=== PATIENT | female | born 1950 | race Caucasian/White ===

== ENCOUNTER 2019-08-29 12:36 | Outpatient (CLI) | payer MEDICARE, SELFPAY ==
--- NOTE | ~2019-08-29 | CT_ITS ---
EXAMINATION: CTA brain carotid EXAM DATE: 08/29/2019 14:06 INDICATION: Posterior intermittent headaches. TECHNIQUE: Noncontrast head CT. Spiral CTA of the carotid arteries was performed with intravenous i njection 100 cc of Omnipaque 350. Axial, coronal, sagittal reformatted images reviewed. Additional r eformatted images created on dedicated 3-D workstation. NASCET comparable standard used to assess th e degree of arterial stenosis. Spiral CT angiogram cerebral arteries performed with the same intrave nous injection of contrast. Source images of the brain CTA transferred to dedicated workstation for 3 -D rotational image creation. Coronal, sagittal maximum intensity pixel images also reviewed. The d ose-length product (DLP) for this examination was 1526.78 mGy-cm. The exposure was tailored accordi ng to patient size, and iterative reconstruction (ASIR) was used as additional dose reduction techniq ue. There is no prior study for comparison. FINDINGS: There is mild bilateral carotid arterial sclerosis with 0% stenosis. Mild to moderate bilat eral carotid siphon arterial sclerosis with no more than 20% stenosis bilaterally. Vertebral arteries are codominant. There is no carotid or vertebral basilar arterial dissection or fibromuscular dyspl po. There are no cerebral artery aneurysms. There is symmetric cerebral artery arborization. The sa gittal, transverse and sigmoid sinuses enhance normally, no venous sinus thrombosis. Internal cerebra l veins also enhance normally. There is no acute intraparenchymal hemorrhage. No evidence of intraparenchymal brain mass lesion. N o evidence of acute infarction. There is mild periventricular and subcortical hypodensity, nonspecifi c but probably related to small vessel ischemic disease. Punctate old lacunar infarction within each basal ganglia. There is mild prominence of the sulci and ventricles related to cerebral atrophy. Th ere is intracranial carotid arteriosclerosis. There is no mass effect or midline shift. There is no obstructive hydrocephalus suspected. There are no extra-axial collections. There are no calvarial acute fractures. Thyroid nodules. There is cervical spondylosis. There is apical mosaic attenuation t o the lungs affecting both dependent and nondependent portions. Most likely air trapping) groundglass opacities. IMPRESSION: 1. No cervical arterial dissection or cerebral artery aneurysm. 2. No carotid bulb stenosis. Scattered arterial sclerosis with less than 20% carotid siphon stenosis bilaterally. 3. Mild age-related findings. 4. Diffuse lung mosaic attenuation, more likely air trapping and ground glass opacities. 5. Thyroid nodules. Reviewed, dictated and finalized at location A. IMPRESSION: 1. No cervical arterial dissection or cerebral artery aneurysm. 2. No carotid bulb stenosis. Scattered arterial sclerosis with less than 20% c arotid siphon stenosis bilaterally. 3. Mild age-related findings. 4. Diffuse lung mosaic attenuation, more likely air trapping and ground glass opacities. 5. Thyroid nodules.
[2019-08-29 13:48] LABS: Estimated Glomerular Filt Rate > 60
== END 2019-08-29 12:37 | disposition home or self-care (01) ==
PROVIDERS: PCP Internal Medicine; Visit Provider Psychiatry & Neurology Neurology
DX: R51 Headache (principal); R91.8 Other nonspecific abnormal finding of lung field; E04.2 Nontoxic multinodular goiter
CPT/HCPCS: 36415; 70496; 70498; Q9967

== ENCOUNTER 2024-08-02 09:00 | Outpatient (RCR) | payer MEDICARE, SELFPAY ==
--- NOTE | 2024-06-22 08:43 | OTOPDC ---
Assessment and note entered by ZAKIA Carrillo/Sally, CHT Evaluation Information & Discharge Notification 06/22/24 Diagnosis G82.91, I69.351, I69.398, I63.89 Subjective Information Patient had a CVA, she is unsure of the date. She discharged home from inpatient rehab where she lives with her . She reports she has returned to being able to dress and bathe herself. Prior to her stroke she primarily did all of the cooking and her is doing most of the cooking at this time. 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 Laundry is in the basement and is taking care of this due to the stairs, prior to CVA she was doing the laundry. Patient reports she has also resumed some cleaning duties - sweeping and cleaning counters. She reports she cannot kneel to clean the shower yet. She states she has putty from rehab and she uses it regularly. Reported Pain Level Pain Score 0: Self Report Assessment OT Clinical Summary Patient referred to OT with dx of CVA, right side affected. OT evaluation completed this AM. Patient has normal and symmetrical UB strength. Life Manager strength is WNL. Fine motor coordination is WNL. She has a putty HEP from inpatient rehab and we reviewed this and she completes independently. No further skilled OT indicated at this time. D/C OT. Plan of Care OT Services Indicated No
--- NOTE | 2024-06-22 10:02 | OPREHPOC ---
Outpatient Therapy Plan of Care This is a Multidisciplinary Plan of Care that may contain components documented by all disciplines (PT, OT, and ST.) PT Problem 1 PT Problem #1 Knowledge Deficit PT Goal 1 Goal / Goal Update *indep with HEP Target Visit 8 PT Problem 2 PT Problem #2 Impaired Functional Mobility PT Goal 1 Goal / Goal Update improve mobility and safety: * 5 reps sit/stand time of 19 seconds, without use of UE's Target Visit 8 PT Goal 2 Goal / Goal Update * Segura balance/gait score of 54/56 Target Visit 8 PT Problem 3 PT Problem #3 Impaired Strength PT Goal 1 Goal / Goal Update * single leg standing R and L x 10 seconds with good stability Target Visit 8 PT Goal 2 Goal / Goal Update pt perform sitting ankle DF to 5' x 20 reps, to improve gait skill and clearing foot with walking Target Visit 8 PT Problem 4 PT Problem #4 Impaired Functional Mobility PT Goal 1 Goal / Goal Update * 2 minute walking test distance of 400' with cane Target Visit 8 PT Goal 2 Goal / Goal Update *up/down 12 steps with alternating step pattern and one hand railing, modified indep Target Visit 8
--- NOTE | 2024-06-22 10:02 | PTOPEVAL1 ---
Assessment and note entered by Abida Winchester, PT Evaluation Information Assessment Status Evaluation ICD-10 Condition Codes (PT) Abnormalities of gait and mobility R26.9,Weakness R53.1 Other ICD-10 Condition Codes ( CVA PT) Onset May 2023 Subjective Information hospitalized, in pt rehab and then home; using wheeled walker for mobility; have not been doing all the leg exercises, but walking more and doing home things. have been out in the community with her wheeled walker and did OK activity: prior to CVA- active, indep, did not use an assistive device; home with ; 4 entry steps- bilateral rails; have basement and upstairs--not been going to basement for laundry/ grand son lives upstairs; retired; GOAL: walk without the walker; get stronger and better Reported Pain Level Pain Score 5: Self Report Pain Score 0: Self Report Additional Pain Score Comments pain in R knee from previous surgery/chronic pain Assessment PT Clinical Summary Pinky is s/p CVA. She has completed in pt rehab and returned home with her . She has not had any falls and is increasing her walking and outings into the community. She has not gone into her basement. Prior to CVA, she did not use an assistive device and was indep with all home and self care tasks. She had decreased R knee ROM due to prior R hip and distal femur ORIF's. With the evaluation: decreased strength of R LE; 2 minute walking test distance of 300' with wheeled walker; 5 reps sit/stand time of 24 seconds without using her UE's; Segura balance score of 43/56--difficulty with dynamic balance and single leg standing activities; on 4 steps, uses 1 railing and single step pattern. She is motivated to return to walking without a device and getting stronger. Skilled PT services are indicated to increase LE strength, gait and balance skills, to improve mobility to walking without an assistive device and return to prior level of activity. Plan of Care Interventions Gait Training,Neuro Re-education,Patient/Caregiver Education,Therapeutic Activities,Therapeutic Exercise PT Services Indicated Yes Treatment Frequency and 2x/wk for 8 visits Duration These treatments will address the objective and functional deficits as defined above. The patient will be advanced safely and appropriately in order for the patient to progress towards his/her prior level of function. Additional exercises will be introduced and as well as a comprehensive home exercise program upon discharge, if needed, ?to ensure carryover of functional gains achieved in the clinic. This treatment plan has been reviewed and agreement upon by the patient.
--- NOTE | 2024-07-05 15:11 | PCPTNOTE ---
Canceled due to a in the family. AKS
--- NOTE | 2024-07-24 12:01 | PTOPDC ---
Assessment and note entered by Abida Winchester, PT Assessment Status Discharge ICD-10 Condition Codes (PT) Abnormalities of gait and mobility R26.9,Weakness R53.1 Other ICD-10 Condition Codes ( CVA PT) Onset May 2023 Subjective Information feel like balance and walking are a little better; not comfortable walking with the cane, have one at home, but do not use it; no falls; is using the wheeled walker for walking; in her bathroom, it is small and not enough room for the walker, so hold onto counter top; is wearing the AFO and it helps; use the motorized scooter for shopping and long distances; Reported Pain Level Pain Score 0: Self Report Assessment PT Clinical Summary Pinky has received 7 PT sessions. Compared to the initial evaluation: Segura balance score from 43 to 48/56; increase strength of R LE; 2 minute walking test distance with wheeled walker from 300 to 385' and with cane 300'; she is awkward with using the cane and does better without it; no longer requires the R AFO for walking; is independent on stairs with use of one hand railing; education completed for HEP. She has good safety awareness and has not had any falls. The goals were partially met. Discharge PT. She is to continue with the HEP and walking as tolerated, to increase her endurance and activity level. Plan of Care PT Services Indicated No
--- NOTE | 2024-08-02 15:39 | STOPEVDC ---
Assessment and note entered by Myra Schneider, GAS LINE SERVICER Thank you for referring Pinky Yao to [facility].? An evaluation has been completed. No further treatment is needed. Evaluation Information Assessment Status Evaluation Diagnosis I69.398 CVA, I63.89 other cerebral infarction Onset 05-31-24 Subjective Information Patient was referred for a skilled ST evaluation post CVA. Patient participated in therapy treatment after hospitalization in an acute [facility] facility and reported that she felt it was very beneficial and saw great improvements. Patient reported that post CVA she had difficulty with her memory and word finding abilities. Patient reported that currently she feels that she is very close to where she was with her cognitive-communication skills prior to CVA. She continues to participate in various word games and other cognitive tasks to challenge herself in her environment. Discussion with patient regarding plan for skilled ST evaluation to assess areas of language and cognition to determine if any deficits continue to persist with response in understanding with results below. Reported Pain Level Pain Score 0: Self Report Assessment ST Clinical Summary Patient was referred for a skilled ST evaluation due to recent CVA I69.398 and other cerebral infarction I63.89. Patient participated in skilled ST treatment in an acute [facility] facility for several weeks and is currently living at home with significant other. Patient reported that after the stroke she had difficulty with cognition and communication skills but after completion of skilled ST treatment patient feels that she is currently at her PLOF. Throughout the assessment the patient spoke at the conversational level with very minimal to no difficulty with word finding skills. The SLUMS was administered with a score of 27/30 indicating normal cognitive-communication skills. Parts of the [facility] Cognitive evaluation and Adult Language Evaluation were administered during the session with very minimal difficulties within complex directives, moderate/ complex paragraph retention, moderate complexity reading comprehension, divergent naming, and sorting/categorization skills. Throughout testing patient indicated whether or not deficits were present prior to the CVA with all areas of testing currently within PLOF per patient report. Patient reported some mild difficulties with memory prior to CVA. Skilled ST is not warranted at this time due to patient presenting at PLOF with education given regarding tasks to continue to target at home to improve cognitive-communication skills with response in understanding and agreement. Plan of Care ST Services Indicated No Treatment Frequency and Evaluation only at this time. Duration
== END 2024-08-03 12:26 | disposition home or self-care (01) ==
LOC: ANHST 09:00
PROVIDERS: PCP Internal Medicine; Visit Provider Internal Medicine
DX: I69.351 Hemiplegia and hemiparesis following cerebral infarction affecting right dominant side (principal); I69.398 Other sequelae of cerebral infarction; I63.89 Other cerebral infarction; R53.1 Weakness; R26.9 Unspecified abnormalities of gait and mobility
CPT/HCPCS: 92523; 96125; 97110; 97116; 97161; 97165; 97530

== ENCOUNTER 2024-08-09 09:43 | Outpatient (CLI) | payer MEDICARE, SELFPAY ==
--- NOTE | ~2024-08-09 | CT_ITS ---
CT Scan of the Chest without Contrast: Clinical Indication: Lung nodule Technique: Contiguous sections were acquired throughout the chest without intravenous contrast. Dose reduction technique was used on this scan by utilizing automated exposure control and iterative recon struction technique. The dose-length product (DLP) was 83.55 mGy-cm. Findings: There is no evidence of any significant mediastinal, hilar or axillary lymphadenopathy. Calcified med iastinal and hilar lymph nodes are present. Extensive coronary artery calcifications are present. There is no evidence of pleural or pericardial effusion. Moderate emphysema present. Several calcified granulomas are present. Images through the upper abdomen reveal no abnormalities. Impression: Moderate emphysema. Evidence of prior granulomatous disease. Reviewed, dictated and finalized at location . Impression: Moderate emphysema. Evidence of prior granulomatous disease.
--- OUTSIDE RECORDS SUMMARY | 2024-08-09 10:53 | XMS_ITS | Data Portability ---
Author Organization [place] [facility], Main Office Address [address] [place] [address] Care Team Providers Care Senior Ui Ux Designer Name Role Phone NOEL RODAZ Primary Care Provider NOEL ORDAZ Referring Provider [phone] Assessment Encounter Date Assessment Date Assessment LastModified by Organization Details LastModified Time 01/05/2024 01/05/2024 73 yo patient presents today after a fall on 01/02/24. She fell onto her left side getting into bed. She presented to the ED and was told she had a broken wrist. She was placed in a splint and told to follow up with us. Today she complains of pain in the left shoulder, wrist, and knee. The knee pain did not start until a few days after the fall. She walks with a cane. She was given pain medications and 600mg ibuprofen in the ED, which has been helping with the pain. Physical exam: Tenderness around humeral head. Tenderness with palpitation around wrist. Edema around wrist and hand. No tenderness around elbow or forearm. Able to perform slight ROM of elbow. Able to wiggle fingers. Sensation is intact throughout arm. No pain with palpitation around knee. ROM 0-110. No edema. Imaging: X-rays reviewed show mildly displaced fracture of the left humeral head. Mildly displaced fracture of the left distal radius and chronic fracture of ulnar styloid. Left knee shows no acute bony abnormality or fracture. Moderate degenerative changes with joint space narrowing on the low lateral side. For the humeral head fracture we will place her in a cuff and collar. For the distal radius fracture we will place her in a removable brace. We stated that she must wear it at all times like a cast unless doing hygiene. She can continue to take the ibuprofen and pain medications given to her in the ED. we will see her back in 2 weeks with repeat x-rays to check her healing. She is in agreement with this plan. Not available 01/05/2024 11:04:36 01/19/2024 01/19/2024 73 yo patient presents today for follow up of left proximal humerus and left distal radius fracture after a fall on 01/02/24. She has been wearing the wrist brace and cuff and collar sling. She states she has been letting the arm dangle without the sling often. Physical exam: Tenderness around humeral head. Tenderness with firm palpitation around wrist. No edema. Able to perform ROM of elbow. Sensation is intact throughout arm. Imaging: X-rays reviewed show mildly displaced fracture of the left humeral head. No obvious fracture line seen in distal radius. For the humeral head fracture we will continue the cuff and collar. We demonstrated the correct way to wear it so the arm does not dangle. For the distal radius fracture we will continue the removable brace. She can continue to take the ibuprofen and pain medications given to her in the ED as needed. We will see her back in 2 weeks with repeat x-rays to check her healing. She is in agreement with this plan. Not available 01/19/2024 11:15:09 02/02/2024 02/02/2024 73-year-old female presents for follow-up of her left shoulder and left wrist fractures being treated non operatively. She reports feeling little bit better, still having soreness, currently rates her pain 7/10. She has been using a cuff and collar and wearing a wrist brace. She still has some tenderness over the proximal humerus and distal radius. No pain with gentle motion. Neurovascular intact. X-rays reviewed, demonstrating healing proximal humerus fracture, healing distal radius fracture, maintenance of alignment She should continue wearing the sling and brace, but may come out to work on motion and prevent stiffness. We will also give her an order for physical therapy so they can work with her on that as well. We will see her back in 3 weeks with repeat x-rays. She is in agreement with the plan. Not available 02/03/2024 15:10:03 02/28/2024 02/28/2024 73-year-old female presents for follow-up of her left proximal humerus fracture treated non operatively, and her left distal radius fracture also treated non operatively. She reports feeling better with the wrist, does not really bother her. She is still having pain with the shoulder rated as 7/10. She has been doing physical therapy. She is still wearing the sling. She reports PT has been helping. No tenderness around the wrist. Good motion of the fingers and wrist, 2+ radial pulse. She has no tenderness with gentle range of motion of the shoulder and no soreness with palpation. She does have some stiffness with pain with passive range of motion X-rays were reviewed, demonstrating healing fracture of the shoulder and wrist For her wrist, she is doing well and she may discontinue the brace. The shoulder also appears to be healing wells have stiffness which is causing pain. We will have her continue physical therapy, working on the stiffness and range of motion. We will see her back in 6 weeks with repeat x-rays of shoulder. Not available 02/28/2024 12:39:49 04/10/2024 04/10/2024 73-year-old female presents for follow-up of her left proximal humerus fracture and left distal radius fracture both treated non operatively. Her original injury was 01/02/2024. She reports some soreness as well as some stiffness with the shoulder. Pain controlled. She has no focal tenderness over the distal radius side of the fracture as well as over the proximal humerus. She has soreness over the wrist and hand with movement of the wrist. She has active elevaion to about 80 , external rotation 30, internal rotation to back pocket. X-rays were reviewed of the shoulder and wrist, demonstrating healed fractures At this point her fractures are healed. She should continue physical therapy to work on mobility and strengthening. She can not start until the beginning of next year because of insurance issues so we will give her a home exercise program in the meantime. She may follow-up as needed, call with any questions or concerns. Not available 04/10/2024 11:10:05 Plan of Treatment Reminders Order Date Submit Date Provider Last Modified By Organization Details Last Modified Time Details Appointments New Patient 15 2024 09:45A Pilar Hernandez DPM Not available Not available Not available Lab None recorded. Referral physical therapist referral - Please contact pt to schedule on or after 05/03/2024. Thanks 2023 [facility] [place], [address], [place], [address], 04/11/2024 10:10:34 physical therapist referral - Please contact patient to schedule 2023 [facility], [address] [place], [address], 02/15/2024 14:55:44 occupatio nal therapist referral - Please contact patient to schedule [address] Physical, [facility], [address] [place], [address], 02/02/2024 21:15:03 Procedures None recorded. Surgeries None recorded. Imaging XR, shoulder, 2 or more view 2023 [email or web address], [address] [place] [address], [phone], 04/10/2024 20:15:51 XR, wrist, 3 or more view 2023 [email or web address], [address] [place] [address], [phone], 04/10/2024 20:15:51 XR, shoulder, 2 or more view 2023 024 [email or web address], [address] [place] [address], [phone], 03/01/2024 17:07:46 XR, wrist 2023 024 [email or web address], [address] [place] [address], [phone], 03/01/2024 17:07:46 XR, shoulder 2023 024 [email or web address] [place], [address], [place], [address], 02/03/2024 16:23:40 XR, wrist 2023 024 [email or web address] [place], [address], [place], [address], 02/03/2024 16:24:00 XR, shoulder, 2 or more view 2023 024 [email or web address] [facility] [place], [address], [place], [address], 01/19/2024 16:27:44 XR, wrist, 3 or more view 2023 024 [email or web address] [place], [address], [place], [address], 01/19/2024 16:27:44 XR, knee, 3 view 2023 024 [facility] [place], [address], [place], [address], 01/05/2024 16:35:10 Medication Orders None recorded. Patient TargetsNo targets recorded. Patient InstructionsNo instructions recorded. Reason for Referral Physical Therapist Referral for Pain of left shoulder joint Please contact patient to schedule Referring Physician: Christiano Loera, Orthopedic Surgery, Encounter Date: 02/02/2024 Occupational Therapist Refer ral for Pain of left wrist Please contact patient to schedule Referring Physician: Christiano Loera, Orthopedic Surgery, Encounter Date: 02/02/2024 Physical Therapist Referral for Pain of left shoulder joint L shoulder Please contact pt to schedule on or after 05/03/2024. Thanks Referring Physician: Christiano Loera, Orthopedic Surgery, Encounter Date: 04/10/2024 Results Created Date Observation Date Name Description Value Unit Range Abnormal Flag Note LastModifiedBy Organization Detail LastModifiedTime 01/04/2001/02/2024 shaei ng/judi davis tic resul t No observ ation record ed. [email or web address] Not Available 01/03 10:07:57 01/05/20 24 XR, knee, 3 view No observ ation record ed. [email or web address] [facility] [place] [address], [place], [address], 01/05/2024 10:57:36 01/19/20 24 XR, shoul rosemary, 2 or more view No observ ation record ed. [email or web address] [facility] [place] [address], [place], [address], 01/19/2024 11:15:11 01/19/20 24 XR, wrist , 3 or more view No observ ation record ed. [email or web address] [facility] [place] [address], [place], [address], 01/19/2024 11:15:16 02/02/20 24 XR, shoul rosemary No observ ation record ed. [email or web address] [facility] [place] [address], [place], [address], 02/02/2024 10:34:49 02/02/20 24 XR, wrist No observ ation record ed. [email or web address] [facility] [place] [address], [place], [address], 02/02/2024 10:34:57 02/28/20 24 XR, shoul rosemary, 2 or more view No observ ation record ed. [email or web address] [facility] [address], [place], [address], 02/28/2024 11:04:53 02/28/20 24 XR, wrist No observ ation record ed. [email or web address] [facility] [address], [place], [address], 02/28/2024 11:05:11 04/10/20 24 XR, shoul rosemary, 2 or more view No observ ation record ed. [email or web address] [facility] [address], [place], [address], 04/10/2024 10:50:51 04/10/20 24 XR, wrist , 3 or more view No observ ation record ed. [email or web address] [facility] [address], [place], [address], 04/10/2024 10:56:46 Result Notes None recorded. Problems Name Problem SNOMED Code Status Onset Date Resolution Date Notes Provider Name and Address Organization Details Recorded Time Anxiety 32359919 Active 2022 Not Available [facility] 3 07:43:33 Cough 27008228 Active 2022 Not Available [facility] 3 07:43:33 CT of chest abnormal 13652386755 237465 Active 2022 Not Available [facility] 3 07:43:33 Thyroid nodule 214464272 Active 2022 referred to Endocrino logy Not Available [facility] 3 07:43:33 Bilateral chronic serous otitis 138992197 Active 2023 Shankar Hoover MD [address] [facility], [facility] [address], [place], [address] , [facility] 4 11:06:18 Pain of left shoulder joint 07594720637 593055 Active 2023 MARYURI Miguel null, [facility] 4 10:19:12 Pain of left wrist 68313660868 9102 Active 2023 MARYURI Miguel null, [facility] 4 10:19:33 Pain of left knee joint 98550507057 4107 Active 2023 MARYURI Miguel, [facility] 4 10:19:54 Achilles tendiniti s 25091639 Active 2019 Not Available [facility] 3 07:43:32 Contusion of right hip region 59566932571 804712 Active 2021 Not Available [facility] 3 07:43:32 Hyperchol esterolem ia 24942489 Active 2019 Not Available [facility] 3 07:43:32 Acquired trigger finger 9406617 Active Not Available [facility] 3 07:43:33 Radiother apy follow-up 443231946 Active Not Available [facility] 3 07:43:33 Anxiety disorder 700749978 Active Not Available [facility] 3 07:43:33 Abdominal pain 71015767 Active 2021 Not Available [facility] 3 07:43:33 Osteophyt e of bone 60571168133 9100 Active 2019 Not Available [facility] 3 07:43:33 Osteoarth ritis of knee 021224603 Active 2021 Not Available [facility] 3 07:43:33 Fractured nasal bones 791812058 Active Not Available [facility] 3 07:43:33 Long-term drug therapy Active 2021 Not Available [facility] 3 07:43:33 Pure hyperchol esterolem ia 564800408 Active Not Available [facility] 3 07:43:33 Adult health examinati on Active 2021 Not Available [facility] 3 07:43:33 Anemia 620215278 Active 2021 Not Available [facility] 3 07:43:33 Low back pain 720585399 Active 2016 Not Available [facility] 3 07:43:33 Pain in right arm 640962145 Active Not Available [facility] 3 07:43:33 Disorder of adrenal gland 66890938 Active 2021 Not Available [facility] 3 07:43:33 Knee pain Active Not Available [facility] 3 07:43:33 Screening for disorder Active 2021 Not Available [facility] 3 07:43:33 Type 2 diabetes mellitus without complicat ion 320253669 Active 2021 Not Available [facility] 3 07:43:33 Pain in right hip joint 25366019910 9102 Active 2021 Not Available [facility] 3 07:43:33 Pain of right wrist 77926664128 9100 Active 2017 Not Available [facility] 3 07:43:33 Trochante heladio bursitis of right hip 66718728153 9100 Active 2021 Not Available [facility] 3 07:43:33 Osteoarth ritis of right knee joint 93400886100 9100 Active 2018 Not Available [facility] 3 07:43:33 Vitamin D deficienc y 41278110 Active 2018 Not Available [facility] 3 07:43:33 Arthritis 5257421 Active 2019 Not Available [facility] 3 07:43:33 Osteoarth ritis 590626972 Active Not Available [facility] 3 07:43:33 Dysphagia 95844893 Active 2021 Not Available [facility] 3 07:43:33 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 Not Available [facility] 3 07:43:33 Acute urinary tract infection 972796851 Active 2021 Not Available [facility] 3 07:43:33 Dysuria 52568937 Active 2016 Not Available [facility] 3 07:43:33 Acute conjuncti vitis 57500256 Active 2021 Not Available [facility] 3 07:43:33 Essential hypertens ion 61889505 Active Not Available [facility] 3 07:43:33 Urinary tract infectiou s disease 91153598 Active 2021 Not Available [facility] 3 06:42:22 Rhinitis 35610304 Active 2017 Not Available [facility] 3 07:43:33 Diabetes mellitus 40695867 Active Not Available [facility] 3 07:43:33 Nodule of lung 598344587 Active 2021 3.5 mm right lower lobe August 2021 Not Available [facility] 3 07:43:33 Nodule of adrenal cortex 111774419 Active 2021 18 mm right adrenal lipoma Not Available [facility] 3 07:43:33 Weight loss 32856254 Active 2021 Not Available [facility] 3 07:43:33 Closed intertroc hanteric fracture 16763954 Active 2020 Not Available [facility] 3 07:43:33 Conjuncti vitis 8808857 Active 2021 Not Available [facility] 3 07:43:33 Notes:Some problems listed i n Document: #[id number] could not be added to this patient's chart. Please review this document and add these problems to the patient's chart manually as needed. Problem Notes None recorded. Procedures Surgical History Date Name Laterality Status Provider Name and Address Organization Details Recorded Time 08/15/19 23 Medicare Wellness CPT Code, subsequent completed Veda Franco RN [email or web address] 08/14/2022 14:14:08 07/17/19 23 Ortho - Cortisone Injection completed Kendrick Quintana MD [address] [place] [address], [place] [address], [place], [address], [email or web address] 07/16/2022 11:08:33 07/17/19 22 EGD completed Not Available [facility] 3 04:42:13 07/17/19 22 Colonoscopy completed Not Available [facility] 07/02/19 23 04:42:13 01/07/20 21 Most Recent Bone Density completed Not Available [facility] 07/01/2022 04:42:11 12/16/19 19 Date of Last Colonoscopy completed Not Available [facility] 07/01/2022 04:42:11 12/16/19 19 Colonoscopy completed Not Available [facility] 07/02/19 04:42:13 10/01/19 17 release of trigger finger completed Not Available [facility] 07/01/2022 04:42:13 10/21/19 16 release of trigger finger completed Not Available [facility] 07/01/2022 04:42:13 06/12/19 11 Colonoscopy completed Not Available [facility] 07/02/19 04:42:13 completed Not Available [facility] 0 07/01/2022 04:42:13 Unlisted px femur/knee completed Not Available [facility] 07/01/2022 04:42:13 Back Surgery completed [facility] 07/01/2022 04:42:13 Gallbladder Surgery completed Not Available [facility] 07/01/2022 04:42:13 Tonsillectomy completed Not Available [facility] 07/01/2022 04:42:13 Imaging Results Imaging Date Name Status LastModified by Organiz ation Details LastModified Time 01/02/2024 imaging/diagn ostic result completed [email or web address] Information not available 01/04/2024 10:07:57 01/05/2024 XR, knee, 3 view completed [email or web address] [facility] [place] [address], [place], [address], 01/05/2024 10:57:36 01/19/2024 XR, shoulder, 2 or more view completed [email or web address] [facility] [place] [address], [place], [address], 01/19/2024 11:15:11 01/19/2024 XR, wrist, 3 or more view completed [email or web address] [facility] [place] [address], [place], [address], 01/19/2024 11:15:16 02/02/2024 XR, shoulder completed [email or web address] [facility] [address], [place], [address], 02/02/2024 10:34:49 02/02/2024 XR, wrist completed [email or web address] [facility] [address], [place], [address], 02/02/2024 10:34:57 02/28/2024 XR, shoulder, 2 or more view completed [email or web address] [facility] [address], [address], 02/28/2024 11:04:53 02/28/2024 XR, wrist completed [email or web address] [facility] [address], [address], 02/28/2024 11:05:11 04/10/2024 XR, shoulder, 2 or more view completed [email or web address] [facility] [address], [address], 04/10/2024 10:50:51 04/10/2024 XR, wrist, 3 or more view completed [facility] [address], [address], 04/10/2024 10:56:46 Procedure Notes None recorded. Medical Equipment None Reported. Allergies No known drug allergies Medications Name Sig Start Date Stop Date Status Note LastModified by Organization Details LastModified Time celecoxib 200 mg capsule TAKE 1 CAPSULE BY MOUTH ONCE DAILY 11/26 completed Not Available Not Available Not Available cyclobenz aprine 10 mg tablet TAKE 1 TABLET BY MOUTH EVERY 8 HOURS active Not Available Not Available No t Available amoxicill in 500 mg capsule active Not Available Not Available Not Available atorvasta tin 40 mg tablet TAKE 1 TABLET BY MOUTH ONCE DAILY active Not Available Not Available No t Available methocarb jennifer 500 mg tablet 11/06 completed Not Available Not Available Not Available metformin 500 mg tablet TAKE 2 TABLETS BY MOUTH TWICE DAILY 05/15 completed Not Available Not Available Not Available atorvasta tin 80 mg tablet TAKE 1 TABLET BY MOUTH ONCE DAILY active Not Available Not Available No t Available prednison e 10 mg tablet TAKE 1 TABLET BY MOUTH THREE TIMES DAILY FOR 3 DAYS, THEN TAKE 1 TAB TWICE DAILY FOR 2 DAYS, AND THEN TAKE 1 TAB ONCE DAILY FOR 1 DAY 12/02 completed Not Available Not Available Not Available cefuroxim e axetil 250 mg tablet 11/06 completed Not Available Not Available Not Available atorvasta tin 20 mg tablet TAKE 1 TABLET BY MOUTH ONCE DAILY active Not Available Not Available No t Available atorvasta tin 10 mg tablet Take 1 tablet every day by oral route. 05/15 completed Not Available Not Available Not Available Pneumovax -23 25 mcg/0.5 mL injection solution active Not Available Not Available Not Available azithromy miguel 250 mg tablet TAKE 2 TABLETS BY MOUTH ON DAY 1, AND THEN TAKE 1 TABLET BY MOUTH ONCE A DAY ON DAY 2 THROUGH DAY 5 12/07 completed Not Available Not Available Not Available aspirin 325 mg tablet Take 1 tablet every day by oral route. 2020 active Not Available Not Available Not Avai lable ibuprofen 800 mg tablet 11/06 completed Not Available Not Available Not Available fluconazo le 150 mg tablet Take 1 tablet every day by oral route. 10/02 completed Not Available Not Available Not Available hydrocodo ne 5 mg-acetam inophen 325 mg tablet Take 1 tablet every 6 hours by oral route. active Not Available Not Available No t Available ondansetr on HCl 4 mg tablet TAKE 1 TABLET BY MOUTH EVERY 6 HOURS 12/07 completed Not Available Not Available Not Available bupivacai ne HCl 0.5 % (5 mg/mL) injection solution Take 20 mg by injectio n route. 12/02 completed Not Available Not Available Not Available prednison e 20 mg tablet Take 2 tablets every day by oral route for 5 days. active Not Available Not Available No t Available amlodipin e 2.5 mg tablet TAKE 1 TABLET BY MOUTH ONCE DAILY active Not Available Not Available No t Available amlodipin e 5 mg tablet TAKE 1 TABLET BY MOUTH ONCE DAILY active Not Available Not Available No t Available peg-elect rolyte solution 420 gram oral solution 08/08 completed Not Available Not Available Not Available tramadol 50 mg tablet TAKE 1 TABLET BY MOUTH EVERY 8 HOURS NEEDED 06/22 completed Not Available Not Available Not Available quinapril 40 mg tablet Take 1 tablet by mouth once daily 04/30 completed changed to Lisinopr il due to backorde r Not Available Not Available Not Available ondansetr on 8 mg disintegr ating tablet DISSOLVE 1 TABLET BY MOUTH EVERY 8 HOURS NEEDED 08/08 completed Not Available Not Available Not Available prednison e 10 mg tablets in a dose pack Take 1 tab by mouth, 3 times a day for 3 daysTake 1 tab by mouth 2 times a day for 2 daysTake 1 tab by mouth once a day for 1 day 12/02 completed Not Available Not Available Not Available amoxicill in 875 mg tablet 11/06 completed Not Available Not Available Not Available citalopra m 20 mg tablet TAKE 1 TABLET BY MOUTH ONCE DAILY active Not Available Not Available No t Available Kenalog 10 mg/mL suspensio n for injection Take 20 mg by injectio n route. 10/14 completed [facility]: [id number] Not Available Not Available Not Available hydrocodo ne 7.5 mg-acetam inophen 325 mg tablet TAKE 1 TABLET BY MOUTH EVERY 6 TO 8 HOURS NEEDED 04/03 completed Not Available Not Available Not Available cephalexi n 500 mg capsule TAKE 1 CAPSULE BY MOUTH EVERY 8 HOURS FOR 7 DAYS 09/25 completed Not Available Not Available Not Available metformin 1,000 mg tablet TAKE 1 TABLET BY MOUTH TWICE DAILY active Not Available Not Available No t Available docusate sodium 100 mg capsule TAKE 1 CAPSULE BY MOUTH TWICE DAILY 04/03 completed Not Available Not Available Not Available sertralin e 25 mg tablet Take 1 tablet every day by oral route. 12/07 completed Not Available Not Available Not Available monteluka st 10 mg tablet Take 1 tablet every day by oral route. active Not Available Not Available No t Available ergocalci ferol (vitamin D2) 1,250 mcg (50,000 unit) capsule take one capsule by [facility] for 12 weeks active Not Available Not Available No t Available lotepredn ol etabonate 0.5 % eye drops,tarah pension INSTILL ONE DROP INTO BOTH EYES FOUR TIMES DAILY FOR 10 DAYS, SHAKE WELL BEFORE USE 04/03 completed Not Available Not Available Not Available ibuprofen 600 mg tablet TAKE 1 TABLET BY MOUTH EVERY 6 HOURS NEEDED FOR PAIN active Not Available Not Available No t Available methylpre dnisolone 4 mg tablets in a dose pack TAKE BY MOUTH DIRECTED ON INSIDE OF PACKAGE 01/04 completed Not Available Not Available Not Available lisinopri l 40 mg tablet TAKE 1 TABLET BY MOUTH ONCE DAILY 02/01 completed changed to losartan Not Available Not Available Not Available cefdinir 300 mg capsule TAKE 1 CAPSULE BY MOUTH TWICE DAILY FOR 7 DAYS 01/04 completed Not Available Not Available Not Available losartan 100 mg tablet TAKE 1 TABLET BY MOUTH ONCE DAILY active Not Available Not Available No t Available fluticaso ne propionat e 50 mcg/actua tion nasal spray,tarah pension [place] 2 sprays every day by intranas al route at dinner. active Not Available Not Available No t Available doxycycli ne hyclate 100 mg tablet TAKE 1 TABLET BY MOUTH TWICE DAILY FOR 7 DAYS 02/01 completed Not Available Not Available Not Available amoxicill in 875 mg-potass ium clavulana te 125 mg tablet 10/02 completed Not Available Not Available Not Available neomycin 3.5 mg/g-poly myxin B 10,000 unit/g-de xameth 0.1 % eye oint 11/06 completed Not Available Not Available Not Available Actonel 35 mg tablet TAKE 1 TABLET BY MOUTH ONCE A WEEK 09/06 completed Not Available Not Available Not Available Pneumovax -23 25 mcg/0.5 mL injection syringe PHARMACI ST ADMINIST ERED IMMUNIZA TION ADMINIST ERED AT TIME OF DISPENSI NG 08/19 completed Not Available Not Available Not Available ezetimibe 10 mg tablet TAKE 1 TABLET BY MOUTH ONCE DAILY active Not Available Not Available No t Available Crestor 10 mg tablet Take 1 tablet every day by oral route. 02/19 completed Not Available Not Available Not Available nitrofura ntoin monohydra te/macroc rystals 100 mg capsule TAKE 1 CAPSULE BY MOUTH TWICE DAILY FOR 5 DAYS 02/01 completed Not Available Not Available Not Available calcium 1200 daily 04/19 completed Not Available Not Available Not Available lidocaine (PF) 10 mg/mL (1 %) injection solution In office injectio n administ ered by the provider active [facility]: [phone] 10-17 Not Available Not Available Not Available Zostavax (PF) 19,400 unit/0.65 mL subcutane ous suspensio n active Not Available Not Available Not Available Januvia 100 mg tablet take one tablet by mouth once daily 08/28 completed started on Ozempic Not Available Not Available Not Available FreeStyle Lite Strips 09/05 completed Not Available Not Available Not Available Adacel (Tdap Adolesn/A dult)(PF) 2 Lf-(2.5-5 -3-5)-5 Lf/0.5 mL IM syringe PHARMACI ST ADMINIST ERED IMMUNIZA TION ADMINIST ERED AT TIME OF DISPENSI NG active Not Available Not Available No t Available OneTouch Delica Lancets 33 gauge USE 1 LANCET TO CHECK GLUCOSE ONCE DAILY 01/04 completed Not Available Not Available Not Available Prolia 60 mg/mL subcutane ous syringe Inject 1 mL by subcutan eous route. 04/19 completed lot # [id number] - exp. 03/22 - given in left deltoid Not Available Not Available Not Available Tobradex ST 0.3 %-0.05 % eye drops,tarah pension INSTILL 3 DROP INTO BOTH EYE(S) BY OPHTHALM IC ROUTE THREE TIMES DAILY FOR 7 Days 12/07 completed Not Available Not Available Not Available Suprep Bowel Prep Kit 17.5 gram-3.13 gram-1.6 gram oral solution 08/03 completed Not Available Not Available Not Available ropivacai ne (PF) 5 mg/mL (0.5 %) injection solution Take 20 mg by injectio n route. 10/14 completed Not Available Not Available Not Available OneTouch Delica Lancets 30 gauge USE ONE LANCET TO CHECK GLUCOSE ONCE DAILY 01/04 completed Not Available Not Available Not Available Farxiga 5 mg tablet TAKE 1 TABLET BY MOUTH ONCE DAILYn eeds appt 12/20 completed Not Available Not Available Not Available Fluzone High-Dose 9789-4788 (PF) 180 mcg/0.5 mL intramusc ular syringe 08/27 completed Not Available Not Available Not Available Shingrix (PF) 50 mcg/0.5 mL intramusc ular suspensio n, kit PHARMACI ST ADMINIST ERED IMMUNIZA TION ADMINIST ERED AT TIME OF DISPENSI NG 08/19 completed Not Available Not Available Not Available Ozempic 0.25 mg or 0.5 mg (2 mg/1.5 mL) subcutane ous pen injector INJECT 0.5 MG SUBCUTAN EOUSLY EVERY WEEK 06/22 completed Not Available Not Available Not Available Loud MountainToNovint Ultra Blue Test Strip USE ONE STRIP TO CHECK GLUCOSE ONCE DAILY 01/04 completed Not Available Not Available Not Available Fluzone High-Dose 2018- (PF) 180 mcg/0.5 mL intramusc ular syringe PHARMACI ST ADMINIST ERED IMMUNIZA TION ADMINIST ERED AT TIME OF DISPENSI NG 08/03 completed Not Available Not Available Not Available Fluzone High-Dose Quad (PF) 240 mcg/0.7 mL IM syringe PHARMACI ST ADMINIST ERED IMMUNIZA TION ADMINIST ERED AT TIME OF DISPENSI NG 08/19 completed Not Available Not Available Not Available Ozempic 1 mg/dose (4 mg/3 mL) subcutane ous pen injector 06/22 completed Not Available Not Available Not Available Vitals Date Recorded Body height Body mass index (BMI) Body weight Pain severity - 0-10 verbal numeric rating [Score] - Reported Provider Name and Address Organization Details Last Updated DateTime 01/05/2024 165.1 cm 28.3 kg/m2 42766.7 g 9 MARYURI [email or web address] 01/05/2024 10:15:43 Date Recorded Body height Body mass index (BMI) Body weight Pain severity - 0-10 verbal numeric rating [Score] - Reported Provider Name and Address Organization Details Last Updated DateTime 01/19/2024 165.1 cm 28.3 kg/m2 66776.7 g 6 MARYURI [email or web address] 01/19/2024 09:57:56 Date Recorded Body height Provider Name an d Address Organization Details Last Updated DateTime 02/02/2024 165.1 cm Neda Braxton [facility] 02/02/2024 10:33:54 Date Recorded Body height Body mass index (BMI) Body weight Pain severity - 0-10 verbal numeric rating [Score] - Reported Provider Name and Address Organization Details Last Updated DateTime 02/28/2024 165.1 cm 28.3 kg/m2 64344.7 g 7 Suzanne Ferguson [facility] 02/28/2024 11:04:17 Date Recorded Body height Body mass index (BMI) Body weight Pain severity - 0-10 verbal numeric rating [Score] - Reported Provider Name and Address Organization Details Last Updated DateTime 04/10/2024 165.1 cm 28.3 kg/m2 21760.7 g 7 Suzanne Ferguson [facility] 04/10/2024 10:49:54 Social History Question Answer Notes LastModified by Organizat ion Details LastModified Time Tobacco Smoking Status Former Smoker quit in 1999 Not Available [facility] 07/01/2022 04:41:55 Do You Have An Advance Directive? Yes MIGRATION.63440 86670 Information not available 07/01/2022 What Is Your Level Of Alcohol Consumption? None MIGRATION.04352 80116 Information not available 07/01/2022 Are You Blind Or Do You Have Difficulty Seeing? No MIGRATION.81991 79566 Information not available 07/01/2022 What Is Your Level Of Caffeine Consumption? Occasional MIGRATION.39624 09031 Information not available 07/01/2022 How Much Tobacco Do You Chew? None MIGRATION.18682 94835 Information not available 07/01/2022 In The 14 Days Before Symptom Onset, Have You Had Close Contact With A Laboratory-confi rmed COVID-19 While That Case Was Ill? No MIGRATION.99300 74948 Information not available 07/01/2022 In The 14 Days Before Symptom Onset, Have You Had Close Contact With A Person Who Is Under Investigation For COVID-19 While That Person Was Ill? No MIGRATION.54383 29881 Information not available 07/01/2022 Are You Deaf Or Do You Have Serious Difficulty Hearing? No MIGRATION.55363 03076 Information not available 07/01/2022 What Type Of Diet Are You Following? REGULAR MIGRATION.02996 57200 Information not available 07/01/2022 Which Illicit Or Recreational Drugs Have You Used? None MIGRATION.80905 71938 Information not available 07/01/2022 Do You Or Have You Ever Used E-cigarettes Or Vape? Never Used Electronic Cigarettes MIGRATION.00704 29460 Information not available 07/01/2022 What Is The Highest Grade Or Level Of School You Have Completed Or The Highest Degree You Have Received? [id number] MIGRATION.96483 95294 Information not available 07/01/2022 What Is Your Occupation? Retired MIGRATION.79813 00516 Information not available 07/01/2022 Have There Been Any Changes To Your Family Or Social Situation? No MIGRATION.22348 65503 Information not available 07/01/2022 What Is The Fluoride Status Of Your Home? Unknown MIGRATION.31226 22113 Information not available 07/01/2022 When Did You Quit Smoking? 16+yearssincelastc igarette MIGRATION.88989 50704 Information not available 07/01/2022 Are There Any Guns Present In Your Home? No MIGRATION.53507 24306 Information not available 07/01/2022 Do You Use Insect Repellent Routinely? No MIGRATION.78857 49380 Information not available 07/01/2022 Where Do You Live? [facility] MIGRATION.86457 18976 Information not available 07/01/2022 Presence Of Domestic Violence No Information not available 08/14/2022 Guns Present In The Home? No Information not available 08/14/2022 Are You Able To Care For Yourself? Yes Information not available 08/14/2022 Are You Blind Or Do Yo Have Difficulty Seeing? No Information not available 08/14/2022 Are You Deaf Or Do You Have Serious Difficulty Hearing? No Information not available 08/14/2022 General Stress Level? Moderate Information not available 08/14/2022 Live Alone Of With Others? With Others Information not available 08/14/2022 Do You Have A Medical Power Of Tip Printer? No MIGRATION.15440 99389 Information not available 07/01/2022 What Was The Date Of Your Most Recent Tobacco Screening? 01/05/2024 [email or web address] Information not available 01/05/2024 Do You Have Any Pets? Yes MIGRATION.71293 83281 Information not available 07/01/2022 What Is Your Relationship Status? Domestic Partner MIGRATION.30456 14692 Information not available 07/01/2022 Do You Use Your Seat Belt Or Car Seat Routinely? Yes MIGRATION.87793 86290 Information not available 07/01/2022 Do You Have Smoke And Carbon Monoxide Detectors In Your Home? Yes MIGRATION.17996 96756 Information not available 07/01/2022 Are You Passively Exposed To Smoke? No MIGRATION.46264 51972 Information not available 07/01/2022 Do You Or Have You Ever Used Smokeless Tobacco? Never Used Smokeless Tobacco MIGRATION.99058 81276 Information not available 07/01/2022 Are There Any Smokers In Your House? No MIGRATION.83620 66624 Information not available 07/01/2022 How Much Tobacco Do You Smoke? No Was 2ppd MIGRATION.24389 40748 Information not available 07/01/2022 What Types Of Sporting Activities Do You Participate In? None MIGRATION.60263 23398 Information not available 07/01/2022 Do You Feel Stressed (tense, Restless, Nervous, Or Anxious, Or Unable To Sleep At Night)? [id number] MIGRATION.35253 69821 Information not available 07/01/2022 Do You Use Any Illicit Or Recreational Drugs? No MIGRATION.84768 75713 Information not available 07/01/2022 Do You Use Sunscreen Routinely? No Information not available 08/14/2022 Has Tobacco Cessation Counseling Been Provided? No MIGRATION.61913 17062 Information not available 07/01/2022 Have You Recently Traveled Abroad? No MIGRATION.73956 53786 Information not available 07/01/2022 Do You Have Any Dietary Restrictions? No MIGRATION.75594 27520 Information not available 07/01/2022 Do You Or Have You Ever Used Any Other Forms Of Tobacco Or Nicotine? No MIGRATION.76544 59844 Information not available 07/01/2022 Sex: Female Functional Status Question Answer Note LastModified by Organizat ion Details LastModified Time Do you have difficulty walking or climbing stairs? No MIGRATION.738360 1850 Information not available 07/01/2022 Do you have transportation difficulties? No MIGRATION.322690 6852 Information not available 07/01/2022 Are you able to walk? YESWOREST MIGRATION.968584 4159 Information not available 07/01/2022 Do you have difficulty doing errands alone? No MIGRATION.443617 0172 Information not available 07/01/2022 Are you able to care for yourself? Yes MIGRATION.198883 5814 Information not available 07/01/2022 Do you have difficulty dressing or bathing? No MIGRATION.590915 5519 Information not available 07/01/2022 What is your exercise level? None stays active Information not available 08/14/2022 Mental Status Question Answer Note LastModified by Organizat ion Details LastModified Time Do you have difficulty concentrating, remembering or making decisions? No MIGRATION.031161130 6 Information not available 07/01/2022 Family History Relationship Description Onset Age of this Age Resolved Age Notes LastModified by Organization Details LastModified Time Mother Colostomy MIGRATION.291 [id number] Not available 07/01/2022 04:42:20 Sister Family history of malignant neoplasm MIGRATION.143 [id number] Not available 07/01/2022 04:42:20 Sister COVID-19 deceas ed MIGRATION.968 [id number] Not available 07/01/2022 04:42:20 Son Family history of malignant neoplasm MIGRATION.438 [id number] Not available 07/01/2022 04:42:20 Notes:NO ENT Medical History Condition Response BLINDNESS N NERVE DISEASE N RHEUMATIC FEVER N BLADDER PROBLEMS N KIDNEY STONES N MRSA N OTHER # 1 N POLIO N LUNG DISEASE/DISORDER N RADIATION / CHEMOTHERAPY N COPD N Other # 2 N BLOOD DISEASES N SURGERY N EAR OR HEARING PROBLEMS N MUMPS N BOWEL PROBLEMS N DEPRESSION (INCLUDING POST ) N STROKE/TIA Y ULCERS N BENIGN PROSTATIC HYPERPLASIA N MEASLES N MYOCARDIAL INFARCTION N OBESITY N GERD/NAUSEA N ANEURYSM N URINARY/BLADDER/KIDNEY PROBLEMS N CORONARY ARTERY DISEASE (CAD) N ADDICTION CONCERNS N ENDOMETRIOSIS N Impotence N USE OF BLOOD THINNERS N SKIN PROBLEMS N GASTROINTESTINAL DISORDER N PERIPHERAL VASCULAR DISEASE N MUSCLE,JOINT OR BONE PROBLEMS N GASTROINTESTINAL BLEEDING N BLOOD CLOTS N ASTHMA N CATARACTS N ERECTILE DYSFUNCTION N VARICOSITIES N GI PROBLEMS N Low Testosterone N INFERTILITY N AIDS/HIV N CHEMOTHERAPY / RADIATION N LIVER DISEASE N MALE HYPOGONADISM N HYPERTENSION Y Deficiency Y ANXIETY DISORDER N BLOOD TRANSFUSION N ANEMIA/BLOOD DISORDER N CHRONIC EAR INFECTIONS N BRONCHITIS N TUBERCULOSIS N GLAUCOMA N FOOT PROBLEM N DIVERTICULITIS N SLEEP APNEA N CHICKENPOX N INFECTIOUS DISEASE N HEART ARRHYTHMIA N PROSTATE N INSOMNIA N HIGH CHOLESTEROL / HYPERLIPIDEMIA Y HYPERTHYROIDISM N EYE PROBLEMS N NEUROLOGICAL PROBLEMS N EDEMA N CHRONIC PAIN SYNDROME N HYPOTHYROIDISM N CAROTID BLOCKAGE N CONSTIPATION N BACK / NECK PROBLEMS N HAVE YOU BEEN HOSPITALIZED OR SEEN IN [facility] ER IN THE PAST YEAR ? N ATHEROSCLEROSIS N BREAST PROBLEMS N DIALYSIS N ECZEMA N OSTEOPOROSIS N ARTHRITIS Y APPENDICITIS N DIABETES, TYPE Y BAD TEETH N ENT N HEARTBURN / REFLUX N AFIB N AUTISM SPECTRUM DISORDER (ASD) N HEPATITIS / LIVER DISEASE N GOUT N SLEEP DISORDER N ALZHEIMER'S DISEASE N Brain Problems N HERPES N DEMENTIA N HEADACHES/MIGRAINES N SEIZURES/EPILEPSY N VASCULAR DISEASE N PACEMAKER N Blood Disorder N DIZZINESS N HEART DISEASE/HEART PROBLEMS N KIDNEY DISEASE N MULTIPLE SCLEROSIS N CARDIAC ARRHYTHMIA N CANCER: SPECIFY N ATRIAL FIBRILLATION N Gall Stones N PULMONARY EMBOLISM N AUTOIMMUNE DISEASE N Gynecological History Statement/Question Response Date of Last Pap Date of Last Mammogram 05/09/2020 Date of Last Colonoscopy 12/15/2018 Most Recent Bone Density 05/09/2020 Obstetrics History GPAL:G 0 P 0 0 0 0 Immunizations Vaccine Type Date Status Note Provider Nam e and Address Organization Details Recorded Time Influenza, split virus, trivalent, preservative 3 completed Not Available [facility] 04/05/2023 07:43:34 zoster, unspecified formulation 0 completed Not Available [facility] 04/05/2023 07:43:33 pneumococcal polysaccharide PPV23 0 completed Not Available [facility] 04/05/2023 07:43:34 Influenza, high-dose, trivalent, PF 0 completed Not Available [facility] 04/05/2023 07:43:34 Tdap 9 completed Not Available [facility] 04/05/2023 07:43:34 Influenza, high-dose, trivalent, PF 9 completed Not Available [facility] 04/05/2023 07:43:34 Pneumococcal conjugate PCV 13 7 completed Not Available [facility] 04/05/2023 07:43:34 Influenza, high-dose, trivalent, PF 7 completed Not Available [facility] 04/05/2023 07:43:34 Influenza, high-dose, quadrivalent, PF 9 completed Not Available [facility] 04/05/2023 07:43:34 pneumococcal, unspecified formulation 4 completed Not Available [facility] 04/05/2023 07:43:34 Influenza, split virus, trivalent, preservative 3 completed Not Available [facility] 04/05/2023 07:43:34 Past Encounters Encounter ID Performer Location Encounter Start Date Encounter Closed Date Diagnosis/Indication Diagnosis SNOMED-CT Code Diagnosis ICD10 Code Diagnosis Note [id number] [facility] [address] [place], [place] [address]e., [address] [address] 08/19/2020 00:00:00 08/24/2020 21:06:00 [id number] [facility] [address] [address] 09/06/2020 00:00:00 09/22/2020 17:54:42 [id number] [facility] [address] [address] 11/27/2020 00:00:00 12/01/2020 10:20:57 [id number] [facility] [place] [address] [place] [address] 12/19/2020 00:00:00 12/19/2020 15:03:41 [id number] [facility] [place] [address] [facility] [address] [place] [address] 01/16/2021 00:00:00 01/16/2021 10:15:45 [id number] [facility] [address] [place], [place] [address]., [address] [address] 03/17/2021 00:00:00 03/29/2021 17:37:35 [id number] [facility] [address] [address] 04/29/2021 00:00:00 04/29/2021 09:46:31 [id number] [facility] [address] [address] 05/27/2021 00:00:00 05/27/2021 09:27:52 [id number] [facility] [address] [place] [address] Michaele., [address] [address] 06/09/2021 00:00:00 07/06/2021 20:54:16 [id number] [facility] [address] [place] [address] Michaele[address] [facility] 15 [place] [address] 07/04/2021 00:00:00 07/27/2021 17:49:16 [id number] [facility] [address] [place] [address] Michaele., [address] [address] 08/08/2021 00:00:00 08/23/2021 19:21:55 [id number] [facility] [place] [address] [place] [address] 08/19/2021 00:00:00 08/19/2021 14:36:35 [id number] [facility] [address] [place]., [address] [address] 09/05/2021 00:00:00 09/05/2021 22:19:44 [id number] [facility] [place] [address] [place] [address] 09/30/2021 00:00:00 09/30/2021 14:04:01 [id number] [facility] [place] [address] [place] [address] 10/28/2021 00:00:00 10/28/2021 13:46:53 [id number] [facility] [address] [place] [address] Michaele., [address] [address] 12/02/2021 00:00:00 01/10/2022 11:43:58 [id number] [facility] [place] [address] [place] [address] 12/30/2021 00:00:00 12/30/2021 10:38:57 [id number] [facility] [address] [address] 01/27/2022 00:00:00 01/27/2022 09:39:23 [id number] [facility] [address] [address] 02/10/2022 00:00:00 02/10/2022 09:25:31 [id number] [facility] [address] [address] 03/10/2022 00:00:00 03/10/2022 10:24:18 [id number] [facility] [place] [address] [address] 04/03/2022 00:00:00 04/03/2022 10:29:50 [id number] Kendrick Quintana MD [facility] [address] [place] [address] 07/16/2022 10:45:59 07/16/2022 12:01:06 Contusion of right hip region 0222667801 1162901 S70.01XD Pain in ri ght hip joint 3546495747 73003 M25.551 Trochanter ic bursitis of right hip 8961256929 13843 M70.61 [id number] Noel Ordaz MD [facility] [place] [address] [facility] [place] [address] 08/14/2022 13:46:37 08/14/2022 14:44:49 Adult health examination 332614188 Z00.00 Screening for disorder 527096906 Z13.9 Anxiety 32911364 F41.9 Hypercholesterolemia 136 00558 E78.00 Essential hypertension 90155266 I10 Pure hypercholesterolemia 356637706 E78.00 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 774128354 E11.9 [id number] Noel Ordaz MD [facility] [place] [address] [place] [facility] [address] [place] [address] 09/25/2022 11:15:07 09/25/2022 12:27:49 Diabetes mellitus 21438584 E11.9 Essential hypertension 27602780 I10 Nodule of lung 364087624 R91.1 Hypercholesterolemia 136 59764 E78.00 Anxiety 24918973 F41.9 [id number] Noel Ordaz MD [facility] Internal Med [facility] [address] [address] 10/14/2022 10:24:55 10/14/2022 11:20:28 Essential hypertension 16992813 I10 Hypercholesterolemia 136 72072 E78.00 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 022059427 E11.9 [id number] Noel Ordaz MD [facility] Internal Med [facility] [address] [facility] [address] [address] 11/26/2022 10:18:25 11/26/2022 12:06:32 Pure hypercholesterolemia 589277205 E78.00 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 263438563 E11.9 Essential hypertension 83690954 I10 [id number] Noel Ordaz MD [facility] Internal Med [facility] [address] [place] [address] Ave[address] [address] 02/01/2023 11:02:25 02/01/2023 12:42:17 Essential hypertension 19874477 I10 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 [place] [address] 01/05/2024 09:57:28 01/05/2024 11:17:17 Pain of left shoulder joint 5715188820 2271511 M25.512 Pain of left wrist 41437 88234 52981 M25.532 Pain of le ft knee joint 8275572254 95182 M25.460 [id number] Sylvia Cabrera NP [facility] [place] [address] [place] [address] 01/19/2024 09:52:28 01/19/2024 10:23:53 Pain of left shoulder joint 1913803112 8444351 M25.512 Pain of left wrist 69836 23914 15318 M25.532 Pain of le ft knee joint 6317143243 88844 M25.646 [id number] Christiano Loera MD [facility] [place] [address] [place] [address] 02/02/2024 10:29:59 02/02/2024 11:12:10 Pain of left shoulder joint 3685350930 4530805 M25.512 Closed intertrochanteric fracture 40204608 S72.141D Pain of left wrist 35630 74882 33010 M25.499 [id number] Christiano Loera MD [address] [address] 02/28/2024 11:00:37 02/28/2024 11:42:36 Pain of left shoulder joint 6071345081 4528799 M25.512 Pain of left wrist 70845 18913 28774 M25.718 [id number] Christiano Loera MD [address] [address] 04/10/2024 10:45:00 04/10/2024 12:36:06 Pain of left shoulder joint 1834987481 9973778 M25.512 Pain of left wrist 65904 86306 69530 M25.532 Health Concerns Section Related Observation LastModified by Organization Detai ls LastModified Time None Recorded Concern Status LastModified by Organization Details LastModified Time None Recorded Advance Directives Directive Y: Payers Encounter Date Sequence Insurance Name Policy Number Policy Soto Covered Member ID Soto Member ID Guarantor Name 01/05/2024 1 [facility] (MEDICARE REPLACEMENT/A DVANTAGE - HMO) [id number] Pinky Yao [id number] Pinky Yao 01/19/2024 1 [facility] (MEDICARE REPLACEMENT/A DVANTAGE - HMO) [id number] Pinky Sheth Weeks [id number] Pinky Sheth Weeks 02/02/2024 1 [facility] (MEDICARE REPLACEMENT/A DVANTAGE - HMO) [id number] Pinky Sheth Weeks [id number] Pinky Sheth Weeks 02/28/2024 1 [facility] (MEDICARE REPLACEMENT/A DVANTAGE - HMO) [id number] Pinky Sheth Weeks [id number] Pinky Sheth Weeks 04/10/2024 1 [facility] (MEDICARE REPLACEMENT/A DVANTAGE - HMO) [id number] Pinky Sheth Weeks [id number] Pinky Sheth Weeks OBGyn Episode No OBEpisode recorded.
--- OUTSIDE RECORDS SUMMARY | 2024-08-09 10:53 | XMS_ITS | CONTINUITY OF CARE DOCUMENT ---
Author Name annie, annie Address Unknown Organization [facility] Address [address] [place] [address] Phone [phone] Care Team Providers Care Electrical Electronics Technician Name Role Phone Carol ACOSTA, Gregorio Unavailable NOEL PITTS MD Unavailable NOEL PITTS MD Unavailable [phone] PROBLEMS Condition Status Date Provider Notes HYPERLIPIDEMIA-PMD MONITORIN G LIPID LEVELS active ? CHI RENAE NP CVA active Gregorio Medina MD ENCOUNTERS Date Type Provider Location Encounter Diag nosis - In-person encounter Office Visit Gregorio Medina MD [facility] CVA - In-person encounter Office Visit Donnell Forbes MD [facility] - In-person encounter Office Visit Donnell Forbes MD [facility] HYPERLIPIDEMIA-PMD MONITORING LIPID LEVELS VITAL SIGNS Date Observation Value Provider Body Mass Index (Ratio) 30.45 kg/m2 Leandro Medina MD blood pressure, cuff size regular Ja rret blood pressure, diastolic 70 mm[Hg] Ja rret blood pressure, systolic 133 mm[Hg] Brianna ret pulse rate 74 /min Aron respiratory rate E&M 12 /min Aron oxygen saturation, oximetry 97 % Aron height E&M 65 [in_i] Aron [facility] y weight E&M 183 [lb_av] Aron [facility] y blood pressure, diastolic, left arm 87 mm [Hg] Martita Sherwood blood pressure, systolic, left arm 145 mm [Hg] Martita Sherwood blood pressure, diastolic, right arm 78 m m[Hg] Martita Sherwood blood pressure, systolic, right arm 147 m m[Hg] Martita Sherwood blood pressure, diastolic 78 mm[Hg] Fe jhoan Sherwood blood pressure, systolic 147 mm[Hg] Fel icia Sherwood pulse rate 80 /min Martita Sherwood oxygen saturation, oximetry 96 % Martita Sherwood respiratory rate E&M 18 /min Martita Sherwood weight E&M 228 [lb_av] Martita Sherwood blood pressure, diastolic 67 mm[Hg] Ned Burgos RN blood pressure, systolic 103 mm[Hg] Bennie Burgos RN pulse rate 63 /min Bennie Burgos RN oxygen saturation, oximetry 96 % Bennie Burgos RN respiratory rate E&M 22 /min Bennie rose RN weight E&M 221 [lb_av] Bennie Burgos RN ALLERGIES No Known Drug Allergies HISTORY OF MEDICATION USE Medication Status Instructions Dates Provider Indications Com ments Zetia 10 mg tablet active TAKE 1 TABLET BY MOUTH ONCE A DAY Shanice Ventimiglia RECEPTION amlodipine 2.5 mg tablet active Shanice Ventimiglia RECEPTION atorvastatin 40 mg tablet active aspirin unspecified unspecified active CIPRO TABS completed 500 mg twice a day - Shanice Ventimiglia RECEPTION Lexapro 10 mg tablet completed 1 tablet once a day - Shanice Ventimiglia RECEPTION Lipitor 20 mg tablet completed 1 tablet once a day - Shanice Ventimiglia RECEPTION quinapril 40 mg tablet active Take 1 tablet by mouth once a day Shanice Rodriguez [facility] SOCIAL HISTORY Date Observation Value Provider drug use no Shanice knapp [facility] alcohol use no Shanice knapp [facility] smoking status Former smoker Shanice rodarte [facility] social history reviewed E&M reviewed Donnell Forbes MD social history E&M Marital Statu s: Single L [place] with family/friends E thnicity: [employer] RENAE [employer] drug use none 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 Mood and affect are normal. Donnell Forbes MD assessment of judgme nt and insight E&M Alert and oriented to time, place and person. Mood and affect are normal. Bennie Burgos RN INSURANCE PROVIDERS Payer name Policy type / Coverage type Lizett red alliance party ID [employer] MEDICARE ADVANTAGE HMO-POS HMO [id number] ADVANCE DIRECTIVES Name Date DISCUSSED - NO DECISION MADE TREATMENT PLAN Date Name Performer [id number],C,l ifestyl modification encouraged. Shanice Rodriguez [facility] [id number],C,w ith residual rt sided weakness. Negative carotid study on recent hospital stay Shanice Rodriguez [facility] [id number],C,B P 133/70 today B vi controlled E ncouraged home monitoring for goal BP <130/80 H er updated medication list for this problem includes: Quinapril 40 Mg Tablet (Quinapril) ..... Take 1 tablet by mouth once a day Amlodipine 2.5 Mg Tablet (Amlodipine) Aspirin Unspecified Unspecified (Aspirin) Shaniceomar Rodriguez [facility] [id number],C,A typical chest pain has been ongoing for over a year and occurs weekly. She was hospitalized for HTN urgency and had elevated troponin. Echo in hospital showed EF of 65% with mild LV, mod mitral calcification and aortic calcification. She had stress test that showed fixed defect. At ths time medical management. [facility] [id number],C,W ill add zetia as LDL 119 in hospital. Will do f/u lipid panel in 3 months T he following medications were removed from the medication list: Lipitor 20 Mg Tablet (Atorvastatin) ..... 1 tablet once a day Her updated medication list for this problem includes: Zetia 10 Mg Tablet (Ezetimibe) ..... Take 1 tablet by mouth once a day Atorvastatin 40 Mg Tablet (Atorvastatin) Orders: 9 9214 MOD 30-39min (CPT-92945) L IPID PANEL (9944) [facility] Cardiology:lifestyl modification encouraged. [facility] Cardiology:with resi dual rt sided weakness. Negative carotid study on recent hospital stay [facility] Cardiology:BP 133/70 today B vi controlled E ncouraged home monitoring for goal BP <130/80 H er updated medication list for this problem includes: Quinapril 40 Mg Tablet (Quinapril) ..... Take 1 tablet by mouth once a day Amlodipine 2.5 Mg Tablet (Amlodipine) Aspirin Unspecified Unspecified (Aspirin) [facility] Cardiology:Atypical chest pain has been ongoing for over a year and occurs weekly. She was hospitalized for HTN urgency and had elevated troponin. Echo in hospital showed EF of 65% with mild LV, mod mitral calcification and aortic calcification. She had stress test that showed fixed defect. At ths time medical management. [facility] Cardiology:Will add zetia as LDL 119 in hospital. Will do f/u lipid panel in 3 months T he following medications were removed from the medication list: Lipitor 20 Mg Tablet (Atorvastatin) ..... 1 tablet once a day Her updated medication list for this problem includes: Zetia 10 Mg Tablet (Ezetimibe) ..... Take 1 tablet by mouth once a day Atorvastatin 40 Mg Tablet (Atorvastatin) Orders: 9 9214 MOD 30-39min (CPT-11377) L IPID PANEL (9810) Shanice Rodriguez RECEPTION ROUTINE F/U WITH ECH O: H er updated medication list for this problem includes: Quinapril Hcl 40 Mg Tabs (Quinapril hcl) ..... Take 1 tablet by mouth every day Donnell Forbes MD ROUTINE F/U WITH ECH O: H er updated medication list for this problem includes: Lipitor 20 Mg Tabs (Atorvastatin calcium) ..... One tab. daily Donnell Forbes MD ROUTINE F/U WITH ECH O: H er updated medication list for this problem includes: Quinapril Hcl 40 Mg Tabs (Quinapril hcl) ..... Take 1 tablet by mouth every day Donnell Forbes MD ROUTINE F/U WITH ECHO Donnell griffin MD ROUTINE F/U WITH ECH O: H er updated medication list for this problem includes: Quinapril Hcl 40 Mg Tabs (Quinapril hcl) ..... Take 1 tablet by mouth every day Orders: Ngoc KG (CPT-30669) Donnell Forbes MD office visit: B P today: Orders: Jairon omplete Echo (CPT-[id number]) S chedule Followup (*) CHI RENAE NP office visit: H er updated medication list for this problem includes: Quinapril Hcl 40 Mg Tabs (Quinapril hcl) ..... Take 1 tablet by mouth every day BP today: 103 Prior BP: / () Nuclear Stress Findings: NORMAL EF 50% (12/31/2006) E chocardiogram: normal: EF 60% (12/31/2006) Orders: C omplete Echo (CPT-95204) S chedule Followup (*) CHI GINNYTRENTON [employer] office visit: H er updated medication list for this problem includes: Quinapril Hcl 40 Mg Tabs (Quinapril hcl) ..... Take 1 tablet by mouth every day BP today: Prior BP: / () Nuclear Stress Findings: NORMAL EF 50% (12/31/2006) E chocardiogram: normal: EF 60% (12/31/2006) Orders: C omplete Echo (CPT-[id number]) S chedule Followup (*) CHI GINNYTRENTON [employer] office visit: H er updated medication list for this problem includes: Quinapril Hcl 40 Mg Tabs (Quinapril hcl) ..... 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 Take 1 tablet by mouth every day BP today: Prior BP: / () Nuclear Stress Findings: NORMAL EF 50% (12/31/2006) E chocardiogram: normal: EF 60% (12/31/2006) CHI GINNYTRENTON [employer] ENGINEER office visit: H er updated medication list for this problem includes: Quinapril Hcl 40 Mg Tabs (Quinapril hcl) ..... 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 Take 1 tablet by mouth every day BP today: 103/67 Prior BP: / () Nuclear Stress Findings: NORMAL EF 50% (12/31/2006) E chocardiogram: normal: EF 60% (12/31/2006) BP today: 103/67 CHI RENAE [employer] ENG[employer] Date Name LIPID PANEL Stress Regadenoson Complete Echo Complete Echo HISTORY OF PROCEDURES Procedure Date Procedure Name Provider Procedure Notes S tatus Mobile Cardiac Telemetry - Tech Shaan Montemayor DO completed Mobile Cardiac Telemetry - Prof Shaan Montemayor DO completed EKG Donnell Forbes MD completed Schedule Followup Donnell Forbes MD F/U 1 YEAR co mpleted
--- OUTSIDE RECORDS SUMMARY | 2024-08-09 10:53 | XMS_ITS | Clinical Summary ---
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 Active ezetimibe (ZETIA) 10 mg tablet Take 1 tablet (10 mg total) by mouth daily Active amLODIPine (NORVASC) 5 mg tablet Take 1 tablet (5 mg total) by mouth daily 90 tablet 3 5 Active aspirin 81 mg enteric coated tablet Take 1 tablet (81 mg total) by mouth daily for 17 days 5 Active clopidogreL (PLAVIX) 75 mg tablet Take 1 tablet (75 mg total) by mouth daily 30 tablet 5 05/26/19 26 Active cholecalciferol (VITAMIN D-3) 25 mcg (1,000 unit) tablet Take 1 tablet (1,000 Units total) by mouth daily 30 tablet 11 5 05/25/19 26 Active atorvastatin (LIPITOR) 80 mg tablet Take 1 tablet (80 mg total) by mouth daily 30 tablet 5 5 11/22/19 25 Active metFORMIN (GLUCOPHAGE) 500 mg tablet Take 1 tablet (500 mg total) by mouth 2 (two) times a day with meals 60 tablet 11 5 05/25/19 26 Active Active Problems Problem Noted Date Diagnosed Date Infarction of left basal ganglia 05/22/2024 Acute stroke due to ischemia 05/22/2024 Vitamin D deficiency 05/22/2024 Overview (05/22/2024): Vitamin D 25-OH 9.0 on 05/22/24 Stroke-like symptoms 05/21/2024 Multinodular goiter 03/09/2023 Assessment & Plan (03/09/2023 12:52 PM DIRECTOR OF ANCILLARY SERVICES): Differential diagnosis would include benign nodule (macrofollicular or adenomatoid/hyperplastic nodules, colloid adenomas, nodular goiter, and Delfina's thyroiditis) vs thyroid carcinoma ( follicular , papillary ) FNA indicated and scheduled If benign, will follow up with serial ultrasound Otherwise, will need referral to surgery 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 There was no atrial fibrillation noted, carotid stenosis of significance, or akinetic segment or mural thrombi to necessitate consideration of anticoagulation over antiplatelet therapy. As such she will continue on aspirin for cerebrovascular prophylaxis in addition to her diabetic, cholesterol, and hypertension treatment. I will see her back in the office from a general neurological standpoint on an as-needed basis. Assessment & Plan (08/26/2020 2:08 PM CDT): Patient has a recent history of development of right hemibody sensory disturbance along with a temporary right lower extremity incoordination as a sequelae to a left ischemic thalamic infarction. She has known cerebrovascular risk factors of hypertension and diabetes. She has been placed on aspirin therapy in addition to atorvastatin lisinopril and Ozempic at this time. She has had a transthoracic echocardiogram and carotid ultrasound results of which are unknown but will be retrieved for review. In addition she has an ongoing histology manager to screen for atrial fibrillation which should be completed later this week. She will continue on aspirin therapy at this time pending completion of her outstanding tests. I will see her back thereafter. Encounters Date Type Department Care Team Description 07/10/2024 9:00 AM CDT Office Visit 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) 05/26/2024 Orders Only [facility] [phone] Unknown, Notinfile 05/21/2024 1:14 PM DIRECTOR OF ANCILLARY SERVICES - 05/25/2024 3:41 PM DIRECTOR OF ANCILLARY SERVICES [facility] Med Surg [facility] [place] [address] Zay Toledo MD Nyquist, MD Drake Ball, August Lebron MD Infarction of left basal ganglia (HCC) (Primary Dx); 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) Discharge Disposition: Discharge to an IP Rehab facility from Last 3 Months Immunizations Immunization Administration Dates Next Due Influenza, Trivalent, High D ose, Split, Preservative Free, Intramuscular 05/25/2024(Deferred: Patient Refused) Surgical History Surgery Date Site/Laterality Comments CHOLECYSTECTOMY OPEN 05/03/1980 - 05/02/1981 TONSILLECTOMY 05/03/1968 - 05/02/1969 LEG SURGERY Right LUMBAR DISCECTOMY Medical History Medical History Date Comments Hypercholesteremia 08/26/2020 Diabetes 1.5, managed as type 2 (HCC) Hypertension Family History Medical History Relation Name Comments No Known Problems Father No Known Problems Mother Lung cancer Sister Relation Name Status Comments Father Mother Sister Social History Tobacco Use Types Packs/Day Years Used Date Smoking Tobacco: Former Cigarettes Smokeless Tobacco: Never Tobacco Cessation:Counseling Given: Not Answered [facility] Utilities Answer Date Recorded In the past 12 months has [employer] electric, gas, oil, or water company threatened to shut off services in your home? No 05/22/2024 Social Connection and Isolat ion Panel [NHANES] Answer Date Recorded In a typical week, how many times do you talk on the phone with family, friends, or neighbors? More than three times a week 05/22/2024 How often do you get togethe r with friends or relatives? Three times a week 05/22/2024 How often do you attend chur ch or zoroastrian services? Never 05/22/2024 Do you belong to any clubs o r organizations such as confucianist groups, unions, fraternal or athletic groups, or school groups? No 05/22/2024 How often do you attend meet ings of the clubs or organizations you belong to? Never 05/22/2024 Are you , , di vorced, , never , or living with a partner? 05/22/2024 AUDIT-C Answer Date Recorded Q1: How often do you have a drink containing alcohol? Never 05/21/2024 Q2: How many drinks containi ng alcohol do you have on a typical day when you are drinking? Patient does not drink Q3: How often do you have si x or more drinks on one occasion? Never 05/21/2024 Overall Financial Resource Strain (CARDIA) Answe r Date Recorded How hard is it for you to pa y for the very basics like food, housing, medical care, and heating? Not hard at all 05/22/2024 PHQ-2 Answer Date Recorded PHQ-2 Total Score (If total score is 3 or more points, staff should administer the PHQ-9) 0 03/09/2023 Hunger Vital Sign Answer Date Recorded Within the past 12 months, y ou worried that your food would run out before you got the money to buy more. Never true 05/22/19 Within the past 12 months, t he food you bought just didn't last and you didn't have money to get more. Never true 05/22/2024 PRAPARE - Transportation Answer Date Re corded In the past 12 months, has l ack of transportation kept you from medical appointments or from getting medications? No 05/04 In the past 12 months, has l ack of transportation kept you from meetings, work, or from getting things needed for daily living? No 05/22/2024 Housing Stability Vital Sign Answer Reyes e Recorded In the last 12 months, was t here a time when you were not able to pay the mortgage or rent on time? No 05/22/2024 In the past 12 months, how m any times have you moved where you were living? 0 05/22/2024 At any time in the past 12 m [facility], were you homeless or living in a [facility] (including now)? No 05/22/2024 Personal Safety Answer Date Recorded Have you ever been in or are you currently in a harmful physical or emotional relationship or is someone making you feel afraid or unsafe? Denies 05/21/2024 Comments No Sex and Gender Information Value Date Recorded Sex Assigned at Not on file Legal Sex Female 8:13 PM DIRECTOR OF ANCILLARY SERVICES Gender Identity Not on file Sexual Orientation Not on file Obstetrics History Last Filed Vital Signs Vital Sign Reading Time Taken Comments Blood Pressure 120/60 07/10/2024 9:14 AM CDT Pulse 91 07/10/2024 9:14 AM CDT Temperature 36.3 C (97.3 F) 05/25/2024 11:34 AM DIRECTOR OF ANCILLARY SERVICES Respiratory Rate 19 07/10/2024 9:14 AM CDT Oxygen Saturation 97% 07/10/2024 9:14 AM CDT Inhaled Oxygen Concentration - - Weight 74.8 kg (165 lb) 07/10/2024 9:14 AM CDT Height 165.1 cm (5' 5 ) 07/10/2024 9:14 AM CDT Body Mass Index 27.46 07/10/2024 9:14 AM CDT Plan of Treatment Health Maintenance Due Date Last Done Comments Albumin Creatinine Ratio, Urine 1950 Breast Cancer Screening-Mammogram 1950 Colon Cancer Screening-Colonoscopy 1950 Hepatitis C Screening 1950 Osteoporosis Screening-Bone Density Scan 1950 Dilated Eye Exam 1950 Foot Exam 1950 Hepatitis B Screening 1968 Well Visit 65+ 08/31/2015 Zoster Vaccine (2 of 2) 04/21/2020 02/25/2020, 02/24 Depression Screening 03/09/2024 03/09/2023 Hemoglobin A1C 11/18/2024 05/21/2024 Influenza Vaccine (Season Ended) 2025 02/25/2020, 02/25/2020, 03/08/2019, Additional history exists Lipid Panel 05/21/2025 05/21/2024 Fall Risk Assessment 05/25/2025 05/25/2024, 03/09/20 23 eGFR 05/29/2025 05/29/2024, 05/04, 05/25/2024, Additional history exists DTaP/Tdap/Td Vaccine (2 - Td or Tdap) 03/17/2029 03/17/2019 Pneumococcal vaccine 65+ Completed 020, 06/01/2016, 11/27/2013 Procedures Procedure Name Priority Date/Time Associated Diagnosis Comments EGFR Routine 05/29/2024 6:03 AM DIRECTOR OF ANCILLARY SERVICES BASIC METABOLIC PANEL Routine 05/29/2024 6:03 AM DIRECTOR OF ANCILLARY SERVICES DIFFERENTIAL AUTO Routine 05/29/2024 6:0 3 AM DIRECTOR OF ANCILLARY SERVICES CBC WITH AUTO DIFFERENTIAL Routine 05/29/2024 6:03 AM DIRECTOR OF ANCILLARY SERVICES VITAMIN D 25 HYDROXY Routine 05/26/2024 6:13 AM DIRECTOR OF ANCILLARY SERVICES PREALBUMIN Routine 05/26/2024 6:13 AM DIRECTOR OF ANCILLARY SERVICES EGFR Routine 05/26/2024 6:13 AM DIRECTOR OF ANCILLARY SERVICES VITAMIN B12 Routine 05/26/2024 6:13 AM DIRECTOR OF ANCILLARY SERVICES COMPREHENSIVE METABOLIC PANEL Routine 05/26/2024 6:13 AM DIRECTOR OF ANCILLARY SERVICES MAGNESIUM Routine 05/26/2024 6:13 AM DIRECTOR OF ANCILLARY SERVICES PHOSPHORUS Routine 05/26/2024 6:13 AM DIRECTOR OF ANCILLARY SERVICES POCT GLUCOSE DEVICE Routine 05/25/2024 1 2:22 PM DIRECTOR OF ANCILLARY SERVICES POCT GLUCOSE DEVICE Routine 05/25/2024 7 :46 AM DIRECTOR OF ANCILLARY SERVICES EGFR Routine 05/25/2024 6:01 AM DIRECTOR OF ANCILLARY SERVICES DIFFERENTIAL AUTO Routine 05/25/2024 6:0 1 AM DIRECTOR OF ANCILLARY SERVICES CBC WITH AUTO DIFFERENTIAL Routine 05/25/2024 6:01 AM DIRECTOR OF ANCILLARY SERVICES BASIC METABOLIC PANEL Routine 05/25/2024 6:01 AM DIRECTOR OF ANCILLARY SERVICES POCT GLUCOSE DEVICE Routine 05/24/2024 8 :32 PM DIRECTOR OF ANCILLARY SERVICES POCT GLUCOSE DEVICE Routine 05/24/2024 5 :18 PM DIRECTOR OF ANCILLARY SERVICES POCT GLUCOSE DEVICE Routine 05/24/2024 1 1:59 AM DIRECTOR OF ANCILLARY SERVICES EGFR Routine 05/24/2024 7:58 AM DIRECTOR OF ANCILLARY SERVICES DIFFERENTIAL AUTO Routine 05/24/2024 7:5 8 AM DIRECTOR OF ANCILLARY SERVICES CBC WITH AUTO DIFFERENTIAL Routine 05/24/2024 7:58 AM DIRECTOR OF ANCILLARY SERVICES BASIC METABOLIC PANEL Routine 05/24/2024 7:58 AM DIRECTOR OF ANCILLARY SERVICES POCT GLUCOSE DEVICE Routine 05/24/2024 7 :42 AM DIRECTOR OF ANCILLARY SERVICES POCT GLUCOSE DEVICE Routine 05/23/2024 9 :07 PM DIRECTOR OF ANCILLARY SERVICES POCT GLUCOSE DEVICE Routine 05/23/2024 5 :55 PM DIRECTOR OF ANCILLARY SERVICES POCT GLUCOSE DEVICE Routine 05/23/2024 1 1:06 AM DIRECTOR OF ANCILLARY SERVICES POCT GLUCOSE DEVICE Routine 05/23/2024 8 :02 AM DIRECTOR OF ANCILLARY SERVICES EGFR Routine 05/23/2024 5:34 AM DIRECTOR OF ANCILLARY SERVICES DIFFERENTIAL AUTO Routine 05/23/2024 5:3 4 AM DIRECTOR OF ANCILLARY SERVICES CBC WITH AUTO DIFFERENTIAL Routine 05/23/2024 5:34 AM DIRECTOR OF ANCILLARY SERVICES BASIC METABOLIC PANEL Routine 05/23/2024 5:34 AM DIRECTOR OF ANCILLARY SERVICES POCT GLUCOSE DEVICE Routine 05/22/2024 9 :13 PM DIRECTOR OF ANCILLARY SERVICES CTA HEAD NECK W WO CONTRAST IP Routine 05/22/2024 8:04 PM DIRECTOR OF ANCILLARY SERVICES POCT GLUCOSE DEVICE Routine 05/22/2024 6 :14 PM DIRECTOR OF ANCILLARY SERVICES TRANSTHORACIC ECHO (TTE) COMPLETE W DOPPLER/CF W CONTRAST W BUBBLE Routine 05/22/2024 2:20 PM DIRECTOR OF ANCILLARY SERVICES POCT GLUCOSE DEVICE Routine 05/22/2024 1 2:48 PM DIRECTOR OF ANCILLARY SERVICES ECG 12-LEAD Routine 05/22/2024 10:35 AM DIRECTOR OF ANCILLARY SERVICES US CAROTIDS DUPLEX BILATERAL IP Routine 05/22/2024 9:28 AM DIRECTOR OF ANCILLARY SERVICES POCT GLUCOSE DEVICE Routine 05/22/2024 8 :56 AM DIRECTOR OF ANCILLARY SERVICES VITAMIN D 25 HYDROXY Timed 05/22/2024 8:03 AM DIRECTOR OF ANCILLARY SERVICES FOLATE Timed 05/22/2024 8:03 AM DIRECTOR OF ANCILLARY SERVICES IRON PROFILE W/ IBC Timed 05/22/2024 8 :03 AM DIRECTOR OF ANCILLARY SERVICES CRP (ACUTE PHASE) Routine 05/22/2024 5:5 2 AM DIRECTOR OF ANCILLARY SERVICES MAGNESIUM Routine 05/22/2024 5:52 AM DIRECTOR OF ANCILLARY SERVICES FERRITIN Routine 05/22/2024 5:52 AM DIRECTOR OF ANCILLARY SERVICES EGFR Routine 05/22/2024 5:52 AM DIRECTOR OF ANCILLARY SERVICES DIFFERENTIAL AUTO Routine 05/22/2024 5:5 2 AM DIRECTOR OF ANCILLARY SERVICES CBC WITH AUTO DIFFERENTIAL Routine 05/22/2024 5:52 AM DIRECTOR OF ANCILLARY SERVICES BASIC METABOLIC PANEL Routine 05/22/2024 5:52 AM DIRECTOR OF ANCILLARY SERVICES POCT GLUCOSE DEVICE Routine 05/21/2024 7 :39 PM DIRECTOR OF ANCILLARY SERVICES MRI BRAIN WO CONTRAST IP Routine 05/21/2024 6:34 PM DIRECTOR OF ANCILLARY SERVICES CT BODY OUTSIDE REFERENCE Routine 05/21/2024 4:52 PM DIRECTOR OF ANCILLARY SERVICES CT BODY OUTSIDE REFERENCE Routine 05/21/2024 4:46 PM DIRECTOR OF ANCILLARY SERVICES POCT GLUCOSE DEVICE Routine 05/21/2024 4 :31 PM DIRECTOR OF ANCILLARY SERVICES EGFR STAT 05/21/2024 3:03 PM DIRECTOR OF ANCILLARY SERVICES DIFFERENTIAL AUTO STAT 05/21/2024 3:0 3 PM DIRECTOR OF ANCILLARY SERVICES THYROID FUNCTION CASCADE Routine 05/21/2024 3:03 PM DIRECTOR OF ANCILLARY SERVICES HEMOGLOBIN A1C STAT 05/21/2024 3:03 PM DIRECTOR OF ANCILLARY SERVICES LIPID PANEL STAT 05/21/2024 3:03 PM DIRECTOR OF ANCILLARY SERVICES BASIC METABOLIC PANEL STAT 05/21/2024 3:03 PM DIRECTOR OF ANCILLARY SERVICES CBC WITH AUTO DIFFERENTIAL STAT 05/21/2024 3:03 PM DIRECTOR OF ANCILLARY SERVICES CT BODY OUTSIDE REFERENCE Routine 05/20/2024 12:00 AM DIRECTOR OF ANCILLARY SERVICES from Last 3 Months Results * eGFR (05/29/2024 6:03 AM DIRECTOR OF ANCILLARY SERVICES) Pathologist [facility] eGFR 62 >=60 mL/min/1. 73 m2 JARED PÉREZ Comment: Interpretive Data Reference Interval Normal >/= 90 mL/min/1.73m2 Mildly decreased* 60 - 89 mL/min/1.73m2 Mildly to moderately decreased 45 - 59 mL/min/1.73m2 Moderately to severely decreased 30 - 44 mL/min/1.73m2 Severely decreased 15 - 29 mL/min/1.73m2 Kidney Failure < 15 mL/min/1.73m2 *Relative to young adult level Estimated glomerular filtration rate is determined by the 2020 CKD-EPI equation recommended by the National Kidney Foundation (A Unifying Approach to GFR Estimation: Recommendations of the NKF-ASK Task Force on Reassessing the Inclusion of Race in Diagnosing Kidney Disease, JASN 2020). The CKD-EPI equation should not be used for patients with unstable renal function and has not been validated in children and those over 70. Current interpretive data was last reviewed 2021. Testing performed by: [address] [address] Blood 05/29/2024 6:03 AM DIRECTOR OF ANCILLARY SERVICES 05/29/2024 8:14 AM DIRECTOR OF ANCILLARY SERVICES us Notinfile Unknown LAB BLOOD ORDERABLES Final Res ult JARED [address] [facility] Department [place] [address] * Differential, auto (05/29/2024 6:03 AM DIRECTOR OF ANCILLARY SERVICES) Neutrophil abs 5.4 1.5 - 6.5 K/cumm JARED PÉREZ Comment:Testing performed by : [address] [address] Imm gran abs 0.0 0.0 - 0.1 K/cumm JARED PÉREZ Comment:Testing performed by : [address] [address] Lymphocyte abs 1.6 0.8 - 3.3 K/cumm JARED PÉREZ Comment:Testing performed by : [address] [address] Monocyte abs 0.8 0.2 - 0.8 K/cumm JARED PÉREZ Comment:Testing performed by : [address] [address] Eosinophil abs 0.1 0.0 - 0.5 K/cumm JARED Comment:Testing performed by : [address] [address] Basophil abs 0.1 0.0 - 0.1 K/cumm JARED Comment:Testing performed by : [address] [address] Neutrophil pct 67.6 % [facility] Comment: Interpretive Data Percent cell count reference ranges are not reported, since discordance with absolute values may lead to misinterpretation of CBC data. Current Interpretive Data was last revised on 2017. Testing performed by: [address] [address] Imm gran pct 0.4 % [facility] Comment: Interpretive Data Percent cell count reference ranges are not reported, since discordance with absolute values may lead to misinterpretation of CBC data. Current Interpretive Data was last revised on 2017. Testing performed by: [address] [address] Lymphocyte pct 19.4 % [facility] Comment: Interpretive Data Percent cell count reference ranges are not reported, since discordance with absolute values may lead to misinterpretation of CBC data. Current Interpretive Data was last revised on 2017. Testing performed by: [address] [address] Monocyte pct 9.4 % [facility] Comment: Interpretive Data Percent cell count reference ranges are not reported, since discordance with absolute values may lead to misinterpretation of CBC data. Current Interpretive Data was last revised on 2017. Testing performed by: [address] [address] Eosinophil pct 1.8 % [facility] Comment: Interpretive Data Percent cell count reference ranges are not reported, since discordance with absolute values may lead to misinterpretation of CBC data. Current Interpretive Data was last revised on 2017. Testing performed by: [address] [address] Basophil pct 1.4 % [facility] Comment: Interpretive Data Percent cell count reference ranges are not reported, since discordance with absolute values may lead to misinterpretation of CBC data. Current Interpretive Data was last revised on 2017. Testing performed by: [address] [address] Blood 05/29/2024 6:03 AM DIRECTOR OF ANCILLARY SERVICES 05/29/2024 8:14 AM DIRECTOR OF ANCILLARY SERVICES us Notinfile Unknown LAB BLOOD ORDERABLES Final Res ult JARED PÉREZ [address] [facility] Department [place] [address] * (ABNORMAL) CBC with auto differential (05/29/2024 6:03 AM DIRECTOR OF ANCILLARY SERVICES) WBC 8.0 3.8 - 9.9 K/cumm JARED PÉREZ Comment:Testing performed by : [address] [address] Hgb 11.6(L) 11.9 - 15.5 g/dL JARED Comment:Testing performed by : [address] [address] Hct 36.8 35.6 - 45.5 % JARED Comment:Testing performed by : [address] [address] Plt 311 150 - 400 K/cumm JARED Comment:Testing performed by : [address] [address] MPV 9.6 9.1 - 12.3 fL JRAED Comment:Testing performed by : [address] [address] RBC 4.75 3.90 - 5.20 M/cumm JARED PÉREZ Comment:Testing performed by : [address] [address] MCV 77.5(L) 81.3 - 96.4 fL JARED Comment:Testing performed by : [address] [address] MCH 24.4(L) 27.1 - 33.3 pg JARED PÉREZ Comment:Testing performed by : [address] [address] MCHC 31.5(L) 32.3 - 35.7 g/dL JARED Comment:Testing performed by : [address] [address] RDW CV 15.6(H) 11.1 - 14.9 % JARED Comment:Testing performed by : [address] [address] RDW SD 42.9 35.7 - 48.1 fL JARED PÉREZ Comment:Testing performed by : [address] [address] NRBC abs 0.00 0.00 - 0.01 K/cumm JARED Comment:Testing performed by : [address] [address] Blood 05/29/2024 6:03 AM DIRECTOR OF ANCILLARY SERVICES 05/29/2024 8:14 AM DIRECTOR OF ANCILLARY SERVICES us Notinfile Unknown LAB BLOOD ORDERABLES Final Res ult JARED [address] [facility] Department [place] [address] * (ABNORMAL) Basic metabolic panel (05/29/2024 6:03 AM DIRECTOR OF ANCILLARY SERVICES) Sodium 138 135 - 145 mmol/L JARED PÉREZ Comment:Testing performed by : [address], [address] Potassium, pl 4.2 3.3 - 4.9 mmol/L JARED Comment:Testing performed by : [address] [address] Chloride 108 97 - 110 mmol/L JARED Comment:Testing performed by : [address] [address] CO2 20(L) 22 - 32 mmol/L JARED Comment:Testing performed by : [address], [address] Anion gap 10 2 - 15 mmol/L JARED Comment:Testing performed by : [address] [address] BUN 13 6 - 25 mg/dL JARED Comment:Testing performed by : [address], [address] Creatinine 0.96 0.60 - 1.10 mg/dL JARED PÉREZ Comment:Testing performed by : [address] [address] Glucose 91 70 - 199 mg/dL JARED PÉREZ Comment: Interpretive Data Fasting glucose >/= 126 mg/dl is diagnostic for diabetes. Fasting is defined as no caloric intake for at least 8 hours. Fasting glucose between 100 mg/dl to 125 mg/dl is diagnostic of prediabetes. In a patient with classic symptoms of hyperglycemia or hyperglycemic crisis, a random glucose >/= 200 mg/dl is diagnostic for diabetes. In the absence of unequivocal hyperglycemia, results should be confirmed by repeat testing. The classification and Diagnosis of Diabetes Diabetes Care 202; 46: S19-S40. Current interpretive data was last revised 2022. Testing performed by: [address] [address] Calcium 10.0 8.5 - 10.3 mg/dL JARED Comment:Testing performed by : [address] [address] Blood 05/29/2024 6:03 AM DIRECTOR OF ANCILLARY SERVICES 05/29/2024 8:14 AM DIRECTOR OF ANCILLARY SERVICES us Notinfile Unknown LAB BLOOD ORDERABLES Final Res ult JARED [address] [facility] Department of Laboratories [place], [place] [id number] * eGFR (05/26/2024 6:13 AM DIRECTOR OF ANCILLARY SERVICES) eGFR 78 >=60 mL/min/1. 73 m2 JARED PÉREZ Comment: Interpretive Data Reference Interval Normal >/= 90 mL/min/1.73m2 Mildly decreased* 60 - 89 mL/min/1.73m2 Mildly to moderately decreased 45 - 59 mL/min/1.73m2 Moderately to severely decreased 30 - 44 mL/min/1.73m2 Severely decreased 15 - 29 mL/min/1.73m2 Kidney Failure < 15 mL/min/1.73m2 *Relative to young adult level Estimated glomerular filtration rate is determined by the 2020 CKD-EPI equation recommended by the National Kidney Foundation (A Unifying Approach to GFR Estimation: Recommendations of the NKF-ASK Task Force on Reassessing the Inclusion of Race in Diagnosing Kidney Disease, JASN 202). The CKD-EPI equation should not be used for patients with unstable renal function and has not been validated in children and those over 70. Current interpretive data was last reviewed 2021. Testing performed by: [facility], [address] [place] [address]., [address] Blood 05/26/2024 6:13 AM DIRECTOR OF ANCILLARY SERVICES 05/26/2024 8:39 AM DIRECTOR OF ANCILLARY SERVICES us Notinfile Unknown LAB BLOOD ORDERABLES Final Res ult Performing Organization Address [facility] Co de Phone Number [address] [employer] [address] * (ABNORMAL) Vitamin D 25 hydroxy (05/26/2024 6:13 AM DIRECTOR OF ANCILLARY SERVICES) Vitamin D 25-OH 13.0(L) 30.0 - 80.0 ng/mL [facility] Blood 05/26/2024 6:13 AM DIRECTOR OF ANCILLARY SERVICES 05/26/2024 10:19 AM DIRECTOR OF ANCILLARY SERVICES us Notinfile Unknown LAB BLOOD ORDERABLES Final Res ult Performing Organization Address [facility] Co de Phone Number [address] [place] [address] * (ABNORMAL) Prealbumin (05/26/2024 6:13 AM DIRECTOR OF ANCILLARY SERVICES) Prealbumin 13.2(L) 20.0 - 40.0 mg/dL [facility] Comment:Specimen is Lipemic; results may be inaccurate due to high levels of lipids. Blood 05/26/2024 6:13 AM DIRECTOR OF ANCILLARY SERVICES 05/26/2024 10:19 AM DIRECTOR OF ANCILLARY SERVICES us Notinfile Unknown LAB BLOOD ORDERABLES Final Res ult Performing Organization Address [facility] [facility] Co de Phone Number [address] [place] [address] * Phosphorus (05/26/2024 6:13 AM DIRECTOR OF ANCILLARY SERVICES) Phosphorus, pl 4.1 2.3 - 4.5 mg/dL JARED PÉREZ Comment:Testing performed by : [address] [address] Blood 05/26/2024 6:13 AM DIRECTOR OF ANCILLARY SERVICES 05/26/2024 8:39 AM DIRECTOR OF ANCILLARY SERVICES us Notinfile Unknown LAB BLOOD ORDERABLES Final Res ult JARED [address] [address] * Magnesium (05/26/2024 6:13 AM DIRECTOR OF ANCILLARY SERVICES) Pathologist [facility] Magnesium 2.5 1.4 - 2.5 mg/dL JARED Comment:Testing performed by : [address] [address] Blood 05/26/2024 6:13 AM DIRECTOR OF ANCILLARY SERVICES 05/26/2024 8:39 AM DIRECTOR OF ANCILLARY SERVICES us Notinfile Unknown LAB BLOOD ORDERABLES Final Res ult Performing Organization Address City/[facility]/ZIP Co de Phone Number [address] [address] * Vitamin B12 (05/26/2024 6:13 AM DIRECTOR OF ANCILLARY SERVICES) Vitamin B12 421 230 - 1,250 pg/mL JARED Comment:Testing performed by : [address] [address] Blood 05/26/2024 6:13 AM DIRECTOR OF ANCILLARY SERVICES 05/26/2024 8:39 AM DIRECTOR OF ANCILLARY SERVICES us Notinfile Unknown LAB BLOOD ORDERABLES Final Res ult [address] [place] [address] * (ABNORMAL) Comprehensive metabolic panel (05/26/2024 6:13 AM DIRECTOR OF ANCILLARY SERVICES) Sodium 136 135 - 145 mmol/L JARED Comment:Testing performed by : [address] [address] Potassium, pl 4.4 3.3 - 4.9 mmol/L JARED Comment:Testing performed by : [address] [address] Chloride 105 97 - 110 mmol/L JARED Comment:Testing performed by : [address], [place]., [address] CO2 21(L) 22 - 32 mmol/L JARED Comment:Testing performed by : [address] [address] Anion gap 10 2 - 15 mmol/L JARED Comment:Testing performed by : [address] [address] BUN 15 6 - 25 mg/dL JARED Comment:Testing performed by : [address] [address] Creatinine 0.80 0.60 - 1.10 mg/dL JARED Comment:Testing performed by : [address] [address] Glucose 111 70 - 199 mg/dL JARED Comment: Interpretive Data Fasting glucose >/= 126 mg/dl is diagnostic for diabetes. Fasting is defined as no caloric intake for at least 8 hours. Fasting glucose between 100 mg/dl to 125 mg/dl is diagnostic of prediabetes. In a patient with classic symptoms of hyperglycemia or hyperglycemic crisis, a random glucose >/= 200 mg/dl is diagnostic for diabetes. In the absence of unequivocal hyperglycemia, results should be confirmed by repeat testing. The classification and Diagnosis of Diabetes Diabetes Care 202; 46: S19-S40. Current interpretive data was last revised 2022. Testing performed by: [address] [address] Calcium 10.4(H) 8.5 - 10.3 mg/dL JARED Comment:Testing performed by : [address] [address] Bilirubin, total 0.6 0.1 - 1.2 mg/dL JARED PÉREZ Comment:Testing performed by : [address] [address] Protein, pl 6.9 6.5 - 8.5 g/dL JARED PÉREZ Comment:Testing performed by : [address] [address] Albumin 3.8 3.5 - 5.0 g/dL JARED Comment:Testing performed by : [address] [address] Alk phos 92 40 - 130 Units/L JARED Comment:Testing performed by : [address] [address] ALT 8 7 - 45 Units/L JARED Comment:Testing performed by : [address] [address] AST 26 10 - 45 Units/L JAERD Comment:Testing performed by : [address] [address] Blood 05/26/2024 6:13 AM DIRECTOR OF ANCILLARY SERVICES 05/26/2024 8:39 AM DIRECTOR OF ANCILLARY SERVICES us Notinfile Unknown LAB BLOOD ORDERABLES Final Res ult [facility] [address] [facility] Department [place] [address] * POCT glucose (05/25/2024 12:22 PM DIRECTOR OF ANCILLARY SERVICES) [employer] Signature Glucose, POC 146 70 - 199 mg/dL Comment:Testing performed by : [address] [address] Glucose comment 1 Use This Result JARED PÉREZ Comment:Testing performed by : [address] [address] Glucose comment 2 RN/MD Notified JARED PÉREZ Comment:Testing performed by : [address] [address] Blood 05/25/2024 12:2 2 PM DIRECTOR OF ANCILLARY SERVICES 05/25/2024 12:22 PM DIRECTOR OF ANCILLARY SERVICES August Juan MD LAB POCT ORDERABLES - D EVICE Final Result Performing Organization Address [facility] de Phone Number JARED [facility] [place] [address] * POCT glucose (05/25/2024 7:46 AM DIRECTOR OF ANCILLARY SERVICES) [facility] Glucose, POC 97 70 - 199 mg/dL Comment:Testing performed by : [address] [address] Glucose comment 1 Use This Result JARED PÉREZ Comment:Testing performed by : [address] [address] Glucose comment 2 RN/MD Notified JARED PÉREZ Comment:Testing performed by : [address] [address] Blood 05/25/2024 7:46 AM DIRECTOR OF ANCILLARY SERVICES 05/25/2024 7:46 AM DIRECTOR OF ANCILLARY SERVICES August Juan MD LAB POCT ORDERABLES - D EVICE Final Result Performing Organization Address [facility] Co de Phone Number JARED [facility] [place] [address] * eGFR (05/25/2024 6:01 AM DIRECTOR OF ANCILLARY SERVICES) [facility] eGFR >90 >=60 mL/min/1. 73 m2 Comment: Interpretive Data Reference Interval Normal >/= 90 mL/min/1.73m2 Mildly decreased* 60 - 89 mL/min/1.73m2 Mildly to moderately decreased 45 - 59 mL/min/1.73m2 Moderately to severely decreased 30 - 44 mL/min/1.73m2 Severely decreased 15 - 29 mL/min/1.73m2 Kidney Failure < 15 mL/min/1.73m2 *Relative to young adult level Estimated glomerular filtration rate is determined by the 2020 CKD-EPI equation recommended by the National Kidney Foundation (A Unifying Approach to GFR Estimation: Recommendations of the NKF-ASK Task Force on Reassessing the Inclusion of Race in Diagnosing Kidney Disease, JASN 2020). The CKD-EPI equation should not be used for patients with unstable renal function and has not been validated in children and those over 70. Current interpretive data was last reviewed 2021. Testing performed by: [address] [address] Blood 05/25/2024 6:01 AM DIRECTOR OF ANCILLARY SERVICES 05/25/2024 6:27 AM DIRECTOR OF ANCILLARY SERVICES us Jenise Joyce NP LAB BLOOD ORDERABLES Final Re sult [facility] [address] [facility] Department [place] [address] * Differential, auto (05/25/2024 6:01 AM DIRECTOR OF ANCILLARY SERVICES) Neutrophil abs 5.6 1.5 - 6.5 K/cumm Comment:Testing performed by : [address] [address] Imm gran abs 0.0 0.0 - 0.1 K/cumm JARED Comment:Testing performed by : [address] [address] Lymphocyte abs 1.2 0.8 - 3.3 K/cumm JARED Comment:Testing performed by : [address] [address] Monocyte abs 0.7 0.2 - 0.8 K/cumm JARED Comment:Testing performed by : [address] [address] Eosinophil abs 0.2 0.0 - 0.5 K/cumm JARED Comment:Testing performed by : [address] [address] Basophil abs 0.1 0.0 - 0.1 K/cumm JARED Comment:Testing performed by : [address] [address] Neutrophil pct 72.0 % JARED Comment: Interpretive Data Percent cell count reference ranges are not reported, since discordance with absolute values may lead to misinterpretation of CBC data. Current Interpretive Data was last revised on 2017. Testing performed by: [address] [address] Imm gran pct 0.3 % [facility] Comment: Interpretive Data Percent cell count reference ranges are not reported, since discordance with absolute values may lead to misinterpretation of CBC data. Current Interpretive Data was last revised on 2017. Testing performed by: [address] [address] Lymphocyte pct 15.7 % [facility] Comment: Interpretive Data Percent cell count reference ranges are not reported, since discordance with absolute values may lead to misinterpretation of CBC data. Current Interpretive Data was last revised on 2017. Testing performed by: [address] [address] Monocyte pct 8.5 % [facility] Comment: Interpretive Data Percent cell count reference ranges are not reported, since discordance with absolute values may lead to misinterpretation of CBC data. Current Interpretive Data was last revised on 2017. Testing performed by: [address] [address] Eosinophil pct 2.2 % [facility] Comment: Interpretive Data Percent cell count reference ranges are not reported, since discordance with absolute values may lead to misinterpretation of CBC data. Current Interpretive Data was last revised on 2017. Testing performed by: [address] [address] Basophil pct 1.3 % [facility] Comment: Interpretive Data Percent cell count reference ranges are not reported, since discordance with absolute values may lead to misinterpretation of CBC data. Current Interpretive Data was last revised on 2017. Testing performed by: [address] [address] Blood 05/25/2024 6:01 AM DIRECTOR OF ANCILLARY SERVICES 05/25/2024 6:27 AM DIRECTOR OF ANCILLARY SERVICES us Jenise Joyce NP LAB BLOOD ORDERABLES Final Re sult JARED [address] [facility] Department [place] [address] * (ABNORMAL) CBC with auto differential (05/25/2024 6:01 AM DIRECTOR OF ANCILLARY SERVICES) [facility] WBC 7.8 3.8 - 9.9 K/cumm Comment:Testing performed by : [address] [address] Hgb 11.9 11.9 - 15.5 g/dL JARED Comment:Testing performed by : [address] [address] Hct 37.4 35.6 - 45.5 % JARED Comment:Testing performed by : [address] [address] Plt 315 150 - 400 K/cumm JARED Comment:Testing performed by : [address] [address] MPV 9.8 9.1 - 12.3 fL JARED Comment:Testing performed by : [address] [address] RBC 4.93 3.90 - 5.20 M/cumm JARED Comment:Testing performed by : [address] [address] MCV 75.9(L) 81.3 - 96.4 fL JARED Comment:Testing performed by : [address] [address] MCH 24.1(L) 27.1 - 33.3 pg JARED Comment:Testing performed by : [address] [address] MCHC 31.8(L) 32.3 - 35.7 g/dL JARED Comment:Testing performed by : [address], [address] RDW CV 15.1(H) 11.1 - 14.9 % JARED Comment:Testing performed by : [address] [address] RDW SD 41.2 35.7 - 48.1 fL JARED Comment:Testing performed by : [address] [address] NRBC abs 0.00 0.00 - 0.01 K/cumm JARED Comment:Testing performed by : [address] [address] Blood 05/25/2024 6:01 AM DIRECTOR OF ANCILLARY SERVICES 05/25/2024 6:27 AM DIRECTOR OF ANCILLARY SERVICES Jenise Joyce NP LAB BLOOD ORDERABLES Final Re sult JARED [address] [facility] Department [place] [address] * Basic metabolic panel (05/25/2024 6:01 AM DIRECTOR OF ANCILLARY SERVICES) Sodium 136 135 - 145 mmol/L Comment:Testing performed by : [address] [address] Potassium, pl 4.3 3.3 - 4.9 mmol/L JARED Comment:Testing performed by : [address] [address] Chloride 104 97 - 110 mmol/L JARED Comment:Testing performed by : [address] [address] CO2 22 22 - 32 mmol/L JARED Comment:Testing performed by : [address] [address] Anion gap 10 2 - 15 mmol/L JARED Comment:Testing performed by : [address] [address] BUN 12 6 - 25 mg/dL JARED Comment:Testing performed by : [address] [address] Creatinine 0.70 0.60 - 1.10 mg/dL JARED Comment:Testing performed by : [address] [address] Glucose 102 70 - 199 mg/dL JARED Comment: Interpretive Data Fasting glucose >/= 126 mg/dl is diagnostic for diabetes. Fasting is defined as no caloric intake for at least 8 hours. Fasting glucose between 100 mg/dl to 125 mg/dl is diagnostic of prediabetes. In a patient with classic symptoms of hyperglycemia or hyperglycemic crisis, a random glucose >/= 200 mg/dl is diagnostic for diabetes. In the absence of unequivocal hyperglycemia, results should be confirmed by repeat testing. The classification and Diagnosis of Diabetes Diabetes Care 2021; 46: S19-S40. Current interpretive data was last revised 2022. Testing performed by: [address] [address] Calcium 10.2 8.5 - 10.3 mg/dL JARED Comment:Testing performed by : [address] [address] Blood 05/25/2024 6:01 AM DIRECTOR OF ANCILLARY SERVICES 05/25/2024 6:27 AM DIRECTOR OF ANCILLARY SERVICES us Jenise Joyce NP LAB BLOOD ORDERABLES Final Re sult Performing Organization Address City/[facility]/ZIP Co de Phone Number [address] [place] [address] * POCT glucose (05/24/2024 8:32 PM DIRECTOR OF ANCILLARY SERVICES) Glucose, POC 107 70 - 199 mg/dL Comment:Testing performed by : [address] [address] Glucose comment 1 Use This Result JARED Comment:Testing performed by : [address] [address] Blood 05/24/2024 8:32 PM DIRECTOR OF ANCILLARY SERVICES 05/24/2024 8:32 PM DIRECTOR OF ANCILLARY SERVICES us August Juan MD LAB POCT ORDERABLES - D JEFFERYICE Final Result Performing Organization Address City/[facility]/ZIP Co de Phone Number [address] [place] [address] * POCT glucose (05/24/2024 5:18 PM DIRECTOR OF ANCILLARY SERVICES) Glucose, POC 103 70 - 199 mg/dL Comment:Testing performed by : [address] [address] Glucose comment 1 Use This Result JARED Comment:Testing performed by : [facility], [address] [place] [address]., [address] Glucose comment 2 RN/MD Notified JARED Comment:Testing performed by : [facility], [address] [place] [address]., [address] Blood 05/24/2024 5:18 PM DIRECTOR OF ANCILLARY SERVICES 05/24/2024 5:18 PM DIRECTOR OF ANCILLARY SERVICES August Juan MD LAB POCT ORDERABLES - D EVICE Final Result Performing Organization Address [facility] Co de Phone Number PETRTARA [address] [place] [address] * POCT glucose (05/24/2024 11:59 AM DIRECTOR OF ANCILLARY SERVICES) [facility] Glucose, POC 171 70 - 199 mg/dL Comment:Testing performed by : [facility], [address] [place] [address]., [address] Glucose comment 1 Use This Result JARED Comment:Testing performed by : [facility], [address] [place] [address]., [address] Glucose comment 2 RN/MD Notified JARED Comment:Testing performed by : [facility], [address] [place] [address]., [address] Blood 05/24/2024 11:5 9 AM DIRECTOR OF ANCILLARY SERVICES 05/24/2024 11:59 AM DIRECTOR OF ANCILLARY SERVICES August Juan MD LAB POCT ORDERABLES - D EVICE Final Result Performing Organization Address [facility] Co de Phone Number [place] [address] [facility] [place] [address] * eGFR (05/24/2024 7:58 AM DIRECTOR OF ANCILLARY SERVICES) [facility] eGFR 77 >=60 mL/min/1. 73 m2 Comment: Interpretive Data Reference Interval Normal >/= 90 mL/min/1.73m2 Mildly decreased* 60 - 89 mL/min/1.73m2 Mildly to moderately decreased 45 - 59 mL/min/1.73m2 Moderately to severely decreased 30 - 44 mL/min/1.73m2 Severely decreased 15 - 29 mL/min/1.73m2 Kidney Failure < 15 mL/min/1.73m2 *Relative to young adult level Estimated glomerular filtration rate is determined by the 2020 CKD-EPI equation recommended by the National Kidney Foundation (A Unifying Approach to GFR Estimation: Recommendations of the NKF-ASK Task Force on Reassessing the Inclusion of Race in Diagnosing Kidney Disease, JASN 2020). The CKD-EPI equation should not be used for patients with unstable renal function and has not been validated in children and those over 70. Current interpretive data was last reviewed 2021. Testing performed by: [address] [address] Blood 05/24/2024 7:58 AM DIRECTOR OF ANCILLARY SERVICES 05/24/2024 9:06 AM DIRECTOR OF ANCILLARY SERVICES us Jenise Joyce NP LAB BLOOD ORDERABLES Final Re sult [facility] [address] [facility] Department [place] [address] * Differential, auto (05/24/2024 7:58 AM DIRECTOR OF ANCILLARY SERVICES) Neutrophil abs 5.0 1.5 - 6.5 K/cumm Comment:Testing performed by : [address] [address] Imm gran abs 0.0 0.0 - 0.1 K/cumm JARED Comment:Testing performed by : [address] [address] Lymphocyte abs 1.2 0.8 - 3.3 K/cumm JARED Comment:Testing performed by : [address] [address] Monocyte abs 0.5 0.2 - 0.8 K/cumm JARED Comment:Testing performed by : [address] [address] Eosinophil abs 0.1 0.0 - 0.5 K/cumm JARED Comment:Testing performed by : [address] [address] Basophil abs 0.1 0.0 - 0.1 K/cumm JARED Comment:Testing performed by : [address] [address] Neutrophil pct 71.8 % [facility] Comment: Interpretive Data Percent cell count reference ranges are not reported, since discordance with absolute values may lead to misinterpretation of CBC data. Current Interpretive Data was last revised on 2017. Testing performed by: [address] [address] Imm gran pct 0.4 % [facility] Comment: Interpretive Data Percent cell count reference ranges are not reported, since discordance with absolute values may lead to misinterpretation of CBC data. Current Interpretive Data was last revised on 2017. Testing performed by: [address] [address] Lymphocyte pct 16.8 % [facility] Comment: Interpretive Data Percent cell count reference ranges are not reported, since discordance with absolute values may lead to misinterpretation of CBC data. Current Interpretive Data was last revised on 2017. Testing performed by: [address] [address] Monocyte pct 7.8 % [facility] Comment: Interpretive Data Percent cell count reference ranges are not reported, since discordance with absolute values may lead to misinterpretation of CBC data. Current Interpretive Data was last revised on 2017. Testing performed by: [address] [address] Eosinophil pct 1.9 % [facility] Comment: Interpretive Data Percent cell count reference ranges are not reported, since discordance with absolute values may lead to misinterpretation of CBC data. Current Interpretive Data was last revised on 2017. Testing performed by: [address] [address] Basophil pct 1.3 % [facility] Comment: Interpretive Data Percent cell count reference ranges are not reported, since discordance with absolute values may lead to misinterpretation of CBC data. Current Interpretive Data was last revised on 2017. Testing performed by: [address] [address] Blood 05/24/2024 7:58 AM DIRECTOR OF ANCILLARY SERVICES 05/24/2024 9:08 AM DIRECTOR OF ANCILLARY SERVICES us Jenise Joyce NP LAB BLOOD ORDERABLES Final Re sult [facility] [address] [facility] Department [place] [address] * (ABNORMAL) CBC with auto differential (05/24/2024 7:58 AM DIRECTOR OF ANCILLARY SERVICES) WBC 7.0 3.8 - 9.9 K/cumm Comment:Testing performed by : [address] [address] Hgb 12.1 11.9 - 15.5 g/dL JARED Comment:Testing performed by : [address] [address] Hct 37.8 35.6 - 45.5 % JARED Comment:Testing performed by : [address] [address] Plt 318 150 - 400 K/cumm JARED Comment:Testing performed by : [address] [address] MPV 9.4 9.1 - 12.3 fL JARED Comment:Testing performed by : [address] [address] RBC 4.92 3.90 - 5.20 M/cumm JARED Comment:Testing performed by : [address] [address] MCV 76.8(L) 81.3 - 96.4 fL JARED Comment:Testing performed by : [address] [address] MCH 24.6(L) 27.1 - 33.3 pg JARED Comment:Testing performed by : [address] [address] MCHC 32.0(L) 32.3 - 35.7 g/dL JARED Comment:Testing performed by : [address] [address] RDW CV 15.2(H) 11.1 - 14.9 % JARED PÉREZ Comment:Testing performed by : [address] [address] RDW SD 41.7 35.7 - 48.1 fL JARED PÉREZ Comment:Testing performed by : [address] [address] NRBC abs 0.00 0.00 - 0.01 K/cumm JARED PÉREZ Comment:Testing performed by : [address] [address] Blood 05/24/2024 7:58 AM DIRECTOR OF ANCILLARY SERVICES 05/24/2024 9:08 AM DIRECTOR OF ANCILLARY SERVICES us Jenise Joyce NP LAB BLOOD ORDERABLES Final Re sult JARED [facility] Department [place] [address] * (ABNORMAL) Basic metabolic panel (05/24/2024 7:58 AM DIRECTOR OF ANCILLARY SERVICES) Sodium 136 135 - 145 mmol/L Comment:Testing performed by : [address] [address] Potassium, pl 4.7 3.3 - 4.9 mmol/L JARED PÉREZ Comment: Hemolyzed; Potassium value may be falsely elevated by as much as 1.0 mmol/L. Suggest redraw and reanalysis. Testing performed by: [address] [address] Chloride 106 97 - 110 mmol/L JARED PÉREZ Comment:Testing performed by : [address] [address] CO2 20(L) 22 - 32 mmol/L JARED PÉREZ Comment:Testing performed by : [address] [address] Anion gap 10 2 - 15 mmol/L JARED PÉREZ Comment:Testing performed by : [address] [address] BUN 14 6 - 25 mg/dL JARED PÉREZ Comment:Testing performed by : [address] [address] Creatinine 0.81 0.60 - 1.10 mg/dL JARED PÉREZ Comment:Testing performed by : [address] [address] Glucose 99 70 - 199 mg/dL JARED PÉREZ Comment: Interpretive Data Fasting glucose >/= 126 mg/dl is diagnostic for diabetes. Fasting is defined as no caloric intake for at least 8 hours. Fasting glucose between 100 mg/dl to 125 mg/dl is diagnostic of prediabetes. In a patient with classic symptoms of hyperglycemia or hyperglycemic crisis, a random glucose >/= 200 mg/dl is diagnostic for diabetes. In the absence of unequivocal hyperglycemia, results should be confirmed by repeat testing. The classification and Diagnosis of Diabetes Diabetes Care 202; 46: S19-S40. Current interpretive data was last revised 2022. Testing performed by: [address] [address] Calcium 9.9 8.5 - 10.3 mg/dL JARED Comment:Testing performed by : [address] [address] Blood 05/24/2024 7:58 AM DIRECTOR OF ANCILLARY SERVICES 05/24/2024 9:06 AM DIRECTOR OF ANCILLARY SERVICES us Jenise Joyce NP LAB BLOOD ORDERABLES Final Re sult Performing Organization Address City/State/[facility] Co de Phone Number JARED [address] [facility] Department of [facility] [place], [place] [id number] * POCT glucose (05/24/2024 7:42 AM DIRECTOR OF ANCILLARY SERVICES) [facility] Glucose, POC 99 70 - 199 mg/dL Comment:Testing performed by : [address] [address] Glucose comment 1 Use This Result JARED PÉREZ Comment:Testing performed by : [address] [address] Glucose comment 2 RN/MD Notified JARED PÉREZ Comment:Testing performed by : [address] [address] Blood 05/24/2024 7:42 AM DIRECTOR OF ANCILLARY SERVICES 05/24/2024 7:42 AM DIRECTOR OF ANCILLARY SERVICES August Juan MD LAB POCT ORDERABLES - D EVICE Final Result Performing Organization Address [facility] de Phone Number JARED [address] [facility] [place] [address] * POCT glucose (05/23/2024 9:07 PM DIRECTOR OF ANCILLARY SERVICES) Glucose, POC 164 70 - 199 mg/dL Comment:Testing performed by : [address] [address] Glucose comment 1 Use This Result JARED PÉREZ Comment:Testing performed by : [address] [address] Glucose comment 2 RN/MD Notified JARED Comment:Testing performed by : [address] [address] Blood 05/23/2024 9:07 PM DIRECTOR OF ANCILLARY SERVICES 05/23/2024 9:07 PM DIRECTOR OF ANCILLARY SERVICES August Juan MD LAB POCT ORDERABLES - D EVICE Final Result Performing Organization Address [facility] Co de Phone Number JARED [address] [place] [address] * POCT glucose (05/23/2024 5:55 PM DIRECTOR OF ANCILLARY SERVICES) Glucose, POC 97 70 - 199 mg/dL Comment:Testing performed by : [address] [address] Glucose comment 1 Use This Result JARED Comment:Testing performed by : [address] [address] Glucose comment 2 RN/MD Notified JARED Comment:Testing performed by : [address] [address] Blood 05/23/2024 5:55 PM DIRECTOR OF ANCILLARY SERVICES 05/23/2024 5:55 PM DIRECTOR OF ANCILLARY SERVICES August Juan MD LAB POCT ORDERABLES - D EVICE Final Result Performing Organization Address [facility] Co de Phone Number JARED [address] [facility] [place] [address] * POCT glucose (05/23/2024 11:06 AM DIRECTOR OF ANCILLARY SERVICES) Glucose, POC 191 70 - 199 mg/dL Comment:Testing performed by : [address] [address] Glucose comment 1 Use This Result JARED Comment:Testing performed by : [address] [address] Glucose comment 2 RN/MD Notified JARED Comment:Testing performed by : [address] [address] Blood 05/23/2024 11:0 6 AM DIRECTOR OF ANCILLARY SERVICES 05/23/2024 11:06 AM DIRECTOR OF ANCILLARY SERVICES August Juan MD LAB POCT ORDERABLES - D EVICE Final Result Performing Organization Address [facility] Co de Phone Number JARED [facility] [place] [address] * POCT glucose (05/23/2024 8:02 AM DIRECTOR OF ANCILLARY SERVICES) Glucose, POC 109 70 - 199 mg/dL Comment:Testing performed by : [address] [address] Glucose comment 1 Use This Result JARED Comment:Testing performed by : [address] [address] Glucose comment 2 RN/MD Notified JARED Comment:Testing performed by : [address] [address] Blood 05/23/2024 8:02 AM DIRECTOR OF ANCILLARY SERVICES 05/23/2024 8:02 AM DIRECTOR OF ANCILLARY SERVICES August Juan MD LAB POCT ORDERABLES - D EVICE Final Result Performing Organization Address [facility] de Phone Number JARED [facility] [place] [address] * eGFR (05/23/2024 5:34 AM DIRECTOR OF ANCILLARY SERVICES) eGFR >90 >=60 mL/min/1. 73 m2 Comment: Interpretive Data Reference Interval Normal >/= 90 mL/min/1.73m2 Mildly decreased* 60 - 89 mL/min/1.73m2 Mildly to moderately decreased 45 - 59 mL/min/1.73m2 Moderately to severely decreased 30 - 44 mL/min/1.73m2 Severely decreased 15 - 29 mL/min/1.73m2 Kidney Failure < 15 mL/min/1.73m2 *Relative to young adult level Estimated glomerular filtration rate is determined by the 2020 CKD-EPI equation recommended by the National Kidney [employer] (A Unifying Approach to GFR Estimation: Recommendations of the NKF-ASK Task Force on Reassessing the Inclusion of Race in Diagnosing Kidney Disease, JASN 2020). The CKD-EPI equation should not be used for patients with unstable renal function and has not been validated in children and those over 70. Current interpretive data was last reviewed 2021. Testing performed by: [address] [address] Blood 05/23/2024 5:34 AM DIRECTOR OF ANCILLARY SERVICES 05/23/2024 6:19 AM DIRECTOR OF ANCILLARY SERVICES us Jenise Joyce NP LAB BLOOD ORDERABLES Final Re sult Performing Organization Address [facility] Co de Phone Number [facility] [address] [facility] [place] [address] * Differential, auto (05/23/2024 5:34 AM DIRECTOR OF ANCILLARY SERVICES) Neutrophil abs 5.5 1.5 - 6.5 K/cumm Comment:Testing performed by : [address] [address] Imm gran abs 0.1 0.0 - 0.1 K/cumm JARED Comment:Testing performed by : [address] [address] Lymphocyte abs 1.6 0.8 - 3.3 K/cumm CERNER Comment:Testing performed by : [address] [address] Monocyte abs 0.8 0.2 - 0.8 K/cumm [facility] Comment:Testing performed by : [address] [address] Eosinophil abs 0.2 0.0 - 0.5 K/cumm [facility] Comment:Testing performed by : [address], [place]., [address] Basophil abs 0.1 0.0 - 0.1 K/cumm [facility] Comment:Testing performed by : [address] [address] Neutrophil pct 66.9 % [facility] Comment: Interpretive Data Percent cell count reference ranges are not reported, since discordance with absolute values may lead to misinterpretation of CBC data. Current Interpretive Data was last revised on 2017. Testing performed by: [address] [address] Imm gran pct 1.1 % [facility] Comment: Interpretive Data Percent cell count reference ranges are not reported, since discordance with absolute values may lead to misinterpretation of CBC data. Current Interpretive Data was last revised on 2017. Testing performed by: [address] [address] Lymphocyte pct 19.0 % [facility] Comment: Interpretive Data Percent cell count reference ranges are not reported, since discordance with absolute values may lead to misinterpretation of CBC data. Current Interpretive Data was last revised on 2017. Testing performed by: [address] [address] Monocyte pct 9.6 % CERN[facility] Comment: Interpretive Data Percent cell count reference ranges are not reported, since discordance with absolute values may lead to misinterpretation of CBC data. Current Interpretive Data was last revised on 2017. Testing performed by: [address] [address] Eosinophil pct 2.1 % CERNER Comment: Interpretive Data Percent cell count reference ranges are not reported, since discordance with absolute values may lead to misinterpretation of CBC data. Current Interpretive Data was last revised on 2017. Testing performed by: [address] [address] Basophil pct 1.3 % JARED PÉREZ Comment: Interpretive Data Percent cell count reference ranges are not reported, since discordance with absolute values may lead to misinterpretation of CBC data. Current Interpretive Data was last revised on 2017. Testing performed by: [address] [address] Blood 05/23/2024 5:34 AM DIRECTOR OF ANCILLARY SERVICES 05/23/2024 6:19 AM DIRECTOR OF ANCILLARY SERVICES us Jenise Joyce NP LAB BLOOD ORDERABLES Final Re sult JARED [address] [facility] [place] [address] * (ABNORMAL) CBC with auto differential (05/23/2024 5:34 AM DIRECTOR OF ANCILLARY SERVICES) WBC 8.2 3.8 - 9.9 K/cumm Comment:Testing performed by : [address] [address] Hgb 11.9 11.9 - 15.5 g/dL JARED PÉREZ Comment:Testing performed by : [address] [address] Hct 37.9 35.6 - 45.5 % JARED PÉREZ Comment:Testing performed by : [address] [address] Plt 295 150 - 400 K/cumm JARED PÉREZ Comment:Testing performed by : [address] [address] MPV 9.4 9.1 - 12.3 fL JARED PÉREZ Comment:Testing performed by : [address] [address] RBC 4.95 3.90 - 5.20 M/cumm JARED PÉREZ Comment:Testing performed by : [address] [address] MCV 76.6(L) 81.3 - 96.4 fL JARED PÉREZ Comment:Testing performed by : [address] [address] MCH 24.0(L) 27.1 - 33.3 pg JARED PÉREZ Comment:Testing performed by : [address] [address] MCHC 31.4(L) 32.3 - 35.7 g/dL JARED PÉREZ Comment:Testing performed by : [address] [address] RDW CV 15.3(H) 11.1 - 14.9 % JARED PÉREZ Comment:Testing performed by : [address] [address] RDW SD 42.3 35.7 - 48.1 fL JARED PÉREZ Comment:Testing performed by : [address] [address] NRBC abs 0.00 0.00 - 0.01 K/cumm JARED PÉREZ Comment:Testing performed by : [address], [address] Blood 05/23/2024 5:34 AM DIRECTOR OF ANCILLARY SERVICES 05/23/2024 6:19 AM DIRECTOR OF ANCILLARY SERVICES us Jenise Joyce NP LAB BLOOD ORDERABLES Final Re sult JARED [address] [facility] Department of Laboratories [place], [place] [id number] * (ABNORMAL) Basic metabolic panel (05/23/2024 5:34 AM DIRECTOR OF ANCILLARY SERVICES) Sodium 138 135 - 145 mmol/L Comment:Testing performed by : [address] [address] Potassium, pl 4.1 3.3 - 4.9 mmol/L JARED PÉREZ Comment:Testing performed by : [address] [address] Chloride 107 97 - 110 mmol/L JARED PÉREZ Comment:Testing performed by : [address] [address] CO2 20(L) 22 - 32 mmol/L JARED Comment:Testing performed by : [address] [address] Anion gap 11 2 - 15 mmol/L JARED Comment:Testing performed by : [address] [address] BUN 13 6 - 25 mg/dL JARED Comment:Testing performed by : [address] [address] Creatinine 0.70 0.60 - 1.10 mg/dL JARED Comment:Testing performed by : [address] [address] Glucose 106 70 - 199 mg/dL AJRED Comment: Interpretive Data Fasting glucose >/= 126 mg/dl is diagnostic for diabetes. Fasting is defined as no caloric intake for at least 8 hours. Fasting glucose between 100 mg/dl to 125 mg/dl is diagnostic of prediabetes. In a patient with classic symptoms of hyperglycemia or hyperglycemic crisis, a random glucose >/= 200 mg/dl is diagnostic for diabetes. In the absence of unequivocal hyperglycemia, results should be confirmed by repeat testing. The classification and Diagnosis of Diabetes Diabetes Care 202; 46: S19-S40. Current interpretive data was last revised 2022. Testing performed by: [address] [address] Calcium 9.7 8.5 - 10.3 mg/dL JARED Comment:Testing performed by : [address] [address] Blood 05/23/2024 5:34 AM DIRECTOR OF ANCILLARY SERVICES 05/23/2024 6:19 AM DIRECTOR OF ANCILLARY SERVICES us Jenise Joyce NP LAB BLOOD ORDERABLES Final Re sult JARED PÉREZ [address] [facility] Department [place] [address] * POCT glucose (05/22/2024 9:13 PM DIRECTOR OF ANCILLARY SERVICES) Glucose, POC 171 70 - 199 mg/dL Comment:Testing performed by : [facility], [address] [place] [address]., [address] Glucose comment 1 Use This Result JARED PÉREZ Comment:Testing performed by : [facility], [address] [place] [address]., [address] Blood 05/22/2024 9:13 PM DIRECTOR OF ANCILLARY SERVICES 05/22/2024 9:13 PM DIRECTOR OF ANCILLARY SERVICES us Christiano Cummins MD LAB POCT ORDERABLES - DEVICE Final Result [facility] [address] [facility] Department [place] [address] * CTA Head Neck W WO Contrast (05/22/2024 8:04 PM DIRECTOR OF ANCILLARY SERVICES) Anatomical Region Laterality Modality Head and Neck N/A Computed Tomogra phy 05/22/2024 10:1 0 PM DIRECTOR OF ANCILLARY SERVICES Narrative 05/22/2024 10:25 PM DIRECTOR OF ANCILLARY SERVICES EXAM DESCRIPTION: CTA HEAD NECK W WO CONTRAST REASON FOR STUDY: Stroke/TIA, determine embolic source Stroke/TIA , determine embolic source. TECHNIQUE: Axial images were first obtained through the brain without contrast. Axial dynamic scanning technique with dynamic contrast enhancement through the intracranial and extracranial carotid and vertebral arteries. Multiplanar reconstruction. All stenosis measurements are based on NASCET criteria. 3D MIP images rendered on scanning unit and reviewed at time of interpretation. Automated exposure control was used as a dose optimization technique for this examination. CONTRAST TYPE/DOSE: 100mL of IOVERSOL 350 MG IODINE/ML INTRAVENOUS SYRINGE injected via intravenous COMPARISON: MRI of the brain of May 21, [address] of the head and CTA of the head and neck of May 20, 2024. FINDINGS: HEAD BRAIN: There is no midline shift, mass or mass effect. The ventricles, cisterns and sulci are globally and proportionally prominent consistent with atrophy. There is normal differentiation of the zazueta-white matter. There is no intracranial hemorrhage. There is decreased attenuation in the periventricular white matter, nonspecific, but likely related to small vessel ischemic change. There are multiple old left basal ganglia and walters radiata lacunar infarcts with mild ex vacuo dilation of the adjacent left lateral ventricle, unchanged. No abnormality is visible to correspond to the small focus of restricted diffusion seen in the left basal ganglia and walters radiata on previous MRI. EXTRA-AXIAL SPACES: No fluid collections. No masses. CALVARIUM: No fracture. SINUSES/MASTOIDS: No fluid or mucosal thickening. ORBITS: No significant abnormality. INTRACRANIAL VESSELS TORRES MARTINEZ OF [place]: The posterior communicating arteries are not well visualized bilaterally. The cgjvnh-ig-Iomjxu is otherwise intact. ANTERIOR CIRCULATION: There is heavy athero sclerotic calcification of the bilateral carotid siphons appear patent without significant stenosis. The anterior cerebral arteries are patent. The anterior communicating artery is patent. The middle cerebral arteries are patent. POSTERIOR CIRCULATION: The posterior cerebral arteries are patent. The basilar artery is patent. The distal vertebral arteries are patent. The vertebral arteries are codominant. CAROTID CTA AORTIC ARCH: There is atherosclerosis of the aorta. There is normal three-vessel anatomy. RIGHT CAROTIDS: The right common and internal carotid arteries are patent. There is atherosclerosis of the right carotid bulb. No significant stenosis. No dissection. LEFT CAROTIDS: The left common and internal carotid arteries are patent. There is atherosclerosis of the left carotid bulb. No significant stenosis. No dissection. RIGHT VERTEBRAL: Patent. No significant stenosis. No dissection. LEFT VERTEBRAL: Patent. No significant stenosis. No dissection. NON-VASCULAR SOFT TISSUES: There is a 3.7 cm enhancing nodule in the right lobe of the thyroid. BONES: No acute bony abnormality seen. LUNG APICES: There are small scattered nodules seen in the lung apices measuring up to 5 mm in diameter. OTHER: No other significant finding. IMPRESSION: BRAIN: No acute intracranial abnormality. Acute infarct visualized on previous MRI is not detectable on current CT scan. Old left basal ganglia lacunar infarcts. Global atrophy and white matter changes consistent with small-vessel ischemic disease. INTRACRANIAL CTA: No large vessel occlusion or significant stenosis. CAROTID CTA: No significant stenosis of the carotid or vertebral arteries. 3.7 cm nodule in the right lobe of the thyroid. Recommend further evaluation with dedicated thyroid ultrasound. Small nodules in the lung apices measuring up to 5 mm in diameter. Per Fleischner Society Guidelines, no further investigation recommended. THIS IS AN ELECTRONICALLY VERIFIED FINAL REPORT 05/22/2024 10:25 PM - Electronically signed by Duyen Bautista M.D. SN: Report ID: [id number] Reading Location: [id number] Procedure Note Duyen Bautista MD - 05/22/2024 EXAM DESCRIPTION: CTA HEAD NECK W WO CONTRAST REASON FOR STUDY: Stroke/TIA, determine embolic source Stroke/TIA , determine embolic source. TECHNIQUE: Axial images were first obtained through the brain without contrast. Axial dynamic scanning technique with dynamic contrast enhancement throughthe intracranial and extracranial carotid and vertebral arteries. Multiplanar reconstruction. All stenosis measurements are based on NASCET criteria. 3D MIP images rendered on scanning unit and reviewed at time of interpretation. Automated exposure control was used as a dose optimization technique forthis examination. CONTRAST TYPE/DOSE: 100mL of IOVERSOL 350 MG IODINE/ML INTRAVENOUSSYRINGE injected via intravenous COMPARISON: MRI of the brain of May 21, [address] of the head and CTA of the head and neck of May 20, 2024. FINDINGS: HEAD BRAIN: There is no midline shift, mass or mass effect. The ventricles, cisterns and sulci are globally and proportionally prominent consistentwith atrophy. There is normal differentiation of the zazueta-white matter. Thereis no intracranial hemorrhage. There is decreased attenuation in the periventricular white matter, nonspecific, but likely related to smallvessel ischemic change. There are multiple old left basal ganglia and coronaradiata lacunar infarcts with mild ex vacuo dilation of the adjacent left lateral ventricle, unchanged. No abnormality is visible to correspond to thesmall focus of restricted diffusion seen in the left basal ganglia and walters radiata on previous MRI. EXTRA-AXIAL SPACES: No fluid collections. No masses. CALVARIUM: No fracture. SINUSES/MASTOIDS: No fluid or mucosal thickening. ORBITS: No significant abnormality. INTRACRANIAL VESSELS TORRES MARTINEZ OF [place]: The posterior communicating arteries are not wellvisualized bilaterally. The ybxdsl-jd-Mbtota is otherwise intact. ANTERIOR CIRCULATION: There is heavy athero sclerotic calcification ofthe bilateral carotid siphons appear patent without significant stenosis.The anterior cerebral arteries are patent. The anterior communicating arteryis patent. The middle cerebral arteries are patent. POSTERIOR CIRCULATION: The posterior cerebral arteries are patent. The basilar artery is patent. The distal vertebral arteries are patent.The vertebral arteries are codominant. CAROTID CTA AORTIC ARCH: There is atherosclerosis of the aorta. There is normal three-vessel anatomy. RIGHT CAROTIDS: The right common and internal carotid arteries arepatent. There is atherosclerosis of the right carotid bulb. No significantstenosis. No dissection. LEFT CAROTIDS: The left common and internal carotid arteries are patent. There is atherosclerosis of the left carotid bulb. No significantstenosis. No dissection. RIGHT VERTEBRAL: Patent. No significant stenosis. No dissection. LEFT VERTEBRAL: Patent. No significant stenosis. No dissection. NON-VASCULAR SOFT TISSUES: There is a 3.7 cm enhancing nodule in theright lobe of the thyroid. BONES: No acute bony abnormality seen. LUNG APICES: There are small scattered nodules seen in the lung apices measuring up to 5 mm in diameter. OTHER: No other significant finding. IMPRESSION: BRAIN: No acute intracranial abnormality. Acute infarct visualized on previousMRI is not detectable on current CT scan. Old left basal ganglia lacunar infarcts. Global atrophy and white matter changes consistent with small-vesselischemic disease. INTRACRANIAL CTA: No large vessel occlusion or significant stenosis. CAROTID CTA: No significant stenosis of the carotid or vertebral arteries. 3.7 cm nodule in the right lobe of the thyroid. Recommend furtherevaluation with dedicated thyroid ultrasound. Small nodules in the lung apices measuring up to 5 mm in diameter. Per Fleischner Society Guidelines, no further investigation recommended. THIS IS AN ELECTRONICALLY VERIFIED FINAL REPORT 05/22/2024 10:25 PM - Electronically signed by Duyen Bautista M.D. SN: Report ID: [id number] Reading Location: [place] [address] us Amita Bledsoe MD IMG CT PROCEDURES Fin al Result * POCT glucose (05/22/2024 6:14 PM DIRECTOR OF ANCILLARY SERVICES) [employer] Signature Glucose, POC 90 70 - 199 mg/dL Comment:Testing performed by : [address] [address] Glucose comment 1 Use This Result JARED Comment:Testing performed by : [address] [place]., [address] Glucose comment 2 RN/MD Notified JARED PÉREZ Comment:Testing performed by : [facility], [address] [place] [address]., [address] Blood 05/22/2024 6:14 PM DIRECTOR OF ANCILLARY SERVICES 05/22/2024 6:14 PM DIRECTOR OF ANCILLARY SERVICES us Christiano Cummins MD LAB POCT ORDERABLES - DEVICE Final Result Performing Organization Address City/State/[facility] Co de Phone Number JARED [address] [facility] Department [place] [address] * TRANSTHORACIC ECHO (TTE) COMPLETE W DOPPLER/CF W CONTRAST W BUBBLE (05/22/2024 2:20 PM DIRECTOR OF ANCILLARY SERVICES) Anatomical Region Laterality Modality Ultrasound 05/22/2024 1:27 PM DIRECTOR OF ANCILLARY SERVICES Narrative 05/23/2024 11:17 AM DIRECTOR OF ANCILLARY SERVICES Adult Echocardiogram + ----- + :Name: PINKY YAO Study Date: 05/22/2024 Status: E : : Patient Location: [address]^[id number]^MHeight: 65 in : : Weight: 170 lbBP: 161/60 mmHg: :: 1950 Gender: Female BSA: 1.8 m2 : :Reason For Study: cerebrovascular accident : :Ordering Physician: ZAHRA, : :JENISE : :Referring Physician: : :KARISHMA MARLEY : :Performed By: Calra : :ASHER Carr : + ----- + Procedure A two-dimensional transthoracic echocardiogram with color flow and Doppler was performed. A saline contrast injection was performed to assess for cardiac shunting. A contrast injection of Definity was performed to improve assessment of LV function. Definity lot # is ' [id number] '. Left Ventricle The left ventricle is normal in size. There is moderate concentric left ventricular hypertrophy. Left ventricular systolic function is normal. Ejection Fraction = 65-70%. No regional wall motion abnormalities noted. There is no obvious thrombus noted. Right Ventricle The right ventricle is mildly dilated. The right ventricular systolic function is normal. Atria A bubble study shows no evidence of intracardiac rxhpz-sq-sujs shunting, i.e. no evidence of patent foramen ovale (PFO). Mitral Valve There is no mitral valve stenosis. Aortic Valve Calcified 'non' coronary cusp. No aortic stenosis . Great Vessels The aortic root is normal size. Pericardium There is no pericardial effusion. Diastology Grade I diastolic dysfunction, (abnormal relaxation pattern). Interpretation Summary The left ventricle is normal in size. There is moderate concentric left ventricular hypertrophy. Left ventricular systolic function is normal. Ejection Fraction = 65-70%. No regional wall motion abnormalities noted. There is no obvious thrombus noted. Grade I diastolic dysfunction, (abnormal relaxation pattern). The right ventricle is mildly dilated. The right ventricular systolic function is normal. A bubble study shows no evidence of intracardiac sbast-nb-ursl shunting, i.e. no evidence of patent foramen ovale (PFO). + + :Measurements with Normals : :IVSd: 1.2 cm(0.6-1.2 LVIDd: (3.5-5.7 Ao root diam: (2.0-3.7 : : cm) 3.3 cm cm) 2.5 cm cm) : :LVPWd: (0.6-1.1 LVIDs: (3.1-4.6 LA dimension: (1.9-4.0 : :1.5 cm cm) 2.3 cm cm) 2.8 cm cm) : + + MMode/2D Measurements & Calculations RVDd: 3.6 cm FS: 30.3 % LVOT diam: 2.0 cm EDV(Teich): 43.2 ml Ao root area: 4.9 cm2 ESV(Teich): 17.7 ml LVOT area: 3.1 cm2 Doppler Measurements & Calculations MV E max abdon: MV V2 max: MV P1/2t max abdon: Ao V2 max: 114.0 cm/sec 128.0 cm/sec 140.0 cm/sec 202.0 cm/sec MV A max abdon: MV max PG: MV P1/2t: 38.5 msec Ao max P.1 cm/sec 6.6 mmHg 16.4 mmHg MV E/A: 1.9 MV V2 mean: MVA(P1/2t): 5.7 cm2 Ao V2 mean: 84.1 cm/sec MV dec slope: 133.0 cm/sec MV mean P cm/sec2 Ao mean P.0 mmHg MV dec time: 0.05 sec 8.3 mmHg MV V2 VTI: 18.0 cm Ao V2 VTI: 31.4 cm MVA(VTI): 4.0 cm2 BERNADINE(I,D): 2.3 cm2 BERNADINE(V,D): 2.3 cm2 LV V1 max PG: SV(LVOT): 72.3 ml PA V2 max: RV V1 max: 8.6 mmHg 134.0 cm/sec 119.0 cm/sec LV V1 mean PG: PA max P.2 mmHg 5.0 mmHg LV V1 max: 147.0 cm/sec LV V1 mean: 107.0 cm/sec LV V1 VTI: 23.0 cm Electronically signed by: Aden Hollingsworth MD 05/23/2024 11:17 AM Procedure Note Aden Hollingsworth MD - 05/23/2024 Adult Echocardiogram + ----- + :Name: PINKY YAO Study Date: 05/22/2024Status: MHE : : Patient Location: [address]^[id number]^MHeight: 65 in : : : 170 lbBP: 161/60 mmHg: :: 1950 Gender: FemaleBSA: 1.8 m2 : :Reason For Study: cerebrovascular accident: :Ordering Physician: ZAHRA,: :JENISE: :Referring Physician:: :KARISHMA MARLEY: :Performed By: Clara: :ASHER Carr: + ----- + Procedure A two-dimensional transthoracic echocardiogram with color flow and Dopplerwas performed. A saline contrast injection was performed to assess forcardiac shunting. A contrast injection of Definity was performed to improveassessment of LV function. Definity lot # is ' [id number] '. Left Ventricle The left ventricle is normal in size. There is moderate concentric left ventricular hypertrophy. Left ventricular systolic function is normal. Ejection Fraction = 65-70%. No regional wall motion abnormalities noted.There is no obvious thrombus noted. Right Ventricle The right ventricle is mildly dilated. The right ventricular systolicfunction is normal. Atria A bubble study shows no evidence of intracardiac evhik-up-nhan shunting,i.e. no evidence of patent foramen ovale (PFO). Mitral Valve There is no mitral valve stenosis. Aortic Valve Calcified 'non' coronary cusp. No aortic stenosis . Great Vessels The aortic root is normal size. Pericardium There is no pericardial effusion. Diastology Grade I diastolic dysfunction, (abnormal relaxation pattern). Interpretation Summary The left ventricle is normal in size. There is moderate concentric left ventricular hypertrophy. Left ventricular systolic function is normal. Ejection Fraction = 65-70%. No regional wall motion abnormalities noted.There is no obvious thrombus noted. Grade I diastolic dysfunction, (abnormal relaxation pattern). The right ventricle is mildly dilated. The right ventricular systolicfunction is normal. A bubble study shows no evidence of intracardiac lqlue-cw-qssa shunting,i.e. no evidence of patent foramen ovale (PFO). + + :Measurements with Normals: :IVSd: 1.2 cm(0.6-1.2 LVIDd: (3.5-5.7 Ao root diam:(2.0-3.7 : : cm) 3.3 cm cm) 2.5 cm cm): :LVPWd: (0.6-1.1 LVIDs: (3.1-4.6 LA dimension:(1.9-4.0 : :1.5 cm cm) 2.3 cm cm) 2.8 cm cm): + + MMode/2D Measurements & Calculations RVDd: 3.6 cm FS: 30.3 % LVOT diam: 2.0cm EDV(Teich): 43.2 ml Ao root area: 4.9 cm2 ESV(Teich): 17.7 ml LVOT area: 3.1cm2 Doppler Measurements & Calculations MV E max abdon: MV V2 max: MV P1/2t max abdon: Ao V2 max: 114.0 cm/sec 128.0 cm/sec 140.0 cm/sec 202.0 cm/sec MV A max abdon: MV max PG: MV P1/2t: 38.5 msec Ao max P.1 cm/sec 6.6 mmHg 16.4 mmHg MV E/A: 1.9 MV V2 mean: MVA(P1/2t): 5.7 cm2 Ao V2 mean: 84.1 cm/sec MV dec slope: 133.0 cm/sec MV mean P cm/sec2 Ao mean P.0 mmHg MV dec time: 0.05 sec 8.3 mmHg MV V2 VTI: 18.0 cm Ao V2 VTI:31.4 cm MVA(VTI): 4.0 cm2 BERNADINE(I,D): 2.3cm2 BERNADINE(V,D): 2.3cm2 LV V1 max PG: SV(LVOT): 72.3 ml PA V2 max: RV V1 max: 8.6 mmHg 134.0 cm/sec 119.0 cm/sec LV V1 mean PG: PA max P.2 mmHg 5.0 mmHg LV V1 max: 147.0 cm/sec LV V1 mean: 107.0 cm/sec LV V1 VTI: 23.0 cm Electronically signed by: Aden Hollingsworth MD 05/23/2024 11:17 AM us Jenise Joyce NP CV ECHO PROCEDURES Final Resu lt * POCT glucose (05/22/2024 12:48 PM DIRECTOR OF ANCILLARY SERVICES) [facility] Glucose, POC 172 70 - 199 mg/dL Comment:Testing performed by : [address] [address] Glucose comment 1 Use This Result JARED Comment:Testing performed by : [address] [address] Glucose comment 2 RN/MD Notified JARED Comment:Testing performed by : [address] [address] Blood 05/22/2024 12:4 8 PM DIRECTOR OF ANCILLARY SERVICES 05/22/2024 12:48 PM DIRECTOR OF ANCILLARY SERVICES us Christiano Cummins MD LAB POCT ORDERABLES - DEVICE Final Result JARED [address] [facility] Department [place] [address] * ECG 12 lead (05/22/2024 10:35 AM DIRECTOR OF ANCILLARY SERVICES) [facility] Ventricular Rate EKG/Min 70 BPM [facility] Atrial Rate 70 BPM [facility] FL-Interval (MSEC) 210 ms [facility] QRS-Interval (MSEC) 92 ms [facility] QT-Interval (MSEC) 412 ms [facility] QTc 444 ms [facility] P [place] 39 degrees [facility] R [place] -9 degrees [facility] T [place] -3 degrees [facility] Diagnosis Sinus rhythm with 1st degree A-V block Moderate voltage criteria for LVH, may be normal variant Inferior infarct , age undetermined Abnormal ECG No previous ECGs available Confirmed by ASPEN RAHMAN M.D. ([id number]) on 05/23/2024 7:37:36 AM [facility] 05/22/2024 10:3 5 AM DIRECTOR OF ANCILLARY SERVICES 05/23/2024 7:37 AM DIRECTOR OF ANCILLARY SERVICES Jenise Joyce NP ECG ORDERABLES Final Result [facility] * US Carotids Duplex Bilateral (05/22/2024 9:28 AM DIRECTOR OF ANCILLARY SERVICES) Anatomical Region Laterality Modality Vascular Bilateral Ultrasound 05/22/2024 Narrative 05/26/2024 7:36 AM DIRECTOR OF ANCILLARY SERVICES [employer] Job ID: [id number] [employer] Document ID: [id number] Dictated date/time: [id number] BILATERAL CAROTID DUPLEX REASON FOR EXAM Stroke. FINDINGS ON THE RIGHT The right CCA peak systolic velocity is 77 cm/second. Right ICA velocities 42, 51 and 56. ECA is 83. The right vertebral has antegrade flow. FINDINGS ON THE LEFT The left CCA peak systolic velocity is 58 cm/sec. Left ICA velocities are 32, 61, 52. ECA is 69. The left vertebral has antegrade flow. INTERPRETATION No evidence of significant stenosis in bilateral internal carotid arteries. Job ID/Internal Job ID: [id number] Jenise Joyce NP IMG US PROCEDURES Final Resul t * POCT glucose (05/22/2024 8:56 AM DIRECTOR OF ANCILLARY SERVICES) [facility] Glucose, POC 105 70 - 199 mg/dL Comment:Testing performed by : [facility], [address] [place] [address]., [address] Glucose comment 1 Use This Result JARED PÉREZ Comment:Testing performed by : [address] [address] Glucose comment 2 RN/MD Notified JARED PÉREZ Comment:Testing performed by : [address] [address] Blood 05/22/2024 8:56 AM DIRECTOR OF ANCILLARY SERVICES 05/22/2024 8:56 AM DIRECTOR OF ANCILLARY SERVICES Christiano Cummins MD LAB POCT ORDERABLES - DEVICE Final Result Performing Organization Address [facility] Co de Phone Number JARED [address] [place] [address] * (ABNORMAL) Iron profile w/ IBC (05/22/2024 8:03 AM DIRECTOR OF ANCILLARY SERVICES) Pathologist [facility] Iron 46 35 - 145 mcg/dL Comment:Testing performed by : [address] [address] TIBC 319 250 - 400 mcg/dL JARED PÉREZ Comment:Testing performed by : [address] [address] Transferrin saturation 14(L) 20 - 50 % JARED PÉREZ Comment:Testing performed by : [address] [address] Blood 05/22/2024 8:03 AM DIRECTOR OF ANCILLARY SERVICES 05/22/2024 9:04 AM DIRECTOR OF ANCILLARY SERVICES us Christiano Cummins MD LAB BLOOD ORDERABLES Final R esult Performing Organization Address City/[facility]/ZIP Co de Phone Number JARED [address] [place] [address] * (ABNORMAL) Vitamin D 25 hydroxy (05/22/2024 8:03 AM DIRECTOR OF ANCILLARY SERVICES) Vitamin D 25-OH 9.0(L) 30.0 - 80.0 ng/mL Blood 05/22/2024 8:03 AM DIRECTOR OF ANCILLARY SERVICES 05/22/2024 12:51 PM DIRECTOR OF ANCILLARY SERVICES Christiano Cummins MD LAB BLOOD ORDERABLES Final R esult Performing Organization Address City/[facility] Co de Phone Number JARED [address] [place] [address] * Folate (05/22/2024 8:03 AM DIRECTOR OF ANCILLARY SERVICES) Folic acid 6.0 >=5.0 ng/mL Comment:Testing performed by : [address] [address] Blood 05/22/2024 8:03 AM DIRECTOR OF ANCILLARY SERVICES 05/22/2024 9:04 AM DIRECTOR OF ANCILLARY SERVICES Christiano Cummins MD LAB BLOOD ORDERABLES Final R esult Performing Organization Address City/[facility] Co de Phone Number JARED [address] [place] [employer] [address] * eGFR (05/22/2024 5:52 AM DIRECTOR OF ANCILLARY SERVICES) eGFR >90 >=60 mL/min/1. 73 m2 Comment: Interpretive Data Reference Interval Normal >/= 90 mL/min/1.73m2 Mildly decreased* 60 - 89 mL/min/1.73m2 Mildly to moderately decreased 45 - 59 mL/min/1.73m2 Moderately to severely decreased 30 - 44 mL/min/1.73m2 Severely decreased 15 - 29 mL/min/1.73m2 Kidney Failure < 15 mL/min/1.73m2 *Relative to young adult level Estimated glomerular filtration rate is determined by the 2020 CKD-EPI equation recommended by the National Kidney Foundation (A Unifying Approach to GFR Estimation: Recommendations of the NKF-ASK Task Force on Reassessing the Inclusion of Race in Diagnosing Kidney Disease, JASN 2020). The CKD-EPI equation should not be used for patients with unstable renal function and has not been validated in children and those over 70. Current interpretive data was last reviewed 2021. Testing performed by: [address] [place]., [address] Blood 05/22/2024 5:52 AM DIRECTOR OF ANCILLARY SERVICES 05/22/2024 6:01 AM DIRECTOR OF ANCILLARY SERVICES us Jenise Joyce NP LAB BLOOD ORDERABLES Final Re sult [facility] [address] [facility] Department [place] [address] * Differential, auto (05/22/2024 5:52 AM DIRECTOR OF ANCILLARY SERVICES) Neutrophil abs 5.2 1.5 - 6.5 K/cumm Comment:Testing performed by : [address] [address] Imm gran abs 0.0 0.0 - 0.1 K/cumm JARED Comment:Testing performed by : [address] [address] Lymphocyte abs 1.3 0.8 - 3.3 K/cumm JARED Comment:Testing performed by : [address] [address] Monocyte abs 0.7 0.2 - 0.8 K/cumm JARED Comment:Testing performed by : [address] [address] Eosinophil abs 0.1 0.0 - 0.5 K/cumm JARED Comment:Testing performed by : [address] [address] Basophil abs 0.1 0.0 - 0.1 K/cumm JARED Comment:Testing performed by : [address] [address] Neutrophil pct 70.2 % JARED Comment: Interpretive Data Percent cell count reference ranges are not reported, since discordance with absolute values may lead to misinterpretation of CBC data. Current Interpretive Data was last revised on 2017. Testing performed by: [address] [address] Imm gran pct 0.3 % JARED Comment: Interpretive Data Percent cell count reference ranges are not reported, since discordance with absolute values may lead to misinterpretation of CBC data. Current Interpretive Data was last revised on 2017. Testing performed by: [address] [address] Lymphocyte pct 17.7 % [facility] Comment: Interpretive Data Percent cell count reference ranges are not reported, since discordance with absolute values may lead to misinterpretation of CBC data. Current Interpretive Data was last revised on 2017. Testing performed by: [address] [address] Monocyte pct 8.8 % [facility] Comment: Interpretive Data Percent cell count reference ranges are not reported, since discordance with absolute values may lead to misinterpretation of CBC data. Current Interpretive Data was last revised on 2017. Testing performed by: [address] [address] Eosinophil pct 1.8 % [facility] Comment: Interpretive Data Percent cell count reference ranges are not reported, since discordance with absolute values may lead to misinterpretation of CBC data. Current Interpretive Data was last revised on 2017. Testing performed by: [address] [address] Basophil pct 1.2 % [facility] Comment: Interpretive Data Percent cell count reference ranges are not reported, since discordance with absolute values may lead to misinterpretation of CBC data. Current Interpretive Data was last revised on 2017. Testing performed by: [address] [address] Blood 05/22/2024 5:52 AM DIRECTOR OF ANCILLARY SERVICES 05/22/2024 6:01 AM DIRECTOR OF ANCILLARY SERVICES us Jenise Joyce NP LAB BLOOD ORDERABLES Final Re sult JARED PÉREZ [address] [facility] Department [place] [address] * (ABNORMAL) CBC with auto differential (05/22/2024 5:52 AM DIRECTOR OF ANCILLARY SERVICES) WBC 7.4 3.8 - 9.9 K/cumm Comment:Testing performed by : [address], [address] Hgb 11.6(L) 11.9 - 15.5 g/dL JARED Comment:Testing performed by : [address], [address] Hct 37.4 35.6 - 45.5 % JARED Comment:Testing performed by : [address], [address] Plt 278 150 - 400 K/cumm JARED Comment:Testing performed by : [address], [address] MPV 9.2 9.1 - 12.3 fL JARED Comment:Testing performed by : [address], [address] RBC 4.85 3.90 - 5.20 M/cumm JARED Comment:Testing performed by : [address], [address] MCV 77.1(L) 81.3 - 96.4 fL JARED Comment:Testing performed by : [address], [address] MCH 23.9(L) 27.1 - 33.3 pg JARED Comment:Testing performed by : [address], [address] MCHC 31.0(L) 32.3 - 35.7 g/dL JARED Comment:Testing performed by : [address], [address] RDW CV 15.2(H) 11.1 - 14.9 % JARED Comment:Testing performed by : [address], [address] RDW SD 42.2 35.7 - 48.1 fL JARED Comment:Testing performed by : [address], [address] NRBC abs 0.00 0.00 - 0.01 K/cumm JARED Comment:Testing performed by : [address], [address] Blood 05/22/2024 5:52 AM DIRECTOR OF ANCILLARY SERVICES 05/22/2024 6:01 AM DIRECTOR OF ANCILLARY SERVICES Jenise Joyce NP LAB BLOOD ORDERABLES Final Re sult Performing Organization Address [facility] Co de Phone Number [address] [address] * CRP (acute phase) (05/22/2024 5:52 AM DIRECTOR OF ANCILLARY SERVICES) CRP 1.8 <=10.0 mg/L Comment:Testing performed by : [address] [address] Blood 05/22/2024 5:52 AM DIRECTOR OF ANCILLARY SERVICES 05/22/2024 6:01 AM DIRECTOR OF ANCILLARY SERVICES Christiano Cummins MD LAB BLOOD ORDERABLES Final R esult Performing Organization Address [facility] Co de Phone Number [address] [address] * Magnesium (05/22/2024 5:52 AM DIRECTOR OF ANCILLARY SERVICES) Magnesium 2.2 1.4 - 2.5 mg/dL Comment:Testing performed by : [address] [address] Blood 05/22/2024 5:52 AM DIRECTOR OF ANCILLARY SERVICES 05/22/2024 6:01 AM DIRECTOR OF ANCILLARY SERVICES Christiano Cummins MD LAB BLOOD ORDERABLES Final R esult Performing Organization Address [facility] Co de Phone Number [address] [address] * Ferritin (05/22/2024 5:52 AM DIRECTOR OF ANCILLARY SERVICES) Ferritin 18 15 - 150 ng/mL Comment:Testing performed by : [address] [address] Blood 05/22/2024 5:52 AM DIRECTOR OF ANCILLARY SERVICES 05/22/2024 6:01 AM DIRECTOR OF ANCILLARY SERVICES us Christiano Cummins MD LAB BLOOD ORDERABLES Final R esult JARED PÉREZ [address] [facility] Department [place] [address] * Basic metabolic panel (05/22/2024 5:52 AM DIRECTOR OF ANCILLARY SERVICES) Sodium 139 135 - 145 mmol/L Comment:Testing performed by : [address] [address] Potassium, pl 4.0 3.3 - 4.9 mmol/L JARED Comment:Testing performed by : [address] [address] Chloride 107 97 - 110 mmol/L JARED Comment:Testing performed by : [address] [address] CO2 25 22 - 32 mmol/L JARED Comment:Testing performed by : [address] [address] Anion gap 7 2 - 15 mmol/L JARED Comment:Testing performed by : [address] [address] BUN 12 6 - 25 mg/dL JARED Comment:Testing performed by : [address] [address] Creatinine 0.70 0.60 - 1.10 mg/dL JARED Comment:Testing performed by : [address] [address] Glucose 106 70 - 199 mg/dL JARED Comment: Interpretive Data Fasting glucose >/= 126 mg/dl is diagnostic for diabetes. Fasting is defined as no caloric intake for at least 8 hours. Fasting glucose between 100 mg/dl to 125 mg/dl is diagnostic of prediabetes. In a patient with classic symptoms of hyperglycemia or hyperglycemic crisis, a random glucose >/= 200 mg/dl is diagnostic for diabetes. In the absence of unequivocal hyperglycemia, results should be confirmed by repeat testing. The classification and Diagnosis of Diabetes Diabetes Care 202; 46: S19-S40. Current interpretive data was last revised 2022. Testing performed by: [facility], [address] [place] [address]., [address] Calcium 9.7 8.5 - 10.3 mg/dL JARED PÉREZ Comment:Testing performed by : [address] [address] Blood 05/22/2024 5:52 AM DIRECTOR OF ANCILLARY SERVICES 05/22/2024 6:01 AM DIRECTOR OF ANCILLARY SERVICES Jenise Joyce NP LAB BLOOD ORDERABLES Final Re sult Performing Organization Address [facility] Co de Phone Number [facility] [address] [facility] [place] [address] * POCT glucose (05/21/2024 7:39 PM DIRECTOR OF ANCILLARY SERVICES) [facility] Glucose, POC 120 70 - 199 mg/dL Comment:Testing performed by : [address] [address] Glucose comment 1 Use This Result JARED PÉREZ Comment:Testing performed by : [address] [address] Glucose comment 2 RN/MD Notified JARED Comment:Testing performed by : [address] [address] Blood 05/21/2024 7:39 PM DIRECTOR OF ANCILLARY SERVICES 05/21/2024 7:39 PM DIRECTOR OF ANCILLARY SERVICES Zay Toledo MD LAB POCT ORDERABLE S - DEVICE Final Result Performing Organization Address [facility] Co de Phone Number [facility] [address] [facility] [place] [address] * MRI Brain WO Contrast (05/21/2024 6:34 PM DIRECTOR OF ANCILLARY SERVICES) Anatomical Region Laterality Modality Head and Neck N/A Magnetic Resonan ce 05/21/2024 8:27 PM DIRECTOR OF ANCILLARY SERVICES Narrative 05/21/2024 8:46 PM DIRECTOR OF ANCILLARY SERVICES EXAM DESCRIPTION: MRI BRAIN WO CONTRAST REASON FOR STUDY: Neuro deficit, acute, stroke suspected Neuro deficit, acute, stroke suspected TECHNIQUE: Multiplanar imaging includes non-contrasted T1, T2, FLAIR, and diffusion with ADC map sequences. Additional sequence(s) sensitive to blood products. Images stored on PACS. COMPARISON: None available. FINDINGS: DIFFUSION IMAGING: Small focal area of restricted diffusion involving the left walters radiata/basal ganglia measuring up to 8 mm compatible with acute/subacute lacunar infarction. CEREBRUM: No acute hemorrhage or mass effect. 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 Additional small old lacunar infarcts involving the bilateral walters radiata. WHITE MATTER: As above. Additionally, there are scattered bilateral patchy subcortical and confluent periventricular supratentorial white matter T2/FLAIR hyperintensities, most compatible with moderate chronic small vessel ischemic changes. POSTERIOR FOSSA: Brainstem and cerebellum appear unremarkable. EXTRAAXIAL SPACES: No hemorrhage. No mass. BRAIN VOLUME: The ventricles and sulci are mildly enlarged commensurate with global cerebral parenchymal volume loss. PITUITARY: Unremarkable. VASCULATURE: No flow disturbance identified. ORBITS: No masses. Globes normal. PARANASAL SINUSES AND MASTOIDS: Well-aerated with no fluid levels. No mucosa thickening. OTHER: No other significant finding. IMPRESSION: 1. Small acute/subacute lacunar infarct involving the left walters radiata/basal ganglia. 2. Additional chronic findings; as detailed. Acute findings were discussed with DILSHAD Jones by Dr. Barrera at 8:45 p.m. on 05/21/2024 by telephone. THIS IS AN ELECTRONICALLY VERIFIED FINAL REPORT 05/21/2024 8:46 PM - Electronically signed by Johnie Barrera M.D. MF: VENUS Report ID: [id number] Reading Location: [id number] Procedure Note Johnie Barrera, - 05/21/2024 EXAM DESCRIPTION: MRI BRAIN WO CONTRAST REASON FOR STUDY: Neuro deficit, acute, stroke suspected Neuro deficit, acute, stroke suspected TECHNIQUE: Multiplanar imaging includes non-contrasted T1, T2, FLAIR, and diffusion with ADC map sequences. Additional sequence(s) sensitive toblood products. Images stored on PACS. COMPARISON: None available. FINDINGS: DIFFUSION IMAGING: Small focal area of restricted diffusion involving the left walters radiata/basal ganglia measuring up to 8 mm compatible with acute/subacute lacunar infarction. CEREBRUM: No acute hemorrhage or mass effect. 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 Additional small old lacunar infarcts involving the bilateral walters radiata. WHITE MATTER: As above. Additionally, there are scattered bilateralpatchy subcortical and confluent periventricular supratentorial white matterT2/FLAIR hyperintensities, most compatible with moderate chronic small vesselischemic changes. POSTERIOR FOSSA: Brainstem and cerebellum appear unremarkable. EXTRAAXIAL SPACES: No hemorrhage. No mass. BRAIN VOLUME: The ventricles and sulci are mildly enlarged commensuratewith global cerebral parenchymal volume loss. PITUITARY: Unremarkable. VASCULATURE: No flow disturbance identified. ORBITS: No masses. Globes normal. PARANASAL SINUSES AND MASTOIDS: Well-aerated with no fluid levels. Nomucosa thickening. OTHER: No other significant finding. IMPRESSION: 1. Small acute/subacute lacunar infarct involving the left walters radiata/basal ganglia. 2. Additional chronic findings; as detailed. Acute findings were discussed with DILSHAD Jones by Dr. Barrera at 8:45 p.m. on 05/21/2024 by telephone. THIS IS AN ELECTRONICALLY VERIFIED FINAL REPORT 05/21/2024 8:46 PM - Electronically signed by Johnie Barrera M.D. MF: VENUS Report ID: [id number] Reading Location: [id number] us Jenise Joyce NP IMG MRI PROCEDURES Final Resu lt * CT Body Outside Reference (05/21/2024 4:52 PM DIRECTOR OF ANCILLARY SERVICES) Narrative JENELLE_[email or web address] - 05/21/2024 4:52 PM DIRECTOR OF ANCILLARY SERVICES This order has been auto-finalized and does not contain a result. us Provider Transcribed Order IMG CT PROCEDURES Fin al Result [email or web address] * CT Body Outside Reference (05/21/2024 4:46 PM DIRECTOR OF ANCILLARY SERVICES) Narrative ROSALIND_KRISTOFER_MHE - 05/21/2024 4:46 PM DIRECTOR OF ANCILLARY SERVICES This order has been auto-finalized and does not contain a result. us Provider Transcribed Order IMG CT PROCEDURES Fin al Result Performing Organization Address [facility] de Phone Number [email or web address] * POCT glucose (05/21/2024 4:31 PM DIRECTOR OF ANCILLARY SERVICES) Pathologist [facility] Glucose, POC 113 70 - 199 mg/dL Comment:Testing performed by : [facility], [address] [place] [address]., [address] Glucose comment 1 Use This Result JARED Comment:Testing performed by : [facility], [address] [place] [address]., [address] Glucose comment 2 RN/MD Notified JARED Comment:Testing performed by : [facility], [address] [place] [address]., [address] Blood 05/21/2024 4:31 PM DIRECTOR OF ANCILLARY SERVICES 05/21/2024 4:31 PM DIRECTOR OF ANCILLARY SERVICES Zay Toledo MD LAB POCT ORDERABLE S - DEVICE Final Result Performing Organization Address [facility] de Phone Number JARED [address] [facility] [place] [address] * eGFR (05/21/2024 3:03 PM DIRECTOR OF ANCILLARY SERVICES) eGFR 68 >=60 mL/min/1. 73 m2 Comment: Interpretive Data Reference Interval Normal >/= 90 mL/min/1.73m2 Mildly decreased* 60 - 89 mL/min/1.73m2 Mildly to moderately decreased 45 - 59 mL/min/1.73m2 Moderately to severely decreased 30 - 44 mL/min/1.73m2 Severely decreased 15 - 29 mL/min/1.73m2 Kidney Failure < 15 mL/min/1.73m2 *Relative to young adult level Estimated glomerular filtration rate is determined by the 2020 CKD-EPI equation recommended by the National Kidney Foundation (A Unifying Approach to GFR Estimation: Recommendations of the NKF-ASK Task Force on Reassessing the Inclusion of Race in Diagnosing Kidney Disease, JASN 2020). The CKD-EPI equation should not be used for patients with unstable renal function and has not been validated in children and those over 70. Current interpretive data was last reviewed 2021. Testing performed by: [address] [address] Blood 05/21/2024 3:03 PM DIRECTOR OF ANCILLARY SERVICES 05/21/2024 3:05 PM DIRECTOR OF ANCILLARY SERVICES us Jenise Joyce NP LAB BLOOD ORDERABLES Final Re sult JARED [address] [facility] [place] [address] * Differential, auto (05/21/2024 3:03 PM DIRECTOR OF ANCILLARY SERVICES) Neutrophil abs 4.0 1.5 - 6.5 K/cumm Comment:Testing performed by : [address] [address] Imm gran abs 0.0 0.0 - 0.1 K/cumm JARED Comment:Testing performed by : [address] [address] Lymphocyte abs 1.2 0.8 - 3.3 K/cumm JARED Comment:Testing performed by : [address] [address] Monocyte abs 0.6 0.2 - 0.8 K/cumm JARED Comment:Testing performed by : [address] [address] Eosinophil abs 0.2 0.0 - 0.5 K/cumm JARED Comment:Testing performed by : [address] [address] Basophil abs 0.1 0.0 - 0.1 K/cumm JARED Comment:Testing performed by : [address] [address] Neutrophil pct 66.3 % JARED Comment: Interpretive Data Percent cell count reference ranges are not reported, since discordance with absolute values may lead to misinterpretation of CBC data. Current Interpretive Data was last revised on 2017. Testing performed by: [address] [address] Imm gran pct 0.3 % JARED Comment: Interpretive Data Percent cell count reference ranges are not reported, since discordance with absolute values may lead to misinterpretation of CBC data. Current Interpretive Data was last revised on 2017. Testing performed by: [address] [address] Lymphocyte pct 19.6 % [facility] Comment: Interpretive Data Percent cell count reference ranges are not reported, since discordance with absolute values may lead to misinterpretation of CBC data. Current Interpretive Data was last revised on 2017. Testing performed by: [address] [address] Monocyte pct 9.7 % [facility] Comment: Interpretive Data Percent cell count reference ranges are not reported, since discordance with absolute values may lead to misinterpretation of CBC data. Current Interpretive Data was last revised on 2017. Testing performed by: [address] [address] Eosinophil pct 2.5 % [facility] Comment: Interpretive Data Percent cell count reference ranges are not reported, since discordance with absolute values may lead to misinterpretation of CBC data. Current Interpretive Data was last revised on 2017. Testing performed by: [address] [address] Basophil pct 1.6 % [facility] Comment: Interpretive Data Percent cell count reference ranges are not reported, since discordance with absolute values may lead to misinterpretation of CBC data. Current Interpretive Data was last revised on 2017. Testing performed by: [address] [address] Blood 05/21/2024 3:03 PM DIRECTOR OF ANCILLARY SERVICES 05/21/2024 3:05 PM DIRECTOR OF ANCILLARY SERVICES [place] ELECTROENCEPHALOGRAPHIC TECHNOLOGIST LAB BLOOD ORDERABLES Final Re sult Performing Organization Address City/[facility] Co de Phone Number JARED [address] [place] [address] * Thyroid Function Russell (05/21/2024 3:03 PM DIRECTOR OF ANCILLARY SERVICES) Pathologist [facility] TSH 1.23 0.30 - 4.20 mcIUnit/mL Comment:Testing performed by : [address] [address] Blood 05/21/2024 3:03 PM DIRECTOR OF ANCILLARY SERVICES 05/21/2024 3:05 PM DIRECTOR OF ANCILLARY SERVICES [place] ELECTROENCEPHALOGRAPHIC TECHNOLOGIST LAB BLOOD ORDERABLES Final Re sult Performing Organization Address [facility] de Phone Number JARED [facility] [place] [address] * (ABNORMAL) CBC with auto differential (05/21/2024 3:03 PM DIRECTOR OF ANCILLARY SERVICES) Pathologist [facility] WBC 6.1 3.8 - 9.9 K/cumm Comment:Testing performed by : [address] [address] Hgb 11.8(L) 11.9 - 15.5 g/dL JARED PÉREZ Comment:Testing performed by : [address] [address] Hct 37.7 35.6 - 45.5 % JARED PÉREZ Comment:Testing performed by : [address] [address] Plt 291 150 - 400 K/cumm JARED PÉREZ Comment:Testing performed by : [address] [address] MPV 9.4 9.1 - 12.3 fL JARED PÉREZ Comment:Testing performed by : [address] [address] RBC 4.86 3.90 - 5.20 M/cumm JARED PÉREZ Comment:Testing performed by : [address] [address] MCV 77.6(L) 81.3 - 96.4 fL JARED Comment:Testing performed by : [address] [address] MCH 24.3(L) 27.1 - 33.3 pg JARED PÉREZ Comment:Testing performed by : [address] [address] MCHC 31.3(L) 32.3 - 35.7 g/dL JARED Comment:Testing performed by : [address] [address] RDW CV 15.3(H) 11.1 - 14.9 % JARED Comment:Testing performed by : [address] [address] RDW SD 42.9 35.7 - 48.1 fL JARED Comment:Testing performed by : [address] [address] NRBC abs 0.00 0.00 - 0.01 K/cumm JARED Comment:Testing performed by : [address] [address] Blood 05/21/2024 3:03 PM DIRECTOR OF ANCILLARY SERVICES 05/21/2024 3:05 PM DIRECTOR OF ANCILLARY SERVICES Jenise Joyce NP LAB BLOOD ORDERABLES Final Re sult JARED [address] [facility] Department of Laboratories [place], [place] [id number] * (ABNORMAL) Hemoglobin A1c (05/21/2024 3:03 PM DIRECTOR OF ANCILLARY SERVICES) Hgb A1C 6.7(H) 4.0 - 5.6 % Comment:Testing performed by : [address] [address] Estimated Average Glucose 146 mg/dL JARED PÉREZ Comment: The ADA recommends reporting an estimated Average Glucose (eAG) with all Hemoglobin A1c results using the equation derived from a study of 507 normal and diabetic adults. Minority populations were underrepresented and children were not included. (Diabetes Care 31:4772-1066, 2008). The eAG is not equivalent to a fasting glucose. Testing performed by: [address] [address] Blood 05/21/2024 3:03 PM DIRECTOR OF ANCILLARY SERVICES 05/21/2024 3:05 PM DIRECTOR OF ANCILLARY SERVICES Jenise Joyce NP LAB BLOOD ORDERABLES Final Re sult JARED [address] [facility] Department [place] [address] * Lipid panel (05/21/2024 3:03 PM DIRECTOR OF ANCILLARY SERVICES) Cholesterol 167 30 - 199 mg/dL Comment: Interpretive Data Ages < or = 19 years Acceptable: <170 mg/dL Borderline high: 170-199 mg/dL High: >or= 200 mg/dL Ages > or = 20 years Desirable: <200 mg/dL Borderline high: 200-239 mg/dL High: >or= 240 mg/dL Literature References: 1. Expert Panel on Integrated Guidelines for Cardiovascular Health and Risk Reduction in Children and Adolescents. Pediatrics 2011;128:S213 2. NCEP Expert Panel. Circulation 2004;110:227 Current Interpretive Data was last revised on 2017. Testing performed by: [facility], [address] [place] [address]., [address] Triglycerides 100 <=149 mg/dL JARED PÉREZ Comment: Interpretive Data Ages < or = 9 years Acceptable: <75 mg/dL Borderline high: 75-99 mg/dL High: >or= 100 mg/dL Ages 10 to 20 years Acceptable: <90 mg/dL Borderline high: 90-129 mg/dL High: >or= 130 mg/dL Ages > or = 20 years Desirable: <150 mg/dL Borderline high: 150-199 mg/dL High: 200-499 mg/dL Very high: >or= 499 mg/dL Literature References: 1. Expert Panel on Integrated Guidelines for Cardiovascular Health and Risk Reduction in Children and Adolescents. Pediatrics 2011;128:S213 2. NCEP Expert Panel. Circulation 2004;110:227 Current Interpretive Data was last revised on 2017. Testing performed by: [facility], [address] [place] [address]., [address] HDL 44 >=40 mg/dL JARED PÉREZ Comment: Interpretive Data Ages < or = 19 years Acceptable: >45 mg/dL Borderline low: 40-45 mg/dL Low: <40 mg/dL Ages > or = 20 years Desirable: >or= 60 mg/dL Low: <40 mg/dL Literature References: 1. Expert Panel on Integrated Guidelines for Cardiovascular Health and Risk Reduction in Children and Adolescents. Pediatrics 2011;128:S213 2. NCEP Expert Panel. Circulation 2004;110:227 Current Interpretive Data was last revised on 2017. Testing performed by: [facility], [address] [place] [address]., [address] LDL, calculated 105 <=129 mg/dL JARED PÉREZ Comment: Interpretive Data Ages < or = 19 years Acceptable: <110 mg/dL Borderline high: 110-129 mg/dL High: >or= 130 mg/dL Ages > or = 20 years Optimal: <100 mg/dL Near optimal: 100-129 mg/dL Borderline high: 130-159 mg/dL High: >160 mg/dL Calculated using the Garcia LDL-C estimating equation. This equation was implemented on 2023. Prior to this date LDL-C was estimated using the Friedewald equation. Literature References: 1. Expert Panel on Integrated Guidelines for Cardiovascular Health and Risk Reduction in Children and Adolescents. Pediatrics 2011;128:S213 2. NCEP Expert Panel. Circulation 2004;110:227 3. Garcia Miller al. JESSI Cardiol. 2019August 31;5(5):540-548. doi: 10.1001/[email or web address] Current Interpretive Data was last revised on 2023. Testing performed by: [facility], [address] [place] [address]., [address] Non-HDL Cholesterol 123 mg/dL JARED PÉREZ Comment: Interpretive Data Ages < or = 19 years Acceptable: <120 mg/dL Borderline high: 120-144 mg/dL High: >145 mg/dL Ages > or = 20 years When triglycerides are >200 mg/dL, Non-HDL cholesterol is a secondary target of therapy with treatment goals that are 30 mg/dL greater than the LDL cholesterol target. Literature References: 1. Expert Panel on Integrated Guidelines for Cardiovascular Health and Risk Reduction in Children and Adolescents. Pediatrics 2011;128:S213 2. NCEP Expert Panel. Circulation 2004;110:227 Current Interpretive Data was last revised on 2017. Testing performed by: [address] [address] Chol/HDL ratio 4 JARED Comment:Testing performed by : [address] [address] Blood 05/21/2024 3:03 PM DIRECTOR OF ANCILLARY SERVICES 05/21/2024 3:05 PM DIRECTOR OF ANCILLARY SERVICES us Jenise Joyce NP LAB BLOOD ORDERABLES Final Re sult JARED [address] [facility] Department [place] [address] * Basic metabolic panel (05/21/2024 3:03 PM DIRECTOR OF ANCILLARY SERVICES) Sodium 140 135 - 145 mmol/L Comment:Testing performed by : [address] [address] Potassium, pl 4.1 3.3 - 4.9 mmol/L JARED Comment:Testing performed by : [address] [address] Chloride 107 97 - 110 mmol/L JARED Comment:Testing performed by : [address] [address] CO2 24 22 - 32 mmol/L JARED Comment:Testing performed by : [address] [address] Anion gap 9 2 - 15 mmol/L JARED Comment:Testing performed by : [address] [address] BUN 12 6 - 25 mg/dL JARED Comment:Testing performed by : [address] [address] Creatinine 0.90 0.60 - 1.10 mg/dL JARED Comment:Testing performed by : [address] [address] Glucose 99 70 - 199 mg/dL JARED Comment: Interpretive Data Fasting glucose >/= 126 mg/dl is diagnostic for diabetes. Fasting is defined as no caloric intake for at least 8 hours. Fasting glucose between 100 mg/dl to 125 mg/dl is diagnostic of prediabetes. In a patient with classic symptoms of hyperglycemia or hyperglycemic crisis, a random glucose >/= 200 mg/dl is diagnostic for diabetes. In the absence of unequivocal hyperglycemia, results should be confirmed by repeat testing. The classification and Diagnosis of Diabetes Diabetes Care 2021; 46: S19-S40. Current interpretive data was last revised 2022. Testing performed by: [facility], [address] [place] [address]., [address] Calcium 9.6 8.5 - 10.3 mg/dL JARED Comment:Testing performed by : [address] [address] Blood 05/21/2024 3:03 PM DIRECTOR OF ANCILLARY SERVICES 05/21/2024 3:05 PM DIRECTOR OF ANCILLARY SERVICES us Jenise Joyce NP LAB BLOOD ORDERABLES Final Re sult Performing Organization Address City/[facility] Co de Phone Number JARED [address] [facility] Department [place] [address] * CT Body Outside Reference (05/20/2024 12:00 AM DIRECTOR OF ANCILLARY SERVICES) Narrative JENELLE_[email or web address] - 05/21/2024 4:53 PM DIRECTOR OF ANCILLARY SERVICES This order has been auto-finalized and does not contain a result. us Provider Transcribed Order IMG CT PROCEDURES Fin al Result Performing Organization Address City/[facility] Co de Phone Number RAD_CLARIO_MHB_MHE from Last 3 Months Insurance [employer] S[employer]IOR [employer] MEDICARE [id number] MEDICARE ADVANTAGE [facility] [address] Advance Directives For more information, please contact: [phone] * Full Code (Latest Code Status on File) Date Activated Date Inactivated Comments 05/21/2024 3:27 PM 05/25/2024 7:46 PM 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
--- OUTSIDE RECORDS SUMMARY | 2024-08-09 10:54 | XMS_ITS | Data Portability ---
[facility] Organization [facility] [address] [facility] [place] [address] Care Team Providers Care Medicare Interviewer Name Role Phone NOEL ORDAZ Primary Care Provider Assessment Encounter Date Assessment Date Assessment LastModified by Organization Details LastModified Time 10/26/2023 10/26/2023 continue current therapy over the counter fluticasone and she can also use some Gely but not Gely D she will be set up for a diabetic eye exam I think that the Eustachian tube dysfunction may take a week or 2 to settle down Not available 11/07/2023 20:11:20 01/25/2024 01/25/2024 He had a colonoscopy in 2021 with some diverticulosis that was seen blood work will be ordered she needs to get her mammogram up-to-date increase fluids and fiber. Back off salt and processed foods and we will see if the blood pressure comes down a little bit stop the ibuprofen because of the blood in stool I will see her in 6 weeks consider colonoscopies [email or web address] Not available 02/20/2024 20:14:29 03/03/2024 03/03/2024 last colonoscopy 2021 diverticulosis without bleeding. She was recommended to consider having another 1 since she had some blood in her stool but she says that since it has stopped she does not want to pursue. A blood pressure 132/70 so she will stay off the ibuprofen he needs a podiatry referral for a foot examination because of her diabetes follow up 3 months [email or web address] Not available 03/04/2024 16:49:35 04/07/2024 04/07/2024 the importance o f taking her medications daily could not be stressed enough. To help prevent end-organ damage and a multitude of organ systems that can lead to heart attack stroke all of which can lead to sudden her chronic medical illness she will restart her medicines on a daily basis and she will come get her blood pressure checked in a couple of weeks last blood work has been reviewed has an appointment with ball worker for comprehensive foot exam 04/11/2024. Offered her home ambulatory blood pressure monitoring through our program and she declined Not available 04/08/2024 14:36:02 06/23/2024 06/23/2024 I will see her back 2 months we will continue current therapy refill the amlodipine 5 mg daily significance of her findings discussed see me in 2 months hospital records reviewed [email or web address] Not available 06/24/2024 21:05:01 Plan of Treatment Reminders Order Date Submit Date Provider Last Modified By Organization Details Last Modified Time Details Appointments ANY 15 2024 10:00A Pilar Ordaz MD Not available Not available Not available Lab HbA1c (hemoglob in A1c), blood 2023 024 [facility], [address], [place], [address], 01/26/2024 06:20:12 lipid panel, serum 2023 024 [facility], [address], [place], [address], 01/26/2024 06:20:11 CBC w/ auto diff 2023 024 [facility], [address], [place], [address], 01/26/2024 06:20:13 CMP, serum or plasma 2023 024 [facility], [address], [place], [address], 01/26/2024 06:20:12 Referral podiatris t referral 2023 024 cruz Hernandez DPM, [address], [address], [place], [address], 07/28/2024 16:26:06 diabetic ophthalmo logy referral 2023 024 [facility], [address] [place], [place] [address], [place], [address], 11/15/2023 09:44:53 Procedures None recorded. Surgeries None recorded. Imaging None recorded. Medication Orders amlodipin e 5 mg tablet 2024 025 [facility], [address] [place] [address], [place], [address], 06/23/2024 12:47:57 Patient TargetsNo targets recorded. Patient Instructions Encounter Date Encounter Id Patient Instructions Last Modified By Organization Details Last Modified Time 10/26/2023 [id number] A healthy lifestyle: care instructions [email or web address] Not available 10/26/2023 13:25:15 01/25/2024 [id number] A healthy lifestyle: care instructions [email or web address] Not available 01/25/2024 11:21:41 06/23/2024 [id number] A healthy lifestyle: care instructions [email or web address] Not available 06/23/2024 12:47:57 Reason for Referral Diabetic Ophthalmology Refer ral for Type 2 diabetes mellitus Referring Physician: Noel Ordaz, Internal Medicine, Encounter Date: 10/26/2023 Preventative Maintenance Technician Referral for Type 2 diabetes mellitus Referring Physician: Noel Ordaz, Internal Medicine, Encounter Date: 03/03/2024 Results Created Date Observation Date Name Description Value Unit Range Abnormal Flag Note LastModifiedBy Organization Detail LastModifiedTime 01/25/2001/26/2024 LIPID PANEL cholesterol, total 176 mg/dL 100-19 9 Not Available [facility] ([facility]) [address] [facility], [place], [address], 01/26/2024 06:20:11 01/25/20 24 01/26/2024 LIPID PANEL triglyceride s 91 mg/dL 0-149 Not Available [facility] ([facility]) [address] [facility], [place], [address], 01/26/2024 06:20:11 01/25/20 24 01/26/2024 LIPID PANEL HDL cholesterol 45 mg/dL >39 Not Available [facility]) [address] [place], [address], 01/26/2024 06:20:11 01/25/20 24 01/26/2024 LIPID PANEL VLDL cholesterol patricia 17 mg/dL 5-40 Not Available [facility] ([facility]) [address] [place], [address], 01/26/2024 06:20:11 01/25/20 24 01/26/2024 LIPID PANEL LDL chol calc ([facility]) 114 mg/dL 0-99 above high normal Not Available [facility] ([facility]) [address] [place], [address], 01/26/2024 06:20:11 01/25/20 24 01/26/2024 COMP. METAB OLIC PANEL (14) glucose 134 mg/dL 70-99 above high normal Not Available [facility] ([facility]) [address] [place], [address], 01/26/2024 06:20:12 01/25/20 24 01/26/2024 COMP. METAB OLIC PANEL (14) BUN 12 mg/dL 8-27 Not Available [facility] ([facility]) [address] [place], [address], 01/26/2024 06:20:12 01/25/20 24 01/26/2024 COMP. METAB OLIC PANEL (14) creatinine 0.96 mg/dL 0.57-1 .00 Not Available [facility] ([facility]) [address] [place], [address], 01/26/2024 06:20:12 01/25/20 24 01/26/2024 COMP. METAB OLIC PANEL (14) eGFR 62 mL/mi n/1.7 3 >59 Not Available [facility] ([facility]) [address], [place], [address], 01/26/2024 06:20:12 01/25/20 24 01/26/2024 COMP. METAB OLIC PANEL (14) BUN/creatini ne ratio 13 12-28 Not Available [facility] ([facility]) [address], [place], [address], 01/26/2024 06:20:12 01/25/20 24 01/26/2024 COMP. METAB OLIC PANEL (14) sodium 139 mmol/ L 134-14 4 Not Available [facility] ([facility]) [address], [place], [address], 01/26/2024 06:20:12 01/25/20 24 01/26/2024 COMP. METAB OLIC PANEL (14) potassium 4.7 mmol/ L 3.5-5. 2 Not Available [facility] ([facility]) [address], [place], [address], 01/26/2024 06:20:12 01/25/20 24 01/26/2024 COMP. METAB OLIC PANEL (14) chloride 102 mmol/ L 96-106 Not Available [facility] ([facility]) [address] [facility], [place], [address], 01/26/2024 06:20:12 01/25/20 24 01/26/2024 COMP. METAB OLIC PANEL (14) carbon dioxide, total 22 mmol/ L 20-29 Not Available [facility] ([facility]) [address] [facility], [place], [address], 01/26/2024 06:20:12 01/25/20 24 01/26/2024 COMP. METAB OLIC PANEL (14) calcium 10.5 mg/dL 8.7-10 .3 above high normal Not Available [facility] ([facility]) [address] [facility] [place], [address], 01/26/2024 06:20:12 01/25/20 24 01/26/2024 COMP. METAB OLIC PANEL (14) protein, total 7.0 g/dL 6.0-8. 5 Not Available [facility] ([facility]) [address] [place], [address], 01/26/2024 06:20:12 01/25/20 24 01/26/2024 COMP. METAB OLIC PANEL (14) albumin 4.1 g/dL 3.8-4. 8 Not Available [facility] ([facility]) [address] [place], [address], 01/26/2024 06:20:12 01/25/20 24 01/26/2024 COMP. METAB OLIC PANEL (14) globulin, total 2.9 g/dL 1.5-4. 5 Not Available [facility] ([facility]) [address] [place], [address], 01/26/2024 06:20:12 01/25/20 24 01/26/2024 COMP. METAB OLIC PANEL (14) bilirubin, total 0.9 mg/dL 0.0-1. 2 Not Available [facility] ([facility]) [address] [place], [address], 01/26/2024 06:20:12 01/25/20 24 01/26/2024 COMP. METAB OLIC PANEL (14) alkaline phosphatase 130 IU/L 44-121 above high normal Not Available [facility] ([facility]) [address] [place], [address], 01/26/2024 06:20:12 01/25/20 24 01/26/2024 COMP. METAB OLIC PANEL (14) AST (SGOT) 13 IU/L 0-40 Not Available [facility] ([facility]) [address] [place], [address], 01/26/2024 06:20:12 01/25/20 24 01/26/2024 COMP. METAB OLIC PANEL (14) ALT (SGPT) 9 IU/L 0-32 Not Available [facility] ([facility]) [address] [facility], [place], [address], 01/26/2024 06:20:12 01/25/20 24 01/25/2024 HEMOG LOBIN A1C hemoglobin A1C 6.3 % 4.8-5. 6 above high normal Predi abete s: 5.7 - 6.4 Diabe valentino: >6.4 Glyce josé miguel contr ol for adult s with diabe valentino: <7.0 Not Available [facility] ([facility]) [address] [place], [address], 01/26/2024 06:20:12 01/25/20 24 01/25/2024 CBC WITH DIFFE RENTI AL/PL ATELE T WBC 7.9 x10e3 /uL 3.4-10 .8 Not Available [facility] ([facility]) [address] [place], [address], 01/26/2024 06:20:13 01/25/20 24 01/25/2024 CBC WITH DIFFE RENTI AL/PL ATELE T RBC 5.51 x10e6 /uL 3.77-5 .28 above high normal Not Available [facility] ([facility]) [address] [place], [address], 01/26/2024 06:20:13 01/25/20 24 01/25/2024 CBC WITH DIFFE RENTI AL/PL ATELE T hemoglobin 13.6 g/dL 11.1-1 5.9 Not Available [facility] ([facility]) [address] [place], [address], 01/26/2024 06:20:13 01/25/20 24 01/25/2024 CBC WITH DIFFE RENTI AL/PL ATELE T hematocrit 44.5 % 34.0-4 6.6 Not Available [facility] ([facility]) [address] [facility], [place], [address], 01/26/2024 06:20:13 01/25/20 24 01/25/2024 CBC WITH DIFFE RENTI AL/PL ATELE T MCV 81 fL 79-97 Not Available [facility] ([facility]) [address] [facility], [place], [address], 01/26/2024 06:20:13 01/25/20 24 01/25/2024 CBC WITH DIFFE RENTI AL/PL ATELE T MCH 24.7 pg 26.6-3 3.0 below low normal Not Available [facility] ([facility]) [address] [facility], [place], [address], 01/26/2024 06:20:13 01/25/20 24 01/25/2024 CBC WITH DIFFE RENTI AL/PL ATELE T MCHC 30.6 g/dL 31.5-3 5.7 below low normal Not Available [facility] ([facility]) [address] [facility], [place], [address], 01/26/2024 06:20:13 01/25/20 24 01/25/2024 CBC WITH DIFFE RENTI AL/PL ATELE T RDW 14.6 % 11.7-1 5.4 Not Available [facility] ([facility]) [address] [facility], [place], [address], 01/26/2024 06:20:13 01/25/2001/25/2024 CBC WITH DIFFE RENTI AL/PL ATELE T platelets 370 x10e3 /uL 150-45 0 Not Available [facility] ([facility]) [address] [facility], [place], [address], 01/26/2024 06:20:13 01/25/20 24 01/25/2024 CBC WITH DIFFE RENTI AL/PL ATELE T neutrophils 69 % notest ab. Not Available [facility] ([facility]) [address] [facility], [place], [address], 01/26/2024 06:20:13 01/25/2001/25/2024 CBC WITH DIFFE RENTI AL/PL ATELE T lymphs 17 % notest ab. Not Available [facility] ([facility]) [address] [facility], [place], [address], 01/26/2024 06:20:13 01/25/20 24 01/25/2024 CBC WITH DIFFE RENTI AL/PL ATELE T monocytes 9 % notest ab. Not Available [facility] ([facility]) [address] [facility], [place], [address], 01/26/2024 06:20:13 01/25/20 24 01/25/2024 CBC WITH DIFFE RENTI AL/PL ATELE T eos 3 % notest ab. Not Available [facility] ([facility]) [address] [facility], [place], [address], 01/26/2024 06:20:13 01/25/2001/25/2024 CBC WITH DIFFE RENTI AL/PL ATELE T basos 2 % notest ab. Not Available [facility] ([facility]) [address] [place], [address], 01/26/2024 06:20:13 01/25/2001/25/2024 CBC WITH DIFFE RENTI AL/PL ATELE T neutrophils (absolute) 5.5 x10e3 /uL 1.4-7. 0 Not Available [facility] ([facility]) [address] [place], [address], 01/26/2024 06:20:13 01/25/20 24 01/25/2024 CBC WITH DIFFE RENTI AL/PL ATELE T lymphs (absolute) 1.3 x10e3 /uL 0.7-3. 1 Not Available [facility] ([facility]) [address] [place], [address], 01/26/2024 06:20:13 01/25/20 24 01/25/2024 CBC WITH DIFFE RENTI AL/PL ATELE T monocytes(ab solute) 0.7 x10e3 /uL 0.1-0. 9 Not Available [facility] ([facility]) [address] [facility], [place], [address], 01/26/2024 06:20:13 01/25/20 24 01/25/2024 CBC WITH DIFFE RENTI AL/PL ATELE T eos (absolute) 0.3 x10e3 /uL 0.0-0. 4 Not Available [facility] ([facility]) [address] [facility], [place], [address], 01/26/2024 06:20:13 01/25/20 24 01/25/2024 CBC WITH DIFFE RENTI AL/PL ATELE T baso (absolute) 0.1 x10e3 /uL 0.0-0. 2 Not Available [facility] ([facility]) [address] [facility], [place], [address], 01/26/2024 06:20:13 01/25/20 24 01/25/2024 CBC WITH DIFFE RENTI AL/PL ATELE T immature granulocytes 0 % notest ab. Not Available [facility] ([facility]) [address] [facility], [place], [address], 01/26/2024 06:20:13 01/25/20 24 01/25/2024 CBC WITH DIFFE RENTI AL/PL ATELE T immature grans (abs) 0.0 x10e3 /uL 0.0-0. 1 Not Available [facility] ([facility]) [address] [facility], [place], [address], 01/26/2024 06:20:13 10/15/19 24 10/15/2023 XR, chest No observ ation record ed. [facility] [address] [place], [address], 10/19/2023 17:59:20 10/25/19 24 07/16/2021 colon oscop y proce dure (PROC ) No observ ation record ed. [email or web address] Not Available 2023 15:46:07 01/02/20 24 01/02/2024 XR, wrist , 3 or more view No observ ation record ed. [facility] [address] [place], [address], 01/10/2024 18:16:17 01/02/20 24 01/02/2024 XR, shoul rosemary No observ ation record ed. [facility] [address] [place], [address], 01/10/2024 18:16:46 05/20/19 25 05/20/2024 CT, head + brain , w/o contr ast No observ ation record ed. [facility] [address] [place], [address], 05/24/2024 09:07:44 05/20/19 25 05/20/2024 XR, chest , 1 view No observ ation record ed. [facility] [address] [place], [address], 05/24/2024 09:07:56 05/20/19 25 05/20/2024 CT, angio gram, head + neck, w/wo contr ast No observ ation record ed. [facility] [address] [place], [address], 05/24/2024 09:08:50 05/20/19 25 05/20/2024 CT, angio gram, head, w/wo contr ast No observ ation record ed. [facility] [address] [place], [address], 05/24/2024 09:09:18 04/01/20 2508/09/2024 CT, chest , w/o contr ast No observ ation record ed. [place] [id number] [facility] [address], [place], [address], 08/09/2024 11:34:59 08/10/1908/09/2024 CT, chest , w/o contr ast No observ ation record ed. [facility] [address], [place], [address], 08/09/2024 11:38:16 Result Notes None recorded. 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 Active 2023 Noel Ordaz MD Attn: Marielena fernandez,[address] [facility], [place], [address], [place] [facility] 4 21:21:20 Dyslipide benson 449899575 Active 2023 Noel Ordaz MD Attn: Marielena fernandez,[address] [facility], [place], [address], [place] [facility] 4 21:21:32 Nodule of lung 150100492 Active 2023 rescan 12/2023 Noel Ordaz MD Attn: Marielena fernandze,[address] [facility], [place], [address], [place] [facility] 4 21:24:01 Type 2 diabetes mellitus 07630076 Active 2023 Hermes Nichols MA null, [place] [facility] 4 11:09:11 Visual disturban ce 12643017 Active 2023 Hermes Nichols [place], [place] [facility] 4 11:09:12 Constipat ion 36618338 Active 2023 Noel Ordaz MD Attn: Marielena fernandez,[address] [facility], [place], [address], [place] [facility] 4 20:12:28 Rectal hemorrhag e 19819112 Active 2023 Noel Ordaz MD Attn: Marielena fernandez,[address] [facility], [place], [address], [place] [facility] 4 20:12:33 Closed fracture of proximal left humerus 330303809011 Active 2023 Greta Aj null, [place] [facility] 5 11:56:49 Fracture of distal end of left radius Active 2023 Greta Rocha [place], [place] [facility] 5 11:57:29 Diabetes mellitus 49086279 Active Kemi Oconnor RN null, [place] [facility] 6 13:35:10 Essential hypertens ion 27240015 Active Ivan Schaefer MD Attn: Marielena fernandez,[address] [facility], [place], [address], [place] [facility] 6 11:41:12 Problem Notes None recorded. Procedures Surgical History Date Name Laterality Status Provider Name and Address Organization Details Recorded Time 05/03/19 15 Diagnostic colonoscopy completed Shankar Moore MA [facility] 06/28/2015 14:33:09 Dilation and Curettage completed Shankar Moore [place] [facility] 06/28/2015 14:33:09 Caesarean Section completed Shankar Moore MA [facility] 06/28/2015 14:33:09 Mammogram screening completed Shankar Moore MA [facility] 06/28/2015 14:33:09 Back Surgery completed Shankar Moore MA [facility] 06/28/2015 14:33:09 Tonsillectomy completed Shankar Moore MA [facility] 06/28/2015 14:33:09 Cholecystectomy completed Shankar Moore MA [facility] 06/28/2015 14:33:09 Anesth nose/sinus surgery completed Shankar Moore MA [facility] 06/28/2015 14:33:09 Tubal Ligation completed Shankar Moore [place] [facility] 06/28/2015 14:33:09 Imaging Results Imaging Date Name Status LastModified by [facility] Details LastModified Time 10/15/2023 XR, chest completed [facility] [address] [place], [address], 10/19/2023 17:59:20 07/16/2021 colonoscopy procedure (PROC) completed [facility] Information not available 10/25/2023 15:46:07 01/02/2024 XR, wrist, 3 or more view completed [facility] [address] [place], [address], 01/10/2024 18:16:17 01/02/2024 XR, shoulder completed [facility] [address] [place], [address], 01/10/2024 18:16:46 05/20/2024 CT, head + brain, w/o contrast completed [facility] [address] [place], [address], 05/24/2024 09:07:44 05/20/2024 XR, chest, 1 view completed [facility] [address] [place], [address], 05/24/2024 09:07:56 05/20/2024 CT, angiogram, head + neck, w/wo contrast completed [facility] [address] [place], [address], 05/24/2024 09:08:50 05/20/2024 CT, angiogram, head, w/wo contrast completed [facility] [address] [place], [address], 05/24/2024 09:09:18 08/09/2024 CT, chest, w/o contrast active [address], [address], 08/09/2024 11:34:59 08/09/2024 CT, chest, w/o contrast active [facility] [address] [facility] [address], [place], [address], 08/09/2024 11:38:16 Procedure Notes None recorded. Medical Equipment None Reported. Allergies No known drug allergies Medications Name Sig Start Date Stop Date Status Note LastModified by Organization Details LastModified Time Prescriptio n - Renewal 06/29 completed Not Available Not Available Not Available celecoxib 200 mg capsule TAKE 1 CAPSULE BY MOUTH ONCE DAILY 06/29 completed Not Available Not Available Not Available cyclobenzap rine 10 mg tablet TAKE 1 TABLET BY MOUTH EVERY 8 HOURS 06/23 completed Not Available Not Available Not Available metformin 500 mg tablet Take 1 tablet twice a day by oral route. 06/29 completed Not Available Not Available Not Available atorvastati n 80 mg tablet TAKE 1 TABLET BY MOUTH ONCE DAILY active Not Available Not Available No t Available azithromyci n 250 mg tablet TAKE 2 TABLETS (500 MG) BY ORAL ROUTE ONCE DAILY FOR 1 DAY THEN 1 TABLET (250 MG) BY ORAL ROUTE ONCE DAILY FOR 4 DAYS 01/24 completed Not Available Not Available Not Available ondansetron HCl 4 mg tablet TAKE 1 TABLET BY MOUTH EVERY 6 HOURS 01/24 completed Not Available Not Available Not Available amlodipine 2.5 mg tablet TAKE 1 TABLET BY MOUTH ONCE DAILY 06/23 completed Not Available Not Available Not Available clopidogrel 75 mg tablet TAKE 1 TABLET BY MOUTH ONCE DAILY active Not Available Not Available No t Available amlodipine 5 mg tablet TAKE 1 TABLET BY MOUTH ONCE DAILY active Not Available Not Available No t Available aspirin 81 mg tablet,kathie yed release TAKE 1 TABLET BY MOUTH ONCE DAILY active Not Available Not Available No t Available quinapril 40 mg tablet Take 1 tablet every day by oral route for 30 days. 06/29 completed Not Available Not Available Not Available cephalexin 500 mg capsule TAKE 1 CAPSULE BY MOUTH 4 TIMES DAILY FOR 7 DOSES 06/23 completed Not Available Not Available Not Available metformin 1,000 mg tablet TAKE ONE TABLET BY MOUTH TWICE DAILY 06/29 completed Not Available Not Available Not Available ibuprofen 600 mg tablet TAKE 1 TABLET BY MOUTH EVERY 6 HOURS NEEDED FOR PAIN 06/23 completed Not Available Not Available Not Available methylpredn isolone 4 mg tablets in a dose pack TAKE BY MOUTH DIRECTED ON INSIDE OF PACKAGE 01/24 completed Not Available Not Available Not Available lisinopril 40 mg tablet TAKE 1 TABLET BY MOUTH ONCE DAILY 06/29 completed Not Available Not Available Not Available cefdinir 300 mg capsule TAKE 1 CAPSULE BY MOUTH TWICE DAILY FOR 7 DAYS 01/24 completed Not Available Not Available Not Available losartan 100 mg tablet TAKE 1 TABLET BY MOUTH ONCE DAILY active Not Available Not Available No t Available metformin ER 500 mg tablet,exte nded release 24 hr TAKE 1 TABLET BY MOUTH ONCE DAILY WITH SUPPER active Not Available Not Available No t Available doxycycline hyclate 100 mg tablet TAKE 1 TABLET BY MOUTH TWICE DAILY FOR 7 DAYS 06/29 completed Not Available Not Available Not Available ezetimibe 10 mg tablet TAKE 1 TABLET BY MOUTH ONCE DAILY active Not Available Not Available No t Available nitrofurant oin monohydrate /macrocryst als 100 mg capsule TAKE 1 CAPSULE BY MOUTH TWICE DAILY FOR 5 DAYS active Not Available Not Available No t Available Januvia 100 mg tablet TAKE ONE TABLET BY MOUTH ONCE DAILY 06/29 completed Not Available Not Available Not Available Vitals Date Recorded Body height Body mass index (BMI) Body weight Heart rate Body temperature Oxygen saturation Oxygen saturation in Arterial blood by Pulse oximetry Systolic blood pressure Diastolic blood pressure Provider Name and Address Organization Details Last Updated DateTime 4 167.64 cm 28.6 kg/m2 99770.6 5 g 76 /min 97.8 [degF] 97 % 97 % 122 mm[Hg] 70 mm[Hg] Estelita Gilbert [place] - [facility] 4 10:37:14 Date Recorded Body height Body mass index (BMI) Body weight Heart rate Oxygen saturation Oxygen saturation in Arterial blood by Pulse oximetry Systolic blood pressure Diastolic blood pressure Provider Name and Address Organization Details Last Updated DateTime 4 167.64 cm 27.6 kg/m2 17234.3 g 86 /min 98 % 98 % 130 mm[Hg] 90 mm[Hg] Claritza Ortiz [place] [facility] 4 10:40:56 Date Recorded Body height Body mass index (BMI) Body weight Heart rate Oxygen saturation Oxygen saturation in Arterial blood by Pulse oximetry Systolic blood pressure Diastolic blood pressure Provider Name and Address Organization Details Last Updated DateTime 4 167.64 cm 27.8 kg/m2 57549.3 2 g 68 /min 97 % 97 % 132 mm[Hg] 70 mm[Hg] Imani Ge MA [facility] 4 11:57:10 Date Recorded Body height Body mass index (BMI) Body weight Heart rate Oxygen saturation Oxygen saturation in Arterial blood by Pulse oximetry Systolic blood pressure Diastolic blood pressure Provider Name and Address Organization Details Last Updated DateTime 4 167.64 cm 27.5 kg/m2 01674.8 6 g 71 /min 98 % 98 % 160 mm[Hg] 80 mm[Hg] Jcarlos Quintana MA [facility] 4 11:56:36 Date Recorded Body height Body mass index (BMI) Body weight Heart rate Oxygen saturation Oxygen saturation in Arterial blood by Pulse oximetry Systolic blood pressure Diastolic blood pressure Provider Name and Address Organization Details Last Updated DateTime 5 167.64 cm 27.2 kg/m2 77790.6 7 g 65 /min 98 % 98 % 142 mm[Hg] 60 mm[Hg] Claritza Ortiz MA [facility] 5 09:57:47 Social History Question Answer Notes LastModified by Organizat ion Details LastModified Time Tobacco Smoking Status Former Smoker quit 2000 cigarettes Estelita Gilbert MA [facility] 10/26/2023 10:38:42 Do You Have An Advance Directive? No Information not available 06/29/2023 What Is Your Level Of Alcohol Consumption? None [email or web address] Information not available 06/28/2015 Are You Blind Or Do You Have Difficulty Seeing? Yes Information not available 01/25/2024 What Is Your Level Of Caffeine Consumption? Occasional Information not available 06/29/2023 In The 14 Days Before Symptom Onset, Have You Had Close Contact With A [facility] COVID-19 While That Case Was Ill? No Information not available 01/25/2024 In The 14 Days Before Symptom Onset, Have You Had Close Contact With A Person Who Is Under Investigation For COVID-19 While That Person Was Ill? No Information not available 01/25/2024 Have You Been To An Area Known To Be High Risk For COVID-19? No Information not available 01/25/2024 Are You Currently Employed? No Information not available 01/25/2024 Are You Deaf Or Do You Have Serious Difficulty Hearing? No Information not available 01/25/2024 What Type Of Diet Are You Following? REGULAR Information not available 01/25/2024 Are There Any Guns Present In Your Home? No Information not available 01/25/2024 What Was The Date Of Your Most Recent Tobacco Screening? 06/23/2024 Information not available 06/23/2024 What Is Your Relationship Status? Domestic Partner Information not available 06/29/2023 Do You Use Your Seat Belt Or Car Seat Routinely? Yes Information not available 06/29/2023 Do You Have Smoke And Carbon Monoxide Detectors In Your Home? Yes Information not available 06/29/2023 Do You Use Any Illicit Or Recreational Drugs? No Information not available 06/29/2023 Do You Use Sunscreen Routinely? No Information not available 06/29/2023 Has Tobacco Cessation Counseling Been Provided? Yes Information not available 06/29/2023 On What Date Was Tobacco Cessation Counseling Provided? 06/23/2024 Information not available 06/23/2024 How Many Years Have You Smoked Tobacco? 30 [email or web address] Information not available 10/26/2023 Do You Or Have You Ever Used Any Other Forms Of Tobacco Or Nicotine? No Information not available 06/29/2023 Sex: Female Functional Status Question Answer Note LastModified by Organization D etails LastModified Time Are you able to care for yourself? Yes Information n ot available 01/25/2024 Mental Status None recorded. Family History Relationship Description Onset Age of this Age Resolved Age Notes LastModified by Organization Details LastModified Time Mother Hypertensive disorder [email or web address] Not available 06/28 14:33:10 Sister Neoplasm of lung [email or web address] Not available 2023 21:19:32 Medical History Condition Response Coronary Artery Disease N Other N High Blood Pressure Y Atrial Fibrillation N Kidney or Bladder Problems N Thyroid Problems N GI Problems N Depression N COPD N Blood Clots N Skin Problems N Anemia N Heart Attack (NH) N Anxiety Disorder N Diabetes Y Muscle, Joint, or Bone Problems N Seizures/Epilepsy N Acid Reflux (GERD) N Cancer N Stroke N Asthma N Allergies N High Cholesterol Y Hepatitis N Liver Disease N Headaches N Heart Failure N Osteoporosis N Gynecological HistoryNo gynecological history recorded. Obstetrics History GPAL:G 0 P 0 0 0 0 Immunizations Vaccine Type Date Status Note Provider Nam e and Address Organization Details Recorded Time zoster recombinant 0 completed Veda Rector [place], [place] [facility] 10/25/2023 15:46:52 Influenza, high-dose, quadrivalent, PF 0 completed V[place] [facility] 10/25/2023 15:46:52 pneumococcal polysaccharide PPV23 0 completed [place]eda [place]hl [place] [facility] 10/25/2023 15:46:52 Tdap 9 completed Veda [place] [facility] 10/25/2023 15:46:52 Pneumococcal conjugate PCV 13 7 completed Veda [place] [facility] 10/25/2023 15:46:52 pneumococcal, unspecified formulation 4 completed Veda [place] [facility] 10/25/2023 15:46:52 Influenza, high-dose, trivalent, PF 7 completed Veda Rector [place] [facility] 10/25/2023 15:46:52 Influenza, high-dose, trivalent, PF 8 completed Veda [place] [facility] 10/25/2023 15:46:52 Influenza, high-dose, trivalent, PF 9 completed V[place] [facility] 10/25/2023 15:46:52 Influenza, high-dose, trivalent, PF 7 completed Veda [place] [facility] 10/25/2023 15:46:52 Influenza, split virus, trivalent, preservative 3 completed Veda nick, [facility] 10/25/2023 15:46:52 Past Encounters Encounter ID Performer Location Encounter Start Date Encounter Closed Date Diagnosis/Indication Diagnosis SNOMED-CT Code Diagnosis ICD10 Code Diagnosis Note [id number] MD Shameka Rueda (Adult Med) [address] [place] [address] [phone] 06/28/2015 13:06:05 06/28/2015 14:52:20 Diabetes mellitus 09193094 E13.65 Essential hypertension 80502044 I10 [id number] MD Shameka Santos (Adult Med) [address] [place] [address] [phone] 0 06/29/2023 09:50:25 06/29/2023 11:23:25 Essential hypertension 66120310 I10 Pain in right foot 45535 90629 99035 M79.671 Type 2 venkatesh betes mellitus 80972411 E11.9 Dyslipidemia 663309818 E 78.5 History of cerebrovascular accident 128359361 Z86.73 Nodular goiter 257719913 E04.9 Diabetes mellitus 671711 09 E11.9 Nodule of lung 044057801 R91.1 [id number] MD Shameka Santos (Adult Med) [address] [place] [address] [phone] 0 10/26/2023 10:18:13 10/26/2023 11:19:48 Type 2 diabetes mellitus 27129980 E11.9 Visual disturbance 92693 001 H53.9 Overweight 602084993 E66 .3 Dyslipidemia 795781259 E 78.5 Essential hypertension 04615759 I10 Dysfunctio n of bilateral eustachian tubes 8641781082 644863 H69.93 [id number] MD Shameka Santos (Adult Med) [address] [place] [address] [phone] 0 01/25/2024 10:19:16 01/25/2024 11:25:27 Overweight 414436292 E66.3 Rectal hemorrhage 299706 02 K62.5 Essential hypertension 88379415 I10 Diabetes mellitus 600333 09 E11.9 Constipation 21927739 K5 9.00 [id number] MD Shameka Santos (Adult Med) [address] [place] [address] [phone] 0 03/03/2024 11:13:16 03/03/2024 12:51:34 Type 2 diabetes mellitus 67647895 E11.9 Essential hypertension 53735247 I10 [id number] MD Shameka Santos (Adult Med) [address] [place] [address] [phone] 0 04/07/2024 10:47:52 04/07/2024 12:46:34 Dyslipidemia 198444000 E78.5 Type 2 venkatesh betes mellitus 02386995 E11.9 Essential hypertension 71213148 I10 [id number] MD Shameka Santos (Adult Med) [address] [place] [address] [id number] 0 06/23/2024 09:47:32 06/23/2024 10:48:20 Body mass index 25-29 - overweight 361666466 Z68.27 Overweight 429146751 E66 .3 Essential hypertension 25309991 I10 Ischemic stroke 13739440 2 I63.9 Health Concerns Section Related Observation LastModified by Organization Detai ls LastModified Time None Recorded Concern Status LastModified by Organization Details LastModified Time None Recorded Advance Directives Directive N: Payers Encounter Date Sequence Insurance Name Policy Number Policy Soto Covered Member ID Soto Member ID Guarantor Name 10/26/2023 1 [facility] (MEDICARE REPLACEMENT/A DVANTAGE - HMO) [id number] Pinky Yao [id number] Pinky Weeks 01/25/2024 1 [facility] (MEDICARE REPLACEMENT/A DVANTAGE - HMO) [id number] Pinky Yao [id number] Pinky Weeks 03/03/2024 1 [facility] (MEDICARE REPLACEMENT/A DVANTAGE - HMO) [id number] Pinky Yao [id number] Pinky Weeks 04/07/2024 1 [facility] (MEDICARE REPLACEMENT/A DVANTAGE - HMO) [id number] Pinky Yao [id number] Pinky Weeks 06/23/2024 1 [facility] (MEDICARE REPLACEMENT/A DVANTAGE - HMO) [id number] Pinky Yao [id number] Pinky Yao Notes Date Note Type Note Provider Name and Address Organization Details Recorded Time 10/26/2023 text/html she was at [facility] and she had some problems with her eyes watering in runny nose hearing a little muffledblood sugars have been up a little bit having trouble losing weight could do better with regards to intake of fat hypertension blood pressure stable Noel Ordaz MD Attn: Accounting[address] [place], [address], [place] [facility] 11/07/2023 20:11:37 01/25/2024 text/html hypertension no headache or dizziness hyperlipidemia she is taking her medication she can do better and following the diet. History of stroke that has been stable diabetes no polyphagia or polydipsia she has had a little bit of blood in her stool that is really been without pain but she has been constipated from time to time as well. Noel Ordaz MD Attn: Accounting, [address] [place], [address], [facility] - [facility] 02/20/2024 20:14:55 03/03/2024 text/html no blood in stoo l. Short interval follow up of blood pressure and she has been asymptomatic with regards to the Noel Ordaz MD Attn: Accounting, [address] [place], [address], [place] [facility] 03/04/2024 16:49:53 04/07/2024 text/html blood pressure i s 160/80 and she is not taking her blood pressure medicine on a daily basis no stroke or stroke-like symptoms no chest pain no shortness a breath. Dyslipidemia not taking medicines regularly. diabetes she was not taking anything currently watching her diet she had significant weight loss with GLP ones and had to stop them last A1c a couple of months ago was 6.3 Noel Ordaz MD Attn: Accounting, [address] [place], [address], [place] [facility] 04/08/2024 14:36:20 06/23/2024 text/html left basal gangl ia infarct workup was negative CT angiogram did not show anything specific MRI left basilar infarct 3.7 cm right lobe thyroid nodule I believe that has been biopsied in the past she is making slow improvement they did increase her amlodipine to 5 daily increase atorvastatin to 80 mg daily she is doing fine she is really upset though her young 56-year-old son is been diagnosed with terminal stomach cancer and she had a another family member pass away in the last month lots of stress Noel Ordaz MD Attn: Accounting[address] [facility], [place], [address], [facility] - [facility] 06/24/2024 21:06:03 OBGyn Episode No OBEpisode recorded.
--- OUTSIDE RECORDS SUMMARY | 2024-08-09 10:54 | XMS_ITS ---
Author Organization [employer] [facility] Care Team Providers Care Rapid Extractor Operator Name Role Phone BALA SHEA Unavailable Unavailable ALBINO CHAVEZ Unavailable Unavailable Jessica Brice Unavailable Unavailable Allergies and adverse reactions No Known Allergies Care Team Name Role Address Phone Organization Dates ALBINO CHAVEZ PCP [address] [facility] [address], [place], [address], [place] (Office): : [facility] 12/10/2020 - 12/21/2020 BALA SHEA Attending Physician [address], [place], [address], [place] (Office): [facility] 12/10/2020 - 12/21/2020 Jessica Brice Attending Physician [address], [place], [address], [place] (Office): : [facility] 12/10/2020 - 12/21/2020 Mental Status Section Date Assessment Total Score Description 12/21/2020 CAM 0 No delirium ind icated 12/17/2020 BIMS 15 cognitively int act CAM 0 No delirium ind icated PHQ-9 00 Problems Problem # Description Date of onset Resolved Date Code CodeSystem Concern Status 1 FRACTURE OF UNSPECIFIED PART OF NECK OF RIGHT FEMUR, SUBSEQUENT ENCOUNTER FOR CLOSED FRACTURE WITH ROUTINE HEALING 12/11/[address] active 2 HEMIPLEGIA AND HEMIPARESIS FOLLOWING CEREBRAL INFARCTION AFFECTING RIGHT DOMINANT SIDE 12/11/[address] active 3 HISTORY OF FALLING 12/11/[address] active 4 HYPERLIPIDEMIA, UNSPECIFIED 12/11/[address] active 5 MUSCLE WEAKNESS (GENERALIZED) 12/11/[address] active 6 NEED FOR ASSISTANCE WITH PERSONAL CARE 12/11/[address] active 7 OTHER ABNORMALITIES OF GAIT AND MOBILITY 12/11/[address] active 8 TYPE 2 DIABETES MELLITUS WITHOUT COMPLICATIONS 12/11/[address] active 9 UNSPECIFIED SEQUELAE OF UNSPECIFIED CEREBROVASCULAR DISEASE 12/11/[address] active Reason for Referral No Reasons for Referral Entered Social History Social History Observation Description Start Date End Date Code Code System Current Smoking Status Tobacco smoking consumption unknown 160656823 SNOMED CT Sex Assigned At Female 1950 35024-4 [facility] Vital Signs Code Code System Vitals Name Values and Units Timing Information 90182-0 [facility] Pain Level Value=0.0 12/22/2020 9279-1 [facility] Respiratory Rate Value=16.0 Units=/m in 12/21/2020 8462-4 [facility] Blood Pressure-Diastolic Value=67 Un its=mmHg 12/21/2020 8480-6 [facility] Blood Pressure-Systolic Pvsny=108 Un its=mmHg 12/21/2020 8310-5 [facility] Body Temperature Value=98.1 Units= F 12/21/2020 8867-4 [facility] Heart rate Value=84.0 Units=/min 92506-0 [facility] O2 % BldC Oximetry Value=94.0 Units= % 12/21/2020 15330-3 [facility] Weight Rocxj=198.1 Units=Lbs 2339-0 [facility] Blood Sugar Periy=845.0 Units=mg/dL 12/11/2020 8302-2 [facility] Height Value=65.0 Units=Inches 12/11/2020
--- OUTSIDE RECORDS SUMMARY | 2024-08-09 10:54 | XMS_ITS | Referral Summary ---
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) 05/26/2024 Orders Only [facility] [phone] Unknown, Notinfile 05/21/2024 1:14 PM LIVE STUDY MANAGER - 05/25/2024 3:41 PM LIVE STUDY MANAGER Hospital Encounter [facility] 5 Med Surg [facility] [place] [address] Zay Toledo MD Nyquist, David J., MD Smith, August Lebron MD Infarction of left basal ganglia (HCC) (Primary Dx); 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) Discharge Disposition: Discharge to an IP Rehab facility from Last 3 Months Allergies No known active allergies Medications blood [...] Units total) by mouth daily 30 tablet 5 05/25/19 26 Active atorvastatin (LIPITOR) 80 mg tablet Take 1 tablet (80 mg total) by mouth daily 30 tablet 5 11/22/19 25 Active metFORMIN (GLUCOPHAGE) 500 mg tablet Take 1 tablet (500 mg total) by mouth 2 (two) times a day with meals 60 tablet 05/25/19 26 Active Active Problems Problem Noted Date Diagnosed Date Infarction of left basal ganglia 05/22/2024 Acute stroke due to ischemia 05/22/2024 Vitamin D deficiency 05/22/2024 Overview (05/22/2024): Vitamin D 25-OH 9.0 on 05/22/24 Stroke-like symptoms 05/21/2024 Multinodular goiter 03/09/2023 Assessment & Plan (03/09/2023 12:52 PM LIVE STUDY MANAGER): Differential diagnosis would include benign nodule (macrofollicular [...] review. In addition she has an ongoing desk monitor to screen for atrial fibrillation which should be completed later this week. She will continue on aspirin therapy at this time pending completion of her outstanding tests. I will see her back thereafter. Immunizations Immunization Administration Dates Next Due Influenza, Trivalent, High D ose, Split, Preservative Free, Intramuscular 05/25/2024(Deferred: Patient Refused) Social History Tobacco Use Types Packs/Day Years Used Date Smoking Tobacco: Former Cigarettes Smokeless Tobacco: Never Tobacco Cessation:Counseling Given: Not Answered [facility] Utilities Answer Date Recorded In the past 12 months has [employer], or water [employer] threatened to shut off services in your [...] 05/22/2024 How often do you attend chur or episcopalian services? Never 05/22/2024 Do you belong to any clubs o r organizations such as religion groups, unions, fraternal or athletic groups, or [...] money to buy more. Never true 05/22/19 25 Within the past 12 months, t he [...] any time in the past 12 m [facility], were you homeless or living in a residential (including now)? No 05/22/2024 Personal Safety Answer Date Recorded Have you ever been in or are you currently in a harmful physical or emotional relationship or is someone making you feel afraid or unsafe? Denies 05/21/2024 Comments No Sex and Gender Information Value Date Recorded Sex Assigned at Not on file Legal Sex Female 8:13 PM LIVE STUDY MANAGER Gender Identity Not on file Sexual Orientation Not on file Last Filed Vital Signs Vital Sign Reading Time Taken Comments Blood Pressure 120/60 07/10/2024 9:14 AM CDT Pulse 91 07/10/2024 9:14 AM CDT Temperature 36.3 C (97.3 F) 05/25/2024 11:34 AM LIVE STUDY MANAGER Respiratory Rate 19 07/10/2024 9:14 AM CDT Oxygen Saturation 97% 07/10/2024 9:14 AM CDT Inhaled Oxygen Concentration - - Weight 74.8 kg (165 lb) 07/10/2024 9:14 AM CDT Height 165.1 cm (5' 5 ) 07/10/2024 9:14 AM CDT Body Mass Index 27.46 07/10/2024 9:14 AM CDT Plan of Treatment Not on file Procedures Procedure Name Priority Date/Time Associated Diagnosis Comments EGFR Routine 05/29/2024 6:03 AM LIVE STUDY MANAGER BASIC METABOLIC PANEL Routine 05/29/2024 6:03 AM LIVE STUDY MANAGER DIFFERENTIAL AUTO Routine 05/29/2024 6:0 3 AM LIVE STUDY MANAGER CBC WITH AUTO DIFFERENTIAL Routine 05/29/2024 6:03 AM LIVE STUDY MANAGER VITAMIN D 25 HYDROXY Routine 05/26/2024 6:13 AM LIVE STUDY MANAGER PREALBUMIN Routine 05/26/2024 6:13 AM LIVE STUDY MANAGER EGFR Routine 05/26/2024 6:13 AM LIVE STUDY MANAGER VITAMIN B12 Routine 05/26/2024 6:13 AM LIVE STUDY MANAGER COMPREHENSIVE METABOLIC PANEL Routine 05/26/2024 6:13 AM LIVE STUDY MANAGER MAGNESIUM Routine 05/26/2024 6:13 AM LIVE STUDY MANAGER PHOSPHORUS Routine 05/26/2024 6:13 AM LIVE STUDY MANAGER POCT GLUCOSE DEVICE Routine 05/25/2024 1 2:22 PM LIVE STUDY MANAGER POCT GLUCOSE DEVICE Routine 05/25/2024 7 :46 AM LIVE STUDY MANAGER EGFR Routine 05/25/2024 6:01 AM LIVE STUDY MANAGER DIFFERENTIAL AUTO Routine 05/25/2024 6:0 1 AM LIVE STUDY MANAGER CBC WITH AUTO DIFFERENTIAL Routine 05/25/2024 6:01 AM LIVE STUDY MANAGER BASIC METABOLIC PANEL Routine 05/25/2024 6:01 AM LIVE STUDY MANAGER POCT GLUCOSE DEVICE Routine 05/24/2024 8 :32 PM LIVE STUDY MANAGER POCT GLUCOSE DEVICE Routine 05/24/2024 5 :18 PM LIVE STUDY MANAGER POCT GLUCOSE DEVICE Routine 05/24/2024 1 1:59 AM LIVE STUDY MANAGER EGFR Routine 05/24/2024 7:58 AM LIVE STUDY MANAGER DIFFERENTIAL AUTO Routine 05/24/2024 7:5 8 AM LIVE STUDY MANAGER CBC WITH AUTO DIFFERENTIAL Routine 05/24/2024 7:58 AM LIVE STUDY MANAGER BASIC METABOLIC PANEL Routine 05/24/2024 7:58 AM LIVE STUDY MANAGER POCT GLUCOSE DEVICE Routine 05/24/2024 7 :42 AM LIVE STUDY MANAGER POCT GLUCOSE DEVICE Routine 05/23/2024 9 :07 PM LIVE STUDY MANAGER POCT GLUCOSE DEVICE Routine 05/23/2024 5 :55 PM LIVE STUDY MANAGER POCT GLUCOSE DEVICE Routine 05/23/2024 1 1:06 AM LIVE STUDY MANAGER POCT GLUCOSE DEVICE Routine 05/23/2024 8 :02 AM LIVE STUDY MANAGER EGFR Routine 05/23/2024 5:34 AM LIVE STUDY MANAGER DIFFERENTIAL AUTO Routine 05/23/2024 5:3 4 AM LIVE STUDY MANAGER CBC WITH AUTO DIFFERENTIAL Routine 05/23/2024 5:34 AM LIVE STUDY MANAGER BASIC METABOLIC PANEL Routine 05/23/2024 5:34 AM LIVE STUDY MANAGER POCT GLUCOSE DEVICE Routine 05/22/2024 9 :13 PM LIVE STUDY MANAGER CTA HEAD NECK W WO CONTRAST IP Routine 05/22/2024 8:04 PM LIVE STUDY MANAGER POCT GLUCOSE DEVICE Routine 05/22/2024 6 :14 PM LIVE STUDY MANAGER TRANSTHORACIC ECHO (TTE) COMPLETE W DOPPLER/CF W CONTRAST W BUBBLE Routine 05/22/2024 2:20 PM LIVE STUDY MANAGER POCT GLUCOSE DEVICE Routine 05/22/2024 1 2:48 PM LIVE STUDY MANAGER ECG 12-LEAD Routine 05/22/2024 10:35 AM LIVE STUDY MANAGER US CAROTIDS DUPLEX BILATERAL IP Routine 05/22/2024 9:28 AM LIVE STUDY MANAGER POCT GLUCOSE DEVICE Routine 05/22/2024 8 :56 AM LIVE STUDY MANAGER VITAMIN D 25 HYDROXY Timed 05/22/2024 8:03 AM LIVE STUDY MANAGER FOLATE Timed 05/22/2024 8:03 AM LIVE STUDY MANAGER IRON PROFILE W/ IBC Timed 05/22/2024 8 :03 AM LIVE STUDY MANAGER CRP (ACUTE PHASE) Routine 05/22/2024 5:5 2 AM LIVE STUDY MANAGER MAGNESIUM Routine 05/22/2024 5:52 AM LIVE STUDY MANAGER FERRITIN Routine 05/22/2024 5:52 AM LIVE STUDY MANAGER EGFR Routine 05/22/2024 5:52 AM LIVE STUDY MANAGER DIFFERENTIAL AUTO Routine 05/22/2024 5:5 2 AM LIVE STUDY MANAGER CBC WITH AUTO DIFFERENTIAL Routine 05/22/2024 5:52 AM LIVE STUDY MANAGER BASIC METABOLIC PANEL Routine 05/22/2024 5:52 AM LIVE STUDY MANAGER POCT GLUCOSE DEVICE Routine 05/21/2024 7 :39 PM LIVE STUDY MANAGER MRI BRAIN WO CONTRAST IP Routine 05/21/2024 6:[address] BODY OUTSIDE REFERENCE Routine 05/21/2024 4:[address] BODY OUTSIDE REFERENCE Routine 05/21/2024 4:46 PM LIVE STUDY MANAGER POCT GLUCOSE DEVICE Routine 05/21/2024 4 :31 PM LIVE STUDY MANAGER EGFR STAT 05/21/2024 3:03 PM LIVE STUDY MANAGER DIFFERENTIAL AUTO STAT 05/21/2024 3:0 3 PM LIVE STUDY MANAGER THYROID FUNCTION CASCADE Routine 05/21/2024 3:03 PM LIVE STUDY MANAGER HEMOGLOBIN A1C STAT 05/21/2024 3:03 PM LIVE STUDY MANAGER LIPID PANEL STAT 05/21/2024 3:03 PM LIVE STUDY MANAGER BASIC METABOLIC PANEL STAT 05/21/2024 3:03 PM LIVE STUDY MANAGER CBC WITH AUTO DIFFERENTIAL STAT 05/21/2024 3:03 [address]UDY [address] CT BODY OUTSIDE REFERENCE Routine 05/20/2024 12:00 AM LIVE STUDY MANAGER from Last 3 Months Results * eGFR (05/29/2024 6:03 AM LIVE STUDY MANAGER) eGFR 62 >=60 mL/min/1. 73 m2 JARED [...] was last reviewed 2021. Testing performed by: [address] [address] Blood 05/29/2024 6:03 AM LIVE STUDY MANAGER 05/29/2024 8:14 AM LIVE STUDY MANAGER us Notinfile Unknown LAB BLOOD ORDERABLES Final Res ult JARED [address] Department [place] [address] * Differential, auto (05/29/2024 6:03 AM LIVE STUDY MANAGER) Neutrophil abs 5.4 1.5 - 6.5 K/cumm JARED Comment:Testing performed by : [address] [address] Imm gran abs 0.0 0.0 - 0.1 K/cumm JARED PÉREZ Comment:Testing performed by : [address] [address] Lymphocyte abs 1.6 0.8 - 3.3 K/cumm JARED Comment:Testing performed by : [address] [address] Monocyte abs 0.8 0.2 - 0.8 K/cumm [facility] Comment:Testing performed by : [address] [address] Eosinophil abs 0.1 0.0 - 0.5 K/cumm [facility] Comment:Testing performed by : [address] [address] Basophil abs 0.1 0.0 - 0.1 K/cumm [facility] Comment:Testing performed by : [address] [address] Neutrophil pct 67.6 % [facility] Comment: Interpretive Data Percent cell count reference ranges are not reported, since discordance with absolute values may lead to misinterpretation of CBC data. Current Interpretive Data was last revised on 2017. Testing performed by: [address] [address] Imm gran pct 0.4 % [facility] Comment: Interpretive Data Percent cell count reference ranges are not reported, since discordance with absolute values may lead to misinterpretation of CBC data. Current Interpretive Data was last revised on 2017. Testing performed by: [address] [address] Lymphocyte pct 19.4 % [facility] Comment: Interpretive Data Percent cell count reference ranges are not reported, since discordance with absolute values may lead to misinterpretation of CBC data. Current Interpretive Data was last revised on 2017. Testing performed by: [address] [address] Monocyte pct 9.4 % [facility] Comment: Interpretive Data Percent cell count reference ranges are not reported, since discordance with absolute values may lead to misinterpretation of CBC data. Current Interpretive Data was last revised on 2017. Testing performed by: [address] [address] Eosinophil pct 1.8 % [facility] Comment: Interpretive Data Percent cell count reference ranges are not reported, since discordance with absolute values may lead to misinterpretation of CBC data. Current Interpretive Data was last revised on 2017. Testing performed by: [address] [address] Basophil pct 1.4 % JARED PÉREZ Comment: Interpretive Data Percent cell count reference ranges are not reported, since discordance with absolute values may lead to misinterpretation of CBC data. Current Interpretive Data was last revised on 2017. Testing performed by: [address] [address] Blood 05/29/2024 6:03 AM LIVE STUDY MANAGER 05/29/2024 8:14 AM LIVE STUDY MANAGER us Notinfile Unknown LAB BLOOD ORDERABLES Final Res ult JARED PÉREZ [facility] [facility] [facility] Department [place] [address] * (ABNORMAL) CBC with auto differential (05/29/2024 6:03 AM LIVE STUDY MANAGER) WBC 8.0 3.8 - 9.9 K/cumm JARED PÉREZ Comment:Testing performed by : [address] [address] Hgb 11.6(L) 11.9 - 15.5 g/dL JARED PÉREZ Comment:Testing performed by : [address] [address] Hct 36.8 35.6 - 45.5 % JARED PÉREZ Comment:Testing performed by : [address] [address] Plt 311 150 - 400 K/cumm JARED PÉREZ Comment:Testing performed by : [address] [address] MPV 9.6 9.1 - 12.3 fL JARED PÉREZ Comment:Testing performed by : [address] [address] RBC 4.75 3.90 - 5.20 M/cumm JARED PÉREZ Comment:Testing performed by : [address] [address] MCV 77.5(L) 81.3 - 96.4 fL JARED PÉREZ Comment:Testing performed by : [address] [address] MCH 24.4(L) 27.1 - 33.3 pg JARED PÉREZ Comment:Testing performed by : [address] [address] MCHC 31.5(L) 32.3 - 35.7 g/dL JARED PÉREZ Comment:Testing performed by : [address] [address] RDW CV 15.6(H) 11.1 - 14.9 % JARED PÉREZ Comment:Testing performed by : [address], [place]., [address] RDW SD 42.9 35.7 - 48.1 fL JARED PÉREZ Comment:Testing performed by : [address] [address] NRBC abs 0.00 0.00 - 0.01 K/cumm JARED PÉREZ Comment:Testing performed by : [address] [address] Blood 05/29/2024 6:03 AM LIVE STUDY MANAGER 05/29/2024 8:14 AM LIVE STUDY MANAGER us Notinfile Unknown LAB BLOOD ORDERABLES Final Res ult JARED PÉREZ [address] [place] [address] Department [place] [address] * (ABNORMAL) Basic metabolic panel (05/29/2024 6:03 AM LIVE STUDY MANAGER) Sodium 138 135 - 145 mmol/L JARED PÉREZ Comment:Testing performed by : [address] [address] Potassium, pl 4.2 3.3 - 4.9 mmol/L JARED PÉREZ Comment:Testing performed by : [address] [address] Chloride 108 97 - 110 mmol/L JARED PÉREZ Comment:Testing performed by : [address] [address] CO2 20(L) 22 - 32 mmol/L JARED PÉREZ Comment:Testing performed by : [address] [address] Anion gap 10 2 - 15 mmol/L JARED Comment:Testing performed by : [address] [address] BUN 13 6 - 25 mg/dL JARED Comment:Testing performed by : [address] [address] Creatinine 0.96 0.60 - 1.10 mg/dL JARED Comment:Testing performed by : [address] [address] Glucose 91 70 - 199 mg/dL JARED Comment: Interpretive [...] was last revised 2022. Testing performed by: [address] [address] Calcium 10.0 8.5 - 10.3 mg/dL JARED Comment:Testing performed by : [address] [address] Blood 05/29/2024 6:03 AM LIVE STUDY MANAGER 05/29/2024 8:14 AM LIVE STUDY MANAGER us Notinfile Unknown LAB BLOOD ORDERABLES Final Res ult JARED [address] [facility] Department [place] [address] * eGFR (05/26/2024 6:13 AM LIVE STUDY MANAGER) eGFR 78 >=60 mL/min/1. 73 m2 JARED Comment: Interpretive Data Reference Interval Normal >/= [...] was last reviewed 2021. Testing performed by: [facility], [address] [place] [address]., [address] Blood 05/26/2024 6:13 AM LIVE STUDY MANAGER 05/26/2024 8:39 AM LIVE STUDY MANAGER us Notinfile Unknown LAB BLOOD ORDERABLES Final Res ult [address] [place] [place] [address] * (ABNORMAL) Vitamin D 25 hydroxy (05/26/2024 6:13 AM LIVE STUDY MANAGER) Vitamin D 25-OH 13.0(L) 30.0 - 80.0 ng/mL JARED Blood 05/26/2024 6:13 AM LIVE STUDY MANAGER 05/26/2024 10:19 AM LIVE STUDY MANAGER Notinfile Unknown LAB BLOOD ORDERABLES Final Res ult [address] [employer] [place] [address] * (ABNORMAL) Prealbumin (05/26/2024 6:13 AM LIVE STUDY MANAGER) Prealbumin 13.2(L) 20.0 - 40.0 mg/dL JARED Comment:Specimen is Lipemic; results may be inaccurate due to high levels of lipids. Blood 05/26/2024 6:13 AM LIVE STUDY MANAGER 05/26/2024 10:19 AM LIVE STUDY MANAGER us Notinfile Unknown LAB BLOOD ORDERABLES Final Res ult Performing Organization Address City/[facility]/ZIP Co de Phone Number JARED [address] [address] * Phosphorus (05/26/2024 6:13 AM LIVE STUDY MANAGER) Phosphorus, pl 4.1 2.3 - 4.5 mg/dL JARED Comment:Testing performed by : [address] [address] Blood 05/26/2024 6:13 AM LIVE STUDY MANAGER 05/26/2024 8:39 AM LIVE STUDY MANAGER us Notinfile Unknown LAB BLOOD ORDERABLES Final Res ult Performing Organization Address [facility] Co de Phone Number JARED [address] [address] * Magnesium (05/26/2024 6:13 AM LIVE STUDY MANAGER) Magnesium 2.5 1.4 - 2.5 mg/dL JARED Comment:Testing performed by : [address] [address] Blood 05/26/2024 6:13 AM LIVE STUDY MANAGER 05/26/2024 8:39 AM LIVE STUDY MANAGER us Notinfile Unknown LAB BLOOD ORDERABLES Final Res ult Performing Organization Address [facility] de Phone Number JARED [address] [address] * Vitamin B12 (05/26/2024 6:13 AM LIVE STUDY MANAGER) Vitamin B12 421 230 - 1,250 pg/mL JARED Comment:Testing performed by : [address] [address] Blood 05/26/2024 6:13 AM LIVE STUDY MANAGER 05/26/2024 8:39 AM LIVE STUDY MANAGER us Notinfile Unknown LAB BLOOD ORDERABLES Final Res ult [facility] [address] Department [place] [address] * (ABNORMAL) Comprehensive metabolic panel (05/26/2024 6:13 AM LIVE STUDY MANAGER) Sodium 136 135 - 145 mmol/L JARED Comment:Testing performed by : [address] [address] Potassium, pl 4.4 3.3 - 4.9 mmol/L JARED Comment:Testing performed by : [address] [address] Chloride 105 97 - 110 mmol/L JARED Comment:Testing performed by : [address] [address] CO2 21(L) 22 - 32 mmol/L JARED Comment:Testing performed by : [address] [address] Anion gap 10 2 - 15 mmol/L JARED Comment:Testing performed by : [address] [address] BUN 15 6 - 25 mg/dL JARED Comment:Testing performed by : [address] [address] Creatinine 0.80 0.60 - 1.10 mg/dL JARED Comment:Testing performed by : [address] [address] Glucose 111 70 - 199 mg/dL JARED [...] was last revised 2022. Testing performed by: [address] [address] Calcium 10.4(H) 8.5 - 10.3 mg/dL JARED Comment:Testing performed by : [address] [address] Bilirubin, total 0.6 0.1 - 1.2 mg/dL JARED Comment:Testing performed by : [address] [address] Protein, pl 6.9 6.5 - 8.5 g/dL JARED Comment:Testing performed by : [address] [address] Albumin 3.8 3.5 - 5.0 g/dL JARED Comment:Testing performed by : [address] [address] Alk phos 92 40 - 130 Units/L JARED Comment:Testing performed by : [address] [address] ALT 8 7 - 45 Units/L JARED Comment:Testing performed by : [address] [address] AST 26 10 - 45 Units/L JARED Comment:Testing performed by : [address] [address] Blood 05/26/2024 6:13 AM LIVE STUDY MANAGER 05/26/2024 8:39 AM LIVE STUDY MANAGER us Notinfile Unknown LAB BLOOD ORDERABLES Final Res ult JARED PÉREZ [address] [facility] Department [place] [address] * POCT glucose (05/25/2024 12:22 PM LIVE STUDY MANAGER) [facility] Signature Glucose, POC 146 70 - 199 mg/dL Comment:Testing performed by : [facility], [address] [place] [address]., [address] Glucose comment 1 Use This Result JARED Comment:Testing performed by : [address] [address] Glucose comment 2 RN/MD Notified JARED Comment:Testing performed by : [address] [address] Blood 05/25/2024 12:2 2 PM LIVE STUDY MANAGER 05/25/2024 12:22 PM LIVE STUDY MANAGER August Juan MD LAB POCT ORDERABLES - D EVICE Final Result Performing Organization Address [facility] Co de Phone Number JARED [address] [place] [place] [address] * POCT glucose (05/25/2024 7:46 AM LIVE STUDY MANAGER) [facility] Glucose, POC 97 70 - 199 mg/dL Comment:Testing performed by : [facility], [address] [place] [address]., [address] Glucose comment 1 Use This Result JARED Comment:Testing performed by : [address] [address] Glucose comment 2 RN/MD Notified JARED Comment:Testing performed by : [address] [address] Blood 05/25/2024 7:46 AM LIVE STUDY MANAGER 05/25/2024 7:46 AM LIVE STUDY MANAGER August Juan MD LAB POCT ORDERABLES - D EVICE Final Result Performing Organization Address City/[facility] Co de Phone Number [place] [phone] [facility] [place] [place] [address] * eGFR (05/25/2024 6:01 AM LIVE STUDY MANAGER) [facility] eGFR >90 >=60 mL/min/1. 73 m2 Comment: [...] was last reviewed 2021. Testing performed by: [address] [address] Blood 05/25/2024 6:01 AM LIVE STUDY MANAGER 05/25/2024 6:27 AM LIVE STUDY MANAGER us Jenise Joyce NP LAB BLOOD ORDERABLES Final Re sult JARED [facility] Department of Laboratories [place], [place] [id number] * Differential, auto (05/25/2024 6:01 AM LIVE STUDY MANAGER) Neutrophil abs 5.6 1.5 - 6.5 K/cumm Comment:Testing performed by : [address] [address] Imm gran abs 0.0 0.0 - 0.1 K/cumm JARED Comment:Testing performed by : [address] [address] Lymphocyte abs 1.2 0.8 - 3.3 K/cumm JARED Comment:Testing performed by : [address] [address] Monocyte abs 0.7 0.2 - 0.8 K/cumm JARED Comment:Testing performed by : [address] [address] Eosinophil abs 0.2 0.0 - 0.5 K/cumm JARED Comment:Testing performed by : [address] [address] Basophil abs 0.1 0.0 - 0.1 K/ericm JARED Comment:Testing performed by : [address] [address] Neutrophil pct 72.0 % JARED Comment: Interpretive Data Percent cell count reference ranges are not reported, since discordance with absolute values may lead to misinterpretation of CBC data. Current Interpretive Data was last revised on 2017. Testing performed by: [address] [address] Imm gran pct 0.3 % JARED Comment: Interpretive Data Percent cell count reference ranges are not reported, since discordance with absolute values may lead to misinterpretation of CBC data. Current Interpretive Data was last revised on 2017. Testing performed by: [address] [address] Lymphocyte pct 15.7 % [facility] Comment: Interpretive Data Percent cell count reference ranges are not reported, since discordance with absolute values may lead to misinterpretation of CBC data. Current Interpretive Data was last revised on 2017. Testing performed by: [address] [address] Monocyte pct 8.5 % JARED Comment: Interpretive Data Percent cell count reference ranges are not reported, since discordance with absolute values may lead to misinterpretation of CBC data. Current Interpretive Data was last revised on 2017. Testing performed by: [address] [address] Eosinophil pct 2.2 % JARED Comment: Interpretive Data Percent cell count reference ranges are not reported, since discordance with absolute values may lead to misinterpretation of CBC data. Current Interpretive Data was last revised on 2017. Testing performed by: [address] [address] Basophil pct 1.3 % JARED Comment: Interpretive Data Percent cell count reference ranges are not reported, since discordance with absolute values may lead to misinterpretation of CBC data. Current Interpretive Data was last revised on 2017. Testing performed by: [address] [address] Blood 05/25/2024 6:01 AM LIVE STUDY MANAGER 05/25/2024 6:27 AM LIVE STUDY MANAGER us Jenise Jocye NP LAB BLOOD ORDERABLES Final Re sult [facility] [address] [facility] [place] [address] * (ABNORMAL) CBC with auto differential (05/25/2024 6:01 AM LIVE STUDY MANAGER) WBC 7.8 3.8 - 9.9 K/cumm Comment:Testing performed by : [address] [address] Hgb 11.9 11.9 - 15.5 g/dL JARED Comment:Testing performed by : [address] [address] Hct 37.4 35.6 - 45.5 % JARED Comment:Testing performed by : [address] [address] Plt 315 150 - 400 K/cumm JARED Comment:Testing performed by : [address] [address] MPV 9.8 9.1 - 12.3 fL JARED Comment:Testing performed by : [address] [address] RBC 4.93 3.90 - 5.20 M/cumm JARED Comment:Testing performed by : [address] [address] MCV 75.9(L) 81.3 - 96.4 fL JARED PÉREZ Comment:Testing performed by : [address] [address] MCH 24.1(L) 27.1 - 33.3 pg JARED PÉREZ Comment:Testing performed by : [address] [address] MCHC 31.8(L) 32.3 - 35.7 g/dL JARED PÉREZ Comment:Testing performed by : [address] [address] RDW CV 15.1(H) 11.1 - 14.9 % JARED PÉREZ Comment:Testing performed by : [address] [address] RDW SD 41.2 35.7 - 48.1 fL JARED PÉREZ Comment:Testing performed by : [address] [address] NRBC abs 0.00 0.00 - 0.01 K/cumm JARED PÉREZ Comment:Testing performed by : [address] [address] Blood 05/25/2024 6:01 AM LIVE STUDY MANAGER 05/25/2024 6:27 AM LIVE STUDY MANAGER Jenise Joyce NP LAB BLOOD ORDERABLES Final Re sult Performing Organization Address City/State/[facility] Co de Phone Number JARED PÉREZ [address] [place] [address] Department [place] [address] * Basic metabolic panel (05/25/2024 6:01 AM LIVE STUDY MANAGER) Sodium 136 135 - 145 mmol/L Comment:Testing performed by : [address] [address] Potassium, pl 4.3 3.3 - 4.9 mmol/L JARED PÉREZ Comment:Testing performed by : [address] [address] Chloride 104 97 - 110 mmol/L JARED PÉRZE Comment:Testing performed by : [address] [address] CO2 22 22 - 32 mmol/L JARED PÉREZ Comment:Testing performed by : [address] [address] Anion gap 10 2 - 15 mmol/L JARED PÉREZ Comment:Testing performed by : [address] [address] BUN 12 6 - 25 mg/dL JARED PÉREZ Comment:Testing performed by : [address] [address] Creatinine 0.70 0.60 - 1.10 mg/dL JARED Comment:Testing performed by : [address] [address] Glucose 102 70 - 199 mg/dL JARED [...] was last revised 2022. Testing performed by: [address] [address] Calcium 10.2 8.5 - 10.3 mg/dL JARED Comment:Testing performed by : [address] [address] Blood 05/25/2024 6:01 AM LIVE STUDY MANAGER 05/25/2024 6:27 AM LIVE STUDY MANAGER Jenise Joyce NP LAB BLOOD ORDERABLES Final Re sult [facility] [address] [facility] Department [place] [address] * POCT glucose (05/24/2024 8:32 PM LIVE STUDY MANAGER) [facility] Signature Glucose, POC 107 70 - 199 mg/dL Comment:Testing performed by : [address] [address] Glucose comment 1 Use This Result JARED PÉREZ Comment:Testing performed by : [address] [address] Blood 05/24/2024 8:32 PM LIVE STUDY MANAGER 05/24/2024 8:32 PM LIVE STUDY MANAGER us August Juan MD LAB POCT ORDERABLES - D EVICE Final Result Performing Organization Address [facility] de Phone Number JARED [address] [place] [address] * POCT glucose (05/24/2024 5:18 PM LIVE STUDY MANAGER) Glucose, POC 103 70 - 199 mg/dL Comment:Testing performed by : [address] [address] Glucose comment 1 Use This Result JARED Comment:Testing performed by : [address] [address] Glucose comment 2 RN/MD Notified JARED Comment:Testing performed by : [address] [address] Blood 05/24/2024 5:18 PM LIVE STUDY MANAGER 05/24/2024 5:18 PM LIVE STUDY MANAGER August Juan MD LAB POCT ORDERABLES - D EVICE Final Result Performing Organization Address [facility] de Phone Number [address] [address] * POCT glucose (05/24/2024 11:59 AM LIVE STUDY MANAGER) Glucose, POC 171 70 - 199 mg/dL Comment:Testing performed by : [address] [address] Glucose comment 1 Use This Result JARED Comment:Testing performed by : [address] [address] Glucose comment 2 RN/MD Notified JARED Comment:Testing performed by : [address] [address] Blood 05/24/2024 11:5 9 AM LIVE STUDY MANAGER 05/24/2024 11:59 AM LIVE STUDY MANAGER August Juan MD LAB POCT ORDERABLES - D EVICE Final Result Performing Organization Address City/[facility] Co de Phone Number JARED [facility] [place] [address] * eGFR (05/24/2024 7:58 AM LIVE STUDY MANAGER) eGFR 77 >=60 mL/min/1. 73 m2 Comment: [...] was last reviewed 2021. Testing performed by: [address] [address] Blood 05/24/2024 7:58 AM LIVE STUDY MANAGER 05/24/2024 9:06 AM LIVE STUDY MANAGER us Jenise Joyce NP LAB BLOOD ORDERABLES Final Re sult [place] [id number] [facility] [place] [address] * Differential, auto (05/24/2024 7:58 AM LIVE STUDY MANAGER) Pathologist [facility] Neutrophil abs 5.0 1.5 - 6.5 K/cumm Comment:Testing performed by : [address] [address] Imm gran abs 0.0 0.0 - 0.1 K/cumm JARED PÉREZ Comment:Testing performed by : [address] [address] Lymphocyte abs 1.2 0.8 - 3.3 K/cumm JARED PÉREZ Comment:Testing performed by : [address] [address] Monocyte abs 0.5 0.2 - 0.8 K/cumm [facility] Comment:Testing performed by : [address] [address] Eosinophil abs 0.1 0.0 - 0.5 K/cumm [facility] Comment:Testing performed by : [address] [address] Basophil abs 0.1 0.0 - 0.1 K/cumm [facility] Comment:Testing performed by : [address] [address] Neutrophil pct 71.8 % [facility] Comment: Interpretive Data Percent cell count reference ranges are not reported, since discordance with absolute values may lead to misinterpretation of CBC data. Current Interpretive Data was last revised on 2017. Testing performed by: [address] [address] Imm gran pct 0.4 % [facility] Comment: Interpretive Data Percent cell count reference ranges are not reported, since discordance with absolute values may lead to misinterpretation of CBC data. Current Interpretive Data was last revised on 2017. Testing performed by: [address] [address] Lymphocyte pct 16.8 % [facility] Comment: Interpretive Data Percent cell count reference ranges are not reported, since discordance with absolute values may lead to misinterpretation of CBC data. Current Interpretive Data was last revised on 2017. Testing performed by: [address] [address] Monocyte pct 7.8 % [facility] Comment: Interpretive Data Percent cell count reference ranges are not reported, since discordance with absolute values may lead to misinterpretation of CBC data. Current Interpretive Data was last revised on 2017. Testing performed by: [address] [address] Eosinophil pct 1.9 % [facility] Comment: Interpretive Data Percent cell count reference ranges are not reported, since discordance with absolute values may lead to misinterpretation of CBC data. Current Interpretive Data was last revised on 2017. Testing performed by: [address] [address] Basophil pct 1.3 % JARED PÉREZ Comment: Interpretive Data Percent cell count reference ranges are not reported, since discordance with absolute values may lead to misinterpretation of CBC data. Current Interpretive Data was last revised on 2017. Testing performed by: [address] [address] Blood 05/24/2024 7:58 AM LIVE STUDY MANAGER 05/24/2024 9:08 AM LIVE STUDY MANAGER us Jenise Joyce NP LAB BLOOD ORDERABLES Final Re sult JARED [address] [facility] Department [place] [address] * (ABNORMAL) CBC with auto differential (05/24/2024 7:58 AM LIVE STUDY MANAGER) Pathologist [facility] WBC 7.0 3.8 - 9.9 K/cumm Comment:Testing performed by : [address] [address] Hgb 12.1 11.9 - 15.5 g/dL JARED PÉREZ Comment:Testing performed by : [address] [address] Hct 37.8 35.6 - 45.5 % JARED PÉREZ Comment:Testing performed by : [address] [address] Plt 318 150 - 400 K/cumm JARED Comment:Testing performed by : [address] [address] MPV 9.4 9.1 - 12.3 fL JARED PÉREZ Comment:Testing performed by : [address] [address] RBC 4.92 3.90 - 5.20 M/cumm JARED PÉREZ Comment:Testing performed by : [address] [address] MCV 76.8(L) 81.3 - 96.4 fL JARED PÉREZ Comment:Testing performed by : [address] [address] MCH 24.6(L) 27.1 - 33.3 pg JARED PÉREZ Comment:Testing performed by : [address] [address] MCHC 32.0(L) 32.3 - 35.7 g/dL JARED PÉREZ Comment:Testing performed by : [address] [address] RDW CV 15.2(H) 11.1 - 14.9 % JARED PÉREZ Comment:Testing performed by : [address] [address] RDW SD 41.7 35.7 - 48.1 fL JARED PÉREZ Comment:Testing performed by : [address] [address] NRBC abs 0.00 0.00 - 0.01 K/cumm JARED Comment:Testing performed by : [address] [address] Blood 05/24/2024 7:58 AM LIVE STUDY MANAGER 05/24/2024 9:08 AM LIVE STUDY MANAGER Jenise Joyce NP LAB BLOOD ORDERABLES Final Re sult JARED [address] [facility] Department [place] [address] * (ABNORMAL) Basic metabolic panel (05/24/2024 7:58 AM LIVE STUDY MANAGER) Sodium 136 135 - 145 mmol/L Comment:Testing performed by : [address] [address] Potassium, pl 4.7 3.3 - 4.9 mmol/L JARED PÉREZ Comment: Hemolyzed; Potassium value may be falsely elevated by as much as 1.0 mmol/L. Suggest redraw and reanalysis. Testing performed by: [address] [address] Chloride 106 97 - 110 mmol/L JARED PÉREZ Comment:Testing performed by : [address] [address] CO2 20(L) 22 - 32 mmol/L JARED Comment:Testing performed by : [address] [address] Anion gap 10 2 - 15 mmol/L JARED Comment:Testing performed by : [address] [address] BUN 14 6 - 25 mg/dL JARED Comment:Testing performed by : [address] [address] Creatinine 0.81 0.60 - 1.10 mg/dL JARED Comment:Testing performed by : [address] [address] Glucose 99 70 - 199 mg/dL JARED [...] was last revised 2022. Testing performed by: [address] [address] Calcium 9.9 8.5 - 10.3 mg/dL JARED Comment:Testing performed by : [address] [address] Blood 05/24/2024 7:58 AM LIVE STUDY MANAGER 05/24/2024 9:06 AM LIVE STUDY MANAGER us Jenise Joyce NP LAB BLOOD ORDERABLES Final Re sult JARED PÉREZ [address] [facility] Department of Laboratories [place], [place] [id number] * POCT glucose (05/24/2024 7:42 AM LIVE STUDY MANAGER) Glucose, POC 99 70 - 199 mg/dL Comment:Testing performed by : [address] [address] Glucose comment 1 Use This Result JARED PÉREZ Comment:Testing performed by : [address] [address] Glucose comment 2 RN/MD Notified JARED Comment:Testing performed by : [address] [address] Blood 05/24/2024 7:42 AM LIVE STUDY MANAGER 05/24/2024 7:42 AM LIVE STUDY MANAGER August Juan MD LAB POCT ORDERABLES - D EVICE Final Result Performing Organization Address City/[facility] Co de Phone Number JARED [facility]2 [facility] [place] [place] [address] * POCT glucose (05/23/2024 9:07 PM LIVE STUDY MANAGER) [facility] Signature Glucose, POC 164 70 - 199 mg/dL Comment:Testing performed by : [address] [address] Glucose comment 1 Use This Result JARED PÉREZ Comment:Testing performed by : [address] [address] Glucose comment 2 RN/MD Notified JARED Comment:Testing performed by : [address] [address] Blood 05/23/2024 9:07 PM LIVE STUDY MANAGER 05/23/2024 9:07 PM LIVE STUDY MANAGER August Juan MD LAB POCT ORDERABLES - D EVICE Final Result Performing Organization Address City/[facility]/ZIP Co de Phone Number JARED [address] [employer] [place] [address] * POCT glucose (05/23/2024 5:55 PM LIVE STUDY MANAGER) Glucose, POC 97 70 - 199 mg/dL Comment:Testing performed by : [address] [address] Glucose comment 1 Use This Result JARED Comment:Testing performed by : [address] [address] Glucose comment 2 RN/MD Notified JARED Comment:Testing performed by : [address] [address] Blood 05/23/2024 5:55 PM LIVE STUDY MANAGER 05/23/2024 5:55 PM LIVE STUDY MANAGER August Juan MD LAB POCT ORDERABLES - D EVICE Final Result Performing Organization Address [facility] Co de Phone Number JARED [facility] [place] [address] * POCT glucose (05/23/2024 11:06 AM LIVE STUDY MANAGER) Glucose, POC 191 70 - 199 mg/dL Comment:Testing performed by : [address] [address] Glucose comment 1 Use This Result JARED Comment:Testing performed by : [address] [address] Glucose comment 2 RN/MD Notified JARED Comment:Testing performed by : [address] [address] Blood 05/23/2024 11:0 6 AM LIVE STUDY MANAGER 05/23/2024 11:06 AM LIVE STUDY MANAGER August Juan MD LAB POCT ORDERABLES - D EVICE Final Result Performing Organization Address [facility] Co de Phone Number [place] [id number] [facility] [place] [address] * POCT glucose (05/23/2024 8:02 AM LIVE STUDY MANAGER) Glucose, POC 109 70 - 199 mg/dL Comment:Testing performed by : [address] [address] Glucose comment 1 Use This Result JARED Comment:Testing performed by : [address] [place]., [address] Glucose comment 2 RN/MD Notified JARED Comment:Testing performed by : [facility], [address] [place] [address]., [address] Blood 05/23/2024 8:02 AM LIVE STUDY MANAGER 05/23/2024 8:02 AM LIVE STUDY MANAGER us August Juan MD LAB POCT ORDERABLES - D EVICE Final Result Performing Organization Address [facility] Co de Phone Number JARED [address] [place] [place] [address] * eGFR (05/23/2024 5:34 AM LIVE STUDY MANAGER) eGFR >90 >=60 mL/min/1. 73 m2 Comment: [...] was last reviewed 2021. Testing performed by: [facility], [address] [place] [address]., [address] Blood 05/23/2024 5:34 AM LIVE STUDY MANAGER 05/23/2024 6:19 AM LIVE STUDY MANAGER us Jenise Joyce NP LAB BLOOD ORDERABLES Final Re sult Performing Organization Address City/[facility]/ZIP Co de Phone Number PETR[address] [place] [place] [address] * Differential, auto (05/23/2024 5:34 AM LIVE STUDY MANAGER) Neutrophil abs 5.5 1.5 - 6.5 K/cumm Comment:Testing performed by : [address] [address] Imm gran abs 0.1 0.0 - 0.1 K/cumm [facility] Comment:Testing performed by : [address] [address] Lymphocyte abs 1.6 0.8 - 3.3 K/cumm [facility] Comment:Testing performed by : [address] [address] Monocyte abs 0.8 0.2 - 0.8 K/cumm [facility] Comment:Testing performed by : [address] [address] Eosinophil abs 0.2 0.0 - 0.5 K/cumm [facility] Comment:Testing performed by : [address] [address] Basophil abs 0.1 0.0 - 0.1 K/cumm [facility] Comment:Testing performed by : [address] [address] Neutrophil pct 66.9 % [facility] Comment: Interpretive Data Percent cell count reference ranges are not reported, since discordance with absolute values may lead to misinterpretation of CBC data. Current Interpretive Data was last revised on 2017. Testing performed by: [address] [address] Imm gran pct 1.1 % [facility] Comment: Interpretive Data Percent cell count reference ranges are not reported, since discordance with absolute values may lead to misinterpretation of CBC data. Current Interpretive Data was last revised on 2017. Testing performed by: [address] [address] Lymphocyte pct 19.0 % [facility] Comment: Interpretive Data Percent cell count reference ranges are not reported, since discordance with absolute values may lead to misinterpretation of CBC data. Current Interpretive Data was last revised on 2017. Testing performed by: [address] [address] Monocyte pct 9.6 % JARED Comment: Interpretive Data Percent cell count reference ranges are not reported, since discordance with absolute values may lead to misinterpretation of CBC data. Current Interpretive Data was last revised on 2017. Testing performed by: [address] [address] Eosinophil pct 2.1 % JARED Comment: Interpretive Data Percent cell count reference ranges are not reported, since discordance with absolute values may lead to misinterpretation of CBC data. Current Interpretive Data was last revised on 2017. Testing performed by: [address] [address] Basophil pct 1.3 % JARED Comment: Interpretive Data Percent cell count reference ranges are not reported, since discordance with absolute values may lead to misinterpretation of CBC data. Current Interpretive Data was last revised on 2017. Testing performed by: [address] [address] Blood 05/23/2024 5:34 AM LIVE STUDY MANAGER 05/23/2024 6:19 AM LIVE STUDY MANAGER us Jenise Joyce NP LAB BLOOD ORDERABLES Final Re sult JARED [address] [facility] Department of Laboratories [place], [place] [id number] * (ABNORMAL) CBC with auto differential (05/23/2024 5:34 AM LIVE STUDY MANAGER) Pathologist [facility] WBC 8.2 3.8 - 9.9 K/cumm Comment:Testing performed by : [address] [address] Hgb 11.9 11.9 - 15.5 g/dL JARED PÉREZ Comment:Testing performed by : [address] [address] Hct 37.9 35.6 - 45.5 % JARED PÉREZ Comment:Testing performed by : [address] [address] Plt 295 150 - 400 K/cumm JARED PÉREZ Comment:Testing performed by : [address] [address] MPV 9.4 9.1 - 12.3 fL JARED PÉREZ Comment:Testing performed by : [address] [address] RBC 4.95 3.90 - 5.20 M/cumm JARED PÉREZ Comment:Testing performed by : [address] [address] MCV 76.6(L) 81.3 - 96.4 fL JARED Comment:Testing performed by : [address] [address] MCH 24.0(L) 27.1 - 33.3 pg JARED Comment:Testing performed by : [address] [address] MCHC 31.4(L) 32.3 - 35.7 g/dL JARED Comment:Testing performed by : [address] [address] RDW CV 15.3(H) 11.1 - 14.9 % JARED Comment:Testing performed by : [address] [address] RDW SD 42.3 35.7 - 48.1 fL JARED Comment:Testing performed by : [address] [address] NRBC abs 0.00 0.00 - 0.01 K/cumm JARED Comment:Testing performed by : [address] [address] Blood 05/23/2024 5:34 AM LIVE STUDY MANAGER 05/23/2024 6:19 AM LIVE STUDY MANAGER Jenise Joyce NP LAB BLOOD ORDERABLES Final Re sult JARED [address] [facility] Department of Laboratories [place], [place] [id number] * (ABNORMAL) Basic metabolic panel (05/23/2024 5:34 AM LIVE STUDY MANAGER) Sodium 138 135 - 145 mmol/L Comment:Testing performed by : [address], [place]., [address] Potassium, pl 4.1 3.3 - 4.9 mmol/L JARED Comment:Testing performed by : [address], [place]., [address] Chloride 107 97 - 110 mmol/L JARED Comment:Testing performed by : [address], [place]., [address] CO2 20(L) 22 - 32 mmol/L JARED Comment:Testing performed by : [address], [place]., [address] Anion gap 11 2 - 15 mmol/L JARED Comment:Testing performed by : [address], [place]., [address] BUN 13 6 - 25 mg/dL JARED Comment:Testing performed by : [address], [place]., [address] Creatinine 0.70 0.60 - 1.10 mg/dL JARED Comment:Testing performed by : [address], [place]., [address] Glucose 106 70 - 199 mg/dL JARED [...] was last revised 2022. Testing performed by: [address] [address] Calcium 9.7 8.5 - 10.3 mg/dL JARED Comment:Testing performed by : [address], [place]., [address] Blood 05/23/2024 5:34 AM LIVE STUDY MANAGER 05/23/2024 6:19 AM LIVE STUDY MANAGER us Jenise Joyce NP LAB BLOOD ORDERABLES Final Re sult Performing Organization Address [facility] Co de Phone Number JARED [address] [place] [address] * POCT glucose (05/22/2024 9:13 PM LIVE STUDY MANAGER) [facility] Signature Glucose, POC 171 70 - 199 mg/dL Comment:Testing performed by : [facility], [address] [place] [address]., [address] Glucose comment 1 Use This Result JARED Comment:Testing performed by : [address] [address] Blood 05/22/2024 9:13 PM LIVE STUDY MANAGER 05/22/2024 9:13 PM LIVE STUDY MANAGER Christiano Cummins MD LAB POCT ORDERABLES - DEVICE Final Result Performing Organization Address [facility] Co de Phone Number JARED [facility] [place] [address] * CTA Head Neck W WO Contrast (05/22/2024 8:04 PM LIVE STUDY MANAGER) Anatomical Region Laterality Modality Head and Neck N/A Computed Tomogra phy 05/22/2024 10:1 0 PM LIVE STUDY MANAGER Narrative 05/22/2024 10:25 PM LIVE STUDY MANAGER EXAM DESCRIPTION: CTA HEAD NECK W WO [...] thickening. ORBITS: No significant abnormality. INTRACRANIAL VESSE[place]: The posterior communicating arteries are not well visualized bilaterally. The fpxeqk-cw-Izwdfn is otherwise intact. ANTERIOR CIRCULATION: There is [...] by Duyen Bautista M.D. SN: Report ID: [id number] Reading Location: [id number] Procedure Note Duyen Bautista MD - 05/22/2024 [...] thickening. ORBITS: No significant abnormality. [place] [place]: The posterior communicating arteries are not wellvisualized bilaterally. The ekkccv-fk-Imoqal is otherwise intact. ANTERIOR CIRCULATION: There is [...] by Duyen Bautista M.D. SN: Report ID: [id number] Reading Location: [id number] us Amita Bledsoe MD IMG CT PROCEDURES Fin al Result * POCT glucose (05/22/2024 6:14 PM LIVE STUDY MANAGER) [facility] Glucose, POC 90 70 - 199 mg/dL Comment:Testing performed by : [facility], [address] [place] [address]., [address] Glucose comment 1 Use This Result JARED PÉREZ Comment:Testing performed by : [address] [address] Glucose comment 2 RN/MD Notified JARED PÉREZ Comment:Testing performed by : [address] [address] Blood 05/22/2024 6:14 PM LIVE STUDY MANAGER 05/22/2024 6:14 PM LIVE STUDY MANAGER Christiano Cummins MD LAB POCT ORDERABLES - DEVICE Final Result Performing Organization Address City/State/[facility] Co de Phone Number JRAED [address] [facility] Department of Laboratories [place], [place] [id number] * TRANSTHORACIC ECHO (TTE) COMPLETE W DOPPLER/CF W CONTRAST W BUBBLE (05/22/2024 2:20 PM LIVE STUDY MANAGER) Anatomical Region Laterality Modality Ultrasound 05/22/2024 1:27 PM LIVE STUDY MANAGER Narrative 05/23/2024 11:17 AM LIVE STUDY MANAGER Adult Echocardiogram + ----- + :Name: PINKY YAO Study Date: 05/22/2024 Status: MHE : : Patient Location: [address]^[id number]^MHeit: 65 in : : Weight: 170 lbBP: 161/60 mmHg: :: 1950 Gender: Female BSA: 1.8 m2 : :Reason For Study: cerebrovascular accident : :Ordering Physician: ZAHRA, : :JENISE : :Referring Physician: : :KARISHMA MARLEY : :Performed By: Clara : :ASHER Carr : + ----- + [...] bubble study shows no evidence of intracardiac naglw-kf-biat shunting, i.e. no evidence of patent foramen [...] bubble study shows no evidence of intracardiac xzyvw-hl-tpbs shunting, i.e. no evidence of patent foramen [...] Date: 05/22/2024Status: MHE : : Patient Location: [address]^[id number]^MHeight: 65 in : : : 170 lbBP: [...] bubble study shows no evidence of intracardiac nynjt-we-mzcy shunting,i.e. no evidence of patent foramen ovale [...] bubble study shows no evidence of intracardiac srjim-sh-nzpa shunting,i.e. no evidence of patent foramen ovale [...] by: Aden Hollingsworth MD 05/23/2024 11:17 AM Jenise Joyce NP CV ECHO PROCEDURES Final Resu lt * POCT glucose (05/22/2024 12:48 PM LIVE STUDY MANAGER) [facility] Glucose, POC 172 70 - 199 mg/dL Comment:Testing performed by : [address] [address] Glucose comment 1 Use This Result JARED PÉREZ Comment:Testing performed by : [address] [address] Glucose comment 2 RN/ Notified JARED PÉREZ Comment:Testing performed by : [address] [address] Blood 05/22/2024 12:4 8 PM LIVE STUDY MANAGER 05/22/2024 12:48 PM LIVE STUDY MANAGER Christiano Cummins MD LAB POCT ORDERABLES - DEVICE Final Result JARED [address] [facility] Department [place] [address] * ECG 12 lead (05/22/2024 10:35 AM LIVE STUDY MANAGER) Pathologist [facility] Ventricular Rate EKG/Min 70 BPM [facility] Atrial Rate 70 BPM [facility] [place]-Interval (MSEC) 210 ms [facility] QRS-Interval (MSEC) 92 ms [facility] QT-Interval (MSEC) 412 ms [facility] QTc 444 ms [facility] P [place] 39 degrees [facility] R [place] -9 degrees [facility] T [place] -3 degrees [facility] Diagnosis Sinus rhythm with 1st degree A-V block Moderate voltage criteria for LVH, may be normal variant Inferior infarct , age undetermined Abnormal ECG No previous ECGs available Confirmed by ASPEN RAHMAN M.D. ([id number]) on 05/23/2024 7:37:36 AM [facility] 05/22/2024 10:3 5 AM LIVE STUDY MANAGER 05/23/2024 7:37 AM LIVE STUDY MANAGER Jenise Joyce NP ECG ORDERABLES Final Result Performing Organization Address [facility] Co de Phone Number [facility] * US Carotids Duplex Bilateral (05/22/2024 9:28 AM LIVE STUDY MANAGER) Anatomical Region Laterality Modality Vascular Bilateral Ultrasound 05/22/2024 Narrative 05/26/2024 7:36 AM LIVE STUDY MANAGER Net [employer] Job ID: [id number] Net Element Document ID: [id number] Dictated date/time: [id number] BILATERAL CAROTID DUPLEX REASON FOR EXAM Stroke. [...] internal carotid arteries. Job ID/Internal Job ID: [id number] us Jenise Joyce EXCHANGE SPECIALIST IMG US PROCEDURES Final Resul t * POCT glucose (05/22/2024 8:56 AM LIVE STUDY MANAGER) Glucose, POC 105 70 - 199 mg/dL Comment:Testing performed by : [address] [address] Glucose comment 1 Use This Result JARED Comment:Testing performed by : [address], [address] Glucose comment 2 RN/MD Notified JARED PÉREZ Comment:Testing performed by : [address] [address] Blood 05/22/2024 8:56 AM LIVE STUDY MANAGER 05/22/2024 8:56 AM LIVE STUDY MANAGER Christiano Cummins MD LAB POCT ORDERABLES - DEVICE Final Result [facility] [address] [facility] Department [place] [address] * (ABNORMAL) Iron profile w/ IBC (05/22/2024 8:03 AM LIVE STUDY MANAGER) Pathologist [facility] Iron 46 35 - 145 mcg/dL Comment:Testing performed by : [address] [address] TIBC 319 250 - 400 mcg/dL JARED Comment:Testing performed by : [address] [address] Transferrin saturation 14(L) 20 - 50 % JARED Comment:Testing performed by : [address] [address] Blood 05/22/2024 8:03 AM LIVE STUDY MANAGER 05/22/2024 9:04 AM LIVE STUDY MANAGER Christiano Cummins MD LAB BLOOD ORDERABLES Final R esult Performing Organization Address City/[facility] Co de Phone Number JARED [address] [place] [address] * (ABNORMAL) Vitamin D 25 hydroxy (05/22/2024 8:03 AM LIVE STUDY MANAGER) [facility] Vitamin D 25-OH 9.0(L) 30.0 - 80.0 ng/mL Blood 05/22/2024 8:03 AM LIVE STUDY MANAGER 05/22/2024 12:51 PM LIVE STUDY MANAGER Christiano Cummins MD LAB BLOOD ORDERABLES Final R esult Performing Organization Address [facility] Co de Phone Number [address] [address] * Folate (05/22/2024 8:03 AM LIVE STUDY MANAGER) [facility] Folic acid 6.0 >=5.0 ng/mL Comment:Testing performed by : [facility], [address] [place] [address], [address] Blood 05/22/2024 8:03 AM LIVE STUDY MANAGER 05/22/2024 9:04 AM LIVE STUDY MANAGER Christiano Cummins MD LAB BLOOD ORDERABLES Final [facility] Performing Organization Address [facility] Co de Phone Number [address] [place] [address] * eGFR (05/22/2024 5:52 AM LIVE STUDY MANAGER) [facility] eGFR >90 >=60 mL/min/1. 73 m2 Comment: [...] was last reviewed 2021. Testing performed by: [address] [address] Blood 05/22/2024 5:52 AM LIVE STUDY MANAGER 05/22/2024 6:01 AM LIVE STUDY MANAGER us Jenise Joyce NP LAB BLOOD ORDERABLES Final Re sult JARED [address] [facility] Department [place] [address] * Differential, auto (05/22/2024 5:52 AM LIVE STUDY MANAGER) Neutrophil abs 5.2 1.5 - 6.5 K/cumm Comment:Testing performed by : [address] [address] Imm gran abs 0.0 0.0 - 0.1 K/cumm JARED Comment:Testing performed by : [address] [address] Lymphocyte abs 1.3 0.8 - 3.3 K/cumm JARED Comment:Testing performed by : [address] [address] Monocyte abs 0.7 0.2 - 0.8 K/cumm JARED Comment:Testing performed by : [address] [address] Eosinophil abs 0.1 0.0 - 0.5 K/cumm JARED Comment:Testing performed by : [address] [address] Basophil abs 0.1 0.0 - 0.1 K/cumm JARED Comment:Testing performed by : [address] [address] Neutrophil pct 70.2 % [facility] Comment: Interpretive Data Percent cell count reference ranges are not reported, since discordance with absolute values may lead to misinterpretation of CBC data. Current Interpretive Data was last revised on 2017. Testing performed by: [address] [address] Imm gran pct 0.3 % [facility] Comment: Interpretive Data Percent cell count reference ranges are not reported, since discordance with absolute values may lead to misinterpretation of CBC data. Current Interpretive Data was last revised on 2017. Testing performed by: [address] [address] Lymphocyte pct 17.7 % [facility] Comment: Interpretive Data Percent cell count reference ranges are not reported, since discordance with absolute values may lead to misinterpretation of CBC data. Current Interpretive Data was last revised on 2017. Testing performed by: [address] [address] Monocyte pct 8.8 % [facility] Comment: Interpretive Data Percent cell count reference ranges are not reported, since discordance with absolute values may lead to misinterpretation of CBC data. Current Interpretive Data was last revised on 2017. Testing performed by: [address] [address] Eosinophil pct 1.8 % [facility] Comment: Interpretive Data Percent cell count reference ranges are not reported, since discordance with absolute values may lead to misinterpretation of CBC data. Current Interpretive Data was last revised on 2017. Testing performed by: [address] [address] Basophil pct 1.2 % [facility] Comment: Interpretive Data Percent cell count reference ranges are not reported, since discordance with absolute values may lead to misinterpretation of CBC data. Current Interpretive Data was last revised on 2017. Testing performed by: [address] [address] Blood 05/22/2024 5:52 AM LIVE STUDY MANAGER 05/22/2024 6:01 AM LIVE STUDY MANAGER us Jenise Joyce NP LAB BLOOD ORDERABLES Final Re sult JARED [address] [facility] Department of Laboratories [place], [place] [id number] * (ABNORMAL) CBC with auto differential (05/22/2024 5:52 AM LIVE STUDY MANAGER) WBC 7.4 3.8 - 9.9 K/cumm Comment:Testing performed by : [address] [address] Hgb 11.6(L) 11.9 - 15.5 g/dL JARED Comment:Testing performed by : [address] [address] Hct 37.4 35.6 - 45.5 % JARED Comment:Testing performed by : [address] [address] Plt 278 150 - 400 K/cumm JARED Comment:Testing performed by : [address] [address] MPV 9.2 9.1 - 12.3 fL JARED Comment:Testing performed by : [address] [address] RBC 4.85 3.90 - 5.20 M/cumm JARED PÉREZ Comment:Testing performed by : [address] [address] MCV 77.1(L) 81.3 - 96.4 fL JARED Comment:Testing performed by : [address] [address] MCH 23.9(L) 27.1 - 33.3 pg JARED Comment:Testing performed by : [address] [address] MCHC 31.0(L) 32.3 - 35.7 g/dL JARED Comment:Testing performed by : [address] [address] RDW CV 15.2(H) 11.1 - 14.9 % JARED Comment:Testing performed by : [address] [address] RDW SD 42.2 35.7 - 48.1 fL JARED PÉREZ Comment:Testing performed by : [facility], [address] [place] [address]., [address] NRBC abs 0.00 0.00 - 0.01 K/cumm JARED PÉREZ Comment:Testing performed by : [address] [address] Blood 05/22/2024 5:52 AM LIVE STUDY MANAGER 05/22/2024 6:01 AM LIVE STUDY MANAGER Jenise Joyce NP LAB BLOOD ORDERABLES Final Re sult Performing Organization Address [facility] Co de Phone Number [place] [id number] [facility] [place] [address] * CRP (acute phase) (05/22/2024 5:52 AM LIVE STUDY MANAGER) CRP 1.8 <=10.0 mg/L Comment:Testing performed by : [address] [address] Blood 05/22/2024 5:52 AM LIVE STUDY MANAGER 05/22/2024 6:01 AM LIVE STUDY MANAGER Christiano Cummins MD LAB BLOOD ORDERABLES Final R esult Performing Organization Address [facility] de Phone Number [place] [id number] [place] [address] * Magnesium (05/22/2024 5:52 AM LIVE STUDY MANAGER) Magnesium 2.2 1.4 - 2.5 mg/dL Comment:Testing performed by : [address] [address] Blood 05/22/2024 5:52 AM LIVE STUDY MANAGER 05/22/2024 6:01 AM LIVE STUDY MANAGER Christiano Cummins MD LAB BLOOD ORDERABLES Final R esult Performing Organization Address [facility]/ZIP Co de Phone Number [facility] [address] [facility] Department [place] [address] * Ferritin (05/22/2024 5:52 AM LIVE STUDY MANAGER) Pathologist [facility] Ferritin 18 15 - 150 ng/mL Comment:Testing performed by : [address] [address] Blood 05/22/2024 5:52 AM LIVE STUDY MANAGER 05/22/2024 6:01 AM LIVE STUDY MANAGER us Christiano Cummins MD LAB BLOOD ORDERABLES Final R esult JARED [facility] [place] [address] * Basic metabolic panel (05/22/2024 5:52 AM LIVE STUDY MANAGER) Pathologist [facility] Sodium 139 135 - 145 mmol/L Comment:Testing performed by : [address] [address] Potassium, pl 4.0 3.3 - 4.9 mmol/L JARED Comment:Testing performed by : [address] [address] Chloride 107 97 - 110 mmol/L JARED Comment:Testing performed by : [address] [address] CO2 25 22 - 32 mmol/L JARED Comment:Testing performed by : [address] [address] Anion gap 7 2 - 15 mmol/L JARED Comment:Testing performed by : [address] [address] BUN 12 6 - 25 mg/dL JARED Comment:Testing performed by : [address] [address] Creatinine 0.70 0.60 - 1.10 mg/dL JARED Comment:Testing performed by : [address] [address] Glucose 106 70 - 199 mg/dL JARED [...] was last revised 2022. Testing performed by: [address] [address] Calcium 9.7 8.5 - 10.3 mg/dL JARED Comment:Testing performed by : [address] [address] Blood 05/22/2024 5:52 AM LIVE STUDY MANAGER 05/22/2024 6:01 AM LIVE STUDY MANAGER us Jenise Joyce NP LAB BLOOD ORDERABLES Final Re sult Performing Organization Address City/[facility] Co de Phone Number [facility] [address] [facility] [place] [place] [address] * POCT glucose (05/21/2024 7:39 PM LIVE STUDY MANAGER) [facility] Glucose, POC 120 70 - 199 mg/dL Comment:Testing performed by : [address] [address] Glucose comment 1 Use This Result JARED Comment:Testing performed by : [address] [address] Glucose comment 2 RN/MD Notified JARED Comment:Testing performed by : [address] [address] Blood 05/21/2024 7:39 PM LIVE STUDY MANAGER 05/21/2024 7:39 PM LIVE STUDY MANAGER Zay Toledo MD LAB POCT ORDERABLE S - DEVICE Final Result Performing Organization Address City/[facility]/ZIP Co de Phone Number [facility] [address] Department [place] [address] * MRI Brain WO Contrast (05/21/2024 6:34 PM LIVE STUDY MANAGER) Anatomical Region Laterality Modality Head and Neck N/A Magnetic Resonan ce 05/21/2024 8:27 PM LIVE STUDY MANAGER Narrative 05/21/2024 8:46 PM LIVE STUDY MANAGER EXAM DESCRIPTION: MRI BRAIN WO CONTRAST REASON [...] Johnie Barrera M.D. MF: VENUS Report ID: [id number] Reading Location: [place] [address] Procedure Note Bruce Johnie Pepe, DO - 05/21/2024 EXAM DESCRIPTION: MRI BRAIN WO CONTRAST REASON FOR STUDY: Neuro deficit, acute, stroke suspected Neuro deficit, acute, stroke suspected TECHNIQUE: Multiplanar imaging includes non-contrasted T1, T2, FLAIR, and diffusion with ADC map sequences. Additional sequence(s) sensitive Nativolood products. Images stored on PACS. COMPARISON: None available. FINDINGS: DIFFUSION IMAGING: Small focal area of restricted diffusion involving the left wlaters radiata/basal ganglia measuring up to 8 mm [...] Johnie Barrera M.D. MF: VENUS Report ID: [id number] Reading Location: [place] [address] Jenise Joyce NP IM MRI PROCEDURES Final Resu lt * CT Body Outside Reference (05/21/2024 4:52 PM LIVE STUDY MANAGER) Narrative TRISTIAN_MHE - 05/21/2024 4:52 PM LIVE STUDY MANAGER This order has been auto-finalized and does not contain a result. us Provider Transcribed Order IMG CT PROCEDURES Fin al Result Performing Organization Address [facility] Co de Phone Number JENELLE_NADYA_[email or web address]_MHE * CT Body Outside Reference (05/21/2024 4:46 PM LIVE STUDY MANAGER) Narrative TRISTIAN_ELISAE - 05/21/2024 4:46 PM LIVE STUDY MANAGER This order has been auto-finalized and does not contain a result. us Provider Transcribed Order IMG CT PROCEDURES Fin al Result Performing Organization Address [facility] de Phone Number JENELLE_[email or web address] * POCT glucose (05/21/2024 4:31 PM LIVE STUDY MANAGER) [facility] Glucose, POC 113 70 - 199 mg/dL Comment:Testing performed by : [address] [address] Glucose comment 1 Use This Result JARED PÉREZ Comment:Testing performed by : [address] [address] Glucose comment 2 RN/MD Notified JARED Comment:Testing performed by : [address] [address] Blood 05/21/2024 4:31 PM LIVE STUDY MANAGER 05/21/2024 4:31 PM LIVE STUDY MANAGER Zay Toledo MD LAB POCT ORDERABLE S - DEVICE Final Result Performing Organization Address [facility] Co de Phone Number JARED [address] [facility] Department [place] [address] * eGFR (05/21/2024 3:03 PM LIVE STUDY MANAGER) Pathologist [facility] eGFR 68 >=60 mL/min/1. 73 m2 Comment: [...] was last reviewed 2021. Testing performed by: [address] [address] Blood 05/21/2024 3:03 PM LIVE STUDY MANAGER 05/21/2024 3:05 PM LIVE STUDY MANAGER us Jenise Joyce NP LAB BLOOD ORDERABLES Final Re sult JARED [address] [facility] Department [place] [address] * Differential, auto (05/21/2024 3:03 PM LIVE STUDY MANAGER) Pathologist [facility] Neutrophil abs 4.0 1.5 - 6.5 K/cumm Comment:Testing performed by : [address] [address] Imm gran abs 0.0 0.0 - 0.1 K/cumm JARED PÉREZ Comment:Testing performed by : [address] [address] Lymphocyte abs 1.2 0.8 - 3.3 K/cumm JARED Comment:Testing performed by : [address] [address] Monocyte abs 0.6 0.2 - 0.8 K/cumm [facility] Comment:Testing performed by : [address] [address] Eosinophil abs 0.2 0.0 - 0.5 K/cumm JARED Comment:Testing performed by : [address], [place]., [address] Basophil abs 0.1 0.0 - 0.1 K/cumm [facility] Comment:Testing performed by : [address] [address] Neutrophil pct 66.3 % [facility] Comment: Interpretive Data Percent cell count reference ranges are not reported, since discordance with absolute values may lead to misinterpretation of CBC data. Current Interpretive Data was last revised on 2017. Testing performed by: [address] [address] Imm gran pct 0.3 % [facility] Comment: Interpretive Data Percent cell count reference ranges are not reported, since discordance with absolute values may lead to misinterpretation of CBC data. Current Interpretive Data was last revised on 2017. Testing performed by: [address] [address] Lymphocyte pct 19.6 % [facility] Comment: Interpretive Data Percent cell count reference ranges are not reported, since discordance with absolute values may lead to misinterpretation of CBC data. Current Interpretive Data was last revised on 2017. Testing performed by: [address] [address] Monocyte pct 9.7 % [facility] Comment: Interpretive Data Percent cell count reference ranges are not reported, since discordance with absolute values may lead to misinterpretation of CBC data. Current Interpretive Data was last revised on 2017. Testing performed by: [address] [address] Eosinophil pct 2.5 % [facility] Comment: Interpretive Data Percent cell count reference ranges are not reported, since discordance with absolute values may lead to misinterpretation of CBC data. Current Interpretive Data was last revised on 2017. Testing performed by: [address] [address] Basophil pct 1.6 % JARED Comment: Interpretive Data Percent cell count reference ranges are not reported, since discordance with absolute values may lead to misinterpretation of CBC data. Current Interpretive Data was last revised on 2017. Testing performed by: [address] [address] Blood 05/21/2024 3:03 PM LIVE STUDY MANAGER 05/21/2024 3:05 PM LIVE STUDY MANAGER [employer] LAB BLOOD ORDERABLES Final Re sult Performing Organization Address [facility] Co de Phone Number [address] [place] [address] * Thyroid Function [place] (05/21/2024 3:03 PM LIVE STUDY MANAGER) Pathologist [facility] TSH 1.23 0.30 - 4.20 mcIUnit/mL Comment:Testing performed by : [address] [address] Blood 05/21/2024 3:03 PM LIVE STUDY MANAGER 05/21/2024 3:05 PM LIVE STUDY MANAGER [facility] BLOOD ORDERABLES Final Re sult Performing Organization Address [facility] Co de Phone Number [address] [address] * (ABNORMAL) CBC with auto differential (05/21/2024 3:03 PM LIVE STUDY MANAGER) Pathologist [facility] WBC 6.1 3.8 - 9.9 K/cumm Comment:Testing performed by : [address] [address] Hgb 11.8(L) 11.9 - 15.5 g/dL JARED PÉREZ Comment:Testing performed by : [address] [address] Hct 37.7 35.6 - 45.5 % JARED PÉREZ Comment:Testing performed by : [address] [address] Plt 291 150 - 400 K/cumm JARED Comment:Testing performed by : [address] [address] MPV 9.4 9.1 - 12.3 fL JARED PÉREZ Comment:Testing performed by : [address] [address] RBC 4.86 3.90 - 5.20 M/cumm JARED PÉREZ Comment:Testing performed by : [address] [address] MCV 77.6(L) 81.3 - 96.4 fL JARED Comment:Testing performed by : [address] [address] MCH 24.3(L) 27.1 - 33.3 pg JARED Comment:Testing performed by : [address] [address] MCHC 31.3(L) 32.3 - 35.7 g/dL JARED Comment:Testing performed by : [address] [address] RDW CV 15.3(H) 11.1 - 14.9 % JARED Comment:Testing performed by : [address] [address] RDW SD 42.9 35.7 - 48.1 fL JARED Comment:Testing performed by : [address] [address] NRBC abs 0.00 0.00 - 0.01 K/cumm JARED Comment:Testing performed by : [address] [address] Blood 05/21/2024 3:03 PM LIVE STUDY MANAGER 05/21/2024 3:05 PM LIVE STUDY MANAGER us Jenise Joyce NP LAB BLOOD ORDERABLES Final Re sult JARED [address] [facility] Department of Laboratories [place], [place] [address] * (ABNORMAL) Hemoglobin A1c (05/21/2024 3:03 PM LIVE STUDY MANAGER) Hgb A1C 6.7(H) 4.0 - 5.6 % Comment:Testing performed by : [address] [address] Estimated Average Glucose 146 mg/dL JARED Comment: The ADA recommends reporting an estimated Average Glucose (eAG) with all Hemoglobin A1c results using the equation derived from a study of 507 normal and diabetic adults. Minority populations were underrepresented and children were not included. (Diabetes Care 31:8291-3708, 2008). The eAG is not equivalent to a fasting glucose. Testing performed by: [address] [address] Blood 05/21/2024 3:03 PM LIVE STUDY MANAGER 05/21/2024 3:05 PM LIVE STUDY MANAGER us Jenise Joyce NP LAB BLOOD ORDERABLES Final Re sult JARED [address] [facility] Department [place] [address] * Lipid panel (05/21/2024 3:03 PM LIVE STUDY MANAGER) Pathologist [facility] Cholesterol 167 30 - 199 mg/dL Comment: [...] last revised on 2017. Testing performed by: [address] [address] Triglycerides 100 <=149 mg/dL JARED Comment: Interpretive Data Ages < or = [...] last revised on 2017. Testing performed by: [address] [address] HDL 44 >=40 mg/dL [facility] Comment: Interpretive Data Ages < or = [...] last revised on 2017. Testing performed by: [address] [address] LDL, calculated 105 <=129 mg/dL JARED Comment: Interpretive Data Ages < or = [...] 2004;110:227 3. Garcia Miller al. JESSI Cardiol. 2020 August 31;5(5):540-548. doi: 10.1001/jamacardio.2020.0013 Current Interpretive Data was last revised on 2023. Testing performed by: [address] [address] Non-HDL Cholesterol 123 mg/dL JARED PÉREZ Comment: [...] last revised on 2017. Testing performed by: [address] [address] Chol/HDL ratio 4 JARED PÉREZ Comment:Testing performed by : [address] [address] Blood 05/21/2024 3:03 PM LIVE STUDY MANAGER 05/21/2024 3:05 PM LIVE STUDY MANAGER us Jenise Joyce NP LAB BLOOD ORDERABLES Final Re sult JARED PÉREZ [address] [facility] Department of Laboratories [place], [place] [address] * Basic metabolic panel (05/21/2024 3:03 PM LIVE STUDY MANAGER) Sodium 140 135 - 145 mmol/L Comment:Testing performed by : [address] [address] Potassium, pl 4.1 3.3 - 4.9 mmol/L JARED PÉREZ Comment:Testing performed by : [address] [address] Chloride 107 97 - 110 mmol/L JARED PÉREZ Comment:Testing performed by : [address] [address] CO2 24 22 - 32 mmol/L JARED PÉREZ Comment:Testing performed by : [address] [address] Anion gap 9 2 - 15 mmol/L JARED Comment:Testing performed by : [address] [address] BUN 12 6 - 25 mg/dL JARED Comment:Testing performed by : [address] [address] Creatinine 0.90 0.60 - 1.10 mg/dL JARED Comment:Testing performed by : [address] [address] Glucose 99 70 - 199 mg/dL JARED [...] was last revised 2022. Testing performed by: [address] [address] Calcium 9.6 8.5 - 10.3 mg/dL JARED Comment:Testing performed by : [address] [address] Blood 05/21/2024 3:03 PM LIVE STUDY MANAGER 05/21/2024 3:05 PM LIVE STUDY MANAGER us Jenise Joyce NP LAB BLOOD ORDERABLES Final Re sult [facility] [address] [facility] [place] [address] * CT Body Outside Reference (05/20/2024 12:00 AM LIVE STUDY MANAGER) Narrative JENELLE_NADYA_KRISTOFER_MHE - 05/21/2024 4:53 PM LIVE STUDY MANAGER This order has been auto-finalized and does not contain a result. us Provider Transcribed Order IMG CT PROCEDURES Fin al Result RAD_CLARIO_MHB_MHE from Last 3 Months Insurance [employer] S[employer]IOR [employer]MENT MEDICARE [facility] Address: [address] [address] [place] [address] [employer] MEDICARE ADVANTAGE [facility] MED[facility] Address: [address] [address] [place] [address] [place] [address] [facility] MEDICARE ADVANTAGE [facility] Address: [facility] [address] [place] [address] Advance Directives For more information, please contact: [phone] * Full Code (Latest Code Status on File) Date Activated Date Inactivated Comments 05/21/2024 3:27 PM 05/25/2024 7:46 PM Care Teams Admissions Counselor Relationship Specialty Start Date End Date Johnie Ordaz MD PCP - General Internal Medicine 08/23/20
--- OUTSIDE RECORDS SUMMARY | 2024-08-09 10:54 | XMS_ITS | Continuity of Care Document ---
Author Organization [facility] Address [address] [place] [address] Phone Care Team Providers Care Sand Mill Operator Core Sand Name Role Phone Parra OD, Shaun Unavailable Unavailable Procedures Procedure Date Eye Exam & Treatment Eye Exam & Treatment Eye Exam & Treatment Refraction Advance Directives Directive Yes / No Effective Date File Name No Information Encounters Encounter Description Practice Location Reason(s) For Visit Diagnoses Date Provider Providers Copied on Encounter [facility], [address] [place] [address] [address], [place], [place], [id number], tel:[phone] [facility] [place] No Information 5-201 0 Parra OD Shaun. [address], [place], [place], [facility], [place]. tel:[phone] [facility], [address] [place] [address] [address], [place], [place], [id number], tel:[phone] [facility] [place] No Information 2-200 9 Parra OD Shaun. [address], [place], [address], [place]. tel:[phone] [facility], [address] [place] [address] [address], [place], [place], [id number], tel:[phone] [facility] [place] No Information Dec- 3-200 8 Parra OD Shaun. [address], [place], [place], [facility], [place]. tel:[phone] Family History Family Member Type Diagnosis Age At Onset No Information Payers Payer name Insurance type Covered libertarian ID Authoriza tikrista(s) [place] [id number] Social History Type Description Quantity Date Captured Comments Sex Female Smoking Status No Information Chief Complaint And Reason For Visit No Information Reason For Referral Reason For Referral No Information History Of Present Illness Encounter Date Complaint History Of Prese nt Illness No Information Functional Status Date Functional Assessmen t No Information Instructions Date Instruction Additional Infor mation No Information Assessments Type Assessment Date No Information Patient Care Teams Name Effective Dates (start - stop) Status Members No Information
== END 2024-08-09 09:44 | disposition home or self-care (01) ==
PROVIDERS: PCP Internal Medicine; Visit Provider Internal Medicine
DX: R91.1 Solitary pulmonary nodule (principal); J43.9 Emphysema, unspecified
CPT/HCPCS: 71250

== ENCOUNTER 2024-08-13 17:37 | Inpatient (IN) | payer MEDICARE, SELFPAY ==
[2024-08-13] VITALS (7 sets, daily range): BP systolic 113–140; BP diastolic 53–74; PULSE 66–89; RESP 16–20; TEMP 36.2–36.3; O2SAT 94–98; BMI 27.8
--- NOTE | ~2024-08-13 | MR_ITS ---
EXAMINATION: MR brain/brain stem wo/w con DATE: 08/14/2024 09:29 INDICATION: Transient ischemic episode. Stroke. TECHNIQUE: Magnetic resonance imaging (MRI) of the brain and brainstem was performed without and with 15 mL Multihance intravenous contrast. Sequences included sagittal and axial T1-weighted SE, axial d iffusion-weighted FS SE, axial 3D SWAN, axial T2-weighted FLAIR, and axial T2-weighted FSE. Postcontr ast axial and coronal T1-weighted SE was obtained. Apparent diffusion coefficient (ADC) maps were cre ated. COMPARISON: Head CT dated 08/13/2024 FINDINGS: There are no areas of restricted diffusion to suggest acute infarction. Region of encephalomalacia in the left basal ganglia involving portions of the lentiform nucleus, the caudate nucleus, intervening anterior limb of the internal capsule and extending cephalad into the left frontal lobe walters radia ta. There are additional small old lacunar infarcts at the left thalamus and at the right basal gangl ia. No intracranial hemorrhage or abnormal intracranial mass lesion. There are scattered areas of non specific increased T2-weighted signal intensity in the cerebral white matter, predominantly involving the deep and periventricular white matter. There are no intraparenchymal signal abnormalities seen o n the other pulse sequences. The ventricles are symmetric and normal in size with mild ex vacuo dilat ion in the body the left lateral ventricle resulting from the adjacent infarct. There are no abnormal extra-axial fluid collections. Flow voids are seen in the cerebral arteries on the T2-weighted seque nces consistent with their expected patency. Mild mucosal thickening the bilateral ethmoid sinuses. V isualized orbits and soft tissues are unremarkable. There are no areas of abnormal enhancement on the post contrast images. IMPRESSION: 1. 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 No acute intracranial process or abnormally enhancing brain lesions. Reviewed, dictated and finalized at location A. IMPRESSION: 1. 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 No acute intracranial process or abnormally enhancin g brain lesions.
--- NOTE | ~2024-08-13 | CT_ITS ---
EXAMINATION: CT brain wo con DATE: 08/13/2024 18:46 INDICATION: dizzy . TECHNIQUE: Computed tomography (CT) of the head was performed without intravenous contrast. The mA wa s adjusted according to patient size. Iterative reconstruction technique was employed. The dose-lengt h product was 605.33 mGy-cm. COMPARISON: 08/29/2019. FINDINGS: No acute intracranial hemorrhage or extra-axial fluid collection. No hydrocephalus, mass, or herniation. No acute large vessel infarct. Focal hypodensity in the left thalamus. Unremarkable dural venous sinus attenuation. No acute osseous abnormality. The aerated spaces are clear. Moderate atrophy and chronic white matter change. Atherosclerotic intracranial calcification. Bilater al basal ganglia lacunar infarcts. Old focal left periventricular infarcts. IMPRESSION: Possible focal left thalamic infarct of indeterminate age, consider MR of the brain for further evalu ation. Otherwise, no acute intracranial process. Reviewed, dictated and finalized at location K. IMPRESSION: Possible focal left thalamic infarct of indeterminate age, consider MR of the b rain for further evaluation. Otherwise, no acute intracranial process.
--- NOTE | ~2024-08-13 | US_ITS ---
EXAMINATION: US carotid duplex BI DATE: 08/14/2024 12:24 INDICATION: Transient ischemic episode and stroke TECHNIQUE: Grayscale, color Doppler, and pulsed Doppler images of the cervical carotid arteries were obtained. The degree of vessel stenosis is placed in one of the following categories: normal, <50%, 5 0-69%, >=70% but less than near-occlusion, near-occlusion, or total occlusion. Note that percent sten osis relative to normal distal artery lumen diameter is indirectly measured from velocity measurement s as described by Rigoberto, et al. Radiology 2003; [id number]. COMPARISON: None. FINDINGS: Incidentally noted are bilateral solid thyroid nodules the larger on the right chest wall of the righ t measuring 3.0 cm and the smaller on the right which is wider than tall measures 1.7 cm. RIGHT: The right common carotid artery (CCA) peak systolic velocity (PSV) is 42 cm/s. The right internal car otid artery (ICA) PSV is 46 cm/s. The right ICA end-diastolic velocity (EDV) is 9 cm/s. The right ICA /CCA PSV ratio is 1.1. Grayscale and color Doppler images yield an estimate of <50% diameter reductio n from plaque in the ICA. The external carotid artery (ECA) PSV is 77 cm/s. There is antegrade flow i n the right vertebral artery. LEFT: The left CCA PSV is 55 cm/s. The left ICA PSV is 53 cm/s. The left ICA EDV is 10 cm/s. The left ICA/C CA PSV ratio is 1.0. Grayscale and color Doppler images yield an estimate of <50% diameter reduction from plaque in the ICA. The ECA PSV is 51 cm/s. There is antegrade flow in the left vertebral artery. IMPRESSION: 1. <50% stenosis in the right internal carotid artery. 2. <50% stenosis in the left internal carotid artery. 3. Multinodular goiter couple nodule which are likely criteria for thyroid biopsy. Recommend formal t hyroid ultrasound for more comprehensive assessment and for risk stratification. Reviewed, dictated and finalized at location A. IMPRESSION: 1. <50% stenosis in the right internal carotid artery. 2. <50% stenosis in the left internal carotid artery. 3. Multinodular goiter couple nodule which are likely criteria for thyroid biop sy. Recommend formal thyroid ultrasound for more comprehensive assessment and f or risk stratification.
--- NOTE | ~2024-08-13 | XR_ITS ---
EXAMINATION: XR chest 2V Exam Date/Time: 08/13/2024 18:45 CDT HISTORY: dizzy Comparison: CT chest 08/09/2024. RESULT: Lines, tubes, and devices: Cholecystectomy clips. Lungs and pleura: No focal consolidation, pleural effusion, or pneumothorax. Mild diffuse reticular opacities. Calcified granulomas. Cardiomediastinal silhouette: Stable. Calcified lymph nodes. Other: No acute osseous or upper abdominal finding. IMPRESSION: Mild interstitial edema versus chronic interstitial change. Reviewed, dictated and finalized at location K.
--- OUTSIDE RECORDS SUMMARY | 2024-08-13 17:40 | XMS_ITS | Clinical Summary ---
Author Organization [facility] Address [address] [place] [address] Care Team Providers Care Fmd Teacher Name Role Phone Johnie Ordaz MD Primary Care Provider + [phone] Allergies No known active allergies Medications blood [...] 03/09/2023 Assessment & Plan (03/09/2023 12:52 PM TRAFFIC CONTROL SIGNALER): Differential diagnosis would include benign nodule (macrofollicular [...] review. In addition she has an ongoing quality assurance monitor chassis to screen for atrial fibrillation which should be completed later this week. She will continue on aspirin therapy at this time pending completion of her outstanding tests. I will see her back thereafter. 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 Never 05/22/2024 Do you belong to any clubs o r organizations such as jewish groups, unions, fraternal or athletic groups, or [...] any time in the past 12 m [facility], were you homeless or living in a detention (including now)? No 05/22/2024 Personal Safety Answer Date Recorded Have you ever been in or are you currently in a harmful physical or emotional relationship or is someone making you feel afraid or unsafe? Denies 05/21/2024 Comments No Sex and Gender Information Value Date Recorded Sex Assigned at Not on file Legal Sex Female 8:13 PM TRAFFIC CONTROL SIGNALER Gender Identity Not on file Sexual Orientation Not on file Obstetrics History Last Filed Vital Signs Vital Sign Reading Time Taken Comments Blood Pressure 120/60 07/10/2024 9:14 AM CDT Pulse 91 07/10/2024 9:14 AM CDT Temperature 36.3 C (97.3 F) 05/25/2024 11:34 AM TRAFFIC CONTROL SIGNALER Respiratory Rate 19 07/10/2024 9:14 AM CDT [...] Diagnosis Comments EGFR Routine 05/29/2024 6:03 AM TRAFFIC CONTROL SIGNALER BASIC METABOLIC PANEL Routine 05/29/2024 6:03 AM TRAFFIC CONTROL SIGNALER DIFFERENTIAL AUTO Routine 05/29/2024 6:0 3 AM TRAFFIC CONTROL SIGNALER CBC WITH AUTO DIFFERENTIAL Routine 05/29/2024 6:03 AM TRAFFIC CONTROL SIGNALER VITAMIN D 25 HYDROXY Routine 05/26/2024 6:13 AM TRAFFIC CONTROL SIGNALER PREALBUMIN Routine 05/26/2024 6:13 AM TRAFFIC CONTROL SIGNALER EGFR Routine 05/26/2024 6:13 AM TRAFFIC CONTROL SIGNALER VITAMIN B12 Routine 05/26/2024 6:13 AM TRAFFIC CONTROL SIGNALER COMPREHENSIVE METABOLIC PANEL Routine 05/26/2024 6:13 AM TRAFFIC CONTROL SIGNALER MAGNESIUM Routine 05/26/2024 6:13 AM TRAFFIC CONTROL SIGNALER PHOSPHORUS Routine 05/26/2024 6:13 AM TRAFFIC CONTROL SIGNALER POCT GLUCOSE DEVICE Routine 05/25/2024 1 2:22 PM TRAFFIC CONTROL SIGNALER POCT GLUCOSE DEVICE Routine 05/25/2024 7 :46 AM TRAFFIC CONTROL SIGNALER EGFR Routine 05/25/2024 6:01 AM TRAFFIC CONTROL SIGNALER DIFFERENTIAL AUTO Routine 05/25/2024 6:0 1 AM TRAFFIC CONTROL SIGNALER CBC WITH AUTO DIFFERENTIAL Routine 05/25/2024 6:01 AM TRAFFIC CONTROL SIGNALER BASIC METABOLIC PANEL Routine 05/25/2024 6:01 AM TRAFFIC CONTROL SIGNALER POCT GLUCOSE DEVICE Routine 05/24/2024 8 :32 PM TRAFFIC CONTROL SIGNALER POCT GLUCOSE DEVICE Routine 05/24/2024 5 :18 PM TRAFFIC CONTROL SIGNALER POCT GLUCOSE DEVICE Routine 05/24/2024 1 1:59 AM TRAFFIC CONTROL SIGNALER EGFR Routine 05/24/2024 7:58 AM TRAFFIC CONTROL SIGNALER DIFFERENTIAL AUTO Routine 05/24/2024 7:5 8 AM TRAFFIC CONTROL SIGNALER CBC WITH AUTO DIFFERENTIAL Routine 05/24/2024 7:58 AM TRAFFIC CONTROL SIGNALER BASIC METABOLIC PANEL Routine 05/24/2024 7:58 AM TRAFFIC CONTROL SIGNALER POCT GLUCOSE DEVICE Routine 05/24/2024 7 :42 AM TRAFFIC CONTROL SIGNALER POCT GLUCOSE DEVICE Routine 05/23/2024 9 :07 PM TRAFFIC CONTROL SIGNALER POCT GLUCOSE DEVICE Routine 05/23/2024 5 :55 PM TRAFFIC CONTROL SIGNALER POCT GLUCOSE DEVICE Routine 05/23/2024 1 1:06 AM TRAFFIC CONTROL SIGNALER POCT GLUCOSE DEVICE Routine 05/23/2024 8 :02 AM TRAFFIC CONTROL SIGNALER EGFR Routine 05/23/2024 5:34 AM TRAFFIC CONTROL SIGNALER DIFFERENTIAL AUTO Routine 05/23/2024 5:3 4 AM TRAFFIC CONTROL SIGNALER CBC WITH AUTO DIFFERENTIAL Routine 05/23/2024 5:34 AM TRAFFIC CONTROL SIGNALER BASIC METABOLIC PANEL Routine 05/23/2024 5:34 AM TRAFFIC CONTROL SIGNALER POCT GLUCOSE DEVICE Routine 05/22/2024 9 :13 PM TRAFFIC CONTROL SIGNALER CTA HEAD NECK W WO CONTRAST IP Routine 05/22/2024 8:04 PM TRAFFIC CONTROL SIGNALER POCT GLUCOSE DEVICE Routine 05/22/2024 6 :14 PM TRAFFIC CONTROL SIGNALER TRANSTHORACIC ECHO (TTE) COMPLETE W DOPPLER/CF W CONTRAST W BUBBLE Routine 05/22/2024 2:20 PM TRAFFIC CONTROL SIGNALER POCT GLUCOSE DEVICE Routine 05/22/2024 1 2:48 PM TRAFFIC CONTROL SIGNALER ECG 12-LEAD Routine 05/22/2024 10:35 AM TRAFFIC CONTROL SIGNALER US CAROTIDS DUPLEX BILATERAL IP Routine 05/22/2024 9:28 AM TRAFFIC CONTROL SIGNALER POCT GLUCOSE DEVICE Routine 05/22/2024 8 :56 AM TRAFFIC CONTROL SIGNALER VITAMIN D 25 HYDROXY Timed 05/22/2024 8:03 AM TRAFFIC CONTROL SIGNALER FOLATE Timed 05/22/2024 8:03 AM TRAFFIC CONTROL SIGNALER IRON PROFILE W/ IBC Timed 05/22/2024 8 :03 AM TRAFFIC CONTROL SIGNALER CRP (ACUTE PHASE) Routine 05/22/2024 5:5 2 AM TRAFFIC CONTROL SIGNALER MAGNESIUM Routine 05/22/2024 5:52 AM TRAFFIC CONTROL SIGNALER FERRITIN Routine 05/22/2024 5:52 AM TRAFFIC CONTROL SIGNALER EGFR Routine 05/22/2024 5:52 AM TRAFFIC CONTROL SIGNALER DIFFERENTIAL AUTO Routine 05/22/2024 5:5 2 AM TRAFFIC CONTROL SIGNALER CBC WITH AUTO DIFFERENTIAL Routine 05/22/2024 5:52 AM TRAFFIC CONTROL SIGNALER BASIC METABOLIC PANEL Routine 05/22/2024 5:52 AM TRAFFIC CONTROL SIGNALER POCT GLUCOSE DEVICE Routine 05/21/2024 7 :39 PM TRAFFIC CONTROL SIGNALER MRI BRAIN WO CONTRAST IP Routine 05/21/2024 6:[address] BODY OUTSIDE REFERENCE Routine 05/21/2024 4:[address] BODY OUTSIDE REFERENCE Routine 05/21/2024 4:46 PM TRAFFIC CONTROL SIGNALER POCT GLUCOSE DEVICE Routine 05/21/2024 4 :31 PM TRAFFIC CONTROL SIGNALER EGFR STAT 05/21/2024 3:03 PM TRAFFIC CONTROL SIGNALER DIFFERENTIAL AUTO STAT 05/21/2024 3:0 3 PM TRAFFIC CONTROL SIGNALER THYROID FUNCTION CASCADE Routine 05/21/2024 3:03 PM TRAFFIC CONTROL SIGNALER HEMOGLOBIN A1C STAT 05/21/2024 3:03 PM TRAFFIC CONTROL SIGNALER LIPID PANEL STAT 05/21/2024 3:03 PM TRAFFIC CONTROL SIGNALER BASIC METABOLIC PANEL STAT 05/21/2024 3:03 PM TRAFFIC CONTROL SIGNALER CBC WITH AUTO DIFFERENTIAL STAT 05/21/2024 3:[address] BODY OUTSIDE REFERENCE Routine 05/20/2024 12:00 AM TRAFFIC CONTROL SIGNALER from Last 3 Months Results * eGFR (05/29/2024 6:03 AM TRAFFIC CONTROL SIGNALER) Pathologist [facility] eGFR 62 >=60 mL/min/1. 73 m2 JARED [...] was last reviewed 2021. Testing performed by: [address] [address] Blood 05/29/2024 6:03 AM TRAFFIC CONTROL SIGNALER 05/29/2024 8:14 AM TRAFFIC CONTROL SIGNALER us Notinfile Unknown LAB BLOOD ORDERABLES Final Res ult JRAED [address] [facility] Department [place] [address] * Differential, auto (05/29/2024 6:03 AM TRAFFIC CONTROL SIGNALER) Neutrophil abs 5.4 1.5 - 6.5 K/cumm JARED PÉREZ Comment:Testing performed by : [address] [address] Imm gran abs 0.0 0.0 - 0.1 K/cumm JARED PÉREZ Comment:Testing performed by : [address] [address] Lymphocyte abs 1.6 0.8 - 3.3 K/cumm JARED PÉREZ Comment:Testing performed by : [address] [address] Monocyte abs 0.8 0.2 - 0.8 K/cumm JARED PÉREZ Comment:Testing performed by : [address] [address] Eosinophil abs 0.1 0.0 - 0.5 K/cumm JARED Comment:Testing performed by : [address] [address] Basophil abs 0.1 0.0 - 0.1 K/cumm JARED Comment:Testing performed by : [address] [address] Neutrophil pct 67.6 % [facility] Comment: Interpretive Data Percent cell count reference ranges are not reported, since discordance with absolute values may lead to misinterpretation of CBC data. Current Interpretive Data was last revised on 2017. Testing performed by: [address] [address] Imm gran pct 0.4 % [facility] Comment: Interpretive Data Percent cell count reference ranges are not reported, since discordance with absolute values may lead to misinterpretation of CBC data. Current Interpretive Data was last revised on 2017. Testing performed by: [address] [address] Lymphocyte pct 19.4 % [facility] Comment: Interpretive Data Percent cell count reference ranges are not reported, since discordance with absolute values may lead to misinterpretation of CBC data. Current Interpretive Data was last revised on 2017. Testing performed by: [address] [address] Monocyte pct 9.4 % [facility] Comment: Interpretive Data Percent cell count reference ranges are not reported, since discordance with absolute values may lead to misinterpretation of CBC data. Current Interpretive Data was last revised on 2017. Testing performed by: [address] [address] Eosinophil pct 1.8 % [facility] Comment: Interpretive Data Percent cell count reference ranges are not reported, since discordance with absolute values may lead to misinterpretation of CBC data. Current Interpretive Data was last revised on 2017. Testing performed by: [address] [address] Basophil pct 1.4 % [facility] Comment: Interpretive Data Percent cell count reference ranges are not reported, since discordance with absolute values may lead to misinterpretation of CBC data. Current Interpretive Data was last revised on 2017. Testing performed by: [address] [address] Blood 05/29/2024 6:03 AM TRAFFIC CONTROL SIGNALER 05/29/2024 8:14 AM TRAFFIC CONTROL SIGNALER us Notinfile Unknown LAB BLOOD ORDERABLES Final Res ult JARED PÉREZ [address] [facility] Department [place] [address] * (ABNORMAL) CBC with auto differential (05/29/2024 6:03 AM TRAFFIC CONTROL SIGNALER) WBC 8.0 3.8 - 9.9 K/cumm JARED PÉREZ Comment:Testing performed by : [address] [address] Hgb 11.6(L) 11.9 - 15.5 g/dL JARED Comment:Testing performed by : [address] [address] Hct 36.8 35.6 - 45.5 % JARED Comment:Testing performed by : [address] [address] Plt 311 150 - 400 K/cumm JARED Comment:Testing performed by : [address] [address] MPV 9.6 9.1 - 12.3 fL JARED Comment:Testing performed by : [address] [address] RBC 4.75 3.90 - 5.20 M/cumm JARED PÉREZ Comment:Testing performed by : [address] [address] MCV 77.5(L) 81.3 - 96.4 fL JARED Comment:Testing performed by : [address] [address] MCH 24.4(L) 27.1 - 33.3 pg AJRED PÉREZ Comment:Testing performed by : [address] [address] MCHC 31.5(L) 32.3 - 35.7 g/dL JARED Comment:Testing performed by : [address] [address] RDW CV 15.6(H) 11.1 - 14.9 % JARED Comment:Testing performed by : [address] [address] RDW SD 42.9 35.7 - 48.1 fL JARED PÉREZ Comment:Testing performed by : [address] [address] NRBC abs 0.00 0.00 - 0.01 K/cumm JARED Comment:Testing performed by : [address] [address] Blood 05/29/2024 6:03 AM TRAFFIC CONTROL SIGNALER 05/29/2024 8:14 AM TRAFFIC CONTROL SIGNALER us Notinfile Unknown LAB BLOOD ORDERABLES Final Res ult JARED [address] [facility] Department [place] [address] * (ABNORMAL) Basic metabolic panel (05/29/2024 6:03 AM TRAFFIC CONTROL SIGNALER) Sodium 138 135 - 145 mmol/L JARED PÉREZ Comment:Testing performed by : [address], [address] Potassium, pl 4.2 3.3 - 4.9 mmol/L JARED Comment:Testing performed by : [address] [address] Chloride 108 97 - 110 mmol/L JARED Comment:Testing performed by : [address] [address] CO2 20(L) 22 - 32 mmol/L JARED Comment:Testing performed by : [address], [address] Anion gap 10 2 - 15 mmol/L JARED Comment:Testing performed by : [address] [address] BUN 13 6 - 25 mg/dL JARED Comment:Testing performed by : [address], [address] Creatinine 0.96 0.60 - 1.10 mg/dL JARED PÉREZ Comment:Testing performed by : [address] [address] Glucose 91 70 - 199 mg/dL JARED [...] was last revised 2022. Testing performed by: [address] [address] Calcium 10.0 8.5 - 10.3 mg/dL JARED Comment:Testing performed by : [address] [address] Blood 05/29/2024 6:03 AM TRAFFIC CONTROL SIGNALER 05/29/2024 8:14 AM TRAFFIC CONTROL SIGNALER us Notinfile Unknown LAB BLOOD ORDERABLES Final Res ult JARED [address] [facility] Department of Laboratories [place], [place] [id number] * eGFR (05/26/2024 6:13 AM TRAFFIC CONTROL SIGNALER) eGFR 78 >=60 mL/min/1. 73 m2 JARED [...] was last reviewed 2021. Testing performed by: [facility], [address] [place] [address]., [address] Blood 05/26/2024 6:13 AM TRAFFIC CONTROL SIGNALER 05/26/2024 8:39 AM TRAFFIC CONTROL SIGNALER us Notinfile Unknown LAB BLOOD ORDERABLES Final Res ult Performing Organization Address [facility] Co de Phone Number [address] [place] [address] * (ABNORMAL) Vitamin D 25 hydroxy (05/26/2024 6:13 AM TRAFFIC CONTROL SIGNALER) Vitamin D 25-OH 13.0(L) 30.0 - 80.0 ng/mL [facility] Blood 05/26/2024 6:13 AM TRAFFIC CONTROL SIGNALER 05/26/2024 10:19 AM TRAFFIC CONTROL SIGNALER us Notinfile Unknown LAB BLOOD ORDERABLES Final Res ult Performing Organization Address [facility] Co de Phone Number [address] [place] [address] * (ABNORMAL) Prealbumin (05/26/2024 6:13 AM TRAFFIC CONTROL SIGNALER) Prealbumin 13.2(L) 20.0 - 40.0 mg/dL [facility] Comment:Specimen is Lipemic; results may be inaccurate due to high levels of lipids. Blood 05/26/2024 6:13 AM TRAFFIC CONTROL SIGNALER 05/26/2024 10:19 AM TRAFFIC CONTROL SIGNALER us Notinfile Unknown LAB BLOOD ORDERABLES Final Res ult Performing Organization Address [facility] Co de Phone Number [address] [place] [address] * Phosphorus (05/26/2024 6:13 AM TRAFFIC CONTROL SIGNALER) Phosphorus, pl 4.1 2.3 - 4.5 mg/dL JARED PÉREZ Comment:Testing performed by : [address] [address] Blood 05/26/2024 6:13 AM TRAFFIC CONTROL SIGNALER 05/26/2024 8:39 AM TRAFFIC CONTROL SIGNALER us Notinfile Unknown LAB BLOOD ORDERABLES Final Res ult JARED [address] [address] * Magnesium (05/26/2024 6:13 AM TRAFFIC CONTROL SIGNALER) Pathologist [facility] Magnesium 2.5 1.4 - 2.5 mg/dL JARED Comment:Testing performed by : [address] [address] Blood 05/26/2024 6:13 AM TRAFFIC CONTROL SIGNALER 05/26/2024 8:39 AM TRAFFIC CONTROL SIGNALER us Notinfile Unknown LAB BLOOD ORDERABLES Final Res ult Performing Organization Address City/[facility]/ZIP Co de Phone Number [address] [address] * Vitamin B12 (05/26/2024 6:13 AM TRAFFIC CONTROL SIGNALER) Vitamin B12 421 230 - 1,250 pg/mL JARED Comment:Testing performed by : [address] [address] Blood 05/26/2024 6:13 AM TRAFFIC CONTROL SIGNALER 05/26/2024 8:39 AM TRAFFIC CONTROL SIGNALER us Notinfile Unknown LAB BLOOD ORDERABLES Final Res ult [address] [place] [address] * (ABNORMAL) Comprehensive metabolic panel (05/26/2024 6:13 AM TRAFFIC CONTROL SIGNALER) Sodium 136 135 - 145 mmol/L JARED Comment:Testing performed by : [address] [address] Potassium, pl 4.4 3.3 - 4.9 mmol/L JARED Comment:Testing performed by : [address] [address] Chloride 105 97 - 110 mmol/L JARED Comment:Testing performed by : [address], [place]., [address] CO2 21(L) 22 - 32 mmol/L JARED Comment:Testing performed by : [address] [address] Anion gap 10 2 - 15 mmol/L JARED Comment:Testing performed by : [address] [address] BUN 15 6 - 25 mg/dL JARED Comment:Testing performed by : [address] [address] Creatinine 0.80 0.60 - 1.10 mg/dL JARED Comment:Testing performed by : [address] [address] Glucose 111 70 - 199 mg/dL JARED [...] was last revised 2022. Testing performed by: [address] [address] Calcium 10.4(H) 8.5 - 10.3 mg/dL JARED Comment:Testing performed by : [address] [address] Bilirubin, total 0.6 0.1 - 1.2 mg/dL JARED PÉREZ Comment:Testing performed by : [address] [address] Protein, pl 6.9 6.5 - 8.5 g/dL JARED PÉREZ Comment:Testing performed by : [address] [address] Albumin 3.8 3.5 - 5.0 g/dL JARED Comment:Testing performed by : [address] [address] Alk phos 92 40 - 130 Units/L JARED Comment:Testing performed by : [address] [address] ALT 8 7 - 45 Units/L JARED Comment:Testing performed by : [address] [address] AST 26 10 - 45 Units/L JARED Comment:Testing performed by : [address] [address] Blood 05/26/2024 6:13 AM TRAFFIC CONTROL SIGNALER 05/26/2024 8:39 AM TRAFFIC CONTROL SIGNALER us Notinfile Unknown LAB BLOOD ORDERABLES Final Res ult [facility] [address] [facility] Department [place] [address] * POCT glucose (05/25/2024 12:22 PM TRAFFIC CONTROL SIGNALER) [facility] Signature Glucose, POC 146 70 - 199 mg/dL Comment:Testing performed by : [address] [address] Glucose comment 1 Use This Result JARED PÉREZ Comment:Testing performed by : [address] [address] Glucose comment 2 RN/MD Notified JARED PÉREZ Comment:Testing performed by : [address] [address] Blood 05/25/2024 12:2 2 PM TRAFFIC CONTROL SIGNALER 05/25/2024 12:22 PM TRAFFIC CONTROL SIGNALER August Juan MD LAB POCT ORDERABLES - D EVICE Final Result Performing Organization Address [facility] de Phone Number JARED [facility] [place] [address] * POCT glucose (05/25/2024 7:46 AM TRAFFIC CONTROL SIGNALER) [facility] Glucose, POC 97 70 - 199 mg/dL Comment:Testing performed by : [address] [address] Glucose comment 1 Use This Result JARED PÉREZ Comment:Testing performed by : [address] [address] Glucose comment 2 RN/MD Notified JARED PÉREZ Comment:Testing performed by : [address] [address] Blood 05/25/2024 7:46 AM TRAFFIC CONTROL SIGNALER 05/25/2024 7:46 AM TRAFFIC CONTROL SIGNALER August Juan MD LAB POCT ORDERABLES - D EVICE Final Result Performing Organization Address [facility] Co de Phone Number JARED [facility] [place] [address] * eGFR (05/25/2024 6:01 AM TRAFFIC CONTROL SIGNALER) [facility] eGFR >90 >=60 mL/min/1. 73 m2 Comment: [...] was last reviewed 2021. Testing performed by: [address] [address] Blood 05/25/2024 6:01 AM TRAFFIC CONTROL SIGNALER 05/25/2024 6:27 AM TRAFFIC CONTROL SIGNALER us Jenise Joyce NP LAB BLOOD ORDERABLES Final Re sult [facility] [address] [facility] Department [place] [address] * Differential, auto (05/25/2024 6:01 AM TRAFFIC CONTROL SIGNALER) Neutrophil abs 5.6 1.5 - 6.5 K/cumm Comment:Testing performed by : [address] [address] Imm gran abs 0.0 0.0 - 0.1 K/cumm JARED Comment:Testing performed by : [address] [address] Lymphocyte abs 1.2 0.8 - 3.3 K/cumm JARED Comment:Testing performed by : [address] [address] Monocyte abs 0.7 0.2 - 0.8 K/cumm JARED Comment:Testing performed by : [address] [address] Eosinophil abs 0.2 0.0 - 0.5 K/cumm JARED Comment:Testing performed by : [address] [address] Basophil abs 0.1 0.0 - 0.1 K/cumm JARED Comment:Testing performed by : [address] [address] Neutrophil pct 72.0 % JARED Comment: Interpretive Data Percent cell count reference ranges are not reported, since discordance with absolute values may lead to misinterpretation of CBC data. Current Interpretive Data was last revised on 2017. Testing performed by: [address] [address] Imm gran pct 0.3 % [facility] Comment: Interpretive Data Percent cell count reference ranges are not reported, since discordance with absolute values may lead to misinterpretation of CBC data. Current Interpretive Data was last revised on 2017. Testing performed by: [address] [address] Lymphocyte pct 15.7 % [facility] Comment: Interpretive Data Percent cell count reference ranges are not reported, since discordance with absolute values may lead to misinterpretation of CBC data. Current Interpretive Data was last revised on 2017. Testing performed by: [address] [address] Monocyte pct 8.5 % [facility] Comment: Interpretive Data Percent cell count reference ranges are not reported, since discordance with absolute values may lead to misinterpretation of CBC data. Current Interpretive Data was last revised on 2017. Testing performed by: [address] [address] Eosinophil pct 2.2 % [facility] Comment: Interpretive Data Percent cell count reference ranges are not reported, since discordance with absolute values may lead to misinterpretation of CBC data. Current Interpretive Data was last revised on 2017. Testing performed by: [address] [address] Basophil pct 1.3 % [facility] Comment: Interpretive Data Percent cell count reference ranges are not reported, since discordance with absolute values may lead to misinterpretation of CBC data. Current Interpretive Data was last revised on 2017. Testing performed by: [address] [address] Blood 05/25/2024 6:01 AM TRAFFIC CONTROL SIGNALER 05/25/2024 6:27 AM TRAFFIC CONTROL SIGNALER us Jenise Joyce NP LAB BLOOD ORDERABLES Final Re sult JARED [address] [facility] Department [place] [address] * (ABNORMAL) CBC with auto differential (05/25/2024 6:01 AM TRAFFIC CONTROL SIGNALER) [facility] WBC 7.8 3.8 - 9.9 K/cumm Comment:Testing performed by : [address] [address] Hgb 11.9 11.9 - 15.5 g/dL JARED Comment:Testing performed by : [address] [address] Hct 37.4 35.6 - 45.5 % JARED Comment:Testing performed by : [address] [address] Plt 315 150 - 400 K/cumm JARED Comment:Testing performed by : [address] [address] MPV 9.8 9.1 - 12.3 fL JARED Comment:Testing performed by : [address] [address] RBC 4.93 3.90 - 5.20 M/cumm JARED Comment:Testing performed by : [address] [address] MCV 75.9(L) 81.3 - 96.4 fL JARED Comment:Testing performed by : [address] [address] MCH 24.1(L) 27.1 - 33.3 pg JARED Comment:Testing performed by : [address] [address] MCHC 31.8(L) 32.3 - 35.7 g/dL JARED Comment:Testing performed by : [address], [address] RDW CV 15.1(H) 11.1 - 14.9 % JARED Comment:Testing performed by : [address] [address] RDW SD 41.2 35.7 - 48.1 fL JARED Comment:Testing performed by : [address] [address] NRBC abs 0.00 0.00 - 0.01 K/cumm JARED Comment:Testing performed by : [address] [address] Blood 05/25/2024 6:01 AM TRAFFIC CONTROL SIGNALER 05/25/2024 6:27 AM TRAFFIC CONTROL SIGNALER Jenise Joyce NP LAB BLOOD ORDERABLES Final Re sult JARED [address] [facility] Department [place] [address] * Basic metabolic panel (05/25/2024 6:01 AM TRAFFIC CONTROL SIGNALER) Sodium 136 135 - 145 mmol/L Comment:Testing performed by : [address] [address] Potassium, pl 4.3 3.3 - 4.9 mmol/L JARED Comment:Testing performed by : [address] [address] Chloride 104 97 - 110 mmol/L JARED Comment:Testing performed by : [address] [address] CO2 22 22 - 32 mmol/L JARED Comment:Testing performed by : [address] [address] Anion gap 10 2 - 15 mmol/L JARED Comment:Testing performed by : [address] [address] BUN 12 6 - 25 mg/dL JARED Comment:Testing performed by : [address] [address] Creatinine 0.70 0.60 - 1.10 mg/dL JARED Comment:Testing performed by : [address] [address] Glucose 102 70 - 199 mg/dL JARED [...] was last revised 2022. Testing performed by: [address] [address] Calcium 10.2 8.5 - 10.3 mg/dL JARED Comment:Testing performed by : [address] [address] Blood 05/25/2024 6:01 AM TRAFFIC CONTROL SIGNALER 05/25/2024 6:27 AM TRAFFIC CONTROL SIGNALER us Jenise Joyce NP LAB BLOOD ORDERABLES Final Re sult Performing Organization Address City/[facility]/ZIP Co de Phone Number PETR[address] [place] [address] * POCT glucose (05/24/2024 8:32 PM TRAFFIC CONTROL SIGNALER) Glucose, POC 107 70 - 199 mg/dL Comment:Testing performed by : [address] [address] Glucose comment 1 Use This Result JARED Comment:Testing performed by : [address] [address] Blood 05/24/2024 8:32 PM TRAFFIC CONTROL SIGNALER 05/24/2024 8:32 PM TRAFFIC CONTROL SIGNALER us August Juan MD LAB POCT ORDERABLES - D JEFFERYICE Final Result Performing Organization Address City/[facility]/ZIP Co de Phone Number [address] [place] [address] * POCT glucose (05/24/2024 5:18 PM TRAFFIC CONTROL SIGNALER) Glucose, POC 103 70 - 199 mg/dL Comment:Testing performed by : [address] [address] Glucose comment 1 Use This Result JARED Comment:Testing performed by : [facility], [address] [place] [address]., [address] Glucose comment 2 RN/MD Notified JARED Comment:Testing performed by : [facility], [address] [place] [address]., [address] Blood 05/24/2024 5:18 PM TRAFFIC CONTROL SIGNALER 05/24/2024 5:18 PM TRAFFIC CONTROL SIGNALER August Juan MD LAB POCT ORDERABLES - D EVICE Final Result Performing Organization Address [facility] Co de Phone Number PETRTARA [address] [place] [address] * POCT glucose (05/24/2024 11:59 AM TRAFFIC CONTROL SIGNALER) [facility] Glucose, POC 171 70 - 199 mg/dL Comment:Testing performed by : [facility], [address] [place] [address]., [address] Glucose comment 1 Use This Result JARED Comment:Testing performed by : [facility], [address] [place] [address]., [address] Glucose comment 2 RN/MD Notified JARED Comment:Testing performed by : [facility], [address] [place] [address]., [address] Blood 05/24/2024 11:5 9 AM TRAFFIC CONTROL SIGNALER 05/24/2024 11:59 AM TRAFFIC CONTROL SIGNALER August Juan MD LAB POCT ORDERABLES - D EVICE Final Result Performing Organization Address [facility] Co de Phone Number [place] [id number] [facility] [place] [address] * eGFR (05/24/2024 7:58 AM TRAFFIC CONTROL SIGNALER) [facility] eGFR 77 >=60 mL/min/1. 73 m2 Comment: [...] was last reviewed 2021. Testing performed by: [address] [address] Blood 05/24/2024 7:58 AM TRAFFIC CONTROL SIGNALER 05/24/2024 9:06 AM TRAFFIC CONTROL SIGNALER us Jenise Joyce NP LAB BLOOD ORDERABLES Final Re sult [facility] [address] [facility] Department [place] [address] * Differential, auto (05/24/2024 7:58 AM TRAFFIC CONTROL SIGNALER) Neutrophil abs 5.0 1.5 - 6.5 K/cumm Comment:Testing performed by : [address] [address] Imm gran abs 0.0 0.0 - 0.1 K/cumm JARED Comment:Testing performed by : [address] [address] Lymphocyte abs 1.2 0.8 - 3.3 K/cumm JARED Comment:Testing performed by : [address] [address] Monocyte abs 0.5 0.2 - 0.8 K/cumm JARED Comment:Testing performed by : [address] [address] Eosinophil abs 0.1 0.0 - 0.5 K/cumm JARED Comment:Testing performed by : [address] [address] Basophil abs 0.1 0.0 - 0.1 K/cumm JARED Comment:Testing performed by : [address] [address] Neutrophil pct 71.8 % [facility] Comment: Interpretive Data Percent cell count reference ranges are not reported, since discordance with absolute values may lead to misinterpretation of CBC data. Current Interpretive Data was last revised on 2017. Testing performed by: [address] [address] Imm gran pct 0.4 % [facility] Comment: Interpretive Data Percent cell count reference ranges are not reported, since discordance with absolute values may lead to misinterpretation of CBC data. Current Interpretive Data was last revised on 2017. Testing performed by: [address] [address] Lymphocyte pct 16.8 % [facility] Comment: Interpretive Data Percent cell count reference ranges are not reported, since discordance with absolute values may lead to misinterpretation of CBC data. Current Interpretive Data was last revised on 2017. Testing performed by: [address] [address] Monocyte pct 7.8 % [facility] Comment: Interpretive Data Percent cell count reference ranges are not reported, since discordance with absolute values may lead to misinterpretation of CBC data. Current Interpretive Data was last revised on 2017. Testing performed by: [address] [address] Eosinophil pct 1.9 % [facility] Comment: Interpretive Data Percent cell count reference ranges are not reported, since discordance with absolute values may lead to misinterpretation of CBC data. Current Interpretive Data was last revised on 2017. Testing performed by: [address] [address] Basophil pct 1.3 % [facility] Comment: Interpretive Data Percent cell count reference ranges are not reported, since discordance with absolute values may lead to misinterpretation of CBC data. Current Interpretive Data was last revised on 2017. Testing performed by: [address] [address] Blood 05/24/2024 7:58 AM TRAFFIC CONTROL SIGNALER 05/24/2024 9:08 AM TRAFFIC CONTROL SIGNALER us Jenise Joyce NP LAB BLOOD ORDERABLES Final Re sult [facility] [address] [facility] Department [place] [address] * (ABNORMAL) CBC with auto differential (05/24/2024 7:58 AM TRAFFIC CONTROL SIGNALER) WBC 7.0 3.8 - 9.9 K/cumm Comment:Testing performed by : [address] [address] Hgb 12.1 11.9 - 15.5 g/dL JAERD Comment:Testing performed by : [address] [address] Hct 37.8 35.6 - 45.5 % JARED Comment:Testing performed by : [address] [address] Plt 318 150 - 400 K/cumm JARED Comment:Testing performed by : [address] [address] MPV 9.4 9.1 - 12.3 fL JARED Comment:Testing performed by : [address] [address] RBC 4.92 3.90 - 5.20 M/cumm JARED Comment:Testing performed by : [address] [address] MCV 76.8(L) 81.3 - 96.4 fL AJRED Comment:Testing performed by : [address] [address] MCH 24.6(L) 27.1 - 33.3 pg JARED Comment:Testing performed by : [address] [address] MCHC 32.0(L) 32.3 - 35.7 g/dL JARED Comment:Testing performed by : [address] [address] RDW CV 15.2(H) 11.1 - 14.9 % JARED PÉREZ Comment:Testing performed by : [address] [address] RDW SD 41.7 35.7 - 48.1 fL JARED PÉREZ Comment:Testing performed by : [address] [address] NRBC abs 0.00 0.00 - 0.01 K/cumm JARED PÉREZ Comment:Testing performed by : [address] [address] Blood 05/24/2024 7:58 AM TRAFFIC CONTROL SIGNALER 05/24/2024 9:08 AM TRAFFIC CONTROL SIGNALER us Jenise Joyce NP LAB BLOOD ORDERABLES Final Re sult JARED [facility] Department [place] [address] * (ABNORMAL) Basic metabolic panel (05/24/2024 7:58 AM TRAFFIC CONTROL SIGNALER) Sodium 136 135 - 145 mmol/L Comment:Testing performed by : [address] [address] Potassium, pl 4.7 3.3 - 4.9 mmol/L JARED PÉREZ Comment: Hemolyzed; Potassium value may be falsely elevated by as much as 1.0 mmol/L. Suggest redraw and reanalysis. Testing performed by: [address] [address] Chloride 106 97 - 110 mmol/L JARED PÉREZ Comment:Testing performed by : [address] [address] CO2 20(L) 22 - 32 mmol/L JARED PÉREZ Comment:Testing performed by : [address] [address] Anion gap 10 2 - 15 mmol/L JARED PÉREZ Comment:Testing performed by : [address] [address] BUN 14 6 - 25 mg/dL JARED PÉREZ Comment:Testing performed by : [address] [address] Creatinine 0.81 0.60 - 1.10 mg/dL JARED PÉREZ Comment:Testing performed by : [address] [address] Glucose 99 70 - 199 mg/dL JARED [...] was last revised 2022. Testing performed by: [address] [address] Calcium 9.9 8.5 - 10.3 mg/dL JARED Comment:Testing performed by : [address] [address] Blood 05/24/2024 7:58 AM TRAFFIC CONTROL SIGNALER 05/24/2024 9:06 AM TRAFFIC CONTROL SIGNALER us Jenise Joyce NP LAB BLOOD ORDERABLES Final Re sult Performing Organization Address City/State/[facility] Co de Phone Number JARED [address] [facility] Department of Laboratories [place], [place] [id number] * POCT glucose (05/24/2024 7:42 AM TRAFFIC CONTROL SIGNALER) [facility] Glucose, POC 99 70 - 199 mg/dL Comment:Testing performed by : [address] [address] Glucose comment 1 Use This Result JARED PÉREZ Comment:Testing performed by : [address] [address] Glucose comment 2 RN/MD Notified JARED PÉREZ Comment:Testing performed by : [address] [address] Blood 05/24/2024 7:42 AM TRAFFIC CONTROL SIGNALER 05/24/2024 7:42 AM TRAFFIC CONTROL SIGNALER August Juan MD LAB POCT ORDERABLES - D EVICE Final Result Performing Organization Address [facility] de Phone Number JARED [address] [facility] [place] [address] * POCT glucose (05/23/2024 9:07 PM TRAFFIC CONTROL SIGNALER) Glucose, POC 164 70 - 199 mg/dL Comment:Testing performed by : [address] [address] Glucose comment 1 Use This Result JARED PÉREZ Comment:Testing performed by : [address] [address] Glucose comment 2 RN/MD Notified JARED Comment:Testing performed by : [address] [address] Blood 05/23/2024 9:07 PM TRAFFIC CONTROL SIGNALER 05/23/2024 9:07 PM TRAFFIC CONTROL SIGNALER August Juan MD LAB POCT ORDERABLES - D EVICE Final Result Performing Organization Address [facility] Co de Phone Number JARED [address] [place] [address] * POCT glucose (05/23/2024 5:55 PM TRAFFIC CONTROL SIGNALER) Glucose, POC 97 70 - 199 mg/dL Comment:Testing performed by : [address] [address] Glucose comment 1 Use This Result JARED Comment:Testing performed by : [address] [address] Glucose comment 2 RN/MD Notified JARED Comment:Testing performed by : [address] [address] Blood 05/23/2024 5:55 PM TRAFFIC CONTROL SIGNALER 05/23/2024 5:55 PM TRAFFIC CONTROL SIGNALER August Juan MD LAB POCT ORDERABLES - D EVICE Final Result Performing Organization Address [facility] Co de Phone Number JARED [address] [facility] [place] [address] * POCT glucose (05/23/2024 11:06 AM TRAFFIC CONTROL SIGNALER) Glucose, POC 191 70 - 199 mg/dL Comment:Testing performed by : [address] [address] Glucose comment 1 Use This Result JARED Comment:Testing performed by : [address] [address] Glucose comment 2 RN/MD Notified JARED Comment:Testing performed by : [address] [address] Blood 05/23/2024 11:0 6 AM TRAFFIC CONTROL SIGNALER 05/23/2024 11:06 AM TRAFFIC CONTROL SIGNALER August Juan MD LAB POCT ORDERABLES - D EVICE Final Result Performing Organization Address [facility] Co de Phone Number JARED [facility] [place] [address] * POCT glucose (05/23/2024 8:02 AM TRAFFIC CONTROL SIGNALER) Glucose, POC 109 70 - 199 mg/dL Comment:Testing performed by : [address] [address] Glucose comment 1 Use This Result JARED Comment:Testing performed by : [address] [address] Glucose comment 2 RN/MD Notified JARED Comment:Testing performed by : [address] [address] Blood 05/23/2024 8:02 AM TRAFFIC CONTROL SIGNALER 05/23/2024 8:02 AM TRAFFIC CONTROL SIGNALER August Juan MD LAB POCT ORDERABLES - D EVICE Final Result Performing Organization Address [facility] de Phone Number JARED [facility] [place] [address] * eGFR (05/23/2024 5:34 AM TRAFFIC CONTROL SIGNALER) eGFR >90 >=60 mL/min/1. 73 m2 Comment: [...] was last reviewed 2021. Testing performed by: [address] [address] Blood 05/23/2024 5:34 AM TRAFFIC CONTROL SIGNALER 05/23/2024 6:19 AM TRAFFIC CONTROL SIGNALER us Jenise Joyce NP LAB BLOOD ORDERABLES Final Re sult Performing Organization Address [facility] Co de Phone Number [facility] [address] [facility] Department [place] [address] * Differential, auto (05/23/2024 5:34 AM TRAFFIC CONTROL SIGNALER) Neutrophil abs 5.5 1.5 - 6.5 K/cumm Comment:Testing performed by : [address] [address] Imm gran abs 0.1 0.0 - 0.1 K/cumm JARED Comment:Testing performed by : [address] [address] Lymphocyte abs 1.6 0.8 - 3.3 K/cumm CERNER Comment:Testing performed by : [address] [address] Monocyte abs 0.8 0.2 - 0.8 K/cumm [facility] Comment:Testing performed by : [address] [address] Eosinophil abs 0.2 0.0 - 0.5 K/cumm [facility] Comment:Testing performed by : [address], [place]., [address] Basophil abs 0.1 0.0 - 0.1 K/cumm [facility] Comment:Testing performed by : [address] [address] Neutrophil pct 66.9 % [facility] Comment: Interpretive Data Percent cell count reference ranges are not reported, since discordance with absolute values may lead to misinterpretation of CBC data. Current Interpretive Data was last revised on 2017. Testing performed by: [address] [address] Imm gran pct 1.1 % [facility] Comment: Interpretive Data Percent cell count reference ranges are not reported, since discordance with absolute values may lead to misinterpretation of CBC data. Current Interpretive Data was last revised on 2017. Testing performed by: [address] [address] Lymphocyte pct 19.0 % [facility] Comment: Interpretive Data Percent cell count reference ranges are not reported, since discordance with absolute values may lead to misinterpretation of CBC data. Current Interpretive Data was last revised on 2017. Testing performed by: [address] [address] Monocyte pct 9.6 % CERNER Comment: Interpretive Data Percent cell count reference ranges are not reported, since discordance with absolute values may lead to misinterpretation of CBC data. Current Interpretive Data was last revised on 2017. Testing performed by: [address] [address] Eosinophil pct 2.1 % CERNER Comment: Interpretive Data Percent cell count reference ranges are not reported, since discordance with absolute values may lead to misinterpretation of CBC data. Current Interpretive Data was last revised on 2017. Testing performed by: [address] [address] Basophil pct 1.3 % JARED PÉREZ Comment: Interpretive Data Percent cell count reference ranges are not reported, since discordance with absolute values may lead to misinterpretation of CBC data. Current Interpretive Data was last revised on 2017. Testing performed by: [address] [address] Blood 05/23/2024 5:34 AM TRAFFIC CONTROL SIGNALER 05/23/2024 6:19 AM TRAFFIC CONTROL SIGNALER us Jenise Joyce NP LAB BLOOD ORDERABLES Final Re sult JARED [address] [facility] Department [place] [address] * (ABNORMAL) CBC with auto differential (05/23/2024 5:34 AM TRAFFIC CONTROL SIGNALER) WBC 8.2 3.8 - 9.9 K/cumm Comment:Testing performed by : [address] [address] Hgb 11.9 11.9 - 15.5 g/dL JARED PÉREZ Comment:Testing performed by : [address] [address] Hct 37.9 35.6 - 45.5 % JARED PÉREZ Comment:Testing performed by : [address] [address] Plt 295 150 - 400 K/cumm JARED PÉREZ Comment:Testing performed by : [address] [address] MPV 9.4 9.1 - 12.3 fL JARED PÉREZ Comment:Testing performed by : [address] [address] RBC 4.95 3.90 - 5.20 M/cumm JARED PÉREZ Comment:Testing performed by : [address] [address] MCV 76.6(L) 81.3 - 96.4 fL JARED PÉREZ Comment:Testing performed by : [address] [address] MCH 24.0(L) 27.1 - 33.3 pg JARED PÉREZ Comment:Testing performed by : [address] [address] MCHC 31.4(L) 32.3 - 35.7 g/dL JARED PÉREZ Comment:Testing performed by : [address] [address] RDW CV 15.3(H) 11.1 - 14.9 % JARED PÉREZ Comment:Testing performed by : [address] [address] RDW SD 42.3 35.7 - 48.1 fL JARED PÉREZ Comment:Testing performed by : [address] [address] NRBC abs 0.00 0.00 - 0.01 K/cumm JARED PÉREZ Comment:Testing performed by : [address], [address] Blood 05/23/2024 5:34 AM TRAFFIC CONTROL SIGNALER 05/23/2024 6:19 AM TRAFFIC CONTROL SIGNALER us Jenise Joyce NP LAB BLOOD ORDERABLES Final Re sult JARED [address] [facility] Department of Laboratories [place], [place] [id number] * (ABNORMAL) Basic metabolic panel (05/23/2024 5:34 AM TRAFFIC CONTROL SIGNALER) Sodium 138 135 - 145 mmol/L Comment:Testing performed by : [address] [address] Potassium, pl 4.1 3.3 - 4.9 mmol/L JARED PÉREZ Comment:Testing performed by : [address] [address] Chloride 107 97 - 110 mmol/L JARED PÉREZ Comment:Testing performed by : [address] [address] CO2 20(L) 22 - 32 mmol/L JARED Comment:Testing performed by : [address] [address] Anion gap 11 2 - 15 mmol/L JARED Comment:Testing performed by : [address] [address] BUN 13 6 - 25 mg/dL JARED Comment:Testing performed by : [address] [address] Creatinine 0.70 0.60 - 1.10 mg/dL JARED Comment:Testing performed by : [address] [address] Glucose 106 70 - 199 mg/dL JARED [...] was last revised 2022. Testing performed by: [address] [address] Calcium 9.7 8.5 - 10.3 mg/dL JARED Comment:Testing performed by : [address] [address] Blood 05/23/2024 5:34 AM TRAFFIC CONTROL SIGNALER 05/23/2024 6:19 AM TRAFFIC CONTROL SIGNALER us Jenise Joyce NP LAB BLOOD ORDERABLES Final Re sult JARED PÉREZ [address] [facility] Department [place] [address] * POCT glucose (05/22/2024 9:13 PM TRAFFIC CONTROL SIGNALER) Glucose, POC 171 70 - 199 mg/dL Comment:Testing performed by : [facility], [address] [place] [address]., [address] Glucose comment 1 Use This Result JARED PÉREZ Comment:Testing performed by : [facility], [address] [place] [address]., [address] Blood 05/22/2024 9:13 PM TRAFFIC CONTROL SIGNALER 05/22/2024 9:13 PM TRAFFIC CONTROL SIGNALER us Christiano Cummins MD LAB POCT ORDERABLES - DEVICE Final Result PETRTARA ELISA [address] [facility] Department [place] [address] * CTA Head Neck W WO Contrast (05/22/2024 8:04 PM TRAFFIC CONTROL SIGNALER) Anatomical Region Laterality Modality Head and Neck N/A Computed Tomogra phy 05/22/2024 10:1 0 PM TRAFFIC CONTROL SIGNALER Narrative 05/22/2024 10:25 PM TRAFFIC CONTROL SIGNALER EXAM DESCRIPTION: CTA HEAD NECK W WO [...] thickening. ORBITS: No significant abnormality. INTRACRANIAL VESSELS [place]: The posterior communicating arteries are not well visualized bilaterally. The afmocj-vg-Sgqefn is otherwise intact. ANTERIOR CIRCULATION: There is [...] by Duyen Bautista M.D. SN: Report ID: [id number] Reading Location: [id number] Procedure Note Duyen Bautista MD - 05/22/2024 [...] thickening. ORBITS: No significant abnormality. INTRACRANIAL VESSELS [place]: The posterior communicating arteries are not wellvisualized bilaterally. The lxdvxg-sd-Glqmcs is otherwise intact. ANTERIOR CIRCULATION: There is [...] by Duyen Bautista M.D. SN: Report ID: [id number] Reading Location: [place] [address] us Amita Bledsoe MD IMG CT PROCEDURES Fin al Result * POCT glucose (05/22/2024 6:14 PM TRAFFIC CONTROL SIGNALER) [facility] Signature Glucose, POC 90 70 - 199 mg/dL Comment:Testing performed by : [address] [address] Glucose comment 1 Use This Result JARED Comment:Testing performed by : [address] [place]., [address] Glucose comment 2 RN/MD Notified JARED PÉREZ Comment:Testing performed by : [facility], [address] [place] [address]., [address] Blood 05/22/2024 6:14 PM TRAFFIC CONTROL SIGNALER 05/22/2024 6:14 PM TRAFFIC CONTROL SIGNALER us Christiano Cummins MD LAB POCT ORDERABLES - DEVICE Final Result Performing Organization Address City/State/[facility] Co de Phone Number JARED [address] [facility] Department [place] [address] * TRANSTHORACIC ECHO (TTE) COMPLETE W DOPPLER/CF W CONTRAST W BUBBLE (05/22/2024 2:20 PM TRAFFIC CONTROL SIGNALER) Anatomical Region Laterality Modality Ultrasound 05/22/2024 1:27 PM TRAFFIC CONTROL SIGNALER Narrative 05/23/2024 11:17 AM TRAFFIC CONTROL SIGNALER Adult Echocardiogram + ----- + :Name: PINKY YAO Study Date: 05/22/2024 Status: E : : Patient Location: [address]^[id number]^MHeight: 65 in : : Weight: 170 lbBP: [...] bubble study shows no evidence of intracardiac pwkco-bw-bufv shunting, i.e. no evidence of patent foramen [...] bubble study shows no evidence of intracardiac uybnh-os-qjbq shunting, i.e. no evidence of patent foramen [...] Date: 05/22/2024Status: MHE : : Patient Location: [address]^[id number]^MHeight: 65 in : : : 170 lbBP: [...] bubble study shows no evidence of intracardiac ewhcp-ex-mcsc shunting,i.e. no evidence of patent foramen ovale [...] bubble study shows no evidence of intracardiac gomap-mi-ogal shunting,i.e. no evidence of patent foramen ovale [...] lt * POCT glucose (05/22/2024 12:48 PM TRAFFIC CONTROL SIGNALER) [facility] Glucose, POC 172 70 - 199 mg/dL Comment:Testing performed by : [address] [address] Glucose comment 1 Use This Result JARED Comment:Testing performed by : [address] [address] Glucose comment 2 RN/MD Notified JARED Comment:Testing performed by : [address] [address] Blood 05/22/2024 12:4 8 PM TRAFFIC CONTROL SIGNALER 05/22/2024 12:48 PM TRAFFIC CONTROL SIGNALER us Christiano Cummins MD LAB POCT ORDERABLES - DEVICE Final Result JARED [address] [facility] Department [place] [address] * ECG 12 lead (05/22/2024 10:35 AM TRAFFIC CONTROL SIGNALER) [facility] Ventricular Rate EKG/Min 70 BPM [facility] Atrial Rate 70 BPM [facility] WI-Interval (MSEC) 210 ms [facility] QRS-Interval (MSEC) 92 ms [facility] QT-Interval (MSEC) 412 ms [facility] QTc 444 ms [facility] P [place] 39 degrees [facility] R [place] -9 degrees [facility] T [place] -3 degrees [facility] Diagnosis Sinus rhythm with 1st degree A-V block Moderate voltage criteria for LVH, may be normal variant Inferior infarct , age undetermined Abnormal ECG No previous ECGs available Confirmed by ASPNE RAHMAN M.D. ([id number]) on 05/23/2024 7:37:36 AM [facility] 05/22/2024 10:3 5 AM TRAFFIC CONTROL SIGNALER 05/23/2024 7:37 AM TRAFFIC CONTROL SIGNALER Jenise Joyce NP ECG ORDERABLES Final Result [facility] * US Carotids Duplex Bilateral (05/22/2024 9:28 AM TRAFFIC CONTROL SIGNALER) Anatomical Region Laterality Modality Vascular Bilateral Ultrasound 05/22/2024 Narrative 05/26/2024 7:36 AM TRAFFIC CONTROL SIGNALER [employer] Job ID: [id number] Amphion Document ID: [id number] Dictated date/time: [id number] BILATERAL CAROTID DUPLEX REASON FOR EXAM Stroke. [...] internal carotid arteries. Job ID/Internal Job ID: [id number] Jenise Joyce NP IMG US PROCEDURES Final Resul t * POCT glucose (05/22/2024 8:56 AM TRAFFIC CONTROL SIGNALER) [facility] Glucose, POC 105 70 - 199 mg/dL Comment:Testing performed by : [facility], [address] [place] [address]., [address] Glucose comment 1 Use This Result JARED PÉREZ Comment:Testing performed by : [address] [address] Glucose comment 2 RN/MD Notified JARED PÉREZ Comment:Testing performed by : [address] [address] Blood 05/22/2024 8:56 AM TRAFFIC CONTROL SIGNALER 05/22/2024 8:56 AM TRAFFIC CONTROL SIGNALER Christiano Cummins MD LAB POCT ORDERABLES - DEVICE Final Result Performing Organization Address [facility] Co de Phone Number JARED [address] [place] [address] * (ABNORMAL) Iron profile w/ IBC (05/22/2024 8:03 AM TRAFFIC CONTROL SIGNALER) Pathologist [facility] Iron 46 35 - 145 mcg/dL Comment:Testing performed by : [address] [address] TIBC 319 250 - 400 mcg/dL JARED PÉREZ Comment:Testing performed by : [address] [address] Transferrin saturation 14(L) 20 - 50 % JARED PÉREZ Comment:Testing performed by : [address] [address] Blood 05/22/2024 8:03 AM TRAFFIC CONTROL SIGNALER 05/22/2024 9:04 AM TRAFFIC CONTROL SIGNALER us Christiano Cummins MD LAB BLOOD ORDERABLES Final R esult Performing Organization Address City/[facility]/ZIP Co de Phone Number JARED [address] [place] [address] * (ABNORMAL) Vitamin D 25 hydroxy (05/22/2024 8:03 AM TRAFFIC CONTROL SIGNALER) Vitamin D 25-OH 9.0(L) 30.0 - 80.0 ng/mL Blood 05/22/2024 8:03 AM TRAFFIC CONTROL SIGNALER 05/22/2024 12:51 PM TRAFFIC CONTROL SIGNALER Christiano Cummins MD LAB BLOOD ORDERABLES Final R esult Performing Organization Address City/[facility] Co de Phone Number JARED [address] [place] [address] * Folate (05/22/2024 8:03 AM TRAFFIC CONTROL SIGNALER) Folic acid 6.0 >=5.0 ng/mL Comment:Testing performed by : [address] [address] Blood 05/22/2024 8:03 AM TRAFFIC CONTROL SIGNALER 05/22/2024 9:04 AM TRAFFIC CONTROL SIGNALER Christiano Cummins MD LAB BLOOD ORDERABLES Final R esult Performing Organization Address City/[facility] Co de Phone Number JARED [address] [place] [address] * eGFR (05/22/2024 5:52 AM TRAFFIC CONTROL SIGNALER) eGFR >90 >=60 mL/min/1. 73 m2 Comment: [...] was last reviewed 2021. Testing performed by: [address] [place]., [address] Blood 05/22/2024 5:52 AM TRAFFIC CONTROL SIGNALER 05/22/2024 6:01 AM TRAFFIC CONTROL SIGNALER us Jenise Joyce NP LAB BLOOD ORDERABLES Final Re sult [facility] [address] [facility] Department [place] [address] * Differential, auto (05/22/2024 5:52 AM TRAFFIC CONTROL SIGNALER) Neutrophil abs 5.2 1.5 - 6.5 K/cumm Comment:Testing performed by : [address] [address] Imm gran abs 0.0 0.0 - 0.1 K/cumm JARED Comment:Testing performed by : [address] [address] Lymphocyte abs 1.3 0.8 - 3.3 K/cumm JARED Comment:Testing performed by : [address] [address] Monocyte abs 0.7 0.2 - 0.8 K/cumm JARED Comment:Testing performed by : [address] [address] Eosinophil abs 0.1 0.0 - 0.5 K/cumm JARED Comment:Testing performed by : [address] [address] Basophil abs 0.1 0.0 - 0.1 K/cumm JARED Comment:Testing performed by : [address] [address] Neutrophil pct 70.2 % JARED Comment: Interpretive Data Percent cell count reference ranges are not reported, since discordance with absolute values may lead to misinterpretation of CBC data. Current Interpretive Data was last revised on 2017. Testing performed by: [address] [address] Imm gran pct 0.3 % JARED Comment: Interpretive Data Percent cell count reference ranges are not reported, since discordance with absolute values may lead to misinterpretation of CBC data. Current Interpretive Data was last revised on 2017. Testing performed by: [address] [address] Lymphocyte pct 17.7 % [facility] Comment: Interpretive Data Percent cell count reference ranges are not reported, since discordance with absolute values may lead to misinterpretation of CBC data. Current Interpretive Data was last revised on 2017. Testing performed by: [address] [address] Monocyte pct 8.8 % [facility] Comment: Interpretive Data Percent cell count reference ranges are not reported, since discordance with absolute values may lead to misinterpretation of CBC data. Current Interpretive Data was last revised on 2017. Testing performed by: [address] [address] Eosinophil pct 1.8 % [facility] Comment: Interpretive Data Percent cell count reference ranges are not reported, since discordance with absolute values may lead to misinterpretation of CBC data. Current Interpretive Data was last revised on 2017. Testing performed by: [address] [address] Basophil pct 1.2 % [facility] Comment: Interpretive Data Percent cell count reference ranges are not reported, since discordance with absolute values may lead to misinterpretation of CBC data. Current Interpretive Data was last revised on 2017. Testing performed by: [address] [address] Blood 05/22/2024 5:52 AM TRAFFIC CONTROL SIGNALER 05/22/2024 6:01 AM TRAFFIC CONTROL SIGNALER us Jenise Joyce NP LAB BLOOD ORDERABLES Final Re sult JARED PÉREZ [address] [facility] Department [place] [address] * (ABNORMAL) CBC with auto differential (05/22/2024 5:52 AM TRAFFIC CONTROL SIGNALER) WBC 7.4 3.8 - 9.9 K/cumm Comment:Testing performed by : [address], [address] Hgb 11.6(L) 11.9 - 15.5 g/dL JARED Comment:Testing performed by : [address], [address] Hct 37.4 35.6 - 45.5 % JARED Comment:Testing performed by : [address], [address] Plt 278 150 - 400 K/cumm JARED Comment:Testing performed by : [address], [address] MPV 9.2 9.1 - 12.3 fL JARED Comment:Testing performed by : [address], [address] RBC 4.85 3.90 - 5.20 M/cumm JARED Comment:Testing performed by : [address], [address] MCV 77.1(L) 81.3 - 96.4 fL JARED Comment:Testing performed by : [address], [address] MCH 23.9(L) 27.1 - 33.3 pg JARED Comment:Testing performed by : [address], [address] MCHC 31.0(L) 32.3 - 35.7 g/dL JARED Comment:Testing performed by : [address], [address] RDW CV 15.2(H) 11.1 - 14.9 % JARED Comment:Testing performed by : [address], [address] RDW SD 42.2 35.7 - 48.1 fL JARED Comment:Testing performed by : [address], [address] NRBC abs 0.00 0.00 - 0.01 K/cumm JARED Comment:Testing performed by : [address], [address] Blood 05/22/2024 5:52 AM TRAFFIC CONTROL SIGNALER 05/22/2024 6:01 AM TRAFFIC CONTROL SIGNALER Jenise Joyce NP LAB BLOOD ORDERABLES Final Re sult Performing Organization Address [facility] Co de Phone Number [address] [address] * CRP (acute phase) (05/22/2024 5:52 AM TRAFFIC CONTROL SIGNALER) CRP 1.8 <=10.0 mg/L Comment:Testing performed by : [address] [address] Blood 05/22/2024 5:52 AM TRAFFIC CONTROL SIGNALER 05/22/2024 6:01 AM TRAFFIC CONTROL SIGNALER Christiano Cummins MD LAB BLOOD ORDERABLES Final R esult Performing Organization Address [facility] Co de Phone Number [address] [address] * Magnesium (05/22/2024 5:52 AM TRAFFIC CONTROL SIGNALER) Magnesium 2.2 1.4 - 2.5 mg/dL Comment:Testing performed by : [address] [address] Blood 05/22/2024 5:52 AM TRAFFIC CONTROL SIGNALER 05/22/2024 6:01 AM TRAFFIC CONTROL SIGNALER Christiano Cumimns MD LAB BLOOD ORDERABLES Final R esult Performing Organization Address [facility] Co de Phone Number [address] [address] * Ferritin (05/22/2024 5:52 AM TRAFFIC CONTROL SIGNALER) Ferritin 18 15 - 150 ng/mL Comment:Testing performed by : [address] [address] Blood 05/22/2024 5:52 AM TRAFFIC CONTROL SIGNALER 05/22/2024 6:01 AM TRAFFIC CONTROL SIGNALER us Christiano Cummins MD LAB BLOOD ORDERABLES Final R esult JARED PÉREZ [address] [facility] Department [place] [address] * Basic metabolic panel (05/22/2024 5:52 AM TRAFFIC CONTROL SIGNALER) Sodium 139 135 - 145 mmol/L Comment:Testing performed by : [address] [address] Potassium, pl 4.0 3.3 - 4.9 mmol/L JARED Comment:Testing performed by : [address] [address] Chloride 107 97 - 110 mmol/L JARED Comment:Testing performed by : [address] [address] CO2 25 22 - 32 mmol/L JARED Comment:Testing performed by : [address] [address] Anion gap 7 2 - 15 mmol/L JARED Comment:Testing performed by : [address] [address] BUN 12 6 - 25 mg/dL JARED Comment:Testing performed by : [address] [address] Creatinine 0.70 0.60 - 1.10 mg/dL JARED Comment:Testing performed by : [address] [address] Glucose 106 70 - 199 mg/dL JARED [...] was last revised 2022. Testing performed by: [facility], [address] [place] [address]., [address] Calcium 9.7 8.5 - 10.3 mg/dL JARED PÉREZ Comment:Testing performed by : [address] [address] Blood 05/22/2024 5:52 AM TRAFFIC CONTROL SIGNALER 05/22/2024 6:01 AM TRAFFIC CONTROL SIGNALER Jenise Joyce NP LAB BLOOD ORDERABLES Final Re sult Performing Organization Address [facility] Co de Phone Number [facility] [address] [facility] [place] [address] * POCT glucose (05/21/2024 7:39 PM TRAFFIC CONTROL SIGNALER) [facility] Glucose, POC 120 70 - 199 mg/dL Comment:Testing performed by : [address] [address] Glucose comment 1 Use This Result JARED PÉREZ Comment:Testing performed by : [address] [address] Glucose comment 2 RN/MD Notified JARED Comment:Testing performed by : [address] [address] Blood 05/21/2024 7:39 PM TRAFFIC CONTROL SIGNALER 05/21/2024 7:39 PM TRAFFIC CONTROL SIGNALER Zay Toledo MD LAB POCT ORDERABLE S - DEVICE Final Result Performing Organization Address [facility] Co de Phone Number [facility] [address] [facility] [place] [address] * MRI Brain WO Contrast (05/21/2024 6:34 PM TRAFFIC CONTROL SIGNALER) Anatomical Region Laterality Modality Head and Neck N/A Magnetic Resonan ce 05/21/2024 8:27 PM TRAFFIC CONTROL SIGNALER Narrative 05/21/2024 8:46 PM TRAFFIC CONTROL SIGNALER EXAM DESCRIPTION: MRI BRAIN WO CONTRAST REASON [...] Johnie Barrera M.D. MF: VENUS Report ID: [id number] Reading Location: [id number] Procedure Note Johnie Barrera, - 05/21/2024 EXAM [...] Johnie Barrera M.D. MF: VENUS Report ID: [id number] Reading Location: [id number] us Jenise Joyce NP IMG MRI PROCEDURES Final Resu lt * CT Body Outside Reference (05/21/2024 4:52 PM TRAFFIC CONTROL SIGNALER) Narrative JENELLE_NADYA_KRISTOFER_MHE - 05/21/2024 4:52 PM TRAFFIC CONTROL SIGNALER This order has been auto-finalized and does not contain a result. us Provider Transcribed Order IMG CT PROCEDURES Fin al Result JENELLE_NADYA_MHB_MHE * CT Body Outside Reference (05/21/2024 4:46 PM TRAFFIC CONTROL SIGNALER) Narrative ROSALIND_KRISTOFER_MHE - 05/21/2024 4:46 PM TRAFFIC CONTROL SIGNALER This order has been auto-finalized and does not contain a result. us Provider Transcribed Order IMG CT PROCEDURES Fin al Result Performing Organization Address [facility] de Phone Number JENELLE_NADYA_MHB_MHE * POCT glucose (05/21/2024 4:31 PM TRAFFIC CONTROL SIGNALER) Pathologist [facility] Glucose, POC 113 70 - 199 mg/dL Comment:Testing performed by : [facility], [address] [place] [address]., [address] Glucose comment 1 Use This Result JARED Comment:Testing performed by : [facility], [address] [place] [address]., [address] Glucose comment 2 RN/MD Notified JARED Comment:Testing performed by : [facility], [address] [place] [address]., [address] Blood 05/21/2024 4:31 PM TRAFFIC CONTROL SIGNALER 05/21/2024 4:31 PM TRAFFIC CONTROL SIGNALER Zay Toledo MD LAB POCT ORDERABLE S - DEVICE Final Result Performing Organization Address [facility] de Phone Number JARED [address] [facility] Department [place] [address] * eGFR (05/21/2024 3:03 PM TRAFFIC CONTROL SIGNALER) eGFR 68 >=60 mL/min/1. 73 m2 Comment: [...] was last reviewed 2021. Testing performed by: [address] [address] Blood 05/21/2024 3:03 PM TRAFFIC CONTROL SIGNALER 05/21/2024 3:05 PM TRAFFIC CONTROL SIGNALER us Jenise Joyce NP LAB BLOOD ORDERABLES Final Re sult JARED [address] [facility] Department [place] [address] * Differential, auto (05/21/2024 3:03 PM TRAFFIC CONTROL SIGNALER) Neutrophil abs 4.0 1.5 - 6.5 K/cumm Comment:Testing performed by : [address] [address] Imm gran abs 0.0 0.0 - 0.1 K/cumm JARED Comment:Testing performed by : [address] [address] Lymphocyte abs 1.2 0.8 - 3.3 K/cumm JARED Comment:Testing performed by : [address] [address] Monocyte abs 0.6 0.2 - 0.8 K/cumm JARED Comment:Testing performed by : [address] [address] Eosinophil abs 0.2 0.0 - 0.5 K/cumm JARED Comment:Testing performed by : [address] [address] Basophil abs 0.1 0.0 - 0.1 K/cumm JARED Comment:Testing performed by : [address] [address] Neutrophil pct 66.3 % JARED Comment: Interpretive Data Percent cell count reference ranges are not reported, since discordance with absolute values may lead to misinterpretation of CBC data. Current Interpretive Data was last revised on 2017. Testing performed by: [address] [address] Imm gran pct 0.3 % JARED Comment: Interpretive Data Percent cell count reference ranges are not reported, since discordance with absolute values may lead to misinterpretation of CBC data. Current Interpretive Data was last revised on 2017. Testing performed by: [address] [address] Lymphocyte pct 19.6 % [facility] Comment: Interpretive Data Percent cell count reference ranges are not reported, since discordance with absolute values may lead to misinterpretation of CBC data. Current Interpretive Data was last revised on 2017. Testing performed by: [address] [address] Monocyte pct 9.7 % [facility] Comment: Interpretive Data Percent cell count reference ranges are not reported, since discordance with absolute values may lead to misinterpretation of CBC data. Current Interpretive Data was last revised on 2017. Testing performed by: [address] [address] Eosinophil pct 2.5 % [facility] Comment: Interpretive Data Percent cell count reference ranges are not reported, since discordance with absolute values may lead to misinterpretation of CBC data. Current Interpretive Data was last revised on 2017. Testing performed by: [address] [address] Basophil pct 1.6 % [facility] Comment: Interpretive Data Percent cell count reference ranges are not reported, since discordance with absolute values may lead to misinterpretation of CBC data. Current Interpretive Data was last revised on 2017. Testing performed by: [address] [address] Blood 05/21/2024 3:03 PM TRAFFIC CONTROL SIGNALER 05/21/2024 3:05 PM TRAFFIC CONTROL SIGNALER [employer] LAB BLOOD ORDERABLES Final Re sult Performing Organization Address City/[facility] Co de Phone Number JARED [address] [place] [address] * Thyroid Function [place] (05/21/2024 3:03 PM TRAFFIC CONTROL SIGNALER) Pathologist [facility] TSH 1.23 0.30 - 4.20 mcIUnit/mL Comment:Testing performed by : [address] [address] Blood 05/21/2024 3:03 PM TRAFFIC CONTROL SIGNALER 05/21/2024 3:05 PM TRAFFIC CONTROL SIGNALER [employer] LAB BLOOD ORDERABLES Final Re sult Performing Organization Address [facility] de Phone Number JARED [facility] [place] [address] * (ABNORMAL) CBC with auto differential (05/21/2024 3:03 PM TRAFFIC CONTROL SIGNALER) Pathologist [facility] WBC 6.1 3.8 - 9.9 K/cumm Comment:Testing performed by : [address] [address] Hgb 11.8(L) 11.9 - 15.5 g/dL JARED PÉREZ Comment:Testing performed by : [address] [address] Hct 37.7 35.6 - 45.5 % JARED PÉREZ Comment:Testing performed by : [address] [address] Plt 291 150 - 400 K/cumm JARED PÉREZ Comment:Testing performed by : [address] [address] MPV 9.4 9.1 - 12.3 fL JARED PÉREZ Comment:Testing performed by : [address] [address] RBC 4.86 3.90 - 5.20 M/cumm JARED PÉREZ Comment:Testing performed by : [address] [address] MCV 77.6(L) 81.3 - 96.4 fL JARED Comment:Testing performed by : [address] [address] MCH 24.3(L) 27.1 - 33.3 pg JARED PÉREZ Comment:Testing performed by : [address] [address] MCHC 31.3(L) 32.3 - 35.7 g/dL JARED Comment:Testing performed by : [address] [address] RDW CV 15.3(H) 11.1 - 14.9 % JARED Comment:Testing performed by : [address] [address] RDW SD 42.9 35.7 - 48.1 fL JARED Comment:Testing performed by : [address] [address] NRBC abs 0.00 0.00 - 0.01 K/cumm JARED Comment:Testing performed by : [address] [address] Blood 05/21/2024 3:03 PM TRAFFIC CONTROL SIGNALER 05/21/2024 3:05 PM TRAFFIC CONTROL SIGNALER Jenise Joyce NP LAB BLOOD ORDERABLES Final Re sult JARED [address] [facility] Department of Laboratories [place], [place] [address] * (ABNORMAL) Hemoglobin A1c (05/21/2024 3:03 PM TRAFFIC CONTROL SIGNALER) Hgb A1C 6.7(H) 4.0 - 5.6 % Comment:Testing performed by : [address] [address] Estimated Average Glucose 146 mg/dL JARED PÉREZ Comment: The ADA recommends reporting an estimated Average Glucose (eAG) with all Hemoglobin A1c results using the equation derived from a study of 507 normal and diabetic adults. Minority populations were underrepresented and children were not included. (Diabetes Care 31:0762-0311, 2008). The eAG is not equivalent to a fasting glucose. Testing performed by: [address] [address] Blood 05/21/2024 3:03 PM TRAFFIC CONTROL SIGNALER 05/21/2024 3:05 PM TRAFFIC CONTROL SIGNALER Jenise Joyce NP LAB BLOOD ORDERABLES Final Re sult JARED [address] [facility] Department [place] [address] * Lipid panel (05/21/2024 3:03 PM TRAFFIC CONTROL SIGNALER) Cholesterol 167 30 - 199 mg/dL Comment: [...] last revised on 2017. Testing performed by: [facility], [address] [place] [address]., [address] Triglycerides 100 <=149 mg/dL JARED PÉREZ Comment: [...] last revised on 2017. Testing performed by: [facility], [address] [place] [address]., [address] HDL 44 >=40 mg/dL JARED PÉREZ Comment: [...] last revised on 2017. Testing performed by: [facility], [address] [place] [address]., [address] LDL, calculated 105 <=129 mg/dL JARED PÉREZ [...] last revised on 2023. Testing performed by: [facility], [address] [place] [address]., [address] Non-HDL Cholesterol 123 mg/dL JARED PÉREZ Comment: [...] last revised on 2017. Testing performed by: [address] [address] Chol/HDL ratio 4 JARED Comment:Testing performed by : [address] [address] Blood 05/21/2024 3:03 PM TRAFFIC CONTROL SIGNALER 05/21/2024 3:05 PM TRAFFIC CONTROL SIGNALER us Jenise Joyce NP LAB BLOOD ORDERABLES Final Re sult JARED [address] [facility] Department [place] [address] * Basic metabolic panel (05/21/2024 3:03 PM TRAFFIC CONTROL SIGNALER) Sodium 140 135 - 145 mmol/L Comment:Testing performed by : [address] [address] Potassium, pl 4.1 3.3 - 4.9 mmol/L JARED Comment:Testing performed by : [address] [address] Chloride 107 97 - 110 mmol/L JARED Comment:Testing performed by : [address] [address] CO2 24 22 - 32 mmol/L JARED Comment:Testing performed by : [address] [address] Anion gap 9 2 - 15 mmol/L JARED Comment:Testing performed by : [address] [address] BUN 12 6 - 25 mg/dL JARED Comment:Testing performed by : [address] [address] Creatinine 0.90 0.60 - 1.10 mg/dL JARED Comment:Testing performed by : [address] [address] Glucose 99 70 - 199 mg/dL JARED [...] was last revised 2022. Testing performed by: [facility], [address] [place] [address]., [address] Calcium 9.6 8.5 - 10.3 mg/dL JARED Comment:Testing performed by : [address] [address] Blood 05/21/2024 3:03 PM TRAFFIC CONTROL SIGNALER 05/21/2024 3:05 PM TRAFFIC CONTROL SIGNALER us Jenise Joyce NP LAB BLOOD ORDERABLES Final Re sult Performing Organization Address City/[facility] Co de Phone Number JARED [address] [facility] Department [place] [address] * CT Body Outside Reference (05/20/2024 12:00 AM TRAFFIC CONTROL SIGNALER) Narrative JENELLE_DAWITBETTE_MHB_MHE - 05/21/2024 4:53 PM TRAFFIC CONTROL SIGNALER This order has been auto-finalized and does not contain a result. us Provider Transcribed Order IMG CT PROCEDURES Fin al Result Performing Organization Address City/[facility] Co de Phone Number RAD_CLARIO_MHB_MHE from Last 3 Months Insurance [employer] SENIOR SUPPLEMENT MEDICARE [id number] MEDICARE ADVANTAGE [facility] MEDICARE ADVANTAGE Advance Directives For more information, please contact: [phone] * Full Code (Latest Code Status on File) Date Activated Date Inactivated Comments 05/21/2024 3:27 PM 05/25/2024 7:46 PM Care Teams Fmd Teacher Relationship Specialty Start Date End Date Johnie Ordaz MD PCP - General Internal Medicine 08/23/20
--- OUTSIDE RECORDS SUMMARY | 2024-08-13 17:40 | XMS_ITS | Data Portability ---
Author Organization [place] - [facility], Main Office Address [address] [place] [address] Care Team Providers Care Supervisor Marble Name Role Phone NOEL ORDAZ Primary Care Provider NOEL ORDAZ Referring Provider [phone] Assessment Encounter Date Assessment Date Assessment LastModified [...] schedule on or after 05/03/2024. Thanks 2023 [facility] [place], [address] [facility], [place], [address], 04/11/2024 10:10:34 physical therapist referral - Please contact patient to schedule 2023 [facility], [address] [place], [address], 02/15/2024 14:55:44 occupatio nal therapist referral - Please contact patient to schedule [address] Physical, Occupational [facility] Re[facility], [address] [place], [address], 02/02/2024 21:15:03 Procedures None recorded. Surgeries None recorded. Imaging XR, shoulder, 2 or more view 2023 [facility], [address] [place] [address], [address], 04/10/2024 20:15:51 XR, wrist, 3 or more view 2023 [facility], [address] [place] [address], [address], 04/10/2024 20:15:51 XR, shoulder, 2 or more view 2023 024 [facility], [address] [place] [address], [address], 03/01/2024 17:07:46 XR, wrist 2023 024 [facility] hospital7 [facility], [address] [place] [address], [address], 03/01/2024 17:07:46 XR, shoulder 2023 024 [email or web address] [facility] [place], [address], [place], [address], 02/03/2024 16:23:40 XR, wrist 2023 024 [email or web address] [facility] [place], [address], [place], [address], 02/03/2024 16:24:00 XR, shoulder, 2 or more view 2023 024 [email or web address] [facility] [place], [address], [place], [address], 01/19/2024 16:27:44 XR, wrist, 3 or more view 2023 024 [email or web address] [facility] [place], [address], [place], [address], 01/19/2024 16:27:44 XR, knee, 3 view 2023 024 [facility] [place], [address], [place], [address], 01/05/2024 16:35:10 Medication Orders None recorded. Patient [...] resul t No observ ation record ed. [email or web address] Not Available 01/03 10:07:57 01/05/20 24 XR, knee, 3 view No observ ation record ed. [email or web address] [facility] [place] [address], [place], [address], 01/05/2024 10:57:36 01/19/20 24 XR, shoul rosemary, 2 or more view No observ ation record ed. [email or web address] [facility] [place] [address], [place], [address], 01/19/2024 11:15:11 01/19/20 24 XR, wrist , 3 or more view No observ ation record ed. [email or web address] [facility] [place] [address], [place], [address], 01/19/2024 11:15:16 02/02/20 24 XR, shoul rosemary No observ ation record ed. [email or web address] [facility] [place] [address], [place], [address], 02/02/2024 10:34:49 02/02/20 24 XR, wrist No observ ation record ed. [email or web address] [facility] [place] [address], [place], [address], 02/02/2024 10:34:57 02/28/20 24 XR, shoul rosemary, 2 or more view No observ ation record ed. [email or web address] [facility] [address], [place], [address], 02/28/2024 11:04:53 02/28/20 24 XR, wrist No observ ation record ed. [email or web address] [facility] [address], [place], [address], 02/28/2024 11:05:11 04/10/20 24 XR, shoul rosemary, 2 or more view No observ ation record ed. [email or web address] [facility] [address], [place], [address], 04/10/2024 10:50:51 04/10/20 24 XR, wrist , 3 or more view No observ ation record ed. [facility] [address], [place], [address], 04/10/2024 10:56:46 Result Notes None recorded. Problems Name Problem SNOMED Code Status Onset Date Resolution Date Notes Provider Name and Address Organization Details Recorded Time Anxiety 33852158 Active 2022 Not Available [facility] 3 07:43:33 Cough 46152367 Active 2022 Not Available [facility] 3 07:43:33 CT of chest abnormal 61363751310 852495 Active 2022 Not Available [facility] 3 07:43:33 Thyroid nodule 590664169 Active 2022 referred to Endocrino logy Not Available [facility] 3 07:43:33 Bilateral chronic serous otitis 199770754 Active 2023 Shankar Hoover MD [address] [facility], [facility] [address], [place], [address] , [facility] 4 11:06:18 Pain of left shoulder joint 89324591249 580237 Active 2023 MARYURI Miguel null, [facility] 4 10:19:12 Pain of left wrist 13770630471 9102 Active 2023 MARYURI Miguel null, [facility] 4 10:19:33 Pain of left knee joint 95979267798 4107 Active 2023 MARYURI Miguel, [facility] 4 10:19:54 Achilles tendiniti s 28607720 Active 2019 Not Available [facility] 3 07:43:32 Contusion of right hip region 57856838590 142883 Active 2021 Not Available [facility] 3 07:43:32 Hyperchol esterolem ia 32753335 Active 2019 Not Available [facility] 3 07:43:32 Acquired trigger finger 4937202 Active Not Available [facility] 3 07:43:33 Radiother apy follow-up 858555097 Active Not Available [facility] 3 07:43:33 Anxiety disorder 345672337 Active Not Available [facility] 3 07:43:33 Abdominal pain 98080239 Active 2021 Not Available [facility] 3 07:43:33 Osteophyt e of bone 71550244352 9100 Active 2019 Not Available [facility] 3 07:43:33 Osteoarth ritis of knee 412880081 Active 2021 Not Available [facility] 3 07:43:33 Fractured nasal bones 971905905 Active Not Available [facility] 3 07:43:33 Long-term drug therapy Active 2021 Not Available [facility] 3 07:43:33 Pure hyperchol esterolem ia 600919266 Active Not Available [facility] 3 07:43:33 Adult health examinati on Active 2021 Not Available [facility] 3 07:43:33 Anemia 528536823 Active 2021 Not Available [facility] 3 07:43:33 Low back pain 237894026 Active 2016 Not Available [facility] 3 07:43:33 Pain in right arm 052629767 Active Not Available [facility] 3 07:43:33 Disorder of adrenal gland 51389568 Active 2021 Not Available [facility] 3 07:43:33 Knee pain Active Not Available [facility] 3 07:43:33 Screening for disorder Active 2021 Not Available [facility] 3 07:43:33 Type 2 diabetes mellitus without complicat ion 324442246 Active 2021 Not Available [facility] 3 07:43:33 Pain in right hip joint 43662557990 9102 Active 2021 Not Available [facility] 3 07:43:33 Pain of right wrist 60218879911 9100 Active 2017 Not Available [facility] 3 07:43:33 Trochante heladio bursitis of right hip 65138884285 9100 Active 2021 Not Available [facility] 3 07:43:33 Osteoarth ritis of right knee joint 89334362494 9100 Active 2018 Not Available [facility] 3 07:43:33 Vitamin D deficienc y 54015199 Active 2018 Not Available [facility] 3 07:43:33 Arthritis 8247911 Active 2019 Not Available [facility] 3 07:43:33 Osteoarth ritis 611712588 Active Not Available [facility] 3 07:43:33 Dysphagia 01222640 Active 2021 Not Available [facility] 3 07:43:33 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 Not Available [facility] 3 07:43:33 Acute urinary tract infection 608577312 Active 2021 Not Available [facility] 3 07:43:33 Dysuria 44182470 Active 2016 Not Available [facility] 3 07:43:33 Acute conjuncti vitis 47756225 Active 2021 Not Available [facility] 3 07:43:33 Essential hypertens ion 98883262 Active Not Available [facility] 3 07:43:33 Urinary tract infectiou s disease 87566600 Active 2021 Not Available [facility] 3 06:42:22 Rhinitis 57578876 Active 2017 Not Available [facility] 3 07:43:33 Diabetes mellitus 18960184 Active Not Available [facility] 3 07:43:33 Nodule of lung 025071058 Active 2021 3.5 mm right lower lobe August 2021 Not Available [facility] 3 07:43:33 Nodule of adrenal cortex 545222390 Active 2021 18 mm right adrenal lipoma Not Available [facility] 3 07:43:33 Weight loss 28081105 Active 2021 Not Available [facility] 3 07:43:33 Closed intertroc hanteric fracture 05916022 Active 2020 Not Available [facility] 3 07:43:33 Conjuncti vitis 2755739 Active 2021 Not Available [facility] 3 07:43:33 Notes:Some problems listed i n Document: #[id number] could not be added to this patient's chart. Please review this document and add these problems to the patient's chart manually as needed. Problem Notes None recorded. Procedures Surgical History Date Name Laterality Status Provider Name and Address Organization Details Recorded Time 08/15/19 23 Medicare Wellness CPT Code, subsequent completed Veda Franco RN [facility] 08/14/2022 14:14:08 07/17/19 23 Ortho - Cortisone Injection completed Kendrick Quintana MD [address] [place] [address], [place] [address], [place], [address], [facility] 07/16/2022 11:08:33 07/17/19 22 EGD completed Not Available [facility] 3 04:42:13 07/17/19 22 Colonoscopy completed Not Available [facility] 07/02/19 23 04:42:13 01/07/20 21 Most Recent Bone Density completed Not Available [facility] 07/01/2022 04:42:11 12/16/19 19 Date of Last Colonoscopy completed Not Available [facility] 07/01/2022 04:42:11 12/16/19 19 Colonoscopy completed Not Available [facility] 07/02/19 04:42:13 10/01/19 17 release of trigger finger completed Not Available [facility] 07/01/2022 04:42:13 10/21/19 16 release of trigger finger completed Not Available [facility] 07/01/2022 04:42:13 06/12/19 11 Colonoscopy completed Not Available [facility] 07/02/19 04:42:13 completed Not Available [facility] 0 07/01/2022 04:42:13 Unlisted px femur/knee completed Not Available [facility] 07/01/2022 04:42:13 Back [facility] 07/01/2022 04:42:13 Gallbladder Surgery completed Not Available [facility] 07/01/2022 04:42:13 Tonsillectomy completed [facility] Available [facility] 07/01/2022 04:42:13 Imaging Results Imaging Date Name Status LastModified by Organiz ation Details LastModified Time 01/02/2024 imaging/diagn ostic result completed [email or web address] Information not available 01/04/2024 10:07:57 01/05/2024 XR, knee, 3 view completed [email or web address] [facility] [place] [address], [place], [address], 01/05/2024 10:57:36 01/19/2024 XR, shoulder, 2 or more view completed [email or web address] [facility] [place] [address], [place], [address], 01/19/2024 11:15:11 01/19/2024 XR, wrist, 3 or more view completed [email or web address] [facility] [place] [address], [place], [address], 01/19/2024 11:15:16 02/02/2024 XR, shoulder completed [email or web address] [facility] [address], [place], [address], 02/02/2024 10:34:49 02/02/2024 XR, wrist completed [email or web address] [facility] [address], [place], [address], 02/02/2024 10:34:57 02/28/2024 XR, shoulder, 2 or more view completed [email or web address] [facility] [address], [address], 02/28/2024 11:04:53 02/28/2024 XR, wrist completed [email or web address] [facility] [address], [address], 02/28/2024 11:05:11 04/10/2024 XR, shoulder, 2 or more view completed [email or web address] [facility] [address], [address], 04/10/2024 10:50:51 04/10/2024 XR, wrist, 3 or more view completed [email or web address] [facility] [address], [address], 04/10/2024 10:56:46 Procedure Notes None recorded. Medical [...] mg by injectio n route. 10/14 completed [facility]: [id number] 4-20 Not Available Not Available Not [...] (50,000 unit) capsule take one capsule by [facility] for 12 weeks active Not Available Not [...] e 50 mcg/actua tion nasal spray,tarah pension [place] 2 sprays every day by intranas al [...] n administ ered by the provider active [facility]: 0409-427 10-17 Not Available Not Available Not [...] subcutan eous route. 04/19 completed lot # [id number] - exp. 03/22 - given in left [...] Available Not Available Not Available Fluzone High-Dose 6230-9174 (PF) 180 mcg/0.5 mL intramusc ular syringe [...] completed Not Available Not Available Not Available [facility] Ultra Blue Test Strip USE ONE STRIP [...] Updated DateTime 01/05/2024 165.1 cm 28.3 kg/m2 51982.7 g 9 MARYURI Miguel [facility] 01/05/2024 10:15:43 Date Recorded Body height Body mass index (BMI) Body weight Pain severity - 0-10 verbal numeric rating [Score] - Reported Provider Name and Address Organization Details Last Updated DateTime 01/19/2024 165.1 cm 28.3 kg/m2 97718.7 g 6 MARYURI Miguel [facility] 01/19/2024 09:57:56 Date Recorded Body height Provider Name an d Address Organization Details Last Updated DateTime 02/02/2024 165.1 cm Neda Braxton [facility] 02/02/2024 10:33:54 Date Recorded Body height Body mass index (BMI) Body weight Pain severity - 0-10 verbal numeric rating [Score] - Reported Provider Name and Address Organization Details Last Updated DateTime 02/28/2024 165.1 cm 28.3 kg/m2 61657.7 g 7 Suzanne Ferguson [facility] 02/28/2024 11:04:17 Date Recorded Body height Body mass index (BMI) Body weight Pain severity - 0-10 verbal numeric rating [Score] - Reported Provider Name and Address Organization Details Last Updated DateTime 04/10/2024 165.1 cm 28.3 kg/m2 75781.7 g 7 Suzanne Ferguson [facility] 04/10/2024 10:49:54 Social History Question Answer Notes LastModified by Organizat ion Details LastModified Time Tobacco Smoking Status Former Smoker quit in 1999 Not Available [facility] 07/01/2022 04:41:55 Do You Have An Advance Directive? Yes MIGRATION.35926 73068 Information not available 07/01/2022 What Is Your Level Of Alcohol Consumption? None MIGRATION.52478 92325 Information not available 07/01/2022 Are You Blind Or Do You Have Difficulty Seeing? No MIGRATION.13726 97004 Information not available 07/01/2022 What Is Your Level Of Caffeine Consumption? Occasional MIGRATION.84328 82389 Information not available 07/01/2022 How Much Tobacco Do You Chew? None MIGRATION.06963 47774 Information not available 07/01/2022 In The 14 Days Before Symptom Onset, Have You Had Close Contact With A Laboratory-confi rmed COVID-19 While That Case Was Ill? No MIGRATION.04826 08865 Information not available 07/01/2022 In The 14 Days Before Symptom Onset, Have You Had Close Contact With A Person Who Is Under Investigation For COVID-19 While That Person Was Ill? No MIGRATION.11835 13667 Information not available 07/01/2022 Are You Deaf Or Do You Have Serious Difficulty Hearing? No MIGRATION.59438 39052 Information not available 07/01/2022 What Type Of Diet Are You Following? REGULAR MIGRATION.03451 86889 Information not available 07/01/2022 Which Illicit Or Recreational Drugs Have You Used? None MIGRATION.62569 16236 Information not available 07/01/2022 Do You Or Have You Ever Used E-cigarettes Or Vape? Never Used Electronic Cigarettes MIGRATION.18454 37326 Information not available 07/01/2022 What Is The Highest Grade Or Level Of School You Have Completed Or The Highest Degree You Have Received? LP08396-8 MIGRATION.96052 89584 Information not available 07/01/2022 What Is Your Occupation? Retired MIGRATION.49963 06320 Information not available 07/01/2022 Have There Been Any Changes To Your Family Or Social Situation? No MIGRATION.06235 27195 Information not available 07/01/2022 What Is The Fluoride Status Of Your Home? Unknown MIGRATION.52931 59156 Information not available 07/01/2022 When Did You Quit Smoking? 16+yearssincelastc igarette MIGRATION.92146 57149 Information not available 07/01/2022 Are There Any Guns Present In Your Home? No MIGRATION.51192 24398 Information not available 07/01/2022 Do You Use Insect Repellent Routinely? No MIGRATION.44069 53421 Information not available 07/01/2022 Where Do You Live? [facility] MIGRATION.25368 65482 Information not available 07/01/2022 Presence Of Domestic [...] Do You Have A Medical Power Of Sanitation Worker Cleaning Equipment? No MIGRATION.30317 33075 Information not available 07/01/2022 What Was The Date Of Your Most Recent Tobacco Screening? 01/05/2024 [email or web address] Information not available 01/05/2024 Do You Have Any Pets? Yes MIGRATION.31641 60762 Information not available 07/01/2022 What Is Your Relationship Status? Domestic Partner MIGRATION.68940 74389 Information not available 07/01/2022 Do You Use Your Seat Belt Or Car Seat Routinely? Yes MIGRATION.14767 89250 Information not available 07/01/2022 Do You Have Smoke And Carbon Monoxide Detectors In Your Home? Yes MIGRATION.85739 95589 Information not available 07/01/2022 Are You Passively Exposed To Smoke? No MIGRATION.47453 87967 Information not available 07/01/2022 Do You Or Have You Ever Used Smokeless Tobacco? Never Used Smokeless Tobacco MIGRATION.45447 95207 Information not available 07/01/2022 Are There Any Smokers In Your House? No MIGRATION.55557 20703 Information not available 07/01/2022 How Much Tobacco Do You Smoke? No Was 2ppd MIGRATION.82679 55968 Information not available 07/01/2022 What Types Of Sporting Activities Do You Participate In? None MIGRATION.20152 63723 Information not available 07/01/2022 Do You Feel Stressed (tense, Restless, Nervous, Or Anxious, Or Unable To Sleep At Night)? [id number] MIGRATION.02597 99113 Information not available 07/01/2022 Do You Use Any Illicit Or Recreational Drugs? No MIGRATION.34675 32458 Information not available 07/01/2022 Do You Use Sunscreen Routinely? No Information not available 08/14/2022 Has Tobacco Cessation Counseling Been Provided? No MIGRATION.87955 65388 Information not available 07/01/2022 Have You Recently Traveled Abroad? No MIGRATION.18903 08642 Information not available 07/01/2022 Do You Have Any Dietary Restrictions? No MIGRATION.61932 02216 Information not available 07/01/2022 Do You Or Have You Ever Used Any Other Forms Of Tobacco Or Nicotine? No MIGRATION.01307 47530 Information not available 07/01/2022 Sex: Female Functional Status Question Answer Note LastModified by Organizat ion Details LastModified Time Do you have difficulty walking or climbing stairs? No MIGRATION.972433 7774 Information not available 07/01/2022 Do you have transportation difficulties? No MIGRATION.837310 1865 Information not available 07/01/2022 Are you able to walk? YESWOREST MIGRATION.201344 8962 Information not available 07/01/2022 Do you have difficulty doing errands alone? No MIGRATION.480019 7782 Information not available 07/01/2022 Are you able to care for yourself? Yes MIGRATION.211922 7095 Information not available 07/01/2022 Do you have difficulty dressing or bathing? No MIGRATION.878111 5997 Information not available 07/01/2022 What is your exercise level? None stays active Information not available 08/14/2022 Mental Status Question Answer Note LastModified by Organizat ion Details LastModified Time Do you have difficulty concentrating, remembering or making decisions? No MIGRATION.968818323 6 Information not available 07/01/2022 Family History Relationship Description Onset Age of this Age Resolved Age Notes LastModified by Organization Details LastModified Time Mother Colostomy MIGRATION.412 [id number] Not available 07/01/2022 04:42:20 Sister Family history of malignant neoplasm MIGRATION.543 9657356 Not available 07/01/2022 04:42:20 Sister COVID-19 deceas ed MIGRATION.941 1085226 Not available 07/01/2022 04:42:20 Son Family history of malignant neoplasm MIGRATION.423 6170498 Not available 07/01/2022 04:42:20 Notes:NO ENT Medical History Condition Response NERVE DISEASE N BLINDNESS N RHEUMATIC FEVER N KIDNEY STONES N BLADDER PROBLEMS N MRSA N OTHER # 1 N [...] ARTERY DISEASE (CAD) N ADDICTION CONCERNS N Impotence N ENDOMETRIOSIS N USE OF BLOOD THINNERS N SKIN [...] APNEA N CHICKENPOX N INFECTIOUS DISEASE N PROSTATE N HEART ARRHYTHMIA N INSOMNIA N HIGH CHOLESTEROL / HYPERLIPIDEMIA Y EYE PROBLEMS N HYPERTHYROIDISM N NEUROLOGICAL PROBLEMS N EDEMA N CHRONIC PAIN SYNDROME N HYPOTHYROIDISM N CONSTIPATION N CAROTID BLOCKAGE N BACK / NECK PROBLEMS N HAVE YOU BEEN HOSPITALIZED OR SEEN IN [facility] IN THE PAST YEAR ? N ATHEROSCLEROSIS N BREAST PROBLEMS N DIALYSIS N ECZEMA N OSTEOPOROSIS N ARTHRITIS Y APPENDICITIS N DIABETES, TYPE Y BAD TEETH N ENT N HEARTBURN / REFLUX N AFIB N AUTISM SPECTRUM DISORDER (ASD) N HEPATITIS / LIVER DISEASE N GOUT N SLEEP DISORDER N ALZHEIMER'S DISEASE N Brain Problems N DEMENTIA N HERPES N SEIZURES/EPILEPSY N HEADACHES/MIGRAINES N VASCULAR DISEASE N PACEMAKER N Blood Disorder N DIZZINESS N HEART DISEASE/HEART PROBLEMS N KIDNEY DISEASE N MULTIPLE SCLEROSIS N CANCER: SPECIFY N CARDIAC ARRHYTHMIA N ATRIAL FIBRILLATION N Gall Stones N [...] virus, trivalent, preservative 3 completed Not Available [facility] 04/05/2023 07:43:34 zoster, unspecified formulation 0 completed Not Available [facility] 04/05/2023 07:43:33 pneumococcal polysaccharide PPV23 0 completed Not Available [facility] 04/05/2023 07:43:34 Influenza, high-dose, trivalent, PF 0 completed Not Available [facility] 04/05/2023 07:43:34 Tdap 9 completed Not Available [facility] 04/05/2023 07:43:34 Influenza, high-dose, trivalent, PF 9 completed Not Available [facility] 04/05/2023 07:43:34 Pneumococcal conjugate PCV 13 7 completed Not Available [facility] 04/05/2023 07:43:34 Influenza, high-dose, trivalent, PF 7 completed Not Available [facility] 04/05/2023 07:43:34 Influenza, high-dose, quadrivalent, PF 9 completed Not Available [facility] 04/05/2023 07:43:34 pneumococcal, unspecified formulation 4 completed Not Available [facility] 04/05/2023 07:43:34 Influenza, split virus, trivalent, preservative 3 completed Not Available [facility] 04/05/2023 07:43:34 Past Encounters Encounter ID Performer Location Encounter Start Date Encounter Closed Date Diagnosis/Indication Diagnosis SNOMED-CT Code Diagnosis ICD10 Code Diagnosis Note [id number] [facility] [address] [place], [place] [address]., [address] [address] 08/19/2020 00:00:00 08/24/2020 21:06:00 [id number] [facility] [address] [address] 09/06/2020 00:00:00 09/22/2020 17:54:42 [id number] [facility] [address] [address] 11/27/2020 00:00:00 12/01/2020 10:20:57 [id number] [facility] [place] [address] [place] [address] 12/19/2020 00:00:00 12/19/2020 15:03:41 [id number] [facility] [place] [address] [facility] [address] [place] [address] 01/16/2021 00:00:00 01/16/2021 10:15:45 [id number] [facility] [address] [place], [place] [address]., [address] [address] 03/17/2021 00:00:00 03/29/2021 17:37:35 [id number] [facility] [address] [address] 04/29/2021 00:00:00 04/29/2021 09:46:31 [id number] [facility] [address] [address] 05/27/2021 00:00:00 05/27/2021 09:27:52 [id number] [facility] [address] [place] [address] Michaele., [address] [address] 06/09/2021 00:00:00 07/06/2021 20:54:16 [id number] [facility] [address] [place] [address] Michaele., [facility] [address] [place] [address] 07/04/2021 00:00:00 07/27/2021 17:49:16 [id number] [facility] [address] [place] [address] Michaele., [address] [address] 08/08/2021 00:00:00 08/23/2021 19:21:55 [id number] [facility] [place] [address] [place] [place] [address] 08/19/2021 00:00:00 08/19/2021 14:36:35 [id number] [facility] Internal Med [facility] [address] [address] 09/05/2021 00:00:00 09/05/2021 22:19:44 [id number] [facility] [place] [address] [place] [address] 09/30/2021 00:00:00 09/30/2021 14:04:01 [id number] [facility] [place] [address] [place] [address] 10/28/2021 00:00:00 10/28/2021 13:46:53 [id number] [facility] Internal [facility] [address] [place] [address] [address] [address] 12/02/2021 00:00:00 01/10/2022 11:43:58 [id number] [facility] [place] [address] [place] [address] 12/30/2021 00:00:00 12/30/2021 10:38:57 [id number] [facility] Ortho [address] [address] 01/27/2022 00:00:00 01/27/2022 09:39:23 [id number] [facility] Ortho [address] [address] 02/10/2022 00:00:00 02/10/2022 09:25:31 [id number] [facility] Ortho [address] [address] 03/10/2022 00:00:00 03/10/2022 10:24:18 [id number] [facility] [place] [address] [address] 04/03/2022 00:00:00 04/03/2022 10:29:50 [id number] Kendrick Quintana MD [facility] [address] [place] [address] 07/16/2022 10:45:59 07/16/2022 12:01:06 Contusion of right hip region [id number] S70.01XD Pain in ri ght hip joint 8930484912 05173 M25.551 Trochanter ic bursitis of right hip 2626219276 73504 M70.61 [id number] Noel Ordaz MD [facility] [place] [address]43 [facility] [address] [place] [address] 08/14/2022 13:46:37 08/14/2022 14:44:49 Adult health examination [id number] Z00.00 Screening for disorder 581161351 Z13.9 Anxiety 08010691 F41.9 Hypercholesterolemia 136 74328 E78.00 Essential hypertension 92714229 I10 Pure hypercholesterolemia 648922401 E78.00 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 885017845 E11.9 [id number] Noel Ordaz MD [facility] [place] [address] [facility] [address] [place] [address] 09/25/2022 11:15:07 09/25/2022 12:27:49 Diabetes mellitus 17735786 E11.9 Essential hypertension 28834734 I10 Nodule of lung 281562574 R91.1 Hypercholesterolemia 136 91606 E78.00 Anxiety 84552817 F41.9 [id number] Noel Ordaz MD [facility] Internal Med [facility] [address] [address] 10/14/2022 10:24:55 10/14/2022 11:20:28 Essential hypertension 90503686 I10 Hypercholesterolemia 136 27739 E78.00 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 654927355 E11.9 [id number] Noel Ordaz MD [facility] Internal Med [facility] 2043 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 [place] [address] 01/05/2024 09:57:28 01/05/2024 11:17:17 Pain of left shoulder joint 3250716852 7286884 M25.512 Pain of left wrist 46387 22330 53764 M25.532 Pain of le ft knee joint 1483945327 79212 M25.585 [id number] Sylvia Cabrera NP [facility] [place] [address] [place] [address] 01/19/2024 09:52:28 01/19/2024 10:23:53 Pain of left shoulder joint 8764046934 0385895 M25.512 Pain of left wrist 26090 68583 38900 M25.532 Pain of le ft knee joint 1958397479 88856 M25.825 [id number] Christiano Loera MD [facility] [place] [address] [place] [address] 02/02/2024 10:29:59 02/02/2024 11:12:10 Pain of left shoulder joint 5838305756 5371847 M25.512 Closed intertrochanteric fracture 23638592 S72.141D Pain of left wrist 95268 12584 79978 M25.597 [id number] Christiano Loera MD [address] [address] 02/28/2024 11:00:37 02/28/2024 11:42:36 Pain of left shoulder joint 2581397050 3327492 M25.512 Pain of left wrist 07202 11658 48418 M25.948 [id number] Christiano Loera MD [address] [address] 04/10/2024 10:45:00 04/10/2024 12:36:06 Pain of left shoulder joint 2172148847 4030530 M25.512 Pain of left wrist 04467 23044 76617 M25.532 Health Concerns Section Related Observation LastModified by Organization Detai ls LastModified Time None Recorded Concern Status LastModified by Organization Details LastModified Time None Recorded Advance Directives Directive Y: Payers Encounter Date Sequence Insurance Name Policy Number Policy Soto Covered Member ID Soto Member ID Guarantor Name 01/05/2024 1 [facility] (MEDICARE REPLACEMENT/A DVANTAGE - HMO) [id number] Pinky Yao [id number] Pinky Yao 01/19/2024 1 [facility] (MEDICARE REPLACEMENT/A DVANTAGE - HMO) [id number] Pinky Sheth Weeks [id number] Pinky Sheth Weeks 02/02/2024 1 [facility] (MEDICARE REPLACEMENT/A DVANTAGE - HMO) [id number] Pinky Sheth Weeks [id number] Pinky Sheth Weeks 02/28/2024 1 [facility] (MEDICARE REPLACEMENT/A DVANTAGE - HMO) [id number] Pinky Sheth Weeks [id number] Pinky Sheth Weeks 04/10/2024 1 [facility] (MEDICARE REPLACEMENT/A DVANTAGE - HMO) [id number] Pinky Sheth Weeks [id number] Pinky Sheth Weeks OBGyn Episode No OBEpisode recorded.
--- OUTSIDE RECORDS SUMMARY | 2024-08-13 17:40 | XMS_ITS | CONTINUITY OF CARE DOCUMENT ---
Author Name annie, annie Address Unknown Organization [facility] Address [address] [place] [address] Phone [phone] Care Team Providers Care Steam Service Inspector Name Role Phone Carol ACOSTA, Gregorio Unavailable NOEL PITTS MD Unavailable [phone] NOEL PITTS MD Unavailable PROBLEMS Condition Status Date Provider Notes HYPERLIPIDEMIA-PMD MONITORIN G LIPID LEVELS active ? CHI RENAE NP CVA active Gregorio Medina MD ENCOUNTERS Date Type Provider Location Encounter Diag nosis - In-person encounter Office Visit Gregorio Medina MD [facility] CVA - In-person encounter Office Visit Donnell Forbes MD [facility] - In-person encounter Office Visit Donnell Forbes MD [facility] HYPERLIPIDEMIA-PMD MONITORING LIPID LEVELS VITAL SIGNS Date Observation Value Provider Body Mass Index (Ratio) 30.45 kg/m2 Leandro Medina MD blood pressure, cuff size regular Ja rret blood pressure, diastolic 70 mm[Hg] Ja rret blood pressure, systolic 133 mm[Hg] Brianna ret pulse rate 74 /min Aron respiratory rate E&M 12 /min Aron oxygen saturation, oximetry 97 % Aron height E&M 65 [in_i] Aron [facility] y weight E&M 183 [lb_av] Aron [facility] y blood pressure, diastolic, left arm 87 mm [Hg] Martita [place] blood pressure, systolic, left arm 145 mm [Hg] Martita [place] blood pressure, diastolic, right arm 78 m m[Hg] Martita [place] blood pressure, systolic, right arm 147 m m[Hg] Martita [place] blood pressure, diastolic 78 mm[Hg] Fe jhoan [place] blood pressure, systolic 147 mm[Hg] Fel icia [place] pulse rate 80 /min Martita [place] oxygen saturation, oximetry 96 % Martita [place] respiratory rate E&M 18 /min Martita [place] weight E&M 228 [lb_av] Martita [place] blood pressure, diastolic 67 mm[Hg] Ned Burgos [...] BY MOUTH ONCE A DAY Shanice Ventimiglia MANAGER INSTALLATION amlodipine 2.5 mg tablet active Shanice Ventimiglia MANAGER INSTALLATION atorvastatin 40 mg tablet active aspirin unspecified unspecified active CIPRO TABS completed 500 mg twice a day - Shanice Ventimiglia MANAGER INSTALLATION Lexapro 10 mg tablet completed 1 tablet once a day - Shanice Ventimiglia MANAGER INSTALLATION Lipitor 20 mg tablet completed 1 tablet once a day - Shanice Ventimiglia MANAGER INSTALLATION quinapril 40 mg tablet active Take 1 tablet by mouth once a day Shanice Rodriguez [facility] SOCIAL HISTORY Date Observation Value Provider drug use no Shanice knapp [facility] alcohol use no Shanice knapp [facility] smoking status Former smoker Shanice rodarte [facility] social history reviewed E&M reviewed Donnell Forbes MD social history E&M Marital Statu s: Single L mary lou with family/friends E thnicity: CHI RENAE 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 drug use none 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 SWENSONGUNNER 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 social history reviewed E&M reviewed CHI GINNYTRENTON 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 physical exercise, frequency, days per week yes [facility] caffeine use, averag e drinks per day yes [facility] alcohol use, average drinks per day none [facility] number of years as a smoker 10 years or m ore [facility] smoking status Quit [facility] MENTAL STATUS Date Observation Value Provider [...] Policy type / Coverage type Lizett red constitution party ID AARP MEDICARE ADVANTAGE HMO-POS HMO [id number] ADVANCE DIRECTIVES Name Date DISCUSSED - NO DECISION MADE TREATMENT PLAN Date Name Performer [id number],C,l ifestyl modification encouraged. Shanice Rodriguez [facility] [id number],C,w ith residual rt sided weakness. Negative carotid study on recent hospital stay Shanice Rodriguez [facility] [id number],C,B P 133/70 today B vi controlled E ncouraged home monitoring for goal BP <130/80 H er updated medication list for this problem includes: Quinapril 40 Mg Tablet (Quinapril) ..... Take 1 tablet by mouth once a day Amlodipine 2.5 Mg Tablet (Amlodipine) Aspirin Unspecified Unspecified (Aspirin) Shaniceomar Rodriguez [facility] [id number],C,A typical chest pain has been ongoing for over a year and occurs weekly. She was hospitalized for HTN urgency and had elevated troponin. Echo in hospital showed EF of 65% with mild LV, mod mitral calcification and aortic calcification. She had stress test that showed fixed defect. At ths time medical management. [facility] [id number],C,W ill add zetia as LDL 119 in [...] Tablet (Atorvastatin) Orders: 9 9214 MOD 30-39min (CPT-79719) L IPID PANEL (2194) [facility]:lifestyl modification encouraged. [facility]:with resi dual rt sided weakness. Negative carotid study on recent hospital stay [facility]:BP 133/70 today B vi controlled E ncouraged home monitoring for goal BP <130/80 H er updated medication list for this problem includes: Quinapril 40 Mg Tablet (Quinapril) ..... Take 1 tablet by mouth once a day Amlodipine 2.5 Mg Tablet (Amlodipine) Aspirin Unspecified Unspecified (Aspirin) Shanice [facility] Cardiology:Atypical chest pain has been ongoing for over a year and occurs weekly. She was hospitalized for HTN urgency and had elevated troponin. Echo in hospital showed EF of 65% with mild LV, mod mitral calcification and aortic calcification. She had stress test that showed fixed defect. At ths time medical management. [facility]:Will add zetia as LDL 119 in [...] Tablet (Atorvastatin) Orders: 9 9214 MOD 30-39min (CPT-[id number]) L IPID PANEL (9670) Shanice Rodriguez MANAGER INSTALLATION ROUTINE F/U WITH ECH O: H er [...] by mouth every day Orders: Ngoc KG (CPT-96658) Donnell Forbes MD office visit: B P today: Orders: Jairon omplete Echo (CPT-47055) S chedule Followup (*) CHI RENAE NP office visit: H er updated medication list for this problem includes: Quinapril Hcl 40 Mg Tabs (Quinapril hcl) ..... Take 1 tablet by mouth every day BP today: 103 Prior BP: / () Nuclear Stress Findings: NORMAL EF 50% (12/31/2006) E chocardiogram: normal: EF 60% (12/31/2006) Orders: C omplete Echo ([id number]) S chedule Followup (*) CHI GINNYTRENTON 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 office visit: H er updated medication list for this problem includes: Quinapril Hcl 40 Mg Tabs (Quinapril hcl) ..... Take 1 tablet by mouth every day BP today: Prior BP: / () Nuclear Stress Findings: NORMAL EF 50% (12/31/2006) E chocardiogram: normal: EF 60% (12/31/2006) Orders: C omplete Echo ([id number]) S chedule Followup (*) CHI GINNYTRENTON 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 office visit: H er updated medication list for this problem includes: Quinapril Hcl 40 Mg Tabs (Quinapril hcl) ..... Take 1 tablet by mouth every day BP today: Prior BP: / () Nuclear Stress Findings: NORMAL EF 50% (12/31/2006) E chocardiogram: normal: EF 60% (12/31/2006) BP today: Orders: C omplete Echo (CPT-89412) S chedule Followup (*) CHI GINNYTRENTON 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 office visit: B P today: CHI GINNYTRENTON 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 office visit: H er updated medication list for this problem includes: Quinapril Hcl 40 Mg Tabs (Quinapril hcl) ..... Take 1 tablet by mouth every day BP today: Prior BP: / () Nuclear Stress Findings: NORMAL EF 50% (12/31/2006) E chocardiogram: normal: EF 60% (12/31/2006) CHI GINNYTRENTON 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 office visit: H er updated medication list for this problem includes: Quinapril Hcl 40 Mg Tabs (Quinapril hcl) ..... Take 1 tablet by mouth every day BP today: Prior BP: / () Nuclear Stress Findings: NORMAL EF 50% (12/31/2006) E chocardiogram: normal: EF 60% (12/31/2006) CHI GROSSSENYANG 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 office visit: H er updated medication list for this problem includes: Quinapril Hcl 40 Mg Tabs (Quinapril hcl) ..... Take 1 tablet by mouth every day BP today: 103/67 Prior BP: / () Nuclear Stress Findings: NORMAL EF 50% (12/31/2006) E chocardiogram: normal: EF 60% (12/31/2006) BP today: 103/67 CHI RENAE 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 Date Name LIPID PANEL Stress Regadenoson Complete Echo Complete Echo HISTORY OF PROCEDURES Procedure Date Procedure Name Provider Procedure Notes S tatus Mobile Cardiac Telemetry - Tech Shaan Montemayor DO completed Mobile Cardiac Telemetry - Prof Shaan Montemayor DO completed EKG Donnell Forbes MD completed Schedule Followup Donnell Forbes MD F/U 1 YEAR co mpleted
--- OUTSIDE RECORDS SUMMARY | 2024-08-13 17:41 | XMS_ITS | Continuity of Care Document ---
Author Organization [facility] Address [address] [place] [address] Phone Care Team Providers Care Salvage Clerk Name Role Phone Parra OD, Shaun Unavailable Unavailable Procedures Procedure Date Eye Exam & Treatment Eye Exam & Treatment Eye Exam & Treatment Refraction Advance Directives Directive Yes / No Effective Date File Name No Information Encounters Encounter Description Practice Location Reason(s) For Visit Diagnoses Date Provider Providers Copied on Encounter [facility], [address] [place] [address] [address], [place], [place], [id number], tel:[phone] [facility] [place] No Information 5-201 0 Parra OD Shaun. [address], [place], [place], [facility], [place]. tel:[phone] [facility], [address] [place] [address] [address], [place], [place], [id number], tel:[phone] [facility] [place] No Information 2-200 9 Parra OD Shaun. [address], [place], [address], [place]. tel:[phone] [facility], [address] [place] [address] [address], [place], [place], [id number], tel:[phone] [facility] [place] No Information Dec- 3-200 8 Parra OD Shaun. [address], [place], [place], [facility], [place]. tel:[phone] Family History Family Member Type Diagnosis Age At Onset No Information Payers Payer name Insurance type Covered constitution party ID Authoriza tikrista(s) [place] [id number] Social History Type Description Quantity Date Captured [...]
--- OUTSIDE RECORDS SUMMARY | 2024-08-13 17:41 | XMS_ITS | Referral Summary ---
Author Organization [facility] Address [address] [place] [address] Care Team Providers Care Qa Specialist Name Role Phone Johnie Ordaz MD Primary Care Provider [phone] Encounters Date Type Department Care Team Description 07/10/2024 9:00 AM CDT Office Visit 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 5 Med Surg [facility] [place] [address] Zay Toledo MD Nyquist, David J., MD [...] 03/09/2023 Assessment & Plan (03/09/2023 12:52 PM OIL DRILLER): Differential diagnosis would include benign nodule (macrofollicular [...] review. In addition she has an ongoing ekg monitor tech to screen for atrial fibrillation which should [...] Tobacco: Never Tobacco Cessation:Counseling Given: Not Answered [facility] Utilities Answer Date Recorded In the past 12 months has [employer], [employer], or water [employer] threatened to shut off services in your [...] How often do you attend chur or zoroastrianism services? Never 05/22/2024 Do you belong to any clubs o r organizations such as mormon groups, unions, fraternal or athletic groups, or [...] any time in the past 12 m cox [place], were you homeless or living in a intermediate (including now)? No 05/22/2024 Personal Safety Answer Date Recorded Have you ever been in or are you currently in a harmful physical or emotional relationship or is someone making you feel afraid or unsafe? Denies 05/21/2024 Comments No Sex and Gender Information Value Date Recorded Sex Assigned at Not on file Legal Sex Female 8:13 PM OIL DRILLER Gender Identity Not on file Sexual Orientation Not on file Last Filed Vital Signs Vital Sign Reading Time Taken Comments Blood Pressure 120/60 07/10/2024 9:14 AM CDT Pulse 91 07/10/2024 9:14 AM CDT Temperature 36.3 C (97.3 F) 05/25/2024 11:34 AM OIL DRILLER Respiratory Rate 19 07/10/2024 9:14 AM CDT [...] Diagnosis Comments EGFR Routine 05/29/2024 6:03 AM OIL DRILLER BASIC METABOLIC PANEL Routine 05/29/2024 6:03 AM OIL DRILLER DIFFERENTIAL AUTO Routine 05/29/2024 6:0 3 AM OIL DRILLER CBC WITH AUTO DIFFERENTIAL Routine 05/29/2024 6:03 AM OIL DRILLER VITAMIN D 25 HYDROXY Routine 05/26/2024 6:13 AM OIL DRILLER PREALBUMIN Routine 05/26/2024 6:13 AM OIL DRILLER EGFR Routine 05/26/2024 6:13 AM OIL DRILLER VITAMIN B12 Routine 05/26/2024 6:13 AM OIL DRILLER COMPREHENSIVE METABOLIC PANEL Routine 05/26/2024 6:13 AM OIL DRILLER MAGNESIUM Routine 05/26/2024 6:13 AM OIL DRILLER PHOSPHORUS Routine 05/26/2024 6:13 AM OIL DRILLER POCT GLUCOSE DEVICE Routine 05/25/2024 1 2:22 PM OIL DRILLER POCT GLUCOSE DEVICE Routine 05/25/2024 7 :46 AM OIL DRILLER EGFR Routine 05/25/2024 6:01 AM OIL DRILLER DIFFERENTIAL AUTO Routine 05/25/2024 6:0 1 AM OIL DRILLER CBC WITH AUTO DIFFERENTIAL Routine 05/25/2024 6:01 AM OIL DRILLER BASIC METABOLIC PANEL Routine 05/25/2024 6:01 AM OIL DRILLER POCT GLUCOSE DEVICE Routine 05/24/2024 8 :32 PM OIL DRILLER POCT GLUCOSE DEVICE Routine 05/24/2024 5 :18 PM OIL DRILLER POCT GLUCOSE DEVICE Routine 05/24/2024 1 1:59 AM OIL DRILLER EGFR Routine 05/24/2024 7:58 AM OIL DRILLER DIFFERENTIAL AUTO Routine 05/24/2024 7:5 8 AM OIL DRILLER CBC WITH AUTO DIFFERENTIAL Routine 05/24/2024 7:58 AM OIL DRILLER BASIC METABOLIC PANEL Routine 05/24/2024 7:58 AM OIL DRILLER POCT GLUCOSE DEVICE Routine 05/24/2024 7 :42 AM OIL DRILLER POCT GLUCOSE DEVICE Routine 05/23/2024 9 :07 PM OIL DRILLER POCT GLUCOSE DEVICE Routine 05/23/2024 5 :55 PM OIL DRILLER POCT GLUCOSE DEVICE Routine 05/23/2024 1 1:06 AM OIL DRILLER POCT GLUCOSE DEVICE Routine 05/23/2024 8 :02 AM OIL DRILLER EGFR Routine 05/23/2024 5:34 AM OIL DRILLER DIFFERENTIAL AUTO Routine 05/23/2024 5:3 4 AM OIL DRILLER CBC WITH AUTO DIFFERENTIAL Routine 05/23/2024 5:34 AM OIL DRILLER BASIC METABOLIC PANEL Routine 05/23/2024 5:34 AM OIL DRILLER POCT GLUCOSE DEVICE Routine 05/22/2024 9 :13 PM OIL DRILLER CTA HEAD NECK W WO CONTRAST IP Routine 05/22/2024 8:04 PM OIL DRILLER POCT GLUCOSE DEVICE Routine 05/22/2024 6 :14 PM OIL DRILLER TRANSTHORACIC ECHO (TTE) COMPLETE W DOPPLER/CF W CONTRAST W BUBBLE Routine 05/22/2024 2:20 PM OIL DRILLER POCT GLUCOSE DEVICE Routine 05/22/2024 1 2:48 PM OIL DRILLER ECG 12-LEAD Routine 05/22/2024 10:35 AM OIL DRILLER US CAROTIDS DUPLEX BILATERAL IP Routine 05/22/2024 9:28 AM OIL DRILLER POCT GLUCOSE DEVICE Routine 05/22/2024 8 :56 AM OIL DRILLER VITAMIN D 25 HYDROXY Timed 05/22/2024 8:03 AM OIL DRILLER FOLATE Timed 05/22/2024 8:03 AM OIL DRILLER IRON PROFILE W/ IBC Timed 05/22/2024 8 :03 AM OIL DRILLER CRP (ACUTE PHASE) Routine 05/22/2024 5:5 2 AM OIL DRILLER MAGNESIUM Routine 05/22/2024 5:52 AM OIL DRILLER FERRITIN Routine 05/22/2024 5:52 AM OIL DRILLER EGFR Routine 05/22/2024 5:52 AM OIL DRILLER DIFFERENTIAL AUTO Routine 05/22/2024 5:5 2 AM OIL DRILLER CBC WITH AUTO DIFFERENTIAL Routine 05/22/2024 5:52 AM OIL DRILLER BASIC METABOLIC PANEL Routine 05/22/2024 5:52 AM OIL DRILLER POCT GLUCOSE DEVICE Routine 05/21/2024 7 :39 PM OIL DRILLER MRI BRAIN WO CONTRAST IP Routine 05/21/2024 6:[address] BODY OUTSIDE REFERENCE Routine 05/21/2024 4:[address] BODY OUTSIDE REFERENCE Routine 05/21/2024 4:46 PM OIL DRILLER POCT GLUCOSE DEVICE Routine 05/21/2024 4 :31 PM OIL DRILLER EGFR STAT 05/21/2024 3:03 PM OIL DRILLER DIFFERENTIAL AUTO STAT 05/21/2024 3:0 3 PM OIL DRILLER THYROID FUNCTION CASCADE Routine 05/21/2024 3:03 PM OIL DRILLER HEMOGLOBIN A1C STAT 05/21/2024 3:03 PM OIL DRILLER LIPID PANEL STAT 05/21/2024 3:03 PM OIL DRILLER BASIC METABOLIC PANEL STAT 05/21/2024 3:03 PM OIL DRILLER CBC WITH AUTO DIFFERENTIAL STAT 05/21/2024 3:[address] BODY OUTSIDE REFERENCE Routine 05/20/2024 12:00 AM OIL DRILLER from Last 3 Months Results * eGFR (05/29/2024 6:03 AM OIL DRILLER) eGFR 62 >=60 mL/min/1. 73 m2 JARED [...] was last reviewed 2021. Testing performed by: [address] [address] Blood 05/29/2024 6:03 AM OIL DRILLER 05/29/2024 8:14 AM OIL DRILLER us Notinfile Unknown LAB BLOOD ORDERABLES Final Res ult JARED [address] [facility] Department [place] [address] * Differential, auto (05/29/2024 6:03 AM OIL DRILLER) Neutrophil abs 5.4 1.5 - 6.5 K/cumm JARED Comment:Testing performed by : [address] [address] Imm gran abs 0.0 0.0 - 0.1 K/cumm JARED PÉREZ Comment:Testing performed by : [address] [address] Lymphocyte abs 1.6 0.8 - 3.3 K/cumm JARED Comment:Testing performed by : [address] [address] Monocyte abs 0.8 0.2 - 0.8 K/cumm [facility] Comment:Testing performed by : [address] [address] Eosinophil abs 0.1 0.0 - 0.5 K/cumm [facility] Comment:Testing performed by : [address] [address] Basophil abs 0.1 0.0 - 0.1 K/cumm [facility] Comment:Testing performed by : [address] [address] Neutrophil pct 67.6 % [facility] Comment: Interpretive Data Percent cell count reference ranges are not reported, since discordance with absolute values may lead to misinterpretation of CBC data. Current Interpretive Data was last revised on 2017. Testing performed by: [address] [address] Imm gran pct 0.4 % [facility] Comment: Interpretive Data Percent cell count reference ranges are not reported, since discordance with absolute values may lead to misinterpretation of CBC data. Current Interpretive Data was last revised on 2017. Testing performed by: [address] [address] Lymphocyte pct 19.4 % [facility] Comment: Interpretive Data Percent cell count reference ranges are not reported, since discordance with absolute values may lead to misinterpretation of CBC data. Current Interpretive Data was last revised on 2017. Testing performed by: [address] [address] Monocyte pct 9.4 % [facility] Comment: Interpretive Data Percent cell count reference ranges are not reported, since discordance with absolute values may lead to misinterpretation of CBC data. Current Interpretive Data was last revised on 2017. Testing performed by: [address] [address] Eosinophil pct 1.8 % [facility] Comment: Interpretive Data Percent cell count reference ranges are not reported, since discordance with absolute values may lead to misinterpretation of CBC data. Current Interpretive Data was last revised on 2017. Testing performed by: [address] [address] Basophil pct 1.4 % JARED PÉREZ Comment: Interpretive Data Percent cell count reference ranges are not reported, since discordance with absolute values may lead to misinterpretation of CBC data. Current Interpretive Data was last revised on 2017. Testing performed by: [address] [address] Blood 05/29/2024 6:03 AM OIL DRILLER 05/29/2024 8:14 AM OIL DRILLER us Notinfile Unknown LAB BLOOD ORDERABLES Final Res ult JARED PÉREZ [facility] Department [place] [address] * (ABNORMAL) CBC with auto differential (05/29/2024 6:03 AM OIL DRILLER) WBC 8.0 3.8 - 9.9 K/cumm JARED PÉREZ Comment:Testing performed by : [address] [address] Hgb 11.6(L) 11.9 - 15.5 g/dL JARED PÉREZ Comment:Testing performed by : [address] [address] Hct 36.8 35.6 - 45.5 % JARED PÉREZ Comment:Testing performed by : [address] [address] Plt 311 150 - 400 K/cumm JARED PÉREZ Comment:Testing performed by : [address] [address] MPV 9.6 9.1 - 12.3 fL JARED PÉREZ Comment:Testing performed by : [address] [address] RBC 4.75 3.90 - 5.20 M/cumm JARED PÉREZ Comment:Testing performed by : [address] [address] MCV 77.5(L) 81.3 - 96.4 fL JARED PÉREZ Comment:Testing performed by : [address] [address] MCH 24.4(L) 27.1 - 33.3 pg JARED PÉREZ Comment:Testing performed by : [address] [address] MCHC 31.5(L) 32.3 - 35.7 g/dL JARED PÉREZ Comment:Testing performed by : [address] [address] RDW CV 15.6(H) 11.1 - 14.9 % JARED PÉREZ Comment:Testing performed by : [address], [place]., [address] RDW SD 42.9 35.7 - 48.1 fL JARED PÉREZ Comment:Testing performed by : [address] [address] NRBC abs 0.00 0.00 - 0.01 K/cumm JARED PÉREZ Comment:Testing performed by : [address] [address] Blood 05/29/2024 6:03 AM OIL DRILLER 05/29/2024 8:14 AM OIL DRILLER us Notinfile Unknown LAB BLOOD ORDERABLES Final Res ult JARED PÉREZ [address] [place] [address] Department [place] [address] * (ABNORMAL) Basic metabolic panel (05/29/2024 6:03 AM OIL DRILLER) Sodium 138 135 - 145 mmol/L JARED PÉREZ Comment:Testing performed by : [address] [address] Potassium, pl 4.2 3.3 - 4.9 mmol/L JARED PÉREZ Comment:Testing performed by : [address] [address] Chloride 108 97 - 110 mmol/L JARED PÉREZ Comment:Testing performed by : [address] [address] CO2 20(L) 22 - 32 mmol/L JARED PÉREZ Comment:Testing performed by : [address] [address] Anion gap 10 2 - 15 mmol/L JARED Comment:Testing performed by : [address] [address] BUN 13 6 - 25 mg/dL JARED Comment:Testing performed by : [address] [address] Creatinine 0.96 0.60 - 1.10 mg/dL JARED Comment:Testing performed by : [address] [address] Glucose 91 70 - 199 mg/dL JARED [...] was last revised 2022. Testing performed by: [address] [address] Calcium 10.0 8.5 - 10.3 mg/dL JARED Comment:Testing performed by : [address] [address] Blood 05/29/2024 6:03 AM OIL DRILLER 05/29/2024 8:14 AM OIL DRILLER us Notinfile Unknown LAB BLOOD ORDERABLES Final Res ult JARED [address] [facility] Department [place] [address] * eGFR (05/26/2024 6:13 AM OIL DRILLER) eGFR 78 >=60 mL/min/1. 73 m2 JARED [...] was last reviewed 2021. Testing performed by: [facility], [address] [place] [address]., [address] Blood 05/26/2024 6:13 AM OIL DRILLER 05/26/2024 8:39 AM OIL DRILLER us Notinfile Unknown LAB BLOOD ORDERABLES Final Res ult [address] [address] * (ABNORMAL) Vitamin D 25 hydroxy (05/26/2024 6:13 AM OIL DRILLER) Vitamin D 25-OH 13.0(L) 30.0 - 80.0 ng/mL JARED Blood 05/26/2024 6:13 AM OIL DRILLER 05/26/2024 10:19 AM OIL DRILLER Notinfile Unknown LAB BLOOD ORDERABLES Final Res ult [address] [place] [address] * (ABNORMAL) Prealbumin (05/26/2024 6:13 AM OIL DRILLER) Prealbumin 13.2(L) 20.0 - 40.0 mg/dL JARED Comment:Specimen is Lipemic; results may be inaccurate due to high levels of lipids. Blood 05/26/2024 6:13 AM OIL DRILLER 05/26/2024 10:19 AM OIL DRILLER us Notinfile Unknown LAB BLOOD ORDERABLES Final Res ult Performing Organization Address City/[facility]/ZIP Co de Phone Number JARED [address] [address] * Phosphorus (05/26/2024 6:13 AM OIL DRILLER) Phosphorus, pl 4.1 2.3 - 4.5 mg/dL JARED Comment:Testing performed by : [address] [address] Blood 05/26/2024 6:13 AM OIL DRILLER 05/26/2024 8:39 AM OIL DRILLER us Notinfile Unknown LAB BLOOD ORDERABLES Final Res ult Performing Organization Address [facility] Co de Phone Number JARED [address] [address] * Magnesium (05/26/2024 6:13 AM OIL DRILLER) Magnesium 2.5 1.4 - 2.5 mg/dL JARED Comment:Testing performed by : [address] [address] Blood 05/26/2024 6:13 AM OIL DRILLER 05/26/2024 8:39 AM OIL DRILLER us Notinfile Unknown LAB BLOOD ORDERABLES Final Res ult Performing Organization Address [facility] de Phone Number JARED [address] [address] * Vitamin B12 (05/26/2024 6:13 AM OIL DRILLER) Vitamin B12 421 230 - 1,250 pg/mL JARED Comment:Testing performed by : [address] [address] Blood 05/26/2024 6:13 AM OIL DRILLER 05/26/2024 8:39 AM OIL DRILLER us Notinfile Unknown LAB BLOOD ORDERABLES Final Res ult [facility] [address] [facility] Department [place] [address] * (ABNORMAL) Comprehensive metabolic panel (05/26/2024 6:13 AM OIL DRILLER) Sodium 136 135 - 145 mmol/L JARED Comment:Testing performed by : [address] [address] Potassium, pl 4.4 3.3 - 4.9 mmol/L JARED Comment:Testing performed by : [address] [address] Chloride 105 97 - 110 mmol/L JARED Comment:Testing performed by : [address] [address] CO2 21(L) 22 - 32 mmol/L JARED Comment:Testing performed by : [address] [address] Anion gap 10 2 - 15 mmol/L JARED Comment:Testing performed by : [address] [address] BUN 15 6 - 25 mg/dL JARED Comment:Testing performed by : [address] [address] Creatinine 0.80 0.60 - 1.10 mg/dL JARED Comment:Testing performed by : [address] [address] Glucose 111 70 - 199 mg/dL JARED [...] was last revised 2022. Testing performed by: [address] [address] Calcium 10.4(H) 8.5 - 10.3 mg/dL JARED Comment:Testing performed by : [address] [address] Bilirubin, total 0.6 0.1 - 1.2 mg/dL JARED Comment:Testing performed by : [address] [address] Protein, pl 6.9 6.5 - 8.5 g/dL JARED Comment:Testing performed by : [address] [address] Albumin 3.8 3.5 - 5.0 g/dL JARED Comment:Testing performed by : [address] [address] Alk phos 92 40 - 130 Units/L JARED Comment:Testing performed by : [address] [address] ALT 8 7 - 45 Units/L JARED Comment:Testing performed by : [address] [address] AST 26 10 - 45 Units/L JARED Comment:Testing performed by : [address] [address] Blood 05/26/2024 6:13 AM OIL DRILLER 05/26/2024 8:39 AM OIL DRILLER us Notinfile Unknown LAB BLOOD ORDERABLES Final Res ult JARED PÉREZ [address] [facility] Department [place] [address] * POCT glucose (05/25/2024 12:22 PM OIL DRILLER) [facility] Signature Glucose, POC 146 70 - 199 mg/dL Comment:Testing performed by : [facility], [address] [place] [address]., [address] Glucose comment 1 Use This Result JARED Comment:Testing performed by : [address] [address] Glucose comment 2 RN/MD Notified JARED Comment:Testing performed by : [address] [address] Blood 05/25/2024 12:2 2 PM OIL DRILLER 05/25/2024 12:22 PM OIL DRILLER August Juan MD LAB POCT ORDERABLES - D EVICE Final Result Performing Organization Address [facility] Co de Phone Number JARED [address] [address] * POCT glucose (05/25/2024 7:46 AM OIL DRILLER) [facility] Glucose, POC 97 70 - 199 mg/dL Comment:Testing performed by : [facility], [address] [place] [address]., [address] Glucose comment 1 Use This Result JARED Comment:Testing performed by : [address] [address] Glucose comment 2 RN/MD Notified JARED Comment:Testing performed by : [address] [address] Blood 05/25/2024 7:46 AM OIL DRILLER 05/25/2024 7:46 AM OIL DRILLER Augsut Juan MD LAB POCT ORDERABLES - D EVICE Final Result Performing Organization Address City/[facility] Co de Phone Number [place] [address] [facility] [address] [place] [address] * eGFR (05/25/2024 6:01 AM OIL DRILLER) [facility] eGFR >90 >=60 mL/min/1. 73 m2 [...] was last reviewed 2021. Testing performed by: [address] [address] Blood 05/25/2024 6:01 AM OIL DRILLER 05/25/2024 6:27 AM OIL DRILLER us Jenise Joyce NP LAB BLOOD ORDERABLES Final Re sult JARED [facility]9 [facility] Department of Laboratories [place], [place] [id number] * Differential, auto (05/25/2024 6:01 AM OIL DRILLER) Neutrophil abs 5.6 1.5 - 6.5 K/cumm Comment:Testing performed by : [address] [address] Imm gran abs 0.0 0.0 - 0.1 K/cumm JARED Comment:Testing performed by : [address] [address] Lymphocyte abs 1.2 0.8 - 3.3 K/cumm JARED Comment:Testing performed by : [address] [address] Monocyte abs 0.7 0.2 - 0.8 K/cumm JARED Comment:Testing performed by : [address] [address] Eosinophil abs 0.2 0.0 - 0.5 K/cumm JARED Comment:Testing performed by : [address] [address] Basophil abs 0.1 0.0 - 0.1 K/ericm JARED Comment:Testing performed by : [address] [address] Neutrophil pct 72.0 % JARED Comment: Interpretive Data Percent cell count reference ranges are not reported, since discordance with absolute values may lead to misinterpretation of CBC data. Current Interpretive Data was last revised on 2017. Testing performed by: [address] [address] Imm gran pct 0.3 % JARED Comment: Interpretive Data Percent cell count reference ranges are not reported, since discordance with absolute values may lead to misinterpretation of CBC data. Current Interpretive Data was last revised on 2017. Testing performed by: [address] [address] Lymphocyte pct 15.7 % [facility] Comment: Interpretive Data Percent cell count reference ranges are not reported, since discordance with absolute values may lead to misinterpretation of CBC data. Current Interpretive Data was last revised on 2017. Testing performed by: [address] [address] Monocyte pct 8.5 % JARED Comment: Interpretive Data Percent cell count reference ranges are not reported, since discordance with absolute values may lead to misinterpretation of CBC data. Current Interpretive Data was last revised on 2017. Testing performed by: [address] [address] Eosinophil pct 2.2 % JARED Comment: Interpretive Data Percent cell count reference ranges are not reported, since discordance with absolute values may lead to misinterpretation of CBC data. Current Interpretive Data was last revised on 2017. Testing performed by: [address] [address] Basophil pct 1.3 % JARED Comment: Interpretive Data Percent cell count reference ranges are not reported, since discordance with absolute values may lead to misinterpretation of CBC data. Current Interpretive Data was last revised on 2017. Testing performed by: [address] [address] Blood 05/25/2024 6:01 AM OIL DRILLER 05/25/2024 6:27 AM OIL DRILLER us Jenise Joyce NP LAB BLOOD ORDERABLES Final [facility]ult [facility] [address] [facility] Department [place] [address] * (ABNORMAL) CBC with auto differential (05/25/2024 6:01 AM OIL DRILLER) WBC 7.8 3.8 - 9.9 K/cumm Comment:Testing performed by : [address] [address] Hgb 11.9 11.9 - 15.5 g/dL JARED Comment:Testing performed by : [address] [address] Hct 37.4 35.6 - 45.5 % JARED Comment:Testing performed by : [address] [address] Plt 315 150 - 400 K/cumm JARED Comment:Testing performed by : [address] [address] MPV 9.8 9.1 - 12.3 fL JARED Comment:Testing performed by : [address] [address] RBC 4.93 3.90 - 5.20 M/cumm JARED Comment:Testing performed by : [address] [address] MCV 75.9(L) 81.3 - 96.4 fL JARED PÉREZ Comment:Testing performed by : [address] [address] MCH 24.1(L) 27.1 - 33.3 pg JARED PÉREZ Comment:Testing performed by : [address] [address] MCHC 31.8(L) 32.3 - 35.7 g/dL JARED PÉREZ Comment:Testing performed by : [address] [address] RDW CV 15.1(H) 11.1 - 14.9 % JARED PÉREZ Comment:Testing performed by : [address] [address] RDW SD 41.2 35.7 - 48.1 fL JARED PÉREZ Comment:Testing performed by : [address] [address] NRBC abs 0.00 0.00 - 0.01 K/cumm JARED PÉREZ Comment:Testing performed by : [address] [address] Blood 05/25/2024 6:01 AM OIL DRILLER 05/25/2024 6:27 AM OIL DRILLER Jenise Joyce NP LAB BLOOD ORDERABLES Final Re sult Performing Organization Address City/State/[facility] Co de Phone Number JARED PÉREZ [address] [place] [address] Department [place] [address] * Basic metabolic panel (05/25/2024 6:01 AM OIL DRILLER) Sodium 136 135 - 145 mmol/L Comment:Testing performed by : [address] [address] Potassium, pl 4.3 3.3 - 4.9 mmol/L JARED PÉREZ Comment:Testing performed by : [address] [address] Chloride 104 97 - 110 mmol/L JARED PÉREZ Comment:Testing performed by : [address] [address] CO2 22 22 - 32 mmol/L JARDE PÉREZ Comment:Testing performed by : [address] [address] Anion gap 10 2 - 15 mmol/L JARED PÉREZ Comment:Testing performed by : [address] [address] BUN 12 6 - 25 mg/dL JARED PÉREZ Comment:Testing performed by : [address] [address] Creatinine 0.70 0.60 - 1.10 mg/dL JARED Comment:Testing performed by : [address] [address] Glucose 102 70 - 199 mg/dL JARED [...] was last revised 2022. Testing performed by: [address] [address] Calcium 10.2 8.5 - 10.3 mg/dL JARED Comment:Testing performed by : [address] [address] Blood 05/25/2024 6:01 AM OIL DRILLER 05/25/2024 6:27 AM OIL DRILLER Jenise Joyce NP LAB BLOOD ORDERABLES Final Re sult [facility] [address] [facility] Department [place] [address] * POCT glucose (05/24/2024 8:32 PM OIL DRILLER) [facility] Signature Glucose, POC 107 70 - 199 mg/dL Comment:Testing performed by : [address] [address] Glucose comment 1 Use This Result JARED PÉREZ Comment:Testing performed by : [address] [address] Blood 05/24/2024 8:32 PM OIL DRILLER 05/24/2024 8:32 PM OIL DRILLER us August Juan MD LAB POCT ORDERABLES - D EVICE Final Result Performing Organization Address [facility] de Phone Number JARED [address] [place] [address] * POCT glucose (05/24/2024 5:18 PM OIL DRILLER) Glucose, POC 103 70 - 199 mg/dL Comment:Testing performed by : [address] [address] Glucose comment 1 Use This Result JARED Comment:Testing performed by : [address] [address] Glucose comment 2 RN/MD Notified JARED Comment:Testing performed by : [address] [address] Blood 05/24/2024 5:18 PM OIL DRILLER 05/24/2024 5:18 PM OIL DRILLER August Juan MD LAB POCT ORDERABLES - D EVICE Final Result Performing Organization Address [facility] de Phone Number PETR[address] [address] * POCT glucose (05/24/2024 11:59 AM OIL DRILLER) Glucose, POC 171 70 - 199 mg/dL Comment:Testing performed by : [address] [address] Glucose comment 1 Use This Result JARED Comment:Testing performed by : [address] [address] Glucose comment 2 RN/MD Notified JRAED Comment:Testing performed by : [address] [address] Blood 05/24/2024 11:5 9 AM OIL DRILLER 05/24/2024 11:59 AM OIL DRILLER August Juan MD LAB POCT ORDERABLES - D EVICE Final Result Performing Organization Address City/[facility] Co de Phone Number JARED [facility]0 [place] [address] * eGFR (05/24/2024 7:58 AM OIL DRILLER) eGFR 77 >=60 mL/min/1. 73 m2 Comment: [...] was last reviewed 2021. Testing performed by: [address] [address] Blood 05/24/2024 7:58 AM OIL DRILLER 05/24/2024 9:06 AM OIL DRILLER us Jenise Joyce NP LAB BLOOD ORDERABLES Final Re sult [place] [id number] [facility] [place] [address] * Differential, auto (05/24/2024 7:58 AM OIL DRILLER) Pathologist [facility] Neutrophil abs 5.0 1.5 - 6.5 K/cumm Comment:Testing performed by : [address] [address] Imm gran abs 0.0 0.0 - 0.1 K/cumm JARED PÉREZ Comment:Testing performed by : [address] [address] Lymphocyte abs 1.2 0.8 - 3.3 K/cumm JARED PÉREZ Comment:Testing performed by : [address] [address] Monocyte abs 0.5 0.2 - 0.8 K/cumm [facility] Comment:Testing performed by : [address] [address] Eosinophil abs 0.1 0.0 - 0.5 K/cumm [facility] Comment:Testing performed by : [address] [address] Basophil abs 0.1 0.0 - 0.1 K/cumm [facility] Comment:Testing performed by : [address] [address] Neutrophil pct 71.8 % [facility] Comment: Interpretive Data Percent cell count reference ranges are not reported, since discordance with absolute values may lead to misinterpretation of CBC data. Current Interpretive Data was last revised on 2017. Testing performed by: [address] [address] Imm gran pct 0.4 % [facility] Comment: Interpretive Data Percent cell count reference ranges are not reported, since discordance with absolute values may lead to misinterpretation of CBC data. Current Interpretive Data was last revised on 2017. Testing performed by: [address] [address] Lymphocyte pct 16.8 % [facility] Comment: Interpretive Data Percent cell count reference ranges are not reported, since discordance with absolute values may lead to misinterpretation of CBC data. Current Interpretive Data was last revised on 2017. Testing performed by: [address] [address] Monocyte pct 7.8 % [facility] Comment: Interpretive Data Percent cell count reference ranges are not reported, since discordance with absolute values may lead to misinterpretation of CBC data. Current Interpretive Data was last revised on 2017. Testing performed by: [address] [address] Eosinophil pct 1.9 % [facility] Comment: Interpretive Data Percent cell count reference ranges are not reported, since discordance with absolute values may lead to misinterpretation of CBC data. Current Interpretive Data was last revised on 2017. Testing performed by: [address] [address] Basophil pct 1.3 % JARED PÉREZ Comment: Interpretive Data Percent cell count reference ranges are not reported, since discordance with absolute values may lead to misinterpretation of CBC data. Current Interpretive Data was last revised on 2017. Testing performed by: [address] [address] Blood 05/24/2024 7:58 AM OIL DRILLER 05/24/2024 9:08 AM OIL DRILLER us Jenise Joyce NP LAB BLOOD ORDERABLES Final Re sult JARED [address] [facility] Department [place] [address] * (ABNORMAL) CBC with auto differential (05/24/2024 7:58 AM OIL DRILLER) Pathologist [facility] WBC 7.0 3.8 - 9.9 K/cumm Comment:Testing performed by : [address] [address] Hgb 12.1 11.9 - 15.5 g/dL JARED PÉREZ Comment:Testing performed by : [address] [address] Hct 37.8 35.6 - 45.5 % JARED PÉREZ Comment:Testing performed by : [address] [address] Plt 318 150 - 400 K/cumm JARED Comment:Testing performed by : [address] [address] MPV 9.4 9.1 - 12.3 fL JARED PÉREZ Comment:Testing performed by : [address] [address] RBC 4.92 3.90 - 5.20 M/cumm JARED PÉREZ Comment:Testing performed by : [address] [address] MCV 76.8(L) 81.3 - 96.4 fL JARED PÉREZ Comment:Testing performed by : [address] [address] MCH 24.6(L) 27.1 - 33.3 pg JARED PÉREZ Comment:Testing performed by : [address] [address] MCHC 32.0(L) 32.3 - 35.7 g/dL JARED PÉREZ Comment:Testing performed by : [address] [address] RDW CV 15.2(H) 11.1 - 14.9 % JARED PÉREZ Comment:Testing performed by : [address] [address] RDW SD 41.7 35.7 - 48.1 fL JARED PÉREZ Comment:Testing performed by : [address] [address] NRBC abs 0.00 0.00 - 0.01 K/cumm JARED Comment:Testing performed by : [address] [address] Blood 05/24/2024 7:58 AM OIL DRILLER 05/24/2024 9:08 AM OIL DRILLER Jenise Joyce NP LAB BLOOD ORDERABLES Final Re sult JARED [address] [facility] Department [place] [address] * (ABNORMAL) Basic metabolic panel (05/24/2024 7:58 AM OIL DRILLER) Sodium 136 135 - 145 mmol/L Comment:Testing performed by : [address] [address] Potassium, pl 4.7 3.3 - 4.9 mmol/L JARED PÉREZ Comment: Hemolyzed; Potassium value may be falsely elevated by as much as 1.0 mmol/L. Suggest redraw and reanalysis. Testing performed by: [address] [address] Chloride 106 97 - 110 mmol/L JARED PÉREZ Comment:Testing performed by : [address] [address] CO2 20(L) 22 - 32 mmol/L JARED Comment:Testing performed by : [address] [address] Anion gap 10 2 - 15 mmol/L JARED Comment:Testing performed by : [address] [address] BUN 14 6 - 25 mg/dL JARED Comment:Testing performed by : [address] [address] Creatinine 0.81 0.60 - 1.10 mg/dL JARED Comment:Testing performed by : [address] [address] Glucose 99 70 - 199 mg/dL JARED [...] was last revised 2022. Testing performed by: [address] [address] Calcium 9.9 8.5 - 10.3 mg/dL JARED Comment:Testing performed by : [address] [address] Blood 05/24/2024 7:58 AM OIL DRILLER 05/24/2024 9:06 AM OIL DRILLER us Jenise Joyce NP LAB BLOOD ORDERABLES Final Re sult JARED PÉREZ 4529 [facility] Department of Laboratories [place], [place] [id number] * POCT glucose (05/24/2024 7:42 AM OIL DRILLER) Glucose, POC 99 70 - 199 mg/dL Comment:Testing performed by : [address] [address] Glucose comment 1 Use This Result JARED PÉREZ Comment:Testing performed by : [address] [address] Glucose comment 2 RN/MD Notified JARED Comment:Testing performed by : [address] [address] Blood 05/24/2024 7:42 AM OIL DRILLER 05/24/2024 7:42 AM OIL DRILLER August Juan MD LAB POCT ORDERABLES - D EVICE Final Result Performing Organization Address City/[facility] Co de Phone Number JARED [facility] [address] [address] * POCT glucose (05/23/2024 9:07 PM OIL DRILLER) [facility] Signature Glucose, POC 164 70 - 199 mg/dL Comment:Testing performed by : [address] [address] Glucose comment 1 Use This Result JARED PÉREZ Comment:Testing performed by : [address] [address] Glucose comment 2 RN/MD Notified JARED Comment:Testing performed by : [address] [address] Blood 05/23/2024 9:07 PM OIL DRILLER 05/23/2024 9:07 PM OIL DRILLER August Juan MD LAB POCT ORDERABLES - D EVICE Final Result Performing Organization Address City/[facility]/ZIP Co de Phone Number JARED [address] [place] [address] * POCT glucose (05/23/2024 5:55 PM OIL DRILLER) Glucose, POC 97 70 - 199 mg/dL Comment:Testing performed by : [address] [address] Glucose comment 1 Use This Result JARED Comment:Testing performed by : [address] [address] Glucose comment 2 RN/MD Notified JARED Comment:Testing performed by : [address] [address] Blood 05/23/2024 5:55 PM OIL DRILLER 05/23/2024 5:55 PM OIL DRILLER August Juan MD LAB POCT ORDERABLES - D EVICE Final Result Performing Organization Address [facility] Co de Phone Number JARED [facility]0 [facility] [place] [address] * POCT glucose (05/23/2024 11:06 AM OIL DRILLER) Glucose, POC 191 70 - 199 mg/dL Comment:Testing performed by : [address] [address] Glucose comment 1 Use This Result JARED Comment:Testing performed by : [address] [address] Glucose comment 2 RN/MD Notified JARED Comment:Testing performed by : [address] [address] Blood 05/23/2024 11:0 6 AM OIL DRILLER 05/23/2024 11:06 AM OIL DRILLER August Juan MD LAB POCT ORDERABLES - D EVICE Final Result Performing Organization Address [facility] Co de Phone Number [place] [address] [facility] [place] [address] * POCT glucose (05/23/2024 8:02 AM OIL DRILLER) Glucose, POC 109 70 - 199 mg/dL Comment:Testing performed by : [address] [address] Glucose comment 1 Use This Result JARED Comment:Testing performed by : [address] [place] [address] Glucose comment 2 RN/MD Notified JARED Comment:Testing performed by : [facility], [address] [place] [address]., [address] Blood 05/23/2024 8:02 AM OIL DRILLER 05/23/2024 8:02 AM OIL DRILLER us August Juan MD LAB POCT ORDERABLES - D EVICE Final Result Performing Organization Address [facility] Co de Phone Number JARED [address] [place] [address] * eGFR (05/23/2024 5:34 AM OIL DRILLER) eGFR >90 >=60 mL/min/1. 73 m2 Comment: [...] was last reviewed 2021. Testing performed by: [facility], [address] [place] [address]., [address] Blood 05/23/2024 5:34 AM OIL DRILLER 05/23/2024 6:19 AM OIL DRILLER us Jenise Joyce NP LAB BLOOD ORDERABLES Final Re sult Performing Organization Address City/[facility]/ZIP Co de Phone Number PETR[address] [place] [address] * Differential, auto (05/23/2024 5:34 AM OIL DRILLER) Neutrophil abs 5.5 1.5 - 6.5 K/cumm Comment:Testing performed by : [address] [address] Imm gran abs 0.1 0.0 - 0.1 K/cumm [facility] Comment:Testing performed by : [address] [address] Lymphocyte abs 1.6 0.8 - 3.3 K/cumm [facility] Comment:Testing performed by : [address] [address] Monocyte abs 0.8 0.2 - 0.8 K/cumm [facility] Comment:Testing performed by : [address] [address] Eosinophil abs 0.2 0.0 - 0.5 K/cumm [facility] Comment:Testing performed by : [address] [address] Basophil abs 0.1 0.0 - 0.1 K/cumm [facility] Comment:Testing performed by : [address] [address] Neutrophil pct 66.9 % [facility] Comment: Interpretive Data Percent cell count reference ranges are not reported, since discordance with absolute values may lead to misinterpretation of CBC data. Current Interpretive Data was last revised on 2017. Testing performed by: [address] [address] Imm gran pct 1.1 % [facility] Comment: Interpretive Data Percent cell count reference ranges are not reported, since discordance with absolute values may lead to misinterpretation of CBC data. Current Interpretive Data was last revised on 2017. Testing performed by: [address] [address] Lymphocyte pct 19.0 % [facility] Comment: Interpretive Data Percent cell count reference ranges are not reported, since discordance with absolute values may lead to misinterpretation of CBC data. Current Interpretive Data was last revised on 2017. Testing performed by: [address] [address] Monocyte pct 9.6 % JARED Comment: Interpretive Data Percent cell count reference ranges are not reported, since discordance with absolute values may lead to misinterpretation of CBC data. Current Interpretive Data was last revised on 2017. Testing performed by: [address] [address] Eosinophil pct 2.1 % JARED Comment: Interpretive Data Percent cell count reference ranges are not reported, since discordance with absolute values may lead to misinterpretation of CBC data. Current Interpretive Data was last revised on 2017. Testing performed by: [address] [address] Basophil pct 1.3 % JARED Comment: Interpretive Data Percent cell count reference ranges are not reported, since discordance with absolute values may lead to misinterpretation of CBC data. Current Interpretive Data was last revised on 2017. Testing performed by: [address] [address] Blood 05/23/2024 5:34 AM OIL DRILLER 05/23/2024 6:19 AM OIL DRILLER us Jenise Joyce NP LAB BLOOD ORDERABLES Final Re sult JARED [address] [facility] Department of Laboratories [place], [place] [id number] * (ABNORMAL) CBC with auto differential (05/23/2024 5:34 AM OIL DRILLER) Pathologist [facility] WBC 8.2 3.8 - 9.9 K/cumm Comment:Testing performed by : [address] [address] Hgb 11.9 11.9 - 15.5 g/dL JARED PÉREZ Comment:Testing performed by : [address] [address] Hct 37.9 35.6 - 45.5 % JARED PÉREZ Comment:Testing performed by : [address] [address] Plt 295 150 - 400 K/cumm JARED PÉREZ Comment:Testing performed by : [address] [address] MPV 9.4 9.1 - 12.3 fL JARED PÉREZ Comment:Testing performed by : [address] [address] RBC 4.95 3.90 - 5.20 M/cumm JARED PÉREZ Comment:Testing performed by : [address] [address] MCV 76.6(L) 81.3 - 96.4 fL JARED Comment:Testing performed by : [address] [address] MCH 24.0(L) 27.1 - 33.3 pg JARED Comment:Testing performed by : [address] [address] MCHC 31.4(L) 32.3 - 35.7 g/dL JARED Comment:Testing performed by : [address] [address] RDW CV 15.3(H) 11.1 - 14.9 % JARED Comment:Testing performed by : [address] [address] RDW SD 42.3 35.7 - 48.1 fL JARED Comment:Testing performed by : [address] [address] NRBC abs 0.00 0.00 - 0.01 K/cumm JARED Comment:Testing performed by : [address] [address] Blood 05/23/2024 5:34 AM OIL DRILLER 05/23/2024 6:19 AM OIL DRILLER Jenise Joyce NP LAB BLOOD ORDERABLES Final Re sult JARED 2508 [facility] Department of Laboratories [place], [place] [id number] * (ABNORMAL) Basic metabolic panel (05/23/2024 5:34 AM OIL DRILLER) Sodium 138 135 - 145 mmol/L Comment:Testing performed by : [address], [place]., [address] Potassium, pl 4.1 3.3 - 4.9 mmol/L JARED Comment:Testing performed by : [address], [place]., [address] Chloride 107 97 - 110 mmol/L JARED Comment:Testing performed by : [address], [place]., [address] CO2 20(L) 22 - 32 mmol/L JARED Comment:Testing performed by : [address], [place]., [address] Anion gap 11 2 - 15 mmol/L JARED Comment:Testing performed by : [address], [place]., [address] BUN 13 6 - 25 mg/dL JARED Comment:Testing performed by : [address], [place]., [address] Creatinine 0.70 0.60 - 1.10 mg/dL JARED Comment:Testing performed by : [address], [place]., [address] Glucose 106 70 - 199 mg/dL JARED [...] was last revised 2022. Testing performed by: [address] [address] Calcium 9.7 8.5 - 10.3 mg/dL JARED Comment:Testing performed by : [address], [place]., [address] Blood 05/23/2024 5:34 AM OIL DRILLER 05/23/2024 6:19 AM OIL DRILLER us Jenise Joyce NP LAB BLOOD ORDERABLES Final Re sult Performing Organization Address [facility] Co de Phone Number JARED [address] [place] [address] * POCT glucose (05/22/2024 9:13 PM OIL DRILLER) [facility] Signature Glucose, POC 171 70 - 199 mg/dL Comment:Testing performed by : [facility], [address] [place] [address]., [address] Glucose comment 1 Use This Result JARED Comment:Testing performed by : [address] [address] Blood 05/22/2024 9:13 PM OIL DRILLER 05/22/2024 9:13 PM OIL DRILLER Christiano Cummins MD LAB POCT ORDERABLES - DEVICE Final Result Performing Organization Address [facility] Co de Phone Number JARED [facility]0 [place] [address] * CTA Head Neck W WO Contrast (05/22/2024 8:04 PM OIL DRILLER) Anatomical Region Laterality Modality Head and Neck N/A Computed Tomogra phy 05/22/2024 10:1 0 PM OIL DRILLER Narrative 05/22/2024 10:25 PM OIL DRILLER EXAM DESCRIPTION: CTA HEAD NECK W WO [...] thickening. ORBITS: No significant abnormality. INTRACRANIAL VESSELS [place]: The posterior communicating arteries are not well visualized bilaterally. The khvdrm-bx-Tfrwcb is otherwise intact. ANTERIOR CIRCULATION: There is [...] by Duyen Bautista M.D. SN: Report ID: [id number] Reading Location: [id number] Procedure Note Duyen Bautista MD - 05/22/2024 [...] thickening. ORBITS: No significant abnormality. INTRACRANIAL VESSELS [place]: The posterior communicating arteries are not wellvisualized bilaterally. The pqvboe-ok-Dzozdi is otherwise intact. ANTERIOR CIRCULATION: There is [...] by Duyen Bautista M.D. SN: Report ID: [id number] Reading Location: [id number] us Amita Bledsoe MD IMG CT PROCEDURES Fin al Result * POCT glucose (05/22/2024 6:14 PM OIL DRILLER) [facility] Glucose, POC 90 70 - 199 mg/dL Comment:Testing performed by : [facility], [address] [place] [address]., [address] Glucose comment 1 Use This Result JARED PÉREZ Comment:Testing performed by : [address] [address] Glucose comment 2 RN/MD Notified JARED PÉREZ Comment:Testing performed by : [address] [address] Blood 05/22/2024 6:14 PM OIL DRILLER 05/22/2024 6:14 PM OIL DRILLER Christiano Cummins MD LAB POCT ORDERABLES - DEVICE Final Result Performing Organization Address City/State/[facility] Co de Phone Number JARED [address] [facility] Department of Laboratories [place], [place] [id number] * TRANSTHORACIC ECHO (TTE) COMPLETE W DOPPLER/CF W CONTRAST W BUBBLE (05/22/2024 2:20 PM OIL DRILLER) Anatomical Region Laterality Modality Ultrasound 05/22/2024 1:27 PM OIL DRILLER Narrative 05/23/2024 11:17 AM OIL DRILLER Adult Echocardiogram + ----- + :Name: PINKY YAO Study Date: 05/22/2024 Status: MHE : : Patient Location: [address]^[id number]^MHeit: 65 in : : Weight: 170 lbBP: [...] bubble study shows no evidence of intracardiac pbpmk-gc-mice shunting, i.e. no evidence of patent foramen [...] bubble study shows no evidence of intracardiac qrpxr-at-vfih shunting, i.e. no evidence of patent foramen [...] Date: 05/22/2024Status: MHE : : Patient Location: [address]^[id number]^MHeight: 65 in : : : 170 lbBP: [...] bubble study shows no evidence of intracardiac rdfip-oc-cezz shunting,i.e. no evidence of patent foramen ovale [...] bubble study shows no evidence of intracardiac hejaf-dv-bicm shunting,i.e. no evidence of patent foramen ovale [...] lt * POCT glucose (05/22/2024 12:48 PM OIL DRILLER) [facility] Glucose, POC 172 70 - 199 mg/dL Comment:Testing performed by : [address] [address] Glucose comment 1 Use This Result JARED PÉREZ Comment:Testing performed by : [address] [address] Glucose comment 2 RN/ Notified JARED PÉREZ Comment:Testing performed by : [address] [address] Blood 05/22/2024 12:4 8 PM OIL DRILLER 05/22/2024 12:48 PM OIL DRILLER Christiano Cummins MD LAB POCT ORDERABLES - DEVICE Final Result JARED [address] [facility] Department [place] [address] * ECG 12 lead (05/22/2024 10:35 AM OIL DRILLER) Pathologist [facility] Ventricular Rate EKG/Min [address] [facility] Atrial Rate 70 BPM [facility] VA-Interval (MSEC) 210 ms [facility] QRS-Interval (MSEC) [address] [facility] QT-Interval (MSEC) 412 ms [facility] QTc 444 ms [facility] P [place] 39 degrees [facility] R [place] -9 degrees [facility] T [place] -3 degrees [facility] Diagnosis Sinus rhythm with 1st degree A-V block Moderate voltage criteria for LVH, may be normal variant Inferior infarct , age undetermined Abnormal ECG No previous ECGs available Confirmed by ASPEN RAHMAN M.D. ([id number]) on 05/23/2024 7:37:36 AM [facility] 05/22/2024 10:3 5 AM OIL DRILLER 05/23/2024 7:37 AM OIL DRILLER Jenise Joyce NP ECG ORDERABLES Final Result Performing Organization Address [facility] Co de Phone Number [facility] * US Carotids Duplex Bilateral (05/22/2024 9:28 AM OIL DRILLER) Anatomical Region Laterality Modality Vascular Bilateral Ultrasound 05/22/2024 Narrative 05/26/2024 7:36 AM OIL DRILLER [employer] Job ID: [id number] [employer] Document ID: [id number] Dictated date/time: [id number] BILATERAL CAROTID DUPLEX REASON FOR EXAM Stroke. [...] internal carotid arteries. Job ID/Internal Job ID: [id number] us Jenise Joyce BEE RANCHER IMG US PROCEDURES Final Resul t * POCT glucose (05/22/2024 8:56 AM OIL DRILLER) Glucose, POC 105 70 - 199 mg/dL Comment:Testing performed by : [address] [address] Glucose comment 1 Use This Result JARED Comment:Testing performed by : [address], [address] Glucose comment 2 RN/MD Notified JARED PÉREZ Comment:Testing performed by : [address] [address] Blood 05/22/2024 8:56 AM OIL DRILLER 05/22/2024 8:56 AM OIL DRILLER Christiano Cummins MD LAB POCT ORDERABLES - DEVICE Final Result [facility] [address] [facility] Department [place] [address] * (ABNORMAL) Iron profile w/ IBC (05/22/2024 8:03 AM OIL DRILLER) Pathologist [facility] Iron 46 35 - 145 mcg/dL Comment:Testing performed by : [address] [address] TIBC 319 250 - 400 mcg/dL JARED Comment:Testing performed by : [address] [address] Transferrin saturation 14(L) 20 - 50 % JARED Comment:Testing performed by : [address] [address] Blood 05/22/2024 8:03 AM OIL DRILLER 05/22/2024 9:04 AM OIL DRILLER Christiano Cummins MD LAB BLOOD ORDERABLES Final R esult Performing Organization Address City/[facility] Co de Phone Number JARED [address] [place] [address] * (ABNORMAL) Vitamin D 25 hydroxy (05/22/2024 8:03 AM OIL DRILLER) [facility] Vitamin D 25-OH 9.0(L) 30.0 - 80.0 ng/mL Blood 05/22/2024 8:03 AM OIL DRILLER 05/22/2024 12:51 PM OIL DRILLER Christiano Cummins MD LAB BLOOD ORDERABLES Final R esult Performing Organization Address [facility] Co de Phone Number PETR[address] [address] * Folate (05/22/2024 8:03 AM OIL DRILLER) [facility] Folic acid 6.0 >=5.0 ng/mL Comment:Testing performed by : [facility], [address] [place] [address], [address] Blood 05/22/2024 8:03 AM OIL DRILLER 05/22/2024 9:04 AM OIL DRILLER Christiano Cummins MD LAB BLOOD ORDERABLES Final [facility] care services Performing Organization Address [facility] Co de Phone Number [address] [place] [address] * eGFR (05/22/2024 5:52 AM OIL DRILLER) [facility] eGFR >90 >=60 mL/min/1. 73 m2 [...] was last reviewed 2021. Testing performed by: [address] [address] Blood 05/22/2024 5:52 AM OIL DRILLER 05/22/2024 6:01 AM OIL DRILLER us Jenise Joyce NP LAB BLOOD ORDERABLES Final Re sult JARED [address] [facility] Department [place] [address] * Differential, auto (05/22/2024 5:52 AM OIL DRILLER) Neutrophil abs 5.2 1.5 - 6.5 K/cumm Comment:Testing performed by : [address] [address] Imm gran abs 0.0 0.0 - 0.1 K/cumm JARED Comment:Testing performed by : [address] [address] Lymphocyte abs 1.3 0.8 - 3.3 K/cumm JARED Comment:Testing performed by : [address] [address] Monocyte abs 0.7 0.2 - 0.8 K/cumm JARED Comment:Testing performed by : [address] [address] Eosinophil abs 0.1 0.0 - 0.5 K/cumm JARED Comment:Testing performed by : [address] [address] Basophil abs 0.1 0.0 - 0.1 K/cumm JARED Comment:Testing performed by : [address] [address] Neutrophil pct 70.2 % [facility] Comment: Interpretive Data Percent cell count reference ranges are not reported, since discordance with absolute values may lead to misinterpretation of CBC data. Current Interpretive Data was last revised on 2017. Testing performed by: [address] [address] Imm gran pct 0.3 % [facility] Comment: Interpretive Data Percent cell count reference ranges are not reported, since discordance with absolute values may lead to misinterpretation of CBC data. Current Interpretive Data was last revised on 2017. Testing performed by: [address] [address] Lymphocyte pct 17.7 % [facility] Comment: Interpretive Data Percent cell count reference ranges are not reported, since discordance with absolute values may lead to misinterpretation of CBC data. Current Interpretive Data was last revised on 2017. Testing performed by: [address] [address] Monocyte pct 8.8 % [facility] Comment: Interpretive Data Percent cell count reference ranges are not reported, since discordance with absolute values may lead to misinterpretation of CBC data. Current Interpretive Data was last revised on 2017. Testing performed by: [address] [address] Eosinophil pct 1.8 % [facility] Comment: Interpretive Data Percent cell count reference ranges are not reported, since discordance with absolute values may lead to misinterpretation of CBC data. Current Interpretive Data was last revised on 2017. Testing performed by: [address] [address] Basophil pct 1.2 % [facility] Comment: Interpretive Data Percent cell count reference ranges are not reported, since discordance with absolute values may lead to misinterpretation of CBC data. Current Interpretive Data was last revised on 2017. Testing performed by: [address] [address] Blood 05/22/2024 5:52 AM OIL DRILLER 05/22/2024 6:01 AM OIL DRILLER us Jenise Joyce NP LAB BLOOD ORDERABLES Final Re sult JARED [address] [facility] Department of Laboratories [place], [place] [id number] * (ABNORMAL) CBC with auto differential (05/22/2024 5:52 AM OIL DRILLER) WBC 7.4 3.8 - 9.9 K/cumm Comment:Testing performed by : [address] [address] Hgb 11.6(L) 11.9 - 15.5 g/dL JARED Comment:Testing performed by : [address] [address] Hct 37.4 35.6 - 45.5 % JARED Comment:Testing performed by : [address] [address] Plt 278 150 - 400 K/cumm JARED Comment:Testing performed by : [address] [address] MPV 9.2 9.1 - 12.3 fL JARED Comment:Testing performed by : [address] [address] RBC 4.85 3.90 - 5.20 M/cumm JARED PÉREZ Comment:Testing performed by : [address] [address] MCV 77.1(L) 81.3 - 96.4 fL JARED Comment:Testing performed by : [address] [address] MCH 23.9(L) 27.1 - 33.3 pg JARED Comment:Testing performed by : [address] [address] MCHC 31.0(L) 32.3 - 35.7 g/dL JARED Comment:Testing performed by : [address] [address] RDW CV 15.2(H) 11.1 - 14.9 % JARED Comment:Testing performed by : [address] [address] RDW SD 42.2 35.7 - 48.1 fL JARED PÉREZ Comment:Testing performed by : [facility], [address] [place] [address]., [address] NRBC abs 0.00 0.00 - 0.01 K/cumm JARED PÉREZ Comment:Testing performed by : [address] [address] Blood 05/22/2024 5:52 AM OIL DRILLER 05/22/2024 6:01 AM OIL DRILLER Jenise Joyce NP LAB BLOOD ORDERABLES Final Re sult Performing Organization Address [facility] Co de Phone Number [place] [address] [facility] [place] [address] * CRP (acute phase) (05/22/2024 5:52 AM OIL DRILLER) CRP 1.8 <=10.0 mg/L Comment:Testing performed by : [address] [address] Blood 05/22/2024 5:52 AM OIL DRILLER 05/22/2024 6:01 AM OIL DRILLER Christiano Cummins MD LAB BLOOD ORDERABLES Final R esult Performing Organization Address [facility] de Phone Number [place] [address] [place] [address] * Magnesium (05/22/2024 5:52 AM OIL DRILLER) Magnesium 2.2 1.4 - 2.5 mg/dL Comment:Testing performed by : [address] [address] Blood 05/22/2024 5:52 AM OIL DRILLER 05/22/2024 6:01 AM OIL DRILLER Christiano Cummins MD LAB BLOOD ORDERABLES Final R esult Performing Organization Address [facility]/ZIP Co de Phone Number [facility] [address] [facility] Department [place] [address] * Ferritin (05/22/2024 5:52 AM OIL DRILLER) Pathologist [facility] Ferritin 18 15 - 150 ng/mL Comment:Testing performed by : [address] [address] Blood 05/22/2024 5:52 AM OIL DRILLER 05/22/2024 6:01 AM OIL DRILLER us Christiano Cmumins MD LAB BLOOD ORDERABLES Final R esult JARED [facility] [place] [address] * Basic metabolic panel (05/22/2024 5:52 AM OIL DRILLER) Pathologist [facility] Sodium 139 135 - 145 mmol/L Comment:Testing performed by : [address] [address] Potassium, pl 4.0 3.3 - 4.9 mmol/L JARED Comment:Testing performed by : [address] [address] Chloride 107 97 - 110 mmol/L JARED Comment:Testing performed by : [address] [address] CO2 25 22 - 32 mmol/L JARED Comment:Testing performed by : [address] [address] Anion gap 7 2 - 15 mmol/L JARED Comment:Testing performed by : [address] [address] BUN 12 6 - 25 mg/dL JARED Comment:Testing performed by : [address] [address] Creatinine 0.70 0.60 - 1.10 mg/dL JARED Comment:Testing performed by : [address] [address] Glucose 106 70 - 199 mg/dL JARED [...] was last revised 2022. Testing performed by: [address] [address] Calcium 9.7 8.5 - 10.3 mg/dL JARED Comment:Testing performed by : [address] [address] Blood 05/22/2024 5:52 AM OIL DRILLER 05/22/2024 6:01 AM OIL DRILLER us Jenise Joyce NP LAB BLOOD ORDERABLES Final Re sult Performing Organization Address City/[facility] Co de Phone Number [facility] [address] [facility] [address] [place] [address] * POCT glucose (05/21/2024 7:39 PM OIL DRILLER) [facility] Glucose, POC 120 70 - 199 mg/dL Comment:Testing performed by : [address] [address] Glucose comment 1 Use This Result JARED Comment:Testing performed by : [address] [address] Glucose comment 2 RN/MD Notified JARED Comment:Testing performed by : [address] [address] Blood 05/21/2024 7:39 PM OIL DRILLER 05/21/2024 7:39 PM OIL DRILLER Zay Toledo MD LAB POCT ORDERABLE S - DEVICE Final Result Performing Organization Address City/[facility]/ZIP Co de Phone Number [facility] [address] Department [place] [address] * MRI Brain WO Contrast (05/21/2024 6:34 PM OIL DRILLER) Anatomical Region Laterality Modality Head and Neck N/A Magnetic Resonan ce 05/21/2024 8:27 PM OIL DRILLER Narrative 05/21/2024 8:46 PM OIL DRILLER EXAM DESCRIPTION: MRI BRAIN WO CONTRAST REASON [...] Johnie Barrera M.D. MF: VENUS Report ID: [id number] Reading Location: [place] [address] Procedure Note Bruce Johnie Pepe, DO - 05/21/2024 EXAM DESCRIPTION: MRI BRAIN WO CONTRAST REASON FOR STUDY: Neuro deficit, acute, stroke suspected Neuro deficit, acute, stroke suspected TECHNIQUE: Multiplanar imaging includes non-contrasted T1, T2, FLAIR, and diffusion with ADC map sequences. Additional sequence(s) sensitive CiiNOWlood products. Images stored on PACS. COMPARISON: None [...] Johnie Barrera M.D. MF: VENUS Report ID: [id number] Reading Location: [place] [address] Jenise Joyce NP IM MRI PROCEDURES Final Resu lt * CT Body Outside Reference (05/21/2024 4:52 PM OIL DRILLER) Narrative TRISTIAN_MHE - 05/21/2024 4:52 PM OIL DRILLER This order has been auto-finalized and does not contain a result. us Provider Transcribed Order IMG CT PROCEDURES Fin al Result Performing Organization Address [facility] Co de Phone Number JENELLE_NADYA_ELISAB_MHE * CT Body Outside Reference (05/21/2024 4:46 PM OIL DRILLER) Narrative TRISTIAN_ELISAE - 05/21/2024 4:46 PM OIL DRILLER This order has been auto-finalized and does not contain a result. us Provider Transcribed Order IMG CT PROCEDURES Fin al Result Performing Organization Address [facility] de Phone Number JENELLE_NADYA_ELISAB_MHE * POCT glucose (05/21/2024 4:31 PM OIL DRILLER) [facility] Glucose, POC 113 70 - 199 mg/dL Comment:Testing performed by : [address] [address] Glucose comment 1 Use This Result JARED PÉREZ Comment:Testing performed by : [address] [address] Glucose comment 2 RN/MD Notified JARED Comment:Testing performed by : [address] [address] Blood 05/21/2024 4:31 PM OIL DRILLER 05/21/2024 4:31 PM OIL DRILLER Zay Toledo MD LAB POCT ORDERABLE S - DEVICE Final Result Performing Organization Address [facility] Co de Phone Number JARED [address] [facility] Department [place] [address] * eGFR (05/21/2024 3:03 PM OIL DRILLER) Pathologist [facility] eGFR 68 >=60 mL/min/1. 73 m2 Comment: [...] was last reviewed 2021. Testing performed by: [address] [address] Blood 05/21/2024 3:03 PM OIL DRILLER 05/21/2024 3:05 PM OIL DRILLER us Jenise Joyce NP LAB BLOOD ORDERABLES Final Re sult JARED [address] [facility] Department [place] [address] * Differential, auto (05/21/2024 3:03 PM OIL DRILLER) Pathologist [facility] Neutrophil abs 4.0 1.5 - 6.5 K/cumm Comment:Testing performed by : [address] [address] Imm gran abs 0.0 0.0 - 0.1 K/cumm JARED PÉREZ Comment:Testing performed by : [address] [address] Lymphocyte abs 1.2 0.8 - 3.3 K/cumm JARED Comment:Testing performed by : [address] [address] Monocyte abs 0.6 0.2 - 0.8 K/cumm [facility] Comment:Testing performed by : [address] [address] Eosinophil abs 0.2 0.0 - 0.5 K/cumm JARED Comment:Testing performed by : [address], [place]., [address] Basophil abs 0.1 0.0 - 0.1 K/cumm [facility] Comment:Testing performed by : [address] [address] Neutrophil pct 66.3 % [facility] Comment: Interpretive Data Percent cell count reference ranges are not reported, since discordance with absolute values may lead to misinterpretation of CBC data. Current Interpretive Data was last revised on 2017. Testing performed by: [address] [address] Imm gran pct 0.3 % [facility] Comment: Interpretive Data Percent cell count reference ranges are not reported, since discordance with absolute values may lead to misinterpretation of CBC data. Current Interpretive Data was last revised on 2017. Testing performed by: [address] [address] Lymphocyte pct 19.6 % [facility] Comment: Interpretive Data Percent cell count reference ranges are not reported, since discordance with absolute values may lead to misinterpretation of CBC data. Current Interpretive Data was last revised on 2017. Testing performed by: [address] [address] Monocyte pct 9.7 % [facility] Comment: Interpretive Data Percent cell count reference ranges are not reported, since discordance with absolute values may lead to misinterpretation of CBC data. Current Interpretive Data was last revised on 2017. Testing performed by: [address] [address] Eosinophil pct 2.5 % [facility] Comment: Interpretive Data Percent cell count reference ranges are not reported, since discordance with absolute values may lead to misinterpretation of CBC data. Current Interpretive Data was last revised on 2017. Testing performed by: [address] [address] Basophil pct 1.6 % JARED Comment: Interpretive Data Percent cell count reference ranges are not reported, since discordance with absolute values may lead to misinterpretation of CBC data. Current Interpretive Data was last revised on 2017. Testing performed by: [address] [address] Blood 05/21/2024 3:03 PM OIL DRILLER 05/21/2024 3:05 PM OIL DRILLER [employer] [facility] LAB BLOOD ORDERABLES Final Re sult Performing Organization Address [facility] Co de Phone Number [address] [place] [address] * Thyroid Function [place] (05/21/2024 3:03 PM OIL DRILLER) Pathologist [facility] TSH 1.23 0.30 - 4.20 mcIUnit/mL Comment:Testing performed by : [address] [address] Blood 05/21/2024 3:03 PM OIL DRILLER 05/21/2024 3:05 PM OIL DRILLER [facility] LAB BLOOD ORDERABLES Final Re sult Performing Organization Address [facility] Co de Phone Number [address] [address] * (ABNORMAL) CBC with auto differential (05/21/2024 3:03 PM OIL DRILLER) Pathologist [facility] WBC 6.1 3.8 - 9.9 K/cumm Comment:Testing performed by : [address] [address] Hgb 11.8(L) 11.9 - 15.5 g/dL JARED PÉREZ Comment:Testing performed by : [address] [address] Hct 37.7 35.6 - 45.5 % JARED PÉREZ Comment:Testing performed by : [address] [address] Plt 291 150 - 400 K/cumm JARED Comment:Testing performed by : [address] [address] MPV 9.4 9.1 - 12.3 fL JARED PÉREZ Comment:Testing performed by : [address] [address] RBC 4.86 3.90 - 5.20 M/cumm JARED PÉREZ Comment:Testing performed by : [address] [address] MCV 77.6(L) 81.3 - 96.4 fL JARED Comment:Testing performed by : [address] [address] MCH 24.3(L) 27.1 - 33.3 pg JARED Comment:Testing performed by : [address] [address] MCHC 31.3(L) 32.3 - 35.7 g/dL JARED Comment:Testing performed by : [address] [address] RDW CV 15.3(H) 11.1 - 14.9 % JARED Comment:Testing performed by : [address] [address] RDW SD 42.9 35.7 - 48.1 fL JARED Comment:Testing performed by : [address] [address] NRBC abs 0.00 0.00 - 0.01 K/cumm JARED Comment:Testing performed by : [address] [address] Blood 05/21/2024 3:03 PM OIL DRILLER 05/21/2024 3:05 PM OIL DRILLER us Jenise Joyce NP LAB BLOOD ORDERABLES Final Re sult JARED [address] [facility] Department of Laboratories [place], [place] [id number] * (ABNORMAL) Hemoglobin A1c (05/21/2024 3:03 PM OIL DRILLER) Hgb A1C 6.7(H) 4.0 - 5.6 % Comment:Testing performed by : [address] [address] Estimated Average Glucose 146 mg/dL JARED Comment: The ADA recommends reporting an estimated Average Glucose (eAG) with all Hemoglobin A1c results using the equation derived from a study of 507 normal and diabetic adults. Minority populations were underrepresented and children were not included. (Diabetes Care 31:9641-9465, 2008). The eAG is not equivalent to a fasting glucose. Testing performed by: [address] [address] Blood 05/21/2024 3:03 PM OIL DRILLER 05/21/2024 3:05 PM OIL DRILLER us Jenise Joyce NP LAB BLOOD ORDERABLES Final Re sult JARED [address] [facility] Department [place] [address] * Lipid panel (05/21/2024 3:03 PM OIL DRILLER) Pathologist [facility] Cholesterol 167 30 - 199 mg/dL Comment: [...] last revised on 2017. Testing performed by: [address] [address] Triglycerides 100 <=149 mg/dL JARED Comment: Interpretive [...] last revised on 2017. Testing performed by: [address] [address] HDL 44 >=40 mg/dL [facility] Comment: Interpretive Data Ages < or = [...] last revised on 2017. Testing performed by: [address] [address] LDL, calculated 105 <=129 mg/dL JARED Comment: [...] last revised on 2023. Testing performed by: [address] [address] Non-HDL Cholesterol 123 mg/dL JARED PÉREZ Comment: [...] last revised on 2017. Testing performed by: [address] [address] Chol/HDL ratio 4 JARED PÉREZ Comment:Testing performed by : [address] [address] Blood 05/21/2024 3:03 PM OIL DRILLER 05/21/2024 3:05 PM OIL DRILLER us Jenise Joyce NP LAB BLOOD ORDERABLES Final Re sult JARED PÉREZ [address] [facility] Department of Laboratories [place], [place] [id number] * Basic metabolic panel (05/21/2024 3:03 PM OIL DRILLER) Sodium 140 135 - 145 mmol/L Comment:Testing performed by : [address] [address] Potassium, pl 4.1 3.3 - 4.9 mmol/L JARED PÉREZ Comment:Testing performed by : [address] [address] Chloride 107 97 - 110 mmol/L JARED PÉREZ Comment:Testing performed by : [address] [address] CO2 24 22 - 32 mmol/L JARED PÉREZ Comment:Testing performed by : [address] [address] Anion gap 9 2 - 15 mmol/L JARED Comment:Testing performed by : [address] [address] BUN 12 6 - 25 mg/dL JARED Comment:Testing performed by : [address] [address] Creatinine 0.90 0.60 - 1.10 mg/dL JARED Comment:Testing performed by : [address] [address] Glucose 99 70 - 199 mg/dL JARED [...] was last revised 2022. Testing performed by: [address] [address] Calcium 9.6 8.5 - 10.3 mg/dL JARED Comment:Testing performed by : [address] [address] Blood 05/21/2024 3:03 PM OIL DRILLER 05/21/2024 3:05 PM OIL DRILLER us Jenise Joyce NP LAB BLOOD ORDERABLES Final Re sult [facility] [address] [facility] Department [place] [address] * CT Body Outside Reference (05/20/2024 12:00 AM OIL DRILLER) Narrative JENELLE_NADYA_KRISTOFER_MHE - 05/21/2024 4:53 PM OIL DRILLER This order has been auto-finalized and does not contain a result. us Provider Transcribed Order IMG CT PROCEDURES Fin al Result RAD_CLARIO_MHB_MHE from Last 3 Months Insurance [employer] SENIOR SUPPLEMENT MEDICARE [employer] MEDICARE [place] [address] [facility] MEDICARE ADVANTAGE Advance Directives For more information, please contact: [phone] * Full Code (Latest Code Status on File) Date Activated Date Inactivated Comments 05/21/2024 3:27 PM 05/25/2024 7:46 PM Care Teams Qa Specialist Relationship Specialty Start Date End Date Johnie Ordaz MD PCP - General Internal Medicine 08/23/20
--- OUTSIDE RECORDS SUMMARY | 2024-08-13 17:41 | XMS_ITS | Data Portability ---
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 Offered her home ambulatory blood pressure monitoring through our program and she declined [email or web address] Not available 04/08/2024 14:36:02 06/23/2024 06/23/2024 I will see her back 2 months we will continue current therapy refill the amlodipine 5 mg daily significance of her findings discussed see me in 2 months hospital records reviewed [email or web address] Not available 06/24/2024 21:05:01 Plan of Treatment Reminders Order Date Submit Date Provider Last Modified By Organization Details Last Modified Time Details Appointments ANY 15 2024 10:00A Pilar Ordaz MD Not available Not available Not available Lab HbA1c (hemoglob in A1c), blood 2023 024 [place] [facility] [address], [place], [address], 01/26/2024 06:20:12 lipid panel, serum 2023 024 [facility], [address], [place], [address], 01/26/2024 06:20:11 CBC w/ auto diff 2023 024 [facility], [address], [place], [address], 01/26/2024 06:20:13 CMP, serum or plasma 2023 024 [facility], [address], [place], [address], 01/26/2024 06:20:12 Referral podiatris t referral 2023 024 cruz Hernandez DPM, [address], [address], [place], [address], 07/28/2024 16:26:06 diabetic ophthalmo logy referral 2023 024 [employer], [address] [place], [place] [address], [place], [address], 11/15/2023 09:44:53 Procedures None recorded. Surgeries None recorded. Imaging None recorded. Medication Orders amlodipin e 5 mg tablet 2024 025 [facility], [address] [place] [address], [place], [address], 06/23/2024 12:47:57 Patient TargetsNo targets recorded. Patient Instructions Encounter Date Encounter Id Patient Instructions Last Modified By Organization Details Last Modified Time 10/26/2023 [id number] A healthy lifestyle: care instructions [email or web address] Not available 10/26/2023 13:25:15 01/25/2024 [id number] A healthy lifestyle: care instructions [email or web address] Not available 01/25/2024 11:21:41 06/23/2024 [id number] A healthy lifestyle: care instructions [email or web address] Not available 06/23/2024 12:47:57 Reason for Referral Diabetic Ophthalmology Refer ral for Type 2 diabetes mellitus Referring Physician: Noel Ordaz, Internal Medicine, Encounter Date: 10/26/2023 Ecologist Technician Referral for Type 2 diabetes mellitus Referring Physician: Noel Ordaz, Internal Medicine, Encounter Date: 03/03/2024 Results Created Date Observation Date Name Description Value Unit Range Abnormal Flag Note LastModifiedBy Organization Detail LastModifiedTime 01/25/2001/26/2024 LIPID PANEL cholesterol, total 176 mg/dL 100-19 9 Not Available [facility] ([facility]) [address] [facility] [address], [place], [address], 01/26/2024 06:20:11 01/25/20 24 01/26/2024 LIPID PANEL triglyceride s 91 mg/dL 0-149 Not Available [facility] ([facility]) [address] [facility] [address], [place], [address], 01/26/2024 06:20:11 01/25/20 24 01/26/2024 LIPID PANEL HDL cholesterol 45 mg/dL >39 Not Available [facility] ([facility]) [address] [place], [address], 01/26/2024 06:20:11 01/25/20 24 01/26/2024 LIPID PANEL VLDL cholesterol patricia 17 mg/dL 5-40 Not Available [facility] ([facility]) [address] [place], [address], 01/26/2024 06:20:11 01/25/20 24 01/26/2024 LIPID PANEL LDL chol calc ([facility]) 114 mg/dL 0-99 above high normal Not Available [facility] ([facility]) [address] [place], [address], 01/26/2024 06:20:11 01/25/20 24 01/26/2024 COMP. METAB OLIC PANEL (14) glucose 134 mg/dL 70-99 above high normal Not Available [facility] ([facility]) [address] [place], [address], 01/26/2024 06:20:12 01/25/20 24 01/26/2024 COMP. METAB OLIC PANEL (14) BUN 12 mg/dL 8-27 Not Available [facility] ([facility]) [address] [place], [address], 01/26/2024 06:20:12 01/25/20 24 01/26/2024 COMP. METAB OLIC PANEL (14) creatinine 0.96 mg/dL 0.57-1 .00 Not Available [facility] ([facility]) [address] [place], [address], 01/26/2024 06:20:12 01/25/20 24 01/26/2024 COMP. METAB OLIC PANEL (14) eGFR 62 mL/mi n/1.7 3 >59 Not Available [facility] ([facility]) [address], [place], [address], 01/26/2024 06:20:12 01/25/20 24 01/26/2024 COMP. METAB OLIC PANEL (14) BUN/creatini ne ratio 13 12-28 Not Available [facility] ([facility]) [address], [place], [address], 01/26/2024 06:20:12 01/25/20 24 01/26/2024 COMP. METAB OLIC PANEL (14) sodium 139 mmol/ L 134-14 4 Not Available [facility] ([facility]) [address], [place], [address], 01/26/2024 06:20:12 01/25/20 24 01/26/2024 COMP. METAB OLIC PANEL (14) potassium 4.7 mmol/ L 3.5-5. 2 Not Available [facility] ([facility]) [address], [place], [address], 01/26/2024 06:20:12 01/25/20 24 01/26/2024 COMP. METAB OLIC PANEL (14) chloride 102 mmol/ L 96-106 Not Available [facility] ([facility]) [address] [facility] [address], [place], [address], 01/26/2024 06:20:12 01/25/20 24 01/26/2024 COMP. METAB OLIC PANEL (14) carbon dioxide, total 22 mmol/ L 20-29 Not Available [facility] ([facility]) [address] [facility] [address], [place], [address], 01/26/2024 06:20:12 01/25/20 24 01/26/2024 COMP. METAB OLIC PANEL (14) calcium 10.5 mg/dL 8.7-10 .3 above high normal Not Available [facility] ([facility]) [address] [facility] [place], [address], 01/26/2024 06:20:12 01/25/20 24 01/26/2024 COMP. METAB OLIC PANEL (14) protein, total 7.0 g/dL 6.0-8. 5 Not Available [facility] ([facility]) [address] [place], [address], 01/26/2024 06:20:12 01/25/20 24 01/26/2024 COMP. METAB OLIC PANEL (14) albumin 4.1 g/dL 3.8-4. 8 Not Available [facility] ([facility]) [address] [place], [address], 01/26/2024 06:20:12 01/25/20 24 01/26/2024 COMP. METAB OLIC PANEL (14) globulin, total 2.9 g/dL 1.5-4. 5 Not Available [facility] ([facility]) [address] [place], [address], 01/26/2024 06:20:12 01/25/20 24 01/26/2024 COMP. METAB OLIC PANEL (14) bilirubin, total 0.9 mg/dL 0.0-1. 2 Not Available [facility] ([facility]) [address] [place], [address], 01/26/2024 06:20:12 01/25/20 24 01/26/2024 COMP. METAB OLIC PANEL (14) alkaline phosphatase 130 IU/L 44-121 above high normal Not Available [facility] ([facility]) [address] [place], [address], 01/26/2024 06:20:12 01/25/20 24 01/26/2024 COMP. METAB OLIC PANEL (14) AST (SGOT) 13 IU/L 0-40 Not Available [facility] ([facility]) [address] [place], [address], 01/26/2024 06:20:12 01/25/20 24 01/26/2024 COMP. METAB OLIC PANEL (14) ALT (SGPT) 9 IU/L 0-32 Not Available [facility] ([facility]) [address] [facility] [address], [place], [address], 01/26/2024 06:20:12 01/25/20 24 01/25/2024 HEMOG LOBIN A1C hemoglobin A1C 6.3 % 4.8-5. 6 above high normal Predi abete s: 5.7 - 6.4 Diabe valentino: >6.4 Glyce josé miguel contr ol for adult s with diabe valentino: <7.0 Not Available [facility] ([facility]) [address] [place], [address], 01/26/2024 06:20:12 01/25/20 24 01/25/2024 CBC WITH DIFFE RENTI AL/PL ATELE T WBC 7.9 x10e3 /uL 3.4-10 .8 Not Available [facility] ([facility]) [address] [place], [address], 01/26/2024 06:20:13 01/25/20 24 01/25/2024 CBC WITH DIFFE RENTI AL/PL ATELE T RBC 5.51 x10e6 /uL 3.77-5 .28 above high normal Not Available [facility] ([facility]) [address] [place], [address], 01/26/2024 06:20:13 01/25/20 24 01/25/2024 CBC WITH DIFFE RENTI AL/PL ATELE T hemoglobin 13.6 g/dL 11.1-1 5.9 Not Available [facility] ([facility]) [address] [place], [address], 01/26/2024 06:20:13 01/25/20 24 01/25/2024 CBC WITH DIFFE RENTI AL/PL ATELE T hematocrit 44.5 % 34.0-4 6.6 Not Available [facility] ([facility]) [address] [facility], [place], [address], 01/26/2024 06:20:13 01/25/20 24 01/25/2024 CBC WITH DIFFE RENTI AL/PL ATELE T MCV 81 fL 79-97 Not Available [facility] ([facility]) [address] [facility] [address], [place], [address], 01/26/2024 06:20:13 01/25/20 24 01/25/2024 CBC WITH DIFFE RENTI AL/PL ATELE T MCH 24.7 pg 26.6-3 3.0 below low normal Not Available [facility] ([facility]) [address] [facility], [place], [address], 01/26/2024 06:20:13 01/25/20 24 01/25/2024 CBC WITH DIFFE RENTI AL/PL ATELE T MCHC 30.6 g/dL 31.5-3 5.7 below low normal Not Available [facility] ([facility]) [address] [facility], [place], [address], 01/26/2024 06:20:13 01/25/20 24 01/25/2024 CBC WITH DIFFE RENTI AL/PL ATELE T RDW 14.6 % 11.7-1 5.4 Not Available [facility] ([facility]) [address] [facility], [place], [address], 01/26/2024 06:20:13 01/25/2001/25/2024 CBC WITH DIFFE RENTI AL/PL ATELE T platelets 370 x10e3 /uL 150-45 0 Not Available [facility] ([facility]) [address] [facility] [address], [place], [address], 01/26/2024 06:20:13 01/25/20 24 01/25/2024 CBC WITH DIFFE RENTI AL/PL ATELE T neutrophils 69 % notest ab. Not Available [facility] ([facility]) [address] [facility] [address], [place], [address], 01/26/2024 06:20:13 01/25/2001/25/2024 CBC WITH DIFFE RENTI AL/PL ATELE T lymphs 17 % notest ab. Not Available [facility] ([facility]) [address] [facility] [address], [place], [address], 01/26/2024 06:20:13 01/25/20 24 01/25/2024 CBC WITH DIFFE RENTI AL/PL ATELE T monocytes 9 % notest ab. Not Available [facility] ([facility]) [address] [facility] [address], [place], [address], 01/26/2024 06:20:13 01/25/20 24 01/25/2024 CBC WITH DIFFE RENTI AL/PL ATELE T eos 3 % notest ab. Not Available [facility] ([facility]) [address] [facility], [place], [address], 01/26/2024 06:20:13 01/25/2001/25/2024 CBC WITH DIFFE RENTI AL/PL ATELE T basos 2 % notest ab. Not Available [facility] ([facility]) [address] [place], [address], 01/26/2024 06:20:13 01/25/2001/25/2024 CBC WITH DIFFE RENTI AL/PL ATELE T neutrophils (absolute) 5.5 x10e3 /uL 1.4-7. 0 Not Available [facility] ([facility]) [address] [place], [address], 01/26/2024 06:20:13 01/25/20 24 01/25/2024 CBC WITH DIFFE RENTI AL/PL ATELE T lymphs (absolute) 1.3 x10e3 /uL 0.7-3. 1 Not Available [facility] ([facility]) [address] [place], [address], 01/26/2024 06:20:13 01/25/20 24 01/25/2024 CBC WITH DIFFE RENTI AL/PL ATELE T monocytes(ab solute) 0.7 x10e3 /uL 0.1-0. 9 Not Available [facility] ([facility]) [address] [facility] [address], [place], [address], 01/26/2024 06:20:13 01/25/20 24 01/25/2024 CBC WITH DIFFE RENTI AL/PL ATELE T eos (absolute) 0.3 x10e3 /uL 0.0-0. 4 Not Available [facility] ([facility]) [address] [facility] [address], [place], [address], 01/26/2024 06:20:13 01/25/20 24 01/25/2024 CBC WITH DIFFE RENTI AL/PL ATELE T baso (absolute) 0.1 x10e3 /uL 0.0-0. 2 Not Available [facility] ([facility]) [address] [facility] [address], [place], [address], 01/26/2024 06:20:13 01/25/20 24 01/25/2024 CBC WITH DIFFE RENTI AL/PL ATELE T immature granulocytes 0 % notest ab. Not Available [facility] ([facility]) [address] [facility], [place], [address], 01/26/2024 06:20:13 01/25/20 24 01/25/2024 CBC WITH DIFFE RENTI AL/PL ATELE T immature grans (abs) 0.0 x10e3 /uL 0.0-0. 1 Not Available [facility] ([facility]) [address] [facility], [place], [address], 01/26/2024 06:20:13 10/15/19 24 10/15/2023 XR, chest No observ ation record ed. [facility] [address] [place], [address], 10/19/2023 17:59:20 10/25/19 24 07/16/2021 colon oscop y proce dure (PROC ) No observ ation record ed. [email or web address] Not Available 2023 15:46:07 01/02/20 24 01/02/2024 XR, wrist , 3 or more view No observ ation record ed. [facility] [address] [place], [address], 01/10/2024 18:16:17 01/02/20 24 01/02/2024 XR, shoul rosemary No observ ation record ed. [facility] [address] [place], [address], 01/10/2024 18:16:46 05/20/19 25 05/20/2024 CT, head + brain , w/o contr ast No observ ation record ed. [facility] [address] [place], [address], 05/24/2024 09:07:44 05/20/19 25 05/20/2024 XR, chest , 1 view No observ ation record ed. [facility] [address] [place], [address], 05/24/2024 09:07:56 05/20/19 25 05/20/2024 CT, angio gram, head + neck, w/wo contr ast No observ ation record ed. [facility] [address] [place], [address], 05/24/2024 09:08:50 05/20/19 25 05/20/2024 CT, angio gram, head, w/wo contr ast No observ ation record ed. [facility] [address] [place], [address], 05/24/2024 09:09:18 04/01/20 2508/09/2024 CT, chest , w/o contr ast No observ ation record ed. [facility] [address], [place], [address], 08/11/2024 12:15:48 08/10/1908/09/2024 CT, chest , w/o contr ast No observ ation record ed. [facility] [address], [place], [address], 08/11/2024 09:48:11 Result Notes None recorded. Problems Name Problem SNOMED Code Status Onset Date Resolution Date Notes Provider Name and Address Organization Details Recorded Time Nodular goiter 868764984 Active 2023 [facility] 2022 right follicle neg Noel Ordaz MD Attn: Marielena fernandez,[address] [facility], [place], [address], [place] [facility] 4 21:21:06 History of cerebrova scular accident 406491320 Active 2023 Noel Ordaz MD Attn: Marielena fernandez,[address] [facility], [place], [address], [place] [facility] 4 21:21:20 Dyslipide benson 377019212 Active 2023 Noel Ordaz MD Attn: Marielena fernandez,[address] [facility], [place], [address], [place] [facility] 4 21:21:32 Nodule of lung 010711153 Active 2023 rescan 12/2023 oNel Ordaz MD Attn: Marielena fernandez,[address] [facility], [place], [address], [place] [facility] 4 21:24:01 Type 2 diabetes mellitus 26765082 Active 2023 Hermes Nichols [place] null, [place] [facility] 4 11:09:11 Visual disturban ce 51066881 Active 2023 Hermes Nichols [place], [place] [facility] 4 11:09:12 Constipat ion 00086339 Active 2023 Noel Ordaz MD Attn: Marielena fernandez,[address] [facility], [place], [address], [place] [facility] 4 20:12:28 Rectal hemorrhag e 45603790 Active 2023 Noel Ordaz MD Attn: Marielena fernandez,[address] [facility], [place], [address], [place] [facility] 4 20:12:33 Closed fracture of proximal left humerus 822916659195 Active 2023 Greta Rocha null, [place] [facility] 5 11:56:49 Fracture of distal end of left radius Active 2023 Greta Rocha [place] [facility] 5 11:57:29 Chronic obstructi ve pulmonary disease 44752828 Active 2024 Imani Ge [place], [place] [facility] 5 14:50:17 Diabetes mellitus 87864560 Active Kemi Oconnor RN [place], [place] [facility] 6 13:35:10 Essential hypertens ion 10530752 Active Ivan Schaefer MD Attn: Marielena fernandez,[address] [facility], [place], [address], [place] - [facility] 6 11:41:12 Problem Notes None recorded. Procedures Surgical History Date Name Laterality Status Provider Name and Address Organization Details Recorded Time 05/03/19 15 Diagnostic colonoscopy completed ALIREZA Barillas [facility] 06/28/2015 14:33:09 Dilation and Curettage completed ALIREZA Barillas [facility] 06/28/2015 14:33:09 Caesarean Section completed ALIREZA Barillas [facility] 06/28/2015 14:33:09 Mammogram screening completed ALIREZA Barillas [facility] 06/28/2015 14:33:09 Back Surgery completed ALIREZA Barillas [facility] 06/28/2015 14:33:09 Tonsillectomy completed ALIREZA Barillas [facility] 06/28/2015 14:33:09 Cholecystectomy [facility] 06/28/2015 14:33:09 Anesth nose/sinus surgery completed ALIREZA Barillas - [facility] 06/28/2015 14:33:09 Tubal Ligation completed ALIREZA Barillas - [facility] 06/28/2015 14:33:09 Imaging Results Imaging Date Name Status LastModified by [facility] Details LastModified Time 10/15/2023 XR, chest completed [facility] [address] [place], [address], 10/19/2023 17:59:20 07/16/2021 colonoscopy procedure (PROC) completed [facility] Information not available 10/25/2023 15:46:07 01/02/2024 XR, wrist, 3 or more view completed [facility] [address] [place], [address], 01/10/2024 18:16:17 01/02/2024 XR, shoulder completed [facility] [address] [place], [address], 01/10/2024 18:16:46 05/20/2024 CT, head + brain, w/o contrast completed [facility] [address] [place], [address], 05/24/2024 09:07:44 05/20/2024 XR, chest, 1 view completed [facility] [address] [place], [address], 05/24/2024 09:07:56 05/20/2024 CT, angiogram, head + neck, w/wo contrast completed [facility] [address] [place], [address], 05/24/2024 09:08:50 05/20/2024 CT, angiogram, head, w/wo contrast completed [facility] [address] [place], [address], 05/24/2024 09:09:18 08/09/2024 CT, chest, w/o contrast completed [facility] [address], [place], [address], 08/11/2024 12:15:48 08/09/2024 CT, chest, w/o contrast active [facility] [address], [place], [address], 08/11/2024 09:48:11 Procedure Notes None recorded. Medical Equipment None [...] Updated DateTime 4 167.64 cm 28.6 kg/m2 39064.6 5 g 76 /min 97.8 [degF] 97 % 97 % 122 mm[Hg] 70 mm[Hg] Estelita Gilbert [place] - [facility] 4 10:37:14 Date Recorded Body height Body mass index (BMI) Body weight Heart rate Oxygen saturation Oxygen saturation in Arterial blood by Pulse oximetry Systolic blood pressure Diastolic blood pressure Provider Name and Address Organization Details Last Updated DateTime 4 167.64 cm 27.6 kg/m2 46768.3 g 86 /min 98 % 98 % 130 mm[Hg] 90 mm[Hg] Claritza Ortiz MA [facility] 4 10:40:56 Date Recorded Body height Body mass index (BMI) Body weight Heart rate Oxygen saturation Oxygen saturation in Arterial blood by Pulse oximetry Systolic blood pressure Diastolic blood pressure Provider Name and Address Organization Details Last Updated DateTime 4 167.64 cm 27.8 kg/m2 15223.3 2 g 68 /min 97 % 97 % 132 mm[Hg] 70 mm[Hg] Imani Ge MA [facility] 4 11:57:10 Date Recorded Body height Body mass index (BMI) Body weight Heart rate Oxygen saturation Oxygen saturation in Arterial blood by Pulse oximetry Systolic blood pressure Diastolic blood pressure Provider Name and Address Organization Details Last Updated DateTime 4 167.64 cm 27.5 kg/m2 03227.8 6 g 71 /min 98 % 98 % 160 mm[Hg] 80 mm[Hg] Jcarlos Quintana MA [facility] 4 11:56:36 Date Recorded Body height Body mass index (BMI) Body weight Heart rate Oxygen saturation Oxygen saturation in Arterial blood by Pulse oximetry Systolic blood pressure Diastolic blood pressure Provider Name and Address Organization Details Last Updated DateTime 5 167.64 cm 27.2 kg/m2 79767.6 7 g 65 /min 98 % 98 % 142 mm[Hg] 60 mm[Hg] Claritza Ortiz MA [facility] 5 09:57:47 Social History Question Answer Notes LastModified by Organizat ion Details LastModified Time Tobacco Smoking Status Former Smoker quit 2000 cigarettes [facility] 10/26/2023 10:38:42 Do You Have An Advance [...] available 06/28 14:33:10 Sister Neoplasm of lung [email or web address] Not available 2023 21:19:32 Medical History Condition Response Coronary Artery Disease N Other N Atrial Fibrillation N High Blood Pressure Y Depression N COPD N Blood Clots N Anxiety Disorder N Muscle, Joint, or Bone Problems N Acid Reflux (GERD) N Cancer N Stroke N High Cholesterol Y Liver Disease N Headaches N Kidney or Bladder Problems N Thyroid Problems N GI Problems N Skin Problems N Anemia N Heart Attack (AK) N Diabetes Y Seizures/Epilepsy N Asthma N Allergies N Hepatitis N Heart Failure N Osteoporosis N Gynecological HistoryNo gynecological history recorded. Obstetrics History GPAL:G 0 P 0 0 0 0 Immunizations Vaccine Type Date Status Note Provider Nam e and Address Organization Details Recorded Time zoster recombinant 0 completed Veda Richards [place], [place] [facility] 10/25/2023 15:46:52 Influenza, high-dose, quadrivalent, PF 0 completed V[place] [facility] 10/25/2023 15:46:52 pneumococcal polysaccharide PPV23 0 completed Veda [place] [facility] 10/25/2023 15:46:52 Tdap 9 completed Veda [place] [facility] 10/25/2023 15:46:52 Pneumococcal conjugate PCV 13 7 completed V[place] [facility] 10/25/2023 15:46:52 pneumococcal, unspecified formulation 4 completed V[place] [facility] 10/25/2023 15:46:52 Influenza, high-dose, trivalent, PF 7 completed V[place] [facility] 10/25/2023 15:46:52 Influenza, high-dose, trivalent, PF 8 completed [place] [facility] 10/25/2023 15:46:52 Influenza, high-dose, trivalent, PF 9 completed Veda [place] [facility] 10/25/2023 15:46:52 Influenza, high-dose, trivalent, PF 7 completed Veda nick, [place] - [facility] 10/25/2023 15:46:52 Influenza, split virus, trivalent, preservative 3 completed Veda nick, [place] [facility] 10/25/2023 15:46:52 Past Encounters Encounter ID Performer Location Encounter Start Date Encounter Closed Date Diagnosis/Indication Diagnosis SNOMED-CT Code Diagnosis ICD10 Code Diagnosis Note [id number] [facility] [address] [place] [phone] 06/28/2015 13:06:05 06/28/2015 14:52:20 Diabetes mellitus 81007129 E13.65 Essential hypertension 43701434 I10 [id number] Noel Ordaz MD [facility] (Adult Med) [address] [place] [id number] 06/29/2023 09:50:25 06/29/2023 11:23:25 Essential hypertension 11608091 I10 Pain in right foot 44763 44739 41921 M79.671 Type 2 venkatesh betes mellitus 04365880 E11.9 Dyslipidemia 171554567 E 78.5 History of cerebrovascular accident 539845183 Z86.73 Nodular goiter 524114576 E04.9 Diabetes mellitus 680182 09 E11.9 Nodule of lung 750619587 R91.1 [id number] MD Shameka Santos (Adult Med) [address] [place] [id number] 10/26/2023 10:18:13 10/26/2023 11:19:48 Type 2 diabetes mellitus 02044143 E11.9 Visual disturbance 14056 001 H53.9 Overweight 248816166 E66 .3 Dyslipidemia 445684751 E 78.5 Essential hypertension 27016360 I10 Dysfunctio n of bilateral eustachian tubes 8132275101 813773 H69.93 [id number] MD Shameka Santos (Adult Med) [address] [place] [phone] 01/25/2024 10:19:16 01/25/2024 11:25:27 Overweight 785751591 E66.3 Rectal hemorrhage 893308 02 K62.5 Essential hypertension 52913334 I10 Diabetes mellitus 805890 09 E11.9 Constipation 00604291 K5 9.00 [id number] MD Shameka Santos (Adult Med) [address] [place] [id number] 03/03/2024 11:13:16 03/03/2024 12:51:34 Type 2 diabetes mellitus 66746937 E11.9 Essential hypertension 98503428 I10 [id number] MD Shameka Santos (Adult Med) [address] [place] [id number] 04/07/2024 10:47:52 04/07/2024 12:46:34 Dyslipidemia 209625740 E78.5 Type 2 venkatesh betes mellitus 84730651 E11.9 Essential hypertension 25594232 I10 [id number] MD Shameka Santos (Adult Med) [address] [place] [id number] 06/23/2024 09:47:32 06/23/2024 10:48:20 Body mass index 25-29 - overweight 778969156 Z68.27 Overweight 812977835 E66 .3 Essential hypertension [id number] I10 Ischemic stroke [id number] I63.9 Health Concerns Section Related Observation LastModified by Organization Detai ls LastModified Time None Recorded Concern Status LastModified by Organization Details LastModified Time None Recorded Advance Directives Directive N: Payers Encounter Date Sequence Insurance Name Policy Number Policy Soto Covered Member ID Soto Member ID Guarantor Name 10/26/2023 1 [facility] (MEDICARE REPLACEMENT/A DVANTAGE - HMO) [id number] Pinky Weeks [id number] Pinky Weeks 01/25/2024 1 [facility] (MEDICARE REPLACEMENT/A DVANTAGE - HMO) [id number] Pinky Weeks [id number] Pinky Weeks 03/03/2024 1 [facility] (MEDICARE REPLACEMENT/A DVANTAGE - HMO) [id number] Pinky Weeks [id number] Pinky Weeks 04/07/2024 1 [facility] (MEDICARE REPLACEMENT/A DVANTAGE - HMO) [id number] Pinky Weeks [id number] Pinky Weeks 06/23/2024 1 [facility] (MEDICARE REPLACEMENT/A DVANTAGE - HMO) [id number] Pinky Yao [id number] Pinky Yao Notes Date Note Type Note Provider Name and Address Organization Details Recorded Time 10/26/2023 text/html she was at [facility] and she had some problems with her eyes watering in runny nose hearing a little muffledblood sugars have been up a little bit having trouble losing weight could do better with regards to intake of fat hypertension blood pressure stable Noel Ordaz MD Attn: Accounting, [address] [place], [address], [facility] 11/07/2023 20:11:37 01/25/2024 text/html hypertension no headache [...] well. Noel Ordaz MD Attn: Accounting, [address] [place], [address], [facility] 02/20/2024 20:14:55 03/03/2024 text/html no blood in stoo l. Short interval follow up of blood pressure and she has been asymptomatic with regards to the Noel Ordaz MD Attn: Accounting, [address] [place], [address], [facility] 03/04/2024 16:49:53 04/07/2024 text/html blood pressure i [...] 6.3 Noel Ordaz MD Attn: Accounting, [address] [place], [address], [facility] 04/08/2024 14:36:20 06/23/2024 text/html left basal gangl [...] stress Noel Ordaz MD Attn: Accounting[address] [place], [address], [facility] 06/24/2024 21:06:03 OBGyn Episode No OBEpisode recorded.
--- NOTE | 2024-08-13 17:51 | ECG_ITS ---
Test Date: 2024-08-13 18:35:24 Measurements Intervals [place] Rate: 79 P: 34 ID: 192 QRS: 16 QRSD: 100 T: 45 QT: 372 QTc: 427 Interpretive Statements SINUS RHYTHM CONSIDER INFERIOR INFARCT, AGE INDETERMINATE ANTERIOR INFARCT, AGE INDETERMINATE BORDERLINE ST ABNORMALITY- HIGH LATERAL LEADS ABNORMAL ECG No previous ECG available for comparison Electronically Signed On 08-13-2024 20:35:43 CDT by Joel Nance D.O.
--- NOTE | 2024-08-13 18:07 | ED_ITS ---
HPI - General Adult General Chief complaint: Syncope Stated complaint: Feeling faint, weakness Time Seen by Provider: 08/13/24 17:52 Source: patient Mode of arrival: ambulatory Limitations: no limitations History of Present Illness HPI narrative: 73 years old white female was sitting on the toilet, straining, started having hot feeling, diaphoretic, felt like drunk, could not focus, closed her eyes which probably make her feel a little better, went outside, sat on a chair, felt sick and nauseated. The above symptoms lasted for 30 minutes and gradually is getting better. 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 Patient currently on Plavix. History of diabetes hypertension hyperlipidemia CVA. Patient does not smoke or drink or use drugs. Patient report slight weakness on the right side of her body and chronic numbness of the right upper extremity. Related Data Allergies Allergy/AdvReac Type Severity Reaction Status Date / Time No Known Allergies Allergy Verified 08/13/24 17:39 Review of Systems 2 Review of Systems: All systems reviewed & are unremarkable except as noted in HPI and below Exam 2 Narrative: General appearance: Well-developed, well-nourished Skin: Normal color Head: Normocephalic, nontraumatic Eyes: Clear conjunctiva ENT: Oropharynx normal, ears normal, nose normal Neck: Supple, nontender Chest and respiratory: Airway patent, no respiratory distress, no accessory muscle use Heart: Regular rate/rhythm Abdomen: Soft, nontender, no organomegaly, quiet bowel sounds Vascular: Normal peripheral pulses, normal capillary refill. 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, no gross motor deficit Course Consultations Consultation #1: DR Dyer Admit to hospitalist Date: 08/13/24 Vital Signs Vital signs: Vital Signs Temperature 36.3 C L 08/13/24 17:41 Pulse Rate 84 08/13/24 17:41 Respiratory Rate 16 08/13/24 17:41 Blood Pressure 115/70 08/13/24 17:41 Pulse Oximetry 98 08/13/24 17:41 Temperature 36.3 C L 08/13/24 17:41 Pulse Rate 88 08/13/24 18:16 Respiratory Rate 16 08/13/24 17:41 Blood Pressure 127/70 08/13/24 18:16 Pulse Oximetry 98 08/13/24 17:41 Medical Decision Making [facility] Narrative Medical decision making narrative: Patient presents with vasovagal like symptoms History of CVA May 2024 Vital signs are stable Physical examination showing that the patient improved back to her normal baseline and currently is asymptomatic Blood work today, CMP, troponin which showed WBC 13.1, hemoglobin 11.9, and creatinine 1.1 year, otherwise insignificant Chest x-ray showed no acute abnormality CT head without contrast showed possible focal left thalamic infarct of indeterminate age, consider MRI of the brain for further evaluation. Which could be high likely secondary to the CVA May 2024. We have no access to patient old records at [facility]. Patient will be admitted for further evaluation including carotid Doppler and MRI of the brain. Admit to hospitalist Diagnosis nursing, near-syncope, vasovagal, TIA, CVA Vital Signs Vital Signs: Vital Signs Temperature 36.3 C L 08/13/24 17:41 Pulse Rate 84 08/13/24 17:41 Respiratory Rate 16 08/13/24 17:41 Blood Pressure 115/70 08/13/24 17:41 Pulse Oximetry 98 08/13/24 17:41 Temperature 36.3 C L 08/13/24 17:41 Pulse Rate 88 08/13/24 18:16 Respiratory Rate 16 08/13/24 17:41 Blood Pressure 127/70 08/13/24 18:16 Pulse Oximetry 98 08/13/24 17:41 Lab Data 08/13/24 18:09 08/13/24 18:09 Labs: Lab Results 08/13/24 Range/Units 18:09 WBC 13.1 H (4.5-10.0) K/mm3 RBC 4.73 (4.2-5.4) M/mm3 Hgb 11.9 L (12.0-15.0) g/dL Hct 38.4 (37.0-47.0) % MCV 81.2 (80-100) fl MCH 25.2 L (26-34) pg MCHC 31.0 L (32-36) g/dl RDW 15.0 H (11.5-14.5) % Plt Count 302 (150-375) k/mm3 MPV 9.1 (7.4-10.4) fl Immature Gran % (Auto) 0.5 (0-0.5) % Neut % (Auto) 85.7 H (45.5-73.1) % Lymph % (Auto) 6.0 L (18.3-44.2) % [place] % (Auto) 6.4 (2.6-8.5) % Eos % (Auto) 0.7 (0-4.4) % Baso % (Auto) 0.7 (0.2-1.2) % Lymph # (Auto) 0.79 L (0.9-3.2) K/mm3 [place] # (Auto) 0.8 H (0.1-0.6) K/mm3 Eos # (Auto) 0.1 (0-0.3) K/mm3 Baso # (Auto) 0.1 (0.0-0.1) K/mm3 Abs Immat Gran (auto) 0.06 H (0.00-0.031) K/mm3 Absolute Neuts (auto) 11.2 H (1.3-6.7) K/mm3 Absolute Nucleated RBC 0.000 (0.0-0.012) K/mm3 Nucleated RBC % 0.0 (0.0-0.2) % Sodium 136 L (137-145) mmol/L Potassium 4.2 (3.4-5.0) mmol/L Chloride 105 (98-107) mmol/L Carbon Dioxide 21 L (22-30) mmol/L Anion Gap 10 (4-12) mmol/L BUN 13 (7-17) mg/dL Creatinine 1.17 H (0.7-1.0) mg/dL Estim Creat Clear Calc 34 ml/min Estimated GFR 45 L (59 - ) Glucose 211 H (65-110) mg/dL Calcium 9.7 (8.4-10.2) mg/dL Total Bilirubin 0.8 (0.2-1.3) mg/dL AST 30 (14-36) U/L ALT 19 (6-35) U/L Alkaline Phosphatase 86 (38-126) U/L Troponin I < 0.012 (0.000-0.034) ng/mL Total Protein 7.0 (6.3-8.2) g/dL Albumin 4.2 (3.5-5.1) g/dL Imaging Data Radiologist's impression: Impressions Head CT 08/13/24 18:51 IMPRESSION: Possible focal left thalamic infarct of indeterminate age, consider MR of the brain for further evaluation. Otherwise, no acute intracranial process. Chest X-Ray 08/13/24 18:57 IMPRESSION: Mild interstitial edema versus chronic interstitial change. ECG Data EKG #1: Attestation: I personally reviewed and interpreted this ECG as follows: ECG completion date: 08/13/24 Interpretation: Normal sinus rhythm at 79 beats per minute, poor R-wave progression, possible anterior myocardial infarction of indeterminate age, no previous EKG available for comparison Discharge Plan Discharge Clinical Impression: Near syncope, Brain TIA Patient Disposition: Still a Patient Condition: Improved Patient Language: Austrian Follow-up/Referrals: Orlin,MD Johnie [Primary Care Provider] - Quality Stroke Scale Stroke Scale 1: Stroke scale date:: 08/13/24 1a Level of consciousness: alert-0 1b Level of consciousness questions: answers both correctly-0 1c Level of consciousness commands: obeys both correctly-0 2 Best gaze: normal-0 3 Visual: no visual loss-0 4 Facial palsy: normal-0 5a Motor: left arm: no drift-0 5b Motor: right arm: no drift-0 6a Motor: left leg: no drift-0 6b Motor: right leg: no drift-0 7 Limb ataxia: present in one limb-1 8 Sensory: pinprick less sharp-1 9 Best language: no aphasia-0 10 Dysarthria: normal-0 11 Extinction and inattention: no abnormality-0 Level:: 2
[2024-08-13 18:17] LABS: Basophils Absolute Auto 0.1 K/mm3 (0.0-0.1); Basophils Percent Auto 0.7 % (0.2-1.2); Eosinophils Absolute Auto 0.1 K/mm3 (0-0.3); Eosinophils Percent Auto 0.7 % (0-4.4); Hematocrit 38.4 % (37.0-47.0); Hemoglobin 11.9 g/dL (12.0-15.0); Immature Granulocyte Absolute 0.06 K/mm3 (0.00-0.031); Immature Granulocyte Percent A 0.5 % (0-0.5); Lymphocytes Absolute Auto 0.79 K/mm3 (0.9-3.2); Mean Corpuscular Hemoglobin 25.2 pg (26-34); Mean Corpuscular Volume 81.2 fl (80-100); Mean Platelet Volume 9.1 fl (7.4-10.4); Monocytes Absolute Auto 0.8 K/mm3 (0.1-0.6); Monocytes Percent Auto 6.4 % (2.6-8.5); Neutrophils Absolute Auto 11.2 K/mm3 (1.3-6.7); Neutrophils Percent Auto 85.7 % (45.5-73.1); Platelet Count Result 302 k/mm3 (150-375); Red Blood Count 4.73 M/mm3 (4.2-5.4); White Blood Count 13.1 K/mm3 (4.5-10.0)
[2024-08-13 18:27] LABS: Alanine Aminotransferase 19 U/L (6-35); Albumin Level 4.2 g/dL (3.5-5.1); Alkaline Phosphatase 86 U/L (38-126); Anion Gap 10 mmol/L (4-12); Aspartate Amino Transferase 30 U/L (14-36); Bilirubin,Total 0.8 mg/dL (0.2-1.3); Blood Urea Nitrogen 13 mg/dL (7-17); Calcium 9.7 mg/dL (8.4-10.2); Carbon Dioxide 21 mmol/L (22-30); Chloride 105 mmol/L (98-107); Estimated CRCL calculation 34 ml/min; Estimated Glomerular Filt Rate 45; Glucose 211 mg/dL (65-110); Potassium 4.2 mmol/L (3.4-5.0); Sodium 136 mmol/L (137-145)
[2024-08-13 18:39] LABS: Troponin I < 0.012 ng/mL (0.000-0.034)
--- OUTSIDE RECORDS SUMMARY | 2024-08-13 19:11 | XMS_ITS | CONTINUITY OF CARE DOCUMENT ---
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 CHI RENAE NP CVA active Gregorio Medina MD ENCOUNTERS Date Type Provider Location Encounter Diag nosis - In-person encounter Office Visit Gregorio Medina MD [facility] CVA - In-person encounter Office Visit Donnell Forbes MD [facility] - In-person encounter Office Visit Donnell Forbes MD [facility] HYPERLIPIDEMIA-PMD MONITORING LIPID LEVELS VITAL SIGNS Date Observation Value Provider Body Mass Index (Ratio) 30.45 kg/m2 Leandro Medina MD blood pressure, cuff size regular Ja rret blood pressure, diastolic 70 mm[Hg] Ja rret blood pressure, systolic 133 mm[Hg] Brianna ret pulse rate 74 /min Aron respiratory rate E&M 12 /min Aron oxygen saturation, oximetry 97 % Aron height E&M 65 [in_i] Aron [facility] y weight E&M 183 [lb_av] Aron [facility] y blood pressure, diastolic, left arm 87 mm [Hg] Martita [place] blood pressure, systolic, left arm 145 mm [Hg] Martita [place] blood pressure, diastolic, right arm 78 m m[Hg] Martita [place] blood pressure, systolic, right arm 147 m m[Hg] Martita [place] blood pressure, diastolic 78 mm[Hg] Fe jhoan [place] blood pressure, systolic 147 mm[Hg] Fel icia [place] pulse rate 80 /min Martita [place] oxygen saturation, oximetry 96 % Martita [place] respiratory rate E&M 18 /min Martita [place] weight E&M 228 [lb_av] Martita [place] blood pressure, diastolic 67 mm[Hg] Ned Burgos [...] BY MOUTH ONCE A DAY Shanice Ventimiglia [employer] amlodipine 2.5 mg tablet active Shanice Ventimiglia [employer] atorvastatin 40 mg tablet active aspirin unspecified unspecified active CIPRO TABS completed 500 mg twice a day - Shanice Ventimiglia [employer] Lexapro 10 mg tablet completed 1 tablet once a day - Shanice Ventimiglia [employer] Lipitor 20 mg tablet completed 1 tablet once a day - Shanice Ventimiglia [employer] quinapril 40 mg tablet active Take 1 tablet by mouth once a day Shanice Rodriguez [facility] SOCIAL HISTORY Date Observation Value Provider drug use no Shanice knapp [facility] alcohol use no Shanice knapp [facility] smoking status Former smoker Shanice rodarte [facility] social history reviewed E&M reviewed Donnell Forbes MD social history E&M Marital Statu s: Single L [place] with family/friends 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 CHI SWENSONGUNNER [place] 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 OPERATOR social history reviewed E&M reviewed CHI GINNYTRENTON CUTTER OPERATOR physical exercise, frequency, days per week yes [facility] caffeine use, averag e drinks per day yes [facility] alcohol use, average drinks per day none [facility] number of years as a smoker 10 years or m ore [facility] smoking status Quit [facility] MENTAL STATUS Date Observation Value [...] Policy type / Coverage type Lizett red green party ID AARP MEDICARE ADVANTAGE HMO-POS HMO [id number] ADVANCE DIRECTIVES Name Date DISCUSSED - NO DECISION MADE TREATMENT PLAN Date Name Performer [id number],C,l ifestyl modification encouraged. Shanice Rodriguez [facility] [id number],C,w ith residual rt sided weakness. Negative carotid study on recent hospital stay Shanice Rodriguez [facility] [id number],C,B P 133/70 today B vi controlled E ncouraged home monitoring for goal BP <130/80 H er updated medication list for this problem includes: Quinapril 40 Mg Tablet (Quinapril) ..... Take 1 tablet by mouth once a day Amlodipine 2.5 Mg Tablet (Amlodipine) Aspirin Unspecified Unspecified (Aspirin) Shaniceomar Rodriguez [facility] [id number],C,A typical chest pain has been ongoing for over a year and occurs weekly. She was hospitalized for HTN urgency and had elevated troponin. Echo in hospital showed EF of 65% with mild LV, mod mitral calcification and aortic calcification. She had stress test that showed fixed defect. At ths time medical management. [facility] [id number],C,W ill add zetia as LDL 119 in [...] Tablet (Atorvastatin) Orders: 9 9214 MOD 30-39min (CPT-88069) L IPID PANEL (0518) [facility] Cardiology:lifestyl modification encouraged. [facility] Cardiology:with resi dual rt sided weakness. Negative carotid study on recent hospital stay [facility] Cardiology:BP 133/70 today B vi controlled E ncouraged home monitoring for goal BP <130/80 H er updated medication list for this problem includes: Quinapril 40 Mg Tablet (Quinapril) ..... Take 1 tablet by mouth once a day Amlodipine 2.5 Mg Tablet (Amlodipine) Aspirin Unspecified Unspecified (Aspirin) [facility] Cardiology:Atypical chest pain has been ongoing for over a year and occurs weekly. She was hospitalized for HTN urgency and had elevated troponin. Echo in hospital showed EF of 65% with mild LV, mod mitral calcification and aortic calcification. She had stress test that showed fixed defect. At ths time medical management. [facility] Cardiology:Will add zetia as LDL 119 in [...] Tablet (Atorvastatin) Orders: 9 9214 MOD 30-39min ([id number]) L IPID PANEL (2280) Shanice Rodriguez [employer] ROUTINE F/U WITH ECH O: H er [...] by mouth every day Orders: Ngoc KG (CPT-60211) Donnell Forbes MD office visit: B P today: Orders: Jairon omplete Echo ([id number]) S chedule Followup (*) CHI RENAE NP office visit: H er updated medication list for this problem includes: Quinapril Hcl 40 Mg Tabs (Quinapril hcl) ..... 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 Take 1 tablet by mouth every day BP today: Prior BP: / () Nuclear Stress Findings: NORMAL EF 50% (12/31/2006) E chocardiogram: normal: EF 60% (12/31/2006) Orders: C omplete Echo ([id number]) S chedule Followup (*) CHI GINNYTRENTON CUTTER OPERATOR office visit: H er updated medication list for this problem includes: Quinapril Hcl 40 Mg Tabs (Quinapril hcl) ..... Take 1 tablet by mouth every day BP today: Prior BP: / () Nuclear Stress Findings: NORMAL EF 50% (12/31/2006) E chocardiogram: normal: EF 60% (12/31/2006) BP today: Orders: C omplete Echo (CPT-[id number]) S chedule Followup (*) CHI GINNYTRENTON CUTTER OPERATOR office visit: B P today: CHI GINNYTRENTON CUTTER OPERATOR office visit: H er updated medication list for this problem includes: Quinapril Hcl 40 Mg Tabs (Quinapril hcl) ..... Take 1 tablet by mouth every day BP today: Prior BP: / () Nuclear Stress Findings: NORMAL EF 50% (12/31/2006) E chocardiogram: normal: EF 60% (12/31/2006) CHI GINNYTRENTON CUTTER OPERATOR office visit: H er updated medication list for this problem includes: Quinapril Hcl 40 Mg Tabs (Quinapril hcl) ..... Take 1 tablet by mouth every day BP today: Prior BP: / () Nuclear Stress Findings: NORMAL EF 50% (12/31/2006) E chocardiogram: normal: EF 60% (12/31/2006) CHI GROSSSENYANG CUTTER OPERATOR office visit: H er updated medication list for this problem includes: Quinapril Hcl 40 Mg Tabs (Quinapril hcl) ..... Take 1 tablet by mouth every day BP today: 103/67 Prior BP: / () Nuclear Stress Findings: NORMAL EF 50% (12/31/2006) E chocardiogram: normal: EF 60% (12/31/2006) BP today: 103/67 CHI RENAE CUTTER OPERATOR Date Name LIPID PANEL Stress Regadenoson Complete Echo Complete Echo HISTORY OF PROCEDURES Procedure Date Procedure Name Provider Procedure Notes S tatus Mobile Cardiac Telemetry - Tech Shaan Montemayor DO completed Mobile Cardiac Telemetry - Prof Shaan Montemayor DO completed EKG Donnell Forbes MD completed Schedule Followup Donnell Forbes MD F/U 1 YEAR co mpleted
--- OUTSIDE RECORDS SUMMARY | 2024-08-13 19:11 | XMS_ITS | Clinical Summary ---
Author Organization [facility] Address [address] [place] [address] Care Team Providers Care Commissioned Sales Associate Name Role Phone Johnie Ordaz MD Primary Care Provider + [phone] Allergies No known active allergies Medications blood [...] 03/09/2023 Assessment & Plan (03/09/2023 12:52 PM COIL REWIND MACHINE OPERATOR): Differential diagnosis would include benign nodule (macrofollicular [...] Description 07/10/2024 9:00 AM CDT Office Visit [facility] Neurology [address] [id number] Tali Moody NP Infarction of left basal ganglia (HCC); 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 Never 05/22/2024 Do you belong to any clubs o r organizations such as episcopal groups, unions, fraternal or athletic groups, or [...] any time in the past 12 m [facility], were you homeless or living in a skilled nursing (including now)? No 05/22/2024 Personal Safety Answer Date Recorded Have you ever been in or are you currently in a harmful physical or emotional relationship or is someone making you feel afraid or unsafe? Denies 05/21/2024 Comments No Sex and Gender Information Value Date Recorded Sex Assigned at Not on file Legal Sex Female 8:13 PM COIL REWIND MACHINE OPERATOR Gender Identity Not on file Sexual Orientation Not on file Obstetrics History Last Filed Vital Signs Vital Sign Reading Time Taken Comments Blood Pressure 120/60 07/10/2024 9:14 AM CDT Pulse 91 07/10/2024 9:14 AM CDT Temperature 36.3 C (97.3 F) 05/25/2024 11:34 AM COIL REWIND MACHINE OPERATOR Respiratory Rate 19 07/10/2024 9:14 AM CDT [...] Diagnosis Comments EGFR Routine 05/29/2024 6:03 AM COIL REWIND MACHINE OPERATOR BASIC METABOLIC PANEL Routine 05/29/2024 6:03 AM COIL REWIND MACHINE OPERATOR DIFFERENTIAL AUTO Routine 05/29/2024 6:0 3 AM COIL REWIND MACHINE OPERATOR CBC WITH AUTO DIFFERENTIAL Routine 05/29/2024 6:03 AM COIL REWIND MACHINE OPERATOR VITAMIN D 25 HYDROXY Routine 05/26/2024 6:13 AM COIL REWIND MACHINE OPERATOR PREALBUMIN Routine 05/26/2024 6:13 AM COIL REWIND MACHINE OPERATOR EGFR Routine 05/26/2024 6:13 AM COIL REWIND MACHINE OPERATOR VITAMIN B12 Routine 05/26/2024 6:13 AM COIL REWIND MACHINE OPERATOR COMPREHENSIVE METABOLIC PANEL Routine 05/26/2024 6:13 AM COIL REWIND MACHINE OPERATOR MAGNESIUM Routine 05/26/2024 6:13 AM COIL REWIND MACHINE OPERATOR PHOSPHORUS Routine 05/26/2024 6:13 AM COIL REWIND MACHINE OPERATOR POCT GLUCOSE DEVICE Routine 05/25/2024 1 2:22 PM COIL REWIND MACHINE OPERATOR POCT GLUCOSE DEVICE Routine 05/25/2024 7 :46 AM COIL REWIND MACHINE OPERATOR EGFR Routine 05/25/2024 6:01 AM COIL REWIND MACHINE OPERATOR DIFFERENTIAL AUTO Routine 05/25/2024 6:0 1 AM COIL REWIND MACHINE OPERATOR CBC WITH AUTO DIFFERENTIAL Routine 05/25/2024 6:01 AM COIL REWIND MACHINE OPERATOR BASIC METABOLIC PANEL Routine 05/25/2024 6:01 AM COIL REWIND MACHINE OPERATOR POCT GLUCOSE DEVICE Routine 05/24/2024 8 :32 PM COIL REWIND MACHINE OPERATOR POCT GLUCOSE DEVICE Routine 05/24/2024 5 :18 PM COIL REWIND MACHINE OPERATOR POCT GLUCOSE DEVICE Routine 05/24/2024 1 1:59 AM COIL REWIND MACHINE OPERATOR EGFR Routine 05/24/2024 7:58 AM COIL REWIND MACHINE OPERATOR DIFFERENTIAL AUTO Routine 05/24/2024 7:5 8 AM COIL REWIND MACHINE OPERATOR CBC WITH AUTO DIFFERENTIAL Routine 05/24/2024 7:58 AM COIL REWIND MACHINE OPERATOR BASIC METABOLIC PANEL Routine 05/24/2024 7:58 AM COIL REWIND MACHINE OPERATOR POCT GLUCOSE DEVICE Routine 05/24/2024 7 :42 AM COIL REWIND MACHINE OPERATOR POCT GLUCOSE DEVICE Routine 05/23/2024 9 :07 PM COIL REWIND MACHINE OPERATOR POCT GLUCOSE DEVICE Routine 05/23/2024 5 :55 PM COIL REWIND MACHINE OPERATOR POCT GLUCOSE DEVICE Routine 05/23/2024 1 1:06 AM COIL REWIND MACHINE OPERATOR POCT GLUCOSE DEVICE Routine 05/23/2024 8 :02 AM COIL REWIND MACHINE OPERATOR EGFR Routine 05/23/2024 5:34 AM COIL REWIND MACHINE OPERATOR DIFFERENTIAL AUTO Routine 05/23/2024 5:3 4 AM COIL REWIND MACHINE OPERATOR CBC WITH AUTO DIFFERENTIAL Routine 05/23/2024 5:34 AM COIL REWIND MACHINE OPERATOR BASIC METABOLIC PANEL Routine 05/23/2024 5:34 AM COIL REWIND MACHINE OPERATOR POCT GLUCOSE DEVICE Routine 05/22/2024 9 :13 PM COIL REWIND MACHINE OPERATOR CTA HEAD NECK W WO CONTRAST IP Routine 05/22/2024 8:04 PM COIL REWIND MACHINE OPERATOR POCT GLUCOSE DEVICE Routine 05/22/2024 6 :14 PM COIL REWIND MACHINE OPERATOR TRANSTHORACIC ECHO (TTE) COMPLETE W DOPPLER/CF W CONTRAST W BUBBLE Routine 05/22/2024 2:20 PM COIL REWIND MACHINE OPERATOR POCT GLUCOSE DEVICE Routine 05/22/2024 1 2:48 PM COIL REWIND MACHINE OPERATOR ECG 12-LEAD Routine 05/22/2024 10:35 AM COIL REWIND MACHINE OPERATOR US CAROTIDS DUPLEX BILATERAL IP Routine 05/22/2024 9:28 AM COIL REWIND MACHINE OPERATOR POCT GLUCOSE DEVICE Routine 05/22/2024 8 :56 AM COIL REWIND MACHINE OPERATOR VITAMIN D 25 HYDROXY Timed 05/22/2024 8:03 AM COIL REWIND MACHINE OPERATOR FOLATE Timed 05/22/2024 8:03 AM COIL REWIND MACHINE OPERATOR IRON PROFILE W/ IBC Timed 05/22/2024 8 :03 AM COIL REWIND MACHINE OPERATOR CRP (ACUTE PHASE) Routine 05/22/2024 5:5 2 AM COIL REWIND MACHINE OPERATOR MAGNESIUM Routine 05/22/2024 5:52 AM COIL REWIND MACHINE OPERATOR FERRITIN Routine 05/22/2024 5:52 AM COIL REWIND MACHINE OPERATOR EGFR Routine 05/22/2024 5:52 AM COIL REWIND MACHINE OPERATOR DIFFERENTIAL AUTO Routine 05/22/2024 5:5 2 AM COIL REWIND MACHINE OPERATOR CBC WITH AUTO DIFFERENTIAL Routine 05/22/2024 5:52 AM COIL REWIND MACHINE OPERATOR BASIC METABOLIC PANEL Routine 05/22/2024 5:52 AM COIL REWIND MACHINE OPERATOR POCT GLUCOSE DEVICE Routine 05/21/2024 7 :39 PM COIL REWIND MACHINE OPERATOR MRI BRAIN WO CONTRAST IP Routine 05/21/2024 6:34 PM COIL REWIND MACHINE OPERATOR CT BODY OUTSIDE REFERENCE Routine 05/21/2024 4:52 PM COIL REWIND MACHINE OPERATOR CT BODY OUTSIDE REFERENCE Routine 05/21/2024 4:46 PM COIL REWIND MACHINE OPERATOR POCT GLUCOSE DEVICE Routine 05/21/2024 4 :31 PM COIL REWIND MACHINE OPERATOR EGFR STAT 05/21/2024 3:03 PM COIL REWIND MACHINE OPERATOR DIFFERENTIAL AUTO STAT 05/21/2024 3:0 3 PM COIL REWIND MACHINE OPERATOR THYROID FUNCTION CASCADE Routine 05/21/2024 3:03 PM COIL REWIND MACHINE OPERATOR HEMOGLOBIN A1C STAT 05/21/2024 3:03 PM COIL REWIND MACHINE OPERATOR LIPID PANEL STAT 05/21/2024 3:03 PM COIL REWIND MACHINE OPERATOR BASIC METABOLIC PANEL STAT 05/21/2024 3:03 PM COIL REWIND MACHINE OPERATOR CBC WITH AUTO DIFFERENTIAL STAT 05/21/2024 3:03 PM COIL REWIND MACHINE OPERATOR CT BODY OUTSIDE REFERENCE Routine 05/20/2024 12:00 AM COIL REWIND MACHINE OPERATOR from Last 3 Months Results * eGFR (05/29/2024 6:03 AM COIL REWIND MACHINE OPERATOR) Pathologist [facility] eGFR 62 >=60 mL/min/1. 73 m2 JARED [...] was last reviewed 2021. Testing performed by: [address] [address] Blood 05/29/2024 6:03 AM COIL REWIND MACHINE OPERATOR 05/29/2024 8:14 AM COIL REWIND MACHINE OPERATOR us Notinfile Unknown LAB BLOOD ORDERABLES Final Res ult JARED [address] [facility] [place] [address] * Differential, auto (05/29/2024 6:03 AM COIL REWIND MACHINE OPERATOR) Neutrophil abs 5.4 1.5 - 6.5 K/cumm JARED PÉREZ Comment:Testing performed by : [address] [address] Imm gran abs 0.0 0.0 - 0.1 K/cumm JARED PÉREZ Comment:Testing performed by : [address] [address] Lymphocyte abs 1.6 0.8 - 3.3 K/cumm JARED PÉREZ Comment:Testing performed by : [address] [address] Monocyte abs 0.8 0.2 - 0.8 K/cumm JARED PÉREZ Comment:Testing performed by : [address] [address] Eosinophil abs 0.1 0.0 - 0.5 K/cumm JARED Comment:Testing performed by : [address] [address] Basophil abs 0.1 0.0 - 0.1 K/cumm JARED Comment:Testing performed by : [address] [address] Neutrophil pct 67.6 % [facility] Comment: Interpretive Data Percent cell count reference ranges are not reported, since discordance with absolute values may lead to misinterpretation of CBC data. Current Interpretive Data was last revised on 2017. Testing performed by: [address] [address] Imm gran pct 0.4 % [facility] Comment: Interpretive Data Percent cell count reference ranges are not reported, since discordance with absolute values may lead to misinterpretation of CBC data. Current Interpretive Data was last revised on 2017. Testing performed by: [address] [address] Lymphocyte pct 19.4 % [facility] Comment: Interpretive Data Percent cell count reference ranges are not reported, since discordance with absolute values may lead to misinterpretation of CBC data. Current Interpretive Data was last revised on 2017. Testing performed by: [address] [address] Monocyte pct 9.4 % [facility] Comment: Interpretive Data Percent cell count reference ranges are not reported, since discordance with absolute values may lead to misinterpretation of CBC data. Current Interpretive Data was last revised on 2017. Testing performed by: [address] [address] Eosinophil pct 1.8 % [facility] Comment: Interpretive Data Percent cell count reference ranges are not reported, since discordance with absolute values may lead to misinterpretation of CBC data. Current Interpretive Data was last revised on 2017. Testing performed by: [address] [address] Basophil pct 1.4 % [facility] Comment: Interpretive Data Percent cell count reference ranges are not reported, since discordance with absolute values may lead to misinterpretation of CBC data. Current Interpretive Data was last revised on 2017. Testing performed by: [address] [address] Blood 05/29/2024 6:03 AM COIL REWIND MACHINE OPERATOR 05/29/2024 8:14 AM COIL REWIND MACHINE OPERATOR us Notinfile Unknown LAB BLOOD ORDERABLES Final Res ult JARED PÉREZ [address] [facility] Department [place] [address] * (ABNORMAL) CBC with auto differential (05/29/2024 6:03 AM COIL REWIND MACHINE OPERATOR) WBC 8.0 3.8 - 9.9 K/cumm JARED PÉREZ Comment:Testing performed by : [address] [address] Hgb 11.6(L) 11.9 - 15.5 g/dL JARED Comment:Testing performed by : [address] [address] Hct 36.8 35.6 - 45.5 % JARED Comment:Testing performed by : [address] [address] Plt 311 150 - 400 K/cumm JARED Comment:Testing performed by : [address] [address] MPV 9.6 9.1 - 12.3 fL JARED Comment:Testing performed by : [address] [address] RBC 4.75 3.90 - 5.20 M/cumm JARED PÉREZ Comment:Testing performed by : [address] [address] MCV 77.5(L) 81.3 - 96.4 fL JARED Comment:Testing performed by : [address] [address] MCH 24.4(L) 27.1 - 33.3 pg JARED PÉREZ Comment:Testing performed by : [address] [address] MCHC 31.5(L) 32.3 - 35.7 g/dL JARED Comment:Testing performed by : [address] [address] RDW CV 15.6(H) 11.1 - 14.9 % JARED Comment:Testing performed by : [address] [address] RDW SD 42.9 35.7 - 48.1 fL JARED PÉREZ Comment:Testing performed by : [address] [address] NRBC abs 0.00 0.00 - 0.01 K/cumm JARED Comment:Testing performed by : [address] [address] Blood 05/29/2024 6:03 AM COIL REWIND MACHINE OPERATOR 05/29/2024 8:14 AM COIL REWIND MACHINE OPERATOR us Notinfile Unknown LAB BLOOD ORDERABLES Final Res ult JARED [address] [facility] Department [place] [address] * (ABNORMAL) Basic metabolic panel (05/29/2024 6:03 AM COIL REWIND MACHINE OPERATOR) Sodium 138 135 - 145 mmol/L JARED PÉREZ Comment:Testing performed by : [address], [address] Potassium, pl 4.2 3.3 - 4.9 mmol/L JARED Comment:Testing performed by : [address] [address] Chloride 108 97 - 110 mmol/L JARED Comment:Testing performed by : [address] [address] CO2 20(L) 22 - 32 mmol/L JARED Comment:Testing performed by : [address], [address] Anion gap 10 2 - 15 mmol/L JARED Comment:Testing performed by : [address] [address] BUN 13 6 - 25 mg/dL JARED Comment:Testing performed by : [address], [address] Creatinine 0.96 0.60 - 1.10 mg/dL JARED PÉREZ Comment:Testing performed by : [address] [address] Glucose 91 70 - 199 mg/dL JARED [...] was last revised 2022. Testing performed by: [address] [address] Calcium 10.0 8.5 - 10.3 mg/dL JARED Comment:Testing performed by : [address] [address] Blood 05/29/2024 6:03 AM COIL REWIND MACHINE OPERATOR 05/29/2024 8:14 AM COIL REWIND MACHINE OPERATOR us Notinfile Unknown LAB BLOOD ORDERABLES Final Res ult JARED [address] [facility] Department of Laboratories [place], [place] [id number] * eGFR (05/26/2024 6:13 AM COIL REWIND MACHINE OPERATOR) eGFR 78 >=60 mL/min/1. 73 m2 JARED [...] was last reviewed 2021. Testing performed by: [facility], [address] [place] [address]., [address] Blood 05/26/2024 6:13 AM COIL REWIND MACHINE OPERATOR 05/26/2024 8:39 AM COIL REWIND MACHINE OPERATOR us Notinfile Unknown LAB BLOOD ORDERABLES Final Res ult Performing Organization Address [facility] Co de Phone Number [address] [place] [employer] [place] [address] * (ABNORMAL) Vitamin D 25 hydroxy (05/26/2024 6:13 AM COIL REWIND MACHINE OPERATOR) Vitamin D 25-OH 13.0(L) 30.0 - 80.0 ng/mL [facility] Blood 05/26/2024 6:13 AM COIL REWIND MACHINE OPERATOR 05/26/2024 10:19 AM COIL REWIND MACHINE OPERATOR us Notinfile Unknown LAB BLOOD ORDERABLES Final Res ult Performing Organization Address [facility] Co de Phone Number [address] [place] [place] [address] * (ABNORMAL) Prealbumin (05/26/2024 6:13 AM COIL REWIND MACHINE OPERATOR) Prealbumin 13.2(L) 20.0 - 40.0 mg/dL [facility] Comment:Specimen is Lipemic; results may be inaccurate due to high levels of lipids. Blood 05/26/2024 6:13 AM COIL REWIND MACHINE OPERATOR 05/26/2024 10:19 AM COIL REWIND MACHINE OPERATOR us Notinfile Unknown LAB BLOOD ORDERABLES Final Res ult Performing Organization Address [facility] Co de Phone Number [address] [place] [address] * Phosphorus (05/26/2024 6:13 AM COIL REWIND MACHINE OPERATOR) Phosphorus, pl 4.1 2.3 - 4.5 mg/dL JARED PÉREZ Comment:Testing performed by : [address] [address] Blood 05/26/2024 6:13 AM COIL REWIND MACHINE OPERATOR 05/26/2024 8:39 AM COIL REWIND MACHINE OPERATOR us Notinfile Unknown LAB BLOOD ORDERABLES Final Res ult JARED [address] [address] * Magnesium (05/26/2024 6:13 AM COIL REWIND MACHINE OPERATOR) Pathologist [facility] Magnesium 2.5 1.4 - 2.5 mg/dL JARED Comment:Testing performed by : [address] [address] Blood 05/26/2024 6:13 AM COIL REWIND MACHINE OPERATOR 05/26/2024 8:39 AM COIL REWIND MACHINE OPERATOR us Notinfile Unknown LAB BLOOD ORDERABLES Final Res ult Performing Organization Address City/[facility]/ZIP Co de Phone Number [address] [address] * Vitamin B12 (05/26/2024 6:13 AM COIL REWIND MACHINE OPERATOR) Vitamin B12 421 230 - 1,250 pg/mL JARED Comment:Testing performed by : [address] [address] Blood 05/26/2024 6:13 AM COIL REWIND MACHINE OPERATOR 05/26/2024 8:39 AM COIL REWIND MACHINE OPERATOR us Notinfile Unknown LAB BLOOD ORDERABLES Final Res ult [address] [place] [address] * (ABNORMAL) Comprehensive metabolic panel (05/26/2024 6:13 AM COIL REWIND MACHINE OPERATOR) Sodium 136 135 - 145 mmol/L JARED Comment:Testing performed by : [address] [address] Potassium, pl 4.4 3.3 - 4.9 mmol/L JARED Comment:Testing performed by : [address] [address] Chloride 105 97 - 110 mmol/L JARED Comment:Testing performed by : [address], [place]., [address] CO2 21(L) 22 - 32 mmol/L JARED Comment:Testing performed by : [address] [address] Anion gap 10 2 - 15 mmol/L JARED Comment:Testing performed by : [address] [address] BUN 15 6 - 25 mg/dL JARED Comment:Testing performed by : [address] [address] Creatinine 0.80 0.60 - 1.10 mg/dL JARED Comment:Testing performed by : [address] [address] Glucose 111 70 - 199 mg/dL JARED [...] was last revised 2022. Testing performed by: [address] [address] Calcium 10.4(H) 8.5 - 10.3 mg/dL JARED Comment:Testing performed by : [address] [address] Bilirubin, total 0.6 0.1 - 1.2 mg/dL JARED PÉREZ Comment:Testing performed by : [address] [address] Protein, pl 6.9 6.5 - 8.5 g/dL JARED PÉREZ Comment:Testing performed by : [address] [address] Albumin 3.8 3.5 - 5.0 g/dL JARED Comment:Testing performed by : [address] [address] Alk phos 92 40 - 130 Units/L JARED Comment:Testing performed by : [address] [address] ALT 8 7 - 45 Units/L JARED Comment:Testing performed by : [address] [address] AST 26 10 - 45 Units/L JARED Comment:Testing performed by : [address] [address] Blood 05/26/2024 6:13 AM COIL REWIND MACHINE OPERATOR 05/26/2024 8:39 AM COIL REWIND MACHINE OPERATOR us Notinfile Unknown LAB BLOOD ORDERABLES Final Res ult [facility] [address] [facility] Department [place] [address] * POCT glucose (05/25/2024 12:22 PM COIL REWIND MACHINE OPERATOR) [facility] Signature Glucose, POC 146 70 - 199 mg/dL Comment:Testing performed by : [address] [address] Glucose comment 1 Use This Result JARED PÉREZ Comment:Testing performed by : [address] [address] Glucose comment 2 RN/MD Notified JARED PÉREZ Comment:Testing performed by : [address] [address] Blood 05/25/2024 12:2 2 PM COIL REWIND MACHINE OPERATOR 05/25/2024 12:22 PM COIL REWIND MACHINE OPERATOR August Juan MD LAB POCT ORDERABLES - D EVICE Final Result Performing Organization Address [facility] de Phone Number JARED [facility] [place] [address] * POCT glucose (05/25/2024 7:46 AM COIL REWIND MACHINE OPERATOR) [facility] Glucose, POC 97 70 - 199 mg/dL Comment:Testing performed by : [address] [address] Glucose comment 1 Use This Result JARED PÉREZ Comment:Testing performed by : [address] [address] Glucose comment 2 RN/MD Notified JARED PÉREZ Comment:Testing performed by : [address] [address] Blood 05/25/2024 7:46 AM COIL REWIND MACHINE OPERATOR 05/25/2024 7:46 AM COIL REWIND MACHINE OPERATOR August Juan MD LAB POCT ORDERABLES - D EVICE Final Result Performing Organization Address [facility] Co de Phone Number JARED [facility] [place] [address] * eGFR (05/25/2024 6:01 AM COIL REWIND MACHINE OPERATOR) [facility] eGFR >90 >=60 mL/min/1. 73 m2 [...] was last reviewed 2021. Testing performed by: [address] [address] Blood 05/25/2024 6:01 AM COIL REWIND MACHINE OPERATOR 05/25/2024 6:27 AM COIL REWIND MACHINE OPERATOR us Jenise Joyce NP LAB BLOOD ORDERABLES Final Re sult [facility] [address] [facility] Department [place] [address] * Differential, auto (05/25/2024 6:01 AM COIL REWIND MACHINE OPERATOR) Neutrophil abs 5.6 1.5 - 6.5 K/cumm Comment:Testing performed by : [address] [address] Imm gran abs 0.0 0.0 - 0.1 K/cumm JARED Comment:Testing performed by : [address] [address] Lymphocyte abs 1.2 0.8 - 3.3 K/cumm JARED Comment:Testing performed by : [address] [address] Monocyte abs 0.7 0.2 - 0.8 K/cumm JARED Comment:Testing performed by : [address] [address] Eosinophil abs 0.2 0.0 - 0.5 K/cumm JARED Comment:Testing performed by : [address] [address] Basophil abs 0.1 0.0 - 0.1 K/cumm JARED Comment:Testing performed by : [address] [address] Neutrophil pct 72.0 % JARED Comment: Interpretive Data Percent cell count reference ranges are not reported, since discordance with absolute values may lead to misinterpretation of CBC data. Current Interpretive Data was last revised on 2017. Testing performed by: [address] [address] Imm gran pct 0.3 % [facility] Comment: Interpretive Data Percent cell count reference ranges are not reported, since discordance with absolute values may lead to misinterpretation of CBC data. Current Interpretive Data was last revised on 2017. Testing performed by: [address] [address] Lymphocyte pct 15.7 % [facility] Comment: Interpretive Data Percent cell count reference ranges are not reported, since discordance with absolute values may lead to misinterpretation of CBC data. Current Interpretive Data was last revised on 2017. Testing performed by: [address] [address] Monocyte pct 8.5 % [facility] Comment: Interpretive Data Percent cell count reference ranges are not reported, since discordance with absolute values may lead to misinterpretation of CBC data. Current Interpretive Data was last revised on 2017. Testing performed by: [address] [address] Eosinophil pct 2.2 % [facility] Comment: Interpretive Data Percent cell count reference ranges are not reported, since discordance with absolute values may lead to misinterpretation of CBC data. Current Interpretive Data was last revised on 2017. Testing performed by: [address] [address] Basophil pct 1.3 % [facility] Comment: Interpretive Data Percent cell count reference ranges are not reported, since discordance with absolute values may lead to misinterpretation of CBC data. Current Interpretive Data was last revised on 2017. Testing performed by: [address] [address] Blood 05/25/2024 6:01 AM COIL REWIND MACHINE OPERATOR 05/25/2024 6:27 AM COIL REWIND MACHINE OPERATOR us Jenise Joyce NP LAB BLOOD ORDERABLES Final Re sult JARED [address] [facility] [place] [address] * (ABNORMAL) CBC with auto differential (05/25/2024 6:01 AM COIL REWIND MACHINE OPERATOR) [facility] WBC 7.8 3.8 - 9.9 K/cumm Comment:Testing performed by : [address] [address] Hgb 11.9 11.9 - 15.5 g/dL JARED Comment:Testing performed by : [address] [address] Hct 37.4 35.6 - 45.5 % JARED Comment:Testing performed by : [address] [address] Plt 315 150 - 400 K/cumm JARED Comment:Testing performed by : [address] [address] MPV 9.8 9.1 - 12.3 fL JARED Comment:Testing performed by : [address] [address] RBC 4.93 3.90 - 5.20 M/cumm JARED Comment:Testing performed by : [address] [address] MCV 75.9(L) 81.3 - 96.4 fL JARED Comment:Testing performed by : [address] [address] MCH 24.1(L) 27.1 - 33.3 pg JARED Comment:Testing performed by : [address] [address] MCHC 31.8(L) 32.3 - 35.7 g/dL JARED Comment:Testing performed by : [address], [address] RDW CV 15.1(H) 11.1 - 14.9 % JARED Comment:Testing performed by : [address] [address] RDW SD 41.2 35.7 - 48.1 fL JARED Comment:Testing performed by : [address] [address] NRBC abs 0.00 0.00 - 0.01 K/cumm JARED Comment:Testing performed by : [address] [address] Blood 05/25/2024 6:01 AM COIL REWIND MACHINE OPERATOR 05/25/2024 6:27 AM COIL REWIND MACHINE OPERATOR Jenise Joyce NP LAB BLOOD ORDERABLES Final Re sult JARED [address] [facility] [place] [address] * Basic metabolic panel (05/25/2024 6:01 AM COIL REWIND MACHINE OPERATOR) Sodium 136 135 - 145 mmol/L Comment:Testing performed by : [address] [address] Potassium, pl 4.3 3.3 - 4.9 mmol/L JARED Comment:Testing performed by : [address] [address] Chloride 104 97 - 110 mmol/L JARED Comment:Testing performed by : [address] [address] CO2 22 22 - 32 mmol/L JARED Comment:Testing performed by : [address] [address] Anion gap 10 2 - 15 mmol/L JARED Comment:Testing performed by : [address] [address] BUN 12 6 - 25 mg/dL JARED Comment:Testing performed by : [address] [address] Creatinine 0.70 0.60 - 1.10 mg/dL JARED Comment:Testing performed by : [address] [address] Glucose 102 70 - 199 mg/dL JARED [...] was last revised 2022. Testing performed by: [address] [address] Calcium 10.2 8.5 - 10.3 mg/dL JARED Comment:Testing performed by : [address] [address] Blood 05/25/2024 6:01 AM COIL REWIND MACHINE OPERATOR 05/25/2024 6:27 AM COIL REWIND MACHINE OPERATOR us Jenise Joyce NP LAB BLOOD ORDERABLES Final Re sult Performing Organization Address City/[facility]/ZIP Co de Phone Number [address] [place] [address] * POCT glucose (05/24/2024 8:32 PM COIL REWIND MACHINE OPERATOR) Glucose, POC 107 70 - 199 mg/dL Comment:Testing performed by : [address] [address] Glucose comment 1 Use This Result JARED Comment:Testing performed by : [address] [address] Blood 05/24/2024 8:32 PM COIL REWIND MACHINE OPERATOR 05/24/2024 8:32 PM COIL REWIND MACHINE OPERATOR us August Juan MD LAB POCT ORDERABLES - D JEFFERYICE Final Result Performing Organization Address City/[facility]/ZIP Co de Phone Number [address] [place] [address] * POCT glucose (05/24/2024 5:18 PM COIL REWIND MACHINE OPERATOR) Glucose, POC 103 70 - 199 mg/dL Comment:Testing performed by : [address] [address] Glucose comment 1 Use This Result JARED Comment:Testing performed by : [facility], [address] [place] [address]., [address] Glucose comment 2 RN/MD Notified JARED Comment:Testing performed by : [facility], [address] [place] [address]., [address] Blood 05/24/2024 5:18 PM COIL REWIND MACHINE OPERATOR 05/24/2024 5:18 PM COIL REWIND MACHINE OPERATOR August Juan MD LAB POCT ORDERABLES - D EVICE Final Result Performing Organization Address [facility] Co de Phone Number PETRTARA [address] [place] [address] * POCT glucose (05/24/2024 11:59 AM COIL REWIND MACHINE OPERATOR) [facility] Glucose, POC 171 70 - 199 mg/dL Comment:Testing performed by : [facility], [address] [place] [address]., [address] Glucose comment 1 Use This Result JARED Comment:Testing performed by : [facility], [address] [place] [address]., [address] Glucose comment 2 RN/MD Notified JARED Comment:Testing performed by : [facility], [address] [place] [address]., [address] Blood 05/24/2024 11:5 9 AM COIL REWIND MACHINE OPERATOR 05/24/2024 11:59 AM COIL REWIND MACHINE OPERATOR August Juan MD LAB POCT ORDERABLES - D EVICE Final Result Performing Organization Address [facility] Co de Phone Number [place] [id number] [facility] [place] [address] * eGFR (05/24/2024 7:58 AM COIL REWIND MACHINE OPERATOR) [facility] eGFR 77 >=60 mL/min/1. 73 m2 Comment: [...] was last reviewed 2021. Testing performed by: [address] [address] Blood 05/24/2024 7:58 AM COIL REWIND MACHINE OPERATOR 05/24/2024 9:06 AM COIL REWIND MACHINE OPERATOR us Jenise Joyce NP LAB BLOOD ORDERABLES Final Re sult [facility] [address] [facility] [place] [address] * Differential, auto (05/24/2024 7:58 AM COIL REWIND MACHINE OPERATOR) Neutrophil abs 5.0 1.5 - 6.5 K/cumm Comment:Testing performed by : [address] [address] Imm gran abs 0.0 0.0 - 0.1 K/cumm JARED Comment:Testing performed by : [address] [address] Lymphocyte abs 1.2 0.8 - 3.3 K/cumm JARED Comment:Testing performed by : [address] [address] Monocyte abs 0.5 0.2 - 0.8 K/cumm JARED Comment:Testing performed by : [address] [address] Eosinophil abs 0.1 0.0 - 0.5 K/cumm JARED Comment:Testing performed by : [address] [address] Basophil abs 0.1 0.0 - 0.1 K/cumm JARED Comment:Testing performed by : [address] [address] Neutrophil pct 71.8 % [facility] Comment: Interpretive Data Percent cell count reference ranges are not reported, since discordance with absolute values may lead to misinterpretation of CBC data. Current Interpretive Data was last revised on 2017. Testing performed by: [address] [address] Imm gran pct 0.4 % [facility] Comment: Interpretive Data Percent cell count reference ranges are not reported, since discordance with absolute values may lead to misinterpretation of CBC data. Current Interpretive Data was last revised on 2017. Testing performed by: [address] [address] Lymphocyte pct 16.8 % [facility] Comment: Interpretive Data Percent cell count reference ranges are not reported, since discordance with absolute values may lead to misinterpretation of CBC data. Current Interpretive Data was last revised on 2017. Testing performed by: [address] [address] Monocyte pct 7.8 % [facility] Comment: Interpretive Data Percent cell count reference ranges are not reported, since discordance with absolute values may lead to misinterpretation of CBC data. Current Interpretive Data was last revised on 2017. Testing performed by: [address] [address] Eosinophil pct 1.9 % [facility] Comment: Interpretive Data Percent cell count reference ranges are not reported, since discordance with absolute values may lead to misinterpretation of CBC data. Current Interpretive Data was last revised on 2017. Testing performed by: [address] [address] Basophil pct 1.3 % [facility] Comment: Interpretive Data Percent cell count reference ranges are not reported, since discordance with absolute values may lead to misinterpretation of CBC data. Current Interpretive Data was last revised on 2017. Testing performed by: [address] [address] Blood 05/24/2024 7:58 AM COIL REWIND MACHINE OPERATOR 05/24/2024 9:08 AM COIL REWIND MACHINE OPERATOR us Jenise Joyce NP LAB BLOOD ORDERABLES Final Re sult [facility] [address] [facility] [place] [address] * (ABNORMAL) CBC with auto differential (05/24/2024 7:58 AM COIL REWIND MACHINE OPERATOR) WBC 7.0 3.8 - 9.9 K/cumm Comment:Testing performed by : [address] [address] Hgb 12.1 11.9 - 15.5 g/dL JARED Comment:Testing performed by : [address] [address] Hct 37.8 35.6 - 45.5 % JARED Comment:Testing performed by : [address] [address] Plt 318 150 - 400 K/cumm JARED Comment:Testing performed by : [address] [address] MPV 9.4 9.1 - 12.3 fL JARED Comment:Testing performed by : [address] [address] RBC 4.92 3.90 - 5.20 M/cumm JARED Comment:Testing performed by : [address] [address] MCV 76.8(L) 81.3 - 96.4 fL JARED Comment:Testing performed by : [address] [address] MCH 24.6(L) 27.1 - 33.3 pg JARED Comment:Testing performed by : [address] [address] MCHC 32.0(L) 32.3 - 35.7 g/dL JARED Comment:Testing performed by : [address] [address] RDW CV 15.2(H) 11.1 - 14.9 % JARED PÉREZ Comment:Testing performed by : [address] [address] RDW SD 41.7 35.7 - 48.1 fL JARED PÉREZ Comment:Testing performed by : [address] [address] NRBC abs 0.00 0.00 - 0.01 K/cumm JARED PÉREZ Comment:Testing performed by : [address] [address] Blood 05/24/2024 7:58 AM COIL REWIND MACHINE OPERATOR 05/24/2024 9:08 AM COIL REWIND MACHINE OPERATOR us Jenise Joyce NP LAB BLOOD ORDERABLES Final Re sult JARED [facility] Department [place] [address] * (ABNORMAL) Basic metabolic panel (05/24/2024 7:58 AM COIL REWIND MACHINE OPERATOR) Sodium 136 135 - 145 mmol/L Comment:Testing performed by : [address] [address] Potassium, pl 4.7 3.3 - 4.9 mmol/L JARED PÉREZ Comment: Hemolyzed; Potassium value may be falsely elevated by as much as 1.0 mmol/L. Suggest redraw and reanalysis. Testing performed by: [address] [address] Chloride 106 97 - 110 mmol/L JARED PÉREZ Comment:Testing performed by : [address] [address] CO2 20(L) 22 - 32 mmol/L JARED PÉREZ Comment:Testing performed by : [address] [address] Anion gap 10 2 - 15 mmol/L JARED PÉREZ Comment:Testing performed by : [address] [address] BUN 14 6 - 25 mg/dL JARED PÉREZ Comment:Testing performed by : [address] [address] Creatinine 0.81 0.60 - 1.10 mg/dL JARED PÉREZ Comment:Testing performed by : [address] [address] Glucose 99 70 - 199 mg/dL JARED [...] was last revised 2022. Testing performed by: [address] [address] Calcium 9.9 8.5 - 10.3 mg/dL JARED Comment:Testing performed by : [address] [address] Blood 05/24/2024 7:58 AM COIL REWIND MACHINE OPERATOR 05/24/2024 9:06 AM COIL REWIND MACHINE OPERATOR us Jenise Joyce NP LAB BLOOD ORDERABLES Final Re sult Performing Organization Address City/State/[facility] Co de Phone Number JARED [address] [facility] Department of Laboratories [place], [place] [id number] * POCT glucose (05/24/2024 7:42 AM COIL REWIND MACHINE OPERATOR) [facility] Glucose, POC 99 70 - 199 mg/dL Comment:Testing performed by : [address] [address] Glucose comment 1 Use This Result JARED PÉREZ Comment:Testing performed by : [address] [address] Glucose comment 2 RN/MD Notified JARED PÉREZ Comment:Testing performed by : [address] [address] Blood 05/24/2024 7:42 AM COIL REWIND MACHINE OPERATOR 05/24/2024 7:42 AM COIL REWIND MACHINE OPERATOR August Juan MD LAB POCT ORDERABLES - D EVICE Final Result Performing Organization Address [facility] de Phone Number JARED [address] [facility] [place] [address] * POCT glucose (05/23/2024 9:07 PM COIL REWIND MACHINE OPERATOR) Glucose, POC 164 70 - 199 mg/dL Comment:Testing performed by : [address] [address] Glucose comment 1 Use This Result JARED PÉREZ Comment:Testing performed by : [address] [address] Glucose comment 2 RN/MD Notified JARED Comment:Testing performed by : [address] [address] Blood 05/23/2024 9:07 PM COIL REWIND MACHINE OPERATOR 05/23/2024 9:07 PM COIL REWIND MACHINE OPERATOR August Juan MD LAB POCT ORDERABLES - D EVICE Final Result Performing Organization Address [facility] Co de Phone Number JARED [address] [place] [address] * POCT glucose (05/23/2024 5:55 PM COIL REWIND MACHINE OPERATOR) Glucose, POC 97 70 - 199 mg/dL Comment:Testing performed by : [address] [address] Glucose comment 1 Use This Result JARED Comment:Testing performed by : [address] [address] Glucose comment 2 RN/MD Notified JARED Comment:Testing performed by : [address] [address] Blood 05/23/2024 5:55 PM COIL REWIND MACHINE OPERATOR 05/23/2024 5:55 PM COIL REWIND MACHINE OPERATOR August Juan MD LAB POCT ORDERABLES - D EVICE Final Result Performing Organization Address [facility] Co de Phone Number JARED [address] [facility] [place] [address] * POCT glucose (05/23/2024 11:06 AM COIL REWIND MACHINE OPERATOR) Glucose, POC 191 70 - 199 mg/dL Comment:Testing performed by : [address] [address] Glucose comment 1 Use This Result JARED Comment:Testing performed by : [address] [address] Glucose comment 2 RN/MD Notified JARED Comment:Testing performed by : [address] [address] Blood 05/23/2024 11:0 6 AM COIL REWIND MACHINE OPERATOR 05/23/2024 11:06 AM COIL REWIND MACHINE OPERATOR August Juan MD LAB POCT ORDERABLES - D EVICE Final Result Performing Organization Address [facility] Co de Phone Number JARED [facility] [place] [address] * POCT glucose (05/23/2024 8:02 AM COIL REWIND MACHINE OPERATOR) Glucose, POC 109 70 - 199 mg/dL Comment:Testing performed by : [address] [address] Glucose comment 1 Use This Result JARED Comment:Testing performed by : [address] [address] Glucose comment 2 RN/MD Notified JARED Comment:Testing performed by : [address] [address] Blood 05/23/2024 8:02 AM COIL REWIND MACHINE OPERATOR 05/23/2024 8:02 AM COIL REWIND MACHINE OPERATOR August Juan MD LAB POCT ORDERABLES - D EVICE Final Result Performing Organization Address [facility] de Phone Number JARED [facility] [place] [address] * eGFR (05/23/2024 5:34 AM COIL REWIND MACHINE OPERATOR) eGFR >90 >=60 mL/min/1. 73 m2 Comment: [...] was last reviewed 2021. Testing performed by: [address] [address] Blood 05/23/2024 5:34 AM COIL REWIND MACHINE OPERATOR 05/23/2024 6:19 AM COIL REWIND MACHINE OPERATOR us Jenise Joyce NP LAB BLOOD ORDERABLES Final Re sult Performing Organization Address [facility] Co de Phone Number [facility] [address] [facility] Department [place] [address] * Differential, auto (05/23/2024 5:34 AM COIL REWIND MACHINE OPERATOR) Neutrophil abs 5.5 1.5 - 6.5 K/cumm Comment:Testing performed by : [address] [address] Imm gran abs 0.1 0.0 - 0.1 K/cumm JARED Comment:Testing performed by : [address] [address] Lymphocyte abs 1.6 0.8 - 3.3 K/cumm CERNER Comment:Testing performed by : [address] [address] Monocyte abs 0.8 0.2 - 0.8 K/cumm [facility] Comment:Testing performed by : [address] [address] Eosinophil abs 0.2 0.0 - 0.5 K/cumm [facility] Comment:Testing performed by : [address], [place]., [address] Basophil abs 0.1 0.0 - 0.1 K/cumm [facility] Comment:Testing performed by : [address] [address] Neutrophil pct 66.9 % [facility] Comment: Interpretive Data Percent cell count reference ranges are not reported, since discordance with absolute values may lead to misinterpretation of CBC data. Current Interpretive Data was last revised on 2017. Testing performed by: [address] [address] Imm gran pct 1.1 % [facility] Comment: Interpretive Data Percent cell count reference ranges are not reported, since discordance with absolute values may lead to misinterpretation of CBC data. Current Interpretive Data was last revised on 2017. Testing performed by: [address] [address] Lymphocyte pct 19.0 % [facility] Comment: Interpretive Data Percent cell count reference ranges are not reported, since discordance with absolute values may lead to misinterpretation of CBC data. Current Interpretive Data was last revised on 2017. Testing performed by: [address] [address] Monocyte pct 9.6 % CERNER Comment: Interpretive Data Percent cell count reference ranges are not reported, since discordance with absolute values may lead to misinterpretation of CBC data. Current Interpretive Data was last revised on 2017. Testing performed by: [address] [address] Eosinophil pct 2.1 % CERNER Comment: Interpretive Data Percent cell count reference ranges are not reported, since discordance with absolute values may lead to misinterpretation of CBC data. Current Interpretive Data was last revised on 2017. Testing performed by: [address] [address] Basophil pct 1.3 % JARED PÉREZ Comment: Interpretive Data Percent cell count reference ranges are not reported, since discordance with absolute values may lead to misinterpretation of CBC data. Current Interpretive Data was last revised on 2017. Testing performed by: [address] [address] Blood 05/23/2024 5:34 AM COIL REWIND MACHINE OPERATOR 05/23/2024 6:19 AM COIL REWIND MACHINE OPERATOR us Jenise Joyce NP LAB BLOOD ORDERABLES Final Re sult JARED [address] [facility] Department [place] [address] * (ABNORMAL) CBC with auto differential (05/23/2024 5:34 AM COIL REWIND MACHINE OPERATOR) WBC 8.2 3.8 - 9.9 K/cumm Comment:Testing performed by : [address] [address] Hgb 11.9 11.9 - 15.5 g/dL JARED PÉREZ Comment:Testing performed by : [address] [address] Hct 37.9 35.6 - 45.5 % JARED PÉREZ Comment:Testing performed by : [address] [address]86 Plt 295 150 - 400 K/cumm JARED PÉREZ Comment:Testing performed by : [address] [address] MPV 9.4 9.1 - 12.3 fL JARED PÉREZ Comment:Testing performed by : [address] [address] RBC 4.95 3.90 - 5.20 M/cumm JARED PÉREZ Comment:Testing performed by : [address] [address] MCV 76.6(L) 81.3 - 96.4 fL JARED PÉREZ Comment:Testing performed by : [address] [address] MCH 24.0(L) 27.1 - 33.3 pg JARED PÉREZ Comment:Testing performed by : [address] [address] MCHC 31.4(L) 32.3 - 35.7 g/dL JARED PÉREZ Comment:Testing performed by : [address] [address] RDW CV 15.3(H) 11.1 - 14.9 % JARED PÉREZ Comment:Testing performed by : [address] [address] RDW SD 42.3 35.7 - 48.1 fL JARED PÉREZ Comment:Testing performed by : [address] [address] NRBC abs 0.00 0.00 - 0.01 K/cumm JARED PÉREZ Comment:Testing performed by : [address], [address] Blood 05/23/2024 5:34 AM COIL REWIND MACHINE OPERATOR 05/23/2024 6:19 AM COIL REWIND MACHINE OPERATOR us Jenise Joyce NP LAB BLOOD ORDERABLES Final Re sult JARED [address] [facility] Department of Laboratories [place], [place] [id number] * (ABNORMAL) Basic metabolic panel (05/23/2024 5:34 AM COIL REWIND MACHINE OPERATOR) Sodium 138 135 - 145 mmol/L Comment:Testing performed by : [address] [address] Potassium, pl 4.1 3.3 - 4.9 mmol/L JARED PÉREZ Comment:Testing performed by : [address] [address] Chloride 107 97 - 110 mmol/L JARED PÉREZ Comment:Testing performed by : [address] [address] CO2 20(L) 22 - 32 mmol/L JARED Comment:Testing performed by : [address] [address] Anion gap 11 2 - 15 mmol/L JARED Comment:Testing performed by : [address] [address] BUN 13 6 - 25 mg/dL JARED Comment:Testing performed by : [address] [address] Creatinine 0.70 0.60 - 1.10 mg/dL JARED Comment:Testing performed by : [address] [address] Glucose 106 70 - 199 mg/dL JARED [...] was last revised 2022. Testing performed by: [address] [address] Calcium 9.7 8.5 - 10.3 mg/dL JARED Comment:Testing performed by : [address] [address] Blood 05/23/2024 5:34 AM COIL REWIND MACHINE OPERATOR 05/23/2024 6:19 AM COIL REWIND MACHINE OPERATOR us Jenise Joyce NP LAB BLOOD ORDERABLES Final Re sult JARED PÉREZ [address] [facility] Department [place] [address] * POCT glucose (05/22/2024 9:13 PM COIL REWIND MACHINE OPERATOR) Glucose, POC 171 70 - 199 mg/dL Comment:Testing performed by : [facility], [address] [place] [address]., [address] Glucose comment 1 Use This Result JARED PÉREZ Comment:Testing performed by : [facility], [address] [place] [address]., [address] Blood 05/22/2024 9:13 PM COIL REWIND MACHINE OPERATOR 05/22/2024 9:13 PM COIL REWIND MACHINE OPERATOR us Christiano Cummins MD LAB POCT ORDERABLES - DEVICE Final Result PETRTARA ELISA [address] [facility] Department [place] [address] * CTA Head Neck W WO Contrast (05/22/2024 8:04 PM COIL REWIND MACHINE OPERATOR) Anatomical Region Laterality Modality Head and Neck N/A Computed Tomogra phy 05/22/2024 10:1 0 PM COIL REWIND MACHINE OPERATOR Narrative 05/22/2024 10:25 PM COIL REWIND MACHINE OPERATOR EXAM DESCRIPTION: CTA HEAD NECK W WO [...] thickening. ORBITS: No significant abnormality. INTRACRANIAL VESSELS [place]: The posterior communicating arteries are not well visualized bilaterally. The otugds-lr-Ptfmyg is otherwise intact. ANTERIOR CIRCULATION: There is [...] by Duyen Bautista M.D. SN: Report ID: [id number] Reading Location: [id number] Procedure Note Duyen Bautista MD - 05/22/2024 [...] thickening. ORBITS: No significant abnormality. INTRACRANIAL [place]: The posterior communicating arteries are not wellvisualized bilaterally. The rushuk-ti-Zevwne is otherwise intact. ANTERIOR CIRCULATION: There is [...] by Duyen Bautista M.D. SN: Report ID: [id number] Reading Location: [place] [address] us Amita Bledsoe MD IMG CT PROCEDURES Fin al Result * POCT glucose (05/22/2024 6:14 PM COIL REWIND MACHINE OPERATOR) [facility] Signature Glucose, POC 90 70 - 199 mg/dL Comment:Testing performed by : [address] [address] Glucose comment 1 Use This Result JARED Comment:Testing performed by : [address] [place] [address] Glucose comment 2 RN/MD Notified JARED PÉREZ Comment:Testing performed by : [facility], [address] [place] [address]., [address] Blood 05/22/2024 6:14 PM COIL REWIND MACHINE OPERATOR 05/22/2024 6:14 PM COIL REWIND MACHINE OPERATOR us Christiano Cummins MD LAB POCT ORDERABLES - DEVICE Final Result Performing Organization Address City/State/[facility] Co de Phone Number JARED [address] [facility] Department [place] [address] * TRANSTHORACIC ECHO (TTE) COMPLETE W DOPPLER/CF W CONTRAST W BUBBLE (05/22/2024 2:20 PM COIL REWIND MACHINE OPERATOR) Anatomical Region Laterality Modality Ultrasound 05/22/2024 1:27 PM COIL REWIND MACHINE OPERATOR Narrative 05/23/2024 11:17 AM COIL REWIND MACHINE OPERATOR Adult Echocardiogram + ----- + :Name: PINKY YAO Study Date: 05/22/2024 Status: E : : Patient Location: [address]^[id number]^MHeight: 65 in : : Weight: 170 lbBP: [...] bubble study shows no evidence of intracardiac rfkdu-pn-iocv shunting, i.e. no evidence of patent foramen [...] bubble study shows no evidence of intracardiac jeucz-hr-qsls shunting, i.e. no evidence of patent foramen [...] Date: 05/22/2024Status: MHE : : Patient Location: [address]^[id number]^MHeight: 65 in : : : 170 lbBP: [...] bubble study shows no evidence of intracardiac ijepc-uf-bnlt shunting,i.e. no evidence of patent foramen ovale [...] bubble study shows no evidence of intracardiac xwfkj-tx-dmdo shunting,i.e. no evidence of patent foramen ovale [...] lt * POCT glucose (05/22/2024 12:48 PM COIL REWIND MACHINE OPERATOR) [facility] Glucose, POC 172 70 - 199 mg/dL Comment:Testing performed by : [address] [address] Glucose comment 1 Use This Result JARED Comment:Testing performed by : [address] [address] Glucose comment 2 RN/MD Notified JARED Comment:Testing performed by : [address] [address] Blood 05/22/2024 12:4 8 PM COIL REWIND MACHINE OPERATOR 05/22/2024 12:48 PM COIL REWIND MACHINE OPERATOR us Christiano Cummins MD LAB POCT ORDERABLES - DEVICE Final Result JARED [address] [facility] Department [place] [address] * ECG 12 lead (05/22/2024 10:35 AM COIL REWIND MACHINE OPERATOR) [facility] Ventricular Rate EKG/Min 70 BPM [facility] Atrial Rate 70 BPM [facility] SD-Interval (MSEC) 210 ms [facility] QRS-Interval (MSEC) 92 ms [facility] QT-Interval (MSEC) 412 ms [facility] QTc 444 ms [facility] P [place] 39 degrees [facility] R [place] -9 degrees [facility] T [place] -3 degrees [facility] [facility] [place] Diagnosis Sinus rhythm with 1st degree A-V block Moderate voltage criteria for LVH, may be normal variant Inferior infarct , age undetermined Abnormal ECG No previous ECGs available Confirmed by ASPEN RAHMAN M.D. ([id number]) on 05/23/2024 7:37:36 AM [facility] 05/22/2024 10:3 5 AM COIL REWIND MACHINE OPERATOR 05/23/2024 7:37 AM COIL REWIND MACHINE OPERATOR Jenise Joyce NP ECG ORDERABLES Final Result [facility] * US Carotids Duplex Bilateral (05/22/2024 9:28 AM COIL REWIND MACHINE OPERATOR) Anatomical Region Laterality Modality Vascular Bilateral Ultrasound 05/22/2024 Narrative 05/26/2024 7:36 AM COIL REWIND MACHINE OPERATOR [employer] Job ID: [id number] Amphion Document ID: [id number] Dictated date/time: [id number] BILATERAL CAROTID DUPLEX REASON FOR EXAM Stroke. [...] internal carotid arteries. Job ID/Internal Job ID: [id number] Jenise Joyce NP IMG US PROCEDURES Final Resul t * POCT glucose (05/22/2024 8:56 AM COIL REWIND MACHINE OPERATOR) [facility] Glucose, POC 105 70 - 199 mg/dL Comment:Testing performed by : [facility], [address] [place] [address]., [address] Glucose comment 1 Use This Result JARED PÉREZ Comment:Testing performed by : [address] [address] Glucose comment 2 RN/MD Notified JARED PÉREZ Comment:Testing performed by : [address] [address] Blood 05/22/2024 8:56 AM COIL REWIND MACHINE OPERATOR 05/22/2024 8:56 AM COIL REWIND MACHINE OPERATOR Christiano Cummins MD LAB POCT ORDERABLES - DEVICE Final Result Performing Organization Address [facility] Co de Phone Number JARED [address] [place] [address] * (ABNORMAL) Iron profile w/ IBC (05/22/2024 8:03 AM COIL REWIND MACHINE OPERATOR) Pathologist [facility] Iron 46 35 - 145 mcg/dL Comment:Testing performed by : [address] [address] TIBC 319 250 - 400 mcg/dL JARED PÉREZ Comment:Testing performed by : [address] [address] Transferrin saturation 14(L) 20 - 50 % JARED PÉREZ Comment:Testing performed by : [address] [address] Blood 05/22/2024 8:03 AM COIL REWIND MACHINE OPERATOR 05/22/2024 9:04 AM COIL REWIND MACHINE OPERATOR us Christiano Cummins MD LAB BLOOD ORDERABLES Final R esult Performing Organization Address City/[facility]/ZIP Co de Phone Number JARED [address] [place] [address] * (ABNORMAL) Vitamin D 25 hydroxy (05/22/2024 8:03 AM COIL REWIND MACHINE OPERATOR) Vitamin D 25-OH 9.0(L) 30.0 - 80.0 ng/mL Blood 05/22/2024 8:03 AM COIL REWIND MACHINE OPERATOR 05/22/2024 12:51 PM COIL REWIND MACHINE OPERATOR Christiano Cummins MD LAB BLOOD ORDERABLES Final R esult Performing Organization Address City/[facility] Co de Phone Number JARED [address] [place] [address] * Folate (05/22/2024 8:03 AM COIL REWIND MACHINE OPERATOR) Folic acid 6.0 >=5.0 ng/mL Comment:Testing performed by : [address] [address] Blood 05/22/2024 8:03 AM COIL REWIND MACHINE OPERATOR 05/22/2024 9:04 AM COIL REWIND MACHINE OPERATOR Christiano Cummins MD LAB BLOOD ORDERABLES Final R esult Performing Organization Address City/[facility] Co de Phone Number JARED [address] [place] [employer] [place] [address] * eGFR (05/22/2024 5:52 AM COIL REWIND MACHINE OPERATOR) eGFR >90 >=60 mL/min/1. 73 m2 Comment: [...] was last reviewed 2021. Testing performed by: [address] [place]., [address] Blood 05/22/2024 5:52 AM COIL REWIND MACHINE OPERATOR 05/22/2024 6:01 AM COIL REWIND MACHINE OPERATOR us Jenise Joyce NP LAB BLOOD ORDERABLES Final Re sult [facility] [address] [facility] Department [place] [address] * Differential, auto (05/22/2024 5:52 AM COIL REWIND MACHINE OPERATOR) Neutrophil abs 5.2 1.5 - 6.5 K/cumm Comment:Testing performed by : [address] [address] Imm gran abs 0.0 0.0 - 0.1 K/cumm JARED Comment:Testing performed by : [address] [address] Lymphocyte abs 1.3 0.8 - 3.3 K/cumm JARED Comment:Testing performed by : [address] [address] Monocyte abs 0.7 0.2 - 0.8 K/cumm JARED Comment:Testing performed by : [address] [address] Eosinophil abs 0.1 0.0 - 0.5 K/cumm JARED Comment:Testing performed by : [address] [address] Basophil abs 0.1 0.0 - 0.1 K/cumm JARED Comment:Testing performed by : [address] [address] Neutrophil pct 70.2 % JARED Comment: Interpretive Data Percent cell count reference ranges are not reported, since discordance with absolute values may lead to misinterpretation of CBC data. Current Interpretive Data was last revised on 2017. Testing performed by: [address] [address] Imm gran pct 0.3 % JARED Comment: Interpretive Data Percent cell count reference ranges are not reported, since discordance with absolute values may lead to misinterpretation of CBC data. Current Interpretive Data was last revised on 2017. Testing performed by: [address] [address] Lymphocyte pct 17.7 % [facility] Comment: Interpretive Data Percent cell count reference ranges are not reported, since discordance with absolute values may lead to misinterpretation of CBC data. Current Interpretive Data was last revised on 2017. Testing performed by: [address] [address] Monocyte pct 8.8 % [facility] Comment: Interpretive Data Percent cell count reference ranges are not reported, since discordance with absolute values may lead to misinterpretation of CBC data. Current Interpretive Data was last revised on 2017. Testing performed by: [address] [address] Eosinophil pct 1.8 % [facility] Comment: Interpretive Data Percent cell count reference ranges are not reported, since discordance with absolute values may lead to misinterpretation of CBC data. Current Interpretive Data was last revised on 2017. Testing performed by: [address] [address] Basophil pct 1.2 % [facility] Comment: Interpretive Data Percent cell count reference ranges are not reported, since discordance with absolute values may lead to misinterpretation of CBC data. Current Interpretive Data was last revised on 2017. Testing performed by: [address] [address] Blood 05/22/2024 5:52 AM COIL REWIND MACHINE OPERATOR 05/22/2024 6:01 AM COIL REWIND MACHINE OPERATOR us Jenise Joyce NP LAB BLOOD ORDERABLES Final Re sult JARED PÉREZ [address] [facility] [place] [address] * (ABNORMAL) CBC with auto differential (05/22/2024 5:52 AM COIL REWIND MACHINE OPERATOR) WBC 7.4 3.8 - 9.9 K/cumm Comment:Testing performed by : [address], [address] Hgb 11.6(L) 11.9 - 15.5 g/dL JARED Comment:Testing performed by : [address], [address] Hct 37.4 35.6 - 45.5 % JARED Comment:Testing performed by : [address], [address] Plt 278 150 - 400 K/cumm JARED Comment:Testing performed by : [address], [address] MPV 9.2 9.1 - 12.3 fL JARED Comment:Testing performed by : [address], [address] RBC 4.85 3.90 - 5.20 M/cumm JARED Comment:Testing performed by : [address], [address] MCV 77.1(L) 81.3 - 96.4 fL JARED Comment:Testing performed by : [address], [address] MCH 23.9(L) 27.1 - 33.3 pg JARED Comment:Testing performed by : [address], [address] MCHC 31.0(L) 32.3 - 35.7 g/dL JARED Comment:Testing performed by : [address], [address] RDW CV 15.2(H) 11.1 - 14.9 % JARED Comment:Testing performed by : [address], [address] RDW SD 42.2 35.7 - 48.1 fL JARED Comment:Testing performed by : [address], [address] NRBC abs 0.00 0.00 - 0.01 K/cumm JARED Comment:Testing performed by : [address], [address] Blood 05/22/2024 5:52 AM COIL REWIND MACHINE OPERATOR 05/22/2024 6:01 AM COIL REWIND MACHINE OPERATOR Jenise Joyce NP LAB BLOOD ORDERABLES Final Re sult Performing Organization Address [facility] Co de Phone Number [address] [address] * CRP (acute phase) (05/22/2024 5:52 AM COIL REWIND MACHINE OPERATOR) CRP 1.8 <=10.0 mg/L Comment:Testing performed by : [address] [address] Blood 05/22/2024 5:52 AM COIL REWIND MACHINE OPERATOR 05/22/2024 6:01 AM COIL REWIND MACHINE OPERATOR Christiano Cummins MD LAB BLOOD ORDERABLES Final R esult Performing Organization Address [facility] Co de Phone Number [address] [address] * Magnesium (05/22/2024 5:52 AM COIL REWIND MACHINE OPERATOR) Magnesium 2.2 1.4 - 2.5 mg/dL Comment:Testing performed by : [address] [address] Blood 05/22/2024 5:52 AM COIL REWIND MACHINE OPERATOR 05/22/2024 6:01 AM COIL REWIND MACHINE OPERATOR Christiano Cummins MD LAB BLOOD ORDERABLES Final R esult Performing Organization Address [facility] Co de Phone Number [address] [address] * Ferritin (05/22/2024 5:52 AM COIL REWIND MACHINE OPERATOR) Ferritin 18 15 - 150 ng/mL Comment:Testing performed by : [address] [address] Blood 05/22/2024 5:52 AM COIL REWIND MACHINE OPERATOR 05/22/2024 6:01 AM COIL REWIND MACHINE OPERATOR us Christiano Cummins MD LAB BLOOD ORDERABLES Final R esult JARED PÉREZ [address] [facility] Department [place] [address] * Basic metabolic panel (05/22/2024 5:52 AM COIL REWIND MACHINE OPERATOR) Sodium 139 135 - 145 mmol/L Comment:Testing performed by : [address] [address] Potassium, pl 4.0 3.3 - 4.9 mmol/L JARED Comment:Testing performed by : [address] [address] Chloride 107 97 - 110 mmol/L JARED Comment:Testing performed by : [address] [address] CO2 25 22 - 32 mmol/L JARED Comment:Testing performed by : [address] [address] Anion gap 7 2 - 15 mmol/L JARED Comment:Testing performed by : [address] [address] BUN 12 6 - 25 mg/dL JARED Comment:Testing performed by : [address] [address] Creatinine 0.70 0.60 - 1.10 mg/dL JARED Comment:Testing performed by : [address] [address] Glucose 106 70 - 199 mg/dL JARED [...] was last revised 2022. Testing performed by: [facility], [address] [place] [address]., [address] Calcium 9.7 8.5 - 10.3 mg/dL JARED PÉREZ Comment:Testing performed by : [address] [address] Blood 05/22/2024 5:52 AM COIL REWIND MACHINE OPERATOR 05/22/2024 6:01 AM COIL REWIND MACHINE OPERATOR Jenise Joyce NP LAB BLOOD ORDERABLES Final Re sult Performing Organization Address [facility] Co de Phone Number [facility] [address] [facility] [place] [address] * POCT glucose (05/21/2024 7:39 PM COIL REWIND MACHINE OPERATOR) [facility] Glucose, POC 120 70 - 199 mg/dL Comment:Testing performed by : [address] [address] Glucose comment 1 Use This Result JARED PÉREZ Comment:Testing performed by : [address] [address] Glucose comment 2 RN/MD Notified JARED Comment:Testing performed by : [address] [address] Blood 05/21/2024 7:39 PM COIL REWIND MACHINE OPERATOR 05/21/2024 7:39 PM COIL REWIND MACHINE OPERATOR Zay Toledo MD LAB POCT ORDERABLE S - DEVICE Final Result Performing Organization Address [facility] Co de Phone Number [facility] [address] [facility] [place] [address] * MRI Brain WO Contrast (05/21/2024 6:34 PM COIL REWIND MACHINE OPERATOR) Anatomical Region Laterality Modality Head and Neck N/A Magnetic Resonan ce 05/21/2024 8:27 PM COIL REWIND MACHINE OPERATOR Narrative 05/21/2024 8:46 PM COIL REWIND MACHINE OPERATOR EXAM DESCRIPTION: MRI BRAIN WO CONTRAST REASON [...] Johnie Barrera M.D. MF: VENUS Report ID: [id number] Reading Location: [id number] Procedure Note Johnie Barrera, - 05/21/2024 EXAM [...] Johnie Barrera M.D. MF: VENUS Report ID: [id number] Reading Location: [id number] us Jenise Joyce NP IMG MRI PROCEDURES Final Resu lt * CT Body Outside Reference (05/21/2024 4:52 PM COIL REWIND MACHINE OPERATOR) Narrative JENELLE_NADYA_KRISTOFER_MHE - 05/21/2024 4:52 PM COIL REWIND MACHINE OPERATOR This order has been auto-finalized and does not contain a result. us Provider Transcribed Order IMG CT PROCEDURES Fin al Result JENELLE_NADYA_MHB_MHE * CT Body Outside Reference (05/21/2024 4:46 PM COIL REWIND MACHINE OPERATOR) Narrative ROSALIND_KRISTOFER_MHE - 05/21/2024 4:46 PM COIL REWIND MACHINE OPERATOR This order has been auto-finalized and does not contain a result. us Provider Transcribed Order IMG CT PROCEDURES Fin al Result Performing Organization Address [facility] de Phone Number JENELLE_[email or web address] * POCT glucose (05/21/2024 4:31 PM COIL REWIND MACHINE OPERATOR) Pathologist [facility] Glucose, POC 113 70 - 199 mg/dL Comment:Testing performed by : [facility], [address] [place] [address]., [address] Glucose comment 1 Use This Result JARED Comment:Testing performed by : [facility], [address] [place] [address]., [address] Glucose comment 2 RN/MD Notified JARED Comment:Testing performed by : [facility], [address] [place] [address]., [address] Blood 05/21/2024 4:31 PM COIL REWIND MACHINE OPERATOR 05/21/2024 4:31 PM COIL REWIND MACHINE OPERATOR Zay Toledo MD LAB POCT ORDERABLE S - DEVICE Final Result Performing Organization Address [facility] de Phone Number JARED [address] [facility] Department [place] [address] * eGFR (05/21/2024 3:03 PM COIL REWIND MACHINE OPERATOR) eGFR 68 >=60 mL/min/1. 73 m2 Comment: [...] was last reviewed 2021. Testing performed by: [address] [address] Blood 05/21/2024 3:03 PM COIL REWIND MACHINE OPERATOR 05/21/2024 3:05 PM COIL REWIND MACHINE OPERATOR us Jenise Joyce NP LAB BLOOD ORDERABLES Final Re sult JARED [address] [facility] Department [place] [address] * Differential, auto (05/21/2024 3:03 PM COIL REWIND MACHINE OPERATOR) Neutrophil abs 4.0 1.5 - 6.5 K/cumm Comment:Testing performed by : [address] [address] Imm gran abs 0.0 0.0 - 0.1 K/cumm JARED Comment:Testing performed by : [address] [address] Lymphocyte abs 1.2 0.8 - 3.3 K/cumm JARED Comment:Testing performed by : [address] [address] Monocyte abs 0.6 0.2 - 0.8 K/cumm JARED Comment:Testing performed by : [address] [address] Eosinophil abs 0.2 0.0 - 0.5 K/cumm JARED Comment:Testing performed by : [address] [address] Basophil abs 0.1 0.0 - 0.1 K/cumm JARED Comment:Testing performed by : [address] [address] Neutrophil pct 66.3 % JARED Comment: Interpretive Data Percent cell count reference ranges are not reported, since discordance with absolute values may lead to misinterpretation of CBC data. Current Interpretive Data was last revised on 2017. Testing performed by: [address] [address] Imm gran pct 0.3 % JARED Comment: Interpretive Data Percent cell count reference ranges are not reported, since discordance with absolute values may lead to misinterpretation of CBC data. Current Interpretive Data was last revised on 2017. Testing performed by: [address] [address] Lymphocyte pct 19.6 % [facility] Comment: Interpretive Data Percent cell count reference ranges are not reported, since discordance with absolute values may lead to misinterpretation of CBC data. Current Interpretive Data was last revised on 2017. Testing performed by: [address] [address] Monocyte pct 9.7 % [facility] Comment: Interpretive Data Percent cell count reference ranges are not reported, since discordance with absolute values may lead to misinterpretation of CBC data. Current Interpretive Data was last revised on 2017. Testing performed by: [address] [address] Eosinophil pct 2.5 % [facility] Comment: Interpretive Data Percent cell count reference ranges are not reported, since discordance with absolute values may lead to misinterpretation of CBC data. Current Interpretive Data was last revised on 2017. Testing performed by: [address] [address] Basophil pct 1.6 % [facility] Comment: Interpretive Data Percent cell count reference ranges are not reported, since discordance with absolute values may lead to misinterpretation of CBC data. Current Interpretive Data was last revised on 2017. Testing performed by: [address] [address] Blood 05/21/2024 3:03 PM COIL REWIND MACHINE OPERATOR 05/21/2024 3:05 PM COIL REWIND MACHINE OPERATOR SEC Watch PALLIATIVE CARE NURSE LAB BLOOD ORDERABLES Final Re sult Performing Organization Address City/[facility] Co de Phone Number JARED [address] [place] [address] * Thyroid Function [place] (05/21/2024 3:03 PM COIL REWIND MACHINE OPERATOR) Pathologist [facility] TSH 1.23 0.30 - 4.20 mcIUnit/mL Comment:Testing performed by : [address] [address] Blood 05/21/2024 3:03 PM COIL REWIND MACHINE OPERATOR 05/21/2024 3:05 PM COIL REWIND MACHINE OPERATOR SEC Watch PALLIATIVE CARE NURSE LAB BLOOD ORDERABLES Final Re sult Performing Organization Address [facility] de Phone Number JARED [facility] [place] [address] * (ABNORMAL) CBC with auto differential (05/21/2024 3:03 PM COIL REWIND MACHINE OPERATOR) Pathologist [facility] WBC 6.1 3.8 - 9.9 K/cumm Comment:Testing performed by : [address] [address] Hgb 11.8(L) 11.9 - 15.5 g/dL JARDE PÉREZ Comment:Testing performed by : [address] [address] Hct 37.7 35.6 - 45.5 % JARED PÉREZ Comment:Testing performed by : [address] [address] Plt 291 150 - 400 K/cumm JARED PÉREZ Comment:Testing performed by : [address] [address] MPV 9.4 9.1 - 12.3 fL JARED PÉREZ Comment:Testing performed by : [address] [address] RBC 4.86 3.90 - 5.20 M/cumm JARED PÉREZ Comment:Testing performed by : [address] [address] MCV 77.6(L) 81.3 - 96.4 fL JARED Comment:Testing performed by : [address] [address] MCH 24.3(L) 27.1 - 33.3 pg JARED PÉREZ Comment:Testing performed by : [address] [address] MCHC 31.3(L) 32.3 - 35.7 g/dL JARED Comment:Testing performed by : [address] [address] RDW CV 15.3(H) 11.1 - 14.9 % JARED Comment:Testing performed by : [address] [address] RDW SD 42.9 35.7 - 48.1 fL JARED Comment:Testing performed by : [address] [address] NRBC abs 0.00 0.00 - 0.01 K/cumm JARED Comment:Testing performed by : [address] [address] Blood 05/21/2024 3:03 PM COIL REWIND MACHINE OPERATOR 05/21/2024 3:05 PM COIL REWIND MACHINE OPERATOR Jenise Joyce NP LAB BLOOD ORDERABLES Final Re sult JARED [address] [facility] Department of Laboratories [place], [place] [address] * (ABNORMAL) Hemoglobin A1c (05/21/2024 3:03 PM COIL REWIND MACHINE OPERATOR) Hgb A1C 6.7(H) 4.0 - 5.6 % Comment:Testing performed by : [address] [address] Estimated Average Glucose 146 mg/dL JARED PÉREZ Comment: The ADA recommends reporting an estimated Average Glucose (eAG) with all Hemoglobin A1c results using the equation derived from a study of 507 normal and diabetic adults. Minority populations were underrepresented and children were not included. (Diabetes Care 31:0618-8537, 2008). The eAG is not equivalent to a fasting glucose. Testing performed by: [address] [address] Blood 05/21/2024 3:03 PM COIL REWIND MACHINE OPERATOR 05/21/2024 3:05 PM COIL REWIND MACHINE OPERATOR Jenise Joyce NP LAB BLOOD ORDERABLES Final Re sult JARED [address] [facility] Department [place] [address] * Lipid panel (05/21/2024 3:03 PM COIL REWIND MACHINE OPERATOR) Cholesterol 167 30 - 199 mg/dL Comment: [...] last revised on 2017. Testing performed by: [facility], [address] [place] [address]., [address] Triglycerides 100 <=149 mg/dL JARED PÉREZ Comment: [...] last revised on 2017. Testing performed by: [facility], [address] [place] [address]., [address] HDL 44 >=40 mg/dL JARED PÉREZ Comment: [...] last revised on 2017. Testing performed by: [facility], [address] [place] [address]., [address] LDL, calculated 105 <=129 mg/dL JARED PÉREZ [...] last revised on 2023. Testing performed by: [facility], [address] [place] [address]., [address] Non-HDL Cholesterol 123 mg/dL JARED PÉREZ Comment: [...] last revised on 2017. Testing performed by: [address] [address] Chol/HDL ratio 4 JARED Comment:Testing performed by : [address] [address] Blood 05/21/2024 3:03 PM COIL REWIND MACHINE OPERATOR 05/21/2024 3:05 PM COIL REWIND MACHINE OPERATOR us Jenise Joyce NP LAB BLOOD ORDERABLES Final Re sult JARED [address] [facility] Department [place] [address] * Basic metabolic panel (05/21/2024 3:03 PM COIL REWIND MACHINE OPERATOR) Sodium 140 135 - 145 mmol/L Comment:Testing performed by : [address] [address] Potassium, pl 4.1 3.3 - 4.9 mmol/L JARED Comment:Testing performed by : [address] [address] Chloride 107 97 - 110 mmol/L JARED Comment:Testing performed by : [address] [address] CO2 24 22 - 32 mmol/L JARED Comment:Testing performed by : [address] [address] Anion gap 9 2 - 15 mmol/L JARED Comment:Testing performed by : [address] [address] BUN 12 6 - 25 mg/dL JARED Comment:Testing performed by : [address] [address] Creatinine 0.90 0.60 - 1.10 mg/dL JARED Comment:Testing performed by : [address] [address] Glucose 99 70 - 199 mg/dL JARED [...] was last revised 2022. Testing performed by: [facility], [address] [place] [address]., [address] Calcium 9.6 8.5 - 10.3 mg/dL JARED Comment:Testing performed by : [address] [address] Blood 05/21/2024 3:03 PM COIL REWIND MACHINE OPERATOR 05/21/2024 3:05 PM COIL REWIND MACHINE OPERATOR us Jenise Joyce NP LAB BLOOD ORDERABLES Final Re sult Performing Organization Address City/[facility] Co de Phone Number JARED [address] [facility] [place] [address] * CT Body Outside Reference (05/20/2024 12:00 AM COIL REWIND MACHINE OPERATOR) Narrative JENELLE_DAWITBETTE_MHB_MHE - 05/21/2024 4:53 PM COIL REWIND MACHINE OPERATOR This order has been auto-finalized and does not contain a result. us Provider Transcribed Order IMG CT PROCEDURES Fin al Result Performing Organization Address City/[facility] Co de Phone Number RAD_CLARIO_MHB_MHE from Last 3 Months Insurance [employer] SENIOR SUPPLEMENT MEDICARE [id number] MEDICARE ADVANTAGE [facility] Address: [address] [address] [place] [address] [facility] MEDICARE ADVANTAGE Advance Directives For more information, please contact: [phone] * Full Code (Latest Code Status on File) Date Activated Date Inactivated Comments 05/21/2024 3:27 PM 05/25/2024 7:46 PM Care Teams Commissioned Sales Associate Relationship Specialty Start Date End Date Johnie Ordaz MD PCP - General Internal Medicine 08/23/20
--- OUTSIDE RECORDS SUMMARY | 2024-08-13 19:12 | XMS_ITS | Continuity of Care Document ---
Author Organization [facility] Address [address] [place] [address] Phone Care Team Providers Care Plant Tender Name Role Phone Parra OD, Shaun Unavailable Unavailable Procedures Procedure Date Eye Exam & Treatment Eye Exam & Treatment Eye Exam & Treatment Refraction Advance Directives Directive Yes / No Effective Date File Name No Information Encounters Encounter Description Practice Location Reason(s) For Visit Diagnoses Date Provider Providers Copied on Encounter [facility], [address] [place] [address] [address], [place], [place], [id number], tel:[phone] [facility] [place] No Information 5-201 0 Parra OD Shaun. [address], [place], [place], [facility] [place]. tel:[phone] [facility], [address] [place] [address] [address], [place], [place], [id number], tel:[phone] [facility] [place] No Information 2-200 9 Parra OD Shaun. [address], [place], [address], [place]. tel:[phone] [facility], [address] [place] [address] [address], [place], [place], [id number], tel:[phone] [facility] [place] No Information Dec- 3-200 8 Parra OD Shaun. [address], [place], [place], [facility] [place]. tel:[phone] Family History Family Member Type Diagnosis Age At Onset No Information Payers Payer name Insurance type Covered green party ID Authoriza tikirsta(s) [place] [id number] Social History Type Description Quantity Date Captured [...]
--- OUTSIDE RECORDS SUMMARY | 2024-08-13 19:12 | XMS_ITS | Referral Summary ---
Author Organization 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 In addition she has an ongoing alarm security or surveillance monitor to screen for atrial fibrillation which [...] Tobacco: Never Tobacco Cessation:Counseling Given: Not Answered [facility] Utilities Answer Date Recorded In the past 12 months has [employer], or water [employer] threatened to shut off services in your [...] How often do you attend chur or synagogue services? Never 05/22/2024 Do you belong to any clubs o r organizations such as buddhism groups, unions, fraternal or athletic groups, or [...] any time in the past 12 m the rehabilitation institute, were you homeless or living in a longterm (including now)? No 05/22/2024 Personal Safety Answer Date Recorded Have you ever been in or are you currently in a harmful physical or emotional relationship or is someone making you feel afraid or unsafe? Denies 05/21/2024 Comments No Sex and Gender Information Value Date Recorded Sex Assigned at Not on file Legal Sex Female 8:13 PM CASSEROLE PREPARER Gender Identity Not on file Sexual Orientation Not on file Last Filed Vital Signs Vital Sign Reading Time Taken Comments Blood Pressure 120/60 07/10/2024 9:14 AM CDT Pulse 91 07/10/2024 9:14 AM CDT Temperature 36.3 C (97.3 F) 05/25/2024 11:34 AM CASSEROLE PREPARER Respiratory Rate 19 07/10/2024 9:14 AM CDT [...] Diagnosis Comments EGFR Routine 05/29/2024 6:03 AM CASSEROLE PREPARER BASIC METABOLIC PANEL Routine 05/29/2024 6:03 AM CASSEROLE PREPARER DIFFERENTIAL AUTO Routine 05/29/2024 6:0 3 AM CASSEROLE PREPARER CBC WITH AUTO DIFFERENTIAL Routine 05/29/2024 6:03 AM CASSEROLE PREPARER VITAMIN D 25 HYDROXY Routine 05/26/2024 6:13 AM CASSEROLE PREPARER PREALBUMIN Routine 05/26/2024 6:13 AM CASSEROLE PREPARER EGFR Routine 05/26/2024 6:13 AM CASSEROLE PREPARER VITAMIN B12 Routine 05/26/2024 6:13 AM CASSEROLE PREPARER COMPREHENSIVE METABOLIC PANEL Routine 05/26/2024 6:13 AM CASSEROLE PREPARER MAGNESIUM Routine 05/26/2024 6:13 AM CASSEROLE PREPARER PHOSPHORUS Routine 05/26/2024 6:13 AM CASSEROLE PREPARER POCT GLUCOSE DEVICE Routine 05/25/2024 1 2:22 PM CASSEROLE PREPARER POCT GLUCOSE DEVICE Routine 05/25/2024 7 :46 AM CASSEROLE PREPARER EGFR Routine 05/25/2024 6:01 AM CASSEROLE PREPARER DIFFERENTIAL AUTO Routine 05/25/2024 6:0 1 AM CASSEROLE PREPARER CBC WITH AUTO DIFFERENTIAL Routine 05/25/2024 6:01 AM CASSEROLE PREPARER BASIC METABOLIC PANEL Routine 05/25/2024 6:01 AM CASSEROLE PREPARER POCT GLUCOSE DEVICE Routine 05/24/2024 8 :32 PM CASSEROLE PREPARER POCT GLUCOSE DEVICE Routine 05/24/2024 5 :18 PM CASSEROLE PREPARER POCT GLUCOSE DEVICE Routine 05/24/2024 1 1:59 AM CASSEROLE PREPARER EGFR Routine 05/24/2024 7:58 AM CASSEROLE PREPARER DIFFERENTIAL AUTO Routine 05/24/2024 7:5 8 AM CASSEROLE PREPARER CBC WITH AUTO DIFFERENTIAL Routine 05/24/2024 7:58 AM CASSEROLE PREPARER BASIC METABOLIC PANEL Routine 05/24/2024 7:58 AM CASSEROLE PREPARER POCT GLUCOSE DEVICE Routine 05/24/2024 7 :42 AM CASSEROLE PREPARER POCT GLUCOSE DEVICE Routine 05/23/2024 9 :07 PM CASSEROLE PREPARER POCT GLUCOSE DEVICE Routine 05/23/2024 5 :55 PM CASSEROLE PREPARER POCT GLUCOSE DEVICE Routine 05/23/2024 1 1:06 AM CASSEROLE PREPARER POCT GLUCOSE DEVICE Routine 05/23/2024 8 :02 AM CASSEROLE PREPARER EGFR Routine 05/23/2024 5:34 AM CASSEROLE PREPARER DIFFERENTIAL AUTO Routine 05/23/2024 5:3 4 AM CASSEROLE PREPARER CBC WITH AUTO DIFFERENTIAL Routine 05/23/2024 5:34 AM CASSEROLE PREPARER BASIC METABOLIC PANEL Routine 05/23/2024 5:34 AM CASSEROLE PREPARER POCT GLUCOSE DEVICE Routine 05/22/2024 9 :13 PM CASSEROLE PREPARER CTA HEAD NECK W WO CONTRAST IP Routine 05/22/2024 8:04 PM CASSEROLE PREPARER POCT GLUCOSE DEVICE Routine 05/22/2024 6 :14 PM CASSEROLE PREPARER TRANSTHORACIC ECHO (TTE) COMPLETE W DOPPLER/CF W CONTRAST W BUBBLE Routine 05/22/2024 2:20 PM CASSEROLE PREPARER POCT GLUCOSE DEVICE Routine 05/22/2024 1 2:48 PM CASSEROLE PREPARER ECG 12-LEAD Routine 05/22/2024 10:35 AM CASSEROLE PREPARER US CAROTIDS DUPLEX BILATERAL IP Routine 05/22/2024 9:28 AM CASSEROLE PREPARER POCT GLUCOSE DEVICE Routine 05/22/2024 8 :56 AM CASSEROLE PREPARER VITAMIN D 25 HYDROXY Timed 05/22/2024 8:03 AM CASSEROLE PREPARER FOLATE Timed 05/22/2024 8:03 AM CASSEROLE PREPARER IRON PROFILE W/ IBC Timed 05/22/2024 8 :03 AM CASSEROLE PREPARER CRP (ACUTE PHASE) Routine 05/22/2024 5:5 2 AM CASSEROLE PREPARER MAGNESIUM Routine 05/22/2024 5:52 AM CASSEROLE PREPARER FERRITIN Routine 05/22/2024 5:52 AM CASSEROLE PREPARER EGFR Routine 05/22/2024 5:52 AM CASSEROLE PREPARER DIFFERENTIAL AUTO Routine 05/22/2024 5:5 2 AM CASSEROLE PREPARER CBC WITH AUTO DIFFERENTIAL Routine 05/22/2024 5:52 AM CASSEROLE PREPARER BASIC METABOLIC PANEL Routine 05/22/2024 5:52 AM CASSEROLE PREPARER POCT GLUCOSE DEVICE Routine 05/21/2024 7 :39 PM CASSEROLE PREPARER MRI BRAIN WO CONTRAST IP Routine 05/21/2024 6:[address] BODY OUTSIDE REFERENCE Routine 05/21/2024 4:[address] BODY OUTSIDE REFERENCE Routine 05/21/2024 4:46 PM CASSEROLE PREPARER POCT GLUCOSE DEVICE Routine 05/21/2024 4 :31 PM CASSEROLE PREPARER EGFR STAT 05/21/2024 3:03 PM CASSEROLE PREPARER DIFFERENTIAL AUTO STAT 05/21/2024 3:0 3 PM CASSEROLE PREPARER THYROID FUNCTION CASCADE Routine 05/21/2024 3:03 PM CASSEROLE PREPARER HEMOGLOBIN A1C STAT 05/21/2024 3:03 PM CASSEROLE PREPARER LIPID PANEL STAT 05/21/2024 3:03 PM CASSEROLE PREPARER BASIC METABOLIC PANEL STAT 05/21/2024 3:03 PM CASSEROLE PREPARER CBC WITH AUTO DIFFERENTIAL STAT 05/21/2024 3:[address] BODY OUTSIDE REFERENCE Routine 05/20/2024 12:00 AM CASSEROLE PREPARER from Last 3 Months Results * eGFR (05/29/2024 6:03 AM CASSEROLE PREPARER) eGFR 62 >=60 mL/min/1. 73 m2 JARED [...] was last reviewed 2021. Testing performed by: [address] [address] Blood 05/29/2024 6:03 AM CASSEROLE PREPARER 05/29/2024 8:14 AM CASSEROLE PREPARER us Notinfile Unknown LAB BLOOD ORDERABLES Final Res ult JARED [address] [facility] Department [place] [address] * Differential, auto (05/29/2024 6:03 AM CASSEROLE PREPARER) Neutrophil abs 5.4 1.5 - 6.5 K/cumm JARED Comment:Testing performed by : [address] [address] Imm gran abs 0.0 0.0 - 0.1 K/cumm JARED PÉREZ Comment:Testing performed by : [address] [address] Lymphocyte abs 1.6 0.8 - 3.3 K/cumm JARED Comment:Testing performed by : [address] [address] Monocyte abs 0.8 0.2 - 0.8 K/cumm [facility] Comment:Testing performed by : [address] [address] Eosinophil abs 0.1 0.0 - 0.5 K/cumm [facility] Comment:Testing performed by : [address] [address] Basophil abs 0.1 0.0 - 0.1 K/cumm [facility] Comment:Testing performed by : [address] [address] Neutrophil pct 67.6 % [facility] Comment: Interpretive Data Percent cell count reference ranges are not reported, since discordance with absolute values may lead to misinterpretation of CBC data. Current Interpretive Data was last revised on 2017. Testing performed by: [address] [address] Imm gran pct 0.4 % [facility] Comment: Interpretive Data Percent cell count reference ranges are not reported, since discordance with absolute values may lead to misinterpretation of CBC data. Current Interpretive Data was last revised on 2017. Testing performed by: [address] [address] Lymphocyte pct 19.4 % [facility] Comment: Interpretive Data Percent cell count reference ranges are not reported, since discordance with absolute values may lead to misinterpretation of CBC data. Current Interpretive Data was last revised on 2017. Testing performed by: [address] [address] Monocyte pct 9.4 % [facility] Comment: Interpretive Data Percent cell count reference ranges are not reported, since discordance with absolute values may lead to misinterpretation of CBC data. Current Interpretive Data was last revised on 2017. Testing performed by: [address] [address] Eosinophil pct 1.8 % [facility] Comment: Interpretive Data Percent cell count reference ranges are not reported, since discordance with absolute values may lead to misinterpretation of CBC data. Current Interpretive Data was last revised on 2017. Testing performed by: [address] [address] Basophil pct 1.4 % JARED PÉREZ Comment: Interpretive Data Percent cell count reference ranges are not reported, since discordance with absolute values may lead to misinterpretation of CBC data. Current Interpretive Data was last revised on 2017. Testing performed by: [address] [address] Blood 05/29/2024 6:03 AM CASSEROLE PREPARER 05/29/2024 8:14 AM CASSEROLE PREPARER us Notinfile Unknown LAB BLOOD ORDERABLES Final Res ult JARED PÉREZ [facility] Department [place] [address] * (ABNORMAL) CBC with auto differential (05/29/2024 6:03 AM CASSEROLE PREPARER) WBC 8.0 3.8 - 9.9 K/cumm JARED PÉREZ Comment:Testing performed by : [address] [address] Hgb 11.6(L) 11.9 - 15.5 g/dL JARED PÉREZ Comment:Testing performed by : [address] [address] Hct 36.8 35.6 - 45.5 % JARED PÉREZ Comment:Testing performed by : [address] [address] Plt 311 150 - 400 K/cumm JARED PÉREZ Comment:Testing performed by : [address] [address] MPV 9.6 9.1 - 12.3 fL JARED PÉREZ Comment:Testing performed by : [address] [address] RBC 4.75 3.90 - 5.20 M/cumm JARED PÉREZ Comment:Testing performed by : [address] [address] MCV 77.5(L) 81.3 - 96.4 fL JARED PÉREZ Comment:Testing performed by : [address] [address] MCH 24.4(L) 27.1 - 33.3 pg JARED PÉREZ Comment:Testing performed by : [address] [address] MCHC 31.5(L) 32.3 - 35.7 g/dL JARED PÉREZ Comment:Testing performed by : [address] [address] RDW CV 15.6(H) 11.1 - 14.9 % JARED PÉREZ Comment:Testing performed by : [address], [place]., [address] RDW SD 42.9 35.7 - 48.1 fL JARED PÉREZ Comment:Testing performed by : [address] [address] NRBC abs 0.00 0.00 - 0.01 K/cumm JARED PÉREZ Comment:Testing performed by : [address] [address] Blood 05/29/2024 6:03 AM CASSEROLE PREPARER 05/29/2024 8:14 AM CASSEROLE PREPARER us Notinfile Unknown LAB BLOOD ORDERABLES Final Res ult JARED PÉREZ [address] [place] [address] Department [place] [address] * (ABNORMAL) Basic metabolic panel (05/29/2024 6:03 AM CASSEROLE PREPARER) Sodium 138 135 - 145 mmol/L JARED PÉREZ Comment:Testing performed by : [address] [address] Potassium, pl 4.2 3.3 - 4.9 mmol/L AJRED PÉREZ Comment:Testing performed by : [address] [address] Chloride 108 97 - 110 mmol/L JARED PÉREZ Comment:Testing performed by : [address] [address] CO2 20(L) 22 - 32 mmol/L JARED PÉREZ Comment:Testing performed by : [address] [address] Anion gap 10 2 - 15 mmol/L JARED Comment:Testing performed by : [address] [address] BUN 13 6 - 25 mg/dL JARED Comment:Testing performed by : [address] [address] Creatinine 0.96 0.60 - 1.10 mg/dL JARED Comment:Testing performed by : [address] [address] Glucose 91 70 - 199 mg/dL JARED [...] was last revised 2022. Testing performed by: [address] [address] Calcium 10.0 8.5 - 10.3 mg/dL JARED Comment:Testing performed by : [address] [address] Blood 05/29/2024 6:03 AM CASSEROLE PREPARER 05/29/2024 8:14 AM CASSEROLE PREPARER us Notinfile Unknown LAB BLOOD ORDERABLES Final Res ult JARED [address] [facility] Department [place] [address] * eGFR (05/26/2024 6:13 AM CASSEROLE PREPARER) eGFR 78 >=60 mL/min/1. 73 m2 JARED [...] was last reviewed 2021. Testing performed by: [facility], [address] [place] [address]., [address] Blood 05/26/2024 6:13 AM CASSEROLE PREPARER 05/26/2024 8:39 AM CASSEROLE PREPARER us Notinfile Unknown LAB BLOOD ORDERABLES Final Res ult [address] [place] [address] * (ABNORMAL) Vitamin D 25 hydroxy (05/26/2024 6:13 AM CASSEROLE PREPARER) Vitamin D 25-OH 13.0(L) 30.0 - 80.0 ng/mL JARED Blood 05/26/2024 6:13 AM CASSEROLE PREPARER 05/26/2024 10:19 AM CASSEROLE PREPARER Notinfile Unknown LAB BLOOD ORDERABLES Final Res ult [address] [place] [address] * (ABNORMAL) Prealbumin (05/26/2024 6:13 AM CASSEROLE PREPARER) Prealbumin 13.2(L) 20.0 - 40.0 mg/dL JARED Comment:Specimen is Lipemic; results may be inaccurate due to high levels of lipids. Blood 05/26/2024 6:13 AM CASSEROLE PREPARER 05/26/2024 10:19 AM CASSEROLE PREPARER us Notinfile Unknown LAB BLOOD ORDERABLES Final Res ult Performing Organization Address City/[facility]/ZIP Co de Phone Number JARED [address] [address] * Phosphorus (05/26/2024 6:13 AM CASSEROLE PREPARER) Phosphorus, pl 4.1 2.3 - 4.5 mg/dL JARED Comment:Testing performed by : [address] [address] Blood 05/26/2024 6:13 AM CASSEROLE PREPARER 05/26/2024 8:39 AM CASSEROLE PREPARER us Notinfile Unknown LAB BLOOD ORDERABLES Final Res ult Performing Organization Address [facility] Co de Phone Number JARED [address] [address] * Magnesium (05/26/2024 6:13 AM CASSEROLE PREPARER) Magnesium 2.5 1.4 - 2.5 mg/dL JARED Comment:Testing performed by : [address] [address] Blood 05/26/2024 6:13 AM CASSEROLE PREPARER 05/26/2024 8:39 AM CASSEROLE PREPARER us Notinfile Unknown LAB BLOOD ORDERABLES Final Res ult Performing Organization Address [facility] de Phone Number JARED [address] [address] * Vitamin B12 (05/26/2024 6:13 AM CASSEROLE PREPARER) Vitamin B12 421 230 - 1,250 pg/mL JARED Comment:Testing performed by : [address] [address] Blood 05/26/2024 6:13 AM CASSEROLE PREPARER 05/26/2024 8:39 AM CASSEROLE PREPARER us Notinfile Unknown LAB BLOOD ORDERABLES Final Res ult [facility] [address] [facility] Department [place] [address] * (ABNORMAL) Comprehensive metabolic panel (05/26/2024 6:13 AM CASSEROLE PREPARER) Sodium 136 135 - 145 mmol/L JARED Comment:Testing performed by : [address] [address] Potassium, pl 4.4 3.3 - 4.9 mmol/L JARED Comment:Testing performed by : [address] [address] Chloride 105 97 - 110 mmol/L JARED Comment:Testing performed by : [address] [address] CO2 21(L) 22 - 32 mmol/L JARED Comment:Testing performed by : [address] [address] Anion gap 10 2 - 15 mmol/L JARED Comment:Testing performed by : [address] [address] BUN 15 6 - 25 mg/dL JARED Comment:Testing performed by : [address] [address] Creatinine 0.80 0.60 - 1.10 mg/dL JARED Comment:Testing performed by : [address] [address] Glucose 111 70 - 199 mg/dL JARED [...] was last revised 2022. Testing performed by: [address] [address] Calcium 10.4(H) 8.5 - 10.3 mg/dL JARED Comment:Testing performed by : [address] [address] Bilirubin, total 0.6 0.1 - 1.2 mg/dL JARED Comment:Testing performed by : [address] [address] Protein, pl 6.9 6.5 - 8.5 g/dL JARED Comment:Testing performed by : [address] [address] Albumin 3.8 3.5 - 5.0 g/dL JARED Comment:Testing performed by : [address] [address] Alk phos 92 40 - 130 Units/L JARED Comment:Testing performed by : [address] [address] ALT 8 7 - 45 Units/L JARED Comment:Testing performed by : [address] [address] AST 26 10 - 45 Units/L JARED Comment:Testing performed by : [address] [address] Blood 05/26/2024 6:13 AM CASSEROLE PREPARER 05/26/2024 8:39 AM CASSEROLE PREPARER us Notinfile Unknown LAB BLOOD ORDERABLES Final Res ult JARED PÉREZ [address] [facility] Department [place] [address] * POCT glucose (05/25/2024 12:22 PM CASSEROLE PREPARER) [facility] Signature Glucose, POC 146 70 - 199 mg/dL Comment:Testing performed by : [facility], [address] [place] [address]., [address] Glucose comment 1 Use This Result JARED Comment:Testing performed by : [address] [address] Glucose comment 2 RN/MD Notified JARED Comment:Testing performed by : [address] [address] Blood 05/25/2024 12:2 2 PM CASSEROLE PREPARER 05/25/2024 12:22 PM CASSEROLE PREPARER August Juan MD LAB POCT ORDERABLES - D EVICE Final Result Performing Organization Address [facility] Co de Phone Number JARED [address] [place] [address] * POCT glucose (05/25/2024 7:46 AM CASSEROLE PREPARER) [facility] Glucose, POC 97 70 - 199 mg/dL Comment:Testing performed by : [facility], [address] [place] [address]., [address] Glucose comment 1 Use This Result JARED Comment:Testing performed by : [address] [address] Glucose comment 2 RN/MD Notified JARED Comment:Testing performed by : [address] [address] Blood 05/25/2024 7:46 AM CASSEROLE PREPARER 05/25/2024 7:46 AM CASSEROLE PREPARER August Juan MD LAB POCT ORDERABLES - D EVICE Final Result Performing Organization Address City/[facility] Co de Phone Number [place] [id number] [facility] [place] [address] * eGFR (05/25/2024 6:01 AM CASSEROLE PREPARER) [facility] eGFR >90 >=60 mL/min/1. 73 m2 Comment: [...] was last reviewed 2021. Testing performed by: [address] [address] Blood 05/25/2024 6:01 AM CASSEROLE PREPARER 05/25/2024 6:27 AM CASSEROLE PREPARER us Jenise Joyce NP LAB BLOOD ORDERABLES Final Re sult JARED [facility] Department of Laboratories [place], [place] [id number] * Differential, auto (05/25/2024 6:01 AM CASSEROLE PREPARER) Neutrophil abs 5.6 1.5 - 6.5 K/cumm Comment:Testing performed by : [address] [address] Imm gran abs 0.0 0.0 - 0.1 K/cumm JARED Comment:Testing performed by : [address] [address] Lymphocyte abs 1.2 0.8 - 3.3 K/cumm JARED Comment:Testing performed by : [address] [address] Monocyte abs 0.7 0.2 - 0.8 K/cumm JARED Comment:Testing performed by : [address] [address] Eosinophil abs 0.2 0.0 - 0.5 K/cumm JARED Comment:Testing performed by : [address] [address] Basophil abs 0.1 0.0 - 0.1 K/ericm JARED Comment:Testing performed by : [address] [address] Neutrophil pct 72.0 % JARED Comment: Interpretive Data Percent cell count reference ranges are not reported, since discordance with absolute values may lead to misinterpretation of CBC data. Current Interpretive Data was last revised on 2017. Testing performed by: [address] [address] Imm gran pct 0.3 % JARED Comment: Interpretive Data Percent cell count reference ranges are not reported, since discordance with absolute values may lead to misinterpretation of CBC data. Current Interpretive Data was last revised on 2017. Testing performed by: [address] [address] Lymphocyte pct 15.7 % [facility] Comment: Interpretive Data Percent cell count reference ranges are not reported, since discordance with absolute values may lead to misinterpretation of CBC data. Current Interpretive Data was last revised on 2017. Testing performed by: [address] [address] Monocyte pct 8.5 % JARED Comment: Interpretive Data Percent cell count reference ranges are not reported, since discordance with absolute values may lead to misinterpretation of CBC data. Current Interpretive Data was last revised on 2017. Testing performed by: [address] [address] Eosinophil pct 2.2 % JARED Comment: Interpretive Data Percent cell count reference ranges are not reported, since discordance with absolute values may lead to misinterpretation of CBC data. Current Interpretive Data was last revised on 2017. Testing performed by: [address] [address] Basophil pct 1.3 % JARED Comment: Interpretive Data Percent cell count reference ranges are not reported, since discordance with absolute values may lead to misinterpretation of CBC data. Current Interpretive Data was last revised on 2017. Testing performed by: [address] [address] Blood 05/25/2024 6:01 AM CASSEROLE PREPARER 05/25/2024 6:27 AM CASSEROLE PREPARER us Jenise Joyce NP LAB BLOOD ORDERABLES Final Re sult [facility] [address] [facility] Department [place] [address] * (ABNORMAL) CBC with auto differential (05/25/2024 6:01 AM CASSEROLE PREPARER) WBC 7.8 3.8 - 9.9 K/cumm Comment:Testing performed by : [address] [address] Hgb 11.9 11.9 - 15.5 g/dL JARED Comment:Testing performed by : [address] [address] Hct 37.4 35.6 - 45.5 % JARED Comment:Testing performed by : [address] [address] Plt 315 150 - 400 K/cumm JARED Comment:Testing performed by : [address] [address] MPV 9.8 9.1 - 12.3 fL JARED Comment:Testing performed by : [address] [address] RBC 4.93 3.90 - 5.20 M/cumm JARED Comment:Testing performed by : [address] [address] MCV 75.9(L) 81.3 - 96.4 fL JARED PÉREZ Comment:Testing performed by : [address] [address] MCH 24.1(L) 27.1 - 33.3 pg JARED PÉREZ Comment:Testing performed by : [address] [address] MCHC 31.8(L) 32.3 - 35.7 g/dL JARED PÉREZ Comment:Testing performed by : [address] [address] RDW CV 15.1(H) 11.1 - 14.9 % JARED PÉREZ Comment:Testing performed by : [address] [address] RDW SD 41.2 35.7 - 48.1 fL JARED PÉREZ Comment:Testing performed by : [address] [address] NRBC abs 0.00 0.00 - 0.01 K/cumm JARED PÉREZ Comment:Testing performed by : [address] [address] Blood 05/25/2024 6:01 AM CASSEROLE PREPARER 05/25/2024 6:27 AM CASSEROLE PREPARER Jenise Joyce NP LAB BLOOD ORDERABLES Final Re sult Performing Organization Address City/State/[facility] Co de Phone Number JARED PÉREZ [address] [place] [address] Department [place] [address] * Basic metabolic panel (05/25/2024 6:01 AM CASSEROLE PREPARER) Sodium 136 135 - 145 mmol/L Comment:Testing performed by : [address] [address] Potassium, pl 4.3 3.3 - 4.9 mmol/L JARED PÉREZ Comment:Testing performed by : [address] [address] Chloride 104 97 - 110 mmol/L JARED PÉREZ Comment:Testing performed by : [address] [address] CO2 22 22 - 32 mmol/L JARED PÉREZ Comment:Testing performed by : [address] [address] Anion gap 10 2 - 15 mmol/L JARED PÉREZ Comment:Testing performed by : [address] [address] BUN 12 6 - 25 mg/dL JARED PÉREZ Comment:Testing performed by : [address] [address] Creatinine 0.70 0.60 - 1.10 mg/dL JARED Comment:Testing performed by : [address] [address] Glucose 102 70 - 199 mg/dL JARED [...] was last revised 2022. Testing performed by: [address] [address] Calcium 10.2 8.5 - 10.3 mg/dL JARED Comment:Testing performed by : [address] [address] Blood 05/25/2024 6:01 AM CASSEROLE PREPARER 05/25/2024 6:27 AM CASSEROLE PREPARER Jenise Joyce NP LAB BLOOD ORDERABLES Final Re sult [facility] [address] [facility] Department [place] [address] * POCT glucose (05/24/2024 8:32 PM CASSEROLE PREPARER) [facility] [facility] Glucose, POC 107 70 - 199 mg/dL Comment:Testing performed by : [address] [address] Glucose comment 1 Use This Result JARED PÉREZ Comment:Testing performed by : [address] [address] Blood 05/24/2024 8:32 PM CASSEROLE PREPARER 05/24/2024 8:32 PM CASSEROLE PREPARER us August Juan MD LAB POCT ORDERABLES - D EVICE Final Result Performing Organization Address [facility] de Phone Number JARED [address] [place] [address] * POCT glucose (05/24/2024 5:18 PM CASSEROLE PREPARER) Glucose, POC 103 70 - 199 mg/dL Comment:Testing performed by : [address] [address] Glucose comment 1 Use This Result JARED Comment:Testing performed by : [address] [address] Glucose comment 2 RN/MD Notified JARED Comment:Testing performed by : [address] [address] Blood 05/24/2024 5:18 PM CASSEROLE PREPARER 05/24/2024 5:18 PM CASSEROLE PREPARER August Juan MD LAB POCT ORDERABLES - D EVICE Final Result Performing Organization Address [facility] de Phone Number [address] [address] * POCT glucose (05/24/2024 11:59 AM CASSEROLE PREPARER) Glucose, POC 171 70 - 199 mg/dL Comment:Testing performed by : [address] [address] Glucose comment 1 Use This Result JARED Comment:Testing performed by : [address] [address] Glucose comment 2 RN/MD Notified JARED Comment:Testing performed by : [address] [address] Blood 05/24/2024 11:5 9 AM CASSEROLE PREPARER 05/24/2024 11:59 AM CASSEROLE PREPARER August Juan MD LAB POCT ORDERABLES - D EVICE Final Result Performing Organization Address City/[facility] Co de Phone Number JARED [facility]0 [facility] [address] * eGFR (05/24/2024 7:58 AM CASSEROLE PREPARER) eGFR 77 >=60 mL/min/1. 73 m2 Comment: [...] was last reviewed 2021. Testing performed by: [address] [address] Blood 05/24/2024 7:58 AM CASSEROLE PREPARER 05/24/2024 9:06 AM CASSEROLE PREPARER us Jenise Joyce NP LAB BLOOD ORDERABLES Final Re sult [place] [id number] [facility] [place] [address] * Differential, auto (05/24/2024 7:58 AM CASSEROLE PREPARER) Pathologist [facility] Neutrophil abs 5.0 1.5 - 6.5 K/cumm Comment:Testing performed by : [address] [address] Imm gran abs 0.0 0.0 - 0.1 K/cumm JARED PÉREZ Comment:Testing performed by : [address] [address] Lymphocyte abs 1.2 0.8 - 3.3 K/cumm JARED PÉREZ Comment:Testing performed by : [address] [address] Monocyte abs 0.5 0.2 - 0.8 K/cumm [facility] Comment:Testing performed by : [address] [address] Eosinophil abs 0.1 0.0 - 0.5 K/cumm [facility] Comment:Testing performed by : [address] [address] Basophil abs 0.1 0.0 - 0.1 K/cumm [facility] Comment:Testing performed by : [address] [address] Neutrophil pct 71.8 % [facility] Comment: Interpretive Data Percent cell count reference ranges are not reported, since discordance with absolute values may lead to misinterpretation of CBC data. Current Interpretive Data was last revised on 2017. Testing performed by: [address] [address] Imm gran pct 0.4 % [facility] Comment: Interpretive Data Percent cell count reference ranges are not reported, since discordance with absolute values may lead to misinterpretation of CBC data. Current Interpretive Data was last revised on 2017. Testing performed by: [address] [address] Lymphocyte pct 16.8 % [facility] Comment: Interpretive Data Percent cell count reference ranges are not reported, since discordance with absolute values may lead to misinterpretation of CBC data. Current Interpretive Data was last revised on 2017. Testing performed by: [address] [address] Monocyte pct 7.8 % [facility] Comment: Interpretive Data Percent cell count reference ranges are not reported, since discordance with absolute values may lead to misinterpretation of CBC data. Current Interpretive Data was last revised on 2017. Testing performed by: [address] [address] Eosinophil pct 1.9 % [facility] Comment: Interpretive Data Percent cell count reference ranges are not reported, since discordance with absolute values may lead to misinterpretation of CBC data. Current Interpretive Data was last revised on 2017. Testing performed by: [address] [address] Basophil pct 1.3 % JARED PÉREZ Comment: Interpretive Data Percent cell count reference ranges are not reported, since discordance with absolute values may lead to misinterpretation of CBC data. Current Interpretive Data was last revised on 2017. Testing performed by: [address] [address] Blood 05/24/2024 7:58 AM CASSEROLE PREPARER 05/24/2024 9:08 AM CASSEROLE PREPARER us Jenise Joyce NP LAB BLOOD ORDERABLES Final Re sult JARED [address] [facility] Department [place] [address] * (ABNORMAL) CBC with auto differential (05/24/2024 7:58 AM CASSEROLE PREPARER) Pathologist [facility] WBC 7.0 3.8 - 9.9 K/cumm Comment:Testing performed by : [address] [address] Hgb 12.1 11.9 - 15.5 g/dL JARED PÉREZ Comment:Testing performed by : [address] [address] Hct 37.8 35.6 - 45.5 % JARED PÉREZ Comment:Testing performed by : [address] [address] Plt 318 150 - 400 K/cumm JARED Comment:Testing performed by : [address] [address] MPV 9.4 9.1 - 12.3 fL JARED PÉREZ Comment:Testing performed by : [address] [address] RBC 4.92 3.90 - 5.20 M/cumm JARED PÉREZ Comment:Testing performed by : [address] [address] MCV 76.8(L) 81.3 - 96.4 fL JARED PÉREZ Comment:Testing performed by : [address] [address] MCH 24.6(L) 27.1 - 33.3 pg JARED PÉREZ Comment:Testing performed by : [address] [address] MCHC 32.0(L) 32.3 - 35.7 g/dL JARED PÉREZ Comment:Testing performed by : [address] [address] RDW CV 15.2(H) 11.1 - 14.9 % JARED PÉREZ Comment:Testing performed by : [address] [address] RDW SD 41.7 35.7 - 48.1 fL JARED PÉREZ Comment:Testing performed by : [address] [address] NRBC abs 0.00 0.00 - 0.01 K/cumm JARED Comment:Testing performed by : [address] [address] Blood 05/24/2024 7:58 AM CASSEROLE PREPARER 05/24/2024 9:08 AM CASSEROLE PREPARER Jenise Joyce NP LAB BLOOD ORDERABLES Final Re sult JARED [address] [facility] Department [place] [address] * (ABNORMAL) Basic metabolic panel (05/24/2024 7:58 AM CASSEROLE PREPARER) Sodium 136 135 - 145 mmol/L Comment:Testing performed by : [address] [address] Potassium, pl 4.7 3.3 - 4.9 mmol/L JARED PÉREZ Comment: Hemolyzed; Potassium value may be falsely elevated by as much as 1.0 mmol/L. Suggest redraw and reanalysis. Testing performed by: [address] [address] Chloride 106 97 - 110 mmol/L JARED PÉREZ Comment:Testing performed by : [address] [address] CO2 20(L) 22 - 32 mmol/L JARED Comment:Testing performed by : [address] [address] Anion gap 10 2 - 15 mmol/L JARED Comment:Testing performed by : [address] [address] BUN 14 6 - 25 mg/dL JARED Comment:Testing performed by : [address] [address] Creatinine 0.81 0.60 - 1.10 mg/dL JARED Comment:Testing performed by : [address] [address] Glucose 99 70 - 199 mg/dL JARED [...] was last revised 2022. Testing performed by: [address] [address] Calcium 9.9 8.5 - 10.3 mg/dL JARED Comment:Testing performed by : [address] [address] Blood 05/24/2024 7:58 AM CASSEROLE PREPARER 05/24/2024 9:06 AM CASSEROLE PREPARER us Jenise Joyce NP LAB BLOOD ORDERABLES Final Re sult JARED PÉREZ [address] [facility] Department of Laboratories [place], [place] [id number] * POCT glucose (05/24/2024 7:42 AM CASSEROLE PREPARER) Glucose, POC 99 70 - 199 mg/dL Comment:Testing performed by : [address] [address] Glucose comment 1 Use This Result JARED PÉREZ Comment:Testing performed by : [address] [address] Glucose comment 2 RN/MD Notified JARED Comment:Testing performed by : [address] [address] Blood 05/24/2024 7:42 AM CASSEROLE PREPARER 05/24/2024 7:42 AM CASSEROLE PREPARER August Juan MD LAB POCT ORDERABLES - D EVICE Final Result Performing Organization Address City/[facility] Co de Phone Number JARED [facility]2 [facility] [place] [address] * POCT glucose (05/23/2024 9:07 PM CASSEROLE PREPARER) [facility] Signature Glucose, POC 164 70 - 199 mg/dL Comment:Testing performed by : [address] [address] Glucose comment 1 Use This Result JARED PÉREZ Comment:Testing performed by : [address] [address] Glucose comment 2 RN/MD Notified JARED Comment:Testing performed by : [address] [address] Blood 05/23/2024 9:07 PM CASSEROLE PREPARER 05/23/2024 9:07 PM CASSEROLE PREPARER August Juan MD LAB POCT ORDERABLES - D EVICE Final Result Performing Organization Address City/[facility]/ZIP Co de Phone Number JARED [address] [place] [address] * POCT glucose (05/23/2024 5:55 PM CASSEROLE PREPARER) Glucose, POC 97 70 - 199 mg/dL Comment:Testing performed by : [address] [address] Glucose comment 1 Use This Result JARED Comment:Testing performed by : [address] [address] Glucose comment 2 RN/MD Notified JARED Comment:Testing performed by : [address] [address] Blood 05/23/2024 5:55 PM CASSEROLE PREPARER 05/23/2024 5:55 PM CASSEROLE PREPARER August Juan MD LAB POCT ORDERABLES - D EVICE Final Result Performing Organization Address [facility] Co de Phone Number JARED [facility]0 [facility] [place] [address] * POCT glucose (05/23/2024 11:06 AM CASSEROLE PREPARER) Glucose, POC 191 70 - 199 mg/dL Comment:Testing performed by : [address] [address] Glucose comment 1 Use This Result JARED Comment:Testing performed by : [address] [address] Glucose comment 2 RN/MD Notified JARED Comment:Testing performed by : [address] [address] Blood 05/23/2024 11:0 6 AM CASSEROLE PREPARER 05/23/2024 11:06 AM CASSEROLE PREPARER August Juan MD LAB POCT ORDERABLES - D EVICE Final Result Performing Organization Address [facility] Co de Phone Number [place] [address] [facility] [place] [address] * POCT glucose (05/23/2024 8:02 AM CASSEROLE PREPARER) Glucose, POC 109 70 - 199 mg/dL Comment:Testing performed by : [address] [address] Glucose comment 1 Use This Result JARED Comment:Testing performed by : [address] [place] [address] Glucose comment 2 RN/MD Notified JARED Comment:Testing performed by : [facility], [address] [place] [address]., [address] Blood 05/23/2024 8:02 AM CASSEROLE PREPARER 05/23/2024 8:02 AM CASSEROLE PREPARER us August Juan MD LAB POCT ORDERABLES - D EVICE Final Result Performing Organization Address [facility] Co de Phone Number JARED [address] [place] [address] * eGFR (05/23/2024 5:34 AM CASSEROLE PREPARER) eGFR >90 >=60 mL/min/1. 73 m2 Comment: [...] was last reviewed 2021. Testing performed by: [facility], [address] [place] [address]., [address] Blood 05/23/2024 5:34 AM CASSEROLE PREPARER 05/23/2024 6:19 AM CASSEROLE PREPARER us Jenise Joyce NP LAB BLOOD ORDERABLES Final Re sult Performing Organization Address City/[facility]/ZIP Co de Phone Number PETR[address] [place] [address] * Differential, auto (05/23/2024 5:34 AM CASSEROLE PREPARER) Neutrophil abs 5.5 1.5 - 6.5 K/cumm Comment:Testing performed by : [address] [address] Imm gran abs 0.1 0.0 - 0.1 K/cumm [facility] Comment:Testing performed by : [address] [address] Lymphocyte abs 1.6 0.8 - 3.3 K/cumm [facility] Comment:Testing performed by : [address] [address] Monocyte abs 0.8 0.2 - 0.8 K/cumm [facility] Comment:Testing performed by : [address] [address] Eosinophil abs 0.2 0.0 - 0.5 K/cumm [facility] Comment:Testing performed by : [address] [address] Basophil abs 0.1 0.0 - 0.1 K/cumm [facility] Comment:Testing performed by : [address] [address] Neutrophil pct 66.9 % [facility] Comment: Interpretive Data Percent cell count reference ranges are not reported, since discordance with absolute values may lead to misinterpretation of CBC data. Current Interpretive Data was last revised on 2017. Testing performed by: [address] [address] Imm gran pct 1.1 % [facility] Comment: Interpretive Data Percent cell count reference ranges are not reported, since discordance with absolute values may lead to misinterpretation of CBC data. Current Interpretive Data was last revised on 2017. Testing performed by: [address] [address] Lymphocyte pct 19.0 % [facility] Comment: Interpretive Data Percent cell count reference ranges are not reported, since discordance with absolute values may lead to misinterpretation of CBC data. Current Interpretive Data was last revised on 2017. Testing performed by: [address] [address] Monocyte pct 9.6 % JARED Comment: Interpretive Data Percent cell count reference ranges are not reported, since discordance with absolute values may lead to misinterpretation of CBC data. Current Interpretive Data was last revised on 2017. Testing performed by: [address] [address] Eosinophil pct 2.1 % JARED Comment: Interpretive Data Percent cell count reference ranges are not reported, since discordance with absolute values may lead to misinterpretation of CBC data. Current Interpretive Data was last revised on 2017. Testing performed by: [address] [address] Basophil pct 1.3 % JARED Comment: Interpretive Data Percent cell count reference ranges are not reported, since discordance with absolute values may lead to misinterpretation of CBC data. Current Interpretive Data was last revised on 2017. Testing performed by: [address] [address] Blood 05/23/2024 5:34 AM CASSEROLE PREPARER 05/23/2024 6:19 AM CASSEROLE PREPARER us Jenise Joyce NP LAB BLOOD ORDERABLES Final Re sult JARED [address] [facility] Department of Laboratories [place], [place] [id number] * (ABNORMAL) CBC with auto differential (05/23/2024 5:34 AM CASSEROLE PREPARER) Pathologist [facility] WBC 8.2 3.8 - 9.9 K/cumm Comment:Testing performed by : [address] [address] Hgb 11.9 11.9 - 15.5 g/dL JARED PÉREZ Comment:Testing performed by : [address] [address] Hct 37.9 35.6 - 45.5 % JARED PÉREZ Comment:Testing performed by : [address] [address] Plt 295 150 - 400 K/cumm JARED PÉREZ Comment:Testing performed by : [address] [address] MPV 9.4 9.1 - 12.3 fL JARED PÉREZ Comment:Testing performed by : [address] [address] RBC 4.95 3.90 - 5.20 M/cumm JARED PÉREZ Comment:Testing performed by : [address] [address] MCV 76.6(L) 81.3 - 96.4 fL JARED Comment:Testing performed by : [address] [address] MCH 24.0(L) 27.1 - 33.3 pg JARED Comment:Testing performed by : [address] [address] MCHC 31.4(L) 32.3 - 35.7 g/dL JARED Comment:Testing performed by : [address] [address] RDW CV 15.3(H) 11.1 - 14.9 % JARED Comment:Testing performed by : [address] [address] RDW SD 42.3 35.7 - 48.1 fL JARED Comment:Testing performed by : [address] [address] NRBC abs 0.00 0.00 - 0.01 K/cumm JARED Comment:Testing performed by : [address] [address] Blood 05/23/2024 5:34 AM CASSEROLE PREPARER 05/23/2024 6:19 AM CASSEROLE PREPARER Jenise Joyce NP LAB BLOOD ORDERABLES Final Re sult JARED [address] [facility] Department of Laboratories [place], [place] [id number] * (ABNORMAL) Basic metabolic panel (05/23/2024 5:34 AM CASSEROLE PREPARER) Sodium 138 135 - 145 mmol/L Comment:Testing performed by : [address], [place]., [address] Potassium, pl 4.1 3.3 - 4.9 mmol/L JARED Comment:Testing performed by : [address], [place]., [address] Chloride 107 97 - 110 mmol/L JARED Comment:Testing performed by : [address], [place]., [address] CO2 20(L) 22 - 32 mmol/L JARED Comment:Testing performed by : [address], [place]., [address] Anion gap 11 2 - 15 mmol/L JARED Comment:Testing performed by : [address], [place]., [address] BUN 13 6 - 25 mg/dL JARED Comment:Testing performed by : [address], [place]., [address] Creatinine 0.70 0.60 - 1.10 mg/dL JARED Comment:Testing performed by : [address], [place]., [address] Glucose 106 70 - 199 mg/dL JARED [...] was last revised 2022. Testing performed by: [address] [address] Calcium 9.7 8.5 - 10.3 mg/dL JARED Comment:Testing performed by : [address], [place]., [address] Blood 05/23/2024 5:34 AM CASSEROLE PREPARER 05/23/2024 6:19 AM CASSEROLE PREPARER us Jenise Joyce NP LAB BLOOD ORDERABLES Final Re sult Performing Organization Address [facility] Co de Phone Number JARED [address] [place] [address] * POCT glucose (05/22/2024 9:13 PM CASSEROLE PREPARER) [facility] Signature Glucose, POC 171 70 - 199 mg/dL Comment:Testing performed by : [facility], [address] [place] [address]., [address] Glucose comment 1 Use This Result JARED Comment:Testing performed by : [address] [address] Blood 05/22/2024 9:13 PM CASSEROLE PREPARER 05/22/2024 9:13 PM CASSEROLE PREPARER Christiano Cummins MD LAB POCT ORDERABLES - DEVICE Final Result Performing Organization Address [facility] Co de Phone Number JARED [facility] [place] [address] * CTA Head Neck W WO Contrast (05/22/2024 8:04 PM CASSEROLE PREPARER) Anatomical Region Laterality Modality Head and Neck N/A Computed Tomogra phy 05/22/2024 10:1 0 PM CASSEROLE PREPARER Narrative 05/22/2024 10:25 PM CASSEROLE PREPARER EXAM DESCRIPTION: CTA HEAD NECK W WO [...] thickening. ORBITS: No significant abnormality. INTRACRANIAL VESSELS [place]: The posterior communicating arteries are not well visualized bilaterally. The oekdab-gk-Lxahpk is otherwise intact. ANTERIOR CIRCULATION: There is [...] by Duyen Bautista M.D. SN: Report ID: [id number] Reading Location: [id number] Procedure Note Duyen Bautista MD - 05/22/2024 [...] thickening. ORBITS: No significant abnormality. INTRACRANIAL VESSELS [place]: The posterior communicating arteries are not wellvisualized bilaterally. The qawzqv-wn-Lccpeu is otherwise intact. ANTERIOR CIRCULATION: There is [...] by Duyen Bautista M.D. SN: Report ID: [id number] Reading Location: [id number] us Amita Bledsoe MD IMG CT PROCEDURES Fin al Result * POCT glucose (05/22/2024 6:14 PM CASSEROLE PREPARER) [facility] Glucose, POC 90 70 - 199 mg/dL Comment:Testing performed by : [facility], [address] [place] [address]., [address] Glucose comment 1 Use This Result JARED PÉREZ Comment:Testing performed by : [address] [address] Glucose comment 2 RN/MD Notified JARED PÉREZ Comment:Testing performed by : [address] [address] Blood 05/22/2024 6:14 PM CASSEROLE PREPARER 05/22/2024 6:14 PM CASSEROLE PREPARER Christiano Cummins MD LAB POCT ORDERABLES - DEVICE Final Result Performing Organization Address City/State/[facility] Co de Phone Number JARED [address] [facility] Department of Laboratories [place], [place] [id number] * TRANSTHORACIC ECHO (TTE) COMPLETE W DOPPLER/CF W CONTRAST W BUBBLE (05/22/2024 2:20 PM CASSEROLE PREPARER) Anatomical Region Laterality Modality Ultrasound 05/22/2024 1:27 PM CASSEROLE PREPARER Narrative 05/23/2024 11:17 AM CASSEROLE PREPARER Adult Echocardiogram + ----- + :Name: PINKY YAO Study Date: 05/22/2024 Status: MHE : : Patient Location: [address]^[id number]^MHeit: 65 in : : Weight: 170 lbBP: [...] bubble study shows no evidence of intracardiac akfuo-cz-utgl shunting, i.e. no evidence of patent foramen [...] bubble study shows no evidence of intracardiac mplbm-px-jbbh shunting, i.e. no evidence of patent foramen [...] Date: 05/22/2024Status: MHE : : Patient Location: [address]^[id number]^MHeight: 65 in : : : 170 lbBP: [...] bubble study shows no evidence of intracardiac haaje-ok-fhll shunting,i.e. no evidence of patent foramen ovale [...] bubble study shows no evidence of intracardiac hdbgy-ni-wsbm shunting,i.e. no evidence of patent foramen ovale [...] lt * POCT glucose (05/22/2024 12:48 PM CASSEROLE PREPARER) [facility] Glucose, POC 172 70 - 199 mg/dL Comment:Testing performed by : [address] [address] Glucose comment 1 Use This Result JARED PÉREZ Comment:Testing performed by : [address] [address] Glucose comment 2 RN/ Notified JARED PÉREZ Comment:Testing performed by : [address] [address] Blood 05/22/2024 12:4 8 PM CASSEROLE PREPARER 05/22/2024 12:48 PM CASSEROLE PREPARER Christiano Cummins MD LAB POCT ORDERABLES - DEVICE Final Result JARED [address] [facility] Department [place] [address] * ECG 12 lead (05/22/2024 10:35 AM CASSEROLE PREPARER) Pathologist [facility] Ventricular Rate EKG/Min 70 BPM [facility] Atrial Rate 70 BPM [facility] HI-Interval (MSEC) 210 ms [facility] QRS-Interval (MSEC) 92 ms [facility] QT-Interval (MSEC) 412 ms [facility] QTc 444 ms [facility] P [place] 39 degrees [facility] R [place] -9 degrees [facility] T [place] -3 degrees [facility] Diagnosis Sinus rhythm with 1st degree A-V block Moderate voltage criteria for LVH, may be normal variant Inferior infarct , age undetermined Abnormal ECG No previous ECGs available Confirmed by ASPEN RAHMAN M.D. ([id number]) on 05/23/2024 7:37:36 AM [facility] 05/22/2024 10:3 5 AM CASSEROLE PREPARER 05/23/2024 7:37 AM CASSEROLE PREPARER Jenise Joyce NP ECG ORDERABLES Final Result Performing Organization Address [facility] Co de Phone Number [facility] * US Carotids Duplex Bilateral (05/22/2024 9:28 AM CASSEROLE PREPARER) Anatomical Region Laterality Modality Vascular Bilateral Ultrasound 05/22/2024 Narrative 05/26/2024 7:36 AM CASSEROLE PREPARER [employer] Job ID: [id number] [employer] Document ID: [id number] Dictated date/time: [id number] BILATERAL CAROTID DUPLEX REASON FOR EXAM Stroke. [...] internal carotid arteries. Job ID/Internal Job ID: [id number] us Jenise Joyce WOM[employer]S [employer]MENT [employer]TER IMG US PROCEDURES Final Resul t * POCT glucose (05/22/2024 8:56 AM CASSEROLE PREPARER) Glucose, POC 105 70 - 199 mg/dL Comment:Testing performed by : [address] [address] Glucose comment 1 Use This Result JARED Comment:Testing performed by : [address], [address] Glucose comment 2 RN/MD Notified JARED PÉREZ Comment:Testing performed by : [address] [address] Blood 05/22/2024 8:56 AM CASSEROLE PREPARER 05/22/2024 8:56 AM CASSEROLE PREPARER Christiano Cummins MD LAB POCT ORDERABLES - DEVICE Final Result [facility] [address] [facility] Department [place] [address] * (ABNORMAL) Iron profile w/ IBC (05/22/2024 8:03 AM CASSEROLE PREPARER) Pathologist [facility] Iron 46 35 - 145 mcg/dL Comment:Testing performed by : [address] [address] TIBC 319 250 - 400 mcg/dL JARED Comment:Testing performed by : [address] [address] Transferrin saturation 14(L) 20 - 50 % JARED Comment:Testing performed by : [address] [address] Blood 05/22/2024 8:03 AM CASSEROLE PREPARER 05/22/2024 9:04 AM CASSEROLE PREPARER Christiano Cummins MD LAB BLOOD ORDERABLES Final R esult Performing Organization Address City/[facility] Co de Phone Number JARED [address] [place] [address] * (ABNORMAL) Vitamin D 25 hydroxy (05/22/2024 8:03 AM CASSEROLE PREPARER) [facility] Vitamin D 25-OH 9.0(L) 30.0 - 80.0 ng/mL Blood 05/22/2024 8:03 AM CASSEROLE PREPARER 05/22/2024 12:51 PM CASSEROLE PREPARER Christiano Cummins MD LAB BLOOD ORDERABLES Final R esult Performing Organization Address [facility] Co de Phone Number PETR[address] [address] * Folate (05/22/2024 8:03 AM CASSEROLE PREPARER) [facility] Folic acid 6.0 >=5.0 ng/mL Comment:Testing performed by : [facility], [address] [place] [address], [address] Blood 05/22/2024 8:03 AM CASSEROLE PREPARER 05/22/2024 9:04 AM CASSEROLE PREPARER Christiano Cummins MD LAB BLOOD ORDERABLES Final R [facility] Performing Organization Address [facility] Co de Phone Number [address] [place] [address] * eGFR (05/22/2024 5:52 AM CASSEROLE PREPARER) [facility] eGFR >90 >=60 mL/min/1. 73 m2 Comment: [...] was last reviewed 2021. Testing performed by: [address] [address] Blood 05/22/2024 5:52 AM CASSEROLE PREPARER 05/22/2024 6:01 AM CASSEROLE PREPARER us Jenise Joyce NP LAB BLOOD ORDERABLES Final Re sult JARED [address] [facility] Department [place] [address] * Differential, auto (05/22/2024 5:52 AM CASSEROLE PREPARER) Neutrophil abs 5.2 1.5 - 6.5 K/cumm Comment:Testing performed by : [address] [address] Imm gran abs 0.0 0.0 - 0.1 K/cumm JARED Comment:Testing performed by : [address] [address] Lymphocyte abs 1.3 0.8 - 3.3 K/cumm JARED Comment:Testing performed by : [address] [address] Monocyte abs 0.7 0.2 - 0.8 K/cumm JARED Comment:Testing performed by : [address] [address] Eosinophil abs 0.1 0.0 - 0.5 K/cumm JARED Comment:Testing performed by : [address] [address] Basophil abs 0.1 0.0 - 0.1 K/cumm JARED Comment:Testing performed by : [address] [address] Neutrophil pct 70.2 % [facility] Comment: Interpretive Data Percent cell count reference ranges are not reported, since discordance with absolute values may lead to misinterpretation of CBC data. Current Interpretive Data was last revised on 2017. Testing performed by: [address] [address] Imm gran pct 0.3 % [facility] Comment: Interpretive Data Percent cell count reference ranges are not reported, since discordance with absolute values may lead to misinterpretation of CBC data. Current Interpretive Data was last revised on 2017. Testing performed by: [address] [address] Lymphocyte pct 17.7 % [facility] Comment: Interpretive Data Percent cell count reference ranges are not reported, since discordance with absolute values may lead to misinterpretation of CBC data. Current Interpretive Data was last revised on 2017. Testing performed by: [address] [address] Monocyte pct 8.8 % [facility] Comment: Interpretive Data Percent cell count reference ranges are not reported, since discordance with absolute values may lead to misinterpretation of CBC data. Current Interpretive Data was last revised on 2017. Testing performed by: [address] [address] Eosinophil pct 1.8 % [facility] Comment: Interpretive Data Percent cell count reference ranges are not reported, since discordance with absolute values may lead to misinterpretation of CBC data. Current Interpretive Data was last revised on 2017. Testing performed by: [address] [address] Basophil pct 1.2 % [facility] Comment: Interpretive Data Percent cell count reference ranges are not reported, since discordance with absolute values may lead to misinterpretation of CBC data. Current Interpretive Data was last revised on 2017. Testing performed by: [address] [address] Blood 05/22/2024 5:52 AM CASSEROLE PREPARER 05/22/2024 6:01 AM CASSEROLE PREPARER us Jenise Joyce NP LAB BLOOD ORDERABLES Final Re sult JARED [address] [facility] Department of Laboratories [place], [place] [id number] * (ABNORMAL) CBC with auto differential (05/22/2024 5:52 AM CASSEROLE PREPARER) WBC 7.4 3.8 - 9.9 K/cumm Comment:Testing performed by : [address] [address] Hgb 11.6(L) 11.9 - 15.5 g/dL JARED Comment:Testing performed by : [address] [address] Hct 37.4 35.6 - 45.5 % JARED Comment:Testing performed by : [address] [address] Plt 278 150 - 400 K/cumm JARED Comment:Testing performed by : [address] [address] MPV 9.2 9.1 - 12.3 fL JARED Comment:Testing performed by : [address] [address] RBC 4.85 3.90 - 5.20 M/cumm JARED PÉREZ Comment:Testing performed by : [address] [address] MCV 77.1(L) 81.3 - 96.4 fL JARED Comment:Testing performed by : [address] [address] MCH 23.9(L) 27.1 - 33.3 pg JRAED Comment:Testing performed by : [address] [address] MCHC 31.0(L) 32.3 - 35.7 g/dL JARED Comment:Testing performed by : [address] [address] RDW CV 15.2(H) 11.1 - 14.9 % JARED Comment:Testing performed by : [address] [address] RDW SD 42.2 35.7 - 48.1 fL JARED PÉREZ Comment:Testing performed by : [facility], [address] [place] [address]., [address] NRBC abs 0.00 0.00 - 0.01 K/cumm JARED PÉREZ Comment:Testing performed by : [address] [address] Blood 05/22/2024 5:52 AM CASSEROLE PREPARER 05/22/2024 6:01 AM CASSEROLE PREPARER Jenise Joyce NP LAB BLOOD ORDERABLES Final Re sult Performing Organization Address [facility] Co de Phone Number [place] [address] [facility] [place] [address] * CRP (acute phase) (05/22/2024 5:52 AM CASSEROLE PREPARER) CRP 1.8 <=10.0 mg/L Comment:Testing performed by : [address] [address] Blood 05/22/2024 5:52 AM CASSEROLE PREPARER 05/22/2024 6:01 AM CASSEROLE PREPARER Christiano Cummins MD LAB BLOOD ORDERABLES Final R esult Performing Organization Address [facility] de Phone Number [place] [address] [place] [address] * Magnesium (05/22/2024 5:52 AM CASSEROLE PREPARER) Magnesium 2.2 1.4 - 2.5 mg/dL Comment:Testing performed by : [address] [address] Blood 05/22/2024 5:52 AM CASSEROLE PREPARER 05/22/2024 6:01 AM CASSEROLE PREPARER Christiano Cummins MD LAB BLOOD ORDERABLES Final R esult Performing Organization Address [facility]/ZIP Co de Phone Number [facility] [address] [facility] Department [place] [address] * Ferritin (05/22/2024 5:52 AM CASSEROLE PREPARER) Pathologist [facility] Ferritin 18 15 - 150 ng/mL Comment:Testing performed by : [address] [address] Blood 05/22/2024 5:52 AM CASSEROLE PREPARER 05/22/2024 6:01 AM CASSEROLE PREPARER us Christiano Cummins MD LAB BLOOD ORDERABLES Final R esult JARED [facility] [place] [address] * Basic metabolic panel (05/22/2024 5:52 AM CASSEROLE PREPARER) Pathologist [facility] Sodium 139 135 - 145 mmol/L Comment:Testing performed by : [address] [address] Potassium, pl 4.0 3.3 - 4.9 mmol/L JARED Comment:Testing performed by : [address] [address] Chloride 107 97 - 110 mmol/L JARED Comment:Testing performed by : [address] [address] CO2 25 22 - 32 mmol/L JARED Comment:Testing performed by : [address] [address] Anion gap 7 2 - 15 mmol/L JARED Comment:Testing performed by : [address] [address] BUN 12 6 - 25 mg/dL JARED Comment:Testing performed by : [address] [address] Creatinine 0.70 0.60 - 1.10 mg/dL JARED Comment:Testing performed by : [address] [address] Glucose 106 70 - 199 mg/dL JARED [...] was last revised 2022. Testing performed by: [address] [address] Calcium 9.7 8.5 - 10.3 mg/dL JARED Comment:Testing performed by : [address] [address] Blood 05/22/2024 5:52 AM CASSEROLE PREPARER 05/22/2024 6:01 AM CASSEROLE PREPARER us Jenise Joyce NP LAB BLOOD ORDERABLES Final Re sult Performing Organization Address City/[facility] Co de Phone Number [facility] [address] [facility] [place] [address] * POCT glucose (05/21/2024 7:39 PM CASSEROLE PREPARER) [facility] Glucose, POC 120 70 - 199 mg/dL Comment:Testing performed by : [address] [address] Glucose comment 1 Use This Result JARED Comment:Testing performed by : [address] [address] Glucose comment 2 RN/MD Notified JARED Comment:Testing performed by : [address] [address] Blood 05/21/2024 7:39 PM CASSEROLE PREPARER 05/21/2024 7:39 PM CASSEROLE PREPARER Zay Toledo MD LAB POCT ORDERABLE S - DEVICE Final Result Performing Organization Address City/[facility]/ZIP Co de Phone Number [facility] [address] Department [place] [address] * MRI Brain WO Contrast (05/21/2024 6:34 PM CASSEROLE PREPARER) Anatomical Region Laterality Modality Head and Neck N/A Magnetic Resonan ce 05/21/2024 8:27 PM CASSEROLE PREPARER Narrative 05/21/2024 8:46 PM CASSEROLE PREPARER EXAM DESCRIPTION: MRI BRAIN WO CONTRAST REASON [...] Johnie Barrera M.D. MF: VENUS Report ID: [id number] Reading Location: [place] [address] Procedure Note Bruce Johnie Pepe, DO - 05/21/2024 EXAM DESCRIPTION: MRI BRAIN WO CONTRAST REASON FOR STUDY: Neuro deficit, acute, stroke suspected Neuro deficit, acute, stroke suspected TECHNIQUE: Multiplanar imaging includes non-contrasted T1, T2, FLAIR, and diffusion with ADC map sequences. Additional sequence(s) sensitive [employer] products. Images stored on PACS. COMPARISON: None [...] Johnie Barrera M.D. MF: VENUS Report ID: [id number] Reading Location: [place] [address] Jenise Joyce NP IM MRI PROCEDURES Final Resu lt * CT Body Outside Reference (05/21/2024 4:52 PM CASSEROLE PREPARER) Narrative TRISTIAN_MHE - 05/21/2024 4:52 PM CASSEROLE PREPARER This order has been auto-finalized and does not contain a result. us Provider Transcribed Order IMG CT PROCEDURES Fin al Result Performing Organization Address [facility] Co de Phone Number JENELLE_NADYA_ELISAB_MHE * CT Body Outside Reference (05/21/2024 4:46 PM CASSEROLE PREPARER) Narrative TRISTIAN_ELISAE - 05/21/2024 4:46 PM CASSEROLE PREPARER This order has been auto-finalized and does not contain a result. us Provider Transcribed Order IMG CT PROCEDURES Fin al Result Performing Organization Address [facility] de Phone Number JENELLE_NADYA_ELISAB_MHE * POCT glucose (05/21/2024 4:31 PM CASSEROLE PREPARER) [facility] Glucose, POC 113 70 - 199 mg/dL Comment:Testing performed by : [address] [address] Glucose comment 1 Use This Result JARED PÉREZ Comment:Testing performed by : [address] [address] Glucose comment 2 RN/MD Notified JARED Comment:Testing performed by : [address] [address] Blood 05/21/2024 4:31 PM CASSEROLE PREPARER 05/21/2024 4:31 PM CASSEROLE PREPARER Zay Toledo MD LAB POCT ORDERABLE S - DEVICE Final Result Performing Organization Address [facility] Co de Phone Number JARED [address] [facility] Department [place] [address] * eGFR (05/21/2024 3:03 PM CASSEROLE PREPARER) Pathologist [facility] eGFR 68 >=60 mL/min/1. 73 m2 Comment: [...] was last reviewed 2021. Testing performed by: [address] [address] Blood 05/21/2024 3:03 PM CASSEROLE PREPARER 05/21/2024 3:05 PM CASSEROLE PREPARER us Jenise Joyce NP LAB BLOOD ORDERABLES Final Re sult JARED [address] [facility] Department [place] [address] * Differential, auto (05/21/2024 3:03 PM CASSEROLE PREPARER) Pathologist [facility] Neutrophil abs 4.0 1.5 - 6.5 K/cumm Comment:Testing performed by : [address] [address] Imm gran abs 0.0 0.0 - 0.1 K/cumm JARED PÉREZ Comment:Testing performed by : [address] [address] Lymphocyte abs 1.2 0.8 - 3.3 K/cumm JARED Comment:Testing performed by : [address] [address] Monocyte abs 0.6 0.2 - 0.8 K/cumm [facility] Comment:Testing performed by : [address] [address] Eosinophil abs 0.2 0.0 - 0.5 K/cumm JARED Comment:Testing performed by : [address], [place]., [address] Basophil abs 0.1 0.0 - 0.1 K/cumm [facility] Comment:Testing performed by : [address] [address] Neutrophil pct 66.3 % [facility] Comment: Interpretive Data Percent cell count reference ranges are not reported, since discordance with absolute values may lead to misinterpretation of CBC data. Current Interpretive Data was last revised on 2017. Testing performed by: [address] [address] Imm gran pct 0.3 % [facility] Comment: Interpretive Data Percent cell count reference ranges are not reported, since discordance with absolute values may lead to misinterpretation of CBC data. Current Interpretive Data was last revised on 2017. Testing performed by: [address] [address] Lymphocyte pct 19.6 % [facility] Comment: Interpretive Data Percent cell count reference ranges are not reported, since discordance with absolute values may lead to misinterpretation of CBC data. Current Interpretive Data was last revised on 2017. Testing performed by: [address] [address] Monocyte pct 9.7 % [facility] Comment: Interpretive Data Percent cell count reference ranges are not reported, since discordance with absolute values may lead to misinterpretation of CBC data. Current Interpretive Data was last revised on 2017. Testing performed by: [address] [address] Eosinophil pct 2.5 % [facility] Comment: Interpretive Data Percent cell count reference ranges are not reported, since discordance with absolute values may lead to misinterpretation of CBC data. Current Interpretive Data was last revised on 2017. Testing performed by: [address] [address] Basophil pct 1.6 % JARED Comment: Interpretive Data Percent cell count reference ranges are not reported, since discordance with absolute values may lead to misinterpretation of CBC data. Current Interpretive Data was last revised on 2017. Testing performed by: [address] [address] Blood 05/21/2024 3:03 PM CASSEROLE PREPARER 05/21/2024 3:05 PM CASSEROLE PREPARER [employer] LAB BLOOD ORDERABLES Final Re sult Performing Organization Address [facility] Co de Phone Number [address] [place] [address] * Thyroid Function [place] (05/21/2024 3:03 PM CASSEROLE PREPARER) Pathologist [facility] TSH 1.23 0.30 - 4.20 mcIUnit/mL Comment:Testing performed by : [address] [address] Blood 05/21/2024 3:03 PM CASSEROLE PREPARER 05/21/2024 3:05 PM CASSEROLE PREPARER [employer] [facility] LAB BLOOD ORDERABLES Final Re sult Performing Organization Address [facility] Co de Phone Number [address] [address] * (ABNORMAL) CBC with auto differential (05/21/2024 3:03 PM CASSEROLE PREPARER) Pathologist [facility] WBC 6.1 3.8 - 9.9 K/cumm Comment:Testing performed by : [address] [address] Hgb 11.8(L) 11.9 - 15.5 g/dL JARED PÉREZ Comment:Testing performed by : [address] [address] Hct 37.7 35.6 - 45.5 % JARED PÉREZ Comment:Testing performed by : [address] [address] Plt 291 150 - 400 K/cumm JARED Comment:Testing performed by : [address] [address] MPV 9.4 9.1 - 12.3 fL JARED PÉREZ Comment:Testing performed by : [address] [address] RBC 4.86 3.90 - 5.20 M/cumm JARED PÉREZ Comment:Testing performed by : [address] [address] MCV 77.6(L) 81.3 - 96.4 fL JARED Comment:Testing performed by : [address] [address] MCH 24.3(L) 27.1 - 33.3 pg JARED Comment:Testing performed by : [address] [address] MCHC 31.3(L) 32.3 - 35.7 g/dL JARED Comment:Testing performed by : [address] [address] RDW CV 15.3(H) 11.1 - 14.9 % JARED Comment:Testing performed by : [address] [address] RDW SD 42.9 35.7 - 48.1 fL JARED Comment:Testing performed by : [address] [address] NRBC abs 0.00 0.00 - 0.01 K/cumm JARED Comment:Testing performed by : [address] [address] Blood 05/21/2024 3:03 PM CASSEROLE PREPARER 05/21/2024 3:05 PM CASSEROLE PREPARER us Jenise Joyce NP LAB BLOOD ORDERABLES Final Re sult JARED [address] [facility] Department of Laboratories [place], [place] [id number] * (ABNORMAL) Hemoglobin A1c (05/21/2024 3:03 PM CASSEROLE PREPARER) Hgb A1C 6.7(H) 4.0 - 5.6 % Comment:Testing performed by : [address] [address] Estimated Average Glucose 146 mg/dL JARED Comment: The ADA recommends reporting an estimated Average Glucose (eAG) with all Hemoglobin A1c results using the equation derived from a study of 507 normal and diabetic adults. Minority populations were underrepresented and children were not included. (Diabetes Care 31:0524-3752, 2008). The eAG is not equivalent to a fasting glucose. Testing performed by: [address] [address] Blood 05/21/2024 3:03 PM CASSEROLE PREPARER 05/21/2024 3:05 PM CASSEROLE PREPARER us Jenise Joyce NP LAB BLOOD ORDERABLES Final Re sult JARED [address] [facility] Department [place] [address] * Lipid panel (05/21/2024 3:03 PM CASSEROLE PREPARER) Pathologist [facility] Cholesterol 167 30 - 199 mg/dL Comment: [...] last revised on 2017. Testing performed by: [address] [address] Triglycerides 100 <=149 mg/dL JARED Comment: Interpretive [...] last revised on 2017. Testing performed by: [address] [address] HDL 44 >=40 mg/dL [facility] Comment: Interpretive Data Ages < or = [...] last revised on 2017. Testing performed by: [address] [address] LDL, calculated 105 <=129 mg/dL JARED Comment: [...] last revised on 2023. Testing performed by: [address] [address] Non-HDL Cholesterol 123 mg/dL JARED PÉREZ Comment: [...] last revised on 2017. Testing performed by: [address] [address] Chol/HDL ratio 4 JARED PÉREZ Comment:Testing performed by : [address] [address] Blood 05/21/2024 3:03 PM CASSEROLE PREPARER 05/21/2024 3:05 PM CASSEROLE PREPARER us Jenise Joyce NP LAB BLOOD ORDERABLES Final Re sult JARED PÉREZ [address] [facility] Department of Laboratories [place], [place] [id number] * Basic metabolic panel (05/21/2024 3:03 PM CASSEROLE PREPARER) Sodium 140 135 - 145 mmol/L Comment:Testing performed by : [address] [address] Potassium, pl 4.1 3.3 - 4.9 mmol/L JARED PÉREZ Comment:Testing performed by : [address] [address] Chloride 107 97 - 110 mmol/L JARED PÉREZ Comment:Testing performed by : [address] [address] CO2 24 22 - 32 mmol/L JARED PÉREZ Comment:Testing performed by : [address] [address] Anion gap 9 2 - 15 mmol/L JARED Comment:Testing performed by : [address] [address] BUN 12 6 - 25 mg/dL JARED Comment:Testing performed by : [address] [address] Creatinine 0.90 0.60 - 1.10 mg/dL JARED Comment:Testing performed by : [address] [address] Glucose 99 70 - 199 mg/dL JARED [...] was last revised 2022. Testing performed by: [address] [address] Calcium 9.6 8.5 - 10.3 mg/dL JARED Comment:Testing performed by : [address] [address] Blood 05/21/2024 3:03 PM CASSEROLE PREPARER 05/21/2024 3:05 PM CASSEROLE PREPARER us Jenise Joyce NP LAB BLOOD ORDERABLES Final Re sult [facility] [address] [facility] Department [place] [address] * CT Body Outside Reference (05/20/2024 12:00 AM CASSEROLE PREPARER) Narrative JENELLE_NADYA_KRISTOFER_MHE - 05/21/2024 4:53 PM CASSEROLE PREPARER This order has been auto-finalized and does not contain a result. us Provider Transcribed Order IMG CT PROCEDURES Fin al Result RAD_CLARIO_MHB_MHE from Last 3 Months Insurance [employer] S[employer]IOR [employer]MENT MEDICARE [employer] [place] [address] [facility] MEDICARE ADVANTAGE Advance Directives For more information, please contact: [phone] * Full Code (Latest Code Status on File) Date Activated Date Inactivated Comments 05/21/2024 3:27 PM 05/25/2024 7:46 PM Care Teams [employer] Apprentice Relationship Specialty Start Date End Date Johnie Ordaz MD PCP - General Internal Medicine 08/23/20
--- NOTE | 2024-08-13 19:13 | PC.NURSE ---
Report received from DILSHAD Brewer. Assumed care of patient at this time.
[2024-08-13] MEDS: ASPIRIN 81 MG CHEWABLE TABLET 324 MG PO (19:54)
[2024-08-13 20:41] LABS: Add Urine Microscopic? YES; Appearance Urine Turbid (Clear); Bacteria Urine 4+ /hpf; Bilirubin Urine Negative (Negative); Blood Urine 1+ (Negative); Color Urine Yellow (Yellow); Glucose Urine UA Negative (Negative); Ketones Urine Trace mg/dL (Negative); Leukocyte Esterase Ur 3+ LEU/UL (Negative); Need Manual Microscopic Reviewed; Nitrate Urine Positive (Negative); Non Pathogenic Casts >20; Protein Urine 1+ mg/dL (Negative); Specific Grav Ur 1.017 (1.001-1.035); Squamous Epithelial Cell Urine Moderate /hpf (Few); WBC Urine >100 /hpf (0-3); pH Urine 5.5 (5.0-9.0)
--- NOTE | 2024-08-13 20:46 | ADMGEN ---
This patient, Pinky Yao, was admitted to Medical Room 342-01. Patient/family oriented to hospital policies and general routines including ID bracelet, bed and alarms, visiting hours, pain management, procedures, bathroom and other care routines, personal items, smoking policy, room service/diet, and visiting hours. Information on how to activate the Rapid Response Team has been discussed. Patient/Family are encouraged to report perceived risks to care and to ask questions if they do not understand what they are told or what they should do.
[2024-08-14] VITALS (9 sets, daily range): BP systolic 120–155; BP diastolic 50–77; PULSE 58–75; RESP 16–20; TEMP 36.1–36.4; O2SAT 97–100
--- NOTE | 2024-08-14 | ECHO_ITS ---
Patient Info Name: Pinky Yao Age: 73 years : 1950 Gender: Female Ht: 65 in Wt: 167 lbs BSA: 1.88 m2 HR: 66 bpm BP: 120 / 50 mmHg Heart Rhythm: Sinus Rhythm Technical Quality: Fair Exam Date: 08/14/2024 1:51 PM Exam Location: Echo Lab Patient Status: Inpatient Admit Date: 08/14/2024 Staff Ordering Physician: Levi Bliss MD Power Hammer Operator: Sonja Benoit RDCS Attending Provider: Lane Pate PA-C Referring Physician: Izaiah OLIVER; Exam Type: CA echo doppler color flow Study Info Indications - Diziness Complete two-dimensional, color flow and Doppler transthoracic echocardiogram is performed. Summary 1. Complete two-dimensional, color flow and Doppler transthoracic echocardiogram is performed. 2. Left ventricular systolic function is normal, estimated at 65-70%. 3. There is mildly increased left ventricular wall thickness. 4. The left ventricular diastolic function is grade I diastolic dysfunction. 5. There is mild aortic valve stenosis with a peak velocity of 234 cm/s, mean gradient of 11 mmHg, and aortic valve area of 1.5 cm2. Left Ventricle Left ventricular chamber dimension is normal. Left ventricular systolic function is normal, estimated at 65-70%. There is mildly increased left ventricular wall thickness. Left ventricular septal wall motion is normal. The left ventricular diastolic function is grade I diastolic dysfunction. Right Ventricle Right ventricular chamber dimension is normal. Right ventricular systolic function is normal. Left Atria Left atrial chamber dimension is normal. Right Atria Right atrial chamber dimension is normal. Aortic Valve The aortic valve is probable trileaflet. There is no aortic valve sclerosis. There is mild aortic valve stenosis with a peak velocity of 234 cm/s, mean gradient of 11 mmHg, and aortic valve area of 1.5 cm2. There is no aortic valve regurgitation. There is mild aortic valve calcification. Pulmonic Valve The pulmonic valve is normal. There is no pulmonic valve stenosis. There is no pulmonic regurgitation. Mitral Valve The mitral valve has normal leaflets. There is no mitral valve stenosis. There is no mitral valve regurgitation. There is mild mitral valve calcification. Tricuspid Valve The tricuspid valve leaflets are normal. There is no significant tricuspid valve stenosis. There is no tricuspid valve regurgitation. Pericardium/Pleural The pericardium appears normal. There is no pericardial effusion. Inferior Vena Cava Normal inferior vena cava with >50% collapse upon inspiration consistent with Empty right atrial pressure, Empty. Aorta The aortic root size at the sinus of Valsalva is normal. The prox ascending aorta size is normal. Left Ventricular Outflow Tract Name Value Normal LVOT 2D LVOT Diameter 2.0 cm LVOT Doppler LVOT Peak Gradient 6 mmHg LVOT Mean Gradient 2 mmHg LVOT VTI 21 cm LVOT VTI/AV VTI Ratio 0.5 LVOT Stroke Volume 65 ml LVOT CO 4.7 l/min LVOT CI 2.5 l/min/m2 Pulmonic Valve Name Value Normal RVOT Doppler RVOT Peak Gradient 4 mmHg PV Doppler PV Peak Gradient 7 mmHg Mitral Valve Name Value Normal MV Doppler MV Decel [place] 286 cm/s2 MV PHT 86 ms MV Area (PHT) 2.6 cm2 4.0-5.0 MV Diastolic Function MV E Peak Velocity 84 cm/s MV A Peak Velocity 130 cm/s MV E/A 0.6 MV Decel Time 296 ms MV Annular TDI MV E/e' (Septal) 13.3 <=8.0 MV E/e' (Lateral) 11.1 <=8.0 MV E/e' (Average) 12.2 Aorta Name Value Normal Ascending Aorta Ao Root Diameter (MM) 3.0 cm Ao Root Diam Index (MM) 1.6 cm/m2 Aortic Valve Name Value Normal AV Doppler AV Peak Velocity 234 cm/s AV Peak Gradient 22 mmHg AV Mean Gradient 11 mmHg AV VTI 42 cm AV Area (Cont Eq VTI) 1.5 cm2 >=3.0 AV Area (Cont Eq Danilo) 1.6 cm2 AV Regurgitation 2D LVOT Area 3.0 cm2 Ventricles Name Value Normal LV Dimensions 2D/MM IVS Diastolic Thickness (2D) 1.0 cm 0.6-1.0 LVID Diastole (2D) 4.5 cm 3.8-5.2 LVIW Diastolic Thickness (2D) 1.0 cm 0.6-0.9 LVID Systole (2D) 2.7 cm 2.2-3.5 LVOT Diameter 2.0 cm LV Mass (2D Cubed) 153.43 g 67.00-162.00 LV Mass Index (2D Cubed) 81 g/m2 43-95 Relative Wall Thickness (2D) 0.46 LV Fractional Shortening/Ejection Fraction 2D/MM LV Fractional Shortening (2D) 41 % 27-45 LV EF (2D Teicholz) 72 % 54-74 LV Diastolic Volume (4C MOD) 64 ml LV EF (4C MOD) 69 % LV Diastolic Volume (2C MOD) 39 ml LV EF (2C MOD) 64 % LV Diastolic Volume (BP MOD) 52 ml 46-106 LV Diastolic Volume Index (BP MOD) 27 ml/m2 29-61 LV Systolic Volume (BP MOD) 17 ml 14-42 LV Systolic Volume Index (BP MOD) 9 ml/m2 8-24 LV EF (BP MOD) 67 % 54-74 LV Diastolic Length (4C) 8.0 cm LV Systolic Length (4C) 6.2 cm LV Stroke Volume (4C MOD) 45 ml Atria Name Value Normal LA Dimensions LA Dimension (MM) 4.4 cm 2.7-3.8 LA Volume (4C A-L) 68 ml LA Volume (BP A-L) 73 ml RA Dimensions RA Area (4C) 10.6 cm2 <=18.0 Report Signatures
--- NOTE | 2024-08-14 02:52 | P.HP_ITS ---
H&P: HPI History of Present Illness Date/Time: 08/14/24 02:52 Chief Complaint: 1. Dizziness Narrative: Pinky Yao is a 73-year-old female with a medical history significant for dyslipidemia, hypertension, CVA, and IDDM 2, obesity Hours prior to admission she while attempting to move about on straining developed sudden new onset dizziness; it was aggravated by standing, poorly as alleviated by sitting/laying immobile, associated with anxiety, malaise, and a restriction of the ADLs She denies associated symptoms of chest pain, focal weakness, speech/visual impairment or falls Currently on clopidogrel for a previous CVA that occurred in 05/2024, she attests to a oriental orthodox adherence to the regimen; She does not smoke/chew tobacco, vaping nicotine, consume recreational/illicit drugs Work-up findings: CTA Head and neck: 1. No cervical arterial dissection or cerebral artery aneurysm. 2. No carotid bulb stenosis. Scattered arterial sclerosis with less than 20% carotid siphon stenosis bilaterally. 3. Mild age-related findings. 4. Diffuse lung mosaic attenuation, more likely air trapping and ground glass opacities.5. Thyroid nodules. CXR: Mild interstitial edema versus chronic interstitial change. Head CT: Possible focal left thalamic infarct of indeterminate age, consider MR of the brain for further evaluation. CT chest: Moderate emphysema. Evidence of prior granulomatous disease. WBC 13.1; HGB 11.9; MCV 81; PLT 302 Na 136; K 4.2; Cl 105; CO2 21; a/G10; BUN 13; CR 1.17; GFR > 45 Unremarkable complete blood chemistries Troponin I: 0.012; ECG: NSR; inferior infarct; no overt findings concerning for ischemia UA: Positive nitrites, 3+ LE, > 100 WBC, 4+ bacteria Pinky Yao will be admitted, evaluated, and managed for dizziness Review of Systems Review of Systems: All systems reviewed & are unremarkable except as noted in HPI and below [facility] Family History Family History (Updated 08/13/24 @ 20:50 by Yee Weathers RN) Father Chronic obstructive pulmonary disease Son Stomach cancer Sibling Lung cancer Social History Social History Smoking status: Former smoker Alcohol intake: never Substance use: never Do You Feel Safe in your Home?: Yes Lack of Transportation: No Lack of Food: Never True Current Housing: I Have Housing Concerned About Future Housing: No Difficulty Paying Gas/Electric Bills: No Difficulty Paying for Meds: No Currently Unemployed: No Education: High School Diploma/GED Difficulty w/ Childcare or Family Care: No Spiritual care concerns: No Meds Home Medications and Allergies Home Medications ?Medication ?Instructions ?Recorded ?Confirmed ?Type amlodipine 5 mg tablet 5 mg PO DAILY 08/13/24 08/13/24 History atorvastatin 80 mg tablet 80 mg PO DAILY 08/13/24 08/13/24 History clopidogrel 75 mg tablet 75 mg PO DAILY 08/13/24 08/13/24 History ezetimibe 10 mg tablet 10 mg PO DAILY 08/13/24 08/13/24 History losartan 100 mg tablet 100 mg PO DAILY 08/13/24 08/13/24 History metformin 500 mg tablet,extended 500 mg PO QPM 08/13/24 08/13/24 History release 24 hr Allergies Allergy/AdvReac Type Severity Reaction Status Date / Time No Known Allergies Allergy Verified 08/13/24 17:39 Vital Signs Vital Signs - 24 hr 08/13/24 17:41 08/13/24 18:15 08/13/24 18:15 Temperature 97.3 F L Pulse Rate 84 77 79 Respiratory Rate 16 Blood Pressure 115/70 140/69 128/74 Pulse Oximetry 98 Oxygen Delivery 08/13/24 18:16 08/13/24 19:59 08/13/24 20:26 Temperature Pulse Rate 88 89 80 Respiratory Rate 20 17 Blood Pressure 127/70 113/53 L 113/53 L Pulse Oximetry 95 94 Oxygen Delivery 08/13/24 20:53 08/13/24 20:57 08/13/24 21:29 Temperature 97.1 F L Pulse Rate 66 79 Respiratory Rate 20 Blood Pressure 123/62 Pulse Oximetry 98 Oxygen Delivery Room Air 08/14/24 00:00 Temperature Pulse Rate 75 Respiratory Rate Blood Pressure Pulse Oximetry Oxygen Delivery Exam Const: General: comfortable and no acute distress HENMT: Ears: TM's normal bilaterally Face/Nose/Sinus: Normal nares present Eyes: General: appearance normal, both eyes and all related structures Sclera: sclerae normal Pupils: Equal, round and reactive pupils present Neck: Neck: supple Thyroid: thyroid normal Resp: Effort & Inspection: normal respiratory effort Cardio: Rate: regular rate Rhythm: regular rhythm GI: GI Palp: Yes Soft to palpation Skin: General skin exam: normal color Neuro: General: gait normal Motor exam (neuro): 5/5 motor strength present throughout and Normal motor muscle tone present throughout Extrem: General: normal to inspection Psych: Mental Status: mental status grossly normal Affect: Anxious affect present H&P: Results Labs Labs: Short CBC 08/13/24 Range/Units 18:09 WBC 13.1 H (4.5-10.0) K/mm3 Hgb 11.9 L (12.0-15.0) g/dL Hct 38.4 (37.0-47.0) % Plt Count 302 (150-375) k/mm3 BMP 08/13/24 18:09 Sodium 136 L Potassium 4.2 Chloride 105 Carbon Dioxide 21 L BUN 13 Creatinine 1.17 H Glucose 211 H Calcium 9.7 Cardiac Enzymes 08/13/24 Range/Units 18:09 Troponin I < 0.012 (0.000-0.034) ng/mL Liver Function 08/13/24 Range/Units 18:09 Total Bilirubin 0.8 (0.2-1.3) mg/dL AST 30 (14-36) U/L ALT 19 (6-35) U/L Alkaline Phosphatase 86 (38-126) U/L Albumin 4.2 (3.5-5.1) g/dL Urine 08/13/24 Range/Units 19:37 Urine Color Yellow (Yellow) Urine Appearance Turbid H (Clear) Urine pH 5.5 (5.0-9.0) Ur Specific [place] 1.017 (1.001-1.035) Urine Protein 1+ H (Negative) mg/dL Urine Glucose (UA) Negative (Negative) mg/dL Assessment and Plan Assessment and plan (1) Near syncope: Code(s): R55 - Syncope and collapse Status: Acute (2) Dyslipidemia: Code(s): E78.5 - Hyperlipidemia, unspecified Status: Acute (3) Non-insulin dependent diabetes mellitus: Status: Acute (4) CVA (cerebral vascular accident): Code(s): I63.9 - Cerebral infarction, unspecified Status: Acute Plan Acute and principal conditions 1. Dizziness; Near syncope. probably vasovagal from straining 2. UTI 3. Acute renal insufficiency. on ARBs; probably pre-renal 4. CVA. Possible focal left thalamic infarct of indeterminate age Rx: * IVFs; Hold ARBs; monitor renal function * MRI brain * ABORIGINAL CEREMONIAL CELEBRANT/PT/OT * Ceftriaxone; Urine and blood cultures * HbA1c, Lipid panel Chronic and stable conditions * NIDDM2. Basal+correctional insulin. HbA1c * Dyslipidemia. * Hx of CVA. w/right sided deficits * Obesity, BMI 27 * Hypertension. Hold ARBs due to ELVIA Miscellaneous care * Code status. Full * VTE prophylaxis. SCDs; TANIA * Nutrition. Heart healthy; Carb-controlled Quality VTE Prophylaxis VTE prophylaxis: mechanical ordered and pharmacologic ordered Hospitalist MIPS Advance Care Plan I have confirmed that the patient's Advanced Care Plan is present, code status is documented, or surrogate decision maker is listed in patient medical record.: Yes Medication Reconciliation I have utilized all available resources to obtain, update and review the patients current medications (includes all prescriptions, OTC, herbals, cannabis, and nutritional supplements).: Yes The patient is not eligible for med reconciliation; the patient is in a emergent medical situation where delaying treatment would jeopardize the patients health.: Yes
[2024-08-14] MEDS: SODIUM CHLORIDE 0.9% IV 1,000 ML 75 ML IV CONT (03:09)
[2024-08-14 04:53] LABS: Basophils Absolute Auto 0.1 K/mm3 (0.0-0.1); Eosinophils Absolute Auto 0.2 K/mm3 (0-0.3); Hematocrit 36.3 % (37.0-47.0); Hemoglobin 11.1 g/dL (12.0-15.0); Immature Granulocyte Absolute 0.04 K/mm3 (0.00-0.031); Immature Granulocyte Percent A 0.5 % (0-0.5); Lymphocytes Absolute Auto 1.52 K/mm3 (0.9-3.2); Lymphocytes Percent Auto 17.5 % (18.3-44.2); Mean Corpuscular HGB Conc 30.6 g/dl (32-36); Mean Corpuscular Hemoglobin 25.3 pg (26-34); Mean Corpuscular Volume 82.9 fl (80-100); Mean Platelet Volume 9.3 fl (7.4-10.4); Monocytes Absolute Auto 0.9 K/mm3 (0.1-0.6); Monocytes Percent Auto 10.8 % (2.6-8.5); Neutrophils Absolute Auto 5.9 K/mm3 (1.3-6.7); Neutrophils Percent Auto 68.2 % (45.5-73.1); Platelet Count Result 300 k/mm3 (150-375); Red Blood Count 4.38 M/mm3 (4.2-5.4); White Blood Count 8.7 K/mm3 (4.5-10.0)
[2024-08-14 05:01] LABS: Alanine Aminotransferase 17 U/L (6-35); Albumin Level 3.9 g/dL (3.5-5.1); Alkaline Phosphatase 86 U/L (38-126); Anion Gap 9 mmol/L (4-12); Aspartate Amino Transferase 21 U/L (14-36); Bilirubin,Total 0.5 mg/dL (0.2-1.3); Blood Urea Nitrogen 13 mg/dL (7-17); Calcium 9.5 mg/dL (8.4-10.2); Carbon Dioxide 23 mmol/L (22-30); Chloride 106 mmol/L (98-107); Cholesterol 100 mg/dL (0-200); Estimated CRCL calculation 50 ml/min; Estimated Glomerular Filt Rate > 60; Glucose 104 mg/dL (65-110); HDL Direct 51 mg/dL; Potassium 3.9 mmol/L (3.4-5.0); Sodium 138 mmol/L (137-145); Triglycerides 45 mg/dL (<150)
[2024-08-14 05:04] LABS: Hemoglobin A1C 6.7 % (<5.7)
[2024-08-14 05:22] LABS: LDL Cholesterol Direct < 30 mg/dL
--- NOTE | 2024-08-14 07:24 | P.PNIM_ITS ---
Progress Note: A&P Assessment and Plan (1) Near syncope: Code(s): R55 - Syncope and collapse Status: Acute (2) Dyslipidemia: Code(s): E78.5 - Hyperlipidemia, unspecified Status: Acute (3) Non-insulin dependent diabetes mellitus: Status: Acute (4) CVA (cerebral vascular accident): Code(s): I63.9 - Cerebral infarction, unspecified Status: Acute Plan Acute and principal conditions 1. Dizziness; Near syncope. probably vasovagal from straining 2. UTI 3. Acute renal insufficiency. on ARBs; probably pre-renal 4. CVA. Possible focal left thalamic infarct of indeterminate age Rx: * IVFs; Hold ARBs; monitor renal function * MRI brain * [facility]/PT/OT * Ceftriaxone; Urine and blood cultures * HbA1c, Lipid panel Chronic and stable conditions * NIDDM2. Basal+correctional insulin. HbA1c * Dyslipidemia. * Hx of CVA. w/right sided deficits * Obesity, BMI 27 * Hypertension. Hold ARBs due to ELVIA Miscellaneous care * Code status. Full * VTE prophylaxis. SCDs; TANIA * Nutrition. Heart healthy; Carb-controlled Subjective Date/time seen: 08/14/24 07:24 Interval history: Patient is a 73-year-old female with a pmhx of HTN, CVA, IDDM 2, dyslipidemia, and obesity who presented to the ED for sudden onset dizziness that started when she was straining to move something. She denies associated symptoms of chest pain, focal weakness, speech/visual impairment or falls. 08/14/2024 Review of Systems Review of Systems: All systems reviewed & are unremarkable except as noted in HPI and below Exam Const: General: comfortable and no acute distress HENMT: Ears: TM's normal bilaterally Face/Nose/Sinus: Normal nares present Eyes: General: appearance normal, both eyes and all related structures Sclera: sclerae normal Pupils: Equal, round and reactive pupils present Neck: Neck: supple Thyroid: thyroid normal Resp: Effort & Inspection: normal respiratory effort Cardio: Rate: regular rate Rhythm: regular rhythm Skin: General skin exam: normal color Neuro: General: gait normal Cranial nerves: Yes Equal, round and reactive pupils present Motor exam (neuro): 5/5 motor strength present throughout and Normal motor muscle tone present throughout Extrem: General: normal to inspection Psych: Mental Status: mental status grossly normal Affect: Anxious affect present Objective Data Vital Signs Vital Signs: Vital Signs - 24 hr 08/13/24 17:41 08/13/24 18:15 08/13/24 18:15 Temperature 97.3 F L Pulse Rate 84 77 79 Respiratory Rate 16 Blood Pressure 115/70 140/69 128/74 Pulse Oximetry 98 Oxygen Delivery 08/13/24 18:16 08/13/24 19:59 08/13/24 20:26 Temperature Pulse Rate 88 89 80 Respiratory Rate 20 17 Blood Pressure 127/70 113/53 L 113/53 L Pulse Oximetry 95 94 Oxygen Delivery 08/13/24 20:53 08/13/24 20:57 08/13/24 21:29 Temperature 97.1 F L Pulse Rate 66 79 Respiratory Rate 20 Blood Pressure 123/62 Pulse Oximetry 98 Oxygen Delivery Room Air 08/14/24 00:00 08/14/24 01:55 08/14/24 04:00 Temperature 97.2 F L Pulse Rate 75 67 66 Respiratory Rate 18 Blood Pressure 120/50 L Pulse Oximetry 97 Oxygen Delivery Intake/Output Intake/Output: Intake & Output 08/11/24 08/12/24 08/13/24 08/14/24 23:59 23:59 23:59 23:59 Intake Total 50 Balance 50 Meds/Results Medications: Active Medications Generic Name Dose Route Start Last Admin Trade Name Freq PRN Reason Stop Dose Admin Acetaminophen 650 mg 08/13/24 19:40 Acetaminophen 325 Mg Tablet PO Q4H PRN Mild Pain (1-3) or Fever Amlodipine Besylate 5 mg 08/14/24 09:00 Amlodipine Besylate 5 Mg Tablet PO DAILY [facility] Aspirin 81 mg 08/14/24 08:00 Aspirin 81 Mg Chewable Tablet PO DAILY@0800 [facility] Atorvastatin Calcium 80 mg 08/14/24 09:00 Atorvastatin 40 Mg Tablet PO DAILY [facility] Clopidogrel Bisulfate 75 mg 08/14/24 09:00 Clopidogrel Bisulfate 75 Mg Tablet PO DAILY [facility] Ezetimibe 10 mg 08/14/24 09:00 Ezetimibe 10 Mg Tablet PO DAILY [facility] Heparin Sodium (Porcine) 5,000 units 08/14/24 09:00 Heparin Sodium 5,000 Units/Ml Vial SUB-Q Q12HR [facility] Sodium Chloride 1,000 mls @ 75 mls/hr 08/14/24 02:40 08/14/24 03:09 Normal Saline Iv IV CONT 75 mls/hr .[id number] TANIA Administration Ceftriaxone Sodium 1 gm in 50 mls @ 100 mls/hr 08/14/24 02:45 08/14/24 05:15 Rocephin 1 Gm/Ns 50 Ml IVPB 08/19/24 21:29 Infused QHS TANIA Infusion Lorazepam 0.5 mg 08/14/24 03:27 Lorazepam Inj (*Crx) 2 Mg/Ml Vial IV PUSH ONCE PRN Anxiety Melatonin 5 mg 08/14/24 02:40 Melatonin 5 Mg Tablet PO HS PRN Insomnia Perflutren Lipid Microsphere 0 ml 08/14/24 02:43 Perflutren Lipid Microspheres 1.5 Ml Vial Diluted To 10 Ml Total Volume IV PUSH 08/17/24 02:43 ONCE PRN adequate visualization Protocol Prochlorperazine Edisylate 10 mg 08/14/24 02:40 Prochlorperazine Edisylate 10 Mg/2 Ml Vial IV PUSH Q6H PRN Nausea And Vomiting Radiology Results: ITS Impressions Head CT 08/13/24 18:51 IMPRESSION: Possible focal left thalamic infarct of indeterminate age, consider MR of the brain for further evaluation. Otherwise, no acute intracranial process. Chest X-Ray 08/13/24 18:57 IMPRESSION: Mild interstitial edema versus chronic interstitial change. Labs Labs: Laboratory Results - last 24 hr 08/13/24 08/13/24 08/14/24 18:09 19:37 04:35 WBC 13.1 H 8.7 RBC 4.73 4.38 Hgb 11.9 L 11.1 L Hct 38.4 36.3 L MCV 81.2 82.9 MCH 25.2 L 25.3 L MCHC 31.0 L 30.6 L RDW 15.0 H 15.0 H Plt Count 302 300 MPV 9.1 9.3 Immature Gran % (Auto) 0.5 0.5 Neut % (Auto) 85.7 H 68.2 Lymph % (Auto) 6.0 L 17.5 L [place] % (Auto) 6.4 10.8 H Eos % (Auto) 0.7 2.0 Baso % (Auto) 0.7 1.0 Lymph # (Auto) 0.79 L 1.52 [place] # (Auto) 0.8 H 0.9 H Eos # (Auto) 0.1 0.2 Baso # (Auto) 0.1 0.1 Abs Immat Gran (auto) 0.06 H 0.04 H Absolute Neuts (auto) 11.2 H 5.9 Absolute Nucleated RBC 0.000 0.000 Nucleated RBC % 0.0 0.0 Sodium 136 L 138 Potassium 4.2 3.9 Chloride 105 106 Carbon Dioxide 21 L 23 Anion Gap 10 9 BUN 13 13 Creatinine 1.17 H 0.89 Estim Creat Clear Calc 34 50 Estimated GFR 45 L > 60 Glucose 211 H 104 Hemoglobin A1c 6.7 H Calcium 9.7 9.5 Total Bilirubin 0.8 0.5 AST 30 21 ALT 19 17 Alkaline Phosphatase 86 86 Troponin I < 0.012 Total Protein 7.0 7.0 Albumin 4.2 3.9 Triglycerides 45 Cholesterol 100 LDL Cholesterol Direct < 30 HDL Direct 51 Urine Color Yellow Urine Appearance Turbid H Urine pH 5.5 Ur Specific [place] 1.017 Urine Protein 1+ H Urine Glucose (UA) Negative Urine Ketones Trace H Ur Blood (Man) 1+ H Urine Nitrate Positive H Urine Bilirubin Negative Urine Urobilinogen 1.0 Add Ur Microanalysis Reviewed Leukocyte Esterase Rfl 3+ H Urine RBC 6-10 H Urine WBC >100 H Ur Squamous Epith Cells Moderate Urine Bacteria 4+ H Urine Casts >20 Quality VTE Prophylaxis VTE prophylaxis: mechanical ordered and pharmacologic ordered
[2024-08-14] MEDS: ASPIRIN 81 MG CHEWABLE TABLET PO (08:41)
[2024-08-14] MEDS: EZETIMIBE 10 MG TABLET PO (08:41)
[2024-08-14] MEDS: amLODIPine BESYLATE 5 MG TABLET PO (08:42)
[2024-08-14] MEDS: ATORVASTATIN 40 MG TABLET 80 MG PO (08:42)
[2024-08-14] MEDS: HEPARIN SODIUM 5,000 UNITS/ML VIAL 5000 UNITS SUB-Q (08:42)
[2024-08-14] MEDS: CLOPIDOGREL BISULFATE 75 MG TABLET PO (08:42)
--- NOTE | 2024-08-14 08:48 | PCSTNOTE ---
Please refer to the Bedside Swallow Evaluation in the EMR. Please note, silent aspiration cannot be ruled out at bedside. The above pleasant and cooperative patient was seen for a swallow evaluation at her bedside. She was positioned upright in the bed. She was alert and oriented x 4 and able to follow commands. Speech is clear/intelligible. She is currently on a regular diet and denies dysphagia. Oral mucosa is normal; pt wears full upper and lower dentures good fit. An oral peripheral exam revealed lingual and labial structures to be normal. She was able to dry swallow on command and exhibited a strong cough and clear vocal quality. She was tested with pudding, crackers, and thin liquids. The oral stages appeared WNL. No oral leakage, residue, or pocketing was noted. During the pharyngeal stage, the swallow reflex appeared prompt & laryngeal elevation was adequate. No overt s/s of aspiration were exhibited; however, silent aspiration cannot be ruled out at the bedside. General impression is normal swallow ability. Recommendation: Continue the current diet. Thank you for this referral.
[2024-08-14] MEDS: LORazepam INJ (*CRX) 2 MG/ML VIAL 0.5 MG IV PUSH (08:49)
--- NOTE | 2024-08-14 11:36 | WPDNEURCNPN ---
Assessment and Plan Assessment and plan (1) Near syncope: Code(s): R55 - Syncope and collapse Status: Acute (2) Non-insulin dependent diabetes mellitus: Status: Acute (3) Dyslipidemia: Code(s): E78.5 - Hyperlipidemia, unspecified Status: Acute (4) CVA (cerebral vascular accident): Code(s): I63.9 - Cerebral infarction, unspecified Status: Acute Assessment and Plan: I did not find any significant weakness in the right side compared to the left side however patient states that when she walks after while the right side started to be slightly weaker than the left side that is more suggestive of fatigue and. A see a obviously has had a stroke in May which gradually improved most part. Her current presentation is more suggestive presyncopal feeling due to excessive straining due to constipation. I would suggest a carotid Doppler study to follow-up. Hemoglobin A1c was 6.7. Her LDL the 130 in cholesterol 100. The patient is on atorvastatin 80 mg a day in addition to aspirin 81 mg a day. Plan Will follow the results of MRI of the brain which has been ordered. Carotid Doppler study and echocardiogram has also been ordered and should be followed up. If possible we should try to obtain the records from [facility] particularly if there was any CT angiographic study or neurologic evaluations. Consult date: 08/14/24 HPI: Pinky Yao is a 73 year old female who presented to the emergency room with history that to while she was on the commode while straining because of constipation she developed a feeling as if she is going to pass out but she did not quite pass out. This apparently went on for very long time almost 30 minutes or so. She has not had spells such as this in the past. She had a stroke in May which left her with some difficulty with weakness on the right side of the body. She was in [facility] for almost 7 days and thereafter and rehab. I do not have the reports of her workup there but today it does not appear that she was transferred to [facility] interventional procedures. She has history of diabetes mellitus. CT scan of brain performed on this admission shows the left thalamic infarct. A CT angiogram of the head and neck was performed in August 2019 at this hospital which did not show any significant abnormality. MRI of the brain was performed this morning which shows old infarct in the was or bilateral basal ganglia left more than right side and as the left thalamus. No acute infarcts were seen. At this time she denies any headache, difficulty speech or swallowing. She denies any weakness in upper lower limbs. Review of Systems Constitutional: Constitutional: Denies chills, Denies fever(s) and Denies weight loss Eyes: Eyes: Denies diplopia and Denies loss of vision ENT: Denies dizziness, Denies hearing loss and Denies tinnitus Cardiovascular: Cardiovascular: Denies chest pain, Denies syncope and Denies dyspnea Respiratory: Respiratory: Denies cough, Denies dyspnea and Denies wheezing Gastrointestinal: Gastrointestinal: Denies abdominal pain, Denies change in bowel habits and Denies vomiting Genitourinary: Genitourinary: Denies urinary incontinence Musculoskeletal: Musculoskeletal: Denies arthralgias and Denies joint swelling Integumentary/Breasts: Skin/Breast: Denies new lesions and Denies rash Neurologic: Reports as per HPI, Denies dizziness, Denies syncope and Denies loss of vision Psychiatric: Psychiatric: Denies anxiety and Denies depression Endocrine: Endocrine: Denies cold intolerance and Denies heat intolerance Hematologic/Lymphatic: Hematologic/Lymphatic: Denies easy bleeding and Denies easy bruising Allergic/Immunologic: Allergic/Immunologic: Denies no additional allergic/immunologic complaints and Denies wheezing [facility] Family History Family History Father Chronic obstructive pulmonary disease Son Stomach cancer Sibling Lung cancer Social History Social History Smoking status: Former smoker Alcohol intake: never Substance use: never Do You Feel Safe in your Home?: Yes Lack of Transportation: No Lack of Food: Never True Current Housing: I Have Housing Concerned About Future Housing: No Difficulty Paying Gas/Electric Bills: No Difficulty Paying for Meds: No Currently Unemployed: No Education: High School Diploma/GED Difficulty w/ Childcare or Family Care: No Spiritual care concerns: No Meds Home Medications and Allergies Home Medications ?Medication ?Instructions ?Recorded ?Confirmed ?Type amlodipine 5 mg tablet 5 mg PO DAILY 08/13/24 08/13/24 History atorvastatin 80 mg tablet 80 mg PO DAILY 08/13/24 08/13/24 History clopidogrel 75 mg tablet 75 mg PO DAILY 08/13/24 08/13/24 History ezetimibe 10 mg tablet 10 mg PO DAILY 08/13/24 08/13/24 History losartan 100 mg tablet 100 mg PO DAILY 08/13/24 08/13/24 History metformin 500 mg tablet,extended 500 mg PO QPM 08/13/24 08/13/24 History release 24 hr Allergies Allergy/AdvReac Type Severity Reaction Status Date / Time No Known Allergies Allergy Verified 08/13/24 17:39 Vital Signs Vital Signs - 24 hr 08/13/24 17:41 08/13/24 18:15 08/13/24 18:15 Temperature 97.3 F L Pulse Rate 84 77 79 Respiratory Rate 16 Blood Pressure 115/70 140/69 128/74 Pulse Oximetry 98 Oxygen Delivery 08/13/24 18:16 08/13/24 19:59 08/13/24 20:26 Temperature Pulse Rate 88 89 80 Respiratory Rate 20 17 Blood Pressure 127/70 113/53 L 113/53 L Pulse Oximetry 95 94 Oxygen Delivery 08/13/24 20:53 08/13/24 20:57 08/13/24 21:29 Temperature 97.1 F L Pulse Rate 66 79 Respiratory Rate 20 Blood Pressure 123/62 Pulse Oximetry 98 Oxygen Delivery Room Air 08/14/24 00:00 08/14/24 01:55 08/14/24 04:00 Temperature 97.2 F L Pulse Rate 75 67 66 Respiratory Rate 18 Blood Pressure 120/50 L Pulse Oximetry 97 Oxygen Delivery 08/14/24 06:00 08/14/24 06:00 08/14/24 06:05 Temperature 97.4 F L 97.4 F L 97.5 F L Pulse Rate 58 L 58 L 61 Respiratory Rate 20 20 20 Blood Pressure 139/64 139/64 155/77 H Pulse Oximetry 99 99 100 Oxygen Delivery 08/14/24 06:10 08/14/24 08:00 08/14/24 08:00 Temperature 97.0 F L 97.3 F L Pulse Rate 70 68 Respiratory Rate 20 16 Blood Pressure 131/56 L 149/62 H Pulse Oximetry 98 98 Oxygen Delivery Room Air Exam Const: General: no acute distress Orientation/consciousness: oriented to person, oriented to place and oriented to time HENMT: Head: normocephalic and atraumatic Ears: hearing grossly normal bilaterally and external ears normal Face/Nose/Sinus: Normal external nose present Mouth: Yes Normal oral and palatal mucosa present Eyes: General: appearance normal, both eyes and all related structures Eyelids: eyelids normal Conjunctivae: conjunctivae normal Pupils: Equal, round and reactive pupils present EOM: No Nystagmus present Neck: Neck: normal visual inspection Resp: Effort & Inspection: normal respiratory effort Skin: General skin exam: normal color and no rashes or lesions noted Neuro: General: oriented to person, oriented to place and oriented to time Cranial nerves: Yes CN's II-XII intact bilaterally, Yes Equal, round and reactive pupils present, Yes Bilaterally intact EOM present, Yes Nystagmus not present, Yes Normal facial strength present, Yes facial symmetry, Yes Midline tongue present, Yes Symmetric palate elevation present, Yes Normal hearing present, Yes Ability to bilaterally elevate shoulders present and No Nystagmus present Speech: normal speech Motor exam (neuro): 5/5 motor strength present throughout, Normal motor muscle tone present throughout and Motor abnormalities not present Sensory Exam: normal sensation Deep tendon reflexes (DTR's): Right triceps reflex intensity grade: 1+, Left triceps reflex intensity grade: 1+, Rt Biceps (C5, C6): 1+, Left biceps reflex intensity grade: 1+, Right brachioradialis reflex intensity grade: 1+, Left brachioradialis reflex intensity grade: 1+, Right patellar reflex intensity grade: 1+, Left patellar reflex intensity grade: 1+, Right ankle reflex intensity grade: 0 and Left ankle reflex intensity grade: 0 Coordination: [id number] test normal, tandem gait normal and Romberg test negative Extrem: General: normal to inspection Psych: Appearance: grossly normal Mental Status: mental status grossly normal Affect: normal affect Attitude: cooperative Results Labs 08/14/24 04:35 08/14/24 04:35 Labs: Short CBC 08/13/24 08/14/24 Range/Units 18:09 04:35 WBC 13.1 H 8.7 (4.5-10.0) K/mm3 Hgb 11.9 L 11.1 L (12.0-15.0) g/dL Hct 38.4 36.3 L (37.0-47.0) % Plt Count 302 300 (150-375) k/mm3 [facility] 08/13/24 08/14/24 18:09 04:35 Sodium 136 L 138 Potassium 4.2 3.9 Chloride 105 106 Carbon Dioxide 21 L 23 BUN 13 13 Creatinine 1.17 H 0.89 Glucose 211 H 104 Calcium 9.7 9.5 Cardiac Enzymes 08/13/24 Range/Units 18:09 Troponin I < 0.012 (0.000-0.034) ng/mL Liver Function 08/13/24 08/14/24 Range/Units 18:09 04:35 Total Bilirubin 0.8 0.5 (0.2-1.3) mg/dL AST 30 21 (14-36) U/L ALT 19 17 (6-35) U/L Alkaline Phosphatase 86 86 (38-126) U/L Albumin 4.2 3.9 (3.5-5.1) g/dL Urine 08/13/24 Range/Units 19:37 Urine Color Yellow (Yellow) Urine Appearance Turbid H (Clear) Urine pH 5.5 (5.0-9.0) Ur Specific [place] 1.017 (1.001-1.035) Urine Protein 1+ H (Negative) mg/dL Urine Glucose (UA) Negative (Negative) mg/dL Imaging My impression: Multiple areas of white matter hyperintensity noted on T2 FLAIR. No hyperintensities noted on DWI sequence. No significant hyperintensity in brainstem area. CT scan of the brain did not show any significant abnormalities. Radiologist's impression: Same
--- NOTE | 2024-08-14 15:07 | PM.DS ---
DS: Admitting Diagnosis Discharge Date 08/14/2024 Admitting Diagnosis Near syncope UTI DS: Discharge Diagnosis Discharge Diagnosis (1) Near syncope: Code(s): R55 - Syncope and collapse Status: Acute (2) Dyslipidemia: Code(s): E78.5 - Hyperlipidemia, unspecified Status: Acute (3) Non-insulin dependent diabetes mellitus: Status: Acute (4) UTI (urinary tract infection): Code(s): N39.0 - Urinary tract infection, site not specified Status: Acute DS: Summary Hospital Course Reason for hospitalization: near syncope constipation Hospital Course: Pinky Yao is a 73 year old female who presented to the emergency room with history that to while she was on the commode while straining because of constipation she developed a feeling as if she is going to pass out but she did not quite pass out. This apparently went on for very long time almost 30 minutes or so. She has not had spells such as this in the past. She had a stroke in May which left her with some difficulty with weakness on the right side of the body. She was in [facility] for almost 7 days and thereafter and rehab. She has history of diabetes mellitus. CT scan of brain performed on this admission shows the left thalamic infarct. A CT angiogram of the head and neck was performed in August 2019 at this hospital which did not show any significant abnormality. MRI of the brain was performed this morning which shows old infarct in the was or bilateral basal ganglia left more than right side and as the left thalamus. No acute infarcts were seen. At this time she denies any headache, difficulty speech or swallowing. She denies any weakness in upper lower limbs. Work-up findings: CTA Head and neck: 1. No cervical arterial dissection or cerebral artery aneurysm. 2. No carotid bulb stenosis. Scattered arterial sclerosis with less than 20% carotid siphon stenosis bilaterally. 3. Mild age-related findings. 4. Diffuse lung mosaic attenuation, more likely air trapping and ground glass opacities.5. Thyroid nodules. CXR: Mild interstitial edema versus chronic interstitial change. Head CT: Possible focal left thalamic infarct of indeterminate age, consider MR of the brain for further evaluation. CT chest: Moderate emphysema. Evidence of prior granulomatous diseaseWBC 13.1; HGB 11.9; MCV 81; PLT 302 Na 136; K 4.2; Cl 105; CO2 21; a/G10; BUN 13; CR 1.17; GFR > 45. Unremarkable complete blood chemistries . Troponin I: 0.012; ECG: NSR; inferior infarct; no overt findings concerning for ischemia UA: Positive nitrites, 3+ LE, > 100 WBC, 4+ bacteria Neurology consulted regarding near syncopal episode. Ordered an echocardiogram and brain MRI. MRI showed old infarct in the was or bilateral basal ganglia left more than right side and as the left thalamus. No acute infarcts were seen.She is currently on Clopidogrel for the previous CVA that she had in 05/2024. After receiving IVF and working with PT/OT, she was found to be able to ambulate completely independent and PT signed off of her no longer requiring an further PT services. US carotid duplex BI was also taken and showed <50% stenosis in the right internal carotid artery, <50% stenosis in the left internal carotid artery and Multinodular goiter couple nodule which are likely criteria for thyroid biopsy. Recommend formal thyroid ultrasound for more comprehensive assessment and for risk stratification. She will be instructed to follow up with her PCP regarding these results. Pt is otherwise very stable. She was able to work with PT/OT today with no concerns and was able to ambulate without any difficulties or syncopal episodes. Given unremarkable findings on MRI, head CT and carotid US, pt stable for discharge. Echo is still pending at this time but will follow up with the patient regarding these results as patient expresses interest in getting discharged. I will monitor the echocardiogram results and followup with the patient if any concerning findings are reported. At no point during my examinations throughout the day has the patient complained of any dizziness, nausea/vomiting, or syncopal episodes. Neurological exam is benign and she is A&Ox4 Patient likely had a vasovagal syncopal response that may have been exacerbated by UTI. She will be prescribed Augment for 5 days. Pt to be discharged. Status at Discharge Functional status at discharge: independent ambulation Overall status at discharge: patient is back to baseline Time Spent with Patient Time attestation: Total time spent providing and/or coordinating discharge services: 45 Exam Narrative: Gen - well appearing female in no acute respiratory distress who is nontoxic-appearing lying semi recumbent in bed HEENT - normocephalic. Atraumatic. Pupils equal round and reactive. Extraocular motions intact. Sclera clear and anicteric. Nares patent. Oropharynx was clear. No oral lesions. Moist mucous membranes. Tongue was midline. Palate vilma symmetrically. No facial asymmetry. Neck - neck was supple. No dominant adenopathy, thyromegaly or masses. 2+ carotid upstrokes without bruits. Chest - lungs are clear to auscultation bilaterally. No wheezes or crackles. Breast exam was deferred. CV - heart was regular rate and rhythm. S1-S2. No murmurs gallops or rubs. Abd - abdomen was soft. Nontender. Nondistended. Positive bowel sounds. No organomegaly or masses. Ext - no clubbing, cyanosis or edema. 2+ DP pulses bilaterally. Neuro - patient is alert and oriented x4. Strength is 5/5 in both upper and lower extremities. Cranial nerves 2-12 are intact. Speech is clear. Psych - normal mood and affect. Patient is pleasant and cooperative. Skin - warm and dry. No rashes noted. DS: Data Data Completed and Pending Pending studies at discharge: Echocardiogram Labs on day of discharge: Labs from last 24 hours 08/14/24 08/13/24 08/13/24 04:35 19:37 18:09 WBC 8.7 13.1 H RBC 4.38 4.73 Hgb 11.1 L 11.9 L Hct 36.3 L 38.4 MCV 82.9 81.2 MCH 25.3 L 25.2 L MCHC 30.6 L 31.0 L RDW 15.0 H 15.0 H Plt Count 300 302 MPV 9.3 9.1 Immature Gran % (Auto) 0.5 0.5 Neut % (Auto) 68.2 85.7 H Lymph % (Auto) 17.5 L 6.0 L Mcculloch % (Auto) 10.8 H 6.4 Eos % (Auto) 2.0 0.7 Baso % (Auto) 1.0 0.7 Lymph # (Auto) 1.52 0.79 L M[place]ulloch # (Auto) 0.9 H 0.8 H Eos # (Auto) 0.2 0.1 Baso # (Auto) 0.1 0.1 Abs Immat Gran (auto) 0.04 H 0.06 H Absolute Neuts (auto) 5.9 11.2 H Absolute Nucleated RBC 0.000 0.000 Nucleated RBC % 0.0 0.0 Sodium 138 136 L Potassium 3.9 4.2 Chloride 106 105 Carbon Dioxide 23 21 L Anion Gap 9 10 BUN 13 13 Creatinine 0.89 1.17 H Estim Creat Clear Calc 50 34 Estimated GFR > 60 45 L Glucose 104 211 H Hemoglobin A1c 6.7 H Calcium 9.5 9.7 Total Bilirubin 0.5 0.8 AST 21 30 ALT 17 19 Alkaline Phosphatase 86 86 Troponin I < 0.012 Total Protein 7.0 7.0 Albumin 3.9 4.2 Triglycerides 45 Cholesterol 100 LDL Cholesterol Direct < 30 HDL Direct 51 Urine Color Yellow Urine Appearance Turbid H Urine pH 5.5 Ur Specific [place] 1.017 Urine Protein 1+ H Urine Glucose (UA) Negative Urine Ketones Trace H Ur Blood (Man) 1+ H Urine Nitrate Positive H Urine Bilirubin Negative Urine Urobilinogen 1.0 Add Ur Microanalysis Reviewed Leukocyte Esterase Rfl 3+ H Urine RBC 6-10 H Urine WBC >100 H Ur Squamous Epith Cells Moderate Urine Bacteria 4+ H Urine Casts >20 Imaging Radiologist's impression: US carotid duplex BI IMPRESSION: 1. <50% stenosis in the right internal carotid artery. 2. <50% stenosis in the left internal carotid artery. 3. Multinodular goiter couple nodule which are likely criteria for thyroid biopsy. Recommend formal thyroid ultrasound for more comprehensive assessment and for risk stratification. MR brain/brain stem wo/w con IMPRESSION: 1. 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 No acute intracranial process or abnormally enhancing brain lesions. Chest XR Mild interstitial edema versus chronic interstitial change. CT brain wo con IMPRESSION: Possible focal left thalamic infarct of indeterminate age, consider MR of the brain for further evaluation. Otherwise, no acute intracranial process. Discharge Plan Discharge Attending physician on discharge: Lane Pate Consulting providers: Chong Dyer Discharging Clinician: Lane Pate Anticipated Discharge Date/Time: 08/14/24 15:02 Patient Disposition: Home Activity: as tolerated Diet: as tolerated Discharge Instructions: Take all medications as prescribed even if feeling better. You will be prescribed a 5 day course of Augmentin for your UTI. Eat well balanced meals and stay hydrated Keep active to remain strong Trend urine output If you should experience any chest pain, shortness of breath, temps >100.4 or any other worrisome symptoms please follow up with your PCP come back to the hospital Follow up with your primary in 2-3 weeks Discuss with your Primary regarding the results of your Carotid doppler ultrasound and the possible need for a thyroid biopsy. It has been a pleasure taking care of you thank you for using our services Patient Instructions: Antibiotic Form, Clopidogrel (By mouth), Safe Use of Anticoagulants (DC) Patient Language: [place] Stand Alone Forms: General Discharge Information Follow-up/Referrals: Gabby,MD Johnie [Primary Care Provider] - Discharge Medications: New amoxicillin-pot clavulanate 875-125 mg tablet 1 tablet PO Q12H Qty: 10 0RF Continued amlodipine 5 mg tablet 5 mg PO DAILY atorvastatin 80 mg tablet 80 mg PO DAILY clopidogrel 75 mg tablet 75 mg PO DAILY metformin 500 mg tablet extended release 24 hr 500 mg PO QPM ezetimibe 10 mg tablet 10 mg PO DAILY losartan 100 mg tablet 100 mg PO DAILY Date of admission: 08/14/24 07:27 Primary Care Provider: GabbyJohnie Admitting Provider: Levi Bliss Attending physician on admission: Lane Pate Condition: Improved Quality VTE Prophylaxis VTE prophylaxis: mechanical ordered and pharmacologic ordered
== END 2024-08-14 17:00 | disposition home or self-care (01) | DRG 312 ==
LOC: ANHED 20:13 → ANH3MED 20:18
PROVIDERS: Admitting Provider Internal Medicine; Emergency Provider Emergency Medicine; PCP Internal Medicine; Visit Provider Physician Assistant
DX: R55 Syncope and collapse (principal); I69.351 Hemiplegia and hemiparesis following cerebral infarction affecting right dominant side; N39.0 Urinary tract infection, site not specified; I10 Essential (primary) hypertension; E78.5 Hyperlipidemia, unspecified; E11.9 Type 2 diabetes mellitus without complications; R29.702 NIHSS score 2; Z79.02 Long term (current) use of antithrombotics/antiplatelets
CPT/HCPCS: 36415; 70450; 70553; 71046; 80053; 80061; 81001; 83036; 84484; 85025; 87040; 92610; 93005; 93306; 93880; 96361; 96365; 96366; 96375; 97161; 99285; A9270; A9577; G0378; J0696; J1644; J2060; J7030

== ENCOUNTER 2024-10-18 08:51 | Outpatient (CLI) | payer MEDICARE, SELFPAY ==
--- NOTE | ~2024-10-18 | US_ITS ---
EXAMINATION: US thyroid DATE: 10/18/2024 09:42 INDICATION: Multinodular goiter TECHNIQUE: Multiple ultrasound images of the thyroid were obtained. COMPARISON: None. FINDINGS: The right thyroid lobe measures 5.2 x 4.3 x 3.7 cm. Within the right lobe of the thyroid gland is a 40 x 32 x 29 mm nodule: Composition -mixed cystic and solid (1) Echogenicity -primarily hyperechoic and isoechoic (1) Shape - wider than tall Margin - smooth Echogenic foci - none. = TR2 not suspicious. The left thyroid lobe measures 5.1 x 3.2 x 2.1 cm. Within the lower pole of the left lobe of the thyroid gland is a 15 x 13 x 16 mm nodule: Composition - spongiform Echogenicity -hyperechoic and isoechoic (1) Shape - wider than tall Margin - smooth Echogenic foci -punctate echogenic foci (3). = TR 4, moderately suspicious Greater than 10 mm follow-up. Greater than 15 mm, FNA Within the mid pole of the left lobe of the thyroid gland is a 11 x 16 x 11 mm nodule: Composition - spongiform Echogenicity -hypoechoic (2) Shape -taller than wide (3) Margin - smooth Echogenic foci -punctate echogenic foci (3). = TR 5, highly suspicious. Greater than 1 cm, FNA. The isthmus measures 0.2cm in anterior to posterior dimension. There is otherwise normal echotexture and echogenicity throughout the remainder of the thyroid gland. No additional discrete nodules identified. Normal vascular flow is present. IMPRESSION: TR 5 nodule within the mid pole of the left lobe of the thyroid gland which is highly suspicious for which FNA is recommended. Reviewed, dictated and finalized at location A.
== END 2024-10-18 08:52 | disposition home or self-care (01) ==
LOC: MICIMG 08:52
PROVIDERS: PCP Internal Medicine; Visit Provider Internal Medicine
DX: E04.9 Nontoxic goiter, unspecified (principal)
CPT/HCPCS: 76536

== ENCOUNTER 2024-11-24 09:04 | Outpatient (CLI) | payer MEDICARE, SELFPAY ==
--- OUTSIDE RECORDS SUMMARY | 2024-11-24 09:10 | XMS_ITS | Clinical Summary ---
Author Organization [facility] [place] [facility] Address [address] [place] [address] Care Team Providers Care Nursery Nurse Name Role Phone Johnie Ordaz MD Primary Care Provider + [phone] Allergies No known active allergies Medications blood [...] by mouth daily 30 tablet 5 5 Active metFORMIN (GLUCOPHAGE) 500 mg tablet Take [...] 03/09/2023 Assessment & Plan (03/09/2023 12:52 PM HEAT TREATER): Differential diagnosis would include benign nodule (macrofollicular [...] review. In addition she has an ongoing cardiac catheterization technologist to screen for atrial fibrillation which should [...] Never Tobacco Cessation:Counseling Given: Not Answered [facility] Utilities Answer Date Recorded In the past 12 months has [employer], [employer], oil, or water [employer] threatened to shut off services in your [...] How often do you attend chur or tenriism services? Never 05/22/2024 Do you belong to any clubs o r organizations such as quaker groups, unions, fraternal or athletic groups, or [...] were you homeless or living in a senior care (including now)? No 05/22/2024 Personal Safety Answer Date Recorded Have you ever been in or are you currently in a harmful physical or emotional relationship or is someone making you feel afraid or unsafe? Denies 05/21/2024 Comments No Sex and Gender Information Value Date Recorded Sex Assigned at Not on file Legal Sex Female 8:13 PM HEAT TREATER Gender Identity Not on file Sexual Orientation Not on file Obstetrics History Last Filed Vital Signs Vital Sign Reading Time Taken Comments Blood Pressure 120/60 07/10/2024 9:14 AM CDT Pulse 91 07/10/2024 9:14 AM CDT Temperature 36.3 C (97.3 F) 05/25/2024 11:34 AM HEAT TREATER Respiratory Rate 19 07/10/2024 9:14 AM CDT Oxygen Saturation 97% 07/10/2024 9:14 AM CDT Inhaled Oxygen Concentration - - Weight 74.8 kg (165 lb) 07/10/2024 9:14 AM CDT Height 165.1 cm (5' 5) 07/10/2024 9:14 AM CDT Body Mass Index [...] 03/09/2023 Hemoglobin A1C 11/18/2024 05/21/2024 Influenza Vaccine (#1) 2025 , 02/25/2020, 03/08/2019, Additional history exists Lipid Panel 05/21/2025 05/21/2024 Fall Risk Assessment 05/25/2025 05/25/2024, 03/09/20 23 eGFR 05/29/2025 05/29/2024, 05/04, 05/25/2024, Additional history exists DTaP/Tdap/Td Vaccine (2 - Td or Tdap) 03/17/2029 03/17/2019 Pneumococcal vaccine 65+ Completed 020, 06/01/2016, 11/27/2013 Procedures Procedure Name Priority Date/Time Associated Diagnosis Comments EGFR Routine 05/29/2024 6:03 AM HEAT TREATER HEMOGLOBIN A1C STAT 05/21/2024 3:03 PM HEAT TREATER LIPID PANEL STAT 05/21/2024 3:03 PM HEAT TREATER from Last 3 Months or Most Recently Relevant to Health Maintenance Results * eGFR (05/29/2024 6:03 AM HEAT TREATER) eGFR 62 >=60 mL/min/1. 73 m2 JARED [...] was last reviewed 2021. Testing performed by: [facility], [address] [place] [address]., [id number] Blood 05/29/2024 6:03 AM HEAT TREATER 05/29/2024 8:14 AM HEAT TREATER us Notinfile Unknown LAB BLOOD ORDERABLES Final Res ult JARED [address] [facility] Department [place] [address] * (ABNORMAL) Hemoglobin A1c (05/21/2024 3:03 PM HEAT TREATER) Hgb A1C 6.7(H) 4.0 - 5.6 % Comment:Testing performed by : [address] [address] Estimated Average Glucose 146 mg/dL JARED PÉREZ Comment: The ADA recommends reporting an estimated Average Glucose (eAG) with all Hemoglobin A1c results using the equation derived from a study of 507 normal and diabetic adults. Minority populations were underrepresented and children were not included. (Diabetes Care 31:0774-0962, 2008). The eAG is not equivalent to a fasting glucose. Testing performed by: [address] [address] Blood 05/21/2024 3:03 PM HEAT TREATER 05/21/2024 3:05 PM HEAT TREATER us Jenise Joyce NP LAB BLOOD ORDERABLES Final Re sult JARED [address] [facility] Department [place] [address] * Lipid panel (05/21/2024 3:03 PM HEAT TREATER) Cholesterol 167 30 - 199 mg/dL Comment: [...] last revised on 2017. Testing performed by: [address] [address] Triglycerides 100 <=149 mg/dL JARED Comment: Interpretive [...] last revised on 2017. Testing performed by: [address] [address] HDL 44 >=40 mg/dL JARED Comment: Interpretive Data Ages < [...] last revised on 2017. Testing performed by: [facility], [address] [place] [address]., [id number] LDL, calculated 105 <=129 mg/dL JARED Comment: [...] last revised on 2023. Testing performed by: [address] [address] Non-HDL Cholesterol 123 mg/dL JARED Comment: Interpretive Data Ages < [...] last revised on 2017. Testing performed by: [facility], [address] [place] [address]., [id number] Chol/HDL ratio 4 JARED PÉREZ Comment:Testing performed by : [facility], [address] [place] [address]., [id number] Blood 05/21/2024 3:03 PM HEAT TREATER 05/21/2024 3:05 PM HEAT TREATER us Jenise Joyce NP LAB BLOOD ORDERABLES Final Re sult PETRTARA PÉREZ [address] [facility] Department [place] [address] from Last 3 Months or Most Recently Relevant to Health Maintenance Insurance [employer] [address] [facility] MEDICARE ADVANTAGE Advance Directives For more information, please contact: [phone] * Full Code (Latest Code Status on File) Date Activated Date Inactivated Comments 05/21/2024 3:27 PM 05/25/2024 7:46 PM Care Teams Nursery Nurse Relationship Specialty Start Date End Date Johnie Ordaz MD PCP - General Internal Medicine 08/23/20
--- OUTSIDE RECORDS SUMMARY | 2024-11-24 09:10 | XMS_ITS | Data Portability ---
Author Organization [facility] Angel[facility] Address [address] [facility] [place] [address] Care Team Providers Care Medical Billing Manager Name Role Phone NOEL ORDAZ Primary Care Provider Assessment Encounter Date Assessment Date Assessment LastModified by Organization Details LastModified Time 03/03/2024 03/03/2024 last colonoscopy 2021 diverticulosis without [...] of her diabetes follow up 3 months [email or web address] Not available 03/04/2024 16:49:35 04/07/2024 04/07/2024 the [...] has been reviewed has an appointment with crystalizer tender for comprehensive foot exam 04/11/2024. Offered her home ambulatory blood pressure monitoring through our program and she declined [email or web address] Not available 04/08/2024 14:36:02 06/23/2024 06/23/2024 I will see her back 2 months we will continue current therapy refill the amlodipine 5 mg daily significance of her findings discussed see me in 2 months hospital records reviewed Not available 06/24/2024 21:05:01 08/23/2024 08/23/2024 Suspect a vasovagal reaction in this patient with multiple risk factors for CVA including previous CVA her workup has been completed we will continue with secondary risk factor modification she will keep her regular appointment and we will get an ultrasound if needed for her thyroid I believe she had a FNA in 2022 keep regular follow up hospital records [email or web address] [id number] Not available 08/27/2024 21:17:50 10/13/2024 10/13/2024 We will try to get her back in physical therapy I encouraged to get the thyroid ultrasound ultrasound done chiki. Other diagnosis and medications have been discussed follow up in [address] [email or web address] [id number] Not available 10/14/2024 16:46:11 Plan of Treatment Reminders Order Date Submit Date Provider Last Modified By Organization Details Last Modified Time Details Appointments ANY 15 2024 10:00A M Noel Ordaz MD Not available Not available Not available Lab HbA1c (hemoglob in A1c), blood 2024 025 [facility], [address], [place], [address], 10/14/2024 06:15:42 lipid panel, serum 2024 025 [facility], [address], [place], [address], 10/14/2024 06:15:39 CMP, serum or plasma 2024 025 [facility], [address], [place], [address], 10/14/2024 06:15:41 CBC w/ auto diff 2024 025 [facility], [address], [place], [address], 10/14/2024 06:15:43 Referral physical therapist referral 2024 025 [facility], [facility] [facility], [place], [address], 10/23/2024 13:25:22 podiatris t referral 2023 024 adin Neno Hernandez DPM, [address] [facility] [address], [place], [address], 09/27/2024 15:40:03 Procedures None recorded. Surgeries None recorded. Imaging None recorded. Medication Orders amlodipin e 5 mg tablet 2024 025 [id number] [facility], [address] [place] [address], [address], 06/23/2024 12:47:57 Patient TargetsNo targets recorded. 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, [place], [address], 10/14/2024 06:15:39 10/14/1910/14/2024 LIPID PANEL triglyceride s 75 mg/dL 0-149 Not Available [facility] ([facility]) [address] [facility], [place], [address], 10/14/2024 06:15:39 10/14/1910/14/2024 LIPID PANEL HDL cholesterol 50 mg/dL >39 Not Available [facility] ([facility]) [address] [facility] [place], [address], 10/14/2024 06:15:39 10/14/19 25 10/14/2024 LIPID PANEL VLDL cholesterol patricia 16 mg/dL 5-40 Not Available [facility] ([facility]) [address] [facility] [place], [address], 10/14/2024 06:15:39 10/14/19 25 10/14/2024 LIPID PANEL LDL chol calc ([facility]) 36 mg/dL 0-99 Not Available [facility]) [address] [place], [address], 10/14/2024 06:15:39 10/14/19 25 10/14/2024 COMP. METAB OLIC PANEL (14) glucose 109 mg/dL 70-99 above high normal Not Available [facility] ([facility]) [address] [place], [address], 10/14/2024 06:15:41 10/14/19 25 10/14/2024 COMP. METAB OLIC PANEL (14) BUN 11 mg/dL 8-27 Not Available [facility] ([facility]) [address] [place], [address], 10/14/2024 06:15:41 10/14/19 25 10/14/2024 COMP. METAB OLIC PANEL (14) creatinine 0.94 mg/dL 0.57-1 .00 Not Available [facility] ([facility]) [address] [place], [address], 10/14/2024 06:15:41 10/14/19 25 10/14/2024 COMP. METAB OLIC PANEL (14) eGFR 64 mL/mi n/1.7 3 >59 Not Available [facility] ([facility]) [address] [place], [address], 10/14/2024 06:15:41 10/14/19 25 10/14/2024 COMP. METAB OLIC PANEL (14) BUN/creatini ne ratio 12 12-28 Not Available [facility] ([facility]) [address] [facility], [place], [address], 10/14/2024 06:15:41 10/14/19 25 10/14/2024 COMP. METAB OLIC PANEL (14) sodium 141 mmol/ L 134-14 4 Not Available [facility] ([facility]) [address] [facility], [place], [address], 10/14/2024 06:15:41 10/14/19 25 10/14/2024 COMP. METAB OLIC PANEL (14) potassium 4.7 mmol/ L 3.5-5. 2 Not Available [facility] ([facility]) [address] [facility], [place], [address], 10/14/2024 06:15:41 10/14/19 25 10/14/2024 COMP. METAB OLIC PANEL (14) chloride 107 mmol/ L 96-106 above high normal Not Available [facility] ([facility]) [address] [place], [address], 10/14/2024 06:15:41 10/14/19 25 10/14/2024 COMP. METAB OLIC PANEL (14) carbon dioxide, total 22 mmol/ L 20-29 Not Available [facility] ([facility]) [address] [place], [address], 10/14/2024 06:15:41 10/14/19 25 10/14/2024 COMP. METAB OLIC PANEL (14) calcium 10.3 mg/dL 8.7-10 .3 Not Available [facility] ([facility]) [address] [place], [address], 10/14/2024 06:15:41 10/14/19 25 10/14/2024 COMP. METAB OLIC PANEL (14) protein, total 6.5 g/dL 6.0-8. 5 Not Available [facility] ([facility]) [address] [place], [address], 10/14/2024 06:15:41 10/14/19 25 10/14/2024 COMP. METAB OLIC PANEL (14) albumin 4.1 g/dL 3.8-4. 8 Not Available [facility] ([facility]) [address] [place], [address], 10/14/2024 06:15:41 10/14/19 25 10/14/2024 COMP. METAB OLIC PANEL (14) globulin, total 2.4 g/dL 1.5-4. 5 Not Available [facility] ([facility]) [address] [place], [address], 10/14/2024 06:15:41 10/14/19 25 10/14/2024 COMP. METAB OLIC PANEL (14) bilirubin, total 0.4 mg/dL 0.0-1. 2 Not Available [facility] ([facility]) [address] [place], [address], 10/14/2024 06:15:41 10/14/19 25 10/14/2024 COMP. METAB OLIC PANEL (14) alkaline phosphatase 94 IU/L 44-121 Not Available [facility]) [address] [place], [address], 10/14/2024 06:15:41 10/14/19 25 10/14/2024 COMP. METAB OLIC PANEL (14) AST (SGOT) 19 IU/L 0-40 Not Available [facility] ([facility]) [address] [place], [address], 10/14/2024 06:15:41 10/14/19 25 10/14/2024 COMP. METAB OLIC PANEL (14) ALT (SGPT) 12 IU/L 0-32 Not Available [facility] ([facility]) [address] [facility], [place], [address], 10/14/2024 06:15:41 10/14/19 25 10/13/2024 HEMOG LOBIN A1C hemoglobin A1C 6.7 % 4.8-5. 6 above high normal Predi abete s: 5.7 - 6.4 Diabe valentino: >6.4 Glyce josé miguel contr ol for adult s with diabe valentino: <7.0 Not Available [facility] ([facility]) [address] [facility], [place], [address], 10/14/2024 06:15:42 10/14/19 25 10/13/2024 CBC WITH DIFFE RENTI AL/PL ATELE T WBC 9.3 x10e3 /uL 3.4-10 .8 Not Available [facility] ([facility]) [address] [place], [address], 10/14/2024 06:15:43 10/14/19 25 10/13/2024 CBC WITH DIFFE RENTI AL/PL ATELE T RBC 4.88 x10e6 /uL 3.77-5 .28 Not Available [facility] ([facility]) [address] [place], [address], 10/14/2024 06:15:43 10/14/19 25 10/13/2024 CBC WITH DIFFE RENTI AL/PL ATELE T hemoglobin 12.0 g/dL 11.1-1 5.9 Not Available [facility] ([facility]) [address] [place], [address], 10/14/2024 06:15:43 10/14/19 25 10/13/2024 CBC WITH DIFFE RENTI AL/PL ATELE T hematocrit 39.7 % 34.0-4 6.6 Not Available [facility] ([facility]) [address] [place], [address], 10/14/2024 06:15:43 10/14/19 25 10/13/2024 CBC WITH DIFFE RENTI AL/PL ATELE T MCV 81 fL 79-97 Not Available [facility] ([facility]) [address] [facility], [place], [address], 10/14/2024 06:15:43 10/14/19 25 10/13/2024 CBC WITH DIFFE RENTI AL/PL ATELE T MCH 24.6 pg 26.6-3 3.0 below low normal Not Available [facility] ([facility]) [address] [place], [address], 10/14/2024 06:15:43 10/14/19 25 10/13/2024 CBC WITH DIFFE RENTI AL/PL ATELE T MCHC 30.2 g/dL 31.5-3 5.7 below low normal Not Available [facility] ([facility]) [address] [facility], [place], [address], 10/14/2024 06:15:43 10/14/19 25 10/13/2024 CBC WITH DIFFE RENTI AL/PL ATELE T RDW 13.1 % 11.7-1 5.4 Not Available [facility] ([facility]) [address] [place], [address], 10/14/2024 06:15:43 10/14/19 25 10/13/2024 CBC WITH DIFFE RENTI AL/PL ATELE T platelets 304 x10e3 /uL 150-45 0 Not Available [facility] ([facility]) [address] [place], [address], 10/14/2024 06:15:43 10/14/19 25 10/13/2024 CBC WITH DIFFE RENTI AL/PL ATELE T neutrophils 72 % notest ab. Not Available [facility] ([facility]) [address] [place], [address], 10/14/2024 06:15:43 10/14/19 25 10/13/2024 CBC WITH DIFFE RENTI AL/PL ATELE T lymphs 16 % notest ab. Not Available [facility] ([facility]) [address] [facility], [place], [address], 10/14/2024 06:15:43 10/14/19 25 10/13/2024 CBC WITH DIFFE RENTI AL/PL ATELE T monocytes 8 % notest ab. Not Available [facility] ([facility]) [address] [facility], [place], [address], 10/14/2024 06:15:43 10/14/19 25 10/13/2024 CBC WITH DIFFE RENTI AL/PL ATELE T eos 2 % notest ab. Not Available [facility] ([facility]) [address] [facility], [place], [address], 10/14/2024 06:15:43 10/14/19 25 10/13/2024 CBC WITH DIFFE RENTI AL/PL ATELE T basos 1 % notest ab. Not Available [facility] ([facility]) [address] [facility], [place], [address], 10/14/2024 06:15:43 10/14/19 25 10/13/2024 CBC WITH DIFFE RENTI AL/PL ATELE T neutrophils (absolute) 6.8 x10e3 /uL 1.4-7. 0 Not Available [facility] ([facility]) [address] [facility], [place], [address], 10/14/2024 06:15:43 10/14/19 25 10/13/2024 CBC WITH DIFFE RENTI AL/PL ATELE T lymphs (absolute) 1.5 x10e3 /uL 0.7-3. 1 Not Available [facility] ([facility]) [address] [facility], [place], [address], 10/14/2024 06:15:43 10/14/19 25 10/13/2024 CBC WITH DIFFE RENTI AL/PL ATELE T monocytes(ab solute) 0.7 x10e3 /uL 0.1-0. 9 Not Available [facility] ([facility]) [address] [facility], [place], [address], 10/14/2024 06:15:43 10/14/19 25 10/13/2024 CBC WITH DIFFE RENTI AL/PL ATELE T eos (absolute) 0.2 x10e3 /uL 0.0-0. 4 Not Available [facility] ([facility]) [address] [facility], [place], [address], 10/14/2024 06:15:43 10/14/19 25 10/13/2024 CBC WITH DIFFE RENTI AL/PL ATELE T baso (absolute) 0.1 x10e3 /uL 0.0-0. 2 Not Available [facility] ([facility]) [address] [facility], [place], [address], 10/14/2024 06:15:43 10/14/19 25 10/13/2024 CBC WITH DIFFE RENTI AL/PL ATELE T immature granulocytes 1 % notest ab. Not Available [facility] ([facility]) [address] [facility], [place], [address], 10/14/2024 06:15:43 10/14/19 25 10/13/2024 CBC WITH DIFFE RENTI AL/PL ATELE T immature grans (abs) 0.1 x10e3 /uL 0.0-0. 1 Not Available [facility] ([facility]) [address] [facility], [place], [address], 10/14/2024 06:15:43 05/20/19 25 05/20/2024 CT, head + brain , w/o contr ast No observ ation record ed. [facility] [address] [place], [address], 05/24/2024 09:07:44 05/20/19 25 05/20/2024 XR, chest , 1 view No observ ation record ed. [facility] [address] [place], [address], 05/24/2024 09:07:56 05/20/19 25 05/20/2024 CT, angio gram, head + neck, w/wo contr ast No observ ation record ed. [facility] [address] [place], [address], 05/24/2024 09:08:50 05/20/19 25 05/20/2024 CT, angio gram, head, w/wo contr ast No observ ation record ed. [facility] [address] [place], [address], 05/24/2024 09:09:18 08/10/19 25 08/09/2024 CT, chest , w/o contr ast No observ ation record ed. [address], [place], [address], 08/11/2024 12:15:48 08/10/19 25 08/09/2024 CT, chest , w/o contr ast No observ ation record ed. [address], [place], [address], 08/23/2024 10:13:45 08/14/19 25 08/13/2024 CT, brain , w/o contr ast No observ ation record ed. [address], [place], [address], 08/14/2024 14:30:14 08/14/19 25 08/13/2024 XR, chest No observ ation record ed. [address], [place], [address], 08/14/2024 14:36:10 08/15/19 25 08/14/2024 MRI, brain , w/wo contr ast No observ ation record ed. [place] [id number] [facility] [address], [place], [address], 08/16/2024 09:35:45 08/15/19 25 08/14/2024 US, duple x, carot id arter y No observ ation record ed. [place] [id number] [facility] [address], [place], [address], 08/16/2024 09:36:52 08/15/19 25 08/14/2024 stres s echoc ardio gram with doppl er color flow (PROC ) No observ ation record ed. [place] [id number] [facility] [address], [place], [address], 08/16/2024 09:38:25 10/20/19 25 10/18/2024 US, thyro id No observ ation record ed. [facility] [address], [place], [address], 10/23/2024 14:43:57 10/21/19 25 10/18/2024 US, thyro id No observ ation record ed. [facility] [address], [place], [address], 10/23/2024 14:08:32 Result Notes None recorded. Problems Name Problem SNOMED Code Status Onset Date Resolution Date Notes Provider Name and Address Organization Details Recorded Time Diabetes mellitus 56830151 Active Kemi Oconnor RN null, [place] - [facility] 6 13:35:10 Essential hypertens ion 78642649 Active Ivan Schaefer MD Attn: Marielena fernandez,[address] [place], [address], [facility] 6 11:41:12 Nodular goiter 097694686 Active 2023 [facility] 2022 right follicle neg Noel Ordaz MD Attn: Marielena fernandez,[address] [facility], [place], [address], [place] [facility] 4 21:21:06 History of cerebrova scular accident 810828691 Active 2023 Noel Ordaz MD Attn: Marielena fernandez,[address] [facility], [place], [address], [place] [facility] 4 21:21:20 Dyslipide benson 178353135 Active 2023 Noel Ordaz MD Attn: Marielena fernandez,[address] [facility], [place], [address], [place] [facility] 4 21:21:32 Nodule of lung 603620967 Active 2023 Noel Ordaz MD Attn: Marielena fernandez,[address] [facility], [place], [address], [place] [facility] 5 21:16:33 Type 2 diabetes mellitus 14190594 Active 2023 Hermes Nichols MA null, [place] [facility] 4 11:09:11 Visual disturban ce 85494340 Active 2023 Hermes Nichols [place] null[place] [facility] 4 11:09:12 Closed fracture of proximal left humerus 300462628145 94537 Active 2023 Greta Rocha null, [place] [facility] 5 11:56:49 Fracture of distal end of left radius Active 2023 Greta Rocha null[place] [facility] 5 11:57:29 Constipat ion 48165284 Active 2023 Noel Ordaz MD Attn: Marielena fernandez,[address] [facility], [place], [address], [place] [facility] 4 20:12:28 Rectal hemorrhag e 02988671 Active 2023 Noel Ordaz MD Attn: Marielena fernandez,[address] [facility], [place], [address], [place] - [facility] 4 20:12:33 Chronic obstructi ve pulmonary disease 38902432 Active 2024 Imani Luma ALIREZA null, [facility] 14:50:17 Problem Notes None recorded. Procedures Surgical History Date Name Laterality Status Provider Name and Address Organization Details Recorded Time 05/03/19 15 Diagnostic colonoscopy completed Shankar ALIREZA Moore [facility] 06/28/2015 14:33:09 Dilation and Curettage completed Shankar Moore MA [facility] 06/28/2015 14:33:09 Caesarean Section completed Shankar Moore MA [facility] 06/28/2015 14:33:09 Mammogram screening completed Shankar JordanALIREZA bae [facility] 06/28/2015 14:33:09 Back Surgery completed Shankar Moore MA [facility] 06/28/2015 14:33:09 Tonsillectomy completed Shankar Moore MA [facility] 06/28/2015 14:33:09 Cholecystectomy completed Shankar Moore MA [facility] 06/28/2015 14:33:09 Anesth nose/sinus surgery completed Shankar Moore [facility] 06/28/2015 14:33:09 Tubal Ligation completed Shankar Jordankathia [facility] 06/28/2015 14:33:09 Imaging Results None recorded. Procedure Notes None recorded. Medical Equipment None [...] Not Available atorvastati n 80 mg tablet Take 1 tablet by mouth once daily 2024 active Not Available Not Available Not Avai lable azithromyci n 250 mg tablet TAKE 2 [...] TABLET BY MOUTH ONCE DAILY WITH SUPPER 2024 active Not Available Not Available Not Avai lable doxycycline hyclate 100 mg tablet TAKE 1 TABLET BY MOUTH TWICE DAILY FOR 7 DAYS 06/29 completed Not Available Not Available Not Available amoxicillin 875 mg-potassiu m clavulanate 125 mg tablet TAKE 1 TABLET BY MOUTH EVERY 12 HOURS 10/18 completed Not Available Not Available Not Available ezetimibe 10 mg tablet TAKE 1 TABLET BY MOUTH ONCE DAILY active Not Available Not Available No t Available nitrofurant oin monohydrate /macrocryst als 100 mg capsule TAKE 1 CAPSULE BY MOUTH TWICE DAILY FOR 5 DAYS 10/18 completed Not Available Not Available Not Available Januvia 100 mg tablet TAKE ONE TABLET BY MOUTH ONCE DAILY 06/29 completed Not Available Not Available Not Available Vitals Date Recorded Body height Body mass index (BMI) Body weight Heart rate Oxygen saturation Oxygen saturation in Arterial blood by Pulse oximetry Systolic And Diastolic Provider Name and Address Organization Details Last Updated DateTime 5 167.64 cm 27.2 kg/m2 05837.6 7 g 65 /min 98 % 98 % 142/60 mm[Hg] [facility] 5 09:57:47 Date Recorded Body height Body mass index (BMI) Body weight Heart rate Oxygen saturation Oxygen saturation in Arterial blood by Pulse oximetry Systolic And Diastolic Provider Name and Address Organization Details Last Updated DateTime 5 167.64 cm 27 kg/m2 91617.6 4 g 72 /min 97 % 97 % 136/72 mm[Hg] Claritza [facility] 5 10:15:54 Date Recorded Body height Body mass index (BMI) Body weight Heart rate Oxygen saturation Oxygen saturation in Arterial blood by Pulse oximetry Systolic And Diastolic Provider Name and Address Organization Details Last Updated DateTime 5 167.64 cm 27 kg/m2 01002.9 3 g 61 /min 97 % 97 % 112/64 mm[Hg] Imani Ge MA [facility] 5 10:59:13 Date Recorded Body height Body mass index (BMI) Body weight Heart rate Oxygen saturation Oxygen saturation in Arterial blood by Pulse oximetry Systolic And Diastolic Provider Name and Address Organization Details Last Updated DateTime 4 167.64 cm 27.8 kg/m2 18449.3 2 g 68 /min 97 % 97 % 132/70 mm[Hg] Imani Ge MA [facility] 4 11:57:10 Date Recorded Body height Body mass index (BMI) Body weight Heart rate Oxygen saturation Oxygen saturation in Arterial blood by Pulse oximetry Systolic And Diastolic Provider Name and Address Organization Details Last Updated DateTime 4 167.64 cm 27.5 kg/m2 98987.8 6 g 71 /min 98 % 98 % 160/80 mm[Hg] Jcarlos Quintana [place] [facility] 11:56:36 Social History Question Answer Notes LastModified by Organizat ion Details LastModified Time Tobacco Smoking Status Former Smoker quit 2000 cigarettes NedALIREZA [place], [place] - [facility] 10/26/2023 10:38:42 Do You Have An Advance Directive? No Information not available 06/29/2023 Are You Blind Or Do You Have [...] Date Of Your Most Recent Tobacco Screening? 10/13/2024 Information not available 10/13/2024 What Is Your Relationship Status? Domestic Partner Information not available 06/29/2023 Do You Use Your Seat Belt Or Car Seat Routinely? Yes Information not available 06/29/2023 Do You Have Smoke And Carbon Monoxide Detectors In Your Home? Yes Information not available 06/29/2023 Do You Use Sunscreen Routinely? No Information not available 06/29/2023 Has Tobacco Cessation Counseling Been Provided? No Information not available 10/13/2024 On What Date Was Tobacco Cessation Counseling Provided? 10/13/2024 Information not available 10/13/2024 How Many Years Have You Smoked Tobacco? 30 [email or web address] Information not available 10/26/2023 Sex: Female Functional Status Question Answer Note LastModified by Organizat ion Details LastModified Time Do you use any illicit or recreational drugs? No Information not available 06/29/2023 Do you or have you ever used any other forms of tobacco or nicotine? No Information not available 06/29/2023 What is your level of alcohol consumption? None [email or web address] Information not available 06/28/2015 Are you currently employed? No Information not available 01/25/2024 Are you able to care for yourself independently? Yes Information not available 01/25/2024 Mental Status None recorded. Family History Relationship Description Onset Age of this Age Resolved Age Notes LastModified by Organization Details LastModified Time Mother Hypertensive disorder [email or web address] Not available 06/28 14:33:10 Sister Neoplasm of lung [email or web address] Not available 2023 21:19:32 Medical History Condition Response Coronary Artery Disease N Other N High Blood Pressure Y Atrial Fibrillation N Kidney or Bladder Problems N Thyroid Problems N GI Problems N Depression N COPD N Blood Clots N Skin Problems N Anemia N Heart Attack ([place]) N Anxiety Disorder N Diabetes Y Muscle, [...] Recorded Time zoster recombinant 0 completed Veda [place] [facility] 10/25/2023 15:46:52 Influenza, high-dose, quadrivalent, PF 0 completed [place] [facility] 10/25/2023 15:46:52 pneumococcal polysaccharide PPV23 0 completed [place] [facility] 10/25/2023 15:46:52 Tdap 9 completed [place] [facility] 10/25/2023 15:46:52 Pneumococcal conjugate PCV 13 7 completed Veda Villisc[place] null[place] [facility] 10/25/2023 15:46:52 pneumococcal, unspecified formulation 4 completed V[place] [facility] 10/25/2023 15:46:52 Influenza, high-dose, trivalent, PF 7 completed [place] [facility] 10/25/2023 15:46:52 Influenza, high-dose, trivalent, PF 8 completed Veda [place] [facility] 10/25/2023 15:46:52 Influenza, high-dose, trivalent, PF 9 completed Veda [place] [facility] 10/25/2023 15:46:52 Influenza, high-dose, trivalent, PF 7 completed Veda [place] [facility] 10/25/2023 15:46:52 Influenza, split virus, trivalent, preservative 3 completed Veda [place] null[place] [facility] 10/25/2023 15:46:52 Past Encounters Encounter ID Performer Location Encounter Start Date Encounter Closed Date Diagnosis/Indication Diagnosis SNOMED-CT Code Diagnosis ICD10 Code Diagnosis Note [id number] MD Shameka Rueda (Adult Med) [address] [place] [address] 34817-463 0 06/28/2015 13:06:05 06/28/2015 14:52:20 Diabetes mellitus 71869394 E13.65 Essential hypertension 86988921 I10 [id number] MD Shameka Reyes (Adult Med) [address] [place] [address] 04383-138 0 06/29/2023 09:50:25 06/29/2023 11:23:25 Essential hypertension 91834810 I10 Pain in right foot 31941 05747 29782 M79.671 Type 2 venkatesh betes mellitus 79694265 E11.9 Dyslipidemia 689408678 E 78.5 History of cerebrovascular accident 098738132 Z86.73 Nodular goiter 823360072 E04.9 Diabetes mellitus 189961 09 E11.9 Nodule of lung 700558821 R91.1 [id number] MD Shameka Reyes (Adult Med) [address] [place] [address] 21171-948 0 10/26/2023 10:18:13 10/26/2023 11:19:48 Type 2 diabetes mellitus 76549959 E11.9 Visual disturbance 10415 001 H53.9 Overweight 062568505 E66 .3 Dyslipidemia 953672534 E 78.5 Essential hypertension 51119808 I10 Dysfunctio n of bilateral eustachian tubes 4977623969 035740 H69.93 [id number] MD Shameka Reyes (Adult Med) [address] [place] [address] 96956-229 0 01/25/2024 10:19:16 01/25/2024 11:25:27 Overweight 307887187 E66.3 Rectal hemorrhage 076548 02 K62.5 Essential hypertension 23876804 I10 Diabetes mellitus 993032 09 E11.9 Constipation 18391696 K5 9.00 [id number] MD Shameka Reyes (Adult Med) [address] [place] [address] 78004-186 0 03/03/2024 11:13:16 03/03/2024 12:51:34 Type 2 diabetes mellitus 51192366 E11.9 Essential hypertension 67182945 I10 [id number] MD Shameka Reyes (Adult Med) [address] [place] [address] 92668-907 0 04/07/2024 10:47:52 04/07/2024 12:46:34 Dyslipidemia 228016313 E78.5 Type 2 venkatesh betes mellitus 17253000 E11.9 Essential hypertension 17853703 I10 [id number] MD Shameka Reyes (Adult Med) [address] [place] [address] 35453-554 0 06/23/2024 09:47:32 06/23/2024 10:48:20 Body mass index 25-29 - overweight 474561248 Z68.27 Overweight 317030435 E66 .3 Essential hypertension 52526932 I10 Ischemic stroke 28676337 2 I63.9 [id number] MD Shameka Reyes (Adult Med) [address] [place] [address] 08/23/2024 09:58:05 08/23/2024 10:49:05 Overweight in adulthood with body mass index of 25 or more but less than 30 220161305 Z68.27 Overweight 993698094 E66 .3 Vasovagal syncope 419502 005 R55 Dyslipidemia 885929410 E 78.5 History of cerebrovascular accident 947479923 Z86.73 Diabetes mellitus 329117 09 E11.9 [id number] Noel Ordaz MD [facility] (Adult Med) [address] [place] [address] 10/13/2024 10:18:17 10/13/2024 11:39:40 Overweight in adulthood with body mass index of 25 or more but less than 30 920774935 E66.3 Z68.27 Essential hypertension 22011783 I10 Type 2 venkatesh betes mellitus 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 E11.9 Abnormal gait 87081084 R 26.9 Dyslipidemia 635646922 E 78.5 History of cerebrovascular accident 276603521 Z86.73 Health Concerns Section Related Observation LastModified by Organization Detai ls LastModified Time None Recorded Concern Status LastModified by Organization Details LastModified Time None Recorded Advance Directives Directive N: Payers Insurance Date Sequence Insurance Name Policy Number Policy Soto Covered Member ID Soto Member ID Guarantor Name 10/26/2023 1 [facility] - OPEN ACCESS (POS) Sury Yao [id number] Pinky Yao 10/16/2024 1 [facility] (MEDICARE REPLACEMENT/A DVANTAGE - HMO) [id number] Pinky Yao [id number] Pinky Yao Notes Date Note Type Note Provider Name and Address Organization Details Recorded Time 03/03/2024 text/html no blood in stool. Short interval follow up of blood pressure and she has been asymptomatic with regards to the Noel Ordaz MD Attn: Accounting,[address] [place], [address], [facility] 03/04/2024 16:49:53 04/07/2024 text/html blood pressure is 160/80 and she is not taking her [...] was 6.3 Noel Ordaz MD Attn: Accounting, [place], [address], [facility] 04/08/2024 14:36:20 06/23/2024 text/html left basal ganglia infarct workup was negative CT angiogram did [...] lots of stress Noel Ordaz MD Attn: Accounting, [place], [address], [facility] 06/24/2024 21:06:03 08/23/2024 text/html Straining at stool very lightheaded persisted maybe 20 30 minutes presyncopal but did not pass out went to the hospital workup negative CTA nothing to intervene on MRI old strokes and some encephalomalacia stable since discharge Noel Ordaz MD Attn: Accounting, [place], [address], [facility] 08/27/2024 21:18:35 10/13/2024 text/html left basal ganglia infarct workup was negative CT angiogram did [...] in the last month lots of stress and all of this about the same she has not done her ultrasound of her thyroid yet and she is having worsening problems with gait Noel Ordaz MD Attn: Accounting, [place], [address], [facility] 10/14/2024 16:46:34 OBGyn Episode No OBEpisode recorded.
--- OUTSIDE RECORDS SUMMARY | 2024-11-24 09:10 | XMS_ITS | Continuity of Care Document ---
Author Organization [facility] Address [address] [place] [address] Phone Care Team Providers Care Webbing Tacker Name Role Phone Parra OD, Shaun Unavailable Unavailable Procedures Procedure Date Eye Exam & Treatment Eye Exam & Treatment Eye Exam & Treatment Refraction Advance Directives Directive Yes / No Effective Date File Name No Information Encounters Encounter Description Practice Location Reason(s) For Visit Diagnoses Date Provider Providers Copied on Encounter [facility], [address] [place] [address] [address], [place], [place], [id number], tel:[phone] [facility] [place] No Information 5-201 0 Parra OD Shaun. [address], [place], [place], [facility] [place], [place]. tel:[phone] [facility], [address] [place] [address] [address], [place], [place], [id number], tel:[phone] [facility] [place] No Information 2-200 9 Parra OD Shaun. [address], [place], [address], [place]. tel:[phone] [facility], [address] [place] [address] [address], [place], [place], [id number], tel:[phone] [facility] [place] No Information Dec- 3-200 8 Parra OD Shaun. [address], [place], [place], [facility] [place], [place]. tel:[phone] Family History Family Member Type Diagnosis Age At Onset No Information Payers Payer name Insurance type Covered democrat ID Authoriza tikrista(s) [place] [id number] Social History Type Description Quantity Date Captured [...]
--- OUTSIDE RECORDS SUMMARY | 2024-11-24 09:10 | XMS_ITS | Data Portability ---
Author Organization [place] [facility] [employer], Main Office Address [address] [place] [address] Care Team Providers Care Shorthand Teacher Name Role Phone NOEL ORDAZ Primary Care Provider NOEL ORDAZ Referring Provider Assessment Encounter Date Assessment Date Assessment LastModified by Organization Details LastModified Time 01/19/2024 01/19/2024 73 yo patient presents today [...] She is in agreement with this plan. [email or web address] Not available 01/19/2024 11:15:09 02/02/2024 02/02/2024 73-year-old [...] questions or concerns. Not available 04/10/2024 11:10:05 09/12/2024 09/12/2024 This note is dictated and transcribed by [employer]. Collar Stay Fuser Tender variances may occur. Despite proofreading, typographical errors may occur. Occasional wrong-word or 'yssgt-a-ceer' substitutions may have occurred due to the inherent limitations of voice recording. Read the chart carefully and recognize, using context, where substitutions have occurred. [email or web address] Not available 09/12/2024 11:00:35 Plan of Treatment Reminders Order Date Submit Date Provider Last Modified By Organization Details Last Modified Time Details Appointments Establish ed Patient 15 2024 10:45A M Neno Hernandez DPM Not available Not available Not available Lab None recorded. Referral physical therapist referral - Please contact pt to schedule on or after 05/03/2024. Thanks 2023 [facility] [place], [address] [place], [address], 04/11/2024 10:10:34 physical therapist referral - Please contact patient to schedule 2023 024 [facility], [address] [place], [address], 02/15/2024 14:55:44 occupatio nal therapist referral - Please contact patient to schedule [address] Physical, Occupational & [facility] Medicine [facility] Re[facility], [address] [place], [address], 02/02/2024 21:15:03 Procedures None recorded. Surgeries None recorded. Imaging XR, shoulder, 2 or more view 2023 024 [email or web address] [place], [address], [place], [address], 04/10/2024 20:15:51 XR, wrist, 3 or more view 2023 024 [facility] [place], [address], [place], [address], 04/10/2024 20:15:51 XR, shoulder, 2 or more view 2023 024 [facility] [place], [address], [place], [address], 03/01/2024 17:07:46 XR, wrist 2023 024 [facility] [place], [address], [place], [address], 03/01/2024 17:07:46 XR, shoulder 2023 024 [email or web address] [facility] [place], [address], [place], [address], 02/03/2024 16:23:40 XR, wrist 2023 024 [email or web address] [facility] [place], [address], [place], [address], 02/03/2024 16:24:00 XR, shoulder, 2 or more view 2023 024 [email or web address] [facility] [place], [address], [place], [address], 01/19/2024 16:27:44 XR, wrist, 3 or more view 2023 024 [email or web address] [facility] [place], [address], [place], [address], 01/19/2024 16:27:44 Medication Orders None recorded. Patient TargetsNo targets [...] Abnormal Flag Note LastModifiedBy Organization Detail LastModifiedTime 01/04/20 24 01/02/2024 shaei arely/judi davis tic resul t No observ ation record ed. [email or web address] Not Available 01/03 10:07:57 01/05/20 24 XR, knee, 3 view No observ ation record ed. [email or web address] [facility] [place] [address] [facility] [address], [place], [address], 01/05/2024 10:57:36 01/19/20 24 XR, shoul rosemary, 2 or more view No observ ation record ed. [email or web address] [facility] [place] [address] [facility] [address], [place], [address], 01/19/2024 11:15:11 01/19/20 24 XR, wrist , 3 or more view No observ ation record ed. [email or web address] [facility] [place] [address] [facility] [address], [place], [address], 01/19/2024 11:15:16 02/02/20 24 XR, shoul rosemary No observ ation record ed. [email or web address] [facility] [place] [address], [place], [address], 02/02/2024 10:34:49 02/02/20 24 XR, wrist No observ ation record ed. [email or web address] [facility] [place] [address] [facility] [address], [place], [address], 02/02/2024 10:34:57 02/28/20 24 XR, shoul rosemary, 2 or more view No observ ation record ed. [email or web address] [facility] [address], [place], [address], 02/28/2024 11:04:53 02/28/20 24 XR, wrist No observ ation record ed. [facility] [address], [address], 02/28/2024 11:05:11 04/10/20 24 XR, shoul rosemary, 2 or more view No observ ation record ed. [email or web address] [facility] [address], [place], [address], 04/10/2024 10:50:51 04/10/20 24 XR, wrist , 3 or more view No observ ation record ed. [email or web address] [facility] [address], [address], 04/10/2024 10:56:46 Result Notes None recorded. Problems Name Problem SNOMED Code Status Onset Date Resolution Date Notes Provider Name and Address Organization Details Recorded Time Acquired trigger finger 2401687 Active Not Available [facility] 3 07:43:33 Radiother apy follow-up 678897365 Active Not Available [facility] 3 07:43:33 Anxiety disorder 403153696 Active Not Available [facility] 3 07:43:33 Fractured nasal bones 127751317 Active Not Available [facility] 3 07:43:33 Pure hyperchol esterolem ia 054832270 Active Not Available [facility] 3 07:43:33 Pain in right arm 905262981 Active Not Available [facility] 3 07:43:33 Knee pain Active Not Available [facility] 3 07:43:33 Osteoarth ritis 940016115 Active Not Available [facility] 3 07:43:33 Essential hypertens ion 19404122 Active Not Available [facility] 3 07:43:33 Diabetes mellitus 18331370 Active Not Available [facility] 3 07:43:33 Low back pain 926168398 Active 2016 Not Available [facility] 3 07:43:33 Dysuria 36244308 Active 2016 Not Available [facility] 3 07:43:33 Pain of right wrist 87646231094 9100 Active 2017 Not Available [facility] 3 07:43:33 Rhinitis 15387323 Active 2017 Not Available [facility] 3 07:43:33 Vitamin D deficienc y 00212142 Active 2018 Not Available [facility] 3 07:43:33 Osteoarth ritis of right knee joint 64242761123 9100 Active 2018 Not Available [facility] 3 07:43:33 Achilles tendiniti s 89936178 Active 2019 Not Available [facility] 3 07:43:32 Hyperchol esterolem ia 36875620 Active 2019 Not Available [facility] 3 07:43:32 Osteophyt e of bone 76010285610 9100 Active 2019 Not Available [facility] 3 07:43:33 Arthritis 9000596 Active 2019 Not Available [facility] 3 07:43:33 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 Not Available [facility] 3 07:43:33 Closed intertroc hanteric fracture 17240102 Active 2020 Not Available [facility] 3 07:43:33 Trochante heladio bursitis of right hip 69740113783 9100 Active 2021 Not Available [facility] 3 07:43:33 Urinary tract infectiou s disease 52443402 Active 2021 Not Available [facility] 3 06:42:22 Long-term drug therapy Active 2021 Not Available [facility] 3 07:43:33 Adult health examinati on Active 2021 Not Available [facility] 3 07:43:33 Anemia 205576732 Active 2021 Not Available [facility] 3 07:43:33 Screening for disorder Active 2021 Not Available [facility] 3 07:43:33 Dysphagia 97908288 Active 2021 Not Available [facility] 3 07:43:33 Weight loss 45916286 Active 2021 Not Available [facility] 3 07:43:33 Abdominal pain 98021965 Active 2021 Not Available [facility] 3 07:43:33 Osteoarth ritis of knee 469844009 Active 2021 Not Available [facility] 3 07:43:33 Nodule of lung 229643118 Active 2021 3.5 mm right lower lobe August 2021 Not Available [facility] 3 07:43:33 Nodule of adrenal cortex 536816003 Active 2021 18 mm right adrenal lipoma Not Available [facility] 3 07:43:33 Disorder of adrenal gland 48406335 Active 2021 Not Available [facility] 3 07:43:33 Acute urinary tract infection 095549996 Active 2021 Not Available [facility] 3 07:43:33 Contusion of right hip region 81838178040 963143 Active 09/27/ 2022 Not Available [facility] 3 07:43:32 Pain of right hip joint 51965468953 9102 Active 2021 Not Available [facility] 3 07:43:33 Conjuncti vitis 5197671 Active 2021 Not Available [facility] 3 07:43:33 Acute conjuncti vitis 33658440 Active 2021 Not Available [facility] 3 07:43:33 Type 2 diabetes mellitus without complicat ion 679303527 Active 2021 Not Available [facility] 3 07:43:33 Anxiety 81035415 Active 2022 Not Available [facility] 3 07:43:33 Cough 94675859 Active 2022 Not Available [facility] 3 07:43:33 CT of chest abnormal 28024731772 535639 Active 2022 Not Available [facility] 3 07:43:33 Thyroid nodule 553292014 Active 2022 referred to Endocrino logy Not Available [facility] 3 07:43:33 Bilateral chronic serous otitis 964339537 Active 2023 Shankar Hoover MD [address], [address] , [facility] 4 11:06:18 Pain of left shoulder joint 04042212276 350141 Active 2023 MARYURI Miguel, [facility] 4 10:19:12 Pain of left wrist 26465512701 9102 Active 2023 MARYURI Miguel, [facility] 4 10:19:33 Pain of left knee joint 83799946500 4107 Active 2023 MARYURI Miguel, [facility] 4 10:19:54 Dystrophi a unguium 29469941 Active 2024 Neno Hernandez DPM [address], [place], [address] , [facility] 11:00:42 Notes:Some problems listed i n Document: #[id number] could not be added to this patient's chart. Please review this document and add these problems to the patient's chart manually as needed. Problem Notes None recorded. Procedures Surgical History Date Name Laterality Status Provider Name and Address Organization Details Recorded Time 08/15/19 Medicare Wellness CPT Code, subsequent completed Vead Franco RN [place] [facility] 08/14/2022 14:14:08 07/17/19 23 Ortho - Cortisone Injection completed Kendrick Quintana MD [address] [facility], [address], [place], [address], [facility] 07/16/2022 11:08:33 07/17/19 22 EGD completed Not Available [facility] 04:42:13 07/17/19 22 Colonoscopy completed Not Available [facility] 07/02/19 04:42:13 05/09/19 21 Most Recent Bone Density completed Not Available [facility] 07/01/2022 04:42:11 12/16/19 19 Date of Last Colonoscopy completed Not Available [facility] 07/01/2022 04:42:11 12/16/19 19 Colonoscopy completed Not Available [facility] 07/02/19 04:42:13 10/01/19 17 release of trigger finger completed Not Available [facility] 07/01/2022 04:42:13 10/21/19 16 release of trigger finger completed Not Available [facility] 07/01/2022 04:42:13 06/12/19 11 Colonoscopy completed Not Available [facility] 07/02/19 04:42:13 completed Not Available [facility] 0 07/01/2022 04:42:13 Unlisted px femur/knee completed Not Available [facility] 07/01/2022 04:42:13 Back Surgery completed Not Available [facility] 07/01/2022 04:42:13 Gallbladder Surgery completed Not Available [facility] 07/01/2022 04:42:13 Tonsillectomy completed Not Available [facility] 07/01/2022 04:42:13 Imaging Results None recorded. Procedure Notes None [...] Not Available Not Available No t Available clopidogr el 75 mg tablet TAKE 1 TABLET BY MOUTH ONCE DAILY active Not Available Not Available No t Available amlodipin e 5 mg tablet TAKE 1 TABLET BY MOUTH ONCE DAILY active Not Available Not Available No t Available peg-elect rolyte solution 420 gram oral solution 08/08 completed Not Available Not Available Not Available aspirin 81 mg tablet,de layed release TAKE 1 TABLET BY MOUTH ONCE DAILY active Not Available Not Available No t Available tramadol 50 mg tablet TAKE 1 [...] injectio n route. 10/14 completed [facility]: [id number] 08-20 Not Available Not Available Not Available hydrocodo ne 7.5 mg-acetam inophen 325 mg tablet TAKE 1 TABLET BY MOUTH EVERY 6 TO 8 HOURS NEEDED 04/03 completed Not Available Not Available Not Available cephalexi n 500 mg capsule TAKE 1 CAPSULE BY MOUTH 4 TIMES DAILY FOR 7 DOSES active Not Available Not Available No t Available metformin 1,000 mg tablet TAKE 1 [...] (50,000 unit) capsule take one capsule by [facility] for 12 weeks active Not Available Not [...] e 50 mcg/actua tion nasal spray,[employer] [place] 2 sprays every day by intranas al route at dinner. active Not Available Not Available No t Available metformin ER 500 mg tablet,ex tended release 24 hr TAKE 1 TABLET BY MOUTH ONCE DAILY WITH SUPPER active Not Available Not Available No t Available doxycycli ne hyclate 100 mg tablet TAKE 1 TABLET BY MOUTH TWICE DAILY FOR 7 DAYS 02/01 completed Not Available Not Available Not Available amoxicill in 875 mg-potass ium clavulana te 125 mg tablet TAKE 1 TABLET BY MOUTH EVERY 12 HOURS active Not Available Not Available No t Available neomycin 3.5 mg/g-poly myxin B 10,000 [...] Not Available Not Available No t Available calcium 1200 daily 04/19 completed Not Available Not Available Not Available lidocaine (PF) 10 mg/mL (1 %) injection solution In office injectio n administ ered by the provider active [facility]: [id number] 10-17 Not Available Not Available Not [...] subcutan eous route. 04/19 completed lot # [id number] - exp. 03/22 - given in left [...] Available Not Available Not Available Fluzone High-Dose 8708-4142 (PF) 180 mcg/0.5 mL intramusc ular syringe [...] Not Available Not Available Not Available OneTouch Ultra Blue Test Strip USE ONE STRIP TO CHECK GLUCOSE ONCE DAILY 01/04 completed Not Available Not Available Not Available Fluzone High-Dose 2018- (PF) 180 mcg/0.5 mL intramusc ular syringe PHARMACI ST ADMINIST ERED IMMUNIZA TION ADMINIST ERED AT TIME OF DISPENSI NG 08/03 completed Not Available Not Available Not Available Fluzone High-Dose Quad 2019- (PF) 240 mcg/0.7 mL IM syringe PHARMACI ST ADMINIST ERED IMMUNIZA TION ADMINIST ERED AT TIME OF DISPENSI NG 08/19 completed Not Available Not Available Not Available Ozempic 1 mg/dose (4 mg/3 mL) subcutane ous pen injector 06/22 completed Not Available Not Available Not Available Vitals Date Recorded Body height Oxygen saturation Oxygen saturation in Arterial blood by Pulse oximetry Heart rate Body temperature Systolic And Diastolic Provider Name and Address Organization Details Last Updated DateTime 165.1 cm 98 % 98 % 75 /min 97.6 [degF] 120/77 mm[Hg] Horace Markham [facility] 10:22:50 Date Recorded Body mass index (BMI) Body weight Provider Name and Address Organization Details Last Updated DateTime 09/12/2024 27.5 kg/m2 35646.74 g Ann-Marie Ziegler [facility] 09/12/2024 10:27:58 Date Recorded Body height Body mass index (BMI) Body weight Pain severity - 0-10 verbal numeric rating [Score] - Reported Provider Name and Address Organization Details Last Updated DateTime 01/19/2024 165.1 cm 28.3 kg/m2 92104.7 g 6 Suzanne Ferguson [facility] [email or web address] [facility] 01/19/2024 09:57:56 Date Recorded Body height Provider Name an d Address Organization Details Last Updated DateTime 02/02/2024 165.1 cm Neda Braxton [facility] 02/02/2024 10:33:54 Date Recorded Body height Body mass index (BMI) Body weight Pain severity - 0-10 verbal numeric rating [Score] - Reported Provider Name and Address Organization Details Last Updated DateTime 02/28/2024 165.1 cm 28.3 kg/m2 54561.7 g 7 Suzanne Ferguson [facility] 02/28/2024 11:04:17 Date Recorded Body height Body mass index (BMI) Body weight Pain severity - 0-10 verbal numeric rating [Score] - Reported Provider Name and Address Organization Details Last Updated DateTime 04/10/2024 165.1 cm 28.3 kg/m2 60917.7 g 7 Suzanne Ferguson [facility] 04/10/2024 10:49:54 Social History Question Answer Notes LastModified by Organizat ion Details LastModified Time Tobacco Smoking Status Former Smoker quit in 1999 Not Available [facility] 07/01/2022 04:41:55 Do You Have An Advance Directive? Yes MIGRATION.57994 80611 Information not available 07/01/2022 Are You Blind Or Do You Have Difficulty Seeing? No MIGRATION.72112 82979 Information not available 07/01/2022 What Is Your Level Of Caffeine Consumption? Occasional MIGRATION.52956 39105 Information not available 07/01/2022 How Much Tobacco Do You Chew? None MIGRATION.11574 13369 Information not available 07/01/2022 In The 14 Days Before Symptom Onset, Have You Had Close Contact With A Laboratory-confi rmed COVID-19 While That Case Was Ill? No MIGRATION.99458 01944 Information not available 07/01/2022 In The 14 Days Before Symptom Onset, Have You Had Close Contact With A Person Who Is Under Investigation For COVID-19 While That Person Was Ill? No MIGRATION.58518 54557 Information not available 07/01/2022 Are You Deaf Or Do You Have Serious Difficulty Hearing? No MIGRATION.38188 66074 Information not available 07/01/2022 What Type Of Diet Are You Following? REGULAR MIGRATION.65645 13346 Information not available 07/01/2022 Which Illicit Or Recreational Drugs Have You Used? None MIGRATION.16590 22289 Information not available 07/01/2022 What Is The Highest Grade Or Level Of School You Have Completed Or The Highest Degree You Have Received? [id number] MIGRATION.74419 17425 Information not available 07/01/2022 Have There Been Any Changes To Your Family Or Social Situation? No MIGRATION.95124 00563 Information not available 07/01/2022 What Is The Fluoride Status Of Your Home? Unknown MIGRATION.14397 97760 Information not available 07/01/2022 When Did You Quit Smoking? 16+yearssincelastc igarette MIGRATION.32199 16579 Information not available 07/01/2022 Are There Any Guns Present In Your Home? No MIGRATION.20621 59633 Information not available 07/01/2022 Do You Use Insect Repellent Routinely? No MIGRATION.79089 35644 Information not available 07/01/2022 Where Do You Live? [facility] MIGRATION.44030 32289 Information not available 07/01/2022 Presence Of Domestic [...] Do You Have A Medical Power Of Security Shift Manager? No MIGRATION.59467 73403 Information not available 07/01/2022 What Was The Date Of Your Most Recent Tobacco Screening? 09/12/2024 Information not available 09/12/2024 Do You Have Any Pets? Yes MIGRATION.62942 92618 Information not available 07/01/2022 What Is Your Relationship Status? Domestic Partner MIGRATION.94906 93277 Information not available 07/01/2022 Do You Use Your Seat Belt Or Car Seat Routinely? Yes MIGRATION.22222 21349 Information not available 07/01/2022 Do You Have Smoke And Carbon Monoxide Detectors In Your Home? Yes MIGRATION.91179 60109 Information not available 07/01/2022 Are You Passively Exposed To Smoke? No MIGRATION.04113 01728 Information not available 07/01/2022 Are There Any Smokers In Your House? No MIGRATION.92750 84985 Information not available 07/01/2022 How Much Tobacco Do You Smoke? No Was 2ppd MIGRATION.85379 83139 Information not available 07/01/2022 What Types Of Sporting Activities Do You Participate In? None MIGRATION.15677 90581 Information not available 07/01/2022 Do You Use Sunscreen Routinely? No Information not available 08/14/2022 Has Tobacco Cessation Counseling Been Provided? No MIGRATION.83241 04583 Information not available 07/01/2022 Have You Recently Traveled Abroad? No MIGRATION.00007 91551 Information not available 07/01/2022 Do You Have Difficulty Walking Or Climbing Stairs? No MIGRATION.56994 51301 Information not available 07/01/2022 Do You Have Any Dietary Restrictions? No MIGRATION.00258 98792 Information not available 07/01/2022 Sex: Female Functional Status Question Answer Note LastModified by Organizat ion Details LastModified Time Do you use any illicit or recreational drugs? No MIGRATION.94445 52467 Information not available 07/01/2022 Do you or have you ever used any other forms of tobacco or nicotine? No MIGRATION.43056 59832 Information not available 07/01/2022 What is your level of alcohol consumption? None MIGRATION.11293 45293 Information not available 07/01/2022 Do you or have you ever used smokeless tobacco? Never used smokeless tobacco MIGRATION.54716 35015 Information not available 07/01/2022 Do you have transportation difficulties? No MIGRATION.96533 21436 Information not available 07/01/2022 Are you able to walk? YESWOREST MIGRATION.67104 15902 Information not available 07/01/2022 Do you have difficulty doing errands alone? No MIGRATION.63887 23344 Information not available 07/01/2022 Are you able to care for yourself independently? Yes MIGRATION.29389 31581 Information not available 07/01/2022 What is your occupation? retired MIGRATION.06489 09367 Information not available 07/01/2022 Do you have difficulty dressing, bathing, grooming, or toileting? No MIGRATION.83125 90561 Information not available 07/01/2022 Do you or have you ever used e-cigarettes or vape? Never used electronic cigarettes MIGRATION.07729 88495 Information not available 07/01/2022 What is your exercise level? None stays active Information not available 08/14/2022 Mental Status Question Answer Note LastModified by Organizat ion Details LastModified Time Do you feel stressed (tense, restless, nervous, or anxious, or unable to sleep at night)? [id number] MIGRATION.00104083 26 Information not available 07/01/2022 Do you have difficulty concentrating, remembering or making decisions? No MIGRATION.32652137 26 Information not available 07/01/2022 Family History Relationship Description Onset Age of this Age Resolved Age Notes LastModified by Organization Details LastModified Time Mother Colostomy MIGRATION.992 [id number] Not available 07/01/2022 04:42:20 Sister Family history of malignant neoplasm MIGRATION.718 [id number] Not available 07/01/2022 04:42:20 Sister COVID-19 deceas ed MIGRATION.392 [id number] Not available 07/01/2022 04:42:20 Son Family history of malignant neoplasm MIGRATION.810 [id number] Not available 07/01/2022 04:42:20 Notes:NO ENT Medical History Condition Response NERVE DISEASE N BLINDNESS N RHEUMATIC FEVER N KIDNEY STONES N BLADDER PROBLEMS N MRSA N OTHER # 1 N POLIO N LUNG DISEASE/DISORDER N RADIATION / CHEMOTHERAPY N COPD N Other # 2 N BLOOD DISEASES N SURGERY N EAR OR HEARING PROBLEMS N MUMPS N DEPRESSION (INCLUDING POST ) N BOWEL PROBLEMS N STROKE/TIA Y ULCERS N BENIGN PROSTATIC [...] HAVE YOU BEEN HOSPITALIZED OR SEEN IN [facility] IN THE PAST YEAR ? N ATHEROSCLEROSIS [...] virus, trivalent, preservative 3 completed Not Available [facility] 04/05/2023 07:43:34 zoster, unspecified formulation 0 completed Not Available [facility] 04/05/2023 07:43:33 pneumococcal polysaccharide PPV23 0 completed Not Available [facility] 04/05/2023 07:43:34 Influenza, high-dose, trivalent, PF 0 completed Not Available [facility] 04/05/2023 07:43:34 Tdap 9 completed Not Available [facility] 04/05/2023 07:43:34 Influenza, high-dose, trivalent, PF 9 completed Not Available [facility] 04/05/2023 07:43:34 Pneumococcal conjugate PCV 13 7 completed Not Available [facility] 04/05/2023 07:43:34 Influenza, high-dose, trivalent, PF 7 completed Not Available [facility] 04/05/2023 07:43:34 Influenza, high-dose, quadrivalent, PF 9 completed Not Available [facility] 04/05/2023 07:43:34 pneumococcal, unspecified formulation 4 completed Not Available [facility] 04/05/2023 07:43:34 Influenza, split virus, trivalent, preservative 3 completed Not Available [facility] [facility] 04/05/2023 07:43:34 Past Encounters Encounter ID Performer Location Encounter Start Date Encounter Closed Date Diagnosis/Indication Diagnosis SNOMED-CT Code Diagnosis ICD10 Code Diagnosis Note [id number] Noel Ordaz MD [facility] Internal Med [facility] [address] [address] 08/19/2020 00:00:00 08/24/2020 21:06:00 [id number] [facility] [address] [address] 09/06/2020 00:00:00 09/22/2020 17:54:42 [id number] Noel Ordaz MD [facility] Internal Med [facility] [address] [address] 11/27/2020 00:00:00 12/01/2020 10:20:57 [id number] Kendrick Quintana MD [facility] [place] [address] [place] [address] 12/19/2020 00:00:00 12/19/2020 15:03:41 [id number] MD SHAMIR [facility] [place] [address] [place] [address] 01/16/2021 00:00:00 01/16/2021 10:15:45 [id number] Noel Ordaz MD [facility] [place] [address] [facility].[address] [address] 03/17/2021 00:00:00 03/29/2021 17:37:35 [id number] Kendrick Quintana MD [facility] [address] [address] 04/29/2021 00:00:00 04/29/2021 09:46:31 [id number] Kendrick Quintana MD [facility] [address] [address] 05/27/2021 00:00:00 05/27/2021 09:27:52 [id number] Noel Ordaz MD [facility] Internal Med [facility] [address] [address] 1 06/09/2021 00:00:00 07/06/2021 20:54:16 [id number] Noel Ordaz MD [facility] [place] [address] [facility] [address] 07/04/2021 00:00:00 07/27/2021 17:49:16 [id number] Noel Ordaz MD [facility] Internal Med [facility] [address] [facility] [address] [address] 08/08/2021 00:00:00 08/23/2021 19:21:55 [id number] Kendrick Quintana MD [facility] [place] [address] [place] [address] 08/19/2021 00:00:00 08/19/2021 14:36:35 [id number] Noel Ordaz MD [facility] Internal Med [place] [address] [address] 09/05/2021 00:00:00 09/05/2021 22:19:44 [id number] Kendrick Quintana MD [facility] [place] [address] [place] [address] 09/30/2021 00:00:00 09/30/2021 14:04:01 [id number] Kendrick Quintana MD [facility] [place] [address] [place] [address] 10/28/2021 00:00:00 10/28/2021 13:46:53 [id number] Noel Ordaz MD [facility] [place] [address] [address] 12/02/2021 00:00:00 01/10/2022 11:43:58 [id number] Kendrick Quintana MD [facility] [address] [address] 12/30/2021 00:00:00 12/30/2021 10:38:57 [id number] Kendrick Quintana MD [facility] [address] [address] 01/27/2022 00:00:00 01/27/2022 09:39:23 [id number] Kendrick Quintana MD [facility] [address] [address] 02/10/2022 00:00:00 02/10/2022 09:25:31 [id number] Kendrick Quintana MD [facility] [address] [address] 03/10/2022 00:00:00 03/10/2022 10:24:18 [id number] Noel Ordaz MD [facility] Internal Med [place] [address] [address] 04/03/2022 00:00:00 04/03/2022 10:29:50 [id number] Kendrick Quintana MD [facility] Orth[facility] [place] [address] [place] [address] 07/16/2022 10:45:59 07/16/2022 12:01:06 Contusion of right hip region [id number] S70.01XD Pain of ri ght hip joint 2482073241 41272 M25.551 Trochanter ic bursitis of right hip 5141512028 58220 M70.61 [id number] Noel Ordaz MD [facility] Internal Med [facility] [address] [facility] 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 [address] 09/25/2022 11:15:07 09/25/2022 12:27:49 Diabetes mellitus 22045564 E11.9 Essential hypertension 17292181 I10 Nodule of lung 107940989 R91.1 Hypercholesterolemia 136 65241 E78.00 Anxiety 44822247 F41.9 [id number] Noel Ordaz MD [facility] Internal Med [facility] [address] 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 [place] [address] 01/05/2024 09:57:28 01/05/2024 11:17:17 Pain of left shoulder joint 1231679670 7974563 M25.512 Pain of left wrist 64921 23889 09603 M25.532 Pain of le ft knee joint 6888999882 67206 M25.116 [id number] Christiano Loera MD [facility] [place] [address] [place] [address] 01/19/2024 09:52:28 01/19/2024 10:23:53 Pain of left shoulder joint 2993016953 9582374 M25.512 Pain of left wrist 02734 31490 57217 M25.532 Pain of le ft knee joint 2423882863 02600 M25.631 [id number] Christiano Loera MD [facility] [place] [address] [place] [address] 02/02/2024 10:29:59 02/02/2024 11:12:10 Pain of left shoulder joint 6177265867 7167312 M25.512 Closed intertrochanteric fracture 14095316 S72.141D Pain of left wrist 77581 36376 75254 M25.846 [id number] Christiano Loera MD [facility] [address] [place] [address] 02/28/2024 11:00:37 02/28/2024 11:42:36 Pain of left shoulder joint 8365916402 1818622 M25.512 Pain of left wrist 67603 46528 88306 M25.198 [id number] Christiano Loera MD [facility] [address] [place] [address] 04/10/2024 10:45:00 04/10/2024 12:36:06 Pain of left shoulder joint 0528142790 0171478 M25.512 Pain of left wrist 84710 09228 37682 M25.878 [id number] Neno Hernandze DPM [facility] Pod[facility] [place] [address] [facility] [address] [place] [address] 09/12/2024 10:07:31 09/18/2024 13:27:56 Diabetes mellitus 71017431 E11.9 Patient educated on neuropathy , diabetes, diabetic diet, and daily foot exams. Patient is to check feet daily for new wounds, blisters, redness to prevent infection and ulceration s to the feet. Patient will return to clinic in 3 months for diabetic foot workup. Dystrophia unguium 12662 009 L60.3 Nails 1 through 10 were debrided with sharp mechanical debridemen t without incident. Nails were debrided and greater than 50% length and thickness where needed. Health Concerns Section Related Observation LastModified by Organization Detai ls LastModified Time None Recorded Concern Status LastModified by Organization Details LastModified Time None Recorded Advance Directives Directive Y: Payers Insurance Date Sequence Insurance Name Policy Number Policy Soto Covered Member ID Soto Member ID Guarantor Name 09/18/2024 1 [facility] (MEDICARE REPLACEMENT/A DVANTAGE - HMO) [id number] Pinky Yao [id number] Pinky Yao Notes Date Note Type Note Provider Name and Address Organization Details Recorded Time 09/12/2024 text/html Patient is a 74-year-old female diabetic she presents for diabetic foot care. Patient denies any open wounds or foot pain. Patient states she does have numbness and tingling of the feet. Patient states that she has a history of stroke which affected her right side. Patient states she has balance problems secondary to this. Patient presents without assistance devices but states she does have them at home. Patient states she does not utilize them. Patient denies any other complaints Neno Hernandez DPM [address] [facility], [facility] [address], [place], [address], [facility] 09/12/2024 13:58:15 OBGyn Episode No OBEpisode recorded.
--- OUTSIDE RECORDS SUMMARY | 2024-11-24 09:10 | XMS_ITS | Referral Summary ---
Author Organization [facility] Address [address] [place] [address] Care Team Providers Care Sales Agent Trading Stamps Name Role Phone Johnie Ordaz MD Primary Care Provider + [phone] Allergies No known active allergies Medications blood [...] 03/09/2023 Assessment & Plan (03/09/2023 12:52 PM PARKING LOT LABORER): Differential diagnosis would include benign nodule (macrofollicular [...] review. In addition she has an ongoing monitor tech to screen for atrial fibrillation [...] Tobacco: Never Tobacco Cessation:Counseling Given: Not Answered [facility] Utilities Answer Date Recorded In the past 12 months has [employer], gas, oil, or water [facility] threatened to shut off services in your [...] often do you attend chur ch or sikhism services? Never 05/22/2024 Do you belong to any clubs o r organizations such as denominational groups, unions, fraternal or athletic groups, or [...] any time in the past 12 m [facility], were you homeless or living in a fpc (including now)? No 05/22/2024 Personal Safety Answer Date Recorded Have you ever been in or are you currently in a harmful physical or emotional relationship or is someone making you feel afraid or unsafe? Denies 05/21/2024 Comments No Sex and Gender Information Value Date Recorded Sex Assigned at Not on file Legal Sex Female 8:13 PM PARKING LOT LABORER Gender Identity Not on file Sexual Orientation Not on file Last Filed Vital Signs Vital Sign Reading Time Taken Comments Blood Pressure 120/60 07/10/2024 9:14 AM CDT Pulse 91 07/10/2024 9:14 AM CDT Temperature 36.3 C (97.3 F) 05/25/2024 11:34 AM PARKING LOT LABORER Respiratory Rate 19 07/10/2024 9:14 AM CDT [...] Diagnosis Comments EGFR Routine 05/29/2024 6:03 AM PARKING LOT LABORER HEMOGLOBIN A1C STAT 05/21/2024 3:03 PM PARKING LOT LABORER LIPID PANEL STAT 05/21/2024 3:03 PM PARKING LOT LABORER from Last 3 Months or Most Recently Relevant to Health Maintenance Results * eGFR (05/29/2024 6:03 AM PARKING LOT LABORER) eGFR 62 >=60 mL/min/1. 73 m2 JARED [...] reviewed 2021. Testing performed by: [facility], [address] [place] [address]., [address] Blood 05/29/2024 6:03 AM PARKING LOT LABORER 05/29/2024 8:14 AM PARKING LOT LABORER us Notinfile Unknown LAB BLOOD ORDERABLES Final Res ult JARED PÉREZ [address] [facility] [place] [address] * (ABNORMAL) Hemoglobin A1c (05/21/2024 3:03 PM PARKING LOT LABORER) Hgb A1C 6.7(H) 4.0 - 5.6 % Comment:Testing performed by : [address] [address] Estimated Average Glucose 146 mg/dL JARED PÉREZ Comment: The ADA recommends reporting an estimated Average Glucose (eAG) with all Hemoglobin A1c results using the equation derived from a study of 507 normal and diabetic adults. Minority populations were underrepresented and children were not included. (Diabetes Care 31:3831-8750, 2008). The eAG is not equivalent to a fasting glucose. Testing performed by: [address] [address] Blood 05/21/2024 3:03 PM PARKING LOT LABORER 05/21/2024 3:05 PM PARKING LOT LABORER us Jenise Joyce NP LAB BLOOD ORDERABLES Final Re sult JARED PÉREZ [address] [facility] [place] [address] * Lipid panel (05/21/2024 3:03 PM PARKING LOT LABORER) Cholesterol 167 30 - 199 mg/dL Comment: [...] revised on 2017. Testing performed by: [address] [address] Triglycerides 100 <=149 mg/dL JARED PÉREZ Comment: [...] revised on 2017. Testing performed by: [address] [address] HDL 44 >=40 mg/dL JARED Comment: Interpretive [...] revised on 2017. Testing performed by: [address] [address] LDL, calculated 105 <=129 mg/dL JARED Comment: [...] last revised on 2023. Testing performed by: [address] [address] Non-HDL Cholesterol 123 mg/dL JARED Comment: Interpretive [...] on 2017. Testing performed by: [facility], [address] [place] [address]., [address] Chol/HDL ratio 4 JARED Comment:Testing performed by : [facility], [address] [place] [address]., [address] Blood 05/21/2024 3:0 3 PM PARKING LOT LABORER 05/21/2024 3:05 PM PARKING LOT LABORER Jenise Joyce NP LAB BLOOD ORDERABLES Final Re sult [facility] [address] [facility] [place] [address] from Last 3 Months or Most Recently Relevant to Health Maintenance Insurance [employer] SENIOR SUPPLEMENT MEDICARE MEDICARE ADVANTAGE MEDICARE ADVANTAGE Advance Directives For more information, please contact: [phone] * Full Code (Latest Code Status on File) Date Activated Date Inactivated Comments 05/21/2024 3:27 PM 05/25/2024 7:46 PM Care Teams Sales Agent Trading Stamps Relationship Specialty Start Date End Date Johnie Ordaz MD PCP - General Internal Medicine 08/23/20
--- NOTE | 2024-12-20 13:41 | WPDPFTINT ---
PFT Procedure Performed PFT Procedure Performed Spirometry with Pre/Post Bronchodilator Plethysmography (Lung Vol) Diffusing Cap (DLCO) Flow Vol Loop PFT Interpretation This is a pulmonary function test with pre and post-bronchodilator spirometry, plethysmography and diffusing capacity. The test was performed and results interpreted in accordance with the 2019 and 2005 ATS/ERS Task Force guidelines respectively using the Global Lung Function Initiative-2012 reference equations. Patient demonstrated good effort and cooperation. Reproducibility criteria were met. The quality of the pre bronchodilator spirometry maneuver was Grade A and post bronchodilator spirometry maneuver was Grade A. Findings: Spirometry: The contour the expiratory flow tracing in the pre bronchodilator maneuvers demonstrates a mid expiratory plateau or knee pattern in 1 of 3 efforts and a double hump in 2 of 3 maneuvers. The contour of the expiratory flow tracing in the post bronchodilator maneuvers demonstrates a mid expiratory plateau or knee pattern in 2 of 3 maneuvers and a notched pattern in 1 of 3 maneuvers. The contour the inspiratory flow tracing is normal. The pre bronchodilator FVC is 2.26 L, 80% predicted. The pre bronchodilator FEV1 is 1.71 L, 79% predicted. The pre bronchodilator FEV1: FVC ratio 76%. The post bronchodilator FVC is 1.95 L, representing a 14% decrease. The post bronchodilator FEV1 is 1.53 L, representing a 10% decrease. The post bronchodilator FEV1: FVC ratio is 78%. Plethysmography: The total lung capacity is 3.41 L, 66% predicted. The functional residual capacity is 2.03 L, 68% predicted. The residual volume is 1.15 L, 50% predicted. Diffusing capacity: The diffusing capacity unadjusted for hemoglobin and carboxyhemoglobin is 12.9, 63% predicted. The diffusing capacity adjusted for alveolar volume is 4.49, 107% predicted. Impression: The contour the expiratory flow tracing demonstrates a knee pattern, double hump pattern and a notched pattern. The knee pattern of the expiratory flow tracing can be a normal variant or pathologic and has been attributed to a choke point section of the bronchial tree. The normal variant is more common in younger female patients, decreases with age and is more pronounced in the post bronchodilator efforts. The pattern has also been described with kyphosis, kyphoscoliosis, central obstructing mass, and post lung transplantation. The double hump pattern in the expiratory flow tracing has been described with a variable obstruction at the thoracic inlet as the narrowing moves from an intrathoracic to a relative extrathoracic location towards the end of expiration. The notched pattern has been described with coughing or tracheobronchomalacia. There is a mild restrictive ventilatory abnormality with a normal FEV1. The spirometry is normal without evidence of an obstructive abnormality. There is no significant improvement after inhaling a single dose of albuterol. The diffusing capacity unadjusted for hemoglobin and carboxyhemoglobin is mildly decreased and normalizes when adjusted for alveolar volume. There are no prior studies for comparison
--- NOTE | 2024-12-20 13:56 | WPDSIXMINUTE ---
Six Minute Walk Procedure Procedure Performed Pulmonary Stress Test (6 min walk) Six Minute Walk Six Minute Walk: This is a 6 minute walk test. The test was performed and interpreted in accordance with the 2014 ERS/ATS task force guidelines. Of note, the patient used personal walker Findings: The patient's resting room air oxygen saturation measured by pulse oximetry was 97%, the heart rate was 72 bpm, and the modified Candis dyspnea score was 0. Patient ambulated for 152 meters and oxygen saturation remained 97 to 98%. At the end of the study the heart rate was 86 bpm and the modified Candis dyspnea score was 2. The patient did not qualify for supplemental oxygen at rest or with ambulation. There are no prior studies for comparison.
== END 2024-11-24 09:05 | disposition home or self-care (01) ==
LOC: ANHPFT 09:05
PROVIDERS: PCP Internal Medicine; Visit Provider Internal Medicine
DX: J44.9 Chronic obstructive pulmonary disease, unspecified (principal)
CPT/HCPCS: 94060; 94618; 94726; 94729

== ENCOUNTER 2024-11-27 09:59 | Outpatient (CLI) | payer MEDICARE, SELFPAY ==
--- NOTE | ~2024-11-27 | MM_ITS ---
EXAMINATION: MM screening vanda BI w nicolás HISTORY: Screening TECHNIQUE: Craniocaudal and mediolateral oblique 3-D tomosynthesis images were obtained and synthetic 2-D images were generated. CAD analysis was submitted and interpreted. COMPARISON: No prior mammogram is available for comparison at this institution. BREAST PARENCHYMAL COMPOSITION: Not dense: There are scattered areas of fibroglandular density. FINDINGS: There is no evidence of suspicious mass, calcification, or architectural distortion to sugg est malignancy in either breast. There has been no suspicious interval change. IMPRESSION: 1. No mammographic evidence of malignancy. 2. Recommend routine screening mammography in one year. BI-RADS Category 1: Negative Reviewed, dictated and finalized at location B.
--- OUTSIDE RECORDS SUMMARY | 2024-11-27 10:25 | XMS_ITS | Continuity of Care Document ---
Author Organization [facility] [place] [place] Address [address] [place] [address] Phone Care Team Providers Care Check Totaler Name Role Phone Parra OD, Shaun Unavailable Unavailable Procedures Procedure Date Eye Exam & Treatment Eye Exam & Treatment Eye Exam & Treatment Refraction Advance Directives Directive Yes / No Effective Date File Name No Information Encounters Encounter Description Practice Location Reason(s) For Visit Diagnoses Date Provider Providers Copied on Encounter [facility], [address] [place] [address] [address], [place], [place], [id number], tel:[phone] [facility] No Information 5-201 0 Parra OD Shaun. [address] [facility], [place], [place], [facility] [place], [place]. tel:[phone] [facility], [address] [place] [address] [address], [place], [place], [id number], tel:[phone] SEC [facility] No Information 2-200 9 Parra OD Shaun. [address], [place], [address], [place]. tel:[phone] [facility], [address] [place] [address] [address], [place], [place], [id number], tel:[phone] [facility] No Information Dec- 3-200 8 Parra OD Shaun. [address] [facility] [address], [place], [place], [facility], [place]. tel:[phone] Family History Family Member Type Diagnosis Age At Onset No Information Payers Payer name Insurance type Covered alliance party ID Authoriza tikrista(s) [place] [id number] Social History Type Description Quantity Date Captured [...]
--- OUTSIDE RECORDS SUMMARY | 2024-11-27 10:25 | XMS_ITS | Referral Summary ---
Author Organization [facility] Address [address] [place] [address] Care Team Providers Care Recruitment Manager Name Role Phone Johnie Ordaz MD Primary Care Provider + [phone] Allergies No known active allergies Medications blood [...] 03/09/2023 Assessment & Plan (03/09/2023 12:52 PM DEPUTY MANAGER): Differential diagnosis would include benign nodule [...] review. In addition she has an ongoing environmental monitoring technician to screen for atrial fibrillation which should [...] Tobacco: Never Tobacco Cessation:Counseling Given: Not Answered [facility] Utilities Answer Date Recorded In the past 12 months has [employer], gas, oil, or water [employer] threatened to shut off services in your [...] often do you attend chur ch or voodoo services? Never 05/22/2024 Do you belong to any clubs o r organizations such as episcopalian groups, unions, fraternal or athletic groups, or [...] any time in the past 12 m [facility], were you homeless or living in a care home (including now)? No 05/22/2024 Personal Safety Answer Date Recorded Have you ever been in or are you currently in a harmful physical or emotional relationship or is someone making you feel afraid or unsafe? Denies 05/21/2024 Comments No Sex and Gender Information Value Date Recorded Sex Assigned at Not on file Legal Sex Female 8:13 PM DEPUTY MANAGER Gender Identity Not on file Sexual Orientation Not on file Last Filed Vital Signs Vital Sign Reading Time Taken Comments Blood Pressure 120/60 07/10/2024 9:14 AM CDT Pulse 91 07/10/2024 9:14 AM CDT Temperature 36.3 C (97.3 F) 05/25/2024 11:34 AM DEPUTY MANAGER Respiratory Rate 19 07/10/2024 9:14 AM [...] Diagnosis Comments EGFR Routine 05/29/2024 6:03 AM DEPUTY MANAGER HEMOGLOBIN A1C STAT 05/21/2024 3:03 PM DEPUTY MANAGER LIPID PANEL STAT 05/21/2024 3:03 PM DEPUTY MANAGER from Last 3 Months or Most Recently Relevant to Health Maintenance Results * eGFR (05/29/2024 6:03 AM DEPUTY MANAGER) eGFR 62 >=60 mL/min/1. 73 m2 [...] was last reviewed 2021. Testing performed by: [facility], [address] [place] [address]., [address] Blood 05/29/2024 6:03 AM DEPUTY MANAGER 05/29/2024 8:14 AM DEPUTY MANAGER us Notinfile Unknown LAB BLOOD ORDERABLES Final Res ult JARED PÉREZ [address] [facility] Department [place] [address] * (ABNORMAL) Hemoglobin A1c (05/21/2024 3:03 PM DEPUTY MANAGER) Hgb A1C 6.7(H) 4.0 - 5.6 % Comment:Testing performed by : [address] [address] Estimated Average Glucose 146 mg/dL JARED PÉREZ Comment: The ADA recommends reporting an estimated Average Glucose (eAG) with all Hemoglobin A1c results using the equation derived from a study of 507 normal and diabetic adults. Minority populations were underrepresented and children were not included. (Diabetes Care 31:4889-6723, 2008). The eAG is not equivalent to a fasting glucose. Testing performed by: [address] [address] Blood 05/21/2024 3:03 PM DEPUTY MANAGER 05/21/2024 3:05 PM DEPUTY MANAGER us Jenise Joyce NP LAB BLOOD ORDERABLES Final Re sult JARED PÉREZ [address] [facility] Department [place] [address] * Lipid panel (05/21/2024 3:03 PM DEPUTY MANAGER) Cholesterol 167 30 - 199 mg/dL Comment: [...] last revised on 2017. Testing performed by: [address] [address] Triglycerides 100 <=149 mg/dL JARED PÉREZ Comment: [...] last revised on 2017. Testing performed by: [address] [address] HDL 44 >=40 mg/dL JARED Comment: Interpretive [...] last revised on 2017. Testing performed by: [address] [address] LDL, calculated 105 <=129 mg/dL JARED Comment: [...] last revised on 2023. Testing performed by: [address] [address] Non-HDL Cholesterol 123 mg/dL JARED Comment: Interpretive [...] last revised on 2017. Testing performed by: [facility], [address] [place] [address]., [address] Chol/HDL ratio 4 JARED Comment:Testing performed by : [facility], [address] [place] [address]., [address] Blood 05/21/2024 3:0 3 PM DEPUTY MANAGER 05/21/2024 3:05 PM DEPUTY MANAGER Jenise Joyce NP LAB BLOOD ORDERABLES Final Re sult [facility] [address] [facility] Department [place] [address] from Last 3 Months or Most Recently Relevant to Health Maintenance Insurance [employer] SENIOR SUPPLEMENT MEDICARE MEDICARE ADVANTAGE MEDICARE ADVANTAGE Advance Directives For more information, please contact: [phone] * Full Code (Latest Code Status on File) Date Activated Date Inactivated Comments 05/21/2024 3:27 PM 05/25/2024 7:46 PM Care Teams Recruitment Manager Relationship Specialty Start Date End Date Johnie Ordaz MD PCP - General Internal Medicine 08/23/20
--- OUTSIDE RECORDS SUMMARY | 2024-11-27 10:25 | XMS_ITS | Clinical Summary ---
Author Organization [facility] Address [address] [place] [address] Care Team Providers Care Melter Supervisor [employer] Name Role Phone Johnie Ordaz MD Primary Care Provider + [phone] Allergies No known active allergies Medications blood [...] 03/09/2023 Assessment & Plan (03/09/2023 12:52 PM POLYMER CHEMIST): Differential diagnosis would include benign nodule (macrofollicular [...] review. In addition she has an ongoing campus monitor to screen for atrial fibrillation which [...] Tobacco: Never Tobacco Cessation:Counseling Given: Not Answered [facility] Utilities Answer Date Recorded In the past 12 months has [employer], [employer], oil, or water [employer] threatened to shut off services in your [...] How often do you attend chur or advent services? Never 05/22/2024 Do you belong to any clubs o r organizations such as mandaen groups, unions, fraternal or athletic groups, or [...] any time in the past 12 m [facility], were you homeless or living in [...] on file Legal Sex Female 8:13 PM POLYMER CHEMIST Gender Identity Not on file Sexual Orientation Not on file Obstetrics History Last Filed Vital Signs Vital Sign Reading Time Taken Comments Blood Pressure 120/60 07/10/2024 9:14 AM CDT Pulse 91 07/10/2024 9:14 AM CDT Temperature 36.3 C (97.3 F) 05/25/2024 11:34 AM POLYMER CHEMIST Respiratory Rate 19 07/10/2024 9:14 AM CDT [...] Diagnosis Comments EGFR Routine 05/29/2024 6:03 AM POLYMER CHEMIST HEMOGLOBIN A1C STAT 05/21/2024 3:03 PM POLYMER CHEMIST LIPID PANEL STAT 05/21/2024 3:03 PM POLYMER CHEMIST from Last 3 Months or Most Recently Relevant to Health Maintenance Results * eGFR (05/29/2024 6:03 AM POLYMER CHEMIST) eGFR 62 >=60 mL/min/1. 73 m2 JARED [...] was last reviewed 2021. Testing performed by: [facility], [address] [place] [address]., [id number] Blood 05/29/2024 6:03 AM POLYMER CHEMIST 05/29/2024 8:14 AM POLYMER CHEMIST us Notinfile Unknown LAB BLOOD ORDERABLES Final Res ult JARED [address] [facility] Department [place] [address] * (ABNORMAL) Hemoglobin A1c (05/21/2024 3:03 PM POLYMER CHEMIST) Hgb A1C 6.7(H) 4.0 - 5.6 % Comment:Testing performed by : [address] [id number] Estimated Average Glucose 146 mg/dL JARED PÉREZ Comment: The ADA recommends reporting an estimated Average Glucose (eAG) with all Hemoglobin A1c results using the equation derived from a study of 507 normal and diabetic adults. Minority populations were underrepresented and children were not included. (Diabetes Care 31:9578-2444, 2008). The eAG is not equivalent to a fasting glucose. Testing performed by: [address] [address] Blood 05/21/2024 3:03 PM POLYMER CHEMIST 05/21/2024 3:05 PM POLYMER CHEMIST us Jenise Joyce NP LAB BLOOD ORDERABLES Final Re sult JARED [address] [facility] Department [place] [address] * Lipid panel (05/21/2024 3:03 PM POLYMER CHEMIST) Cholesterol 167 30 - 199 mg/dL Comment: [...] last revised on 2017. Testing performed by: [address] [address] Triglycerides 100 <=149 mg/dL JARED Comment: Interpretive [...] last revised on 2017. Testing performed by: [address] [address] HDL 44 >=40 mg/dL JARED Comment: Interpretive [...] last revised on 2017. Testing performed by: [facility], [address] [place] [address]., [id number] LDL, calculated 105 <=129 mg/dL JARED Comment: [...] last revised on 2023. Testing performed by: [address] [address] Non-HDL Cholesterol 123 mg/dL JARED Comment: Interpretive [...] last revised on 2017. Testing performed by: [facility], [address] [place] [address]., [id number] Chol/HDL ratio 4 JARED PÉREZ Comment:Testing performed by : [facility], [address] [place] [address]., [id number] Blood 05/21/2024 3:03 PM POLYMER CHEMIST 05/21/2024 3:05 PM POLYMER CHEMIST us Jenise Joyce NP LAB BLOOD ORDERABLES Final Re sult PETRTARA PÉREZ [address] [facility] Department [place] [address] from Last 3 Months or Most Recently Relevant to Health Maintenance Insurance [employer] [place] [address] [facility] Address: [address] [address] [place] [address] [facility] Address: [facility] [address] [place] [address] Advance Directives For more information, please contact: [phone] * Full Code (Latest Code Status on File) Date Activated Date Inactivated Comments 05/21/2024 3:27 PM 05/25/2024 7:46 PM Care Teams Melter Supervisor [employer] Relationship Specialty Start Date End Date Johnie Ordaz MD PCP - General Internal Medicine 08/23/20
--- OUTSIDE RECORDS SUMMARY | 2024-11-27 10:26 | XMS_ITS | Data Portability ---
Author Organization [place] [facility] [employer], Main Office Address [address] [place] [address] Care Team Providers Care Worship Pastor Name Role Phone NOEL ORDAZ Primary Care Provider [phone] NOEL ORDAZ Referring Provider [phone] Assessment Encounter Date Assessment Date Assessment LastModified [...] This note is dictated and transcribed by [employer]. [employer] Merchandising variances may occur. Despite proofreading, typographical errors may occur. Occasional wrong-word or 'fykzv-k-[id number]' substitutions may have occurred due to the [...] schedule on or after 05/03/2024. Thanks 2023 [facility] [place], [address] [place], [address], 04/11/2024 10:10:34 physical therapist referral - Please contact patient to schedule 2023 024 [facility], [address] [place], [address], 02/15/2024 14:55:44 occupatio nal therapist referral - Please contact patient to schedule [address] Physical[facility], [address] [place], [address], 02/02/2024 21:15:03 Procedures None recorded. Surgeries None recorded. Imaging XR, shoulder, 2 or more view 2023 024 [facility] [place], [address] [facility], [place], [address], 04/10/2024 20:15:51 XR, wrist, 3 or more view 2023 024 [facility] [place], [address] [facility], [place], [address], 04/10/2024 20:15:51 XR, shoulder, 2 or more view 2023 024 [facility] [place], [address] [facility], [place], [address], 03/01/2024 17:07:46 XR, wrist 2023 024 [facility] [place], [address] [facility], [place], [address], 03/01/2024 17:07:46 XR, shoulder 2023 024 [email or web address] [facility] [place], [address], [place], [address], 02/03/2024 16:23:40 XR, wrist 2023 024 [email or web address] [facility] [place], [address], [place], [address], 02/03/2024 16:24:00 XR, shoulder, 2 or more view 2023 024 [email or web address] [facility] [place], [address], [place], [address], 01/19/2024 16:27:44 XR, wrist, 3 or more view 2023 024 [email or web address] [facility] [place], [address], [place], [address], 01/19/2024 16:27:44 Medication Orders None recorded. Patient [...] resul t No observ ation record ed. [email or web address] Not Available 01/03 10:07:57 01/05/20 24 XR, knee, 3 view No observ ation record ed. [email or web address] [facility] [place] [address] [facility] [address], [place], [address], 01/05/2024 10:57:36 01/19/20 24 XR, shoul rosemary, 2 or more view No observ ation record ed. [email or web address] [facility] [place] [address] [facility] [address], [place], [address], 01/19/2024 11:15:11 01/19/20 24 XR, wrist , 3 or more view No observ ation record ed. [email or web address] [facility] [place] [address] [facility] [address], [place], [address], 01/19/2024 11:15:16 02/02/20 24 XR, shoul rosemary No observ ation record ed. [email or web address] [facility] [place] [address], [place], [address], 02/02/2024 10:34:49 02/02/20 24 XR, wrist No observ ation record ed. [email or web address] [facility] [place] [address] [facility] [address], [place], [address], 02/02/2024 10:34:57 02/28/20 24 XR, shoul rosemary, 2 or more view No observ ation record ed. [email or web address] [facility] [address], [place], [address], 02/28/2024 11:04:53 02/28/20 24 XR, wrist No observ ation record ed. [email or web address] [facility] [address], [address], 02/28/2024 11:05:11 04/10/20 24 XR, shoul rosemary, 2 or more view No observ ation record ed. [email or web address] [facility] [address], [place], [address], 04/10/2024 10:50:51 04/10/20 24 XR, wrist , 3 or more view No observ ation record ed. [email or web address] [facility] [address], [address], 04/10/2024 10:56:46 Result Notes None recorded. Problems Name Problem SNOMED Code Status Onset Date Resolution Date Notes Provider Name and Address Organization Details Recorded Time Acquired trigger finger 4291904 Active Not Available [facility] 3 07:43:33 Radiother apy follow-up 797257482 Active Not Available [facility] 3 07:43:33 Anxiety disorder 344268442 Active Not Available [facility] 3 07:43:33 Fractured nasal bones 072426289 Active Not Available [facility] 3 07:43:33 Pure hyperchol esterolem ia 877167674 Active Not Available [facility] 3 07:43:33 Pain in right arm 883232365 Active Not Available [facility] 3 07:43:33 Knee pain Active Not Available [facility] 3 07:43:33 Osteoarth ritis 230638170 Active Not Available [facility] 3 07:43:33 Essential hypertens ion 61920669 Active Not Available [facility] 3 07:43:33 Diabetes mellitus 51007581 Active Not Available [facility] 3 07:43:33 Low back pain 405194426 Active 2016 Not Available [facility] 3 07:43:33 Dysuria 32943277 Active 2016 Not Available [facility] 3 07:43:33 Pain of right wrist 50118493756 9100 Active 2017 Not Available [facility] 3 07:43:33 Rhinitis 77403976 Active 2017 Not Available [facility] 3 07:43:33 Vitamin D deficienc y 29550972 Active 2018 Not Available [facility] 3 07:43:33 Osteoarth ritis of right knee joint 17457164136 9100 Active 2018 Not Available [facility] 3 07:43:33 Achilles tendiniti s 88273479 Active 2019 Not Available [facility] 3 07:43:32 Hyperchol esterolem ia 01447680 Active 2019 Not Available [facility] 3 07:43:32 Osteophyt e of bone 92400361323 9100 Active 2019 Not Available [facility] 3 07:43:33 Arthritis 1448096 Active 2019 Not Available [facility] 3 07:43:33 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 Not Available [facility] 3 07:43:33 Closed intertroc hanteric fracture 90480529 Active 2020 Not Available [facility] 3 07:43:33 Trochante heladio bursitis of right hip 25761382539 9100 Active 2021 Not Available [facility] 3 07:43:33 Urinary tract infectiou s disease 42256830 Active 2021 Not Available [facility] 3 06:42:22 Long-term drug therapy Active 2021 Not Available [facility] 3 07:43:33 Adult health examinati on Active 2021 Not Available [facility] 3 07:43:33 Anemia 110119677 Active 2021 Not Available [facility] 3 07:43:33 Screening for disorder Active 2021 Not Available [facility] 3 07:43:33 Dysphagia 91782691 Active 2021 Not Available [facility] 3 07:43:33 Weight loss 89459815 Active 2021 Not Available [facility] 3 07:43:33 Abdominal pain 20541207 Active 2021 Not Available [facility] 3 07:43:33 Osteoarth ritis of knee 613149727 Active 2021 Not Available [facility] 3 07:43:33 Nodule of lung 767590469 Active 2021 3.5 mm right lower lobe August 2021 Not Available [facility] 3 07:43:33 Nodule of adrenal cortex 235864782 Active 2021 18 mm right adrenal lipoma Not Available [facility] 3 07:43:33 Disorder of adrenal gland 35990572 Active 2021 Not Available [facility] 3 07:43:33 Acute urinary tract infection 861564111 Active 2021 Not Available [facility] 3 07:43:33 Contusion of right hip region 84696066289 334524 Active 09/27/ 2022 Not Available [facility] 3 07:43:32 Pain of right hip joint 80570534142 9102 Active 2021 Not Available [facility] 3 07:43:33 Conjuncti vitis 3092212 Active 2021 Not Available [facility] 3 07:43:33 Acute conjuncti vitis 40526842 Active 2021 Not Available [facility] 3 07:43:33 Type 2 diabetes mellitus without complicat ion 907953347 Active 2021 Not Available [facility] 3 07:43:33 Anxiety 69822881 Active 2022 Not Available [facility] 3 07:43:33 Cough 64699564 Active 2022 Not Available [facility] 3 07:43:33 CT of chest abnormal 68217819794 726575 Active 2022 Not Available [facility] 3 07:43:33 Thyroid nodule 093707355 Active 2022 referred to Endocrino logy Not Available [facility] 3 07:43:33 Bilateral chronic serous otitis 808724457 Active 2023 Shankar Hoover MD [address], [address] , [facility] 4 11:06:18 Pain of left shoulder joint 57443433921 567290 Active 2023 MARYURI Miguel, [facility] 4 10:19:12 Pain of left wrist 17345081496 9102 Active 2023 MARYURI Miguel, [facility] 4 10:19:33 Pain of left knee joint 66363293295 4107 Active 2023 MARYURI Miguel, [facility] 4 10:19:54 Dystrophi a unguium 33576502 Active 2024 Neno Hernandez DPM [address] [facility], [place], [address] , [facility] 11:00:42 Notes:Some problems listed i n Document: #[id number] could not be added to this patient's chart. Please review this document and add these problems to the patient's chart manually as needed. Problem Notes None recorded. Procedures Surgical History Date Name Laterality Status Provider Name and Address Organization Details Recorded Time 08/15/19 Medicare Wellness CPT Code, subsequent completed Veda Franco RN [place] [email or web address] 08/14/2022 14:14:08 07/17/19 23 Ortho - Cortisone Injection completed Kendrick Quintana MD [address] [facility], [address], [place], [address], [facility] 07/16/2022 11:08:33 07/17/19 22 EGD completed Not Available [facility] 04:42:13 07/17/19 22 Colonoscopy completed Not Available [facility] 07/02/19 04:42:13 05/09/19 21 Most Recent Bone Density completed Not Available [facility] 07/01/2022 04:42:11 12/16/19 19 Date of Last Colonoscopy completed Not Available [facility] 07/01/2022 04:42:11 12/16/19 19 Colonoscopy completed Not Available [facility] 07/02/19 04:42:13 10/01/19 17 release of trigger finger completed Not Available [facility] 07/01/2022 04:42:13 10/21/19 16 release of trigger finger completed Not Available [facility] 07/01/2022 04:42:13 06/12/19 11 Colonoscopy completed Not Available [facility] 07/02/19 04:42:13 completed Not Available [facility] 0 07/01/2022 04:42:13 Unlisted px femur/knee completed Not Available [facility] 07/01/2022 04:42:13 Back [facility] 07/01/2022 04:42:13 Gallbladder Surgery completed Not Available [facility] 07/01/2022 04:42:13 Tonsillectomy completed Not Available [facility] 07/01/2022 04:42:13 Imaging Results None recorded. [...] mg by injectio n route. 10/14 completed [facility]: [phone] 08-20 Not Available Not Available Not [...] (50,000 unit) capsule take one capsule by [facility] for 12 weeks active Not Available Not [...] e 50 mcg/actua tion nasal spray,tarah pension [place] 2 sprays every day by intranas al [...] n administ ered by the provider active [facility]: [phone] 10-17 Not Available Not Available [...] subcutan eous route. 04/19 completed lot # [id number] - exp. 03/22 - given in left deltoid Not Available Not Available Not Available [employer] ST 0.3 %-0.05 % eye drops,atrah pension INSTILL 3 DROP INTO BOTH EYE(S) [...] Available Not Available Not Available Fluzone High-Dose 5109-8061 (PF) 180 mcg/0.5 mL intramusc ular syringe [...] /min 97.6 [degF] 120/77 mm[Hg] Horace Markham [facility] 10:22:50 Date Recorded Body mass index (BMI) Body weight Provider Name and Address Organization Details Last Updated DateTime 09/12/2024 27.5 kg/m2 56920.74 g Ann-Marie Ziegler [facility] 09/12/2024 10:27:58 Date Recorded Body height Body mass index (BMI) Body weight Pain severity - 0-10 verbal numeric rating [Score] - Reported Provider Name and Address Organization Details Last Updated DateTime 01/19/2024 165.1 cm 28.3 kg/m2 44271.7 g 6 Suzanne Ferguson [facility] 01/19/2024 09:57:56 Date Recorded Body height Provider Name an d Address Organization Details Last Updated DateTime 02/02/2024 165.1 cm Neda Braxton [facility] 02/02/2024 10:33:54 Date Recorded Body height Body mass index (BMI) Body weight Pain severity - 0-10 verbal numeric rating [Score] - Reported Provider Name and Address Organization Details Last Updated DateTime 02/28/2024 165.1 cm 28.3 kg/m2 81473.7 g 7 Suzanne Ferguson [facility] 02/28/2024 11:04:17 Date Recorded Body height Body mass index (BMI) Body weight Pain severity - 0-10 verbal numeric rating [Score] - Reported Provider Name and Address Organization Details Last Updated DateTime 04/10/2024 165.1 cm 28.3 kg/m2 72403.7 g 7 Suzanne Ferguson [facility] 04/10/2024 10:49:54 Social History Question Answer Notes LastModified by Organizat ion Details LastModified Time Tobacco Smoking Status Former Smoker quit in 1999 Not Available [facility] 07/01/2022 04:41:55 Do You Have An Advance Directive? Yes MIGRATION.31420 53604 Information not available 07/01/2022 Are You Blind Or Do You Have Difficulty Seeing? No MIGRATION.42224 59318 Information not available 07/01/2022 What Is Your Level Of Caffeine Consumption? Occasional MIGRATION.24952 00317 Information not available 07/01/2022 How Much Tobacco Do You Chew? None MIGRATION.73259 23443 Information not available 07/01/2022 In The 14 Days Before Symptom Onset, Have You Had Close Contact With A Laboratory-confi rmed COVID-19 While That Case Was Ill? No MIGRATION.86634 38269 Information not available 07/01/2022 In The 14 Days Before Symptom Onset, Have You Had Close Contact With A Person Who Is Under Investigation For COVID-19 While That Person Was Ill? No MIGRATION.01001 72871 Information not available 07/01/2022 Are You Deaf Or Do You Have Serious Difficulty Hearing? No MIGRATION.92798 40847 Information not available 07/01/2022 What Type Of Diet Are You Following? REGULAR MIGRATION.97435 00464 Information not available 07/01/2022 Which Illicit Or Recreational Drugs Have You Used? None MIGRATION.86372 18918 Information not available 07/01/2022 What Is The Highest Grade Or Level Of School You Have Completed Or The Highest Degree You Have Received? NH90347-3 MIGRATION.76629 99183 Information not available 07/01/2022 Have There Been Any Changes To Your Family Or Social Situation? No MIGRATION.19553 17534 Information not available 07/01/2022 What Is The Fluoride Status Of Your Home? Unknown MIGRATION.62020 32411 Information not available 07/01/2022 When Did You Quit Smoking? 16+yearssincelastc igarette MIGRATION.46141 91300 Information not available 07/01/2022 Are There Any Guns Present In Your Home? No MIGRATION.58745 53662 Information not available 07/01/2022 Do You Use Insect Repellent Routinely? No MIGRATION.65804 15356 Information not available 07/01/2022 Where Do You Live? [facility] MIGRATION.75099 72736 Information not available 07/01/2022 Presence Of Domestic [...] Do You Have A Medical Power Of Operations Processor? No MIGRATION.18659 86492 Information not available 07/01/2022 What Was The Date Of Your Most Recent Tobacco Screening? 09/12/2024 [email or web address] Information not available 09/12/2024 Do You Have Any Pets? Yes MIGRATION.52303 89726 Information not available 07/01/2022 What Is Your Relationship Status? Domestic Partner MIGRATION.77530 04778 Information not available 07/01/2022 Do You Use Your Seat Belt Or Car Seat Routinely? Yes MIGRATION.86285 01347 Information not available 07/01/2022 Do You Have Smoke And Carbon Monoxide Detectors In Your Home? Yes MIGRATION.62354 52342 Information not available 07/01/2022 Are You Passively Exposed To Smoke? No MIGRATION.25198 80276 Information not available 07/01/2022 Are There Any Smokers In Your House? No MIGRATION.52174 42988 Information not available 07/01/2022 How Much Tobacco Do You Smoke? No Was 2ppd MIGRATION.05803 57877 Information not available 07/01/2022 What Types Of Sporting Activities Do You Participate In? None MIGRATION.54683 98213 Information not available 07/01/2022 Do You Use Sunscreen Routinely? No Information not available 08/14/2022 Has Tobacco Cessation Counseling Been Provided? No MIGRATION.88379 89390 Information not available 07/01/2022 Have You Recently Traveled Abroad? No MIGRATION.96906 95347 Information not available 07/01/2022 Do You Have Difficulty Walking Or Climbing Stairs? No MIGRATION.73237 20812 Information not available 07/01/2022 Do You Have Any Dietary Restrictions? No MIGRATION.68131 48716 Information not available 07/01/2022 Sex: Female Functional Status Question Answer Note LastModified by Organizat ion Details LastModified Time Do you use any illicit or recreational drugs? No MIGRATION.30505 01658 Information not available 07/01/2022 Do you or have you ever used any other forms of tobacco or nicotine? No MIGRATION.07125 28718 Information not available 07/01/2022 What is your level of alcohol consumption? None MIGRATION.75302 32388 Information not available 07/01/2022 Do you or have you ever used smokeless tobacco? Never used smokeless tobacco MIGRATION.02302 85347 Information not available 07/01/2022 Do you have transportation difficulties? No MIGRATION.39832 47881 Information not available 07/01/2022 Are you able to walk? YESWOREST MIGRATION.64670 08454 Information not available 07/01/2022 Do you have difficulty doing errands alone? No MIGRATION.22048 02319 Information not available 07/01/2022 Are you able to care for yourself independently? Yes MIGRATION.05005 92668 Information not available 07/01/2022 What is your occupation? retired MIGRATION.38163 29476 Information not available 07/01/2022 Do you have difficulty dressing, bathing, grooming, or toileting? No MIGRATION.66028 84918 Information not available 07/01/2022 Do you or have you ever used e-cigarettes or vape? Never used electronic cigarettes MIGRATION.10575 35607 Information not available 07/01/2022 What is your exercise level? None stays active Information not available 08/14/2022 Mental Status Question Answer Note LastModified by Organizat ion Details LastModified Time Do you feel stressed (tense, restless, nervous, or anxious, or unable to sleep at night)? [id number] MIGRATION.06160695 26 Information not available 07/01/2022 Do you have difficulty concentrating, remembering or making decisions? No MIGRATION.17485990 26 Information not available 07/01/2022 Family History Relationship Description Onset Age of this Age Resolved Age Notes LastModified by Organization Details LastModified Time Mother Colostomy MIGRATION.878 [id number] Not available 07/01/2022 04:42:20 Sister Family history of malignant neoplasm MIGRATION.712 6847910 Not available 07/01/2022 04:42:20 Sister COVID-19 deceas ed MIGRATION.750 7355618 Not available 07/01/2022 04:42:20 Son Family history of malignant neoplasm MIGRATION.349 9011292 Not available 07/01/2022 04:42:20 Notes:NO ENT Medical History Condition Response NERVE DISEASE N BLINDNESS N RHEUMATIC FEVER N KIDNEY STONES N BLADDER PROBLEMS N MRSA N OTHER # 1 N POLIO N LUNG DISEASE/DISORDER N COPD N RADIATION / CHEMOTHERAPY N Other # 2 N BLOOD DISEASES [...] GLAUCOMA N FOOT PROBLEM N DIVERTICULITIS N CHICKENPOX N SLEEP APNEA N INFECTIOUS DISEASE N PROSTATE N HEART ARRHYTHMIA N INSOMNIA N HIGH CHOLESTEROL / HYPERLIPIDEMIA Y EYE PROBLEMS N HYPERTHYROIDISM N NEUROLOGICAL PROBLEMS N EDEMA N CHRONIC PAIN SYNDROME N HYPOTHYROIDISM N CONSTIPATION N CAROTID BLOCKAGE N BACK / NECK PROBLEMS N HAVE YOU BEEN HOSPITALIZED OR SEEN IN [facility] IN THE PAST YEAR ? N [...] virus, trivalent, preservative 3 completed Not Available [facility] 04/05/2023 07:43:34 zoster, unspecified formulation 0 completed Not Available [facility] 04/05/2023 07:43:33 pneumococcal polysaccharide PPV23 0 completed Not Available [facility] 04/05/2023 07:43:34 Influenza, high-dose, trivalent, PF 0 completed Not Available [facility] 04/05/2023 07:43:34 Tdap 9 completed Not Available [facility] 04/05/2023 07:43:34 Influenza, high-dose, trivalent, PF 9 completed Not Available [facility] 04/05/2023 07:43:34 Pneumococcal conjugate PCV 13 7 completed Not Available [facility] 04/05/2023 07:43:34 Influenza, high-dose, trivalent, PF 7 completed Not Available [facility] 04/05/2023 07:43:34 Influenza, high-dose, quadrivalent, PF 9 completed Not Available [facility] 04/05/2023 07:43:34 pneumococcal, unspecified formulation 4 completed Not Available [facility] 04/05/2023 07:43:34 Influenza, split virus, trivalent, preservative 3 completed Not Available [facility] 04/05/2023 07:43:34 Past Encounters Encounter ID Performer Location Encounter Start Date Encounter Closed Date Diagnosis/Indication Diagnosis SNOMED-CT Code Diagnosis ICD10 Code Diagnosis Note [id number] Noel Ordaz MD [facility] Internal Med [facility] [address] [address] 08/19/2020 00:00:00 08/24/2020 21:06:00 [id number] Noel [facility] MD [facility] [address] [address] 09/06/2020 00:00:00 09/22/2020 17:54:42 [id number] Noel Ordaz MD [facility] Internal Med [facility] [address] [address] 11/27/2020 00:00:00 12/01/2020 10:20:57 [id number] Kendrick Quintana MD [facility] [place] [address] [place] [address] 12/19/2020 00:00:00 12/19/2020 15:03:41 [id number] MD SHAMIR [facility] [place] [address] [place] [address] 01/16/2021 00:00:00 01/16/2021 10:15:45 [id number] Noel Ordaz MD [facility] [address] [facility] [address] 03/17/2021 00:00:00 03/29/2021 17:37:35 [id number] Kendrick Quintana MD [facility] [address] [address] 04/29/2021 00:00:00 04/29/2021 09:46:31 [id number] Kendrick Quintana MD [facility] [address] [address] 05/27/2021 00:00:00 05/27/2021 09:27:52 [id number] Noel Ordaz MD [facility] [address] [address] 06/09/2021 00:00:00 07/06/2021 20:54:16 [id number] Noel Ordaz MD [facility] [address] [facility] [address] 07/04/2021 00:00:00 07/27/2021 17:49:16 [id number] Noel Ordaz MD [facility] 15 [address] [facility] [address] [address] 08/08/2021 00:00:00 08/23/2021 19:21:55 [id number] Kendrick Quintana MD [facility] [place] [address] [place] [address] 08/19/2021 00:00:00 08/19/2021 14:36:35 [id number] Noel Ordaz MD [facility] [address] [address] 09/05/2021 00:00:00 09/05/2021 22:19:44 [id number] Kendrick Quintana MD [facility] [place] [address] [place] [address] 09/30/2021 00:00:00 09/30/2021 14:04:01 [id number] Kendrick Quintana MD [facility] [place] [address] [place] [address] 10/28/2021 00:00:00 10/28/2021 13:46:53 [id number] Noel Ordaz MD [facility] [place] [address] [address] 12/02/2021 00:00:00 01/10/2022 11:43:58 [id number] Kendrick Quintana MD [facility] [address] [address] 12/30/2021 00:00:00 12/30/2021 10:38:57 [id number] Kendrick Quintana MD [facility] [address] [address] 01/27/2022 00:00:00 01/27/2022 09:39:23 [id number] Kendrick Quintana MD [facility] [address] [address] 02/10/2022 00:00:00 02/10/2022 09:25:31 [id number] Kendrick Quintana MD [facility] [address] [address] 9 03/10/2022 00:00:00 03/10/2022 10:24:18 [id number] Noel Ordaz MD [facility] [place] [address] [address] 04/03/2022 00:00:00 04/03/2022 10:29:50 [id number] Kendrick Quintana MD [facility] [place] [address] [place] [address] 07/16/2022 10:45:59 07/16/2022 12:01:06 Contusion of right hip region [id number] S70.01XD Pain of ri ght hip joint 5470115856 81765 M25.551 Trochanter ic bursitis of right hip 9298136339 39055 M70.61 [id number] Noel Ordaz MD [facility] Internal Med [facility] [address] [facility] [address] 08/14/2022 13:46:37 08/14/2022 14:44:49 Adult health examination 691223149 Z00.00 Screening for disorder 166796120 Z13.9 Anxiety 80312822 F41.9 Hypercholesterolemia 136 65751 E78.00 Essential hypertension 77752263 I10 Pure hypercholesterolemia 583301749 E78.00 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 925752043 E11.9 [id number] Noel Ordaz MD [facility] Internal Med [facility] [address] [facility] [address] 09/25/2022 11:15:07 09/25/2022 12:27:49 Diabetes mellitus 69662147 E11.9 Essential hypertension 22648677 I10 Nodule of lung 991571559 R91.1 Hypercholesterolemia 136 72670 E78.00 Anxiety 63702498 F41.9 [id number] Noel Ordaz MD [facility] Internal Med [facility] [address] [facility] [address] 10/14/2022 10:24:55 10/14/2022 11:20:28 Essential hypertension 09943398 I10 Hypercholesterolemia 136 06768 E78.00 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 005014511 E11.9 [id number] Noel Ordaz MD [facility] Internal Med [facility] [address] [facility] [address] [address] 11/26/2022 10:18:25 11/26/2022 12:06:32 Pure hypercholesterolemia 882981348 E78.00 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 829234001 E11.9 Essential hypertension 98993597 I10 [id number] Noel Ordaz MD [facility] Internal Med [place] [address]43 [facility] [address] [address] [place] [address] 02/01/2023 11:02:25 02/01/2023 12:42:17 Essential hypertension 94462821 I10 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 452899774 E11.9 Thyroid nodule 091938575 E04.1 Nodule of adrenal cortex 782898802 E27.8 Nodule of lung 024718126 R91.1 [id number] Shankar Hoover MD [facility] [place] [address] [place] [address] 12/08/2023 10:20:41 12/08/2023 11:48:33 Bilateral chronic serous otitis 296695498 H65.23 [id number] Christiano Loera MD [facility] [place] [address] [place] [address] 01/05/2024 09:57:28 01/05/2024 11:17:17 Pain of left shoulder joint 1444756295 2332398 M25.512 Pain of left wrist 10896 28666 96392 M25.532 Pain of le ft knee joint 1162847332 02125 M25.958 [id number] Christiano Loera MD [facility] Ortho [place] [address] [place] [address] 01/19/2024 09:52:28 01/19/2024 10:23:53 Pain of left shoulder joint 5473224726 7156052 M25.512 Pain of left wrist 14803 30310 90353 M25.532 Pain of le ft knee joint 3574670004 02267 M25.167 [id number] Christiano Loera MD [facility] Ortho [place] [address] [place] [address] 02/02/2024 10:29:59 02/02/2024 11:12:10 Pain of left shoulder joint 8152083208 3142420 M25.512 Closed intertrochanteric fracture 31946029 S72.141D Pain of left wrist 00920 94552 64660 M25.221 [id number] Christiano Loera MD [facility] [address] [place] [address] 02/28/2024 11:00:37 02/28/2024 11:42:36 Pain of left shoulder joint 2246086768 0598587 M25.512 Pain of left wrist 19991 83159 06344 M25.040 [id number] Christiano Loera MD [facility] [address] [place] [address] 04/10/2024 10:45:00 04/10/2024 12:36:06 Pain of left shoulder joint 4692561786 6413307 M25.512 Pain of left wrist 12060 04626 49910 M25.431 [id number] Neno Hernandez DPM [facility] Podiatry [place] [address] [facility] [address] [place] [address] 09/12/2024 10:07:31 09/18/2024 13:27:56 Diabetes mellitus 98570851 E11.9 Patient educated on neuropathy , diabetes, diabetic diet, and daily foot exams. Patient is to check feet daily for new wounds, blisters, redness to prevent infection and ulceration s to the feet. Patient will return to clinic in 3 months for diabetic foot workup. Dystrophia unguium [id number] L60.3 Nails 1 through 10 were [...] Soto Member ID Guarantor Name 09/18/2024 1 [facility] (MEDICARE REPLACEMENT/A DVANTAGE - HMO) [id number] Pinky Yao [id number] Pinky Yao OBGyn Episode No OBEpisode recorded.
--- OUTSIDE RECORDS SUMMARY | 2024-11-27 10:26 | XMS_ITS | Data Portability ---
Author Organization [facility] Angelita Address [address] [place] [address] Care Team Providers Care Mill Tender Warm Up Name Role Phone NOEL ORDAZ Primary Care [...] of her diabetes follow up 3 months [email or web address] Not available 03/04/2024 16:49:35 04/07/2024 04/07/2024 the [...] has been reviewed has an appointment with inside phone sales for comprehensive foot exam 04/11/2024. Offered her home ambulatory blood pressure monitoring through our program and she declined [email or web address] Not available 04/08/2024 14:36:02 06/23/2024 06/23/2024 I will see her back 2 months we will continue current therapy refill the amlodipine 5 mg daily significance of her findings discussed see me in 2 months hospital records reviewed [email or web address] Not available 06/24/2024 21:05:01 08/23/2024 08/23/2024 Suspect [...] keep regular follow up hospital records reviewed [place] [id number] Not available 08/27/2024 21:17:50 10/13/2024 10/13/2024 We will try to get her back in physical therapy I encouraged to get the thyroid ultrasound ultrasound done chiki. Other diagnosis and medications have been discussed follow up in 4 [place] [address] Not available 10/14/2024 16:46:11 Plan of Treatment Reminders Order Date Submit Date Provider Last Modified By Organization Details Last Modified Time Details Appointments ANY 15 2024 10:00A M Noel Ordaz MD Not available Not available Not available Lab HbA1c (hemoglob in A1c), blood 2024 025 [facility], [address], [place], [address], 10/14/2024 06:15:42 lipid panel, serum 2024 025 [facility], [address], [place], [address], 10/14/2024 06:15:39 CMP, serum or plasma 2024 025 [place], [address], [place], [address], 10/14/2024 06:15:41 CBC w/ auto diff 2024 025 [place] [facility], [address], [place], [address], 10/14/2024 06:15:43 Referral physical therapist referral 2024 025 [facility], [facility], [place], [address], 10/23/2024 13:25:22 podiatris t referral 2023 024 adin Neno Hernandez DPM, [address] [facility] [address], [place], [address], 09/27/2024 15:40:03 Procedures None recorded. Surgeries None recorded. Imaging None recorded. Medication Orders amlodipin e 5 mg tablet 2024 025 [facility], [address] [place] [address], [address], 06/23/2024 12:47:57 Patient TargetsNo targets recorded. 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 Referral for Type 2 diabetes mellitus Referring Physician: Noel Ordaz, Internal Medicine, Encounter Date: 03/03/2024 Physical Therapist Referral for Abnormal gait Referring Physician: Noel Ordaz, Internal Medicine, Encounter Date: 10/13/2024 Results Created Date Observation Date Name Description Value Unit Range Abnormal Flag Note LastModifiedBy Organization Detail LastModifiedTime 10/14/1910/14/2024 LIPID PANEL cholesterol, total 102 mg/dL 100-19 9 Not Available [facility] ([facility]) [address] [facility], [place], [address], 10/14/2024 06:15:39 10/14/1910/14/2024 LIPID PANEL triglyceride s 75 mg/dL 0-149 Not Available [facility] ([facility]) [address] [facility], [place], [address], 10/14/2024 06:15:39 10/14/1910/14/2024 LIPID PANEL HDL cholesterol 50 mg/dL >39 Not Available [facility] ([facility]) [address] [facility] [place], [address], 10/14/2024 06:15:39 10/14/19 25 10/14/2024 LIPID PANEL VLDL cholesterol patricia 16 mg/dL 5-40 Not Available [facility] ([facility]) [address] [facility] [place], [address], 10/14/2024 06:15:39 10/14/19 25 10/14/2024 LIPID PANEL LDL chol calc ([facility]) 36 mg/dL 0-99 Not Available [facility] ([facility]) [address] [place], [address], 10/14/2024 06:15:39 10/14/19 25 10/14/2024 COMP. METAB OLIC PANEL (14) glucose 109 mg/dL 70-99 above high normal Not Available [facility] ([facility]) [address] [place], [address], 10/14/2024 06:15:41 10/14/19 25 10/14/2024 COMP. METAB OLIC PANEL (14) BUN 11 mg/dL 8-27 Not Available [facility] ([facility]) [address] [place], [address], 10/14/2024 06:15:41 10/14/19 25 10/14/2024 COMP. METAB OLIC PANEL (14) creatinine 0.94 mg/dL 0.57-1 .00 Not Available [facility] ([facility]) [address] [place], [address], 10/14/2024 06:15:41 10/14/19 25 10/14/2024 COMP. METAB OLIC PANEL (14) eGFR 64 mL/mi n/1.7 3 >59 Not Available [facility] ([facility]) [address] [place], [address], 10/14/2024 06:15:41 10/14/19 25 10/14/2024 COMP. METAB OLIC PANEL (14) BUN/creatini ne ratio 12 12-28 Not Available [facility] ([facility]) [address] [facility], [place], [address], 10/14/2024 06:15:41 10/14/19 25 10/14/2024 COMP. METAB OLIC PANEL (14) sodium 141 mmol/ L 134-14 4 Not Available [facility] ([facility]) [address] [facility], [place], [address], 10/14/2024 06:15:41 10/14/19 25 10/14/2024 COMP. METAB OLIC PANEL (14) potassium 4.7 mmol/ L 3.5-5. 2 Not Available [facility] ([facility]) [address] [facility], [place], [address], 10/14/2024 06:15:41 10/14/19 25 10/14/2024 COMP. METAB OLIC PANEL (14) chloride 107 mmol/ L 96-106 above high normal Not Available [facility] ([facility]) [address] [place], [address], 10/14/2024 06:15:41 10/14/19 25 10/14/2024 COMP. METAB OLIC PANEL (14) carbon dioxide, total 22 mmol/ L 20-29 Not Available [facility] ([facility]) [address] [place], [address], 10/14/2024 06:15:41 10/14/19 25 10/14/2024 COMP. METAB OLIC PANEL (14) calcium 10.3 mg/dL 8.7-10 .3 Not Available [facility] ([facility]) [address] [place], [address], 10/14/2024 06:15:41 10/14/19 25 10/14/2024 COMP. METAB OLIC PANEL (14) protein, total 6.5 g/dL 6.0-8. 5 Not Available [facility] ([facility]) [address] [place], [address], 10/14/2024 06:15:41 10/14/19 25 10/14/2024 COMP. METAB OLIC PANEL (14) albumin 4.1 g/dL 3.8-4. 8 Not Available [facility] ([facility]) [address] [place], [address], 10/14/2024 06:15:41 10/14/19 25 10/14/2024 COMP. METAB OLIC PANEL (14) globulin, total 2.4 g/dL 1.5-4. 5 Not Available [facility] ([facility]) [address] [place], [address], 10/14/2024 06:15:41 10/14/19 25 10/14/2024 COMP. METAB OLIC PANEL (14) bilirubin, total 0.4 mg/dL 0.0-1. 2 Not Available [facility] ([facility]) [address] [place], [address], 10/14/2024 06:15:41 10/14/19 25 10/14/2024 COMP. METAB OLIC PANEL (14) alkaline phosphatase 94 IU/L 44-121 Not Available [facility]) [address] [place], [address], 10/14/2024 06:15:41 10/14/19 25 10/14/2024 COMP. METAB OLIC PANEL (14) AST (SGOT) 19 IU/L 0-40 Not Available [facility] ([facility]) [address] [place], [address], 10/14/2024 06:15:41 10/14/19 25 10/14/2024 COMP. METAB OLIC PANEL (14) ALT (SGPT) 12 IU/L 0-32 Not Available [facility] ([facility]) [address] [facility], [place], [address], 10/14/2024 06:15:41 10/14/19 25 10/13/2024 HEMOG LOBIN A1C hemoglobin A1C 6.7 % 4.8-5. 6 above high normal Predi abete s: 5.7 - 6.4 Diabe valentino: >6.4 Glyce josé miguel contr ol for adult s with diabe valentino: <7.0 Not Available [facility] ([facility]) [address] [facility], [place], [address], 10/14/2024 06:15:42 10/14/19 25 10/13/2024 CBC WITH DIFFE RENTI AL/PL ATELE T WBC 9.3 x10e3 /uL 3.4-10 .8 Not Available [facility] ([facility]) [address] [place], [address], 10/14/2024 06:15:43 10/14/19 25 10/13/2024 CBC WITH DIFFE RENTI AL/PL ATELE T RBC 4.88 x10e6 /uL 3.77-5 .28 Not Available [facility] ([facility]) [address] [place], [address], 10/14/2024 06:15:43 10/14/19 25 10/13/2024 CBC WITH DIFFE RENTI AL/PL ATELE T hemoglobin 12.0 g/dL 11.1-1 5.9 Not Available [facility] ([facility]) [address] [place], [address], 10/14/2024 06:15:43 10/14/19 25 10/13/2024 CBC WITH DIFFE RENTI AL/PL ATELE T hematocrit 39.7 % 34.0-4 6.6 Not Available [facility] ([facility]) [address] [place], [address], 10/14/2024 06:15:43 10/14/19 25 10/13/2024 CBC WITH DIFFE RENTI AL/PL ATELE T MCV 81 fL 79-97 Not Available [facility] ([facility]) [address] [facility], [place], [address], 10/14/2024 06:15:43 10/14/19 25 10/13/2024 CBC WITH DIFFE RENTI AL/PL ATELE T MCH 24.6 pg 26.6-3 3.0 below low normal Not Available [facility] ([facility]) [address] [place], [address], 10/14/2024 06:15:43 10/14/19 25 10/13/2024 CBC WITH DIFFE RENTI AL/PL ATELE T MCHC 30.2 g/dL 31.5-3 5.7 below low normal Not Available [facility] ([facility]) [address] [facility], [place], [address], 10/14/2024 06:15:43 10/14/19 25 10/13/2024 CBC WITH DIFFE RENTI AL/PL ATELE T RDW 13.1 % 11.7-1 5.4 Not Available [facility] ([facility]) [address] [place], [address], 10/14/2024 06:15:43 10/14/19 25 10/13/2024 CBC WITH DIFFE RENTI AL/PL ATELE T platelets 304 x10e3 /uL 150-45 0 Not Available [facility] ([facility]) [address] [place], [address], 10/14/2024 06:15:43 10/14/19 25 10/13/2024 CBC WITH DIFFE RENTI AL/PL ATELE T neutrophils 72 % notest ab. Not Available [facility] ([facility]) [address] [place], [address], 10/14/2024 06:15:43 10/14/19 25 10/13/2024 CBC WITH DIFFE RENTI AL/PL ATELE T lymphs 16 % notest ab. Not Available [facility] ([facility]) [address] [facility], [place], [address], 10/14/2024 06:15:43 10/14/19 25 10/13/2024 CBC WITH DIFFE RENTI AL/PL ATELE T monocytes 8 % notest ab. Not Available [facility] ([facility]) [address] [facility], [place], [address], 10/14/2024 06:15:43 10/14/19 25 10/13/2024 CBC WITH DIFFE RENTI AL/PL ATELE T eos 2 % notest ab. Not Available [facility] ([facility]) [address] [facility], [place], [address], 10/14/2024 06:15:43 10/14/19 25 10/13/2024 CBC WITH DIFFE RENTI AL/PL ATELE T basos 1 % notest ab. Not Available [facility] ([facility]) [address] [facility], [place], [address], 10/14/2024 06:15:43 10/14/19 25 10/13/2024 CBC WITH DIFFE RENTI AL/PL ATELE T neutrophils (absolute) 6.8 x10e3 /uL 1.4-7. 0 Not Available [facility] ([facility]) [address] [facility], [place], [address], 10/14/2024 06:15:43 10/14/19 25 10/13/2024 CBC WITH DIFFE RENTI AL/PL ATELE T lymphs (absolute) 1.5 x10e3 /uL 0.7-3. 1 Not Available [facility] ([facility]) [address] [facility], [place], [address], 10/14/2024 06:15:43 10/14/19 25 10/13/2024 CBC WITH DIFFE RENTI AL/PL ATELE T monocytes(ab solute) 0.7 x10e3 /uL 0.1-0. 9 Not Available [facility] ([facility]) [address] [facility], [place], [address], 10/14/2024 06:15:43 10/14/19 25 10/13/2024 CBC WITH DIFFE RENTI AL/PL ATELE T eos (absolute) 0.2 x10e3 /uL 0.0-0. 4 Not Available [facility] ([facility]) [address] [facility], [place], [address], 10/14/2024 06:15:43 10/14/19 25 10/13/2024 CBC WITH DIFFE RENTI AL/PL ATELE T baso (absolute) 0.1 x10e3 /uL 0.0-0. 2 Not Available [facility] ([facility]) [address] [facility], [place], [address], 10/14/2024 06:15:43 10/14/19 25 10/13/2024 CBC WITH DIFFE RENTI AL/PL ATELE T immature granulocytes 1 % notest ab. Not Available [facility] ([facility]) [address] [facility], [place], [address], 10/14/2024 06:15:43 10/14/19 25 10/13/2024 CBC WITH DIFFE RENTI AL/PL ATELE T immature grans (abs) 0.1 x10e3 /uL 0.0-0. 1 Not Available [facility] ([facility]) [address] [facility], [place], [address], 10/14/2024 06:15:43 05/20/19 25 05/20/2024 CT, head + brain , w/o contr ast No observ ation record ed. [facility] [address] [place], [address], 05/24/2024 09:07:44 05/20/19 25 05/20/2024 XR, chest , 1 view No observ ation record ed. [facility] [address] [place], [address], 05/24/2024 09:07:56 05/20/19 25 05/20/2024 CT, angio gram, head + neck, w/wo contr ast No observ ation record ed. [facility] [address] [place], [address], 05/24/2024 09:08:50 05/20/19 25 05/20/2024 CT, angio gram, head, w/wo contr ast No observ ation record ed. [facility] [address] [place], [address], 05/24/2024 09:09:18 08/10/19 25 08/09/2024 CT, chest , w/o contr ast No observ ation record ed. [address], [place], [address], 08/11/2024 12:15:48 08/10/19 25 08/09/2024 CT, chest , w/o contr ast No observ ation record ed. [address], [place], [address], 08/23/2024 10:13:45 08/14/19 25 08/13/2024 CT, brain , w/o contr ast No observ ation record ed. [address], [place], [address], 08/14/2024 14:30:14 08/14/19 25 08/13/2024 XR, chest No observ ation record ed. [address], [place], [address], 08/14/2024 14:36:10 08/15/19 25 08/14/2024 MRI, brain , w/wo contr ast No observ ation record ed. [place] [id number] [facility] [address], [place], [address], 08/16/2024 09:35:45 08/15/19 25 08/14/2024 US, duple x, carot id arter y No observ ation record ed. [place] [id number] [facility] [address], [place], [address], 08/16/2024 09:36:52 08/15/19 25 08/14/2024 stres s echoc ardio gram with doppl er color flow (PROC ) No observ ation record ed. [place] [id number] [facility] [address], [place], [address], 08/16/2024 09:38:25 10/20/19 25 10/18/2024 US, thyro id No observ ation record ed. [facility] [address], [place], [address], 10/23/2024 14:43:57 10/21/19 25 10/18/2024 US, thyro id No observ ation record ed. [facility] [address], [place], [address], 10/23/2024 14:08:32 Result Notes None recorded. Problems Name Problem SNOMED Code Status Onset Date Resolution Date Notes Provider Name and Address Organization Details Recorded Time Diabetes mellitus 76101053 Active Kemi Oconnor RN null, [place] - [facility] 6 13:35:10 Essential hypertens ion 55953166 Active Ivan Schaefer MD Attn: Marielena fernandez,[address] [place], [address], [facility] [place] 6 11:41:12 Nodular goiter 795886229 Active 2023 [facility] 2022 right follicle neg Noel Ordaz MD Attn: Marielena fernandez,[address] [facility], [place], [address], [place] - [facility] 4 21:21:06 History of cerebrova scular accident 747720356 Active 2023 Noel Ordaz MD Attn: Marielena fernandez,[address] [facility], [place], [address], [place] [facility] 4 21:21:20 Dyslipide benson 197852745 Active 2023 Noel Ordaz MD Attn: Marielena fernandez,[address] [facility], [place], [address], [place] [facility] 4 21:21:32 Nodule of lung 899708356 Active 2023 Noel Ordaz MD Attn: Marielena fernandez,[address] [facility], [place], [address], [place] [facility] 5 21:16:33 Type 2 diabetes mellitus 09800674 Active 2023 Hermes Nichols MA null, [place] - [facility] 4 11:09:11 Visual disturban ce 01352582 Active 2023 Hermes Nichols [place] null[place] [facility] 4 11:09:12 Closed fracture of proximal left humerus 427869460071 [address]8631 Active 2023 Greta Rocha null[place] [facility] 5 11:56:49 Fracture of distal end of left radius Active 2023 Greta R[place] [facility] 5 11:57:29 Constipat ion 34222720 Active 2023 Noel Ordaz MD Attn: Marielena fernandez,[address] [facility], [place], [address], [place] [facility] 4 20:12:28 Rectal hemorrhag e 38867633 Active 2023 oNel Ordaz MD Attn: Marielena fernandez,[address] [facility], [place], [address], [place] - [facility] 4 20:12:33 Chronic obstructi ve pulmonary disease 16246842 Active 2024 Imani Luma ALIREZA null, [facility] 14:50:17 Problem Notes None recorded. Procedures Surgical History Date Name Laterality Status Provider Name and Address Organization Details Recorded Time 05/03/19 15 Diagnostic colonoscopy completed Shankar ALIREZA Moore [facility] 06/28/2015 14:33:09 Dilation and Curettage completed Shankar Moore MA [facility] 06/28/2015 14:33:09 Caesarean Section completed Shankar Moore MA [facility] 06/28/2015 14:33:09 Mammogram screening completed Shankar JordanALIREZA bae [facility] 06/28/2015 14:33:09 Back Surgery completed Shankar Moore MA [facility] 06/28/2015 14:33:09 Tonsillectomy completed Shankar Moore MA [facility] 06/28/2015 14:33:09 Cholecystectomy completed Shankar Moore MA [facility] 06/28/2015 14:33:09 Anesth nose/sinus surgery completed Shankar Moore [facility] 06/28/2015 14:33:09 Tubal Ligation completed Shankar Jordankathia [facility] 06/28/2015 14:33:09 Imaging Results None recorded. Procedure [...] Updated DateTime 5 167.64 cm 27.2 kg/m2 46321.6 7 g 65 /min 98 % 98 % 142/60 mm[Hg] [facility] 5 09:57:47 Date Recorded Body height Body mass index (BMI) Body weight Heart rate Oxygen saturation Oxygen saturation in Arterial blood by Pulse oximetry Systolic And Diastolic Provider Name and Address Organization Details Last Updated DateTime 5 167.64 cm 27 kg/m2 22584.6 4 g 72 /min 97 % 97 % 136/72 mm[Hg] Claritza [facility] 5 10:15:54 Date Recorded Body height Body mass index (BMI) Body weight Heart rate Oxygen saturation Oxygen saturation in Arterial blood by Pulse oximetry Systolic And Diastolic Provider Name and Address Organization Details Last Updated DateTime 5 167.64 cm 27 kg/m2 86534.9 3 g 61 /min 97 % 97 % 112/64 mm[Hg] Imani Ge MA [facility] 5 10:59:13 Date Recorded Body height Body mass index (BMI) Body weight Heart rate Oxygen saturation Oxygen saturation in Arterial blood by Pulse oximetry Systolic And Diastolic Provider Name and Address Organization Details Last Updated DateTime 4 167.64 cm 27.8 kg/m2 32000.3 2 g 68 /min 97 % 97 % 132/70 mm[Hg] Imani eG MA [facility] 4 11:57:10 Date Recorded Body height Body mass index (BMI) Body weight Heart rate Oxygen saturation Oxygen saturation in Arterial blood by Pulse oximetry Systolic And Diastolic Provider Name and Address Organization Details Last Updated DateTime 4 167.64 cm 27.5 kg/m2 45099.8 6 g 71 /min 98 % 98 % 160/80 mm[Hg] Jcarlos Quintana [place] - [facility] 11:56:36 Social History Question Answer Notes LastModified by Organizat ion Details LastModified Time Tobacco Smoking Status Former Smoker quit 2000 cigarettes NedALIREZA [place], [place] - [facility] 10/26/2023 10:38:42 Do You Have [...] available 06/28 14:33:10 Sister Neoplasm of lung [email or web address] Not available 2023 21:19:32 Medical History Condition Response Coronary Artery Disease N Other N Atrial Fibrillation N High Blood Pressure Y Kidney or Bladder Problems N Thyroid Problems N GI Problems N Depression N COPD N Blood Clots N Skin Problems N Anemia N Heart Attack (AR) N Anxiety Disorder N Diabetes Y Muscle, [...] 10/25/2023 15:46:52 pneumococcal polysaccharide PPV23 0 completed Vdea [place], [place] [facility] 10/25/2023 15:46:52 Tdap 9 completed Veda [place] [facility] 10/25/2023 15:46:52 Pneumococcal conjugate PCV 13 7 completed Veda [place] null, [place] [facility] 10/25/2023 15:46:52 pneumococcal, unspecified formulation 4 completed Veda [place] [facility] 10/25/2023 15:46:52 Influenza, high-dose, trivalent, PF 7 completed Veda [place] [facility] 10/25/2023 15:46:52 Influenza, high-dose, trivalent, PF 8 completed Veda [place] null[place] [facility] 10/25/2023 15:46:52 Influenza, high-dose, trivalent, PF 9 completed Veda [place] null[place] [facility] 10/25/2023 15:46:52 Influenza, high-dose, trivalent, PF 7 completed Veda [place] null[place] [facility] 10/25/2023 15:46:52 Influenza, split virus, trivalent, preservative 3 completed Veda [place] null, [place] [facility] 10/25/2023 15:46:52 Past Encounters Encounter ID Performer Location Encounter Start Date Encounter Closed Date Diagnosis/Indication Diagnosis SNOMED-CT Code Diagnosis ICD10 Code Diagnosis Note [id number] MD Shameka Rueda (Adult Med) [address] [place] [address] 06/28/2015 13:06:05 06/28/2015 14:52:20 Diabetes mellitus 74576700 E13.65 Essential hypertension 81419972 I10 [id number] MD Shameka Reyes (Adult Med) [address] [place] [address] 06/29/2023 09:50:25 06/29/2023 11:23:25 Essential hypertension 00125384 I10 Pain in right foot 77097 57307 62173 M79.671 Type 2 venkatesh betes mellitus 36986597 E11.9 Dyslipidemia 691069492 E 78.5 History of cerebrovascular accident 264793437 Z86.73 Nodular goiter 628393045 E04.9 Diabetes mellitus 957605 09 E11.9 Nodule of lung 926026340 R91.1 [id number] MD Shameka Reyes (Adult Med) [address] [place] [address] 10/26/2023 10:18:13 10/26/2023 11:19:48 Type 2 diabetes mellitus 40132836 E11.9 Visual disturbance 12870 001 H53.9 Overweight 648206626 E66 .3 Dyslipidemia 363623106 E 78.5 Essential hypertension 45985355 I10 Dysfunctio n of bilateral eustachian tubes 9743981413 668982 H69.93 [id number] MD Shameka Reyes (Adult Med) [address] [place] [address] 01/25/2024 10:19:16 01/25/2024 11:25:27 Overweight 132478508 E66.3 Rectal hemorrhage 456343 02 K62.5 Essential hypertension 13928531 I10 Diabetes mellitus 670226 09 E11.9 Constipation 83041041 K5 9.00 [id number] MD Shameka Reyes (Adult Med) [address] [place] [phone] 03/03/2024 11:13:16 03/03/2024 12:51:34 Type 2 diabetes mellitus 89781286 E11.9 Essential hypertension 86393777 I10 [id number] MD Shameka Reyes (Adult Med) [address] [place] [address] 04/07/2024 10:47:52 04/07/2024 12:46:34 Dyslipidemia 452900409 E78.5 Type 2 venkatesh betes mellitus 79748348 E11.9 Essential hypertension 29668594 I10 [id number] MD Shameka Reyes (Adult Med) [address] [place] [address] 06/23/2024 09:47:32 06/23/2024 10:48:20 Body mass index 25-29 - overweight 190145119 Z68.27 Overweight 592098157 E66 .3 Essential hypertension 39220675 I10 Ischemic stroke 55362839 2 I63.9 [id number] MD Shameka Reyes (Adult Med) [address] [place] [address] 08/23/2024 09:58:05 08/23/2024 10:49:05 Overweight in adulthood with body mass index of 25 or more but less than 30 981108214 Z68.27 Overweight 976813706 E66 .3 Vasovagal syncope 889489 005 R55 Dyslipidemia 379265899 E 78.5 History of cerebrovascular accident 813752724 Z86.73 Diabetes mellitus 893461 09 E11.9 [id number] MD Shameka Reyes (Adult Med) [address] [place] [phone] 10/13/2024 10:18:17 10/13/2024 11:39:40 Overweight in adulthood with body mass index of 25 or more but less than 30 444793415 E66.3 Z68.27 Essential hypertension 76430689 I10 Type 2 venkatesh betes mellitus 13871382 E11.9 Abnormal gait 60455960 R 26.9 Dyslipidemia 350246533 E 78.5 History of cerebrovascular accident 011330863 Z86.73 Health Concerns Section Related Observation LastModified by Organization Detai ls LastModified Time None Recorded Concern Status LastModified by Organization Details LastModified Time None Recorded Advance Directives Directive N: Payers Insurance Date Sequence Insurance Name Policy Number Policy Soto Covered Member ID Soto Member ID Guarantor Name 10/26/2023 1 [facility] - OPEN ACCESS (POS) Sury Yao [id number] Pinky Yao 10/16/2024 1 [facility] (MEDICARE REPLACEMENT/A DVANTAGE - HMO) [id number] Pinky Yao [id number] Pinky Yao OBGyn Episode No OBEpisode recorded.
== END 2024-11-27 10:00 | disposition home or self-care (01) ==
LOC: ANHIMG 10:00
PROVIDERS: PCP Internal Medicine; Visit Provider Internal Medicine
DX: Z12.31 Encounter for screening mammogram for malignant neoplasm of breast (principal)
CPT/HCPCS: 77063; 77067